=== PATIENT | male | born 1940 | race Caucasian/White ===

== ENCOUNTER → 2017-12-11 08:50 | Outpatient (CLI) | payer MEDICARE, OTHER, SELFPAY ==
[2017-09-06 13:33] VITALS: BP 122/60; BMI 26.3
--- NOTE | 2017-12-11 08:53 | CDU_ITS ---
Reason For Study: carotid stenosis Rt. Velocities/BP Lt. Velocities/BP Prox CCA 89.1/13.5 cm/sec. Prox CCA 107/15.7 cm/sec. Mid CCA 79.7/13.5 cm/sec. Mid CCA 77.0/15.7 cm/sec. Dist CCA 75.6/12.9 cm/sec. Dist CCA 78.6/14.7 cm/sec. Prox ICA 79.4/16.5 cm/sec. Prox ICA 82.1/24.0 cm/sec. Mid ICA 137/28.3 cm/sec. Mid ICA 145/38.5 cm/sec. Dist ICA 116/23.6 cm/sec. Dist ICA 89.6/22.8 cm/sec. Rt. ICA/CCA = 1.7. Lt. ICA/CCA = 1.9. Prox ECA 136/12.6 cm/sec. Prox ECA 97.9/11.1 cm/sec. Rt. Vert. 42.8/10.2 cm/sec. Lt. Vert. 72.3/17.3 cm/sec. Right Extracranial There is homogeneous, smooth atherosclerotic plaque noted in the right common carotid artery. There is heterogeneous, irregular atherosclerotic plaque noted in the right internal carotid artery. There is homogeneous, smooth atherosclerotic plaque noted in the right external carotid artery. Antegrade flow is noted in the right vertebral artery. Abnormal waveform morphology noted in the right vertebral artery. There is heterogeneous, irregular atherosclerotic plaque noted in the left bulb. Left Extracranial There is homogeneous, smooth atherosclerotic plaque noted in the left common carotid artery. There is heterogeneous, irregular atherosclerotic plaque noted in the left internal carotid artery. There is homogeneous, smooth atherosclerotic plaque noted in the left external carotid artery. Antegrade flow is noted in the left vertebral artery. There is heterogeneous, irregular atherosclerotic plaque noted in the left bulb. Procedure Carotid Duplex [id number]. The exam was diagnostic. Exam performed in department. Interpretation Summary Moderate (50-69%) stenosis right extracranial internal carotid. Moderate (50-69%) stenosis left extracranial internal carotid. Flow within the vertebral arteries is antegrade bilaterally. Ordering Physician: Cheng Youssef Performed By: Remy Villegas RVT
== END ==
PROVIDERS: Family Provider Internal Medicine; PCP Internal Medicine; Visit Provider Nurse Practitioner Family
DX: I65.23 Occlusion and stenosis of bilateral carotid arteries (principal)
CPT/HCPCS: 93880

== ENCOUNTER → 2018-04-22 10:35 | Outpatient (CLI) | payer MEDICARE, OTHER, SELFPAY ==
[2018-04-22 11:25] LABS: AST(SGOT) 27 U/L (15-37); Alanine Aminotransfer ALT/SGPT 29 U/L (16-61); Albumin, Serum 3.7 g/dL (3.2-5.0); Alkaline Phosphatase 63 U/L (45-117); Bilirubin, Direct 0.23 mg/dL (0.00-0.30); Cholesterol 161 mg/dL (200); Globulin 3.4 g/dL (2.2-4.2); High Density Lipoprotein 30 mg/dL; Protein, Total 7.1 g/dL (6.4-8.2); Triglycerides 137 mg/dL; Very Low Density Lipoprotein 27 mg/dL (5-40)
== END ==
PROVIDERS: Family Provider Internal Medicine; PCP Internal Medicine; Visit Provider Internal Medicine Cardiovascular Disease
DX: E78.5 Hyperlipidemia, unspecified (principal)
CPT/HCPCS: 36415; 80061; 80076

== ENCOUNTER → 2018-05-07 10:49 | Outpatient (CLI) | payer MEDICARE, OTHER, SELFPAY ==
[2018-05-07 12:42] LABS: Anion Gap 9 (5-15); BUN 12 mg/dL (7-18); BUN/Creat Ratio 14.4 RATIO (10-20); Calcium,Total 8.7 mg/dL (8.5-10.1); Chloride 108 mmol/L (98-107); Creatinine, Serum 0.83 mg/dL (0.70-1.30); EST Glomerular Filtration Rate 95 mL/min (>60); Est Glom Filt Rate - Afr Amer 115 mL/min (>60); Glucose 129 mg/dL (74-106); Potassium 3.7 mmol/L (3.5-5.1); Sodium Level 140 mmol/L (136-145)
[2018-05-07 12:56] LABS: BNP,B-Type NATRIURETIC PEPTIDE 580.8 pg/mL (0-100)
== END ==
PROVIDERS: Family Provider Internal Medicine; PCP Internal Medicine; Referring Provider Nurse Practitioner Family; Visit Provider Nurse Practitioner Family
DX: R06.09 Other forms of dyspnea (principal); I25.10 Atherosclerotic heart disease of native coronary artery without angina pectoris; Z95.1 Presence of aortocoronary bypass graft
CPT/HCPCS: 36415; 80048; 83880

== ENCOUNTER → 2018-10-15 11:55 | Outpatient (CLI) | payer MEDICARE, OTHER, SELFPAY ==
[2018-10-15 10:10] VITALS: BMI 25.7
--- NOTE | 2018-10-15 12:01 | RAD_ITS ---
STUDY: X-RAY CHEST REASON FOR EXAM: Male, 78 years old. Shortness of breath TECHNIQUE: PA and lateral views of the chest. COMPARISON: 08/18/2014 FINDINGS: Stable calcified right midlung granuloma The lungs are clear and expanded. There is no demonstrated pleural abnormality. Sternal cerclage wires and vascular clips are present from a prior sternotomy and coronary artery bypass graft procedure (CABG). Mild cardiomegaly. Normal mediastinum and susie. Normal visualized pulmonary arteries. Normal visualized aortic arch and descending thoracic aorta. Normal visualized thoracic spine. Normal visualized ribs, clavicles, and shoulders. There is no demonstrated abnormality of the visualized soft tissue structures of the upper abdomen. RAD/Chest PA and Lateral IMPRESSION: No acute cardiopulmonary disease Electronically Signed: Sam Rea DO at 11:38 EDT Tel , Service support ,
[2018-10-15 12:50] LABS: Absolute Lymphocyte Count 1.53 X10^3/ul (0.83-4.51); Absolute Neutrophil Count 2.8 X10^3/uL (2.0-7.7); Basophil# 0.04 X10^3/uL; Basophil% 0.8 % (0-1); Eosinophil# 0.26 X10^3/uL; Eosinophils% 5.2 % (0-5); Hematocrit 41.5 % (40-54); Hemoglobin 13.9 g/dl (13.0-16.5); Lymphocyte # 1.53 X10^3/ul (4.0); Lymphocyte % 30.4 % (19-41); Mean Corp Hgb Conc 33.5 g/gl (32-36); Mean Corpuscular Hgb 30.2 pg (27.0-32.0); Mean Corpuscular Volume 90.2 fL (80-94); Mean Platelet Vol. 10.5 fl (6.2-12.0); Neutrophil # 2.79 X10^3/uL (2.7-7.7); Neutrophil % 55.4 % (47-70); Platelet Count 286 K/mm3 (150-450); RBC Distribution Width CV 13.9 % (11.6-14.6); RBC Distribution Width SD 45.4 fl (35.1-43.9)
[2018-10-15 12:51] LABS: POSITIVE COUNT NO; POSITIVE DIFFERENTIAL NO; POSITIVE MORPHOLOGY NO
[2018-10-15 13:13] LABS: Anion Gap 9 (5-15); BUN 12 mg/dL (7-18); BUN/Creat Ratio 16.1 RATIO (10-20); Calcium,Total 9.6 mg/dL (8.5-10.1); Chloride 105 mmol/L (98-107); Creatinine, Serum 0.74 mg/dL (0.70-1.30); EST Glomerular Filtration Rate 108 mL/min (>60); Est Glom Filt Rate - Afr Amer 130 mL/min (>60); Glucose 106 mg/dL (74-106); Potassium 4.3 mmol/L (3.5-5.1); Sodium Level 139 mmol/L (136-145)
[2018-10-15 13:28] LABS: BNP,B-Type NATRIURETIC PEPTIDE 201.3 pg/mL (0-100)
== END ==
LOC: POLAB3 11:57 → RAD 11:59
PROVIDERS: Family Provider Internal Medicine; PCP Internal Medicine; Referring Provider Physician Assistant Medical; Visit Provider Physician Assistant Medical
DX: I25.10 Atherosclerotic heart disease of native coronary artery without angina pectoris (principal); I65.23 Occlusion and stenosis of bilateral carotid arteries; E78.00 Pure hypercholesterolemia, unspecified; I10 Essential (primary) hypertension; R06.09 Other forms of dyspnea
CPT/HCPCS: 36415; 71046; 80048; 83880; 85025

== ENCOUNTER → 2018-11-11 06:41 | Outpatient (CLI) | payer MEDICARE, OTHER, SELFPAY ==
[2018-10-15 10:10] VITALS: BMI 25.7
--- NOTE | 2018-11-11 06:43 | CDU_ITS ---
Reason For Study: BRUIT Rt. Velocities/BP Lt. Velocities/BP Prox CCA 85/8 cm/sec. Prox CCA 147/0 cm/sec. Mid CCA 83/8 cm/sec. Mid CCA 83/15 cm/sec. Dist CCA 64/12 cm/sec. Dist CCA 72/15 cm/sec. Prox ICA 67/14 cm/sec. Prox ICA 121/23 cm/sec. Mid ICA 115/22 cm/sec. Mid ICA 78/16 cm/sec. Dist ICA 140/15 cm/sec. Dist ICA 86/18 cm/sec. Rt. ICA/CCA = 1.6. Lt. ICA/CCA = .8. Prox ECA 126/0 cm/sec. Prox ECA 169/33 cm/sec. Rt. Vert. 77/15 cm/sec. Lt. Vert. 98/18 cm/sec. Right Extracranial There is intimal thickening but no significant atherosclerotic plaque noted in the right common carotid artery. There is heterogeneous, irregular atherosclerotic plaque noted in the right internal carotid artery. There is heterogeneous, smooth atherosclerotic plaque noted in the right external carotid artery. Antegrade flow is noted in the right vertebral artery. There is heterogeneous, smooth atherosclerotic plaque noted in the right bulb. Left Extracranial There is homogeneous, smooth atherosclerotic plaque noted in the left common carotid artery. There is heterogeneous, irregular atherosclerotic plaque noted in the left internal carotid artery. There is heterogeneous, irregular atherosclerotic plaque noted in the left external carotid artery. The Doppler flow velocities are elevated in the left vertebral artery, suggesting stenosis. Antegrade flow is noted in the left vertebral artery. There is heterogeneous, irregular atherosclerotic plaque noted in the left bulb. Procedure Carotid Duplex [id number]. Exam performed in department. Interpretation Summary Mild (<50%) stenosis right extracranial internal carotid. Moderate (50-69%) stenosis left extracranial internal carotid. Flow within the vertebral arteries is antegrade bilaterally. Ordering Physician: Lakshmi Raman Referring Physician: FAVIO RODRIGUEZ Performed By: Roma Barbosa, JOSE, RVT
--- NOTE | 2018-11-11 06:43 | ECHOCS_ITS ---
Reason For Study: Dyspnea/SOB Procedure This was a 2D Doppler, Color Flow transthoracic echocardiogram. Exam performed in department. Left Ventricle Normal LV size. The estimated ejection fraction is 50 %. Left ventricular systolic function is lower limits of normal. No regional wall motion abnormalities noted. Right Ventricle Normal RV size. Normal systolic function. Atria The left atrium is mildly enlarged. Normal right atrium. Mitral Valve Normal mitral valve. Mild-Moderate (1-2+) eccentric mitral valve insufficiency. Tricuspid Valve Normal tricuspid valve. Mild to moderate (1-2+) tricuspid valve insufficiency. Pulmonary artery systolic pressure is 50 mmHg. Aortic Valve Trisinus/trileaflet aortic valve. Mild focal aortic valve calcification. Peak aortic valve gradient 18 mmHg. Mean aortic valve gradient 9.4 mmHg. Mild (1+) eccentric aortic valve insufficiency. Pulmonic Valve Normal pulmonic valve. Great Vessels Normal aortic root. The pulmonary artery is normal size. Normal inferior vena cava. Pericardium/Pleural No pericardial effusion. Medication 22 gauge I.V. with prn adaptor inserted into right arm. Diluted definity 2ml given slow IV push to enhance endocardial definition. MMode/2D Measurements & Calculations LVIDd: 5.2 cm IVSd: 0.93 cm LVOT diam: 2.0 cm LVIDs: 3.8 cm LVPWd: 0.99 cm FS: 26.8 % LVOT area: 3.2 cm2 Ao root diam: 3.1 cm LAV(MOD-bp): 68.8 ml LVAd ap4: 40.7 cm2 LA dimension: 4.7 cm LAV(MOD-bp) Indexed: 33.0 ml/m2 EDV(MOD-sp4): 152.0 ml LAV(MOD-sp2): 66.8 ml EDV(sp4-el): 161.5 ml LAV(MOD-sp4): 70.3 ml LVAs ap4: 22.6 cm2 ESV(MOD-sp4): 59.1 ml ESV(sp4-el): 61.7 ml EF(MOD-sp4): 61.1 % EF(sp4-el): 61.8 % SV(MOD-sp4): 92.8 ml SV(sp4-el): 99.8 ml LA A4 area: 23.9 cm2 RA A4 area: 18.6 cm2 Time Measurements MV dec time: 0.17 sec Doppler Measurements & Calculations MV E max tacho: 81.5 cm/sec Med Peak E' Tacho: 5.8 cm/sec MV V2 max: 84.4 cm/sec MV A max tacho: 43.0 cm/sec E/E' med: 14.0 MV max P.9 mmHg MV E/A: 1.9 MV V2 mean: 51.3 cm/sec MV mean P.2 mmHg MV V2 VTI: 25.3 cm MVA(VTI): 3.5 cm2 MV P1/2t max tacho: 84.4 cm/sec Ao V2 max: 216.7 cm/sec AI max tacho: 394.5 cm/sec MV P1/2t: 85.4 msec Ao max P.8 mmHg AI max P.3 mmHg MV dec slope: 289.6 cm/sec2 Ao V2 mean: 139.4 cm/sec AI dec slope: 254.8 cm/sec2 Ao mean P.4 mmHg AI P1/2t: 453.6 msec MVA(P1/2t): 2.6 cm2 Ao V2 VTI: 56.1 cm ERIN(I,D): 1.6 cm2 ERIN(V,D): 1.7 cm2 LV V1 max: 116.2 cm/sec MR max tacho: 597.5 cm/sec SV(LVOT): 88.4 ml LV V1 max P.4 mmHg MR max P.8 mmHg LV V1 mean P.4 mmHg LV V1 mean: 69.2 cm/sec LV V1 VTI: 27.4 cm PA V2 max: 60.8 cm/sec PI end-d tacho: 124.2 cm/sec TR max tcaho: 335.1 cm/sec TR max P.9 mmHg Interpretation Summary Normal LV size. The estimated ejection fraction is 50 %. Left ventricular systolic function is lower limits of normal. The left atrium is mildly enlarged. Mild-Moderate (1-2+) eccentric mitral valve insufficiency. Mild to moderate (1-2+) tricuspid valve insufficiency. Mean aortic valve gradient 9.4 mmHg. Compared to previous study, the left ventricular systolic function is the same.. Ordering Physician: Lakshmi Raman Referring Physician: Laura Shannon Performed By: Jorge L Garcia RCS
--- NOTE | 2018-11-11 08:36 | STRESSREP ---
Stress Test Report Pharmacologic myocardial perfusion stress test. 78-year-old man with a history of chest pain and coronary artery disease. Stress protocol: Resting EKG demonstrates sinus bradycardia with a rate of 49 bpm normal intervals are noted resting blood pressure 170/80 mmHg. 0.4 mg of regadenoson was infused per usual protocol followed by rapid intravenous saline flush injection continuous EKG monitoring was performed. Patient maintained sinus rhythm throughout the recording. At rest there were nonspecific ST-T wave changes noted at peak infusion nonspecific ST-T wave changes were noted. The resting blood pressure 170/80 mmHg with a final blood pressure 140/82 mmHg. Myocardial perfusion protocol. 14.1 mCi of technetium 99m sestamibi was injected at rest. 0.4 mg of regadenoson was infused per usual protocol. At peak infusion 43.6 mCi of technetium 99m sestamibi was injected stress images were obtained stress and rest images were reconstructed and compared in the short axis vertical long horizontal long axis. Gated images were also obtained per Perfusion SPECT analysis: Review of the stress images demonstrate normal uptake of tracer noted in all areas of the myocardium. The resting images similarly demonstrate normal uptake of tracer noted in all areas of the myocardium. No areas of reversibility are noted suggest ischemia no previous infarct is noted. Gated SPECT analysis: The gated ejection fraction is noted to be 64%. Conclusion: Normal pharmacologic myocardial perfusion stress test. Preserved ejection fraction.
== END ==
PROVIDERS: Family Provider Internal Medicine; PCP Internal Medicine; Referring Provider Physician Assistant Medical; Visit Provider Physician Assistant Medical
DX: I25.10 Atherosclerotic heart disease of native coronary artery without angina pectoris (principal); Z95.1 Presence of aortocoronary bypass graft; R06.09 Other forms of dyspnea; I10 Essential (primary) hypertension; E78.00 Pure hypercholesterolemia, unspecified; I65.23 Occlusion and stenosis of bilateral carotid arteries; R06.02 Shortness of breath
CPT/HCPCS: 78452; 93017; 93306; 93880; A9500; Q9957; A4216; C8929; J2785

== ENCOUNTER → 2018-12-10 10:15 | Outpatient (CLI) | payer MEDICARE, OTHER, SELFPAY ==
[2018-11-21 10:00] VITALS: BMI 25.7
[2018-12-10 11:51] LABS: Anion Gap 7 (5-15); BUN 15 mg/dL (7-18); BUN/Creat Ratio 19.5 RATIO (10-20); Calcium,Total 9.3 mg/dL (8.5-10.1); Chloride 106 mmol/L (98-107); Creatinine, Serum 0.77 mg/dL (0.70-1.30); EST Glomerular Filtration Rate 104 mL/min (>60); Est Glom Filt Rate - Afr Amer 125 mL/min (>60); Glucose 112 mg/dL (74-106); Potassium 4.1 mmol/L (3.5-5.1); Sodium Level 141 mmol/L (136-145)
== END ==
PROVIDERS: Family Provider Internal Medicine; PCP Internal Medicine; Referring Provider Physician Assistant Medical; Visit Provider Physician Assistant Medical
DX: R06.09 Other forms of dyspnea (principal)
CPT/HCPCS: 36415; 80048

== ENCOUNTER → 2019-09-04 14:37 | Outpatient (CLI) | payer MEDICARE, OTHER, SELFPAY ==
[2019-07-17 10:17] VITALS: BMI 25.4
--- NOTE | 2019-09-04 14:41 | RAD_ITS ---
STUDY: X-RAY CHEST REASON FOR EXAM: Male, 79 years old. Fever and cough TECHNIQUE: PA and lateral views of the chest. COMPARISON: 10/15/2018 FINDINGS: There are interstitial fibrotic changes of the lungs. There is no demonstrated pleural abnormality. Stable granulomas calcification in the right lower lobe Sternal cerclage wires and vascular clips are present from a prior sternotomy and coronary artery bypass graft procedure (CABG). Normal mediastinum and susie. Normal visualized pulmonary arteries. Normal visualized aortic arch and descending thoracic aorta. Normal visualized thoracic spine. Normal visualized ribs, clavicles, and shoulders. There is no demonstrated abnormality of the visualized soft tissue structures of the upper abdomen. RAD/Chest PA and Lateral IMPRESSION: Degenerative changes, as described above. No demonstrated acute cardiopulmonary process. Electronically Signed: Augustus Ray MD at 10:29 EST , Service support ,
== END ==
PROVIDERS: PCP Internal Medicine; Referring Provider Internal Medicine; Visit Provider Internal Medicine
DX: R50.9 Fever, unspecified (principal)
CPT/HCPCS: 71046

== ENCOUNTER → 2020-05-11 15:48 | Outpatient (CLI) | payer MEDICARE, OTHER, SELFPAY ==
[2020-03-16 09:45] VITALS: BMI 25.6
== END ==
PROVIDERS: PCP Internal Medicine; Referring Provider Nurse Practitioner Adult Health; Visit Provider Nurse Practitioner Adult Health
DX: N30.01 Acute cystitis with hematuria (principal)
CPT/HCPCS: 87086; 87088; 87186

== ENCOUNTER → 2020-10-12 09:15 | Outpatient (CLI) | payer MEDICARE, OTHER, SELFPAY ==
[2020-09-30 13:38] VITALS: BMI 26.0
--- NOTE | 2020-10-12 09:19 | ECHOD_ITS ---
Reason For Study: SOB Procedure This was a 2D Doppler, Color Flow transthoracic echocardiogram. Exam performed in department. Left Ventricle Normal LV size. Left ventricular systolic function is normal. The estimated ejection fraction is 55 %. No regional wall motion abnormalities noted. Right Ventricle Normal RV size. Normal systolic function. Atria The left atrium is mildly enlarged. Normal right atrium. Mitral Valve Normal mitral valve. Mild-Moderate (1-2+) eccentric mitral valve insufficiency. Tricuspid Valve Normal tricuspid valve. Mild to moderate (1-2+) tricuspid valve insufficiency. Pulmonary artery systolic pressure is 38 mmHg. Aortic Valve Trisinus/trileaflet aortic valve. Mild focal aortic valve calcification. Peak aortic valve gradient 22 mmHg. Mean aortic valve gradient 16 mmHg. Calculated aortic valve area (continuity equation) is 1.6 cm2. Mild (1+) eccentric aortic valve insufficiency. Pericardium/Pleural No pericardial effusion. MMode/2D Measurements & Calculations LVIDd: 4.6 cm IVSd: 1.0 cm LVOT diam: 2.0 cm LVIDs: 3.5 cm LVPWd: 1.1 cm LVOT area: 3.2 cm2 RVDd: 3.5 cm FS: 24.4 % Ao root diam: 3.2 cm LAV(MOD-bp): 71.4 ml LA A4 area: 24.4 cm2 LAV(MOD-bp) Indexed: 34.4 ml/m2 LAV(MOD-sp2): 63.2 ml LAV(MOD-sp4): 73.2 ml LA dimension(2D): 4.9 cm RA A4 area: 18.6 cm2 Doppler Measurements & Calculations MV E max memo: 90.0 cm/sec Ao V2 max: 235.3 cm/sec AI max memo: 398.5 cm/sec Ao max P.3 mmHg AI max P.6 mmHg Ao V2 mean: 165.3 cm/sec Ao mean P.3 mmHg AI dec slope: 269.9 cm/sec2 Ao V2 VTI: 53.8 cm AI P1/2t: 432.4 msec ERIN(I,D): 1.5 cm2 ERIN(V,D): 1.6 cm2 LV V1 max: 116.5 cm/sec SV(LVOT): 82.1 ml PA V2 max: 72.0 cm/sec LV V1 max P.4 mmHg LV V1 mean P.7 mmHg LV V1 mean: 77.6 cm/sec LV V1 VTI: 25.3 cm TR max memo: 290.4 cm/sec TR max P.9 mmHg Interpretation Summary Normal LV size. Left ventricular systolic function is normal. The estimated ejection fraction is 55 %. Mean aortic valve gradient 16 mmHg. Mild (1+) eccentric aortic valve insufficiency. Calculated aortic valve area (continuity equation) is 1.6 cm2. The left atrium is mildly enlarged. Ordering Physician: Cheng Youssef/Benito Diaz Referring Physician: Laura Shannon M.D. Performed By: Teresa Jon RDCS
[2020-10-12 10:14] LABS: AST(SGOT) 33 U/L (15-37); Alanine Aminotransfer ALT/SGPT 37 U/L (16-61); Albumin, Serum 3.8 g/dL (3.2-5.0); Alkaline Phosphatase 84 U/L (45-117); Bilirubin, Direct 0.23 mg/dL (0.00-0.30); Cholesterol 202 mg/dL (200); Globulin 3.7 g/dL (2.2-4.2); High Density Lipoprotein 34 mg/dL; Protein, Total 7.5 g/dL (6.4-8.2); Triglycerides 183 mg/dL; Very Low Density Lipoprotein 37 mg/dL (5-40)
== END ==
PROVIDERS: PCP Internal Medicine; Referring Provider Nurse Practitioner Family; Visit Provider Nurse Practitioner Family
DX: I25.10 Atherosclerotic heart disease of native coronary artery without angina pectoris (principal); Z95.1 Presence of aortocoronary bypass graft; E78.00 Pure hypercholesterolemia, unspecified; I10 Essential (primary) hypertension; G45.9 Transient cerebral ischemic attack, unspecified
CPT/HCPCS: 36415; 80061; 80076; 93306

== ENCOUNTER → 2021-01-13 06:21 | Outpatient (CLI) | payer MEDICARE, OTHER, SELFPAY ==
[2021-01-06 14:30] VITALS: BMI 26.0
--- NOTE | 2021-01-13 06:23 | CDU_ITS ---
Reason For Study: Lightheadedness Rt. Velocities/BP Lt. Velocities/BP Prox CCA 61.7/10.8 cm/sec. Prox CCA 77.2/10.2 cm/sec. Mid CCA 60.4/8.2 cm/sec. Mid CCA 57.5/6.9 cm/sec. Dist CCA 55.2/12.1 cm/sec. Dist CCA 53.1/9.1 cm/sec. Prox ICA 53.9/8.2 cm/sec. Prox ICA 77.3/24.5 cm/sec. Mid ICA 76/16 cm/sec. Mid ICA 135.7/27.9 cm/sec. Dist ICA 96.3/13.9 cm/sec. Dist ICA 72.8/15.1 cm/sec. Rt. ICA/CCA = 1.59. Lt. ICA/CCA = 2.36. Prox ECA 95.6 cm/sec. Prox ECA 66.2 cm/sec. Rt. Vert. 64.1 cm/sec. Lt. Vert. 81.4/12.6 cm/sec. Right Extracranial There is intimal thickening but no significant atherosclerotic plaque noted in the right common carotid artery. There is heterogeneous, irregular atherosclerotic plaque noted in the right internal carotid artery. There is heterogeneous, smooth atherosclerotic plaque noted in the right external carotid artery. Abormal waveform morphology noted in the right vertebral artery. There is heterogeneous, irregular atherosclerotic plaque noted in the right bulb. Left Extracranial There is homogeneous, smooth atherosclerotic plaque noted in the left common carotid artery. There is heterogeneous, irregular atherosclerotic plaque noted in the left internal carotid artery. There is heterogeneous, irregular atherosclerotic plaque noted in the left external carotid artery. Antegrade flow is noted in the left vertebral artery. There is heterogeneous, irregular atherosclerotic plaque noted in the left bulb. Procedure Carotid Duplex [id number]. This is a Carotid Duplex examination using B-mode, color flow and specral Doppler. Exam performed in department. VL/Carotid Duplex Ultrasound Interpretation Summary Mild (<50%) stenosis right extracranial internal carotid. Moderate (50-69%) ivone nosis left extracranial internal carotid. Flow within the vertebral arteries is antegrade bilaterally. Ordering Physician: Cheng Youssef Referring Physician: Laura Shannon M.D. Performed By: Francisca Cabrera RVT
--- NOTE | 2021-01-13 17:16 | STRESSREP_ITS ---
Stress Test Report Pharmacologic myocardial perfusion stress test. 80-year-old male with a history of coronary artery disease status post carotid bypass surgery and atrial fibrillation. Stress protocol: Resting EKG demonstrates sinus bradycardia with a rate of 52 bpm normal intervals are noted. Resting blood pressure is 142/70 mmHg. 0.4 mg of regadenoson was infused per usual protocol followed by rapid venous flush injection continuous EKG monitoring was performed. The patient maintained atrial fibrillation throughout the recording. The maximum heart rate was 75 bpm which was 53% of max infected heart rate the maximum workload was 1 metabolic equivalent. At rest there were no ST or T wave changes noted to suggest abnormal flow reserve and at peak infusion nonspecific ST changes were noted with did not meet the criteria for abnormal flow reserve. No clinical angina was noted the resting blood pressure is 142/70 mmHg final blood pressure is 13 8/70 mmHg. Myocardial perfusion protocol. 11.3 mCi of technetium 99m sestamibi was injected at rest. 0.4 mg of regadenoson was infused per usual protocol. At peak infusion 31.3 mCi of technetium 99m sestamibi was injected stress images were obtained stress and rest images were reconstructed in comparing the short axis vertical long and horizontal long axis. Gated images were also obtained per Perfusion SPECT analysis: Review of the stress images demonstrate normal uptake of tracer noted in all areas of the myocardium. There is probable mild diminution of uptake noted in the distal anterior wall. The resting images similarly demonstrate normal uptake of tracer noted in all areas of the myocardium. The mild diminution in the distal anterior mcfarlane persists. No areas of reversibility are noted suggest ischemia and no previous infarct is noted. Gated SPECT analysis: The gated ejection fraction is 69%. Conclusion: Normal pharmacologic myocardial perfusion stress test. Preserved ejection fraction. Atrial fibrillation.
== END ==
PROVIDERS: PCP Internal Medicine; Referring Provider Nurse Practitioner Family; Visit Provider Nurse Practitioner Family
DX: I65.22 Occlusion and stenosis of left carotid artery (principal); R42 Dizziness and giddiness; Z95.1 Presence of aortocoronary bypass graft; I25.10 Atherosclerotic heart disease of native coronary artery without angina pectoris; I50.32 Chronic diastolic (congestive) heart failure; I11.0 Hypertensive heart disease with heart failure; E78.00 Pure hypercholesterolemia, unspecified
CPT/HCPCS: 78452; 93017; 93880; A9500; A4216; J2785

== ENCOUNTER → 2021-02-07 13:53 | Outpatient (CLI) | payer MEDICARE, OTHER, SELFPAY ==
[2021-01-28 11:55] VITALS: BMI 25.4
--- NOTE | 2021-02-07 13:55 | ART_ITS ---
Reason For Study: Claudication Procedure A bilateral lower extremity continuous wave Doppler with analog waveform analysis,segmental pressures,and ankle brachial indexes without exercise. Left Segmental Pressures Left brachial= 132mmHg. Left posterior tibial artery = 176mmHg. Left dorsalis pedis artery = 165mmHg. Right Segmental Pressures Right brachial= 135mmHg. Right posterior tibial artery = 140mmHg. Right dorsalis pedis artery = 154mmHg. Indices The right ankle brachial index by the posterior tibial artery is 1.04. The right ankle brachial index by the dorsalis pedis is 1.14. The left ankle brachial index by the posterior tibial artery is 1.30. The left ankle brachial index by the dorsalis pedis is 1.22. VL/Lower Ext Art Exam w/o Exercis Interpretation Summary No evidence of occlusive disease at rest with an HARPER 1.14 on the right and 1.3 on the left. Bilateral triphasic flow. Ordering Physician: Cheng Youssef Referring Physician: Cheng Youssef Performed By: Harriet Youssef RDCS/RVT
== END ==
PROVIDERS: PCP Internal Medicine; Referring Provider Nurse Practitioner Family; Visit Provider Nurse Practitioner Family
DX: I73.9 Peripheral vascular disease, unspecified (principal)
CPT/HCPCS: 93923

== ENCOUNTER 2021-04-14 09:59 | Day surgery (SDC) | payer MEDICARE, OTHER, SELFPAY ==
--- NOTE | 2021-04-07 12:07 | RAD_ITS ---
STUDY: X-RAY CHEST REASON FOR EXAM: Male, 80 years old. For [employer] VR implant with Dr. Diaz on 04/14/2021. TECHNIQUE: Frontal and lateral views of the chest. COMPARISON: 09/04/2019. FINDINGS: Stable mild hyperexpansion. Stable scattered healed granulomatous calcifications. There is no demonstrated pleural abnormality. Stable cardiomegaly with sternotomy wires and clips projected over the cardiac silhouette. Normal mediastinum and susie. Normal visualized pulmonary arteries. Normal visualized aortic arch and descending thoracic aorta. Normal visualized thoracic spine. Normal visualized ribs, clavicles, and shoulders. There is no demonstrated abnormality of the visualized soft tissue structures of the upper abdomen. RAD/Chest PA and Lateral IMPRESSION: Stable chest with no acute or active cardiopulmonary disease. Electronically Signed: Elie Toribio MD at 10:48 EDT , Service support ,
[2021-04-07 12:35] LABS: Bacteria 0 SEEN /hpf (None Seen); Mucous, Urine 0 SEEN /hpf (<or=2+); Red Blood Cells-Urine 0 SEEN /hpf (0-5); Squamous Epithelial Cells - UA 0 SEEN /hpf (0-5); White Blood Cells 0 SEEN /hpf (0-5)
[2021-04-07 13:05] LABS: Hemoglobin 13.4 g/dL (13.0-16.5); Mean Corp Hgb Conc 35.3 g/dL (32-36); Mean Corpuscular Hgb 31.9 pg (27.0-32.0); Mean Corpuscular Volume 90.5 fL (80-94); Mean Platelet Vol. 10.4 fl (6.2-12.0); Platelet Count 261 K/mm3 (150-450); RBC Distribution Width CV 13.3 % (11.6-14.6); RBC Distribution Width SD 44.1 fl (35.1-43.9); White Blood Count 4.5 K/mm3 (4.4-11.0)
[2021-04-07 13:16] LABS: International Normalized Ratio 1.3
[2021-04-07 13:22] LABS: Color, Urine Yellow (Yellow); Glucose, Dipstick Normal (Normal); Ketone-Dipstick Negative (Negative); Leukocyte Esterase-Dipstick Negative /ul (Negative); Nitrite-Dipstick Negative (Negative); Occult Blood-Urine Negative /ul (Negative); Protein-Dipstick Negative (Negative); Specific Gravity, Urine 1.005 (1.002-1.030); Urine Bilirubin Dipstick Negative (Negative); Urine Clarity Clear (Clear); Urine Urobilinogen Normal (Normal)
[2021-04-07 13:27] LABS: Anion Gap 6 (5-15); BUN 16 mg/dL (7-18); BUN/Creat Ratio 16.1 RATIO (10-20); Calcium,Total 9.1 mg/dL (8.5-10.1); Chloride 104 mmol/L (98-107); EST Glomerular Filtration Rate 77 mL/min (>60); Est Glom Filt Rate - Afr Amer 93 mL/min (>60); Glucose 134 mg/dL (74-106); Potassium 3.9 mmol/L (3.5-5.1); Sodium Level 136 mmol/L (136-145)
[2021-04-08 16:25] LABS: Specimen Processing Control TNPT
[2021-04-13 10:01] VITALS: BMI 26.0
--- NOTE | 2021-04-14 08:19 | PCM.HP.BLA ---
History and Physical Date of Admission: 04/14/21 REMY BLACKBURN, is a 80 M who [facility] to [facility]ra Pacemaker placement. He has a history of coronary artery disease with bypass surgery in 2000. He did have a left internal mammary artery to the left anterior descending artery and diagonal as a sequential graft, radial graft to the obtuse marginal branch, and saphenous vein graft to the right coronary artery. He also has a history of hypertension, hyperlipidemia, left carotid stenosis estimated at 50 to 70%. He presents for follow-up visit. He completed a 30-day event monitor to assess paroxysmal atrial fibrillation. During such monitoring he has had multiple pauses 3 seconds or greater. This included a 3.3 seconds, two at 3 seconds, and a 3.4 seconds. He has also had short runs of ventricular tachycardia. He had atrial fibrillation throughout. He was initially started on Eliquis and metoprolol therapy. After noted pauses, his beta-loly was discontinued. He continued to have pauses after discontinuing beta-loly. He denies chest, arm, jaw, or neck discomfort. He continues with shortness of breath with exertion. He does not feel this to be worsening. This is most noted when carrying something. He denies symptoms of shortness of breath at rest, orthopnea, PND, sudden weight gain, or bilateral lower extremity edema. He denies chronic cough. He denies palpitations, lightheadedness, near syncope, or syncopal episodes. He states dizziness with position changes. He denies claudication issues. He denies fever or chills. He denies blood in urine, blood in stool, or epistaxis. He denies myalgia. He denies unexplainable fatigue. His exercise tolerance is stable. He does acknowledge intermittent snoring. He states difficulty sleeping. 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: No Is patient in pain?: No Allergies No Known Allergies Allergy (Verified 02/28/21 14:36) Medications See EMR COUNT INCLUDES THE [facility] Medical History (Updated 03/22/21 @ 14:09 by Danielle Rendon) Atherosclerosis of coronary artery of [place] heart without angina pectoris Chronic diastolic (congestive) heart failure Dizziness and giddiness Dyspnea on exertion Edema Essential (primary) hypertension 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 Persistent atrial fibrillation Pulmonary embolism Pure hypercholesterolemia Secondary pulmonary arterial hypertension Shortness of breath Sick sinus syndrome Stenosis of left carotid artery TIA (transient ischemic attack) Surgical History H/O coronary artery bypass surgery (06/2001) History of hip replacement History of skin graft 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 Family History Father CAD (coronary artery disease) Mother CAD (coronary artery disease) Brother CAD (coronary artery disease) Social History Smoking Status: Never smoker alcohol intake: never substance use type: does not use caffeine: Yes Type: coffee Number of servings: 2 ROS Const Const: Negative for fatigue, weakness, body ache, fever(s) or chills ENT ENT: Positive for dizziness; Negative for Nosebleed/epistaxis Cardio Chest Pain: No Palpitations: No Edema: None Muscle aches with walking: None Resp Respiratory: Positive for SOB with activity and snoring; Negative for SOB at rest, SOB orthopnea\SOB lying down, Cough or paroxysmal nocturnal dyspnea GI GI: Negative nausea, vomiting blood/hematemesis, bright, red blood in stools or black,tarry stools : Negative for hematuria or frequent nighttime urination/ nocturia Musc Musc: Negative for muscle aches/ myalgia Skin Skin: Negative non-healing lesions or rash Neuro Neuro: Positive for dizziness; Negative for lightheadedness, near syncope, syncope, orthostatic symptoms or weakness Endo Endo: Negative for fatigue Allergy Allergy/Immunology: Negative for rash Cardiology Exam Const Appearance: cooperative, healthy appearing, comfortable and no acute distress Nutritional Appearance: average body habitus and well nourished Orientation: alert, awake and oriented x3 Head Head: normal to inspection Ears: hearing grossly normal bilaterally Nose: external nose normal Face and Sinus: face symmetric Mouth: oral mucosae normal Eyes General: appearance normal, both eyes and all related structures Eyelids: eyelids normal EOM: EOM intact bilaterally Neck Neck: normal visual inspection and no JVD Carotids: normal carotid upstroke Chest Chest inspection: normal inspection of the chest, symmetric chest movement and normal respiratory effort; Negative cough Auscultation: Bilateral: Clear to Auscultation Cardio Rate: regular rate Rhythm: regular rhythm Heart sounds: S1 normal and S2 normal; Negative rub, gallop or murmur GI GI: normal to inspection Neuro General: patient alert, patient awake, patient oriented x3 and CN's II-XI intact bilaterally Skin Skin: no rashes or lesions noted Extremities Pulses: Normal: Right Posterior Tibial Pulse, Left Posterior Tibial Pulse, Right Radial Pulse and Left Radial Pulse Lower Extremity Edema: None: Bilateral Psych Psychological: normal affect Assessment and Plan Assessment and Plan (1) H/O coronary artery bypass surgery: Status: Resolved Comment: CABG x 4 Sequential ARREAGA to LAD and D1, radial graft to OM1, SVG to RCA 06/2001 Plan - Cheng Youssef NP, SCIENTIFIC AFFAIRS MANAGER-C: His most recent stress test on 01/13/2021 was negative for ischemia. He denies any chest, arm, jaw, or neck discomfort suggestive of angina. His shortness of breath is slightly improved. At this time, he will continue current medical therapy and we will continue to monitor. (2) Atherosclerosis of coronary artery of [place] heart without angina pectoris: Status: Chronic Qualifiers: Coronary Disease-Associated Artery/Lesion type: [place] artery Qualified Code(s): I25.10 - Atherosclerotic heart disease of [place] coronary artery without angina pectoris Plan - Cheng Youssef NP, SCIENTIFIC AFFAIRS MANAGER-C: He will continue current medical therapy. (3) Chronic diastolic (congestive) heart failure: Status: Chronic Gerardo - Cheng Youssef NP, SCIENTIFIC AFFAIRS MANAGER-C: He does knowledge improvement in symptoms since increasing hydrochlorothiazide therapy. However, his shortness of breath remains. At this time, he will continue current medical therapy and we will continue to monitor. We will consider laboratory evaluation or Lasix therapy in the future depending on overall progress. (4) Nonrheumatic aortic (valve) stenosis with insufficiency: Status: Chronic Gerardo - hCeng Youssef NP, SCIENTIFIC AFFAIRS MANAGER-C: This appears stable. He will continue current medical therapy. (5) Essential (primary) hypertension: Status: Chronic Gerardo - Cheng Youssef NP, SCIENTIFIC AFFAIRS MANAGER-C: Over time, depending on overall progress, we could consider tighter blood pressure control with additional agents such as amlodipine. (6) Pure hypercholesterolemia: Status: Chronic Gerardo - Cheng Youssef NP, SCIENTIFIC AFFAIRS MANAGER-C: He will continue current medical therapy . (7) Stenosis of left carotid artery: Status: Chronic Gerardo - Cheng Youssef NP, SCIENTIFIC AFFAIRS MANAGER-C: He will continue current medical therapy. (8) Sinus pause: Status: Acute Plan - Cheng Youssef SCIENTIFIC AFFAIRS MANAGER, SCIENTIFIC AFFAIRS MANAGER-C: He has had multiple episodes of pauses greater than 3 seconds. These appear to be occurring in [employer] [facility] [employer] and patient appears asymptomatic with such. At this time, he was asked to proceed with Micra pacemaker placement. This will also help assess and assist with atrial fibrillation management as well. (9) Paroxysmal atrial fibrillation: Status: Acute Plan - Cheng Youssef SCIENTIFIC AFFAIRS MANAGER, SCIENTIFIC AFFAIRS MANAGER-C: Patient's 30-day event monitor has predominantly showed atrial fibrillation. Due to pauses, we will not reinitiate beta-loly therapy. He will continue with Eliquis therapy for CVA protection. Over time, we will continue to monitor associated symptoms and consider antiarrhythmic medication or cardioversion as necessary along with beta loly therapy for rate control. Plan Details Additional Comments: Thank you for allowing us to participate in the patients plan of care, if you have any questions please do not hesitate to call. This note was generated using a voice recognition system and there may be incorrect words, spelling or punctuation that were not noted when reviewing the office note prior to saving. COVID (Procedure Consent) Procedure Criteria Procedure Criteria: Yes Elective The surgeon/proceduralist and patient have discussed in detail the risk of exposure to and/or potential harm posed by the COVID-19 virus with having a surgery/procedure at this time versus the risk of delaying the surgery/procedure. It is not possible to know either the risk of delaying the surgery or procedure or chance of getting an infection with perfect accuracy, but a joint decision was made between the patient and the surgeon/proceduralist to proceed at this time with the scheduled surgery/procedure as indicated on the consent form. Supplemental Information Echocardiogram from 10/12/2020: Interpretation Summary Normal LV size. Left ventricular systolic function is normal. The estimated ejection fraction is 55 %. Mean aortic valve gradient 16 mmHg. Mild (1+) eccentric aortic valve insufficiency. Calculated aortic valve area (continuity equation) is 1.6 cm2. The left atrium is mildly enlarged. Stress test from 01/13/2021: Conclusion: Normal pharmacologic myocardial perfusion stress test. Preserved ejection fraction. Atrial fibrillation. Carotid duplex ultrasound from 01/13/2021: Interpretation Summary Mild (<50%) stenosis right extracranial internal carotid. Moderate (50-69%) stenosis left extracranial internal carotid. Flow within the vertebral arteries is antegrade bilaterally.
--- NOTE | 2021-04-14 12:10 | OP.PCM_ITS ---
Problems Associated Problem List Diagnoses (1) Persistent atrial fibrillation: (2) Sinus pause: Operative Report Date of Procedure: 04/14/21 Insertion also leadless VVI pacemaker via the right femoral vein. MICRA Diagnosis symptomatic bradycardia atrial fibrillation with a slow ventricular response rate with pauses. After informed consent was obtained and shared decision-making was undertaken the patient was brought to the cardiac catheterization lab in the right and left groins were prepped and draped in a sterile manner. Procedural antibiotics were administered. The patient was sedated with intravenous Versed and fentanyl in bolus aliquots. 1% subcutaneous Xylocaine was used for local analgesia. Femoral vein access was achieved via the Seldinger technique and confirmed by positioning of the guidewire into the superior vena cava under fluoroscopic guidance. Over the wire the Susannah dilator was used to dilate the femoral vein access to up to 20 Icelandic. The Susannah dilator was removed. After thorough flushing of the sheath with heparinized saline the 23 Icelandic delivery sheath was inserted and advanced over the wire under fluoroscopic guidance to the floor of the right atrium. A bolus of 5000 units of intravenous heparin was administered. The delivery catheter and leadless pacemaker were then brought into the field and was flushed thoroughly with heparinized saline used to express all air distally. Saline flush was used to flush the suture at the proximal end of the distal delivery sheath handle. Through the delivery sheath the delivery catheter and leadless pacemaker were advanced through the sheath to the floor of the right atrium under fluoroscopic guidance. The delivery catheter and pacemaker were advanced beyond the delivery sheath with appropriate deflection and manipulation the delivery catheter and pacemaker were advanced under fluoroscopic guidance in the OLIVAS projection across the tricuspid valve into the right ventricle. In the SETSWANA projection the delivery sheath was positioned in from a position with the right ventricular septal wall. Contrast injection confirmed firm contact with the right ventricular wall along the septum and excluded an apical position. The delivery sheath was then flushed with heparinized saline. The leadless pacemaker was then deployed in the delivery sheath was pulled back to an adequate position to complete the tug test. Under magnified view with cine imaging the tug test was completed and confirmed with no less than 2 of the 4 times noted to be in excellent contact of the myocardium and there was no dislodgment of the pacemaker. Testing was performed of the device and acceptable sensing impedance and capture thresholds were obtained. The testing of the pacemaker was repeated multiple times and confirmed to be adequate and stable. The delivery sheath was flushed again with heparinized saline one end of the suture was cut and the suture was slowly withdrawn from the delivery sheath. Once the suture was removed the pacemaker was tested again and confirmed appropriate and stable electrical parameters. There was no change in position of the device after the suture was removed. The delivery catheter and sheath were then removed from the femoral vein hemostasis was obtained with a surgical pursestring closure with use of a three- way stopcock and manual pressure for 10 minutes. The patient left the room in stable condition with the pacemaker programmed to appropriate parameters with a VVI of 50 bpm. R waves were noted to be 20 mV, pacing impedance of 770 ohms and pacing threshold of 0.63 V at 0.24 ms. Device information electrocoagulator and serial number were provided in the chart.
--- NOTE | 2021-04-15 07:54 | PCM.PN.CARD ---
Subjective Subjective Patient seen and evaluate. Appears to be doing well. No problems overnight. Groin site looks good. Objective Data Vital Signs: Weight: 192 lb Body Mass Index (BMI) 26.0 Lab / Micro Data Result Diagrams: 04/07/21 12:34 04/07/21 12:34 Cardiology Labs/Tests Rhythm: EKG: ECHO: Stress Test: Cardiac Cath: PCI: CT Surgery: Holter monitor: EPS: PPM: CXR: Chest CT Scan: Physical Exam Const alert, oriented x3 and no apparent distress General Appearance: cooperative HEENT hearing grossly normal bilaterally Head and Scalp: atraumatic Eyes EOMs intact bilaterally Neck General: normal visual inspection Chest inspection of chest normal and palpation of chest normal Resp normal respiratory effort Auscultation: clear to auscultation bilaterally Cardio regular rate, regular rhythm, S1 normal heart sound and S2 normal heart sound Jugular Venous Distention: JVD GI normal to inspection, nondistended, normoactive bowel sounds Extremity normal capillary refill and no pedal edema Peripheral Pulses: Yes pulses 2+ throughout and femoral pulses present Skin no rashes or lesions noted Neuro oriented x3 and CN's II-XII intact bilaterally Psych Appearance: grossly normal and appropriate Assessment & Plan Assessment/Plan (1) Persistent atrial fibrillation: PLAN: Patient is status post permanent pacemaker implantation with a Micra device. Appears to be doing well. Pacemaker interrogated today and is functioning well. Will discharge for outpatient follow-up.
--- NOTE | 2021-04-15 07:55 | PCM.DC ---
Discharge Instructions Diet Discharge Diet: No restrictions (as you feel able. No excessive stretching. No lifting your arm over your head (keep elbow below shoulder level) until seen for your pacemaker check. Do not lift your elbow away from your side until you are seen for your first visit. Keep the arm sling on if it helps remind you not to lift your arm.) Activity Additional Activity Instructions:: May shower or bathe on []. Do not scrub the incision or soak in the tub. Just wash with soap and let the water run over the incision. Gently pat dry with towel. Medications: Take your pain medication as directed. Refer to your discharge instruction sheet for a list of medications you are to take. Dressing / Incision Call your doctor if your incision/area has: Continuous Slow Oozing, Sudden Increased Bleeding, Increased Pain/ Swelling, Increased Redness, Foul Smelling Discharge and Swelling at the incision site Call your doctor if you observe: Fever of 101 or Higher, Shortness of breath, Dizziness, Fainting spells, Swelling in the ankles, Chest pain, Prolonged hiccupping and Increased palpitations (irregular heartbeat) Additional Dressing/Incision Instructions:: When dressing is removed, wash and dry incision. Keep covered with a light bandage if it is rubbing against your clothing. Do not cover the incision with an airtight bandage. Change the bandage daily. Do not remove steri strips. The strips will fall off on their own. Follow Up Care Please Follow Up With: Benito Diaz MD When: Call [phone] for follow up. Follow-up with pacemaker clinic on April 22 at 11 AM Test Results: Test results from this visit will be discussed in further detail at your follow-up appointment, if applicable. Discharge Plan Admission Attending Provider: Benito Diaz Primary Care Provider: Laura Shannon Discharge Orders/Prescriptions Prescriptions: No Action dutasteride 0.5 mg capsule 0.5 mg PO DAILY RF: 0 oxybutynin chloride 10 mg tablet extended release 24hr 10 mg PO DAILY RF: 0 nitroglycerin 0.4 MG tablet 0.4 mg SUBLINGUAL Q5M PRN (Reason: Chest Pain) RF: 0 aspirin 81 MG tablet,chewable 81 mg PO DAILY@0800 RF: 0 pravastatin 80 mg tablet 80 mg PO QHS Qty: 90 RF: 3 losartan 100 mg tablet 100 mg PO DAILY Qty: 90 RF: 3 Eliquis 5 mg tablet 5 mg PO BID Qty: 60 RF: 11 hydrochlorothiazide 25 mg tablet 25 mg PO DAILY Qty: 90 RF: 4 esomeprazole magnesium 40 mg capsule,delayed release(DR/EC) 40 mg PO DAILY Qty: 90 RF: 3
== END 2021-04-15 08:47 | disposition home or self-care (01) ==
LOC: CLSP 10:00
PROVIDERS: PCP Internal Medicine; Referring Provider Internal Medicine Cardiovascular Disease; Visit Provider Internal Medicine Cardiovascular Disease
DX: I48.19 Other persistent atrial fibrillation (principal); I25.10 Atherosclerotic heart disease of native coronary artery without angina pectoris; Z95.1 Presence of aortocoronary bypass graft; I10 Essential (primary) hypertension; E78.5 Hyperlipidemia, unspecified; I11.0 Hypertensive heart disease with heart failure; I50.32 Chronic diastolic (congestive) heart failure; E78.00 Pure hypercholesterolemia, unspecified; Z86.73 Personal history of transient ischemic attack (TIA), and cerebral infarction without residual deficits; R06.02 Shortness of breath; I65.22 Occlusion and stenosis of left carotid artery
CPT/HCPCS: 33274; 36415; 71046; 80048; 81001; 85027; 85610; 87635; 93005; 99152; 99153; C1894; C9803; J7040; Q9967; U0005; C1769; U0003

== ENCOUNTER → 2022-05-19 | Outpatient (CLI) | payer MEDICARE, OTHER, SELFPAY ==
--- NOTE | 2022-05-19 10:49 | VDLE_ITS ---
Reason For Study: LEG PAIN RIGHT LEFT CFV is compressible, spontaneous, competent GSV is normal. and demonstrates pulsatile venous flow. CFV is compressible, spontaneous, competent, Procedure and demonstrates pulsatile venous flow. This is a venous duplex using B-mode, color FV is compressible, spontaneous, phasic, flow and spectral Doppler. competent and demonstrates normal Exam performed in department. augmentation. The exam was diagnostic. POP V is compressible, spontaneous, phasic, A preliminary report was called and/or faxed competent and demonstrates normal to Dr. Goodwin office. augmentation. T/P Trunk is compressible. PTV is compressible. LT PerV is compressible. VL/Venous Duplex US, Unilateral Interpretation Summary Deep veins of the left lower extremity are patent and compressible segmentally. There is no evidence of left lower extremity deep vein thrombosis. Valvular competence appears intac t within the proximal deep venous system on the left . The left great saphenous vein appears patent a nd compressible segmentally. Pulsatile flow is noted in the deep venous system bilaterally, whi ch may be indicative of elevated central venous pressure (i.e. congestive heart failure, pulmonary h ypertension, etc.). Clinical correlation is advised. Ordering Physician: Cait Calderón Referring Physician: Laura Shannon M.D. Performed By: Gilels Paula RVT
== END | disposition home or self-care (01) ==
LOC: CVS 10:47
PROVIDERS: PCP Internal Medicine; Referring Provider Podiatrist; Visit Provider Podiatrist
DX: R60.0 Localized edema (principal)
CPT/HCPCS: 93971

== ENCOUNTER → 2023-06-25 | Outpatient (CLI) | payer OTHER, MEDICARE, SELFPAY ==
--- NOTE | 2023-06-25 10:57 | ECHOCS_ITS ---
Version 2 Reason For Study: CAD/ASHD Procedure This was a 2D Doppler, Color Flow transthoracic echocardiogram. The study was technically difficult. Contrast injection was performed. Exam performed in department. Left Ventricle Normal LV size. Mild concentric left ventricular hypertrophy. Left ventricular systolic function is normal. The estimated ejection fraction is 55 %. Stage 3 diastolic dysfunction. No regional wall motion abnormalities noted. Right Ventricle Normal RV size. Normal systolic function. Atria The left atrium is mildly enlarged. Normal right atrium. Mitral Valve Normal mitral valve. Trivial eccentric mitral valve insufficiency. Tricuspid Valve Normal tricuspid valve. Mild (1+) tricuspid valve insufficiency. Pulmonary artery systolic pressure is 37 mmHg. Aortic Valve Trisinus/trileaflet aortic valve. Mild focal aortic valve calcification. Peak aortic valve gradient 33 mmHg. Mean aortic valve gradient 19 mmHg. Mild to moderate aortic stenosis. Mild (1+) aortic valve insufficiency. Pulmonic Valve Normal pulmonic valve. Mild (1+) pulmonic valve insufficiency. Great Vessels Normal aortic root. The pulmonary artery is normal size. Normal inferior vena cava. Pericardium/Pleural No pericardial effusion. Medication 22 gauge I.V. with prn adaptor inserted into left arm. Diluted definity 2ml given slow IV push to enhance endocardial definition. MMode/2D Measurements & Calculations LVIDd: 4.2 cm IVSd: 1.2 cm LVOT diam: 2.0 cm LVIDs: 3.2 cm LVPWd: 1.2 cm RVDd: 4.2 cm FS: 23.9 % LVOT area: 3.0 cm2 Ao root diam: 3.1 cm LAV(MOD-bp): 81.4 ml LA A4 area: 26.6 cm2 LA dimension: 4.9 cm LAV(MOD-bp) Indexed: 39.0 ml/m2 LAV(MOD-sp2): 73.8 ml LAV(MOD-sp4): 81.9 ml TAPSE: 1.2 cm RA A4 area: 18.3 cm2 Time Measurements MV dec time: 0.21 sec Doppler Measurements & Calculations MV E max tacho: 87.9 cm/sec Lat Peak E' Tacho: 12.3 cm/sec Med Peak E' Tacho: 6.9 cm/sec MV A max tacho: 35.6 cm/sec E/E' lat: 7.2 E/E' med: 12.8 MV E/A: 2.5 MV V2 max: 89.7 cm/sec MV P1/2t max tacho: 90.6 cm/sec Ao V2 max: 284.9 cm/sec MV max P.2 mmHg MV P1/2t: 86.9 msec Ao max P.5 mmHg MV V2 mean: 49.1 cm/sec MV dec slope: 305.5 cm/sec2 Ao V2 mean: 206.3 cm/sec MV mean P.1 mmHg Ao mean P.1 mmHg MV V2 VTI: 29.3 cm MVA(P1/2t): 2.5 cm2 Ao V2 VTI: 71.8 cm MVA(VTI): 1.9 cm2 AV (velocity ratio): 0.26 ERIN(I,D): 0.78 cm2 ERIN(V,D): 0.84 cm2 AI max tacho: 408.1 cm/sec LV V1 max: 78.3 cm/sec SV(LVOT): 55.8 ml AI max P.9 mmHg LV V1 max P.5 mmHg AI dec slope: 258.1 cm/sec2 LV V1 mean P.1 mmHg AI P1/2t: 463.3 msec LV V1 mean: 48.7 cm/sec LV V1 VTI: 18.3 cm PA V2 max: 61.6 cm/sec PI dec slope: 130.2 cm/sec2 TR max tacho: 284.0 cm/sec TR max P.3 mmHg ECHO/Echo Complete W/ Contrast Interpretation Summary Normal LV size. Left ventricular systolic function is normal. The estimated ejection fraction is 55 %. Stage 3 diastolic dysfunction. Mean aortic valve gradient 19 mmHg. Mild focal aortic valve calcification. Mild to moderate aortic stenosis. Mild (1+) aortic valve insufficiency. Contrast injection was performed. Ordering Physician: Cheng Youssef Referring Physician: Laura Shannon M.D. Performed By: Jorge L Garcia RCS
--- NOTE | 2023-06-25 10:57 | CDU_ITS ---
Reason For Study: Carotid artery disease Rt. Velocities/BP Lt. Velocities/BP Prox CCA 62.6/6 cm/sec. Prox CCA 62.6/8.8 cm/sec. Mid CCA 61.9/6.9 cm/sec. Mid CCA 50.4/9.7 cm/sec. Dist CCA 47.5/6.9 cm/sec. Dist CCA 40.9/9.7 cm/sec. Prox ICA 67.4/11.3 cm/sec. Prox ICA 71.1/15.4 cm/sec. Mid ICA 89.4/15.7 cm/sec. Mid ICA 137.7/39.7 cm/sec. Dist ICA 67.5/11.6 cm/sec. Dist ICA 75.3/17.6 cm/sec. Rt. ICA/CCA = 0.96. Lt. ICA/CCA = 2.73. Prox ECA 128.4 cm/sec. Prox ECA 54.1 cm/sec. Rt. Vert. 36.9/5.5 cm/sec. Lt. Vert. 56.9/11.4 cm/sec. Right Extracranial There is intimal thickening but no significant atherosclerotic plaque noted in the right common carotid artery. There is heterogeneous, irregular atherosclerotic plaque noted in the right internal carotid artery. There is heterogeneous, smooth atherosclerotic plaque noted in the right external carotid artery. Antegrade flow is noted in the right vertebral artery. Left Extracranial There is homogeneous, smooth atherosclerotic plaque noted in the left common carotid artery. There is heterogeneous, irregular atherosclerotic plaque noted in the left internal carotid artery. There is heterogeneous, irregular atherosclerotic plaque noted in the left external carotid artery. Antegrade flow is noted in the left vertebral artery. Procedure Carotid Duplex [id number]. This is a Carotid Duplex examination using B-mode, color flow and specral Doppler. Definity contrast agent given for echocariogram just prior to examination. Exam performed in department. VL/Carotid Duplex Ultrasound Interpretation Summary Irregular plaque at the proximal right internal carotid artery with less than 5 0% stenosis Less than 50% stenosis right external carotid artery Irregular plaque at the proximal left internal carotid artery with 50 to 69% st enosis of the left internal carotid artery Less than 50% stenosis left external carotid artery Patent and antegrade vertebral arteries bilaterally No change from a previous examination of January 13, 2021 Ordering Physician: Cheng Youssef Referring Physician: Laura Shannon M.D. Performed By: Francisca Cabrera RVT
== END | disposition home or self-care (01) ==
LOC: CVS 10:56
PROVIDERS: PCP Internal Medicine; Referring Provider Nurse Practitioner Family; Visit Provider Nurse Practitioner Family
DX: I35.2 Nonrheumatic aortic (valve) stenosis with insufficiency (principal); I25.10 Atherosclerotic heart disease of native coronary artery without angina pectoris; I65.22 Occlusion and stenosis of left carotid artery
CPT/HCPCS: 93306; 93880; Q9957; A4216; C8929

== ENCOUNTER → 2024-07-28 | Outpatient (CLI) | payer MEDICARE, OTHER, SELFPAY ==
--- NOTE | 2024-07-28 12:50 | RAD_ITS ---
STUDY: X-RAY CHEST REASON FOR EXAM: Male, 84 years old. Shortness of breath, cough, edema TECHNIQUE: PA and lateral views of the chest. COMPARISON: 04/07/2021 FINDINGS: Status post median sternotomy. The lungs are clear and expanded. Small bilateral pleural effusions. Normal size heart. Normal mediastinum and susie. Normal visualized pulmonary arteries. Normal visualized aortic arch and descending thoracic aorta. Normal visualized thoracic spine. Normal visualized ribs, clavicles, and shoulders. There is no demonstrated abnormality of the visualized soft tissue structures of the upper abdomen. RAD/Chest PA and Lateral IMPRESSION: Small bilateral pleural effusions. Electronically Signed: Valentin Hammer MD at 12:[address] [facility] ,
[2024-07-28 12:52] LABS: Absolute Lymphocyte Count 1.33 X10^3/uL (0.83-4.51); Basophil# 0.04 X10^3/uL; Basophil% 0.8 % (0-1); Eosinophil# 0.18 X10^3/uL; Eosinophils% 3.5 % (0-5); Hematocrit 33.8 % (40-54); Hemoglobin 11.1 g/dL (13.0-16.5); Lymphocyte # 1.33 X10^3/ul (0.83-4.51); Lymphocyte % 25.9 % (19-41); Mean Corp Hgb Conc 32.8 g/dL (32-36); Mean Corpuscular Hgb 28.9 pg (27.0-32.0); Mean Platelet Vol. 9.6 fl (6.2-12.0); Monocyte# 0.57 X10^3/uL; Monocyte% 11.1 % (0-10); NRBC Flagged by Analyzer 0 % (0-5); Neutrophil % 58.5 % (47-70); Platelet Count 291 K/mm3 (150-450); RBC Distribution Width CV 14.4 % (11.6-14.6); RBC Distribution Width SD 46.4 fl (35.1-43.9); Red Blood Count 3.84 M/mm3 (4.6-6.2); White Blood Count 5.1 K/mm3 (4.4-11.0)
[2024-07-28 13:21] LABS: AST(SGOT) 30 U/L (15-37); Alanine Aminotransfer ALT/SGPT 24 U/L (16-61); Albumin, Serum 3.6 g/dL (3.2-5.0); Alkaline Phosphatase 87 U/L (45-117); Anion Gap 5 (5-15); BUN 18 mg/dL (7-18); BUN/Creat Ratio 19.3 RATIO (10-20); Calcium,Total 9.4 mg/dL (8.5-10.1); Chloride 107 mmol/L (98-107); Creatinine, Serum 0.93 mg/dL (0.70-1.30); EST Glomerular Filtration Rate 82 mL/min (>60); Est Glom Filt Rate - Afr Amer 99 mL/min (>60); Globulin 3.7 g/dL (2.2-4.2); Glucose 103 mg/dL (74-106); Potassium 3.1 mmol/L (3.5-5.1); Protein, Total 7.3 g/dL (6.4-8.2); Sodium Level 140 mmol/L (136-145)
[2024-07-28 18:26] LABS: BNP,B-Type NATRIURETIC PEPTIDE 628.1 pg/mL (0-100)
== END | disposition home or self-care (01) ==
PROVIDERS: PCP Internal Medicine; Referring Provider Nurse Practitioner Family; Visit Provider Nurse Practitioner Family
DX: R60.9 Edema, unspecified (principal); I50.32 Chronic diastolic (congestive) heart failure; R05.8 Other specified cough; R06.02 Shortness of breath; I25.10 Atherosclerotic heart disease of native coronary artery without angina pectoris; E78.00 Pure hypercholesterolemia, unspecified; Z79.01 Long term (current) use of anticoagulants
CPT/HCPCS: 36415; 71046; 80053; 83880; 85025

== ENCOUNTER → 2024-08-13 | Outpatient (CLI) | payer MEDICARE, OTHER, SELFPAY ==
--- NOTE | 2024-08-13 10:48 | RAD_ITS ---
STUDY: X-RAY CHEST REASON FOR EXAM: Male, 84 years old. SOB -- re-evaluate effusions TECHNIQUE: Frontal and lateral views of the chest. COMPARISON: 07/28/2024. FINDINGS: No definite change. Again seen are pulmonary opacities in both lung bases consistent with atelectasis or infiltrate with small pleural effusions. Normal heart size, previous CABG. Bones and soft tissues grossly negative. RAD/Chest PA and Lateral IMPRESSION: No definite change. Atelectasis or infiltrate in the lung bases with pleural effusions. Electronically Signed: Fredy Peraza MD at 21:02 EST ,
== END | disposition home or self-care (01) ==
LOC: RAD 10:47
PROVIDERS: PCP Internal Medicine; Referring Provider Nurse Practitioner Family; Visit Provider Nurse Practitioner Family
DX: I50.32 Chronic diastolic (congestive) heart failure (principal)
CPT/HCPCS: 71046

== ENCOUNTER → 2024-08-18 | Outpatient (CLI) | payer MEDICARE, OTHER, SELFPAY ==
[2024-08-18 16:14] LABS: AST(SGOT) 38 U/L (15-37); Alanine Aminotransfer ALT/SGPT 31 U/L (16-61); Alkaline Phosphatase 108 U/L (45-117); Anion Gap 7 (5-15); BUN 15 mg/dL (7-18); BUN/Creat Ratio 14.6 RATIO (10-20); Calcium,Total 9.7 mg/dL (8.5-10.1); Chloride 102 mmol/L (98-107); Creatinine, Serum 1.03 mg/dL (0.70-1.30); EST Glomerular Filtration Rate 73 mL/min (>60); Est Glom Filt Rate - Afr Amer 88 mL/min (>60); Glucose 127 mg/dL (74-106); Potassium 3.5 mmol/L (3.5-5.1); Sodium Level 139 mmol/L (136-145)
== END | disposition home or self-care (01) ==
PROVIDERS: PCP Internal Medicine; Referring Provider Nurse Practitioner Family; Visit Provider Nurse Practitioner Family
DX: I10 Essential (primary) hypertension (principal); E78.00 Pure hypercholesterolemia, unspecified
CPT/HCPCS: 36415; 80053

== ENCOUNTER → 2024-08-22 | Outpatient (CLI) | payer MEDICARE, OTHER, SELFPAY ==
--- NOTE | 2024-08-22 06:26 | ECHOCS_ITS ---
Reason For Study: CHF Procedure This was a 2D Doppler, Color Flow transthoracic echocardiogram. The study was technically difficult. Exam performed in department. Left Ventricle Normal LV size. Left ventricular systolic function is normal. The left ventricular ejection fraction is 60 %. No regional wall motion abnormalities noted. Right Ventricle Normal RV size. Pacer in RV apex. Normal systolic function. Atria The left atrium is mildly enlarged. Normal right atrium. Mitral Valve There is mild mitral annular calcification. Mild (1+) mitral valve insufficiency. Tricuspid Valve Normal tricuspid valve. Moderate (2+) tricuspid valve insufficiency. Pulmonary artery systolic pressure is 60 mmHg. Aortic Valve Trisinus/trileaflet aortic valve. Moderate focal aortic valve calcification. Peak aortic valve gradient 37 mmHg. Mean aortic valve gradient 24 mmHg. Moderate aortic stenosis. Mild (1+) aortic valve insufficiency. Pulmonic Valve Normal pulmonic valve. Great Vessels Normal aortic root. The pulmonary artery is normal size. Normal inferior vena cava. Pericardium/Pleural No pericardial effusion. Medication Diluted definity 3ml given slow IV push to enhance endocardial definition. MMode/2D Measurements & Calculations LVIDd: 4.6 cm IVSd: 1.1 cm LVOT diam: 2.0 cm LVIDs: 3.2 cm LVPWd: 0.98 cm RVDd: 3.6 cm FS: 29.8 % LVOT area: 3.1 cm2 Ao root diam: 3.2 cm LAV(MOD-bp): 63.9 ml LVAd ap4: 38.0 cm2 LAV(MOD-bp) Indexed: 30.9 ml/m2 LVLd ap4: 8.8 cm LAV(MOD-sp2): 62.1 ml EDV(MOD-sp4): 132.3 ml LAV(MOD-sp4): 65.7 ml EDV(sp4-el): 139.0 ml LVAs ap4: 22.2 cm2 LVLs ap4: 7.3 cm ESV(MOD-sp4): 57.2 ml ESV(sp4-el): 57.6 ml EF(MOD-sp4): 56.8 % EF(sp4-el): 58.6 % SV(MOD-sp4): 75.1 ml SV(sp4-el): 81.4 ml Aortic Valve Planimetry: 0.94 cm2 SI(MOD-sp4): 36.4 ml/m2 LA A4 area: 23.1 cm2 LA dimension(2D): 4.3 cm RA A4 area: 17.5 cm2 TAPSE: 1.7 cm Doppler Measurements & Calculations MV E max memo: 94.2 cm/sec Ao V2 max: 302.6 cm/sec AI max memo: 342.8 cm/sec Ao max P.6 mmHg AI max P.1 mmHg Ao V2 mean: 230.9 cm/sec Ao mean P.5 mmHg AI dec slope: 224.3 cm/sec2 Ao V2 VTI: 70.3 cm AI P1/2t: 447.6 msec AV (velocity ratio): 0.30 ERIN(I,D): 0.94 cm2 ERIN(V,D): 1.0 cm2 LV V1 max: 98.6 cm/sec SV(LVOT): 66.0 ml PA V2 max: 79.7 cm/sec LV V1 max P.9 mmHg LV V1 mean P.9 mmHg LV V1 mean: 65.4 cm/sec LV V1 VTI: 21.4 cm TR max memo: 372.4 cm/sec TR max P.5 mmHg ECHO/Echo Complete W/ Contrast Interpretation Summary Normal LV size. Left ventricular systolic function is normal. The left ventricular ejection fraction is 60 %. Moderate focal aortic valve calcification. Mean aortic valve gradient 24 mmHg. Mild (1+) aortic valve insufficiency. Compared to the previous the pulmonary pressures are higher. The aortic valve g radients are mildly increased. Moderate aortic stenosis. Ordering Physician: Cheng Youssef/Benito Diaz Referring Physician: FAVIO RODRIGUEZ Performed By: Anay Stuart RDCS
--- NOTE | 2024-08-25 11:26 | STRESSREP ---
Stress Test Report Pharmacologic myocardial perfusion stress test. 84-year-old man with a history of coronary artery disease and shortness of breath Resting EKG demonstrates atrial fibrillation with a rate of 71 bpm. Resting blood pressure is 144/80 mmHg. 0.4 mg of regadenoson was infused per usual protocol followed by rapid intravenous saline flush injection. Continuous EKG monitoring was performed. The maximum heart rate was 90 bpm which was 66% of max impacted heart rate the maximum workload was 1 metabolic equivalent. At rest there were no ST or T wave changes noted to suggest ischemia and at peak infusion nonspecific ST changes were noted which did not meet the criteria for ischemia. No clinical angina is noted. The final blood pressure was 146/80 mmHg. Myocardial perfusion protocol. 15 mCi of technetium 99m sestamibi was injected at rest. 0.4 mg of regadenoson was infused per usual protocol. At peak infusion 43.1 mCi of technetium 99m sestamibi was injected stress images were obtained stress and rest images were reconstructed and compared in the short axis vertical long and horizontal long axis. Gated images were also obtained. Perfusion SPECT analysis: Review of the stress images demonstrate normal uptake of tracer noted in all areas of the myocardium except for a portion in the mid anterior wall with reduced perfusion. The resting images similar demonstrated normal uptake of tracer noted in all areas of the myocardium. There is improvement in the mid anterior wall perfusion defect suggesting a mild amount of mid anterior ischemia present. Gated SPECT analysis: The gated ejection fraction is 54%. Conclusion: Abnormal pharmacologic myocardial perfusion stress test. Preserved ejection fraction. Mid anterior ischemia present
== END | disposition home or self-care (01) ==
LOC: CVS 06:26
PROVIDERS: PCP Internal Medicine; Referring Provider Nurse Practitioner Family; Visit Provider Nurse Practitioner Family
DX: I11.0 Hypertensive heart disease with heart failure (principal); I50.32 Chronic diastolic (congestive) heart failure; I48.19 Other persistent atrial fibrillation; I49.5 Sick sinus syndrome; Z95.1 Presence of aortocoronary bypass graft; E78.00 Pure hypercholesterolemia, unspecified
CPT/HCPCS: 78452; 93017; 93306; A9500; Q9957; A4216; C8929; J2785

== ENCOUNTER → 2024-09-18 | Outpatient (CLI) | payer MEDICARE, OTHER, SELFPAY ==
[2024-09-18 12:10] LABS: Anion Gap 6 (5-15); BUN 24 mg/dL (7-18); Calcium,Total 10.6 mg/dL (8.5-10.1); Chloride 102 mmol/L (98-107); EST Glomerular Filtration Rate 61 mL/min (>60); Est Glom Filt Rate - Afr Amer 74 mL/min (>60); Glucose 111 mg/dL (74-106); Potassium 5.1 mmol/L (3.5-5.1); Sodium Level 136 mmol/L (136-145)
== END | disposition home or self-care (01) ==
LOC: LAB 11:10
PROVIDERS: PCP Internal Medicine; Referring Provider Nurse Practitioner Family; Visit Provider Nurse Practitioner Family
DX: I50.32 Chronic diastolic (congestive) heart failure (principal); I48.19 Other persistent atrial fibrillation; Z95.1 Presence of aortocoronary bypass graft
CPT/HCPCS: 36415; 80048

== ENCOUNTER → 2025-02-03 | Outpatient (CLI) | payer MEDICARE, OTHER, SELFPAY ==
[2025-02-03 11:49] LABS: Anion Gap 11 (5-15); BUN 21 mg/dL (4-19); BUN/Creat Ratio 18.5 RATIO (10-20); Calcium,Total 9.4 mg/dL (7.6-11.0); Carbon Dioxide 22.4 mmol/L (21.0-32.0); Chloride 104 mmol/L (98-108); Glucose 139 mg/dL (70-99); Potassium 4.1 mmol/L (3.3-5.1)
== END | disposition home or self-care (01) ==
LOC: LAB 10:28
PROVIDERS: PCP Internal Medicine; Referring Provider Nurse Practitioner Family; Visit Provider Nurse Practitioner Family
DX: I11.0 Hypertensive heart disease with heart failure (principal); I50.32 Chronic diastolic (congestive) heart failure; I48.19 Other persistent atrial fibrillation; R60.9 Edema, unspecified; G45.9 Transient cerebral ischemic attack, unspecified
CPT/HCPCS: 36415; 80048

== ENCOUNTER → 2025-03-02 | Outpatient (CLI) | payer MEDICARE, OTHER, SELFPAY ==
[2025-03-02 12:05] LABS: Anion Gap 12 (5-15); BUN 16 mg/dL (4-19); BUN/Creat Ratio 14.5 RATIO (10-20); Calcium,Total 9.7 mg/dL (7.6-11.0); Carbon Dioxide 23.9 mmol/L (21.0-32.0); Chloride 103 mmol/L (98-108); Glucose 107 mg/dL (70-99); Potassium 4.3 mmol/L (3.3-5.1)
== END | disposition home or self-care (01) ==
LOC: LAB 11:08
PROVIDERS: PCP Internal Medicine; Referring Provider Nurse Practitioner Family; Visit Provider Nurse Practitioner Family
DX: R60.9 Edema, unspecified (principal); I50.32 Chronic diastolic (congestive) heart failure; I11.0 Hypertensive heart disease with heart failure; I25.10 Atherosclerotic heart disease of native coronary artery without angina pectoris; Z95.1 Presence of aortocoronary bypass graft; G45.9 Transient cerebral ischemic attack, unspecified; I65.22 Occlusion and stenosis of left carotid artery; E78.00 Pure hypercholesterolemia, unspecified
CPT/HCPCS: 36415; 80048

== ENCOUNTER → 2025-06-18 | Outpatient (CLI) | payer MEDICARE, OTHER, SELFPAY ==
[2025-06-18 16:27] LABS: Hematocrit 34.1 % (40-54); Hemoglobin 11.0 g/dL (13.0-16.5); Immature Granulocytes Count 0.010 X10^3/uL (0.0-0.0); Mean Corp Hgb Conc 32.3 g/dL (32-36); Mean Corpuscular Volume 85.7 fL (80-94); Mean Platelet Vol. 9.8 fl (6.2-12.0); NRBC Flagged by Analyzer 0 % (0-5); Platelet Count 324 K/mm3 (150-450); RBC Distribution Width CV 14.6 % (11.6-14.6); RBC Distribution Width SD 45.8 fl (35.1-43.9); Red Blood Count 3.98 M/mm3 (4.6-6.2); White Blood Count 6.2 K/mm3 (4.4-11.0)
[2025-06-18 17:26] LABS: Anion Gap 11 (5-15); BUN 15 mg/dL (4-19); BUN/Creat Ratio 14.5 RATIO (10-20); Calcium,Total 10.0 mg/dL (7.6-11.0); Carbon Dioxide 26.2 mmol/L (21.0-32.0); Chloride 103 mmol/L (98-108); Glucose 121 mg/dL (70-99); Potassium 4.6 mmol/L (3.3-5.1); Pro- Brain NATRIURETIC PEPTIDE 1793 pg/mL (<=1800)
== END | disposition home or self-care (01) ==
LOC: LAB 16:11
PROVIDERS: PCP Internal Medicine; Referring Provider Nurse Practitioner Family; Visit Provider Nurse Practitioner Family
DX: I25.10 Atherosclerotic heart disease of native coronary artery without angina pectoris (principal); I50.32 Chronic diastolic (congestive) heart failure; I11.0 Hypertensive heart disease with heart failure; I48.19 Other persistent atrial fibrillation; I49.5 Sick sinus syndrome; I35.2 Nonrheumatic aortic (valve) stenosis with insufficiency; Z95.1 Presence of aortocoronary bypass graft; E78.00 Pure hypercholesterolemia, unspecified; R06.00 Dyspnea, unspecified
CPT/HCPCS: 36415; 80048; 83880; 84443; 85025

== ENCOUNTER 2025-07-05 16:39 | Emergency (ER) | payer MEDICARE, OTHER, SELFPAY ==
[2025-07-05 16:40] VITALS: BP 135/67; PULSE 67; RESP 17; TEMP 36.7; O2SAT 98; BMI 26.9
--- NOTE | 2025-07-05 17:21 | CT_ITS ---
PROCEDURE: BRAIN/HEAD WITHOUT CONTRAST 07/05/2025 REASON FOR EXAM: DIZZINESS, ON ELIQUIS TECHNIQUE: Procedure Code: CTBR Modality: CT Procedure: BRAIN/HEAD WITHOUT CONTRAST Coronal and Sagittal reconstruction series were provided. One or more dose reduction techniques were used (e.g., Automated exposure control, adjustment of the mA and/or kV according to patient size, use of iterative reconstruction technique. RADIATION DOSE SUMMARY: DLP: 830 mGycm COMPARISON: None FINDINGS: There is no acute infarct, intracranial hemorrhage, or mass effect. There is no hydrocephalus or significant midline shift. There is mild chronic microvascular ischemic changes and mild parenchymal volume loss. No acute, depressed calvarial fractures. No large scalp hematomas. The paranasal sinuses are clear. Bilateral lens surgeries. CT/Brain/Head without Contrast IMPRESSION: No acute intracranial process. Reading Location: [id number]
--- NOTE | 2025-07-05 17:21 | EKG12_ITS ---
Test Reason : DIZZY Blood Pressure : */* mmHG Vent. Rate : 63 BPM Atrial Rate : * BPM P-R Int : * ms QRS Dur : 92 ms QT Int : 448 ms P-R-T Axes : * 45 112 degrees QTcB Int : 458 ms Atrial fibrillation possible Septal infarct , age undetermined Abnormal ECG non specific st/t wave changes Confirmed by Reg Coffman ([id number]), assignment desk editor JOSESITO PIERSON ([id number]) on 07/07/2025 8:33:35 AM Referred By: Confirmed By: Reg Coffman
--- NOTE | 2025-07-05 17:22 | EX.ED.DYSGE1 ---
HPI History of Present Illness Chief Complaint: Dizziness Detail of Chief Complaint: Lightheadedness Informant: patient Narrative Narrative: Patient presents the emergency department complaint of feeling lightheaded since about noon today. He states that he started isosorbide 10 days ago and the first day he took it he felt a little bit nauseated and lightheaded like he feels today. Has not had an issue with it since that time. Patient denies chest pain or shortness of breath out of the ordinary as he is always a little bit short of breath. Patient does state that he frequently feels lightheaded when he tries to stand up from a seated position. Patient has history of prior CABG. Denies chest pain. Does have a mild headache which is somewhat unusual. He is on Eliquis for history of A-fib. Denies urinary symptoms or recent illness. 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 Dizziness and giddiness Pulmonary embolism Essential (primary) hypertension Atherosclerosis of coronary artery of [place] heart without angina pectoris Shortness of breath TIA (transient ischemic attack) Home Medications ?Medication ?Instructions ?Recorded ?Last Taken ?Type aspirin 81 mg chewable tablet 81 mg PO DAILY@0800 04/18/14 07/05/25 History nitroglycerin 0.4 mg sublingual 0.4 mg sublingual Q5M PRN Chest 04/18/14 Unknown History tablet Pain dutasteride 0.5 mg capsule 0.5 mg PO DAILY 04/16/18 07/05/25 History pravastatin 80 mg tablet 80 mg PO QHS #90 tabs 02/20/20 07/04/25 Rx cholecalciferol (vitamin D3) 25 25 mcg PO DAILY 01/05/22 07/05/25 History mcg (1,000 unit) capsule finerenone 10 mg tablet (Kerendia) 10 mg PO QDAY 07/29/24 07/05/25 History cyanocobalamin (vitamin B-12) 1,000 mcg PO QDAY 08/13/24 07/05/25 History 1,000 mcg tablet dapagliflozin propanediol 10 mg 10 mg PO DAILY #30 tabs 08/13/24 07/05/25 Rx tablet (Farxiga) losartan 100 mg tablet 100 mg PO QDAY #90 tabs 11/17/24 07/05/25 Rx apixaban 5 mg tablet (Eliquis) 5 mg PO BID #60 tabs 02/16/25 07/05/25 Rx potassium chloride 20 mEq 20 meq PO QDAY #90 tabs 02/23/25 07/05/25 Rx tablet,extended release esomeprazole magnesium 40 mg 40 mg PO DAILY #90 caps 03/11/25 07/05/25 Rx capsule,delayed release furosemide 40 mg tablet (Lasix) 40 mg PO DAILY 06/18/25 07/05/25 History isosorbide mononitrate 30 mg 30 mg PO DAILY #30 tabs 06/18/25 07/05/25 Rx tablet,extended release 24 hr Allergy/AdvReac Type Severity Reaction Status Date / Time No Known Allergies Allergy Verified 07/05/25 16:43 Family History Father CAD (coronary artery disease) Mother CAD (coronary artery disease) Brother CAD (coronary artery disease) Surgical History History of placement of leadless cardiac pacemaker History of skin graft History of hip replacement 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 H/O coronary artery bypass surgery (06/2001) Social History Smoking Status: Never smoker alcohol intake: never substance use type: does not use caffeine: Yes Type: coffee Number of servings: 2 ROS ROS ED Review of Systems ROS Unobtainable: other Constitutional Constitutional ED: Reports lethargy; Denies chills, fever(s), sweats or weight loss Eyes Eyes: Denies blurry vision, change in vision or diplopia ENT ENT ED: Denies rhinorrhea or sore throat Cardiovascular Cardiovascular: Denies chest pain, orthopnea or racing heartbeat Respiratory/Chest Respiratory/Chest: Reports dyspnea; Denies cough, dyspnea on exertion, orthopnea or sputum Gastrointestinal Gastrointestinal: Reports nausea; Denies abdominal pain, diarrhea or vomiting Genitourinary Genitourinary ED: Denies dysuria, hematuria or urinary frequency Musculoskeletal Musculoskeletal: Denies arthralgias, back pain, myalgias or neck pain Integumentary Denies abscess, Abrasions or rash Neurologic Neurologic: Reports other Details: Lightheaded ; Denies headache(s) or weakness Psychiatric Psychiatric: Denies anxiety, depression or suicidal thoughts Endocrine Endocrinology: Denies polydipsia, polyphagia or polyuria Hematologic/Lymphatic Hematologic/Lymphatic: Denies easy bleeding, easy bruising or lymphadenopathy Allergic/Immunologic Allergic/Immunologic ED: Denies mouth swelling, tongue swelling or urticaria EXAM Physical Exam Const Vital Signs: 07/05/25 16:40 07/05/25 17:48 07/05/25 18:39 Temperature 98.1 F Temperature Source Oral Pulse Rate 67 65 Pulse Rate [Lying] 84 Pulse Rate [Sitting (for 1 minute prior to obtaining)] 78 Pulse Rate [Standing (for 1 minute prior to obtaining)] 85 Respiratory Rate 17 18 Blood Pressure 135/67 H 119/63 Blood Pressure [Lying] 126/66 H Blood Pressure [Sitting (for 1 minute prior to obtaining)] 143/64 H Blood Pressure [Standing (for 1 minute prior to obtaining)] 143/72 H Blood Pressure Mean 89 81 Blood Pressure Mean [Lying] 86 Blood Pressure Mean [Sitting (for 1 minute prior to obtaining)] 90 Blood Pressure Mean [Standing (for 1 minute prior to obtaining)] 95 Pulse Ox 98 98 Oxygen Delivery Method Room Air 07/05/25 20:18 Temperature Temperature Source Pulse Rate 78 Pulse Rate [Lying] Pulse Rate [Sitting (for 1 minute prior to obtaining)] Pulse Rate [Standing (for 1 minute prior to obtaining)] Respiratory Rate 14 Blood Pressure Blood Pressure [Lying] Blood Pressure [Sitting (for 1 minute prior to obtaining)] Blood Pressure [Standing (for 1 minute prior to obtaining)] Blood Pressure Mean Blood Pressure Mean [Lying] Blood Pressure Mean [Sitting (for 1 minute prior to obtaining)] Blood Pressure Mean [Standing (for 1 minute prior to obtaining)] Pulse Ox 97 Oxygen Delivery Method Positive well nourished and well developed General Appearance ED: well developed and NAD HEENT Reports TM's clear and moist mucous membranes normocephalic and atraumatic; Negative for trauma or tenderness Tympanic Membrane ED: Yes TM's clear Eyes PERRL and EOMs intact bilaterally General Eye ED: Negative for pale conjunctiva or scleral icterus Neck no lymphadenopathy, supple and no JVD General: Negative for tenderness Chest Wall inspection of chest normal and palpation of chest normal Chest: Negative for tenderness Resp normal respiratory effort and clear to auscultation bilaterally Effort and Inspection: Negative for respiratory distress or pain with movement Auscultation: Negative for rhonchi, wheezes or diminished lung sounds Cardio regular rate, regular rhythm, S1 normal heart sound, S2 normal heart sound and no murmurs Peripheral Pulses: pulses 2+ throughout GI normal to inspection, nondistended, normoactive bowel sounds, soft to palpation, non-tender, non-distended and no masses Back/Spine no CVA tenderness and no thoracic nor lumbar tenderness Extremity normal to inspection General Extremety ED: Negative for edema General Extremity: Negative for edema Neuro oriented x3, CN's II-XII intact bilaterally, no sensory deficits noted and gait normal Sensorium / Orientation: awake, alert, oriented to person, oriented to place and oriented to time Motor Exam: strength 5/5 throughout and strength abnormal Psych mental status grossly normal Skin no rashes or lesions noted and no wounds MDM MDM MDM Narrative Medical decision making narrative: Patient presents to the emergency department with complaint of lightheadedness. He was in the department with his who was being seen after a fall. While sitting he started feeling lightheaded. He states that he has been lightheaded since around noon. Had a similar episode 10 days ago when he for started taking isosorbide. Denies recent illness. Denies chest pain. Clinically looks well. Patient had an EKG on arrival that showed atrial fibrillation with ventricular rate of 63 bpm with old septal infarct. CBC with differential shows a white count 4.8 with hemoglobin 10.2 and platelet count of 295. Chemistries unremarkable. First troponin was slightly elevated at 36 and do not have any recent values to compare. I did repeat a 2-hour delta troponin which was normal at 21. He is not having any cardiac symptoms currently. He does follow-up with cardiology and he is scheduled to have an echo to evaluate his aortic stenosis coming up. Clinically he looks well. I feel he safe for discharge. He is advised to follow-up with cardiology within the next 3 to 5 days. To return if syncope, chest pain, or if condition should worsen anyway. Etiology of his lightheadedness unclear. He had negative orthostatic vital signs here. It is possible symptoms may be related to his isosorbide or he may have had a vagal episode while in the emergency department with his . Lab Data Attestation: I reviewed the patient's lab results. Labs: Laboratory Results - last 24 hr 07/05/25 07/05/25 16:50 19:22 WBC 4.8 RBC 3.72 L Hgb 10.2 L Hct 31.9 L MCV 85.8 MCH 27.4 MCHC 32.0 RDW Std Deviation 45.6 H RDW Coeff of Marii 14.6 Plt Count 295 MPV 10.4 Immature Gran % (Auto) 0.200 Neut % (Auto) 55.8 Lymph % (Auto) 27.3 [place] % (Auto) 11.4 H Eos % (Auto) 4.5 Baso % (Auto) 0.8 Absolute Neuts (auto) 2.7 Absolute Lymphs (auto) 1.32 Nucleated RBC % 0 Sodium 137 Potassium 3.8 Chloride 100 Carbon Dioxide 22.1 Anion Gap 14 BUN 22 H Creatinine 1.12 Estim Creat Clear Calc 50.42 Est GFR (MDRD) Non-Af 64 BUN/Creatinine Ratio 19.7 Glucose 163 H Calcium 9.3 Troponin T High Sens 36 H Troponin T Hi Sens 2 Hr 21 Radiography Diagnostic Testing: Clinical Impression(s) from Imaging Studies Brain CT 07/05/25 17:21 IMPRESSION: No acute intracranial process. Reading Location: [facility] EKG Initial EKG: Attestation: I personally reviewed and interpreted this EKG as follows: Comments: Atrial fibrillation with ventricular rate of 63 bpm with old septal infarct Discharge Plan Triage Chief Complaint: Dizziness ED Provider: Олег Baldwin Dx/Rx/DC Orders Clinical Impression: Dizziness Instructions: ED Dizziness, Uncertain Cause Prescriptions: No Action dutasteride 0.5 mg capsule 0.5 mg PO DAILY cholecalciferol (vitamin D3) 25 mcg (1,000 unit) capsule 25 mcg PO DAILY cyanocobalamin (vitamin B-12) 1,000 mcg tablet 1,000 mcg PO QDAY dapagliflozin propanediol [Farxiga] 10 mg tablet 10 mg PO DAILY Qty: 30 11RF furosemide [Lasix] 40 mg tablet 40 mg PO DAILY isosorbide mononitrate 30 mg tablet extended release 24 hr 30 mg PO DAILY Qty: 30 11RF nitroglycerin 0.4 MG tablet 0.4 mg SUBLINGUAL Q5M PRN (Reason: Chest Pain) aspirin 81 MG tablet,chewable 81 mg PO DAILY@0800 pravastatin 80 mg tablet 80 mg PO QHS Qty: 90 3RF Kerendia 10 mg tablet 10 mg PO QDAY losartan 100 mg tablet 100 mg PO QDAY Qty: 90 3RF Eliquis 5 mg tablet 5 mg PO BID Qty: 60 11RF potassium chloride 20 mEq tablet extended release 20 meq PO QDAY Qty: 90 3RF esomeprazole magnesium 40 mg capsule,delayed release(DR/EC) 40 mg PO DAILY Qty: 90 3RF Primary Care Provider: Laura Shannon Referrals: Laura Shannon DO [Primary Care Provider, Internal Medicine] - 3-5 Days Print Language: Italian Disposition Disposition: Home, Self Care
[2025-07-05 17:36] LABS: Hematocrit 31.9 % (40-54); Hemoglobin 10.2 g/dL (13.0-16.5); Immature Granulocytes Count 0.010 X10^3/uL (0.0-0.0); Mean Corp Hgb Conc 32.0 g/dL (32-36); Mean Corpuscular Volume 85.8 fL (80-94); Mean Platelet Vol. 10.4 fl (6.2-12.0); NRBC Flagged by Analyzer 0 % (0-5); Platelet Count 295 K/mm3 (150-450); RBC Distribution Width CV 14.6 % (11.6-14.6); RBC Distribution Width SD 45.6 fl (35.1-43.9); Red Blood Count 3.72 M/mm3 (4.6-6.2); White Blood Count 4.8 K/mm3 (4.4-11.0)
--- OUTSIDE RECORDS SUMMARY | 2025-07-05 17:42 | XMS RPT_ITS | CCD ---
Author Organization [facility] Care Team Providers Care Manager User Interface Name Role Phone Kika Escalante Unavailable Kika Escalante Unavailable Laura Rodriguez Unavailable Doroteo Pulido Unavailable Atul Hammer Unavailable Mandi Rosales Unavailable David Lee Unavailable David Lee Unavailable Mya Braga Unavailable Unavailable Manchariki, Rosie Unavailable Unavailable Unavailable Unavailable Melody Escalanteelvia Brown Unavailable Laura Rodriguez Unavailable Doroteo Pulido Unavailable Atul Hammer Unavailable Mandi Rosales Unavailable David Lee Unavailable David Lee Unavailable Mya Braga Unavailable Unavailable Manchak, Rosie Unavailable Unavailable Unavailable Unavailable Gravius, Melissa Unavailable Unavailable Messenger, Mya Unavailable Unavailable Manchak, Rosie Unavailable Unavailable Baylee Merlos Unavailable Unavailable Slarb, Aliza Unavailable Unavailable Jorge A, Shaina Unavailable Unavailable Laura Rodriguez DO Unavailable [phone] Doroteo Pulido MD Unavailable Dr. Atul Hammer MD Unavailable Signs Mandi GUNN Unavailable Dr. David Lee Unavailable Jesus , Dr. Hernandez Unavailable Jorge A GROUND WORKER, Shaina Unavailable Unavailabl e Louise GROUND WORKER, Rosie Unavailable Unavailable Gravius GROUND WORKER, Melissa Unavailable Unavailable Maria Luz RN, Mya Unavailable Unavailable Unavailable Unavailable MD Sebastián, Kingsley Oliveira Unavailable Dileep GROUND WORKER, Shaina Unavailable Unavailable Slarb TALENT ACQUISITION SPECIALIST, Aliza Unavailable Unavailable Ashok GUNN, Doroteo Cochran Unavailable Laura Rodriguez DO Unavailable Dr. Laura Rodriguez Primary Care Provider [phone] Dr. Benito Diaz Attending Provider [phone] Benito Diaz Referring Provider 1([phone] Laura Rodriguez Referring Provider 1([facility])[phone] [facility] DISTRICT OPERATIONS MANAGER, DISTRICT OPERATIONS MANAGER-C Arnie Simms Attending Provider Lamar RYAN, CONNOR Oliveira Attending Provider Dr. Karthikeyan Spencer Attending Provider Dr. Laura Rodriguez DO Primary Care Provider [facility] DISTRICT OPERATIONS MANAGER-CArnie Attending Provider Domonique DISTRICT OPERATIONS MANAGER-CArnie Referring Provider [phone])[phone] Laura Rodriguez DO Referring Provider 1([facility] )-[phone] Dr. Benito Diaz MD Attending Provider [phone] Dr. Laura Rodriguez DO Primary Care Provider Dr. Benito Diaz MD Referring Provider 1([facility])[phone] [facility] DISTRICT OPERATIONS MANAGER-CArnie Attending Provider [facility] DISTRICT OPERATIONS MANAGER-CArnie Referring Provider Dr. Laura Rodriguez DO Referring Provider Laura Rodriguez Primary Care Unavailable [facility] DISTRICT OPERATIONS MANAGERArnie Attending Unavailable [facility] DISTRICT OPERATIONS MANAGERArnie Referring Unavailable Laura Rodriguez Primary Care Unavailable Shiva, Laura Referring Unavailable [facility] DISTRICT OPERATIONS MANAGER, Arnie H Attending Unavailable Shiva, Laura Referring Unavailable [facility] DISTRICT OPERATIONS MANAGER, Arnie H Attending Unavailable Shiva, Laura Primary Care Unavailable Shiva, Laura Primary Care Unavailable Emily, Benito Referring Unavailable Emily, Benito Attending Unavailable [facility] DISTRICT OPERATIONS MANAGER, Arnie H Attending Unavailable [facility] DISTRICT OPERATIONS MANAGER, Arnie H Referring Unavailable Shiva, Laura Primary Care Unavailable [facility] DISTRICT OPERATIONS MANAGER, Arnie H Attending Unavailable [facility] DISTRICT OPERATIONS MANAGER, Arnie H Referring Unavailable Shiva, Laura Primary Care Unavailable [facility] DISTRICT OPERATIONS MANAGER, Arnie H Attending Unavailable Shiva, Laura Primary Care Unavailable [facility] DISTRICT OPERATIONS MANAGER, Arnie H Referring Unavailable Emily, [place] Referring Unavailable Emily, [place] Attending Unavailable Shiva, Laura Primary Care Unavailable Shiva, Laura Primary Care Unavailable Emily, [place] Attending Unavailable Emily, [place] Referring Unavailable Shiva, Laura Referring Unavailable [facility] DISTRICT OPERATIONS MANAGER, Arnie H Attending Unavailable Shiva, Laura Primary Care Unavailable Shiva, Laura Primary Care Unavailable Emily, [place] Attending Unavailable Shiva, Laura Primary Care Unavailable Emily, Benito Attending Unavailable Shiva, Laura Referring Unavailable [facility] DISTRICT OPERATIONS MANAGER, Arnie H Attending Unavailable Shiva, Laura Primary Care Unavailable Shiva, Laura Primary Care Unavailable Emily, [place] Attending Unavailable [facility] DISTRICT OPERATIONS MANAGER, Arnie H Consulting Unavailable [facility] DISTRICT OPERATIONS MANAGER, Arnie H Referring Unavailable Shiva, Laura Primary Care Unavailable Emily, [place] Attending Unavailable Emily, Benito Referring Unavailable Shiva, Laura Primary Care Unavailable Emily, Benito Referring Unavailable Emily, [place] Attending Unavailable Shiva, Laura Primary Care Unavailable Emily, Benito Referring Unavailable Emily, Benito Attending Unavailable Shiva, Laura Primary Care Unavailable Shiva, Laura Referring Unavailable Emily, Benito Attending Unavailable Shiva, Laura Primary Care Unavailable Shiva, Laura Referring Unavailable [facility] DISTRICT OPERATIONS MANAGER, Arnie H Attending Unavailable Shiva, Laura Referring Unavailable [facility] DISTRICT OPERATIONS MANAGER, Arnie H Attending Unavailable Shiva, Laura Primary Care Unavailable Shiva, Laura Primary Care Unavailable [facility] DISTRICT OPERATIONS MANAGER, Arnie H Attending Unavailable [facility] DISTRICT OPERATIONS MANAGER, Arnie H Referring Unavailable [facility] DISTRICT OPERATIONS MANAGER, Arnie H Attending Unavailable [facility] DISTRICT OPERATIONS MANAGER, Arnie H Referring Unavailable Shiva, Laura Primary Care Unavailable Shiva, Laura Primary Care Unavailable [facility] DISTRICT OPERATIONS MANAGER, Arnie H Attending Unavailable [facility] DISTRICT OPERATIONS MANAGER, Arnie H Referring Unavailable Allergies Allergy Classification Reported Allergen(s) Allergy Type Date of Onset Reaction(s) Facility NEGATED: Highlighted row has been ruled out!Unclassified (1 source) Allergy to substance (finding) 4 [facility]; [facility] Work Phone: NEGATED: Highlighted row has been ruled out!Unclassified (1 source) Allergy to drug (finding) [facility]; [facility] Work Phone: NEGATED: Highlighted row has been ruled out!Unclassified (1 source) Allergy to substance (finding) 4 [facility]; [facility] Work Phone: NEGATED: Highlighted row has been ruled out!Unclassified (1 source) Allergy to drug (finding) [facility]; [facility] Work Phone: NEGATED: Highlighted row has been ruled out!Unclassified (1 source) Allergy to substance (finding) 4 [facility]; [facility] Work Phone: NEGATED: Highlighted row has been ruled out!Unclassified (1 source) Allergy to drug (finding) [facility]; [facility] Work Phone: NEGATED: Highlighted row has been ruled out! (1 source) allergy to substance 4 [facility] Work Phone: NEGATED: Highlighted row has been ruled out! (1 source) drug allergy [facility] Work Phone: NEGATED: Highlighted row has been ruled out! (1 source) Allergy to substance (finding) 4 [facility]; [facility] Work Phone: NEGATED: Highlighted row has been ruled out! (1 source) Allergy to drug (finding) [facility]; [facility] Work Phone: NEGATED: Highlighted row has been ruled out! (1 source) Allergy to substance (finding) 4 [facility] Work Phone: NEGATED: Highlighted row has been ruled out! (1 source) Allergy to drug (finding) [facility] Work Phone: NEGATED: Highlighted row has been ruled out! (1 source) Allergy to substance (finding) 4 [facility]; [facility] Work Phone: NEGATED: Highlighted row has been ruled out! (1 source) Allergy to drug (finding) [facility]; [facility] Work Phone: NEGATED: Highlighted row has been ruled out! (1 source) Allergy to substance (finding) 4 [facility]; [facility] Work Phone: NEGATED: Highlighted row has been ruled out! (1 source) Allergy to drug (finding) [facility]; [facility] Work Phone: NEGATED: Highlighted row has been ruled out! (1 source) Allergy to substance (finding) 4 [facility]; [facility] Work Phone: NEGATED: Highlighted row has been ruled out! (1 source) Allergy to drug (finding) [facility]; [facility] Work Phone: NEGATED: Highlighted row has been ruled out! (1 source) Allergy to substance (finding) 4 [facility]; [facility] Work Phone: NEGATED: Highlighted row has been ruled out! (1 source) Allergy to drug (finding) [facility]; [facility] Work Phone: NEGATED: Highlighted row has been ruled out! (1 source) Allergy to substance (finding) 4 [facility]; [facility] Work Phone: NEGATED: Highlighted row has been ruled out! (1 source) Allergy to drug (finding) [facility]; [facility] Work Phone: NEGATED: Highlighted row has been ruled out! (1 source) Allergy to substance (finding) 4 [facility]; [facility] Work Phone: NEGATED: Highlighted row has been ruled out! (1 source) Allergy to drug (finding) [facility]; [facility] Work Phone: Medications Current Medications Medication Drug Class(es) Dates Sig (Normalized) Sig (Original) aspirin 81 mg chewable tablet (20 sources) Platelet Aggregation Inhibitor, Nonsteroidal Anti-inflammatory Drug Start: 04-18-2014 take 1 tablet by mouth once daily Aspirin 81 MG tablet,chewable Active 81 mg PO DAILY@0800 April 18, 2014 12:00am Start: 02-10-2011 take 1 tablet by iván th once daily ASPIRIN 81 MG TABS One tablet by mouth daily ASPIRIN [id number] Sandra Oliveira Jernigan Start: 02-10-2011 take 1 tablet by iván th once daily ASPIRIN 81 MG TABS One tablet by mouth daily ASPIRIN [id number] Sandra Oliveira [place] Start: 02-10-2011 take 1 tablet by iván th once daily ASPIRIN EC 81 MG TBEC One tablet by mouth daily ASPIRIN [id number] Jac White cholecalciferol 0.025 mg oral capsule (7 sources) Vitamin D Start: 01-05-2022 take 1 capsule by mouth once daily Cholecalciferol (Vitamin D3) 25 mcg (1,000 unit) capsule Active 25 ug PO DAILY January 05, 2022 12:00am dapagliflozin 10 mg oral tablet (6 sources) Sodium-Glucose Cotransporter 2 Inhibitor Start: 08-13-2024 take 1 tablet by mouth once daily Dapagliflozin Propanediol (Farxiga) 10 mg tablet Active 10 mg PO DAILY 30 August 13, 2024 1:00am Finerenone (6 sources) Start: 07-29-2024 take 1 tablet by mouth once daily Finerenone (Kerendia) 10 mg tablet Active 10 mg PO daily July 29, 2024 1:00am furosemide 40 mg oral tablet (20 sources) Loop Diuretic Start: 02-19-2025 take 1 tablet by mouth twice daily Furosemide (Lasix) 40 mg tablet Active 40 mg PO TWICE A DAY 90 February 19, 2025 11:56am Start: 02-03-2025 End: 02-19-2025 take 1 tablet by mouth once daily Furosemide (Lasix) 40 mg tablet Discontinued 40 mg PO daily 90 3 February 03, 2025 1:08pm February 19, 2025 11:57am Start: 09-15-2024 End: 07-08-2025 take 1 tablet by mouth twice daily Furosemide (Lasix) 40 mg tablet Discontinued 40 mg PO TWICE A DAY 180 January 29, 2025 10:42am February 03, 2025 1:10pm Start: 08-29-2024 End: 08-29-2024 take 1 tablet by mouth once Furosemide (Lasix) 40 mg t ablet Discontinued 40 mg PO ONCE August 29, 2024 10:58am August 29, 2024 11:01am Start: 08-13-2024 End: 09-15-2024 take 2 tablets by mouth twice daily Furosemide (Lasix) 40 mg tablet Discontinued 80 mg PO TWICE A DAY August 29, 2024 11:01am September 15, 2024 2:47pm Start: 08-11-2024 End: 08-13-2024 take 1 tablet by mouth twice daily Furosemide (Lasix) 40 mg tablet Discontinued 40 mg PO TWICE A DAY 180 August 11, 2024 12:50pm August 13, 2024 11:22am Start: 07-17-2024 End: 08-11-2024 take 1 tablet by mouth once daily in the morning Furosemide (Lasix) 40 mg tablet Discontinued 40 mg PO EVERY MORNING 90 3 July 17, 2024 1:00am August 11, 2024 12:51pm Start: 10-15-2018 End: 10-15-2018 take 1 tablet by mouth twice daily Furosemide (Lasix) 40 mg tablet Discontinued 40 mg PO TWICE A DAY October 15, 2018 11:00am October 15, 2018 11:30am edema Start: 05-07-2018 End: 02-27-2019 take 1 tablet by mouth once daily Furosemide (Lasix) 40 mg tablet Discontinued 40 mg PO DAILY 90 3 February 24, 2019 11:05am February 27, 2019 2:20pm edema Start: 06-10-2012 End: 06-13-2012 Start: 06-10-2012 End: 06-13-2012 take 10 tablets by mouth twice daily LASIX, 20MG (Oral Tablet) 1 Tablet bid for 3 days Quantity: 10 {Tablet} Refills: 0 Ordered: 10-Jun-2012 Olivia Sullivan LPN Start : 10-Jun-2012 End : 13-Jun-2012 Inactive Comments: will take bid x 3 days but dispensing 10 pills Comment on above: will take bid x 3 da ys but dispensing 10 pills nitroglycerin 0.4 mg sublingual tablet (20 sources) Nitrate Vasodilator Start: 04-18-2014 End: 07-01-2020 Nitroglycerin 0.4 MG tablet Active 0.4 mg SL Q5M as needed for Chest Pain April 18, 2014 12:00am Start: 04-18-2014 Nitroglycerin Active 0.4 MG SL Q5M April 17, 2014 11:00pm Start: 02-10-2011 NITROGLYCERIN 0.4 MG/HR PT24 1 tablet under tongue every 5 min up to 3 X NITROGLYCERIN [id number] Lakshmi Raman PA-C Start: 02-10-2011 NITROSTAT 0.4 MG SUBL 1 tablet under tongue every 5 min up to 3 X NITROGLYCERIN [id number] Benito Diaz MD End: 07-01-2020 take 1 tablet under the tongue once as needed NITROQUICK, 0.4MG (Sublingual Tablet Sublingual) 1 tab prn for cp for 0 days Refills: 0 Ordered: 01-Jul-2020 Aliza Mcgregor LPN End : 01-Jul-2020 Discontinued Comments: This order discontinued per [facility]. Comment on above: Mail order. This order discontin ued per [facility]. potassium chloride 20 meq extended release oral tablet (20 sources) Start: 02-19-2025 End: 02-23-2025 take 1 tablet by mouth once daily Potassium Chloride 20 mEq tablet extended release Active 20 meq PO daily 90 February 23, 2025 1:16pm Start: 09-15-2024 End: 02-03-2025 take 1 tablet by mouth once daily Potassium Chloride 20 mEq tablet extended release Discontinued 20 meq PO daily 90 January 29, 2025 10:42am February 03, 2025 1:09pm Start: 08-18-2024 End: 09-15-2024 take 1 tablet by mouth twice daily Potassium Chloride 20 mEq tablet extended release Discontinued 20 meq PO TWICE A DAY 180 August 18, 2024 5:24pm September 15, 2024 3:17pm Start: 08-11-2024 End: 08-18-2024 take 1 tablet by mouth once daily at mealtime Potassium Chloride 20 mEq tablet extended release Discontinued 20 meq PO .COMPLEX 90 August 11, 2024 1:00am August 18, 2024 5:24pm 20 mEq orally daily with food: YES OK TO TAKE WITH KERENDIA; Start: 10-31-2006 End: 06-17-2012 Start: 10-31-2006 End: 06-17-2012 take 2 tablets by mouth once daily K-DUR, 20MEQ (PO Tablet Extended Release) 2 Tablet ER qd for 0 days Quantity: 180 {Tablet_ER} Refills: 3 Ordered: 31-Oct-2006 JO Mcnulty LPN Start : 31-Oct-2006 End : 17-Jun-2012 Discontinued Comments: This order discontinued per [facility]. Start: 10-31-2006 End: 06-17-2012 take 2 tablets by mouth once daily K-DUR, 20MEQ (PO Tablet Extended Release) 2 Tablet ER qd for 0 days Quantity: 180 {Tablet_ER} Refills: 3 Ordered: 31-Oct-2006 JO Mcnulty LPN Start : 31-Oct-2006 End : 17-Jun-2012 Discontinued Comments: This order discontinued per [facility]. Start: 10-09-2006 End: 10-31-2006 Start: 10-09-2006 End: 10-31-2006 take 2 tablets by mouth once daily POT BICARB-POT CHLORIDE, 25MEQ (Oral Tablet Effervescent) 2 (two) Tablet Effer qd for 0 days Quantity: 180 {Tablet_Effer} Refills: 3 Ordered: 09-Oct-2006 Orquidea Meza Start : 09-Oct-2006 End : 31-Oct-2006 Inactive Comment on above: This order discontin ued per [facility]. vitamin b12 1 mg oral tablet (6 sources) Vitamin B12 Start: 5 take 1 tablet by mouth once daily Cyanocobalamin (Vitamin B-12) 1,000 mcg tablet Active 1000 ug PO daily August 13, 2024 1:00am Completed/Discontinued Medications Medication Drug Class(es) Dates Sig (Normalized) Sig (Original) acetaminophen 750 mg / HYDROcodone bitartrate 7.5 mg oral tablet (20 sources) Opioid Agonist Start: 06-10-2012 End: 07-20-2014 Start: 06-10-2012 End: 07-20-2014 take 7.5-750 mg by mouth every eight hours as needed VICODIN ES, 7.5-750MG (Oral Tablet) 1 Tablet q8hrs prn pain for 0 days Quantity: 30 {Tablet} Refills: 0 Ordered: 23-Aug-2012 Yany Weber Start : 10-Jun-2012 End : 20-Jul-2014 Discontinued Comments: This order discontinued per [facility]. Start: 06-10-2012 End: 07-20-2014 take 1 tablet by mouth every eight hours as needed for pain VICODIN ES, 7.5-750MG (Oral Tablet) 1 Tablet q8hrs prn pain for 0 days Quantity: 30 {Tablet} Refills: 0 Ordered: 23-Aug-2012 Yany Weber Start : 10-Jun-2012 End : 20-Jul-2014 Discontinued Comments: This order discontinued per [facility]. Comment on above: This order discontin ued per [facility]. [id number] 200 actuat albuter ol 0.09 mg/actuat metered dose inhaler (20 sources) beta2-Adrenergic Agonist Start: 07-04-2013 End: 07-01-2020 Start: 07-04-2013 End: 07-01-2020 ProAir HFA 108 (90 Base) MCG /ACT Inhalation Aerosol Solution 2 (two) Aerosol Soln Aerosol Soln puffs qid prn for 0 days Quantity: 1 {Aerosol_Soln} Refills: 1 Ordered: 01-Jul-2020 Aliza Mcgregor LPN Start : 04-Jul-2013 End : 01-Jul-2020 Inactive 24 hr alfuzosin hydrochloride 10 mg extended release oral tablet (7 sources) alpha-Adrenergic Loly Start: 09-06-2017 End: 02-27-2019 take 1 tablet by mouth once daily Alfuzosin 10 mg tablet extended release 24 hr Discontinued 10 mg PO daily September 06, 2017 1:00am February 27, 2019 1:42pm amLODIPine 5 mg oral tablet (20 sources) Dihydropyridine Calcium Channel Loly Start: 09-29-2013 End: 08-06-2017 take 1 tablet by mouth once daily Amlodipine 5 MG tablet Discontinued 5 mg PO DAILY April 18, 2014 12:00am August 06, 2017 4:22pm Comment on above: Mail order. amoxicillin 875 mg / clavulanate 125 mg oral tablet (14 sources) Penicillin-class Antibacterial Start: 06-18-2023 End: 07-17-2024 Amoxicillin-Pot Clavulanate 875-125 mg tablet Discontinued 1 {tbl} PO TWICE A DAY 14 0 June 18, 2023 1:00am July 17, 2024 12:12pm Start: 06-18-2023 take 1 tablet by iván th twice daily Amoxicillin-Pot Clavulanate Active 1 TABLET PO TWICE A DAY 14 June 18, 2023 12:00am Start: 03-28-2022 End: 04-07-2022 Amoxicillin-Pot Clavulanate 875-125 mg tablet Discontinued 1 {tbl} PO Q12H 20 10 March 28, 2022 12:00am April 06, 2022 12:00am April 07, 2022 12:04am Acute sinusitis, unspecified Start: 03-28-2022 End: 04-07-2022 take 1 tablet by mouth every twelve hours Amoxicillin-Pot Clavulanate Discontinued 1 TABLET PO Q12H 20 10 March 27, 2022 11:00pm April 06, 2022 11:04pm apixaban 5 mg oral tablet (20 sources) Factor Xa Inhibitor Start: 02-07-2021 End: 02-16-2025 take 1 tablet by mouth twice daily Apixaban (Eliquis) 5 mg tablet Discontinued 5 mg PO TWICE A DAY 60 February 25, 2024 12:07pm February 16, 2025 7:56am atorvastatin 40 mg oral tablet (20 sources) HMG-CoA Reductase Inhibitor Start: 06-29-2009 End: 06-29-2009 azithromycin 250 mg oral tablet (20 sources) Macrolide Antimicrobial Start: 04-07-2024 End: 07-17-2024 Azithromycin 250 mg tablet Discontinued 0 PO .COMPLEX 6 0 April 07, 2024 12:00am July 17, 2024 12:12pm For 250 mg dose pack: take 500 mg today (day 1), then 250 mg for 4 days (days 2-5) PO Start: 12-08-2013 End: 12-26-2013 Start: 12-08-2013 End: 12-26-2013 AZITHROMYCIN, 250MG (Oral Ta blet) 2 (two) Tablet today then 1 qd for 4 days for 0 days Quantity: 6 {Tablet} Refills: 0 Ordered: 26-Dec-2013 Rosie Gil CMA Start : 08-Dec-2013 End : 26-Dec-2013 Inactive Start: 12-08-2013 End: 12-26-2013 benzonatate 200 mg oral capsule (6 sources) Non-narcotic Antitussive Start: 04-07-2024 End: 08-13-2024 take 1 capsule by mouth three times daily as needed for cough Benzonatate 200 mg capsule Discontinued 200 mg PO THREE TIMES A DAY as needed for cough 20 0 April 07, 2024 12:00am August 13, 2024 10:36am chlorthalidone 25 mg oral tablet (20 sources) Thiazide-like Diuretic Start: 04-18-2014 End: 08-06-2017 Chlorthalidone 50 MG tablet Discontinued 12.5 mg PO DAILY April 18, 2014 12:00am August 06, 2017 4:21pm Start: 04-18-2014 End: 08-06-2017 take 12.5 mg by mouth once daily Chlorthalidone Discontinued 12.5 MG PO DAILY April 17, 2014 11:00pm August 06, 2017 3:21pm Start: 08-01-2013 End: 04-16-2018 take 1 tablet by mouth once daily Chlorthalidone 25 mg tablet Discontinued 25 mg PO daily 90 3 August 06, 2017 1:00am April 16, 2018 2:30pm Comment on above: Mail order. ciprofloxacin 2 mg/ml / hydrocortisone 10 mg/ml otic suspension (20 sources) Corticosteroid, Quinolone Antimicrobial Start: 06-06-2013 End: 06-16-2013 Start: 06-06-2013 End: 06-16-2013 CIPRO HC, 0.2-1% (Otic Suspe nsion) 3 (three) gtt bid for 10 days Quantity: 1 {bottle} Refills: 0 Ordered: 06-Jun-2013 Rosa Box DO Start : 06-Jun-2013 End : 16-Jun-2013 Inactive desloratadine 5 mg oral tablet (20 sources) Histamine-1 Receptor Antagonist Start: 01-10-2008 End: 06-17-2012 donepezil hydrochloride 10 mg oral tablet (20 sources) Start: 07-01-2020 doxycycline hyclate 100 mg oral capsule (20 sources) Tetracycline-class Drug Start: 08-14-2024 End: 08-21-2024 take 1 capsule by mouth twice daily Doxycycline Hyclate 100 mg capsule Discontinued 100 mg PO TWICE A DAY 14 7 0 August 14, 2024 1:00am August 20, 2024 1:00am August 21, 2024 1:09am Start: 08-27-2023 End: 07-17-2024 take 1 capsule by mouth twice daily Doxycycline Monohydrate 100 mg capsule Discontinued 100 mg PO TWICE A DAY 14 August 27, 2023 1:00am July 17, 2024 12:12pm Start: 11-28-2021 End: 11-29-2021 take 2 capsules by mouth once Doxycycline Hyclate 100 mg capsule Discontinued 200 mg PO ONCE 2 November 28, 2021 12:00am November 28, 2021 12:00am November 29, 2021 12:04am Tick bite of abdominal wall Insect bite (nonvenomous) of abdominal wall, initial encounter Start: 11-28-2021 End: 11-29-2021 take 200 mg by mouth once Doxycycline Hyclate Disconti nued 200 MG PO ONCE 2 November 27, 2021 11:00pm November 28, 2021 11:04pm Start: 08-23-2012 End: 08-23-2012 dutasteride 0.5 mg oral capsule (20 sources) 5-alpha Reductase Inhibitor Start: 01-25-2017 End: 04-16-2018 take 1 capsule by mouth once daily Dutasteride 0.5 mg capsule Discontinued 0.5 mg PO daily 90 0 August 06, 2017 1:00am April 16, 2018 2:13pm esomeprazole 40 mg delayed release oral capsule (20 sources) Proton Pump Inhibitor Start: 01-25-2017 Start: 02-10-2011 End: 03-11-2025 take 1 capsule by mouth once daily Esomeprazole Magnesium 40 mg capsule,delayed release(DR/EC) Discontinued 40 mg PO DAILY 90 3 March 17, 2024 8:25am March 11, 2025 8:10am Start: 02-10-2011 take 1 tablet by iván th once daily as needed NEXIUM 40 MG CPDR One tablet by mouth daily PRN ESOMEPRAZOLE MAGNESIUM [id number] Lakshmi Raman PA-C Comment on above: Mail order. hydroCHLOROthiazide 25 mg oral tablet (20 sources) Thiazide Diuretic Start: 021 End: 024 take 1 tablet by mouth once daily Hydrochlorothiazide 25 mg tablet Discontinued 25 mg PO DAILY 90 4 June 11, 2024 9:08am July 17, 2024 12:16pm Start: 01-14-2021 End: 01-28-2021 take 2 tablets by mouth once daily Hydrochlorothiazide 12.5 mg tablet Discontinued 25 mg PO DAILY 60 4 January 14, 2021 1:48pm January 28, 2021 12:19pm Start: 01-14-2021 End: 01-28-2021 take 25 mg by mouth once daily Hydrochlorothiazide Discontinued 25 MG PO DAILY 60 January 14, 2021 12:48pm January 28, 2021 11:19am Start: 03-16-2020 End: 01-14-2021 take 1 tablet by mouth once daily Hydrochlorothiazide 12.5 mg tablet Discontinued 12.5 mg PO DAILY 60 4 May 17, 2020 9:04am January 14, 2021 1:49pm Start: 07-17-2019 End: 03-16-2020 take 1 tablet by mouth once daily Hydrochlorothiazide 25 mg tablet Discontinued 25 mg PO DAILY 90 4 February 26, 2020 2:27pm March 16, 2020 10:48am levoFLOXacin 500 mg oral tablet (20 sources) Quinolone Antimicrobial Start: 09-04-2019 End: 07-01-2020 lisinopril 20 mg oral tablet (20 sources) Angiotensin Converting Enzyme Inhibitor Start: 02-10-2011 End: 12-25-2014 Comment on above: Mail order. losartan potassium 100 mg oral tablet (20 sources) Angiotensin 2 Receptor Loly Start: 07-17-2019 End: 11-17-2024 take 1 tablet by mouth once daily Losartan 100 mg tablet Discontinued 0 .ROUTE .COMPLEX 90 3 September 21, 2023 9:02am August 13, 2024 10:37am TAKE ONE TABLET BY MOUTH DAILY Start: 07-04-2016 take 0.5 tablet by m outh once daily Losartan Potassium 50 MG Oral Tablet 1/2 Tablet qd for 90 days Quantity: 45 {Tablet} Refills: 3 Ordered: 04-Jul-2016 Rasta Mccullough MD Start : 04-Jul-2016 Active Comments: Mail order. Start: 07-08-2013 End: 10-15-2018 take 1 tablet by mouth once daily Losartan 25 mg tablet Discontinued 25 mg PO DAILY 90 3 August 16, 2018 12:54pm October 15, 2018 11:31am Start: 07-08-2013 End: 07-17-2019 take 1 tablet by mouth once daily Losartan 50 mg tablet Discontinued 50 mg PO DAILY 28 06February 18, 2019 6:27pm July 17, 2019 12:02pm Start: 07-08-2013 take 1 tablet by iván th once daily LOSARTAN POTASSIUM 100 MG TABS One tablet by mouth daily LOSARTAN POTASSIUM [id number] Benito Diaz MD Start: 07-04-2013 End: 07-04-2013 Comment on above: Mail order. methylPREDNISolone 4 mg oral tablet (6 sources) Corticosteroid Start: 2023 End: 2023 take 1 tablet by mouth once Methylprednisolone (Medrol (Mohamud)) 4 mg tablets,dose pack Discontinued 4 mg PO per package directions 21 October 25, 2023 12:00am October 30, 2023 12:00am October 31, 2023 12:05am 24 hr metoprolol succinate 25 mg extended release oral tablet (20 sources) beta-Adrenergic Loly Start: 2020 End: 2020 take 1 tablet by mouth once daily Metoprolol Succinate 25 mg tablet extended release 24 hr Discontinued 25 mg PO DAILY 28 06February 07, 2021 12:00am February 11, 2021 3:43pm Start: 09-27-2012 End: 07-20-2014 Start: 02-10-2011 End: 07-20-2014 take 0.5 tablet by mouth twice daily METOPROLOL TARTRATE, 50MG (Oral Tablet) 1/2 Tablet bid for 0 days Quantity: 90 {Tablet} Refills: 3 Ordered: 20-Jul-2014 Yany Weber Start : 27-Sep-2012 End : 20-Jul-2014 Discontinued MULTIPLE VITAMIN (4 sources) Start: 02-10-2011 take 1 tablet by mouth once daily MULTIVITAMINS TABS One tablet by mouth daily MULTIPLE VITAMIN [id number] Sandra Jernigan Start: 02-10-2011 End: 02-01-2016 take 1 tablet by mouth once daily MULTIVITAMINS TABS One tablet by mouth daily MULTIPLE VITAMIN [id number] Benito Diaz MD MULTIPLE VITAMIN (2 sources) Start: 02-10-2011 take 1 tablet by mouth once daily MULTIVITAMINS TABS One tablet by mouth daily MULTIPLE VITAMIN [id number] Sandra Jernigan Start: 02-10-2011 End: 02-01-2016 take 1 tablet by mouth once daily MULTIVITAMINS TABS One tablet by mouth daily MULTIPLE VITAMIN [id number] Benito Diaz MD Hdbxoavaccro-Zn-Vmix-Mineral s (1 source) Start: 04-18-2014 End: 09-06-2017 Vrebrktfcceb-Ng-Afuc-Mineral s Discontinued 1 EACH PO DAILY April 17, 2014 11:00pm September 06, 2017 1:28pm Lmmmocimdpjr-Ne-Spcq-Mineral s 1 EACH tablet (6 sources) Start: 04-18-2014 End: 09-06-2017 take 1 tablet by mouth once daily Txjpgnfztmmi-Rh-Mril-Minerals 1 EACH tablet Discontinued 1 NMA PO DAILY April 18, 2014 12:00am September 06, 2017 2:28pm 24 hr niacin 1000 mg extende d release oral tablet (20 sources) Nicotin ic Acid Start: 02-10-2011 End: 07-20-2014 Start: 02-10-2011 End: 02-13-2014 take 1 tablet by mouth once daily NIASPAN 1000 MG CR-TABS One tablet by mouth daily NIACIN (ANTIHYPERLIPIDEMIC) [id number] Benito Diaz MD Comment on above: Mail order. 24 hr oxybutynin chloride 10 mg extended release oral tablet (20 sources) Cholinergic Muscarinic Antagonist Start: 1 End: 2 take 1 tablet by mouth once daily Oxybutynin Chloride 10 mg tablet extended release 24hr Discontinued 10 mg PO DAILY January 06, 2021 12:00am January 05, 2022 2:43pm Start: 09-06-2017 End: 01-06-2021 take 1 tablet by mouth once daily Oxybutynin Chloride 5 mg tablet extended release 24 hr Discontinued 5 mg PO daily September 06, 2017 1:00am January 06, 2021 2:34pm Oxybutynin Chloride ER 10 MG Oral Tablet Extended Release 24 Hour (10 sources) take 1 tablet by mouth every twenty-four hours Oxybutynin Chloride ER 10 MG Oral Tablet Extended Release 24 Hour daily (10 MG) Active pravastatin sodium 80 mg oral tablet (20 sources) HMG-CoA Reductase Inhibitor Start: 3 Start: 11-21-2021 Start: 08-24-2021 Start: 08-24-2021 Start: 05-30-2021 Start: 02-01-2021 Start: 02-01-2021 Start: 12-31-2020 Start: 12-31-2020 Start: 12-03-2020 Start: 12-03-2020 Start: 09-29-2013 End: 02-20-2020 take 1 tablet by mouth at bedtime Pravastatin 80 MG tablet Discontinued 80 mg PO AT BEDTIME April 18, 2014 12:00am July 17, 2019 11:46am Comment on above: Mail order. rosuvastatin calcium 20 mg oral tablet (20 sources) HMG-CoA Reductase Inhibitor Start: 08-30-19 End: 06-17-20 12 simvastatin 80 mg oral tablet (20 sources) HMG-CoA Reductase Inhibitor Start: 02-11-20 11 End: 09-28-19 13 spironolactone 25 mg oral tablet (20 sources) Aldosterone Antagonist Start: 06-30-20 End: 07-17-20 19 take 1 tablet by mouth once daily Spironolactone 25 mg tablet Discontinued 25 mg PO DAILY 90 3 June 30, 2019 5:27pm July 17, 2019 11:46am Start: 11-21-2018 End: 02-27-2019 take 1 tablet by mouth once daily Spironolactone 25 mg tablet Discontinued 25 mg PO DAILY 30 6 November 21, 2018 12:00am February 27, 2019 1:43pm tamsulosin hydrochloride 0.4 mg oral capsule (20 sources) alpha-Adrenergic Loly Start: 02-18-2015 End: 09-28-2015 take 1 tablet by mouth once daily TAMSULOSIN HCL 0.4 MG CAPS One tablet by mouth daily TAMSULOSIN HCL [id number] Benito Diaz MD vancomycin 1000 mg injection (20 sources) Glycopeptide Antibacterial Start: 07-12-2012 End: 07-12-2012 Comment on above: IV Therapy initiated 22G, 1 inchSite: intact R lower armTolerated: flushed well 5cc NSno redness or swelling, no s/s infiltrationMegan VANCOMYCIN HCL, 1000MG (Intravenous Solution Reconstituted) (6 sources) Start: 07-12-2012 End: 07-12-2012 VANCOMYCIN HCL, 1000MG (Intravenous Solution Reconstituted) 1 For Solution IV for 0 days Quantity: 1 {For_Solution} Refills: 0 Ordered: 12-Jul-2012 Rosa Box DO Start : 12-Jul-2012 End : 12-Jul-2012 Discontinued Comments: IV Therapy [id number], 1 inchSite: intact R lower armTolerated: flushed well 5cc NSno redness or swelling, no s/s infiltrationMegan Comment on above: IV Therapy initiated 22G, 1 inchSite: intact R lower armTolerated: flushed well 5cc NSno redness or swelling, no s/s infiltrationMegan Problems Active Problems Problem Classification Problem Date Documented Da te Episodic/Chronic Cardiac dysrhythmias (20 sources) Sinus bradycardia; Translations: [Sick sinus syndrome] Onset: 4 11-11-2013 Chronic Cardiac dysrhythmias (7 sources) Sinus bradycardia; Translations: [Bradycardia, unspecified] 05-07-2018 Episodic Chronic obstructive pulmonary disease and bronchiectasis (20 sources) Bronchitis; Translations: [Bronchitis] Resolved: 0 09-04-2019 Episodic Conditions associated with dizziness or vertigo (20 sources) Dizziness and giddiness; Translations: [Dizziness] Onset: 4 11-11-2013 Episodic Comment on above: call withupdate 2 wd eeks if not better see cardio rec otc flonase and time - if persists [facility] do [facility] , or refer to ENT- he said give it more time for now - with barometric pressures and chg in weather Conditions associated with dizziness or vertigo (20 sources) Conditions associated with dizziness or vertigo Conduction disorders (17 sources) Sinus node dysfunction; Translations: [Other specified heart block] Onset: 4 09-19-2022 Chronic Congestive heart failure; nonhypertensive (15 sources) Chronic diastolic heart failure; Translations: [Chronic diastolic (congestive) heart failure] Onset: 5 07-16-2019 Chronic Coronary atherosclerosis and other heart disease (20 sources) Coronary arteriosclerosis; Translations: [Coronary atherosclerosis] Onset: 1 02-10-2011 Chronic Comment on above: CABG 2001DR Emily ev anju 6 mnthsLast OV 02/11 Coronary atherosclerosis and other heart disease (20 sources) Coronary atherosclerosis and other heart disease Deficiency and other anemia (20 sources) Anemia; Translations: [Anemia, unspecified] Resolved: 3 01-25-2017 Episodic Diabetes mellitus with complications (20 sources) Diabetes mellitus with complications Diabetes mellitus without complication (20 sources) Type 2 diabetes mellitus without complication; Translations: [Diabetes mellitus type II, controlled, with no complications (Renamed from Controlled type 2 diabetes mellitus without complication)] 11-29-2017 Chronic Diabetes mellitus without complication (20 sources) Impaired fasting glucose; Translations: [Impaired fasting glycaemia] Resolved: 8 11-29-2017 Episodic Disorders of lipid metabolism (20 sources) Hyperlipidemia; Translations: [Other hyperlipidemia] Onset: 1 02-10-2011 Chronic Esophageal disorders (20 sources) Gastroesophageal reflux disease; Translations: [Gastro-esophageal reflux disease without esophagitis] 11-29-2017 Chronic Esophageal disorders (5 sources) Esophageal disorders Essential hypertension (20 sources) Benign hypertension; Translations: [Hypertensive disorder] Onset: 1 02-10-2011 Chronic Comment on above: BP at home: 160/50s, not sure Fever of unknown origin (20 sources) Fever with chills; Translations: [Fever and chills] Resolved: 0 09-04-2019 Episodic Genitourinary symptoms and ill-defined conditions (20 sources) Nocturia; Translations: [Nocturia] 11-29-2017 Episodic Comment on above: see carla for foll ow up nocturia( X2)DOnt drink after 6 PMUA : WNLstarted flomax by demetrius , did not helpNo urgency , dysuriaNocturia X2, frequency every 1/ hour Gout and other crystal arthropathies (6 sources) 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; Translations: [Gout, unspecified] 10-25-2023 Chronic Heart valve disorders (20 sources) Aortic incompetence, non-rheumatic ; Translations: [Nonrheumatic aortic (valve) insufficiency] Onset: 4 07-16-2019 Chronic Hyperplasia of prostate (20 sources) Hypertrophy (benign) of prostate without urinary obstruction and other lower urinary tract symptom (LUTS); Translations: [HYPERTROPHY (BENIGN) OF PROSTATE WITHOUT URINARY OBSTRUCTION] 11-29-2017 Chronic Comment on above: chronic stable-jessika nue present regimen Immunizations and screening for infectious disease (20 sources) Need for prophylactic vaccination and inoculation against influenza; Translations: [Pneumococcal vaccination given] Resolved: 5 07-15-2020 Episodic Influenza (20 sources) Influenza Malaise and fatigue (20 sources) Exhaustion; Translations: [Exhaustion] 11-30-2017 Episodic Comment on above: offered to do lab to day to screen -- but for 2weeks i do think low yield-- enc to give it few weeks bc i think its from being sedentary all-winter and 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 -- if persists rto to do work up or if other symptoms develop like cp etc rto sooner or ER Occlusion or stenosis of precerebral arteries (20 sources) Carotid artery stenosis; Translations: [Occlusion and stenosis of bilateral carotid arteries] Onset: 7 08-01-2016 Chronic Comment on above: pt has dopplers sche duled 12/14 Open wounds of extremities (6 sources) Tear of skin; Translations: [Laceration without foreign body of left forearm, initial encounter] 08-27-2023 Episodic Other aftercare (6 sources) Long-term current use of anticoagulant; Translations: [residential (current) use of anticoagulants] 07-28-2024 Episodic Other and unspecified benign neoplasm (20 sources) History of polyp of colon; Translations: [History of colon polyps] 11-29-2017 Episodic Comment on above: scope 2014 due in 20 20 Other circulatory disease (20 sources) Low blood pressure; Translations: [Hypotension] Resolved: 5 01-25-2017 Episodic Other connective tissue disease (20 sources) Hematoma; Translations: [Hematoma] 11-29-2017 Episodic Comment on above: improvingleft leg se condary to accident Other ear and sense organ disorders (19 sources) Infective otitis externa; Translations: [Infective otitis externa, unspecified laterality] Resolved: 4 06-23-2015 Chronic Other gastrointestinal disorders (20 sources) Diarrhea; Translations: [Diarrhea] Resolved: 3 01-25-2017 Episodic Comment on above: improving Other lower respiratory disease (20 sources) Dyspnea; Translations: [Shortness of breath] Onset: 1 02-10-2011 Episodic Other lower respiratory disease (20 sources) Chronic cough; Translations: [CHRONIC COUGH] 11-29-2017 Episodic Comment on above: try zyrtec- call not better Other lower respiratory disease (20 sources) Dyspnea on exertion; Translations: [SOB (shortness of breath) on exertion] Resolved: 8 11-29-2017 Episodic Other lower respiratory disease (20 sources) Cough; Translations: [Cough] Resolved: 0 09-04-2019 Episodic Other lower respiratory disease (6 sources) Dry cough; Translations: [Nonproductive cough] 07-28-2024 Episodic Other male genital disorders (1 source) Impotence of organic origin; Translations: [Erectile dysfunction] 11-29-2017 Chronic Other male genital disorders (14 sources) Impotence; Translations: [Erectile dysfunction] 11-29-2017 Chronic Other male genital disorders (17 sources) Male erectile dysfunction, unspecified; Translations: [Erectile dysfunction] 09-04-2019 Chronic Other nutritional; endocrine; and metabolic disorders (20 sources) Body mass index 30+ - obesity; Translations: [BMI 30.0-30.9,adult] Resolved: 8 11-29-2017 Chronic Other nutritional; endocrine; and metabolic disorders (20 sources) Body mass index 25-29 - overweight; Translations: [BMI 28.0-28.9,adult] Resolved: 0 11-29-2017 Chronic Other nutritional; endocrine; and metabolic disorders (20 sources) Weight gain; Translations: [Weight gain] Resolved: 3 01-25-2017 Episodic Other nutritional; endocrine; and metabolic disorders (20 sources) Body mass index 25-29 - overweight; Translations: [BMI 28.0-28.9,adult] Resolved: 0 07-15-2020 Episodic Other nutritional; endocrine; and metabolic disorders (20 sources) Overweight in adulthood with body mass index of 25 or more but less than 30; Translations: [BMI 28.0-28.9,adult] Resolved: 0 06-13-2021 Episodic Other screening for suspected conditions (not mental disorders or infectious disease) (19 sources) Imaging of thorax abnormal; Translations: [Abnormal chest x-ray] Resolved: 8 11-29-2017 Chronic Other skin disorders (15 sources) Skin lesion; Translations: [Skin lesion] 06-20-2021 Episodic Other upper respiratory infections (20 sources) Upper respiratory infection; Translations: [Upper Respiratory Infection (Renamed from Infection of the upper respiratory tract)] Resolved: 5 12-25-2014 Episodic Peripheral and visceral atherosclerosis (20 sources) Peripheral vascular disease; Translations: [Peripheral vascular disease] 11-29-2017 Chronic Pulmonary heart disease (7 sources) Pulmonary arterial hypertension; Translations: [Secondary pulmonary arterial hypertension] 05-07-2018 Chronic Residual codes; unclassified (20 sources) Needs influenza immunization; Translations: [Need for prophylactic vaccination and inoculation against influenza (Renamed from Need for immunization against influenza)] Resolved: 5 07-04-2016 Episodic Residual codes; unclassified (20 sources) Edema; Translations: [Edema] Resolved: 3 01-25-2017 Episodic Residual codes; unclassified (20 sources) Non-smoker; Translations: [Non-smoker] 07-15-2020 Episodic Residual codes; unclassified (1 source) Edema, unspecified; Translations: [Edema, unspecified] Onset: Episodic Skin and subcutaneous tissue infections (20 sources) Cellulitis and abscess of leg ; Translations: [Cellulitis] Resolved: 3 01-25-2017 Episodic Comment on above: clinda continue, loo k at sens and sens to all, will return tomorrow for one more resolving Syncope (7 sources) Near syncope; Translations: [Syncope and collapse] 06-27-2021 Episodic Thyroid disorders (20 sources) Thyroid nodule; Translations: [Thyroid nodule] 11-29-2017 Chronic Comment on above: US 06/19/16: incresi ng size of nodulesSaw miguelangel 07/03/16Getting biopsy 07/19/16- negative Transient cerebral ischemia (10 sources) Transient cerebral ischemia; Translations: [Cerebral ischemia] Onset: 4 08-01-2013 Chronic Unclassified (20 sources) Imaging of thorax abnormal; Translations: [Blood chemistry abnormal] Resolved: 8 11-29-2017 Episodic Comment on above: sees urology Unclassified (20 sources) Memory impairment; Translations: [Needs influenza immunization] Resolved: 5 11-29-2017 Episodic Comment on above: scored mini mental s core - pt refused memory meds sees urology improved with 3 days lasix Unclassified (20 sources) Unclassified (20 sources) Weight gain (783.1) Unclassified (20 sources) Colon Polyps, History of (V12.72) Unclassified (20 sources) HYPERTROPHY (BENIGN) OF PROSTATE WITHOUT URINARY OBSTRUCTION (600.00) Unclassified (20 sources) Carotid stenosis (433.10) Unclassified (20 sources) Carotid stenosis Unclassified (20 sources) BMI 30.0-30.9, ADULT (V85.30) Unclassified (20 sources) Hyperlipemia Unclassified (20 sources) Elevated PSA Unclassified (20 sources) Bilateral carotid artery stenosis Unclassified (20 sources) History of colon polyps Unclassified (20 sources) BMI 26.0-26.9,adult Unclassified (20 sources) Non-smoker; Translations: [Non-smoker] 11-29-2017 Unclassified (20 sources) Prediabetes; Translations: [Prediabetes] Resolved: 8 11-29-2017 Unclassified (20 sources) Elavated PSA (790.93) Unclassified (20 sources) BMI 28.0-28.9,adult Unclassified (20 sources) BMI 27.0-27.9,adult Unclassified (20 sources) paresthesias Unclassified (20 sources) elevating psa 11-29-2017 Unclassified (1 source) Long-term drug therapy; Translations: [Other exterminator termite (current) drug therapy] Onset: 1 02-10-2011 Unclassified (2 sources) Other persistent atrial fibrillation; Translations: [Other persistent atrial fibrillation] Onset: 5 Past or Other Problems Problem Classification Problem Date Documented Date Episodic/Chronic Acute cerebrovascular disease (20 sources) Acute cerebrovascular disease Resolved: 01-06-2009 01-25-2017 Comment on above: think nerve impingem ent- but he doesnt want furhter interventiotn- told of signs of stroke and what to do Coronary atherosclerosis and other heart disease (6 sources) Presence of aortocoronary bypass graft; Translations: [Aortocoronary bypass status] Onset: 06-29-2001 02-10-2011 Episodic Occlusion or stenosis of precerebral arteries (19 sources) Bilateral carotid artery stenosis; Translations: [Bilateral carotid artery stenosis] 11-29-2017 Comment on above: pt has dopplers sche duled 12/14 Other aftercare (2 sources) Other custodial (current) drug therapy; Translations: [Other exterminator termite (current) drug therapy] Onset: 02-10-2011 02-10-2011 Episodic Other ear and sense organ disorders (20 sources) Infective otitis externa; Translations: [Infective otitis externa, unspecified laterality] Resolved: 12-08-2013 06-23-2015 Episodic Other nutritional; endocrine; and metabolic disorders (6 sources) Body mass index (BMI) 26.0-26.9, adult; Translations: [Body mass index (BMI) 26.0-26.9, adult] Onset: 08-18-2014 Resolved: 08-01-2016 08-01-2016 Episodic Other upper respiratory disease (20 sources) Allergic rhinitis; Translations: [Allergic rhinitis] Resolved: 11-29-2017 11-29-2017 Chronic Pneumonia (except that caused by tuberculosis or sexually transmitted disease) (5 sources) Pneumonia (except that caused by tuberculosis or sexually transmitted disease) Residual codes; unclassified (20 sources) Swelling - edema - symptom; Translations: [Edema] Resolved: 09-27-2012 01-25-2017 Episodic Comment on above: improved with 3 days lasix Superficial injury; contusion (7 sources) Tick bite; Translations: [Insect bite (nonvenomous) of abdominal wall, initial encounter] Onset: 11-28-2021 01-05-2022 Episodic Unclassified (20 sources) Abnormal blood chemistry (790.6) Unclassified (20 sources) SCREENING FOR CANCER OF THE PROSTATE (V76.44) Unclassified (20 sources) abnormal PSA- found in review of old records from 2002- pt not aware of this Resolved: 06-17-2012 01-25-2017 Unclassified (20 sources) OTITIS EXTERNA, INFECTIVE NOS (380.10) Unclassified (20 sources) Abnormal Chest X-Ray (793.99) Unclassified (20 sources) Encounter for screening for malignant neoplasm of colon (Renamed from Special screening for malignant neoplasms, colon); Translations: [Screening status] 11-29-2017 Comment on above: order cologard Unclassified (20 sources) Screening for prostate cancer; Translations: [Screening status] 11-29-2017 Comment on above: h/o elev psa and fol low with urology Unclassified (20 sources) Annual Medicare Phyiscal WITHOUT abnormal findings (Renamed from Encounter for general adult medical examination without abnormal findings); Translations: [Patient encounter status] 11-29-2017 Unclassified (20 sources) Unspecified Diagnosis Resolved: 12-08-2013 12-08-2013 Unclassified (20 sources) pulstile aorta- get ultrasound of aorta Resolved: 01-06-2009 01-25-2017 Unclassified (20 sources) possible hemolysis- could be from the beta lactam antiobiotic- will recheck the haptoglobin and other labs and see if still occcurring Resolved: 01-06-2009 01-25-2017 Unclassified (20 sources) osteomyelitis- stable off antiobiotics- take picc line out on sunday Resolved: 01-06-2009 01-25-2017 Unclassified (20 sources) carotid bruit on the right Resolved: 01-06-2009 01-25-2017 Unclassified (20 sources) osteomyelitis of right 5th -200511-29-2017 Unclassified (20 sources) Screening status; Translations: [Encounter for screening for malignant neoplasm of colon (Renamed from Special screening for malignant neoplasms, colon)] 11-29-2017 Comment on above: order cologard h/o elev psa and fol low with urology w/age no scope Unclassified (20 sources) Non-smoker; Translations: [Non-smoker] 11-29-2017 Unclassified (20 sources) Patient encounter status; Translations: [Annual Medicare Phyiscal WITHOUT abnormal findings (Renamed from Encounter for general adult medical examination without abnormal findings)] 11-29-2017 Results Test Name Value Interpretation Reference Range Facility Cardiology Visit Reporton Cardiology Visit Report [facility] [address] [place] [address] OFFICE VISIT Date of Service: 03/25/25 MR#: [id number] Acct: [id number] Name: REMY BLACKBURN Rep #: [id number] : 1940 Provider: DASH lam Age/Sex: 84/M Location: [facility] [place] Status: Signed HPI HPI History of Present Illness Details: REMY BLACKBURN, is a 84 M who presents to the office today for a cardiovascular followup. He has a history of coronary artery disease with bypass surgery in 2000. He did have a left internal mammary artery to the left anterior descending artery and diagonal as a sequential graft, radial graft to the obtuse marginal branch, and saphenous vein graft to the right coronary artery. He also has a history of hypertension, hyperlipidemia, left carotid stenosis estimated at 50 to 70%. He presents for follow-up visit. The patient had evidence of paroxysmal atrial fibrillation with significant pauses noted his beta-loly was discontinued and he had placement of a Micra device in March 2021. On account of congestive heart failure symptoms, he underwent an echocardiogram on 08/22/2024 that showed ejection fraction of 60% and pulmonary artery systolic pressure 60 mmHg. He was noted to have moderate aortic valve stenosis with a mean aortic valve gradient 24 mmHg. Stress test at that same time was considered abnormal and showed a preserved ejection fraction. It was recommended to initiate isosorbide in conjunction to diuretics to assist with elevated pulmonary systolic pressure. He denies chest pain. He denies palpitations. He states his edema is improving. He states shortness of breath with activity. He feels this to be slowly worsening. He states lightheadedness when bending over and standing too quickly. He states worsening fatigue. His activity is reduced due to SOB and fatigue. Intake Vital Signs 02/19/25 10:04 03/25/25 11:51 Height 5 ft 11 in 5 ft 11 in Weight: 198 lb 182 lb BMI 27.6 25.4 BP 136/72 H 125/69 H Blood Pressure Location Lt brachial Lt brachial Position Sitting Sitting Respiration 18 16 Pulse 81 73 Pulse Source NIBP NIBP Intake Visit Reasons: 4 W FU Automotive Artist Required: No Accompanied by: Is patient in pain?: No Allergies No Known Allergies Allergy (Verified 03/25/25 11:53) Medications ???Medication ???Instructions ???Recorded ???Confirmed ???Type aspirin 81 mg chewable tablet 81 mg PO DAILY@0800 04/18/1403/25 History nitroglycerin 0.4 mg sublingual 0.4 mg sublingual Q5M PRN Chest 03/25/25 History tablet Pain dutasteride 0.5 mg capsule 0.5 mg PO DAILY 04/16/18 03/25/25 History pravastatin 80 mg tablet 80 mg PO QHS #90 tabs 02/20/20 Rx cholecalciferol (vitamin D3) 25 25 mcg PO DAILY 01/05/22 03/25/25 History mcg (1,000 unit) capsule finerenone 10 mg tablet (Kerendia) 10 mg PO QDAY 07/29/24 03/25/25 History cyanocobalamin (vitamin B-12) 1,000 mcg PO QDAY 08/13/24 5 History 1,000 mcg tablet dapagliflozin propanediol 10 mg 10 mg PO DAILY #30 tabs 08/13/24 0 03/25/25 Rx tablet (Farxiga) losartan 100 mg tablet 100 mg PO QDAY #90 tabs 11/17/24 0 03/25/25 Rx apixaban 5 mg tablet (Eliquis) 5 mg PO BID #60 tabs 02/16/2502/28 Rx furosemide 40 mg tablet (Lasix) 40 mg PO BID #90 tabs 02/19/25 Rx potassium chloride 20 mEq 20 meq PO QDAY #90 tabs 02/23/25 0 03/25/25 Rx tablet,extended release esomeprazole magnesium 40 mg 40 mg PO DAILY #90 caps 03/11/25 0 03/25/25 Rx capsule,delayed release Ejection fraction %: 60 Have you fallen in the past year?: No PFSH Medical History Edema Skin tear of left forearm without complication Left foot infection Tick bite of abdominal wall (11/28/21) Persistent atrial fibrillation Sick sinus syndrome Sinus pause Nonrheumatic aortic (valve) stenosis with insufficiency Chronic diastolic (congestive) heart failure Stenosis of left carotid artery Pure hypercholesterolemia Dyspnea on exertion Secondary pulmonary arterial hypertension 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 Normal [facility] Anion gap in Serum or Plasma Ordered By: Arnie Youssef on 03-02-2025 Anion gap [Moles/Vol] 12 mmol/L 12-11 [facility] BUN/creatinine ratioOrdered By: Arnie Youssef on 03-02-2025 Urea nitrogen/Creatinine [Mass ratio] 14.5 mg/mg 05-18 [facility] Basic Metabolic Profile (BMP )on 03-02-2025 BUN/CRE 14.5 RATIO Normal 05-18 [facility] Comment on above: Performed By: #### L 500.2500 ####[facility] [address] [place], [address] Calcium [Mass/Vol] 9.7 mg/dL Normal 7.6-11.0 [facility] Comment on above: Performed By: #### L 500.2500 ####[facility] [address] [place], [address] Chloride [Moles/Vol] 103 mmol/L Normal 98-108 [facility] Comment on above: Performed By: #### L 500.2500 ####[facility] [address] [place], [address] CO2 [Moles/Vol] 23.9 mmol/L Normal 21.0-32.0 [facility] Comment on above: Performed By: #### L 500.2500 ####[facility] [address] [place], [address] Creatinine [Mass/Vol] 1.08 mg/dL Normal 0.70-1.20 [facility] Comment on above: Performed By: #### L 500.2500 ####[facility] [address] [place], [address] GAP 12 Normal 12-11 [facility] Comment on above: Performed By: #### L 500.2500 ####[facility] [address] [place], [address] GFR/1.73 sq M.predicted among non-blacks MDRD (S/P/Bld) [Vol rate/Area] 67 mL/min/{1.73_m2} Normal >60 [facility] Comment on above: Result Comment: mL/m in/1.73m2 CKD-EPI Creatinine Equation (2020) Performed By: #### L 500.2500 ####[facility] [address] [place], [address] Glucose [Mass/Vol] 107 mg/dL High 70-99 [facility] Comment on above: Performed By: #### L 500.2500 ####[facility] [address] [place], [address] Potassium [Moles/Vol] 4.3 mmol/L Normal 3.3-5.1 [facility] Comment on above: Performed By: #### L 500.2500 ####[facility] [address] [place], [address] Sodium [Moles/Vol] 138 mmol/L Normal 133-145 [facility] Comment on above: Performed By: #### L 500.2500 ####[facility] [address] [place], [address] Urea nitrogen [Mass/Vol] 16 mg/dL Normal 4-19 [facility] Comment on above: Performed By: #### L 500.2500 ####[facility] [address] [place], [address] Carbon dioxide, total [Moles /volume] in Central venous bloodOrdered By: Arnie Youssef on 03-02-2025 CO2 [Moles/Vol] 23.9 mmol/L 21.0-32.0 [facility] Chloride assayOrdered By: Rocio Youssef on 03-02-2025 Chloride [Moles/Vol] 103 mmol/L 98-108 [facility] Glomerular filtration rate ( GFR) estimation/1.73 sq m using serum, plasma, or whole bOrdered By: Arnie Youssef on 03-02-2025 GFR/1.73 sq M.predicted among non-blacks MDRD (S/P/Bld) [Vol rate/Area] 67 mL/min/{1.73_m2} >60 [facility] Comment on above: mL/min/1.73m2 CKD-EP I Creatinine Equation (2020) Potassium measurement (mass/ volume)Ordered By: Arnie Youssef on 03-02-2025 Potassium (Unsp spec) [Mass/Vol] 4.3 mmol/L 3.3-5.1 [facility] Serum creatinine measurement (mass/volume)Ordered By: Arnie Youssef on 03-02-2025 Creatinine [Mass/Vol] 1.08 mg/dL 0.70-1.20 [facility] Serum glucose measurement (m ass/volume)Ordered By: Arnie Youssef on 03-02-2025 Glucose [Mass/Vol] 107 mg/dL High 70-99 [facility] Serum or plasma calcium davi urement (mass/volume)Ordered By: Arnie Youssef on 03-02-2025 Calcium [Mass/Vol] 9.7 mg/dL 7.6-11.0 [facility] Serum or plasma urea nitroge n measurement (mass/volume)Ordered By: Arnie Youssef on 03-02-2025 Urea nitrogen [Mass/Vol] 16 mg/dL 4-19 [facility] Sodium levelOrdered By: Arnie Youssef on 03-02-2025 Sodium [Moles/Vol] 138 mmol/L 133-145 [facility] Cardiology Visit Reporton Cardiology Visit Report [facility] [address] [place], [place] [id number] OFFICE VISIT Date of Service: 02/19/25 MR#: [id number] Acct: [id number] Name: REMY BLACKBURN Rep #: [id number] : 1940 Provider: DASH lam Age/Sex: 84/M Location: [facility] [place] Status: Signed HPI HPI History of Present Illness Details: REMY BLACKBURN, is a 84 M who presents to the office today for a cardiovascular followup. He has a history of coronary artery disease with bypass surgery in 2000. He did have a left internal mammary artery to the left anterior descending artery and diagonal as a sequential graft, radial graft to the obtuse marginal branch, and saphenous vein graft to the right coronary artery. He also has a history of hypertension, hyperlipidemia, left carotid stenosis estimated at 50 to 70%. He presents for follow-up visit. The patient had evidence of paroxysmal atrial fibrillation with significant pauses noted his beta-loly was discontinued and he had placement of a Micra device in March 2021. On account of congestive heart failure symptoms, he underwent an echocardiogram on 08/22/2024 that showed ejection fraction of 60% and pulmonary artery systolic pressure 60 mmHg. He was noted to have moderate aortic valve stenosis with a mean aortic valve gradient 24 mmHg. Stress test at that same time was considered abnormal and showed a preserved ejection fraction. It was recommended to initiate isosorbide in conjunction to diuretics to assist with elevated pulmonary systolic pressure. He denies chest, arm, jaw, or neck discomfort. He denies palpitations. He states bilateral lower extremity edema that is improving. He denies claudication. He states worsening shortness of breath since his Lasix has been decreased. He denies shortness of breath at rest, orthopnea, or PND. He denies chronic cough. He denies significant, sudden weight gain. He acknowledges lightheadedness when bending over. He denies dizziness, near-syncope, or syncope. He denies blood in urine, blood in stool, or epistaxis. He denies fever with chills. He denies myalgia. He states fatigue. His exercise level has remained stable. Intake Vital Signs 09/19/24 14:25 02/19/25 10:04 Height 5 ft 11 in 5 ft 11 in Weight: 177 lb 198 lb BMI 24.7 27.6 BP 106/55 L 136/72 H Blood Pressure Location Lt brachial Lt brachial Position Sitting Sitting Respiration 18 18 Pulse 62 81 Pulse Source NIBP NIBP Intake Visit Reasons: 5 M FU Automotive Artist Required: No Accompanied by: Is patient in pain?: No Allergies No Known Allergies Allergy (Verified 02/19/25 10:59) Medications ???Medication ???Instructions ???Recorded ???Confirmed ???Type aspirin 81 mg chewable tablet 81 mg PO DAILY@0800 04/18/1402/19 History nitroglycerin 0.4 mg sublingual 0.4 mg sublingual Q5M PRN Chest 02/19/25 History tablet Pain dutasteride 0.5 mg capsule 0.5 mg PO DAILY 04/16/18 02/19/25 History pravastatin 80 mg tablet 80 mg PO QHS #90 tabs 02/20/20 Rx cholecalciferol (vitamin D3) 25 25 mcg PO DAILY 01/05/22 02/19/25 History mcg (1,000 unit) capsule esomeprazole magnesium 40 mg 40 mg PO DAILY #90 caps 03/17/24 0 02/19/25 Rx capsule,delayed release finerenone 10 mg tablet (Kerendia) 10 mg PO QDAY 07/29/24 02/19/25 History cyanocobalamin (vitamin B-12) 1,000 mcg PO QDAY 08/13/24 5 History 1,000 mcg tablet dapagliflozin propanediol 10 mg 10 mg PO DAILY #30 tabs 08/13/24 0 02/19/25 Rx tablet (Farxiga) losartan 100 mg tablet 100 mg PO QDAY #90 tabs 11/17/24 0 02/19/25 Rx apixaban 5 mg tablet (Eliquis) 5 mg PO BID #60 tabs 02/16/2501/28 Rx furosemide 40 mg tablet (Lasix) 40 mg PO BID #90 tabs 02/19/25 Rx potassium chloride 20 mEq 20 meq PO QDAY #90 tabs 02/23/25 Rx tablet,extended release Ejection fraction %: 60 Have you fallen in the past year?: No PFSH Medical History Edema Skin tear of left forearm without complication Left foot infection Tick bite of abdominal wall (11/28/21) Persistent atrial fibrillation Sick sinus syndrome Sinus pause Nonrheumatic aortic (valve) stenosis with insufficiency Chronic diastolic (congestive) heart failure Stenosis of left carotid artery Pure hypercholesterolemia Dyspnea on exertion Secondary pulmonary arterial hypertension 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 Normal [facility] Anion gap in Serum or Plasma Ordered By: Arnie Youssef on 02-03-2025 Anion gap [Moles/Vol] 11 mmol/L 12-11 [facility] BUN/creatinine ratioOrdered By: Arnie Youssef on 02-03-2025 Urea nitrogen/Creatinine [Mass ratio] 18.5 mg/mg 05-18 [facility] Basic Metabolic Profile (BMP )on 02-03-2025 BUN/CRE 18.5 RATIO Normal 05-18 [facility] Comment on above: Performed By: #### L 500.2500 ####[facility] [address] [place], [address] Calcium [Mass/Vol] 9.4 mg/dL Normal 7.6-11.0 [facility] Comment on above: Performed By: #### L 500.2500 ####[facility] [address] [place], [address] Chloride [Moles/Vol] 104 mmol/L Normal 98-108 [facility] Comment on above: Performed By: #### L 500.2500 ####[facility] [address] [place], [address] CO2 [Moles/Vol] 22.4 mmol/L Normal 21.0-32.0 [facility] Comment on above: Performed By: #### L 500.2500 ####[facility] [address] [place], [address] Creatinine [Mass/Vol] 1.12 mg/dL Normal 0.70-1.20 [facility] Comment on above: Performed By: #### L 500.2500 ####[facility] [address] [place], [address] GAP 11 Normal 12-11 [facility] Comment on above: Performed By: #### L 500.2500 ####[facility] [address] [place], [address] GFR/1.73 sq M.predicted among non-blacks MDRD (S/P/Bld) [Vol rate/Area] 64 mL/min/{1.73_m2} Normal >60 [facility] Comment on above: Result Comment: mL/m in/1.73m2 CKD-EPI Creatinine Equation (2020) Performed By: #### L 500.2500 ####[facility] [address] [place], [address] Glucose [Mass/Vol] 139 mg/dL High 70-99 [facility] Comment on above: Performed By: #### L 500.2500 ####[facility] [address] [place], [address] Potassium [Moles/Vol] 4.1 mmol/L Normal 3.3-5.1 [facility] Comment on above: Performed By: #### L 500.2500 ####[facility] [address] [place], [address] Sodium [Moles/Vol] 137 mmol/L Normal 133-145 [facility] Comment on above: Performed By: #### L 500.2500 ####[facility] [address] [place], [address] Urea nitrogen [Mass/Vol] 21 mg/dL High 4-19 [facility] Comment on above: Performed By: #### L 500.2500 ####[facility] [address] [place], [address] Carbon dioxide, total [Moles /volume] in Central venous bloodOrdered By: Arnie Youssef on 02-03-2025 CO2 [Moles/Vol] 22.4 mmol/L 21.0-32.0 [facility] Chloride assayOrdered By: Rocio Youssef on 02-03-2025 Chloride [Moles/Vol] 104 mmol/L 98-108 [facility] Glomerular filtration rate ( GFR) estimation/1.73 sq m using serum, plasma, or whole bOrdered By: Arnie Youssef on 02-03-2025 GFR/1.73 sq M.predicted among non-blacks MDRD (S/P/Bld) [Vol rate/Area] 64 mL/min/{1.73_m2} >60 [facility] Comment on above: mL/min/1.73m2 CKD-EP I Creatinine Equation (2020) Potassium measurement (mass/ volume)Ordered By: Arnie Youssef on 02-03-2025 Potassium (Unsp spec) [Mass/Vol] 4.1 mmol/L 3.3-5.1 [facility] Serum creatinine measurement (mass/volume)Ordered By: Arnie Youssef on 02-03-2025 Creatinine [Mass/Vol] 1.12 mg/dL 0.70-1.20 [facility] Serum glucose measurement (m ass/volume)Ordered By: Arnie Youssef on 02-03-2025 Glucose [Mass/Vol] 139 mg/dL High 70-99 [facility] Serum or plasma calcium davi urement (mass/volume)Ordered By: Arnie Youssef on 02-03-2025 Calcium [Mass/Vol] 9.4 mg/dL 7.6-11.0 [facility] Serum or plasma urea nitroge n measurement (mass/volume)Ordered By: Arnie Youssef on 02-03-2025 Urea nitrogen [Mass/Vol] 21 mg/dL High 4-19 [facility] Sodium levelOrdered By: Arnie Youssef on 02-03-2025 Sodium [Moles/Vol] 137 mmol/L 133-145 [facility] Cardiology Visit Reporton Cardiology Visit Report [facility] [place], [place] [id number] OFFICE VISIT Date of Service: 09/19/24 MR#: [id number] Acct: [id number] Name: REMY BLACKBURN Rep #: [id number] : 1940 Provider: DASH lam Age/Sex: 84/M Location: [facility] [place] Status: Signed HPI HPI History of Present Illness Details: REMY BLACKBURN, is a 84 M who presents to the office today for a cardiovascular followup. He has a history of coronary artery disease with bypass surgery in 2000. He did have a left internal mammary artery to the left anterior descending artery and diagonal as a sequential graft, radial graft to the obtuse marginal branch, and saphenous vein graft to the right coronary artery. He also has a history of hypertension, hyperlipidemia, left carotid stenosis estimated at 50 to 70%. He presents for follow-up visit. The patient had evidence of paroxysmal atrial fibrillation with significant pauses noted his beta-loly was discontinued and he had placement of a Micra device in March 2021. On account of congestive heart failure symptoms, he underwent an echocardiogram on 08/22/2024 that showed ejection fraction of 60% and pulmonary artery systolic pressure 60 mmHg. He was noted to have moderate aortic valve stenosis with a mean aortic valve gradient 24 mmHg. Stress test at that same time was considered abnormal and showed a preserved ejection fraction. It was recommended to initiate isosorbide in conjunction to diuretics to assist with elevated pulmonary systolic pressure. He denies chest, arm, jaw, or neck discomfort. He denies palpitations. He states bilateral lower extremity edema that is improving. He denies claudication. He denies shortness of breath with activity, shortness of breath at rest, orthopnea, or PND. He denies chronic cough. He denies significant, sudden weight gain. He denies lightheadedness, dizziness, near-syncope, or syncope. He denies blood in urine, blood in stool, or epistaxis. He denies fever with chills. He denies myalgia. He denies fatigue. His exercise level has remained stable. Intake Vital Signs 08/29/24 09:55 09/19/24 14:25 Height 5 ft 11 in 5 ft 11 in Weight: 172 lb 177 lb BMI 24.0 24.7 BP 119/74 106/55 L Blood Pressure Location Lt brachial Lt brachial Position Sitting Sitting Respiration 18 18 Pulse 80 62 Pulse Source Monitor NIBP Pulse Oximetry (%) 96 Intake Visit Reasons: Added per JR for CHF/ L.L. Automotive Artist Required: No Accompanied by: Is patient in pain?: No Allergies No Known Allergies Allergy (Verified 09/19/24 14:34) Medications ???Medication ???Instructions ???Recorded ???Confirmed ???Type aspirin 81 mg chewable tablet 81 mg PO DAILY@0800 04/18/1409/19 History nitroglycerin 0.4 mg sublingual 0.4 mg sublingual Q5M PRN Chest 09/19/24 History tablet Pain dutasteride 0.5 mg capsule 0.5 mg PO DAILY 04/16/18 09/19/24 History pravastatin 80 mg tablet 80 mg PO QHS #90 tabs 02/20/20 Rx cholecalciferol (vitamin D3) 25 25 mcg PO DAILY 01/05/22 09/19/24 History mcg (1,000 unit) capsule apixaban 5 mg tablet (Eliquis) 5 mg PO BID #60 tabs 02/25/2408/31 Rx esomeprazole magnesium 40 mg 40 mg PO DAILY #90 caps 03/17/24 0 09/19/24 Rx capsule,delayed release finerenone 10 mg tablet (Kerendia) 10 mg PO QDAY 07/29/24 09/19/24 History cyanocobalamin (vitamin B-12) 1,000 mcg PO QDAY 08/13/24 5 History 1,000 mcg tablet dapagliflozin propanediol 10 mg 10 mg PO DAILY #30 tabs 08/13/24 0 09/19/24 Rx tablet (Farxiga) losartan 100 mg tablet 100 mg PO QDAY 08/13/24 09/19/24 H istory furosemide 40 mg tablet (Lasix) 40 mg PO BID 09/15/24 09/19/24 His tory potassium chloride 20 mEq 20 meq PO QDAY #90 tabs 09/15/24 0 09/19/24 Rx tablet,extended release Ejection fraction %: 60 Have you fallen in the past year?: No PFSH Medical History (Reviewed 09/19/24 @ 14:47 by Arnie Youssef DISTRICT OPERATIONS MANAGER, DISTRICT OPERATIONS MANAGER-C) Edema Skin tear of left forearm without complication Left foot infection Tick bite of abdominal wall (11/28/21) Persistent atrial fibrillation Sick sinus syndrome Sinus pause Nonrheumatic aortic (valve) stenosis with insufficiency Chronic diastolic (congestive) heart failure Stenosis of left carotid artery Pure hypercholesterolemia Dyspnea on exertion Secondary pulmonary arterial hypertension Nonrheumatic aortic valve insufficiency Non-rheumatic tricuspid valve insufficiency Dizziness and giddiness Pulmonary embolism Essential (primary) hypertension Atherosclerosis of coronary artery of [place] heart without angina pectoris Shortness of breath TIA (transient ischemic attack) Surgical History (Reviewed 09/19/24 @ 14:47 by Arnie Youssef DISTRICT OPERATIONS MANAGER, DISTRICT OPERATIONS MANAGER-C) History of placement of leadless cardiac pa (more content not included)... Normal [facility] Basic Metabolic Profile (BMP )on 09-18-2024 BUN/CRE 20.0 RATIO Normal - [facility] Comment on above: Performed By: #### L 500.2500 ####[facility] [address] [place], [address] CA,Total 10.6 mg/dL High 8.5-10.1 [facility] Comment on above: Performed By: #### L 500.2500 ####[facility] [address] [place], [address] Chloride [Moles/Vol] 102 mmol/L Normal 98-107 [facility] Comment on above: Performed By: #### L 500.2500 ####[facility] [address] [place], [address] CO2 [Moles/Vol] 28.0 mmol/L Normal 21.0-32.0 [facility] Comment on above: Performed By: #### L 500.2500 ####[facility] [address] [place], [address] Creatinine [Mass/Vol] 1.20 mg/dL Normal 0.70-1.30 [facility] Comment on above: Result Comment: The validity of the calculated GFR GFRAA in patients over 70 years has not been determined. Clinical correlation is essential. Performed By: #### L 500.2500 ####[facility] [address] [place], [address] EST GFR - AA 74 mL/min Normal >60 [facility] Comment on above: Result Comment: Afri can [place] GFR Calc Performed By: #### L 500.2500 ####[facility] [address] [place], [address] GAP 6 Normal 5-15 [facility] Comment on above: Performed By: #### L 500.2500 ####[facility] [address] [place], [address] GFR/1.73 sq M.predicted among non-blacks MDRD (S/P/Bld) [Vol rate/Area] 61 mL/min/{1.73_m2} Normal >60 [facility] Comment on above: Result Comment: Non- GFR Calc Performed By: #### L 500.2500 ####[facility] [address] [place], [address] Glucose [Mass/Vol] 111 mg/dL High 74-106 [facility] Comment on above: Result Comment: Fast ing Glucose result from 100 to 125 mg/dL suggests IMPAIRED HOMEOSTASIS per A.D.A. criteria. Performed By: #### L 500.2500 ####[facility] [address] [place], [address] Potassium [Moles/Vol] 5.1 mmol/L Normal 3.5-5.1 [facility] Comment on above: Performed By: #### L 500.2500 ####[facility] [address] [place], [address] Sodium [Moles/Vol] 136 mmol/L Normal 136-145 [facility] Comment on above: Performed By: #### L 500.2500 ####[facility] [address] [place], [address] Urea nitrogen [Mass/Vol] 24 mg/dL High 7-18 [facility] Comment on above: Performed By: #### L 500.2500 ####[facility] [address] [place], [address] Blood urea nitrogen (BUN)/cr eatinine ratioOrdered By: Arnie Youssef on 09-18-2024 Urea nitrogen/Creatinine [Mass ratio] 20.0 mg/mg 10- [facility] Carbon dioxide measurementOr dered By: Arnie Youssef on 09-18-2024 CO2 [Moles/Vol] 28.0 mmol/L 21.0-32.0 [facility] Chloride measurementOrdered By: Arnie Youssef on 09-18-2024 Chloride [Moles/Vol] 102 mmol/L 98-107 [facility] Glomerular filtration rate ( GFR) estimationOrdered By: Arnie Youssef on 09-18-2024 GFR/1.73 sq M.predicted among non-blacks MDRD (S/P/Bld) [Vol rate/Area] 61 mL/min/{1.73_m2} >60 [facility] Comment on above: Non- GFR Calc Glucose measurementOrdered B y: Arnie Youssef on 09-18-2024 Glucose [Mass/Vol] 111 mg/dL High 74-106 [facility] Comment on above: Fasting Glucose resu lt from 100 to 125 mg/dL suggests IMPAIRED HOMEOSTASIS per A.D.A. criteria. Potassium measurementOrdered By: Arnie Youssef on 09-18-2024 Potassium [Moles/Vol] 5.1 mmol/L 3.5-5.1 [facility] Serum anion gap measurementO rdered By: Arnie Youssef on 09-18-2024 Anion gap [Moles/Vol] 6 mmol/L 5-15 [facility] Serum or plasma calcium davi urement (mass/volume)Ordered By: Arnie Youssef on 09-18-2024 Calcium [Mass/Vol] 10.6 mg/dL High 8.5-10.1 [facility] Serum or plasma creatinine m easurement (mass/volume)Ordered By: Arnie Youssef on 09-18-2024 Creatinine [Mass/Vol] 1.20 mg/dL 0.70-1.30 [facility] Comment on above: The validity of the calculated GFR & GFRAA in patients over 70 years has not been determined. Clinical correlation is essential. Serum or plasma urea nitroge n measurement (mass/volume)Ordered By: Arnie Youssef on 09-18-2024 Urea nitrogen [Mass/Vol] 24 mg/dL High 7-18 [facility] Sodium levelOrdered By: Arnie Youssef on 02-20-2025 Sodium [Moles/Vol] 136 mmol/L 136-145 [facility] Cardiology Visit Reporton Cardiology Visit Report [facility] [address] [place], [place] [address] OFFICE VISIT Date of Service: 08/29/24 MR#: [id number] Acct: [id number] Name: REMY BLACKBURN Rep #: [id number] : 1940 Provider: DASH lam Age/Sex: 84/M [place] [facility] [place] Status: Signed HPI HPI History of Present Illness Details: REMY BLACKBURN, is a 84 M who presents to the office today for a cardiovascular followup. He has a history of coronary artery disease with bypass surgery in 2000. He did have a left internal mammary artery to the left anterior descending artery and diagonal as a sequential graft, radial graft to the obtuse marginal branch, and saphenous vein graft to the right coronary artery. He also has a history of hypertension, hyperlipidemia, left carotid stenosis estimated at 50 to 70%. He presents for follow-up visit. The patient had evidence of paroxysmal atrial fibrillation with significant pauses noted his beta-loly was discontinued and he had placement of a Micra device in March 2021. On account of congestive heart failure symptoms, he underwent an echocardiogram on 08/22/2024 that showed ejection fraction of 60% and pulmonary artery systolic pressure 60 mmHg. He was noted to have moderate aortic valve stenosis with a mean aortic valve gradient 24 mmHg. Stress test at that same time was considered abnormal and showed a preserved ejection fraction. It was recommended to initiate isosorbide in conjunction to diuretics to assist with elevated pulmonary systolic pressure. He denies chest, arm, jaw, or neck discomfort. He denies palpitations. He denies bilateral lower extremity edema. He denies claudication. He denies shortness of breath with activity, shortness of breath at rest, orthopnea, or PND. He denies chronic cough. He denies significant, sudden weight gain. He denies lightheadedness, dizziness, near-syncope, or syncope. He denies blood in urine, blood in stool, or epistaxis. He denies fever with chills. He denies myalgia. He denies fatigue. His exercise level has remained stable. Intake Vital Signs 12/19/24 11:03 08/18/24 13:35 08/29/24 09:55 Height 5 ft 11 in 5 ft 11 in 5 ft 11 in Weight: 172 lb BMI 24.0 BP 119/74 Blood Pressure Location Lt brachial Position Sitting Respiration 18 Pulse 80 Pulse Source Monitor Pulse Oximetry (%) 96 Intake Visit Reasons: Moved up per JR for CHF L.L. Automotive Artist Required: No Is patient in pain?: No Allergies No Known Allergies Allergy (Verified 08/29/24 09:55) Medications ???Medication ???Instructions ???Recorded ???Confirmed ???Type aspirin 81 mg chewable tablet 81 mg PO DAILY@0800 04/18/1408/29 History nitroglycerin 0.4 mg sublingual 0.4 mg sublingual Q5M PRN Chest 08/29/24 History tablet Pain dutasteride 0.5 mg capsule 0.5 mg PO DAILY 04/16/18 08/29/24 History pravastatin 80 mg tablet 80 mg PO QHS #90 tabs 02/20/20 Rx cholecalciferol (vitamin D3) 25 25 mcg PO DAILY 01/05/22 08/29/24 History mcg (1,000 unit) capsule apixaban 5 mg tablet (Eliquis) 5 mg PO BID #60 tabs 02/25/2408/01 Rx esomeprazole magnesium 40 mg 40 mg PO DAILY #90 caps 03/17/24 0 08/29/24 Rx capsule,delayed release finerenone 10 mg tablet (Kerendia) 10 mg PO QDAY 07/29/24 08/29/24 History cyanocobalamin (vitamin B-12) 1,000 mcg PO QDAY 08/13/24 5 History 1,000 mcg tablet dapagliflozin propanediol 10 mg 10 mg PO DAILY #30 tabs 08/13/24 0 08/29/24 Rx tablet (Farxiga) losartan 100 mg tablet 100 mg PO QDAY 08/13/24 08/29/24 H istory potassium chloride 20 mEq 20 meq PO BID #180 tabs 08/18/24 0 08/29/24 Rx tablet,extended release furosemide 40 mg tablet (Lasix) 80 mg PO BID 08/29/24 08/29/24 His tory Have you fallen in the past year?: No [facility] Medical History Edema Skin tear of left forearm without complication Left foot infection Tick bite of abdominal wall (11/28/21) Persistent atrial fibrillation Sick sinus syndrome Sinus pause Nonrheumatic aortic (valve) stenosis with insufficiency Chronic diastolic (congestive) heart failure Stenosis of left carotid artery Pure hypercholesterolemia Dyspnea on exertion Secondary pulmonary arterial hypertension 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 Normal [facility] Stress Reporton 08-25-2024 Stress Report [facility] [address] [place] [address] MR#: [id number] Acct: [id number] Name: REMY BLACKBURN Rep #: [id number] : 1940 84 From: Benito Diaz MD Primary Care: Dr. Laura Rodriguez, DO Status: REG CLI Referring Dr: Arnie Youssef DISTRICT OPERATIONS MANAGER DISTRICT OPERATIONS MANAGER-C Sex: M C Stress Test Report Pharmacologic myocardial perfusion stress test. 84-year-old man with a history of coronary artery disease and shortness of breath Resting EKG demonstrates atrial fibrillation with a rate of 71 bpm. Resting blood pressure is 144/80 mmHg. 0.4 mg of regadenoson was infused per usual protocol followed by rapid intravenous saline flush injection. Continuous EKG monitoring was performed. The maximum heart rate was 90 bpm which was 66% of max impacted heart rate the maximum workload was 1 metabolic equivalent. At rest there were no ST or T wave changes noted to suggest ischemia and at peak infusion nonspecific ST changes were noted which did not meet the criteria for ischemia. No clinical angina is noted. The final blood pressure was 146/80 mmHg. Myocardial perfusion protocol. 15 mCi of technetium 99m sestamibi was injected at rest. 0.4 mg of regadenoson was infused per usual protocol. At peak infusion 43.1 mCi of technetium 99m sestamibi was injected stress images were obtained stress and rest images were reconstructed and compared in the short axis vertical long and horizontal long axis. Gated images were also obtained. Perfusion SPECT analysis: Review of the stress images demonstrate normal uptake of tracer noted in all areas of the myocardium except for a portion in the mid anterior wall with reduced perfusion. The resting images similar demonstrated normal uptake of tracer noted in all areas of the myocardium. There is improvement in the mid anterior wall perfusion defect suggesting a mild amount of mid anterior ischemia present. Gated SPECT analysis: The gated ejection fraction is 54%. Conclusion: Abnormal pharmacologic myocardial perfusion stress test. Preserved ejection fraction. Mid anterior ischemia present 08/25/24 1131 Date Benito Diaz MD CC: DISTRICT OPERATIONS MANAGER-C Arnie Youssef; Dr. Laura Rodriguez DO Date Dictated: 08/25/24 1126 Date Transcribed: 08/25/241125 Plumber And Tinner: CO Signed Normal [facility] Echo Complete W/ Contraston 08-22-2024 Echo Complete W/ Contrast [facility] Cardi[facility] [address] [facility] [place] [address] Echo Complete W/ Contrast 08/22/24 0852 MR#: [id number] Acct: [id number] Name: REMY BLACKBURN Rep #: [id number] : 1940 84 From: Benito Diaz MD Attending Dr: Arnie Youssef NP-C Status: REG CLI Ordering Dr: Arnie Youssef NP DISTRICT OPERATIONS MANAGER-C Date: 08/22/24 Location: [facility] Sex: M C Admitted: Reason For Study: CHF Procedure This was a 2D Doppler, Color Flow transthoracic echocardiogram. The study was technically difficult. Exam performed in department. Left Ventricle Normal LV size. Left ventricular systolic function is normal. The left ventricular ejection fraction is 60 %. No regional wall motion abnormalities noted. Right Ventricle Normal RV size. Pacer in RV apex. Normal systolic function. Atria The left atrium is mildly enlarged. Normal right atrium. Mitral Valve There is mild mitral annular calcification. Mild (1+) mitral valve insufficiency. Tricuspid Valve Normal tricuspid valve. Moderate (2+) tricuspid valve insufficiency. Pulmonary artery systolic pressure is 60 mmHg. Aortic Valve Trisinus/trileaflet aortic valve. Moderate focal aortic valve calcification. Peak aortic valve gradient 37 mmHg. Mean aortic valve gradient 24 mmHg. Moderate aortic stenosis. Mild (1+) aortic valve insufficiency. Pulmonic Valve Normal pulmonic valve. Great Vessels Normal aortic root. The pulmonary artery is normal size. Normal inferior vena cava. Pericardium/Pleural No pericardial effusion. Medication Diluted definity 3ml given slow IV push to enhance endocardial definition. MMode/2D Measurements Calculations LVIDd: 4.6 cm IVSd: 1.1 cm LVOT diam: 2.0 cm LVIDs: 3.2 cm LVPWd: 0.98 cm RVDd: 3.6 cm FS: 29.8 % LVOT area: 3.1 cm2 Ao root diam: 3.2 cm LAV(MOD-bp): 63.9 ml LVAd ap4: 38.0 cm2 LAV(MOD-bp) Indexed: 30.9 ml/m2 LVLd ap4: 8.8 cm LAV(MOD-sp2): 62.1 ml EDV(MOD-sp4): 132.3 ml LAV(MOD-sp4): 65.7 ml EDV(sp4-el): 139.0 ml LVAs ap4: 22.2 cm2 LVLs ap4: 7.3 cm ESV(MOD-sp4): 57.2 ml ESV(sp4-el): 57.6 ml EF(MOD-sp4): 56.8 % EF(sp4-el): 58.6 % SV(MOD-sp4): 75.1 ml SV(sp4-el): 81.4 ml Aortic Valve Planimetry: 0.94 cm2 SI(MOD-sp4): 36.4 ml/m2 LA A4 area: 23.1 cm2 LA dimension(2D): 4.3 cm RA A4 area: 17.5 cm2 TAPSE: 1.7 cm Doppler Measurements Calculations MV E max memo: 94.2 cm/sec Ao V2 max: 302.6 cm/sec AI max memo: 342.8 cm/sec Ao max P.6 mmHg AI max P.1 mmHg Ao V2 mean: 230.9 cm/sec Ao mean P.5 mmHg AI dec slope: 224.3 cm/sec2 Ao V2 VTI: 70.3 cm AI P1/2t: 447.6 msec AV (velocity ratio): 0.30 ERIN(I,D): 0.94 cm2 ERIN(V,D): 1.0 cm2 LV V1 max: 98.6 cm/sec SV(LVOT): 66.0 ml PA V2 max: 79.7 cm/sec LV V1 max P.9 mmHg LV V1 mean P.9 mmHg LV V1 mean: 65.4 cm/sec LV V1 VTI: 21.4 cm TR max memo: 372.4 cm/sec TR max P.5 mmHg ECHO/Echo Complete W/ Contrast Interpretation Summary Normal LV size. Left ventricular systolic function is normal. The left ventricular ejection fraction is 60 %. Moderate focal aortic valve calcification. Mean aortic valve gradient 24 mmHg. Mild (1+) aortic valve insufficiency. Compared to the previous the pulmonary pressures are higher. The aortic valve gradients are mildly increased. Moderate aortic stenosis. ___ Ordering Physician: Arnie Youssef/Benito Diaz Referring Physician: LAURA RODRIGUEZ Performed By: Anay Stuart RDCS 08/25/24921 Date Benito Diaz MD CC: DASH Youssef; Dr. Laura Rodriguez DO Date Dictated: 08/22/24851 Date Transcribed: 08/25/24921 Plumber And Tinner: Signed Normal [facility] Cardiology Visit Reporton Cardiology Visit Report [facility] [address] [place], [place] [address]j [address] [place], [place] [address] OFFICE VISIT Date of Service: 08/18/24 MR#: [id number] Acct: [id number] Name: REMY BLACKBURN Rep #: [id number] : 1940 Provider: DASH lam Age/Sex: 84/M [place] [facility] [place] Status: Signed HPI HPI History of Present Illness Details: REMY BLACKBURN, is a 84 M who presents to the office today for a cardiovascular followup. He has a history of coronary artery disease with bypass surgery in 2000. He did have a left internal mammary artery to the left anterior descending artery and diagonal as a sequential graft, radial graft to the obtuse marginal branch, and saphenous vein graft to the right coronary artery. He also has a history of hypertension, hyperlipidemia, left carotid stenosis estimated at 50 to 70%. He presents for follow-up visit. The patient had evidence of paroxysmal atrial fibrillation with significant pauses noted his beta-loly was discontinued and he had placement of a Micra device in March 2021. He was seen in office on 08/13/2024 urgently on account of worsening shortness of breath. His diuretics were increased. He was started on antibiotic for potential pneumonia. He returns for follow-up. He denies chest, arm, jaw, or neck discomfort. He denies palpitations. He states bilateral lower extremity edema. He denies claudication. He acknowledges shortness of breath with activity. He denies shortness of breath at rest. He states orthopnea. He denies PND. He denies chronic cough. He denies significant, sudden weight gain. He denies lightheadedness, dizziness, near-syncope, or syncope. He denies blood in urine, blood in stool, or epistaxis. He denies fever with chills. He denies myalgia. He denies fatigue. His exercise level has remained stable. Intake Vital Signs 08/13/24 08:57 08/18/24 13:35 Height 5 ft 11 in 5 ft 11 in Weight: 198 lb 184 lb BMI 27.6 25.7 BP 157/81 H 128/72 H Blood Pressure Location Lt brachial Lt brachial Position Sitting Sitting Respiration 18 18 Pulse 76 84 Pulse Source NIBP Monitor Pulse Oximetry (%) 93 94 Oxygen Delivery Method room air room air Intake Visit Reasons: REQUESTED BY JR Automotive Artist Required: No Accompanied by: Is patient in pain?: No Allergies No Known Allergies Allergy (Verified 08/18/24 13:37) Medications ???Medication ???Instructions ???Recorded ???Confirmed ???Type aspirin 81 mg chewable tablet 81 mg PO DAILY@0800 04/18/14 08/18/24 History nitroglycerin 0.4 mg sublingual 0.4 mg sublingual Q5M PRN Chest 04/18/14 08/18/24 History tablet Pain dutasteride 0.5 mg capsule 0.5 mg PO DAILY 04/16/18 08/18/24 History pravastatin 80 mg tablet 80 mg PO QHS #90 tabs 02/20/20 08/18/24 Rx cholecalciferol (vitamin D3) 25 25 mcg PO DAILY 01/05/22 08/18/24 History mcg (1,000 unit) capsule apixaban 5 mg tablet (Eliquis) 5 mg PO BID #60 tabs 02/25/24 08/18/24 Rx esomeprazole magnesium 40 mg 40 mg PO DAILY #90 caps 03/17/24 08/18/24 Rx capsule,delayed release finerenone 10 mg tablet (Kerendia) 10 mg PO QDAY 07/29/24 08/18/24 History potassium chloride 20 mEq 20 meq PO .COMPLEX #90 tabs 08/11/24 08/18/24 Rx tablet,extended release cyanocobalamin (vitamin B-12) 1,000 mcg PO QDAY 08/13/24 08/18/24 History 1,000 mcg tablet dapagliflozin propanediol 10 mg 10 mg PO DAILY #30 tabs 08/13/24 08/18/24 Rx tablet (Farxiga) furosemide 40 mg tablet (Lasix) 80 mg (2 x 40 mg) PO BID #180 tabs 08/13/24 08/18/24 Rx losartan 100 mg tablet 100 mg PO QDAY 08/13/24 08/18/24 History doxycycline hyclate 100 mg capsule 100 mg PO BID 7 days #14 caps 08/14/24 08/18/24 Rx Have you fallen in the past year?: No PFSH Medical History Edema Skin tear of left forearm without complication Left foot infection Tick bite of abdominal wall (11/28/21) Persistent atrial fibrillation Sick sinus syndrome Sinus pause Nonrheumatic aortic (valve) stenosis with insufficiency Chronic diastolic (congestive) heart failure Stenosis of left carotid artery Pure hypercholesterolemia Dyspnea on exertion Secondary pulmonary arterial hypertension Nonrheumatic aortic valve insufficiency Non-rheumatic tricuspid valve insufficiency Dizziness and giddiness Pulmonary embolism Essential (primary) hypertension Atherosclerosis of coronary artery of [place] heart without angina pectoris Shortness of breath TIA (transient ischemic attack) Surgical History History of placement of leadless cardiac pacemaker History of skin graft History of hip replacement 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 Normal [facility] Comprehensive Metabolic Prof ilon 08-18-2024 Albumin [Mass/Vol] 4.0 g/dL Normal 3.2-5.0 [facility] Comment on above: Performed By: #### L 500.4050 #### [facility] [address] [facility] [place], [address] Albumin/Globulin [Mass ratio] 1.0 {ratio} Normal 0.9-2.4 [facility] Comment on above: Performed By: #### L 500.4050 #### [facility] [address] [place], [address] ALK P 108 U/L Normal 45-117 [facility] Comment on above: Performed By: #### L 500.4050 #### [facility] [address] [place], [address] ALT [Catalytic activity/Vol] 31 U/L Normal 16-61 [facility] Comment on above: Performed By: #### L 500.4050 #### [facility] [address] [facility] [place], [address] AST [Catalytic activity/Vol] 38 U/L High 15-37 [facility] Comment on above: Performed By: #### L 500.4050 #### [facility] [address] [place], [address] Bilirubin [Mass/Vol] 1.10 mg/dL High 0.20-1.00 [facility] Comment on above: Result Comment: For patients on eltrombopag therapy, use of Dimension [place] TBIL is not recommended. Performed By: #### L 500.4050 #### [facility] [address] [place], [address] BUN/CRE 14.6 RATIO Normal 10-20 [facility] Comment on above: Performed By: #### L 500.4050 #### [facility] [address] [place], [address] CA,Total 9.7 mg/dL Normal 8.5-10.1 [facility] Comment on above: Performed By: #### L 500.4050 #### [facility] [address] [place], [address] Chloride [Moles/Vol] 102 mmol/L Normal 98-107 [facility] Comment on above: Performed By: #### L 500.4050 #### [facility] [address] [place], [address] CO2 [Moles/Vol] 30.0 mmol/L Normal 21.0-32.0 [facility] Comment on above: Performed By: #### L 500.4050 #### [facility] [address] [place], [address] Creatinine [Mass/Vol] 1.03 mg/dL Normal 0.70-1.30 [facility] Comment on above: Result Comment: The validity of the calculated GFR GFRAA in patients over 70 years has not been determined. Clinical correlation is essential. Performed By: #### L 500.4050 #### [facility] [address] [place], [address] EST GFR - AA 88 mL/min Normal >60 [facility] Comment on above: Result Comment: Afri can [place] GFR Calc Performed By: #### L 500.4050 #### [facility] [address] [place], [address] GAP 7 Normal 5-15 [facility] Comment on above: Performed By: #### L 500.4050 #### [facility] [address] [place], [address] GFR/1.73 sq M.predicted among non-blacks MDRD (S/P/Bld) [Vol rate/Area] 73 mL/min/{1.73_m2} Normal >60 [facility] Comment on above: Result Comment: Non- GFR Calc Performed By: #### L 500.4050 #### [facility] [address] [place], [address] Globulin (S) [Mass/Vol] 4.0 g/dL Normal 2.2-4.2 [facility] Comment on above: Performed By: #### L 500.4050 #### [facility] [address] [place], [address] Glucose [Mass/Vol] 127 mg/dL High 74-106 [facility] Comment on above: Result Comment: Fast ing Glucose result greater than or equal to 126 mg/dL suggests DIABETES MELLITUS per A.D.A. criteria. Performed By: #### L 500.4050 #### [facility] [address] [place], [address] Potassium [Moles/Vol] 3.5 mmol/L Normal 3.5-5.1 [facility] Comment on above: Performed By: #### L 500.4050 #### [facility] [address] [place], [address] Sodium [Moles/Vol] 139 mmol/L Normal 136-145 [facility] Comment on above: Performed By: #### L 500.4050 #### [facility] [address] [place], [place], [address] T PROT 8.0 g/dL Normal 6.4-8.2 [facility] Comment on above: Performed By: #### L 500.4050 #### [facility] [address] [place], [place], [address] Urea nitrogen [Mass/Vol] 15 mg/dL Normal 7-18 [facility] Comment on above: Performed By: #### L 500.4050 #### [facility] [address] [place], [address] 12 Lead EKG performed by [facility] [place] on 08-13-2024 12 Lead EKG performed by [facility] [address] [place] [address] 12 Lead EKG performed by [facility] [place] 08/13/24 0949 MR#: [id number] Acct: [id number] Name: REMY BLACKBURN Rep #: [id number] : 1940 84 From: Arnie Youssef DISTRICT OPERATIONS MANAGER DISTRICT OPERATIONS MANAGER-C Attending Dr: Arnie Youssef, DISTRICT OPERATIONS MANAGER-C Status: DEP AMB Ordering Dr: Arnie Youssef DISTRICT OPERATIONS MANAGER DISTRICT OPERATIONS MANAGER-C Date: 08/13/24 Location: [facility] [place] Sex: M C Admitted: BMS/12 Lead EKG performed by [facility] [place] ECG Report Interpretation -Atrial fibrillation Low voltage in limb leads. -Poor R-wave progression -may be secondary to pulmonary disease consider old anterior infarct. -Nonspecific ST depression + Nonspecific T-abnormality -Nondiagnostic. ABNORMAL Electronically signed on 08/18/2024 at 08:29 by Benito Diaz Software Version [id number] 08/18/2433 Date Arnie Youssef NP DISTRICT OPERATIONS MANAGER-C CC: Dr. Laura Rodriguez, Date Dictated: 08/13/2449 Date Transcribed: 08/13/24948 Plumber And Tinner: FORTINO Signed Normal [facility] Cardiology Visit Reporton Cardiology Visit Report [facility] [address] [place] [address] OFFICE VISIT Date of Service: 08/13/24 MR#: [id number] Acct: [id number] Name: REMY BLACKBURN Rep #: [id number] : 1940 Provider: DASH lam Age/Sex: 84/M Location: [facility] [place] Status: Signed HPI HPI History of Present Illness Details: REMY BLACKBURN, is a 84 M who presents to the office today for a cardiovascular followup. He has a history of coronary artery disease with bypass surgery in 2000. He did have a left internal mammary artery to the left anterior descending artery and diagonal as a sequential graft, radial graft to the obtuse marginal branch, and saphenous vein graft to the right coronary artery. He also has a history of hypertension, hyperlipidemia, left carotid stenosis estimated at 50 to 70%. He presents for follow-up visit. The patient had evidence of paroxysmal atrial fibrillation with significant pauses noted his beta-loly was discontinued and he had placement of a Micra device in March 2021. He says that he has gained some weight and has some shortness of breath with activity. He denies chest, arm, jaw, or neck discomfort. He denies palpitations. He denies bilateral lower extremity edema. He denies claudication. He states chronic shortness of breath with activity that has worsened over the last 6-8 weeks. He denies shortness of breath at rest. He states orthopnea. He denies PND. He denies chronic cough. He denies significant, sudden weight gain. He denies lightheadedness, dizziness, near-syncope, or syncope. He denies blood in urine, blood in stool, or epistaxis. He denies fever with chills. He denies myalgia. He denies fatigue. His exercise level has remained stable. Intake Vital Signs 07/17/24 11:03 08/13/24 08:57 Height 5 ft 11 in 5 ft 11 in Weight: 198 lb BMI 27.6 BP 157/81 H Blood Pressure Location Lt brachial Position Sitting Respiration 18 Pulse 76 Pulse Source NIBP Pulse Oximetry (%) 93 Oxygen Delivery Method room air Intake Visit Reasons: PER ARNIE: [facility] Automotive Artist Required: No Accompanied by: Is patient in pain?: No Allergies No Known Allergies Allergy (Verified 08/13/24 09:34) Medications ???Medication ???Instructions ???Recorded ???Confirmed ???Type aspirin 81 mg chewable tablet 81 mg PO DAILY@0800 04/18/14 08/13/24 History nitroglycerin 0.4 mg sublingual 0.4 mg sublingual Q5M PRN Chest 04/18/14 08/13/24 History tablet Pain dutasteride 0.5 mg capsule 0.5 mg PO DAILY 04/16/18 08/13/24 History pravastatin 80 mg tablet 80 mg PO QHS #90 tabs 02/20/20 08/13/24 Rx cholecalciferol (vitamin D3) 25 25 mcg PO DAILY 01/05/22 08/13/24 History mcg (1,000 unit) capsule apixaban 5 mg tablet (Eliquis) 5 mg PO BID #60 tabs 02/25/24 08/13/24 Rx esomeprazole magnesium 40 mg 40 mg PO DAILY #90 caps 03/17/24 08/13/24 Rx capsule,delayed release finerenone 10 mg tablet (Kerendia) 10 mg PO QDAY 07/29/24 08/13/24 History potassium chloride 20 mEq 20 meq PO .COMPLEX #90 tabs 08/11/24 08/13/24 Rx tablet,extended release cyanocobalamin (vitamin B-12) 1,000 mcg PO QDAY 08/13/24 08/13/24 History 1,000 mcg tablet dapagliflozin propanediol 10 mg 10 mg PO DAILY #30 tabs 08/13/24 08/13/24 Rx tablet (Farxiga) furosemide 40 mg tablet (Lasix) 80 mg (2 x 40 mg) PO BID #180 tabs 08/13/24 08/13/24 Rx losartan 100 mg tablet 100 mg PO QDAY 08/13/24 History Ejection fraction %: 55 Have you fallen in the past year?: No PFSH Medical History Edema Skin tear of left forearm without complication Left foot infection Tick bite of abdominal wall (05/02/22) Persistent atrial fibrillation Sick sinus syndrome Sinus pause Nonrheumatic aortic (valve) stenosis with insufficiency Chronic diastolic (congestive) heart failure Stenosis of left carotid artery Pure hypercholesterolemia Dyspnea on exertion Secondary pulmonary arterial hypertension Nonrheumatic aortic valve insufficiency Non-rheumatic tricuspid valve insufficiency Dizziness and giddiness Pulmonary embolism Essential (primary) hypertension Atherosclerosis of coronary artery of [place] heart without angina pectoris Shortness of breath TIA (transient ischemic attack) Surgical History History of placement of leadless cardiac pacemaker History of skin graft History of hip replacement 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 Normal [facility] Chest PA and Lateralon 08-13 Chest PA and Lateral [facility] [address] [place] [address] [id number] Chest PA and Lateral MR#: [id number] Acct: [id number] Name: REMY BLACKBURN Rep #: [id number] : 1940 M 84 From: Fredy bennett MD PCP: Dr. Laura Rodriguez, DO Status: REG CLI Study: Chest PA and Lateral Date of Exam: 08/13/24 Exam# [id number] Ordering Dr: Arnie Youssef DISTRICT OPERATIONS MANAGER DISTRICT OPERATIONS MANAGER-C [id number] STUDY: X-RAY CHEST REASON FOR EXAM: Male, 84 years old. SOB -- re-evaluate effusions TECHNIQUE: Frontal and lateral views of the chest. COMPARISON: 07/28/2024. FINDINGS: No definite change. Again seen are pulmonary opacities in both lung bases consistent with atelectasis or infiltrate with small pleural effusions. Normal heart size, previous CABG. Bones and soft tissues grossly negative. RAD/Chest PA and Lateral IMPRESSION: No definite change. Atelectasis or infiltrate in the lung bases with pleural effusions. Electronically Signed: Fredy Peraza MD at 21:02 EST , CC: DAHS Youssef; Dr. Laura Rodriguez DO Plumber And Tinner: Signed Normal [facility] BNP,B-Type NATRIURETIC PEPTI Lillian 07-28-2024 Natriuretic peptide B (Bld) [Mass/Vol] 628.1 pg/mL High 0-100 [facility] Comment on above: Order Comment: Comme nts: Please do on blood already drawn today Performed By: #### L 503.6620 #### [facility] [address] [place], [address] CBC W/Diff, Automatedon 12-3 0-2023 Absolute Lymph 1.33 X10 3/uL Normal 0.83-4.51 [facility] Comment on above: Performed By: #### L 500.4050, L100.0100 #### [facility] [address] [place], [address] Absolute Neut 3.0 X10 3/uL Normal 2.0-7.7 [facility] Comment on above: Performed By: #### L 500.4050, L100.0100 #### [facility] [address] [place], [address] Basophils/100 WBC (Bld) 0.8 % Normal 0-1 [facility] Comment on above: Performed By: #### L 500.4050, L100.0100 #### [facility] [address] [place], [address] Eosinophils/100 WBC (Bld) 3.5 % Normal 0-5 [facility] Comment on above: Performed By: #### L 500.4050, L100.0100 #### [facility] [address] [place], [address] Erythrocyte distribution width (RBC) [Ratio] 14.4 % Normal 11.6-14.6 [facility] Comment on above: Performed By: #### L 500.4050, L100.0100 #### [facility] [address] [place], [address] Hematocrit (Bld) [Volume fraction] 33.8 % Low 40-54 [facility] Comment on above: Performed By: #### L 500.4050, L100.0100 #### [facility] [address] [place], [address] Hemoglobin (Bld) [Mass/Vol] 11.1 g/dL Low 13.0-16.5 [facility] Comment on above: Performed By: #### L 500.4050, L100.0100 #### [facility] [address] [place], [address] IG% 0.200 Normal 0.0-0.9 [facility] Comment on above: Result Comment: IG% - Immature Granulocytes (promyelocytes, myelocytes and metamyelocytes) > 1% indicates that a LEFT SHIFT is Present. Performed By: #### L 500.4050, L100.0100 #### [facility] [address] [place], [address] Lymphocytes/100 WBC (Bld) 25.9 % Normal 19-41 [facility] Comment on above: Performed By: #### L 500.4050, L100.0100 #### [facility] [address] [place], [address] MCH (RBC) [Entitic mass] 28.9 pg Normal 27.0-32.0 [facility] Comment on above: Performed By: #### L 500.4050, L100.0100 #### [facility] [address] [place], [address] MCHC (RBC) [Mass/Vol] 32.8 g/dL Normal 32-36 [facility] Comment on above: Performed By: #### L 500.4050, L100.0100 #### [facility] [address] [place], [address] MCV (RBC) [Entitic vol] 88.0 fL Normal 80-94 [facility] Comment on above: Performed By: #### L 500.4050, L100.0100 #### [facility] [address] [place], [address] Monocytes/100 WBC (Bld) 11.1 % High 0-10 [facility] Comment on above: Performed By: #### L 500.4050, L100.0100 #### [facility] [address] [place], [address] Neutrophils/100 WBC (Bld) 58.5 % Normal 47-70 [facility] Comment on above: Performed By: #### L 500.4050, L100.0100 #### [facility] [address] [place], [address] Nucleated RBC (Bld) [#/Vol] 0 10*3/uL Normal 0-5 [facility] Comment on above: Performed By: #### L 500.4050, L100.0100 #### [facility] [address] [place], [address] Platelet mean volume (Bld) [Entitic vol] 9.6 fL Normal 6.2-12.0 [facility] Comment on above: Performed By: #### L 500.4050, L100.0100 #### [facility] [address] [place], [address] Platelets (Bld) [#/Vol] 291 10*3/uL Normal 150-450 [facility] Comment on above: Performed By: #### L 500.4050, L100.0100 #### [facility] [address] [place], [address] RBC (Bld) [#/Vol] 3.84 10*6/uL Low 4.6-6.2 [facility] Comment on above: Performed By: #### L 500.4050, L100.0100 #### [facility] [address] [place], [address] RDW SD 46.4 fl High 35.1-43.9 [facility] Comment on above: Performed By: #### L 500.4050, L100.0100 #### [facility] [address] [place], [address] WBC (Bld) [#/Vol] 5.1 10*3/uL Normal 4.4-11.0 [facility] Comment on above: Performed By: #### L 500.4050, L100.0100 #### [facility] [address] [place], [address] Chest PA and Lateralon 07-28 Chest PA and Lateral [facility] [address] [place] [address] Chest PA and Lateral MR#: [id number] Acct: [id number] Name: REMY BLACKBURN Rep #: [id number] : 1940 M 84 From: Valentin Hammer MD PCP: Dr. Laura Rodriguez, DO Status: REG CLI Study: Chest PA and Lateral Date of Exam: 07/28/24 Exam# [id number] Ordering Dr: Arnie Youssef NP DISTRICT OPERATIONS MANAGER-C [id number] STUDY: X-RAY CHEST REASON FOR EXAM: Male, 84 years old. Shortness of breath, cough, edema TECHNIQUE: PA and lateral views of the chest. COMPARISON: 04/07/2021 FINDINGS: Status post median sternotomy. The lungs are clear and expanded. Small bilateral pleural effusions. Normal size heart. Normal mediastinum and susie. Normal visualized pulmonary arteries. Normal visualized aortic arch and descending thoracic aorta. Normal visualized thoracic spine. Normal visualized ribs, clavicles, and shoulders. There is no demonstrated abnormality of the visualized soft tissue structures of the upper abdomen. RAD/Chest PA and Lateral IMPRESSION: Small bilateral pleural effusions. Electronically Signed: Valentin Hammer MD at 12:02 EST , CC: DASH Youssef; Dr. Laura Rodriguez DO Plumber And Tinner: Signed Normal [facility] Comprehensive Metabolic Prof suha 07-28-2024 Albumin [Mass/Vol] 3.6 g/dL Normal 3.2-5.0 [facility] Comment on above: Performed By: #### L 500.4050, L100.0100 #### [facility] [address] [place], [place], [id number] Albumin/Globulin [Mass ratio] 1.0 {ratio} Normal 0.9-2.4 [facility] Comment on above: Performed By: #### L 500.4050, L100.0100 #### [facility] [address] [place], [place], [id number] ALK P 87 U/L Normal 45-117 [facility] Comment on above: Performed By: #### L 500.4050, L100.0100 #### [facility] [address] [place], [address] ALT [Catalytic activity/Vol] 24 U/L Normal 16-61 [facility] Comment on above: Performed By: #### L 500.4050, L100.0100 #### [facility] [address] [place], [address] AST [Catalytic activity/Vol] 30 U/L Normal 15-37 [facility] Comment on above: Performed By: #### L 500.4050, L100.0100 #### [facility] [address] [place], [address] Bilirubin [Mass/Vol] 1.50 mg/dL High 0.20-1.00 [facility] Comment on above: Result Comment: For patients on eltrombopag therapy, use of Dimension [place] TBIL is not recommended. Performed By: #### L 500.4050, L100.0100 #### [facility] [address] [place], [address] BUN/CRE 19.3 RATIO Normal 10-20 [facility] Comment on above: Performed By: #### L 500.4050, L100.0100 #### [facility] [address] [place], [address] CA,Total 9.4 mg/dL Normal 8.5-10.1 [facility] Comment on above: Performed By: #### L 500.4050, L100.0100 #### [facility] [address] [place], [address] Chloride [Moles/Vol] 107 mmol/L Normal 98-107 [facility] Comment on above: Performed By: #### L 500.4050, L100.0100 #### [facility] [address] [place], [address] CO2 [Moles/Vol] 29.0 mmol/L Normal 21.0-32.0 [facility] Comment on above: Performed By: #### L 500.4050, L100.0100 #### [facility] [address] [place], [address] Creatinine [Mass/Vol] 0.93 mg/dL Normal 0.70-1.30 [facility] Comment on above: Result Comment: The validity of the calculated GFR GFRAA in patients over 70 years has not been determined. Clinical correlation is essential. Performed By: #### L 500.4050, L100.0100 #### [facility] [address] [place], [address] EST GFR - AA 99 mL/min Normal >60 [facility] Comment on above: Result Comment: Afri can [place]ik GFR Calc Performed By: #### L 500.4050, L100.0100 #### [facility] [address] [place], [address] GAP 5 Normal 5-15 [facility] Comment on above: Performed By: #### L 500.4050, L100.0100 #### [facility] [address] [place], [address] GFR/1.73 sq M.predicted among non-blacks MDRD (S/P/Bld) [Vol rate/Area] 82 mL/min/{1.73_m2} Normal >60 [facility] Comment on above: Result Comment: Non- GFR Calc Performed By: #### L 500.4050, L100.0100 #### [facility] [address] [place], [address] Globulin (S) [Mass/Vol] 3.7 g/dL Normal 2.2-4.2 [facility] Comment on above: Performed By: #### L 500.4050, L100.0100 #### [facility] [address] [place], [address] Glucose [Mass/Vol] 103 mg/dL Normal 74-106 [facility] Comment on above: Result Comment: Fast ing Glucose result from 100 to 125 mg/dL suggests IMPAIRED HOMEOSTASIS per A.D.A. criteria. Performed By: #### L 500.4050, L100.0100 #### [facility] [address] [place], [address] Potassium [Moles/Vol] 3.1 mmol/L Low 3.5-5.1 [facility] Comment on above: Performed By: #### L 500.4050, L100.0100 #### [facility] [address] [place], [address] Sodium [Moles/Vol] 140 mmol/L Normal 136-145 [facility] Comment on above: Performed By: #### L 500.4050, L100.0100 #### [facility] [address] [place], [address] T PROT 7.3 g/dL Normal 6.4-8.2 [facility] Comment on above: Performed By: #### L 500.4050, L100.0100 #### [facility] [address] [place], [address] Urea nitrogen [Mass/Vol] 18 mg/dL Normal 7-18 [facility] Comment on above: Performed By: #### L 500.4050, L100.0100 #### [facility] [address] [place], [address] Cardiology Visit Reporton Cardiology Visit Report [facility] [address] [place] [address] OFFICE VISIT Date of Service: 07/17/24 MR#: [id number] Acct: [id number] Name: REMY BLACKBURN Rep #: [id number] : 1940 Provider: Dr. Benito Diaz MD Age/Sex: 84/M Location: [facility] Status: Signed HPI HPI History of Present Illness Details: REMY BLACKBURN, is a 84 M who presents to the office today for a cardiovascular followup. He has a history of coronary artery disease with bypass surgery in 2000. He did have a left internal mammary artery to the left anterior descending artery and diagonal as a sequential graft, radial graft to the obtuse marginal branch, and saphenous vein graft to the right coronary artery. He also has a history of hypertension, hyperlipidemia, left carotid stenosis estimated at 50 to 70%. He presents for follow-up visit. The patient had evidence of paroxysmal atrial fibrillation with significant pauses noted his beta-loly was discontinued and he had placement of a Micra device in March 2021. He says that he has gained some weight and has some shortness of breath with activity. He denies chest, arm, jaw, or neck discomfort. He denies palpitations. He denies bilateral lower extremity edema. He denies claudication. He denies shortness of breath with activity, shortness of breath at rest, orthopnea, or PND. He denies chronic cough. He denies significant, sudden weight gain. He denies lightheadedness, dizziness, near-syncope, or syncope. He denies blood in urine, blood in stool, or epistaxis. He denies fever with chills. He denies myalgia. He denies fatigue. His exercise level has remained stable. Intake Vital Signs 05/24/23 13:57 10/25/23 10:55 07/17/24 11:03 Height 6 ft 5 ft 11 in 5 ft 11 in Weight: 198 lb BMI 27.6 BP 135/70 H Blood Pressure Location Lt brachial Position Sitting Respiration 16 Pulse 71 Pulse Source Monitor Intake Visit Reasons: 1 Y FU PPM f/u @ 10:30AM Automotive Artist Required: No Accompanied by: Significant Other Is patient in pain?: No Allergies No Known Allergies Allergy (Verified 07/17/24 11:11) Medications ???Medication ???Instructions ???Recorded ???Confirmed ???Type aspirin 81 mg chewable tablet 81 mg PO DAILY@0800 04/18/14 07/17/24 History nitroglycerin 0.4 mg sublingual 0.4 mg sublingual Q5M PRN Chest 04/18/14 07/17/24 History tablet Pain dutasteride 0.5 mg capsule 0.5 mg PO DAILY 04/16/18 07/17/24 History pravastatin 80 mg tablet 80 mg PO QHS #90 tabs 02/20/20 07/17/24 Rx cholecalciferol (vitamin D3) 25 25 mcg PO DAILY 01/05/22 07/17/24 History mcg (1,000 unit) capsule losartan 100 mg tablet See Rx Instructions .Route 09/21/23 07/17/24 Rx .COMPLEX #90 tabs apixaban 5 mg tablet (Eliquis) 5 mg PO BID #60 tabs 02/25/24 07/17/24 Rx esomeprazole magnesium 40 mg 40 mg PO DAILY #90 caps 03/17/24 07/17/24 Rx capsule,delayed release benzonatate 200 mg capsule 200 mg PO TID PRN cough #20 caps 04/07/24 07/17/24 Rx furosemide 40 mg tablet (Lasix) 40 mg PO QAM #90 tabs 07/17/24 07/17/24 Rx Have you fallen in the past year?: No PFSH Medical History Skin tear of left forearm without complication Left foot infection Tick bite of abdominal wall (11/28/21) Persistent atrial fibrillation Sick sinus syndrome Sinus pause Nonrheumatic aortic (valve) stenosis with insufficiency Chronic diastolic (congestive) heart failure Stenosis of left carotid artery Pure hypercholesterolemia Dyspnea on exertion Secondary pulmonary arterial hypertension Nonrheumatic aortic valve insufficiency Non-rheumatic tricuspid valve insufficiency Dizziness and giddiness Pulmonary embolism Edema Essential (primary) hypertension Atherosclerosis of coronary artery of [place] heart without angina pectoris Shortness of breath TIA (transient ischemic attack) Surgical History History of placement of leadless cardiac pacemaker History of skin graft History of hip replacement 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 Normal [facility] Pacemaker Checkon 07-17-2024 Pacemaker Check [facility] [place] [facility] [place] [address] Pacemaker Check Date of Service: 07/17/24 1326 MR#: [id number] Acct: [id number] Name: REMY BLACKBURN Rep #: [id number] : 1940 From: Danielle Rendon Age/Sex: 84/M Location: [facility] [place] Status: Signed Billing Codes Leadless Device Check: 54115 PM Dev Prog Eval, Single Assessment and Plan Assessment and Plan (1) History of placement of leadless cardiac pacemaker: Status: Chronic (2) Persistent atrial fibrillation: Status: Chronic (3) Sick sinus syndrome: Status: Acute 07/17/24 1331 Date Danielle Mcnealignro Signature: Date (if applicable) CC: Normal [facility] No Panel Informationon 06-18 Influenza Types A,B Rapid (Clinic) Negative [facility] POC SARS CoV-2 Antigen Negative [facility] CBC with auto diff (22630)Or dered By: Machine Lay Out Worker on 07-20-2020 Basophils (Bld) [#/Vol] 0.1 {x10E3/uL} Normal 0.0-0.2 [facility] Work Phone: Comment on above: PATIENT WAS FASTINGP ERFORMED BY: GUS [facility] [id number] [facility] [id number] Basophils (Bld) [#/Vol] 0.1 10*3/uL Normal 0.0-0.2 [facility]; [facility] Work Phone: Basophils/100 WBC (Bld) 1 % Normal [facility] Work Phone: Comment on above: PATIENT WAS FASTINGP ERFORMED BY: GUS Luci [id number] [facility] [id number] Eosinophils (Bld) [#/Vol] 0.2 {x10E3/uL} Normal 0.0-0.4 [facility]; [facility] Work Phone: Comment on above: PATIENT WAS FASTINGP ERFORMED BY: GUS MarcelinaSaint John'S Health System Cpnysr7489 [facility] [id number] Eosinophils (Bld) [#/Vol] 0.2 10*3/uL Normal 0.0-0.4 [facility]; [facility] Work Phone: Eosinophils/100 WBC (Bld) 4 % Normal [facility]; [facility] Work Phone: Comment on above: PATIENT WAS FASTINGP ERFORMED BY: GUS Luci Xrmjph6463 [facility] [id number] Erythrocyte distribution width (RBC) [Ratio] 13.0 % Normal 11.6-15.4 [facility]; [facility] Work Phone: Comment on above: PATIENT WAS FASTINGP ERFORMED BY: MarcelinaHarper University Hospital6370 [facility] [id number] Hematocrit (Bld) [Volume fraction] 39.5 % Normal 37.5-51.0 [facility]; [facility] Work Phone: Comment on above: PATIENT WAS FASTINGP ERFORMED BY: MarcelinaSaint John'S Health System Mcxnne2945 [facility] [id number] Hemoglobin (Bld) [Mass/Vol] 13.7 g/dL Normal 13.0-17.7 [facility]; [facility] Work Phone: Comment on above: PATIENT WAS FASTINGP ERFORMED BY: GUS LabCo Fxigqt9685 [facility] [place] [id number] Immature granulocytes (Bld) [#/Vol] 0.0 {x10E3/uL} Normal 0.0-0.1 [facility]; [facility] Work Phone: Comment on above: PATIENT WAS FASTINGP ERFORMED BY: GUS LabCo Xfgbkx[address] [facility] [id number] Immature granulocytes (Bld) [#/Vol] 0.0 10*3/uL Normal 0.0-0.1 [facility]; [facility] Work Phone: Immature granulocytes/100 WBC (Bld) 0 % Normal [facility]; [facility] Work Phone: Comment on above: PATIENT WAS FASTINGP ERFORMED BY: GUS LabSaint John'S Health System Lrkrfh[address] [facility] [id number] Lymphocytes (Bld) [#/Vol] 1.1 {x10E3/uL} Normal 0.7-3.1 [facility]; [facility] Work Phone: Comment on above: PATIENT WAS FASTINGP ERFORMED BY: GUS LabSaint John'S Health System Eomjdm[address] [facility] [id number] Lymphocytes (Bld) [#/Vol] 1.1 10*3/uL Normal 0.7-3.1 [facility]; [facility] Work Phone: Lymphocytes/100 WBC (Bld) 24 % Normal [facility]; [facility] Work Phone: Comment on above: PATIENT WAS FASTINGP ERFORMED BY: GUS [facility] Zyeedy7045 [facility] [place] [id number] MCH (RBC) [Entitic mass] 31.1 pg Normal 26.6-33.0 [facility]; [facility] Work Phone: Comment on above: PATIENT WAS FASTINGP ERFORMED BY: GUS [facility] Cduncz[address] [facility] [id number] MCHC (RBC) [Mass/Vol] 34.7 g/dL Normal 31.5-35.7 [facility] prehensive Internal Medicine; [facility] Work Phone: Comment on above: PATIENT WAS FASTINGP ERFORMED BY: GUS Gia Mo6370 [facility] [id number] MCV (RBC) [Entitic vol] 90 fL Normal 79-97 [facility]; [facility] Work Phone: Comment on above: PATIENT WAS FASTINGP ERFORMED BY: GUS LabCo Daszqd2221 [facility] [id number] Monocytes (Bld) [#/Vol] 0.5 {x10E3/uL} Normal 0.1-0.9 [facility]; [facility] Work Phone: Comment on above: PATIENT WAS FASTINGP ERFORMED BY: GUS Joaquinlin6370 [facility] [id number] Monocytes (Bld) [#/Vol] 0.5 10*3/uL Normal 0.1-0.9 [facility]; [facility] Work Phone: Monocytes/100 WBC (Bld) 11 % Normal [facility]; [facility] Work Phone: Comment on above: PATIENT WAS FASTINGP ERFORMED BY: GUS MarcelinaDayana JoaquinIyuxqt6031 [facility] [id number] Neutrophils (Bld) [#/Vol] 2.8 {x10E3/uL} Normal 1.4-7.0 [facility]; [facility] Work Phone: Comment on above: PATIENT WAS FASTINGP ERFORMED BY: GUS LabSaint John'S Health System Keyefu9702 [facility] [place] [id number] Neutrophils (Bld) [#/Vol] 2.8 10*3/uL Normal 1.4-7.0 [facility]; [facility] Work Phone: Neutrophils/100 WBC (Bld) 60 % Normal [facility]; [facility] Work Phone: Comment on above: PATIENT WAS FASTINGP ERFORMED BY: GUS Luci Bfwiks9445 [facility] [id number] Platelets (Bld) [#/Vol] 259 {x10E3/uL} Normal 150-450 [facility]; [facility] Work Phone: Comment on above: PATIENT WAS FASTINGP ERFORMED BY: GUS Luci Gkjrbh5048 [facility] [id number] Platelets (Bld) [#/Vol] 259 10*3/uL Normal 150-450 [facility]; [facility] Work Phone: RBC (Bld) [#/Vol] 4.40 {x10E6/uL} Normal 4.14-5.80 [facility] Internal Medicine; [facility] Work Phone: Comment on above: PATIENT WAS FASTINGP ERFORMED BY: GUS Luci Elazus7920 [facility] [id number] RBC (Bld) [#/Vol] 4.40 10*6/uL Normal 4.14-5.80 [facility] Internal Medicine; [facility] Work Phone: WBC (Bld) [#/Vol] 4.6 {x10E3/uL} Normal 3.4-10.8 [facility] Internal Medicine; [facility] Work Phone: Comment on above: PATIENT WAS FASTINGP ERFORMED BY: GUS Luci Kzsldv0770 [facility] [id number] WBC (Bld) [#/Vol] 4.6 10*3/uL Normal 3.4-10.8 [facility] Internal Medicine; [facility] Work Phone: LIPID PANEL ([id number])Ordered B y: Machine Lay Out Worker on 07-20-2020 Cholesterol [Mass/Vol] 178 mg/dL Normal 100-199 [facility]; [facility] Work Phone: Comment on above: PATIENT WAS FASTINGP ERFORMED BY: GUS MarcelinaSaint John'S Health System Yobaeo9492 [facility] [id number] Cholesterol in HDL [Mass/Vol] 34 mg/dL Abnormal [facility]; [facility] Work Phone: Comment on above: PATIENT WAS FASTINGP ERFORMED BY: GUS LabDayana Lsmcqz4988 [facility] [id number] Cholesterol in LDL/Cholesterol in HDL [Mass ratio] 3.5 {ratio} Normal 0.0-3.6 [facility]; [facility] Work Phone: Comment on above: LDL/HDL Ratio Men Wo men 1/2 Avg.Risk 1.0 1.5 Avg.Risk 3.6 3.2 2X Avg.Risk 6.2 5.0 3X Avg.Risk 8.0 6.1 PATIENT WAS FASTINGP ERFORMED BY: GUS LabCosinai JoaquinIvgzwc3380 [facility] [id number] Triglyceride [Mass/Vol] 138 mg/dL Normal 0-149 [facility]; [facility] Work Phone: Comment on above: PATIENT WAS FASTINGP ERFORMED BY: GUS LabDayana JoaquinRcipou4596 [facility] [id number] LIPID PANEL (04022) 25 mg/dL Normal 5-40 [facility]; [facility] Work Phone: Comment on above: PATIENT WAS FASTINGP ERFORMED BY: GUS LabCosinai Hvutjj6767 [facility] [id number] LIPID PANEL (81995) 119 mg/dL Abnormal 0-99 [facility]; [facility] Work Phone: Comment on above: PATIENT WAS FASTINGP ERFORMED BY: GUS LabCo Jhwtej6034 [facility] [id number] LIPID PANEL (32702) 3.5 {ratio} Normal 0.0-3.6 [facility] Internal Medicine; [facility] Work Phone: METABOLIC PANEL, COMPREHENSI VE ([id number])Ordered By: Machine Lay Out Worker on 07-20-2020 Albumin [Mass/Vol] 4.3 g/dL Normal 3.6-4.6 [facility] Internal [facility]; [facility] Work Phone: Comment on above: PATIENT WAS FASTINGP ERFORMED BY: GUS LabCo Htqkvz9172 [address] RoadDublin [place] [id number] Albumin/Globulin [Mass ratio] 1.6 {ratio} Normal 1.2-2.2 [facility]; [facility] Work Phone: Comment on above: PATIENT WAS FASTINGP ERFORMED BY: GUS LabDayana Rrhrlp9436 [address] RoadDublin [place] [id number] ALP [Catalytic activity/Vol] 75 [iU]/L Normal 39-117 [facility]; [facility] Work Phone: Comment on above: PATIENT WAS FASTINGP ERFORMED BY: GUS LabCo Rrcvtl4871 [address] RoadDublin [place] [id number] ALP [Catalytic activity/Vol] 75 U/L Normal 39-117 [facility]; [facility] Work Phone: ALT [Catalytic activity/Vol] 24 [iU]/L Normal 0-44 [facility]; [facility] Work Phone: Comment on above: PATIENT WAS FASTINGP ERFORMED BY: LabCo Doxfhc2751 [address] RoadDublin [place] [id number] ALT [Catalytic activity/Vol] 24 U/L Normal 0-44 [facility]; [facility] Work Phone: AST [Catalytic activity/Vol] 38 [iU]/L Normal 0-40 [facility]; [facility] Work Phone: Comment on above: PATIENT WAS FASTINGP ERFORMED BY: LabCo Yqagaf6191 [address] RoadDublin [place] [id number] AST [Catalytic activity/Vol] 38 U/L Normal 0-40 [facility]; [facility] Work Phone: Bilirubin [Mass/Vol] 1.1 mg/dL Normal 0.0-1.2 [facility]; [facility] Work Phone: Comment on above: PATIENT WAS FASTINGP ERFORMED BY: GUS [facility] Cgnvdh0661 [address] RoadDublin [place] [id number] Calcium [Mass/Vol] 9.7 mg/dL Normal 8.6-10.2 Compre [facility] Internal [facility]; [facility] Work Phone: Comment on above: PATIENT WAS FASTINGP ERFORMED BY: CB [facility] Gfuywg1057 [address] RoadDublin [place] [id number] Chloride [Moles/Vol] 102 mmol/L Normal 96-106 Comp rehensive Internal Medicine; [facility] Work Phone: Comment on above: PATIENT WAS FASTINGP ERFORMED BY: CB [facility] Coytvt3502 [address] RoadDublin [place] [id number] CO2 [Moles/Vol] 20 mmol/L Normal 20-29 [facility] Internal Medicine; [facility] Work Phone: Comment on above: PATIENT WAS FASTINGP ERFORMED BY: CB [facility] Lfaxjq1742 [address] RoadDublin [place] [id number] Creatinine [Mass/Vol] 0.76 mg/dL Normal 0.76-1.27 [facility]; [facility] Work Phone: Comment on above: PATIENT WAS FASTINGP ERFORMED BY: CB [facility] Hrudln6773 [address] RoadDublin [place] [id number] GFR/1.73 sq M predicted among blacks CKD-EPI (S/P/Bld) [Vol rate/Area] 99 mL/min/1.73 Normal [facility]; [facility] Work Phone: Comment on above: PATIENT WAS FASTINGP ERFORMED BY: CB [facility] Jguqha4158 [address] RoadDublin [place] [id number] GFR/1.73 sq M predicted among non-blacks CKD-EPI (S/P/Bld) [Vol rate/Area] 86 mL/min/1.73 Normal [facility]; [facility] Work Phone: Comment on above: PATIENT WAS FASTINGP ERFORMED BY: CB [facility] Ysvmje8832 [address] RoadDublin [place] [id number] Globulin (S) [Mass/Vol] 2.7 g/dL Normal 1.5-4.5 [facility]; [facility] Work Phone: Comment on above: PATIENT WAS FASTINGP ERFORMED BY: CB LabSaint [facility]'S Health System Hhxdlj2478 [address] RoadDublin [place] [id number] Glucose [Mass/Vol] 118 mg/dL Abnormal 65-99 [facility] Internal Medicine; [facility] Work Phone: Comment on above: PATIENT WAS FASTINGP ERFORMED BY: LabCo Rsdfuh2958 [address] RoadDublin [place] [id number] Potassium [Moles/Vol] 4.5 mmol/L Normal 3.5-5.2 [facility] Internal Medicine; [facility] Work Phone: Comment on above: Specimen received he molyzed. Value may be increased by hemolysis.Clinical correlation indicated. PATIENT WAS FASTINGP ERFORMED BY: LabHarper [facility] Hospital6370 [address] RoadAtrium Health Cabarrusin [place] [id number] Protein [Mass/Vol] 7.0 g/dL Normal 6.0-8.5 [facility]; [facility] Work Phone: Comment on above: PATIENT WAS FASTINGP ERFORMED BY: LabHarper [facility] Hospital6370 [address] [facility] [place] [id number] Sodium [Moles/Vol] 138 mmol/L Normal 134-144 [facility] Internal [facility]; [facility] Work Phone: Comment on above: PATIENT WAS FASTINGP ERFORMED BY: LabSaint [facility]'S [facility] System Egjqgk1698 [address] RoadDublin [place] [id number] Urea nitrogen [Mass/Vol] 14 mg/dL Normal 8-27 [facility] Internal Medicine; [facility] Work Phone: Comment on above: PATIENT WAS FASTINGP ERFORMED BY: LabSaint John'S Health System Lpiiqm3217 [address] RoadDublin [place] [id number] Urea nitrogen/Creatinine [Mass ratio] 18 mg/mg Normal 10-24 [facility] Internal Medicine; [facility] Work Phone: Comment on above: PATIENT WAS FASTINGP ERFORMED BY: LabCo Qemdpg7658 [address] [facility] HospitalDublin [place] [id number] MICROALBUMINOrdered By: Syst em Network Solutions Architect on 07-20-2020 Albumin DL <= 20 mg/L (U) [Mass/Vol] 18.6 ug/mL Normal [facility]; [facility] Work Phone: Comment on above: PATIENT WAS FASTINGP ERFORMED BY: GUS Gia Mo6370 [address] RoadDublin [place] [id number] Albumin/Creatinine (U) [Mass ratio] 23 {mg/g_creat} Normal 0-29 [facility]; [facility] Work Phone: Comment on above: Normal: 0 - 29 Moder ately increased: 30 - 300 Severely increased: >300 PATIENT WAS FASTINGP ERFORMED BY: GUS [facility] Rodqqk3786 [address] RoadDublin [place] [id number] Creatinine (U) [Mass/Vol] 80.5 mg/dL Normal [facility]; [facility] Work Phone: Comment on above: PATIENT WAS FASTINGP ERFORMED BY: GUS Luci Fgyknk6351 [address] RoadAtrium Health Cabarrusin [place] [id number] TSH ([id number])Ordered By: [employer] m Network Solutions Architect on 07-20-2020 TSH Qn 2.210 {uIU/mL} Normal 0.450-4.50 0 [facility]; [facility] Work Phone: Comment on above: PATIENT WAS FASTINGP ERFORMED BY: GUS Gia Mo6370 [address] [facility] Hospitalblin [place] [id number] URINALYSIS, W/ MICRO ([id number]) Ordered By: Machine Lay Out Worker on 07-20-2020 Appearance (U) Clear Normal Comprehens yamileth Internal Medicine; [facility] Work Phone: Comment on above: PATIENT WAS FASTINGP ERFORMED BY: GUS [facility] Tndbqk2119 [address] RoadDublin [place] [id number] Bilirubin Ql (U) Negative Normal Comprehe nsive Internal Medicine; [facility] Work Phone: Comment on above: PATIENT WAS FASTINGP ERFORMED BY: GUS LabMaria Alejandrarp Pggxrl2611 [address] RoadDublin [place] [id number] Bilirubin Ql (U) Negative Normal Comprehe nsive Internal Medicine; [facility] Work Phone: Color (U) Yellow Normal [facility]; [facility] Work Phone: Comment on above: PATIENT WAS FASTINGP ERFORMED BY: GUS LabDayana Mo6370 [address] Roadblin [place] [id number] Glucose Ql (U) Negative Normal Comprehens yamileth Internal [facility]; [facility] Work Phone: Comment on above: PATIENT WAS FASTINGP ERFORMED BY: GUS [facility] Rdjine6621 [address] RoadAtrium Health Cabarrusin [place] [id number] Glucose Ql (U) Negative Normal Comprehens yamileth Internal [facility]; [facility] Work Phone: Hemoglobin Ql (U) Negative Normal Compreh ensive Internal Medicine; [facility] Work Phone: Comment on above: PATIENT WAS FASTINGP ERFORMED BY: GUS LabDayana JoaquinKkcish1815 [address] RoadAtrium Health Cabarrusin [place] [id number] Hemoglobin Ql (U) Negative Normal Compreh ensive Internal Medicine; [facility] Work Phone: Ketones Ql (U) Negative Normal Comprehens yamileth [facility]; [facility] Work Phone: Comment on above: PATIENT WAS FASTINGP ERFORMED BY: GUS LabMaria Alejandrasinai Xzyonz8319 [facility] [facility]in [place] [id number] Ketones Ql (U) Negative Normal Comprehens yamileth [facility]; [facility] Work Phone: Leukocyte esterase Test strip Ql (U) Negative Normal [facility]; [facility] Work Phone: Comment on above: PATIENT WAS FASTINGP ERFORMED BY: GUS LabMaria Alejandrarp Kqduon5652 [address] [facility]in [place] [id number] Leukocyte esterase Test strip Ql (U) Negative Normal [facility]; [facility] Work Phone: Microscopic observation LM Nom (Urine sed) MICRON Normal [facility]; [facility] Work Phone: Comment on above: Microscopic follows if indicated. PATIENT WAS FASTINGP ERFORMED BY: GUS [facility] Gviwxl4175 [address] RoadDublin [place] [id number] Microscopic observation LM Nom (Urine sed) See below: Normal [facility]; [facility] Work Phone: Comment on above: Microscopic was kylah cated and was performed. PATIENT WAS FASTINGP ERFORMED BY: GUS Lucisinai JoaquinZohpjl7289 [address] NeighborMDblin [place] [id number] Nitrite Ql (U) Negative Normal Comprehens yamileth Internal Medicine; [facility] Work Phone: Comment on above: PATIENT WAS FASTINGP ERFORMED BY: GUS LabDayana JoaquinDoqujg4695 [address] RoadDublin [place] [id number] Nitrite Ql (U) Negative Normal Comprehens yamileth [facility]; [facility] Work Phone: pH (U) 7.0 [pH] Normal 5.0-7.5 [facility]; [facility] Work Phone: Comment on above: PATIENT WAS FASTINGP ERFORMED BY: GUS Joaquinlin6370 [address] [facility] [place] [id number] Protein Ql (U) Negative Normal Comprehens yamileth [facility]; [facility] Work Phone: Comment on above: PATIENT WAS FASTINGP ERFORMED BY: GUS LabDayana JoaquinIleknn7256 [address] Gymtrackin [place] [id number] Protein Ql (U) Negative Normal Comprehens yamileth [facility]; [facility] Work Phone: Specific gravity (U) [Rel density] 1.016 1 Normal 1.005-1.03 0 [facility]; [facility] Work Phone: Comment on above: PATIENT WAS FASTINGP ERFORMED BY: GUS LabSaint John'S Health System Waczyv6165 [address] NeighborMDAtrium Health Cabarrusin [place] [id number] Urobilinogen (U) [Mass/Vol] 1.0 mg/dL Normal 0.2-1.0 [facility]; [facility] Work Phone: Urobilinogen Test strip (U) [Mass/Vol] 1.0 mg/dL Normal 0.2-1.0 Comprehensi ve Internal Medicine; [facility] Work Phone: Comment on above: PATIENT WAS FASTINGP ERFORMED BY: GUS LabCo Xtfrqs4348 [facility] [id number] BNP,B-Type NATRIURETIC PEPTI DEOrdered By: Machine Lay Out Worker on 05-07-2018 B-TYPE ECHO PEP 580.8 pg/mL Abnormal 0-100 Comprehen [facility] Internal [facility] Work Phone: Basic Metabolic Profile (BMP )Ordered By: Machine Lay Out Worker on 05-07-2018 Basic metabolic 2000 panel 3.7 mmol/L Normal 3.5-5.1 [facility] Work Phone: Basic metabolic 2000 panel 140 mmol/L Normal 136-145 [facility] Work Phone: Basic metabolic 2000 panel 8.7 mg/dL Normal 8.5-10.1 [facility] Work Phone: Basic metabolic 2000 panel 108 mmol/L Abnormal 98-107 [facility] Work Phone: Basic metabolic 2000 panel 14.4 {RATIO} Normal 10-20 [facility] Work Phone: Basic metabolic 2000 panel 115 mL/min Normal [facility] Work Phone: Comment on above: GFR Calc Basic metabolic 2000 panel 95 mL/min Normal [facility] Work Phone: Comment on above: Non- GFR Calc Basic metabolic 2000 panel 0.83 mg/dL Normal 0.70-1.30 [facility] Work Phone: Comment on above: The validity of the calculated GFR AND GFRAA in patients over70 years has not been determined. Clinical correlation isessential. Basic metabolic 2000 panel 12 mg/dL Normal 7-18 [facility] Work Phone: Basic metabolic 2000 panel 9 1 Normal 5-15 [facility] Work Phone: Basic metabolic 2000 panel 129 mg/dL Abnormal 74-106 [facility] Work Phone: Comment on above: Fasting Glucose resu lt greater than or equal to 126 mg/dLsuggests DIABETES MELLITUS per A.D.A. criteria.Please note revised GLUCOSE reference range tanshvmyz13/02/2018. Basic metabolic 2000 panel 23.0 mmol/L Normal 21.0-32.0 [facility] Work Phone: Lipid ProfileOrdered By: Hunter tem Network Solutions Architect on 04-22-2018 Cholesterol in HDL mass conc 30 mg/dL Abnormal [facility] Internal Medicine Work Phone: Comment on above: The drugs N-Acetylcy steine and Metamizole may falselydepress this assay. Reference Range HDL <40 mg/dL Low HDL Cholesterol HDL >or= 60 mg/dL High HDL Cholesterol Cholesterol in LDL mass conc 104 mg/dL Normal 0-130 [facility] Internal Medicine Work Phone: Cholesterol in VLDL mass conc 27 mg/dL Normal 5-40 [facility] Internal Medicine Work Phone: Cholesterol mass conc 161 mg/dL Normal Com prehensive Internal Medicine Work Phone: Comment on above: <200 mg/dL Desirable 200-240 mg/dL Borderline >240 mg/dL High Risk Triglyceride mass conc 137 mg/dL Normal [facility] Internal Medicine Work Phone: Comment on above: The drugs N-Acetylcy steine and Metamizole may falselydepress this assay.Serum Triglycerides Reference Interval Normal <150 mg/dL Borderline high 150 - 199 mg/dL High 200 - 499 mg/dL Very High > or = 500 mg/dL Liver ProfileOrdered By: [facility] tem Network Solutions Architect on 04-22-2018 Albumin mass conc 3.7 g/dL Normal 3.2-5.0 [facility] Internal Medicine Work Phone: ALP enzyme act/vol 63 U/L Normal 45-117 [facility] Internal Medicine Work Phone: ALT enzyme act/vol 29 U/L Normal 16-61 [facility] Internal Medicine Work Phone: AST enzyme act/vol 27 U/L Normal 15-37 [facility] Internal Medicine Work Phone: D BILI 0.23 mg/dL Normal 0.00-0.30 [facility] Internal Medicine Work Phone: Globulin Calculated mass conc (S) 3.4 g/dL Normal 2.2-4.2 [facility] Internal Medicine Work Phone: T BILI 1.00 mg/dL Normal 0.20-1.00 [facility] Work Phone: T PROT 7.1 g/dL Normal 6.4-8.2 [facility] Work Phone: Blood Glucose , Office ([phone])Ordered By: Mya Braga on 11-29-2017 Glucose Glucometer molar conc (BldC) 124 1 Normal [facility] Work Phone: HgA1C , Office ([id number])Ordere d By: Mya Braga on 11-29-2017 Hemoglobin A1c/Hemoglobin.total mass fraction (Bld) 6.0 % Normal 4.6 - 7.1 Comprehensiv e Internal Medicine Work Phone: CBC W/AUTO DIFF WBC ([id number])O rdered By: Machine Lay Out Worker on 09-11-2017 Basophils (Bld) [#/Vol] 0.0 {x10E3/uL} Normal 0.0-0.2 [facility] Work Phone: Comment on above: PATIENT WAS FASTINGP ERFORMED BY: FengxiafeiECU Health [id number] Basophils (Bld) [#/Vol] 0.0 10*3/uL Normal 0.0-0.2 [facility] Work Phone: Basophils Auto #/vol (Bld) 0.0 {x10E3/uL} Normal 0.0-0.2 [facility] Work Phone: Basophils/100 WBC (Bld) 0 % Normal [facility] Work Phone: Comment on above: PATIENT WAS FASTINGP ERFORMED BY: Patient Home Monitoring70 [employer] Media GroupECU Health [id number] Basophils/100 WBC Auto (Bld) 0 % Normal [facility] Work Phone: Eosinophils (Bld) [#/Vol] 0.2 {x10E3/uL} Normal 0.0-0.4 [facility] Work Phone: Comment on above: PATIENT WAS FASTINGP ERFORMED BY: FengxiafeiECU Health [id number] Eosinophils (Bld) [#/Vol] 0.2 10*3/uL Normal 0.0-0.4 [facility] Work Phone: Eosinophils Auto #/vol (Bld) 0.2 {x10E3/uL} Normal 0.0-0.4 [facility] Work Phone: Eosinophils/100 WBC (Bld) 4 % Normal [facility] Work Phone: Comment on above: PATIENT WAS FASTINGP ERFORMED BY: GUS LabFlowboardsinai JoaquinMlsnym4437 Grijalva NeighborMDAtrium Health [facility] [id number] Eosinophils/100 WBC Auto (Bld) 4 % Normal [facility] Work Phone: Erythrocyte distribution width (RBC) [Ratio] 12.9 % Normal 12.3-15.4 [facility] Work Phone: Comment on above: PATIENT WAS FASTINGP ERFORMED BY: GUS Wote Niylqv8357 Grijalva NeighborMDAtrium Health [facility] [id number] Erythrocyte distribution width Auto Ratio (RBC) 12.9 % Normal 12.3-15.4 [facility] Work Phone: Hematocrit (Bld) [Volume fraction] 39.0 % Normal 37.5-51.0 [facility] Work Phone: Comment on above: PATIENT WAS FASTINGP ERFORMED BY: GUS Wotesinai JoaquinLntdqm1397 Grijalva NeighborMDAtrium Health [facility] [id number] Hematocrit Auto Volume Fraction (Bld) 39.0 % Normal 37.5-51.0 [facility] Internal [facility] Work Phone: Hemoglobin mass conc (Bld) 14.0 g/dL Normal 13.0-17.7 [facility] Work Phone: Comment on above: PATIENT WAS FASTINGP ERFORMED BY: GUS LabFlowboard Kwagcs6509 Grijalva NeighborMDAtrium Health [place] [id number] Immature granulocytes #/vol (Bld) 0.0 {x10E3/uL} Normal 0.0-0.1 [facility] Work Phone: Comment on above: PATIENT WAS FASTINGP ERFORMED BY: [place] 0630770 [facility] [id number] Immature granulocytes (Bld) [#/Vol] 0.0 10*3/uL Normal 0.0-0.1 [facility] Work Phone: Immature granulocytes/100 WBC (Bld) 0 % Normal [facility] Work Phone: Comment on above: PATIENT WAS FASTINGP ERFORMED BY: [place] 0630770 [facility] [id number] Lymphocytes (Bld) [#/Vol] 1.3 {x10E3/uL} Normal 0.7-3.1 [facility] Work Phone: Comment on above: PATIENT WAS FASTINGP ERFORMED BY: GUS [place] [id number] [facility] [id number] Lymphocytes (Bld) [#/Vol] 1.3 10*3/uL Normal 0.7-3.1 [facility] Work Phone: Lymphocytes Auto #/vol (Bld) 1.3 {x10E3/uL} Normal 0.7-3.1 [facility] Work Phone: Lymphocytes/100 WBC (Bld) 29 % Normal [facility] Work Phone: Comment on above: PATIENT WAS FASTINGP ERFORMED BY: [facility]6370 [facility] [id number] Lymphocytes/100 WBC Auto (Bld) 29 % Normal [facility] Work Phone: MCH (RBC) [Entitic mass] 31.5 pg Normal 26.6-33.0 [facility] Work Phone: Comment on above: PATIENT WAS FASTINGP ERFORMED BY: [address] [id number] MCH Auto Entitic mass (RBC) 31.5 pg Normal 26.6-33.0 [facility] Work Phone: MCHC (RBC) [Mass/Vol] 35.9 g/dL Abnormal 31.5-35.7 [facility] prehensive Internal Medicine Work Phone: Comment on above: PATIENT WAS FASTINGP ERFORMED BY: [facility]6370 [facility] [id number] MCHC Auto mass conc (RBC) 35.9 g/dL Abnormal 31.5-35.7 [facility] Work Phone: MCV (RBC) [Entitic vol] 88 fL Normal 79-97 [facility] Work Phone: Comment on above: PATIENT WAS FASTINGP ERFORMED BY: [place] 0630770 [facility] [id number] MCV Auto Entitic volume (RBC) 88 fL Normal 79-97 [facility] Work Phone: Monocytes (Bld) [#/Vol] 0.5 {x10E3/uL} Normal 0.1-0.9 [facility] Work Phone: Comment on above: PATIENT WAS FASTINGP ERFORMED BY: [facility]6370 [facility] [id number] Monocytes (Bld) [#/Vol] 0.5 10*3/uL Normal 0.1-0.9 [facility] Work Phone: Monocytes Auto #/vol (Bld) 0.5 {x10E3/uL} Normal 0.1-0.9 [facility] Work Phone: Monocytes/100 WBC (Bld) 11 % Normal [facility] Work Phone: Comment on above: PATIENT WAS FASTINGP ERFORMED BY: [facility]6370 [facility] [id number] Monocytes/100 WBC Auto (Bld) 11 % Normal [facility] Work Phone: Neutrophils (Bld) [#/Vol] 2.5 {x10E3/uL} Normal 1.4-7.0 [facility] Work Phone: Comment on above: PATIENT WAS FASTINGP ERFORMED BY: [place] 0630770 [facility] [id number] Neutrophils (Bld) [#/Vol] 2.5 10*3/uL Normal 1.4-7.0 [facility] Work Phone: Neutrophils Auto #/vol (Bld) 2.5 {x10E3/uL} Normal 1.4-7.0 [facility] Work Phone: Neutrophils/100 WBC (Bld) 56 % Normal [facility] Work Phone: Comment on above: PATIENT WAS FASTINGP ERFORMED BY: GUS [employer]70 [facility] [id number] Neutrophils/100 WBC Auto (Bld) 56 % Normal [facility] Work Phone: Platelets (Bld) [#/Vol] 284 {x10E3/uL} Normal 150-379 [facility] Work Phone: Comment on above: PATIENT WAS FASTINGP ERFORMED BY: GUS [employer]70 [facility] [id number] Platelets (Bld) [#/Vol] 284 10*3/uL Normal 150-379 [facility] Work Phone: Platelets Auto #/vol (Bld) 284 {x10E3/uL} Normal 150-379 [facility] Work Phone: RBC (Bld) [#/Vol] 4.45 {x10E6/uL} Normal 4.14-5.80 [facility] Internal Medicine Work Phone: Comment on above: PATIENT WAS FASTINGP ERFORMED BY: [employer]6370 [facility] [id number] RBC (Bld) [#/Vol] 4.45 10*6/uL Normal 4.14-5.80 [facility] Internal Medicine Work Phone: RBC Auto #/vol (Bld) 4.45 {x10E6/uL} Normal 4.14-5.80 [facility] Work Phone: WBC (Bld) [#/Vol] 4.5 {x10E3/uL} Normal 3.4-10.8 [facility] Internal Medicine Work Phone: Comment on above: PATIENT WAS FASTINGP ERFORMED BY: GUS LabCoBayonne Medical CenterNeeqcx9815 [facility] [id number] WBC (Bld) [#/Vol] 4.5 10*3/uL Normal 3.4-10.8 [facility] Internal [facility] Work Phone: WBC Auto #/vol (Bld) 4.5 {x10E3/uL} Normal 3.4-10.8 [facility] Work Phone: LIPID PANEL ([id number])Ordered B y: Machine Lay Out Worker on 09-11-2017 Cholesterol in HDL mass conc 37 mg/dL Abnormal [facility] Work Phone: Comment on above: PATIENT WAS FASTINGP ERFORMED BY: GUS LabDayana Cykvtq1315 [facility] [id number] Cholesterol in LDL mass conc 130 mg/dL Abnormal 0-99 [facility] Work Phone: Comment on above: PATIENT WAS FASTINGP ERFORMED BY: GUS LabCarlos Ville 1293270 [facility] [id number] Cholesterol in LDL/Cholesterol in HDL mass ratio 3.5 {ratio_units} Normal 0.0-3.6 [facility] Work Phone: Comment on above: LDL/HDL Ratio Men Wo men 1/2 Avg.Risk 1.0 1.5 Avg.Risk 3.6 3.2 2X Avg.Risk 6.2 5.0 3X Avg.Risk 8.0 6.1 PATIENT WAS FASTINGP ERFORMED BY: GUS LabHarper University Hospital6370 [facility] [id number] Cholesterol in VLDL mass conc 28 mg/dL Normal 5-40 [facility] Work Phone: Comment on above: PATIENT WAS FASTINGP ERFORMED BY: GUS LabCo Mytmoh7167 [facility] [id number] Cholesterol mass conc 195 mg/dL Normal 100-199 Com prehensive Internal Medicine Work Phone: Comment on above: PATIENT WAS FASTINGP ERFORMED BY: GUS Gia Joaquinlin6370 [facility] [id number] Triglyceride mass conc 141 mg/dL Normal 0-149 [facility] Work Phone: Comment on above: PATIENT WAS FASTINGP ERFORMED BY: GUS MarcelinaDayana JoaquinFdwzpo5939 [facility] [id number] METABOLIC PANEL, COMPREHENSI VE ([id number])Ordered By: Machine Lay Out Worker on 09-11-2017 Albumin mass conc 4.6 g/dL Normal 3.5-4.8 [facility] Work Phone: Comment on above: PATIENT WAS FASTINGP ERFORMED BY: GUS LabDayana JoaquinBmwuws4074 [facility] [id number] Albumin/Globulin mass ratio 1.9 {ratio} Normal 1.2-2.2 [facility] Work Phone: Comment on above: PATIENT WAS FASTINGP ERFORMED BY: GUS Joaquinlin6370 [facility] [id number] ALP [Catalytic activity/Vol] 68 U/L Normal 39-117 [facility] Work Phone: ALP enzyme act/vol 68 [iU]/L Normal 39-117 [facility] Internal Medicine Work Phone: Comment on above: PATIENT WAS FASTINGP ERFORMED BY: GUS Verma Pjzowk1674 [facility] [id number] ALT [Catalytic activity/Vol] 21 U/L Normal 0-44 [facility] Work Phone: ALT enzyme act/vol 21 [iU]/L Normal 0-44 [facility] Internal [facility] Work Phone: Comment on above: PATIENT WAS FASTINGP ERFORMED BY: GUS LabMaria Alejandra Pzaagj3172 [facility] [id number] AST [Catalytic activity/Vol] 24 U/L Normal 0-40 [facility] Work Phone: AST enzyme act/vol 24 [iU]/L Normal 0-40 [facility] Internal Medicine Work Phone: Comment on above: PATIENT WAS FASTINGP ERFORMED BY: CB [facility] Clrtyj9503 Grij[address]va RoadDublin [place] [id number] Bilirubin mass conc 0.8 mg/dL Normal 0.0-1.2 Compr ehensive Internal Medicine Work Phone: Comment on above: PATIENT WAS FASTINGP ERFORMED BY: GUS [facility] Utaawl4528 Grijalva RoadDublin [place] [id number] Calcium mass conc 10.0 mg/dL Normal 8.6-10.2 Compreh ensive Internal Medicine Work Phone: Comment on above: PATIENT WAS FASTINGP ERFORMED BY: GUS [facility] Zuxqvi5071 Grij[address]va RoadDublin [place] [id number] Chloride molar conc 100 mmol/L Normal 96-106 Compr ehensive Internal Medicine Work Phone: Comment on above: PATIENT WAS FASTINGP ERFORMED BY: GUS LabCosinai JoaquinKrlgcq6867 Grij[address]va RoadDublin [place] [id number] CO2 molar conc 23 mmol/L Normal 18-29 Comprehens yamileth Internal Medicine Work Phone: Comment on above: PATIENT WAS FASTINGP ERFORMED BY: GUS [facility] Jewdeq6418 [address] RoadDublin [place] [id number] Creatinine mass conc 0.86 mg/dL Normal 0.76-1.27 Comp rehensive Internal Medicine Work Phone: Comment on above: PATIENT WAS FASTINGP ERFORMED BY: GUS LabCosinai JoaquinHaukhv2905 Grij[address]va RoadDublin [place] [id number] GFR/1.73 sq M predicted among blacks CKD-EPI vol rate/area (S/P/Bld) 96 mL/min/1.73 Normal Comprehensiv e Internal Medicine Work Phone: Comment on above: PATIENT WAS FASTINGP ERFORMED BY: GUS [facility] Sbifbw4033 [address] RoadDublin [place] [id number] GFR/1.73 sq M predicted among non-blacks CKD-EPI vol rate/area (S/P/Bld) 83 mL/min/1.73 Normal [facility] Work Phone: Comment on above: PATIENT WAS FASTINGP ERFORMED BY: GUS LabCo Istvzz3473 [facility] [id number] Globulin (S) [Mass/Vol] 2.4 g/dL Normal 1.5-4.5 [facility] Work Phone: Comment on above: PATIENT WAS FASTINGP ERFORMED BY: GUS Luci Fhoccm8637 [facility] [id number] Globulin Calculated mass conc (S) 2.4 g/dL Normal 1.5-4.5 [facility] Work Phone: Glucose mass conc 119 mg/dL Abnormal 65-99 Compreh ensive Internal Medicine Work Phone: Comment on above: PATIENT WAS FASTINGP ERFORMED BY: GUS Joaquinlin6370 [facility] [id number] Potassium molar conc 4.3 mmol/L Normal 3.5-5.2 Comp rehensive Internal Medicine Work Phone: Comment on above: PATIENT WAS FASTINGP ERFORMED BY: GUS Joaquinlin6370 [facility] [id number] Protein mass conc 7.0 g/dL Normal 6.0-8.5 Compreh ensive Internal Medicine Work Phone: Comment on above: PATIENT WAS FASTINGP ERFORMED BY: GUS MarcelinaDayana JoaquinMupsch4686 [facility] [id number] Sodium molar conc 138 mmol/L Normal 134-144 Compreh ensive Internal Medicine Work Phone: Comment on above: PATIENT WAS FASTINGP ERFORMED BY: GUS LabHarper University Hospital6370 [facility] [id number] Urea nitrogen mass conc 19 mg/dL Normal 8-27 [facility] Work Phone: Comment on above: PATIENT WAS FASTINGP ERFORMED BY: GUS LabSaint John'S Health System Hmcdwl0041 [facility] [id number] Urea nitrogen/Creatinine mass ratio 22 mg/mg Normal 10-24 [facility] Work Phone: Comment on above: PATIENT WAS FASTINGP ERFORMED BY: GUS LabSaint John'S Health System Qhngom4896 [facility] [id number] MICROALBUMINOrdered By: [employer] em Network Solutions Architect on 09-11-2017 Albumin DL <= 20 mg/L mass conc (U) 7.1 ug/mL Normal [facility] Work Phone: Comment on above: PATIENT WAS FASTINGP ERFORMED BY: GUS [employer] Tgivon3614 [facility] [id number] Albumin/Creatinine mass ratio (U) 5.8 {mg/g_creat} Normal 0.0-30.0 [facility] Work Phone: Comment on above: PATIENT WAS FASTINGP ERFORMED BY: LabCo Zrqqze1589 Grijalva NeighborMDAtrium Health [facility] [id number] Creatinine mass conc (U) 122.3 mg/dL Normal [facility] Work Phone: Comment on above: PATIENT WAS FASTINGP ERFORMED BY: GUS LabCo Untqbd4384 [facility] [id number] Microscopic ExaminationOrder ed By: Machine Lay Out Worker on 09-11-2017 Bacteria LM.HPF #/area (Urine sed) Few Normal [facility] Work Phone: Epithelial cells LM.HPF #/area (Urine sed) 0-10 Normal 0 - 10 [facility] Work Phone: Mucus LM Ql (Urine sed) Present Normal [facility] Work Phone: RBC LM.HPF #/area (Urine sed) 0-2 Normal 0 - 2 [facility] Work Phone: WBC LM.HPF #/area (Urine sed) 0-5 Normal 0 - 5 [facility] Work Phone: TSH ([phone])Ordered By: [employer]land[employer] Developmente m Network Solutions Architect on 09-11-2017 Thyrotropin Qn 1.780 {uIU/mL} Normal 0.450-4.50 0 [facility] Work Phone: Comment on above: PATIENT WAS FASTINGP ERFORMED BY: LabCo Iyxvlt4535 [facility] [id number] URINALYSIS, W/ MICRO ([id number]) Ordered By: Machine Lay Out Worker on 09-11-2017 Appearance Nom (U) Clear Normal Compre hensive Internal Medicine Work Phone: Comment on above: PATIENT WAS FASTINGP ERFORMED BY: GUS LabDayana JoaquinHqrudi3571 Grij[address]va RoadDublin [place] [id number] Bilirubin Ql (U) Negative Normal Comprehe nsive Internal Medicine Work Phone: Comment on above: PATIENT WAS FASTINGP ERFORMED BY: GUS [facility] Ennyir1380 [address] RoadDublin [place] [id number] Bilirubin Ql (U) Negative Normal Comprehe nsive Internal Medicine Work Phone: Color Nom (U) Yellow Normal Comprehensi ve Internal Medicine Work Phone: Comment on above: PATIENT WAS FASTINGP ERFORMED BY: GUS Joaquinlin6370 [address] RoadDublin [place] [id number] Glucose Ql (U) Negative Normal Comprehens yamileth Internal Medicine Work Phone: Comment on above: PATIENT WAS FASTINGP ERFORMED BY: GUS LabDayana JoaquinZqsauh7808 [address] RoadDublin [place] [id number] Glucose Ql (U) Negative Normal Comprehens yamileth Internal [facility] Work Phone: Hemoglobin Ql (U) Negative Normal Compreh ensive Internal Medicine Work Phone: Comment on above: PATIENT WAS FASTINGP ERFORMED BY: GUS LabDayana JoaquinCyphpb0509 [address] RoadDublin [place] [id number] Hemoglobin Ql (U) Negative Normal Compreh ensive Internal Medicine Work Phone: Hemoglobin Test strip Ql (U) Negative Normal [facility] Work Phone: Ketones Ql (U) Negative Normal Comprehens yamileth [facility] Work Phone: Comment on above: PATIENT WAS FASTINGP ERFORMED BY: GUS LabMaria Alejandrarp Ggwmka6464 [address] RoadDublin [place] [id number] Ketones Ql (U) Negative Normal Comprehens yamileth [facility] Work Phone: Leukocyte esterase Test strip Ql (U) Negative Normal [facility] Work Phone: Comment on above: PATIENT WAS FASTINGP ERFORMED BY: GUS [facility] Xibbpl5435 [address] RoadDublin [place] [id number] Leukocyte esterase Test strip Ql (U) Negative Normal [facility] Work Phone: Microscopic observation LM Nom (Urine sed) MICRON Normal [facility] Work Phone: Comment on above: Microscopic follows if indicated. PATIENT WAS FASTINGP ERFORMED BY: GUS [facility] Ejpskz1076 [address] RoadDublin [place] [id number] Microscopic observation LM Nom (Urine sed) See below: Normal [facility] Work Phone: Comment on above: Microscopic was kylah cated and was performed. PATIENT WAS FASTINGP ERFORMED BY: GUS LabCosinai JoaquinAcdmzi9386 [address] RoadDublin [place] [id number] Nitrite Ql (U) Negative Normal Comprehens yamileth [facility] Work Phone: Comment on above: PATIENT WAS FASTINGP ERFORMED BY: GUS LabCosinai JoaquinOqrivt1784 [address] RoadDublin [place] [id number] Nitrite Ql (U) Negative Normal Comprehens yamileth [facility] Work Phone: Nitrite Test strip Ql (U) Negative Normal [facility] Work Phone: pH (U) 7.5 [pH] Normal 5.0-7.5 [facility] Work Phone: Comment on above: PATIENT WAS FASTINGP ERFORMED BY: GUS LabCo Vzjxow4800 [address] RoadDublin [place] [id number] pH Test strip (U) 7.5 [pH] Normal 5.0-7.5 Compreh ensive Internal Medicine Work Phone: Protein Ql (U) Negative Normal Comprehens yamileth [facility] Work Phone: Comment on above: PATIENT WAS FASTINGP ERFORMED BY: GUS [facility] Fzmwuf1762 [address] RoadDublin [place] [id number] Protein Ql (U) Negative Normal Comprehens yamileth [facility] Work Phone: Protein Test strip Ql (U) Negative Normal [facility] Work Phone: Specific gravity Relative Density (U) 1.022 1 Normal 1.005-1.03 0 [facility] Work Phone: Comment on above: PATIENT WAS FASTINGP ERFORMED BY: WoteBayonne Medical CenterNdkjly0188 [facility] [id number] Urobilinogen (U) [Mass/Vol] 1.0 mg/dL Normal 0.2-1.0 [facility] Work Phone: Urobilinogen Test strip mass conc (U) 1.0 mg/dL Normal 0.2-1.0 Comprehensiv e Internal Medicine Work Phone: Comment on above: PATIENT WAS FASTINGP ERFORMED BY: LabFlowboardBayonne Medical CenterMlvper8381 [facility] [id number] Blood Glucose , Office ([phone])Ordered By: Mya Braga on 08-28-2017 Glucose Glucometer molar conc (BldC) 140 1 Normal [facility] Work Phone: HgA1C , Office ([phone])Ordere d By: Mya Braga on 08-28-2017 Hemoglobin A1c/Hemoglobin.total mass fraction (Bld) 6.0 % Normal 4.6 - 7.1 Comprehensiv e Internal Medicine Work Phone: Blood Glucose , Office ([phone])Ordered By: Mya Braga on 01-25-2017 Glucose Glucometer molar conc (BldC) 105 1 Normal [facility] Work Phone: HgA1C , Office ([phone])Ordere d By: Mya Braga on 01-25-2017 Hemoglobin A1c/Hemoglobin.total mass fraction (Bld) 6.0 % Normal 4.6 - 7.1 Comprehensiv e Internal Medicine Work Phone: Office Visiton 01-25-2017 Documentation of current medications (procedure) Done Invalid Interpretation Code [facility] Work Phone: Fall risk assessment No Invalid Interpretation Code [facility] Work Phone: Office Visit: Aric 08-01-19 17 Protein mass conc Done [facility] Work Phone: Urinalysis, Office ([phone])Or dered By: Alonzo Freeman on 07-04-2016 Bilirubin Ql (U) Negative Normal Comprehe nsive Internal Medicine Work Phone: Glucose Test strip mass conc (U) Negative Normal [facility] Work Phone: Hemoglobin Test strip Ql (U) Negative Normal [facility] Work Phone: Ketones Ql (U) Negative Normal Comprehens yamileth [facility] Work Phone: Leukocyte esterase Test strip Ql (U) Negative Normal [facility] Work Phone: Nitrite Test strip Ql (U) Negative Normal [facility] Work Phone: pH Test strip (U) 8.5 [pH] Normal Compreh ensive [facility] Medicine Work Phone: Protein Test strip Ql (U) Negative Normal [facility] Work Phone: Specific gravity Relative Density (U) 1.020 1 Normal Comprehensi ve Internal Medicine Work Phone: Urobilinogen mass/time (24H U) Normal Normal [facility] Work Phone: Urinalysis, Office ([phone])on 07-04-2016 Bilirubin Ql (U) Negative Normal Comprehe nsive Internal Medicine Work Phone: Glucose Test strip (U) [Mass/Vol] Negative Normal [facility] Work Phone: Hemoglobin Ql (U) Negative Normal Compreh ensive [facility] Medicine Work Phone: Hemoglobin Ql (U) Negative Normal Compreh ensive [facility] Work Phone: Ketones Ql (U) Negative Normal Comprehens yamileth [facility] Work Phone: Leukocyte esterase Test strip Ql (U) Negative Normal [facility] Work Phone: Nitrite Ql (U) Negative Normal Comprehens yamileth [facility] Work Phone: Nitrite Ql (U) Negative Normal Comprehens [facility]ile[facility] Work Phone: pH (U) 8.5 [pH] Normal [facility] Work Phone: Protein Ql (U) Negative Normal Comprehens yamileth [facility] Work Phone: Protein Ql (U) Negative Normal Comprehens yamileth [facility] Work Phone: CBC W/AUTO DIFF WBC ([phone])O rdered By: Machine Lay Out Worker on 06-19-2016 Basophils (Bld) [#/Vol] 0.0 {x10E3/uL} Normal 0.0-0.2 [facility] Work Phone: Comment on above: PATIENT WAS FASTINGP ERFORMED BY: GUS [employer]70 Scores Media GroupECU Health [id number] Basophils (Bld) [#/Vol] 0.0 10*3/uL Normal 0.0-0.2 [facility] Work Phone: Basophils Auto #/vol (Bld) 0.0 {x10E3/uL} Normal 0.0-0.2 [facility] Work Phone: Basophils/100 WBC (Bld) 1 % Normal [facility] Work Phone: Comment on above: PATIENT WAS FASTINGP ERFORMED BY: FengxiafeiECU Health [id number] Basophils/100 WBC Auto (Bld) 1 % Normal [facility] Work Phone: Eosinophils (Bld) [#/Vol] 0.2 {x10E3/uL} Normal 0.0-0.4 [facility] Work Phone: Comment on above: PATIENT WAS FASTINGP ERFORMED BY: Attolight6370 [employer] Media GroupECU Health [id number] Eosinophils (Bld) [#/Vol] 0.2 10*3/uL Normal 0.0-0.4 [facility] Work Phone: Eosinophils Auto #/vol (Bld) 0.2 {x10E3/uL} Normal 0.0-0.4 [facility] Work Phone: Eosinophils/100 WBC (Bld) 4 % Normal [facility] Work Phone: Comment on above: PATIENT WAS FASTINGP ERFORMED BY: LabHarper University Hospital6370 [facility] [id number] Eosinophils/100 WBC Auto (Bld) 4 % Normal [facility] Work Phone: Erythrocyte distribution width (RBC) [Ratio] 13.9 % Normal 12.3-15.4 [facility] Work Phone: Comment on above: PATIENT WAS FASTINGP ERFORMED BY: LabHarper University Hospital6370 [facility] [id number] Erythrocyte distribution width Auto Ratio (RBC) 13.9 % Normal 12.3-15.4 [facility] Work Phone: Hematocrit (Bld) [Volume fraction] 41.8 % Normal 37.5-51.0 [facility] Work Phone: Comment on above: PATIENT WAS FASTINGP ERFORMED BY: [facility]6370 [facility] [id number] Hematocrit Auto Volume Fraction (Bld) 41.8 % Normal 37.5-51.0 [facility] Internal Medicine Work Phone: Hemoglobin mass conc (Bld) 14.3 g/dL Normal 12.6-17.7 [facility] Work Phone: Comment on above: PATIENT WAS FASTINGP ERFORMED BY: [facility]6370 [facility] [id number] Immature granulocytes #/vol (Bld) 0.0 {x10E3/uL} Normal 0.0-0.1 [facility] Work Phone: Comment on above: PATIENT WAS FASTINGP ERFORMED BY: [facility] Zvkmkn7627 [facility] [id number] Immature granulocytes (Bld) [#/Vol] 0.0 10*3/uL Normal 0.0-0.1 [facility] Work Phone: Immature granulocytes/100 WBC (Bld) 0 % Normal [facility] Work Phone: Comment on above: PATIENT WAS FASTINGP ERFORMED BY: [facility]6370 [facility] [id number] Lymphocytes (Bld) [#/Vol] 1.4 {x10E3/uL} Normal 0.7-3.1 [facility] Work Phone: Comment on above: PATIENT WAS FASTINGP ERFORMED BY: [address] [id number] Lymphocytes (Bld) [#/Vol] 1.4 10*3/uL Normal 0.7-3.1 [facility] Work Phone: Lymphocytes Auto #/vol (Bld) 1.4 {x10E3/uL} Normal 0.7-3.1 [facility] Work Phone: Lymphocytes/100 WBC (Bld) 27 % Normal [facility] Work Phone: Comment on above: PATIENT WAS FASTINGP ERFORMED BY: [address] [id number] Lymphocytes/100 WBC Auto (Bld) 27 % Normal [facility] Work Phone: MCH (RBC) [Entitic mass] 31.9 pg Normal 26.6-33.0 [facility] Work Phone: Comment on above: PATIENT WAS FASTINGP ERFORMED BY: [place] [id number] [facility] [id number] MCH Auto Entitic mass (RBC) 31.9 pg Normal 26.6-33.0 [facility] Work Phone: MCHC (RBC) [Mass/Vol] 34.2 g/dL Normal 31.5-35.7 [facility] prehensive Internal Medicine Work Phone: Comment on above: PATIENT WAS FASTINGP ERFORMED BY: [place] [id number] [facility] [id number] MCHC Auto mass conc (RBC) 34.2 g/dL Normal 31.5-35.7 [facility] Work Phone: MCV (RBC) [Entitic vol] 93 fL Normal 79-97 [facility] Work Phone: Comment on above: PATIENT WAS FASTINGP ERFORMED BY: GUS FirstJobSaint John'S Health System Vyztvx3676 [facility] [id number] MCV Auto Entitic volume (RBC) 93 fL Normal 79-97 [facility] Work Phone: Monocytes (Bld) [#/Vol] 0.5 {x10E3/uL} Normal 0.1-0.9 [facility] Work Phone: Comment on above: PATIENT WAS FASTINGP ERFORMED BY: GUS [place] [id number] [facility] [id number] Monocytes (Bld) [#/Vol] 0.5 10*3/uL Normal 0.1-0.9 [facility] Work Phone: Monocytes Auto #/vol (Bld) 0.5 {x10E3/uL} Normal 0.1-0.9 [facility] Work Phone: Monocytes/100 WBC (Bld) 9 % Normal [facility] Work Phone: Comment on above: PATIENT WAS FASTINGP ERFORMED BY: GUS FirstJobDayana JoaquinYizmsj8842 [facility] [id number] Monocytes/100 WBC Auto (Bld) 9 % Normal [facility] Work Phone: Neutrophils (Bld) [#/Vol] 2.9 {x10E3/uL} Normal 1.4-7.0 [facility] Work Phone: Comment on above: PATIENT WAS FASTINGP ERFORMED BY: GUS [facility]6370 [facility] [id number] Neutrophils (Bld) [#/Vol] 2.9 10*3/uL Normal 1.4-7.0 [facility] Work Phone: Neutrophils Auto #/vol (Bld) 2.9 {x10E3/uL} Normal 1.4-7.0 [facility] Work Phone: Neutrophils/100 WBC (Bld) 59 % Normal [facility] Work Phone: Comment on above: PATIENT WAS FASTINGP ERFORMED BY: [facility]JobHar[facility] Hospital6370 [facility] [id number] Neutrophils/100 WBC Auto (Bld) 59 % Normal [facility] Work Phone: Platelets (Bld) [#/Vol] 311 {x10E3/uL} Normal 150-379 [facility] Work Phone: Comment on above: PATIENT WAS FASTINGP ERFORMED BY: FirstJobCarlos [place] 1293270 [facility] [id number] Platelets (Bld) [#/Vol] 311 10*3/uL Normal 150-379 [facility] Work Phone: Platelets Auto #/vol (Bld) 311 {x10E3/uL} Normal 150-379 [facility] Work Phone: RBC (Bld) [#/Vol] 4.48 {x10E6/uL} Normal 4.14-5.80 [facility] Internal Medicine Work Phone: Comment on above: PATIENT WAS FASTINGP ERFORMED BY: FirstJobCarlos [place] 1293270 [facility] [id number] RBC (Bld) [#/Vol] 4.48 10*6/uL Normal 4.14-5.80 [facility] Internal Medicine Work Phone: RBC Auto #/vol (Bld) 4.48 {x10E6/uL} Normal 4.14-5.80 [facility] Internal Medicine Work Phone: WBC (Bld) [#/Vol] 5.0 {x10E3/uL} Normal 3.4-10.8 [facility] Internal Medicine Work Phone: Comment on above: PATIENT WAS FASTINGP ERFORMED BY: WoteBayonne Medical CenterPnmlaf1515 [facility] [id number] WBC (Bld) [#/Vol] 5.0 10*3/uL Normal 3.4-10.8 [facility] Internal Medicine Work Phone: WBC Auto #/vol (Bld) 5.0 {x10E3/uL} Normal 3.4-10.8 [facility] Work Phone: HGB A1C ([id number])Ordered By: S ystem Network Solutions Architect on 06-19-2016 Hemoglobin A1c/Hemoglobin.total mass fraction (Bld) 6.1 % Abnormal 4.8-5.6 Comprehensiv e Internal Medicine Work Phone: Comment on above: . Pre-diabetes: 5.7 - 6.4 Diabetes: >6.4 Glycemic control for adults with diabetes: <7.0 PATIENT WAS FASTINGP ERFORMED BY: GUS LabDayana Bqtvka6958 [address] [place] [id number] LIPID PANEL ([id number])Ordered B y: Machine Lay Out Worker on 06-19-2016 Cholesterol in HDL mass conc 38 mg/dL Abnormal [facility] Work Phone: Comment on above: PATIENT WAS FASTINGP ERFORMED BY: GUS Joaquinlin6370 [facility] [id number] Cholesterol in LDL mass conc 105 mg/dL Abnormal 0-99 [facility] Work Phone: Comment on above: PATIENT WAS FASTINGP ERFORMED BY: GUS LabDayana JoaquinSoddxr7161 [employer] GroupEC[facility] [id number] Cholesterol in LDL/Cholesterol in HDL mass ratio 2.8 {ratio_units} Normal 0.0-3.6 [facility] Work Phone: Comment on above: LDL/HDL Ratio Men Wo men 1/2 Avg.Risk 1.0 1.5 Avg.Risk 3.6 3.2 2X Avg.Risk 6.2 5.0 3X Avg.Risk 8.0 6.1 PATIENT WAS FASTINGP ERFORMED BY: GUS LabCosinai Bqriqn0930 [address] [place] [id number] Cholesterol in VLDL mass conc 26 mg/dL Normal 5-40 [facility] Work Phone: Comment on above: PATIENT WAS FASTINGP ERFORMED BY: GUS LabDayana JoaquinKbtorb4553 [address] [place] [id number] Cholesterol mass conc 169 mg/dL Normal 100-199 Com prehensive Internal Medicine Work Phone: Comment on above: PATIENT WAS FASTINGP ERFORMED BY: GUS LabCosinai JoaquinFosmuk3469 [facility] [id number] Triglyceride mass conc 130 mg/dL Normal 0-149 [facility] Work Phone: Comment on above: PATIENT WAS FASTINGP ERFORMED BY: LabSaint [facility] Jfaowv7356 [facility] [id number] METABOLIC PANEL, COMPREHENSI VE ([id number])Ordered By: Machine Lay Out Worker on 06-19-2016 Albumin mass conc 4.4 g/dL Normal 3.5-4.8 Compreh ensive Internal Medicine Work Phone: Comment on above: PATIENT WAS FASTINGP ERFORMED BY: GUS LabMaria Alejandra Mejsem1749 [facility] [id number] Albumin/Globulin mass ratio 1.6 {ratio} Normal 1.1-2.5 [facility] Work Phone: Comment on above: PATIENT WAS FASTINGP ERFORMED BY: LabSaint [facility] Tkgxaj6000 [facility] [id number] ALP [Catalytic activity/Vol] 66 U/L Normal 39-117 [facility] Work Phone: ALP enzyme act/vol 66 [iU]/L Normal 39-117 [facility] Internal Medicine Work Phone: Comment on above: PATIENT WAS FASTINGP ERFORMED BY: LabHarper [facility] Hospital6370 [facility] [id number] ALT [Catalytic activity/Vol] 18 U/L Normal 0-44 [facility] Medicine Work Phone: ALT enzyme act/vol 18 [iU]/L Normal 0-44 [facility] Internal Medicine Work Phone: Comment on above: PATIENT WAS FASTINGP ERFORMED BY: LabCo Jkhypb9653 [facility] [id number] AST [Catalytic activity/Vol] 26 U/L Normal 0-40 [facility] Medicine Work Phone: AST enzyme act/vol 26 [iU]/L Normal 0-40 Compre [facility] Work Phone: Comment on above: PATIENT WAS FASTINGP ERFORMED BY: GUS Mo6370 [facility] [id number] Bilirubin mass conc 0.8 mg/dL Normal 0.0-1.2 Compr ensive Internal Medicine Work Phone: Comment on above: PATIENT WAS FASTINGP ERFORMED BY: GUS Mo6370 [facility] [id number] Calcium mass conc 10.1 mg/dL Normal 8.6-10.2 Compreh ensive Internal Medicine Work Phone: Comment on above: PATIENT WAS FASTINGP ERFORMED BY: GUS Mo6370 [facility] [id number] Chloride molar conc 98 mmol/L Normal 97-106 Compr [facility] Internal Medicine Work Phone: Comment on above: PATIENT WAS FASTINGP ERFORMED BY: GUS Mo6370 [facility] [id number] CO2 molar conc 25 mmol/L Normal 18-29 Comprehens yamileth Internal Medicine Work Phone: Comment on above: PATIENT WAS FASTINGP ERFORMED BY: GUS Mo6370 [facility] [id number] Creatinine mass conc 0.81 mg/dL Normal 0.76-1.27 Comp [facility] Internal [facility] Work Phone: Comment on above: PATIENT WAS FASTINGP ERFORMED BY: GUS LabDayana JoaquinEtukbl6882 [facility] [id number] GFR/1.73 sq M predicted among blacks CKD-EPI vol rate/area (S/P/Bld) 99 mL/min/1.73 Normal Comprehensiv e Internal Medicine Work Phone: Comment on above: PATIENT WAS FASTINGP ERFORMED BY: GUS LabCosinai Xkjguk9837 [facility] [id number] GFR/1.73 sq M predicted among non-blacks CKD-EPI vol rate/area (S/P/Bld) 86 mL/min/1.73 Normal [facility] Work Phone: Comment on above: PATIENT WAS FASTINGP ERFORMED BY: GUS LabCosinai Netfaj7322 [facility] [id number] Globulin (S) [Mass/Vol] 2.7 g/dL Normal 1.5-4.5 [facility] Work Phone: Comment on above: PATIENT WAS FASTINGP ERFORMED BY: GUS [facility] Ngausd[address] [facility] [id number] Globulin Calculated mass conc (S) 2.7 g/dL Normal 1.5-4.5 [facility] Work Phone: Glucose mass conc 118 mg/dL Abnormal 65-99 Compreh ensive Internal Medicine Work Phone: Comment on above: PATIENT WAS FASTINGP ERFORMED BY: GUS LabCo Snhkef9661 [facility] [id number] Potassium molar conc 4.5 mmol/L Normal 3.5-5.2 Comp rehensive Internal Medicine Work Phone: Comment on above: PATIENT WAS FASTINGP ERFORMED BY: GUS [facility] Lduprm6720 [facility] [id number] Protein mass conc 7.1 g/dL Normal 6.0-8.5 Compreh ensive Internal Medicine Work Phone: Comment on above: PATIENT WAS FASTINGP ERFORMED BY: GUS [facility] Kspuft2742 [facility] [id number] Sodium molar conc 140 mmol/L Normal 136-144 Compreh ensive Internal Medicine Work Phone: Comment on above: PATIENT WAS FASTINGP ERFORMED BY: GUS [facility] Nbxkdp5927 [facility] [id number] Urea nitrogen mass conc 18 mg/dL Normal 8-27 [facility] Work Phone: Comment on above: PATIENT WAS FASTINGP ERFORMED BY: GUS [facility] Aqbkmb[address] [facility] [id number] Urea nitrogen/Creatinine mass ratio 22 mg/mg Normal 10-22 [facility] Work Phone: Comment on above: PATIENT WAS FASTINGP ERFORMED BY: GUS LabCo Dlocoi9568 [facility] [id number] MICROALBUMINOrdered By: Tigist colin Network Solutions Architect on 06-19-2016 Albumin DL <= 20 mg/L mass conc (U) 34.2 ug/mL Normal [facility] Work Phone: Comment on above: PATIENT WAS FASTINGP ERFORMED BY: GUS LabHarper [facility] Hospital6370 [facility] [id number] Albumin/Creatinine mass ratio (U) 29.3 {mg/g_creat} Normal 0.0-30.0 [facility] Work Phone: Comment on above: PATIENT WAS FASTINGP ERFORMED BY: GUS MarcelinaSaint John'S Health System Khnqwo8959 [facility] [id number] Creatinine mass conc (U) 116.7 mg/dL Normal [facility] Work Phone: Comment on above: PATIENT WAS FASTINGP ERFORMED BY: GUS [facility]6370 [facility] [id number] TSH ([id number])Ordered By: Nellie Network Solutions Architect on 06-19-2016 Thyrotropin Qn 1.410 {uIU/mL} Normal 0.450-4.50 0 [facility] Work Phone: Comment on above: PATIENT WAS FASTINGP ERFORMED BY: GUS LabSaint [facility] Tmspdr1141 [facility] [id number] CBC W/AUTO DIFF WBC ([id number])O rdered By: Machine Lay Out Worker on 12-20-2015 Basophils (Bld) [#/Vol] 0.0 {x10E3/uL} Normal 0.0-0.2 [facility] Work Phone: Comment on above: PATIENT WAS FASTINGP ERFORMED BY: LabCo Bcxwjd3656 [facility] [id number] Information: [id number] Basophils (Bld) [#/Vol] 0.0 10*3/uL Normal 0.0-0.2 [facility] Work Phone: Basophils Auto #/vol (Bld) 0.0 {x10E3/uL} Normal 0.0-0.2 [facility] Work Phone: Basophils/100 WBC (Bld) 0 % Normal [facility] Work Phone: Comment on above: PATIENT WAS FASTINGP ERFORMED BY: [address] [id number] Information: [id number] Basophils/100 WBC Auto (Bld) 0 % Normal [facility] Work Phone: Eosinophils (Bld) [#/Vol] 0.2 {x10E3/uL} Normal 0.0-0.4 [facility] Work Phone: Comment on above: PATIENT WAS FASTINGP ERFORMED BY: [address] [id number] Information: [id number] Eosinophils (Bld) [#/Vol] 0.2 10*3/uL Normal 0.0-0.4 [facility] Work Phone: Eosinophils Auto #/vol (Bld) 0.2 {x10E3/uL} Normal 0.0-0.4 [facility] Work Phone: Eosinophils/100 WBC (Bld) 4 % Normal [facility] Work Phone: Comment on above: PATIENT WAS FASTINGP ERFORMED BY: [place] 0630770 [facility] [id number] Information: [id number] Eosinophils/100 WBC Auto (Bld) 4 % Normal [facility] Work Phone: Erythrocyte distribution width (RBC) [Ratio] 13.9 % Normal 12.3-15.4 [facility] Work Phone: Comment on above: PATIENT WAS FASTINGP ERFORMED BY: [place] 0630770 [facility] [id number] Information: [id number] Erythrocyte distribution width Auto Ratio (RBC) 13.9 % Normal 12.3-15.4 [facility] Work Phone: Hematocrit (Bld) [Volume fraction] 39.6 % Normal 37.5-51.0 [facility] Internal Medicine Work Phone: Comment on above: PATIENT WAS FASTINGP ERFORMED BY: GUS Mo6370 [facility] [id number] Information: [id number] Hematocrit Auto Volume Fraction (Bld) 39.6 % Normal 37.5-51.0 [facility] Internal Medicine Work Phone: Hemoglobin mass conc (Bld) 14.0 g/dL Normal 12.6-17.7 [facility] Internal Medicine Work Phone: Comment on above: PATIENT WAS FASTINGP ERFORMED BY: GUS Joaquinlin6370 [facility] [id number] Information: [id number] Immature granulocytes #/vol (Bld) 0.0 {x10E3/uL} Normal 0.0-0.1 [facility] Work Phone: Comment on above: PATIENT WAS FASTINGP ERFORMED BY: GUS Mo6370 [facility] [id number] Information: [id number] Immature granulocytes (Bld) [#/Vol] 0.0 10*3/uL Normal 0.0-0.1 [facility] Work Phone: Immature granulocytes/100 WBC (Bld) 0 % Normal [facility] Work Phone: Comment on above: PATIENT WAS FASTINGP ERFORMED BY: GUS [facility] Zimifh9238 [facility] [id number] Information: [id number] Lymphocytes (Bld) [#/Vol] 1.4 {x10E3/uL} Normal 0.7-3.1 [facility] Work Phone: Comment on above: PATIENT WAS FASTINGP ERFORMED BY: CB [facility]6370 [facility] [id number] Information: [id number] Lymphocytes (Bld) [#/Vol] 1.4 10*3/uL Normal 0.7-3.1 [facility] Work Phone: Lymphocytes Auto #/vol (Bld) 1.4 {x10E3/uL} Normal 0.7-3.1 [facility] Work Phone: Lymphocytes/100 WBC (Bld) 27 % Normal [facility] Work Phone: Comment on above: PATIENT WAS FASTINGP ERFORMED BY: [place] 0630770 [facility] [id number] Information: [id number] Lymphocytes/100 WBC Auto (Bld) 27 % Normal [facility] Work Phone: MCH (RBC) [Entitic mass] 31.5 pg Normal 26.6-33.0 [facility] Work Phone: Comment on above: PATIENT WAS FASTINGP ERFORMED BY: GUS [place] [id number] [facility] [id number] Information: [id number] MCH Auto Entitic mass (RBC) 31.5 pg Normal 26.6-33.0 [facility] Work Phone: MCHC (RBC) [Mass/Vol] 35.4 g/dL Normal 31.5-35.7 [facility] prehensive Internal Medicine Work Phone: Comment on above: PATIENT WAS FASTINGP ERFORMED BY: [place] 0630770 [facility] [id number] Information: [id number] MCHC Auto mass conc (RBC) 35.4 g/dL Normal 31.5-35.7 [facility] Work Phone: MCV (RBC) [Entitic vol] 89 fL Normal 79-97 [facility] Work Phone: Comment on above: PATIENT WAS FASTINGP ERFORMED BY: [address] [id number] Information: [id number] MCV Auto Entitic volume (RBC) 89 fL Normal 79-97 [facility] Work Phone: Monocytes (Bld) [#/Vol] 0.6 {x10E3/uL} Normal 0.1-0.9 [facility] Work Phone: Comment on above: PATIENT WAS FASTINGP ERFORMED BY: [facility]6370 [facility] [id number] Information: [id number] Monocytes (Bld) [#/Vol] 0.6 10*3/uL Normal 0.1-0.9 [facility] Work Phone: Monocytes Auto #/vol (Bld) 0.6 {x10E3/uL} Normal 0.1-0.9 [facility] Work Phone: Monocytes/100 WBC (Bld) 12 % Normal [facility] Work Phone: Comment on above: PATIENT WAS FASTINGP ERFORMED BY: [facility]6370 [facility] [id number] Information: [id number] Monocytes/100 WBC Auto (Bld) 12 % Normal [facility] Work Phone: Neutrophils (Bld) [#/Vol] 2.9 {x10E3/uL} Normal 1.4-7.0 [facility] Work Phone: Comment on above: PATIENT WAS FASTINGP ERFORMED BY: [facility]6370 [facility] [id number] Information: [id number] Neutrophils (Bld) [#/Vol] 2.9 10*3/uL Normal 1.4-7.0 [facility] Work Phone: Neutrophils Auto #/vol (Bld) 2.9 {x10E3/uL} Normal 1.4-7.0 [facility] Work Phone: Neutrophils/100 WBC (Bld) 57 % Normal [facility] Work Phone: Comment on above: PATIENT WAS FASTINGP ERFORMED BY: GUS [facility]6370 [facility] [id number] Information: [id number] Neutrophils/100 WBC Auto (Bld) 57 % Normal [facility] Work Phone: Platelets (Bld) [#/Vol] 284 {x10E3/uL} Normal 150-379 [facility] Work Phone: Comment on above: PATIENT WAS FASTINGP ERFORMED BY: GUS [place] 5037870 [facility] [id number] Information: [id number] Platelets (Bld) [#/Vol] 284 10*3/uL Normal 150-379 [facility] Work Phone: Platelets Auto #/vol (Bld) 284 {x10E3/uL} Normal 150-379 [facility] Work Phone: RBC (Bld) [#/Vol] 4.45 {x10E6/uL} Normal 4.14-5.80 [facility] Internal Medicine Work Phone: Comment on above: PATIENT WAS FASTINGP ERFORMED BY: GUS [place] 5037870 [facility] [id number] Information: [id number] RBC (Bld) [#/Vol] 4.45 10*6/uL Normal 4.14-5.80 [facility] Internal Medicine Work Phone: RBC Auto #/vol (Bld) 4.45 {x10E6/uL} Normal 4.14-5.80 [facility] Work Phone: WBC (Bld) [#/Vol] 5.1 {x10E3/uL} Normal 3.4-10.8 [facility] Internal Medicine Work Phone: Comment on above: PATIENT WAS FASTINGP ERFORMED BY: GUS [place] [id number] [facility] [id number] Information: [id number] WBC (Bld) [#/Vol] 5.1 10*3/uL Normal 3.4-10.8 Compre hensive Internal Medicine Work Phone: WBC Auto #/vol (Bld) 5.1 {x10E3/uL} Normal 3.4-10.8 [facility] Work Phone: HGB A1C ([id number])Ordered By: S ystem Network Solutions Architect on 12-20-2015 Hemoglobin A1c/Hemoglobin.total mass fraction (Bld) 6.2 % Abnormal 4.8-5.6 Comprehensiv e Internal Medicine Work Phone: Comment on above: . Pre-diabetes: 5.7 - 6.4 Diabetes: >6.4 Glycemic control for adults with diabetes: <7.0 PATIENT WAS FASTINGP ERFORMED BY: GUS [facility]fflineECU Health [id number] LIPID PANEL ([id number])Ordered B y: Machine Lay Out Worker on 12-20-2015 Cholesterol in HDL mass conc 33 mg/dL Abnormal [facility] Work Phone: Comment on above: According to ATP-III Guidelines, HDL-C >59 mg/dL is considered anegative risk factor for CHD. PATIENT WAS FASTINGP ERFORMED BY: GUS [facility]OnlineKn[facility] [id number]; will review at 5/ Cholesterol in LDL mass conc 110 mg/dL Abnormal 0-99 [facility] Work Phone: Comment on above: PATIENT WAS FASTINGP ERFORMED BY: [facility] [id number]; will review at 5/25 Cholesterol in LDL/Cholesterol in HDL mass ratio 3.3 {ratio_units} Normal 0.0-3.6 [facility] Work Phone: Comment on above: LDL/HDL Ratio Men Wo men 1/2 Avg.Risk 1.0 1.5 Avg.Risk 3.6 3.2 2X Avg.Risk 6.2 5.0 3X Avg.Risk 8.0 6.1 PATIENT WAS FASTINGP ERFORMED BY: CB [facility] Pejjvr5874 [address] RoadDublin [place] [id number]; will review at 12/21 Cholesterol in VLDL mass conc 28 mg/dL Normal 5-40 [facility] Work Phone: Comment on above: PATIENT WAS FASTINGP ERFORMED BY: GUS [facility] Zfripq7338 [address] RoadDublin [place] [id number]; will review at 12/21 Cholesterol mass conc 171 mg/dL Normal 100-199 [facility] prehensive Internal Medicine Work Phone: Comment on above: PATIENT WAS FASTINGP ERFORMED BY: GUS [facility] Zpafib5006 [address] RoadDublin [place] [id number]; will review at 12/21 Triglyceride mass conc 141 mg/dL Normal 0-149 [facility] Work Phone: Comment on above: PATIENT WAS FASTINGP ERFORMED BY: GUS [facility] Ynupkd8317 [address] RoadDublin [place] [id number]; will review at 12/21 METABOLIC PANEL, COMPREHENSI VE ([id number])Ordered By: Machine Lay Out Worker on 12-20-2015 Albumin mass conc 4.3 g/dL Normal 3.5-4.8 Compreh ensive Internal Medicine Work Phone: Comment on above: PATIENT WAS FASTINGP ERFORMED BY: GUS [facility] Urgizt9362 [address] RoadDublin [place] [id number] Albumin/Globulin mass ratio 1.7 {ratio} Normal 1.1-2.5 [facility] Work Phone: Comment on above: PATIENT WAS FASTINGP ERFORMED BY: CB [facility] Ttakhk0294 [address] RoadDublin [place] [id number] ALP [Catalytic activity/Vol] 73 U/L Normal 39-117 [facility] Work Phone: ALP enzyme act/vol 73 [iU]/L Normal 39-117 Compre hensive Internal Medicine Work Phone: Comment on above: PATIENT WAS FASTINGP ERFORMED BY: CB [facility] Whzduv6737 G[address]va RoadDublin [place] [id number] ALT [Catalytic activity/Vol] 22 U/L Normal 0-44 [facility] Work Phone: ALT enzyme act/vol 22 [iU]/L Normal 0-44 [facility] Internal Medicine Work Phone: Comment on above: PATIENT WAS FASTINGP ERFORMED BY: GUS LabCosinai JoaquinGdwnyu6574 Grijalva RoadDublin [place] [id number] AST [Catalytic activity/Vol] 29 U/L Normal 0-40 [facility] Internal Medicine Work Phone: AST enzyme act/vol 29 [iU]/L Normal 0-40 [facility] Internal Medicine Work Phone: Comment on above: PATIENT WAS FASTINGP ERFORMED BY: GUS LabDayana JoaquinPwpnfa9625 G[address]va RoadDublin [place] [id number] Bilirubin mass conc 0.9 mg/dL Normal 0.0-1.2 [facility] Internal Medicine Work Phone: Comment on above: PATIENT WAS FASTINGP ERFORMED BY: GUS LabCosinai JoaquinIensvs8797 [address] Roadblin [place] [id number] Calcium mass conc 10.1 mg/dL Normal 8.6-10.2 Compreh [facility] Work Phone: Comment on above: PATIENT WAS FASTINGP ERFORMED BY: GUS LabDayana JoaquinThhziq0390 [address] Roadblin [place] [id number] Chloride molar conc 98 mmol/L Normal 97-108 [facility] Internal Medicine Work Phone: Comment on above: PATIENT WAS FASTINGP ERFORMED BY: GUS LabCosinai JoaquinBhcncg4736 [address] Roadblin [place] [id number] CO2 molar conc 26 mmol/L Normal 18-29 Comprehens [facility] Internal Medicine Work Phone: Comment on above: PATIENT WAS FASTINGP ERFORMED BY: GUS [facility] Gwadiy9234 [address] RoadDublin [place] [id number] Creatinine mass conc 0.79 mg/dL Normal 0.76-1.27 [facility] Work Phone: Comment on above: PATIENT WAS FASTINGP ERFORMED BY: GUS [facility] Picmxp5205 [address] [facility] [place] [id number] GFR/1.73 sq M predicted among blacks CKD-EPI vol rate/area (S/P/Bld) 101 mL/min/1.73 Normal Comprehensiv e Internal Medicine Work Phone: Comment on above: PATIENT WAS FASTINGP ERFORMED BY: GUS [facility] Pxioot5577 [facility] [id number] GFR/1.73 sq M predicted among non-blacks CKD-EPI vol rate/area (S/P/Bld) 87 mL/min/1.73 Normal [facility] Work Phone: Comment on above: PATIENT WAS FASTINGP ERFORMED BY: GUS LabCo Janzav3869 [facility] [id number] Globulin (S) [Mass/Vol] 2.6 g/dL Normal 1.5-4.5 [facility] Work Phone: Comment on above: PATIENT WAS FASTINGP ERFORMED BY: GUS LabSaint [facility] Cxmmlj1588 [facility] [id number] Globulin Calculated mass conc (S) 2.6 g/dL Normal 1.5-4.5 [facility] Work Phone: Glucose mass conc 121 mg/dL Abnormal 65-99 Compreh ensive Internal Medicine Work Phone: Comment on above: PATIENT WAS FASTINGP ERFORMED BY: GUS LabCoBayonne Medical CenterBuwlsf5419 [facility] [id number] Potassium molar conc 5.0 mmol/L Normal 3.5-5.2 Comp rehensive Internal Medicine Work Phone: Comment on above: PATIENT WAS FASTINGP ERFORMED BY: [facility] Mvvwgp9572 [facility] [id number] Protein mass conc 6.9 g/dL Normal 6.0-8.5 Compreh ensive Internal Medicine Work Phone: Comment on above: PATIENT WAS FASTINGP ERFORMED BY: GUS [facility] Qrqtdg7407 [facility] [id number] Sodium molar conc 141 mmol/L Normal 134-144 Compreh ensive Internal Medicine Work Phone: Comment on above: PATIENT WAS FASTINGP ERFORMED BY: GUS [facility] Nthduv4913 [address] NeighborMDDublin [place] [id number] Urea nitrogen mass conc 14 mg/dL Normal 8-27 [facility] Work Phone: Comment on above: PATIENT WAS FASTINGP ERFORMED BY: GUS [facility] Ordncn5654 [address] RoadAtrium Health Cabarrusin [place] [id number] Urea nitrogen/Creatinine mass ratio 18 mg/mg Normal 10-22 [facility] Work Phone: Comment on above: PATIENT WAS FASTINGP ERFORMED BY: GUS LabCosinai JoaquinMchyqd[address] [facility] [id number] MICROALBUMINOrdered By: Syst em Network Solutions Architect on 12-20-2015 Albumin DL <= 20 mg/L (U) [Mass/Vol] mg/dL Normal [facility] Work Phone: Albumin DL <= 20 mg/L mass conc (U) mg/dL Normal [facility] Work Phone: Comment on above: Please note refere nce interval change PATIENT WAS FASTINGP ERFORMED BY: GUS LabCosinai Shjpjf1934 [facility] [id number] Albumin/Creatinine mass ratio (U) <7.8 Normal 0.0-30.0 [facility] Work Phone: Comment on above: PATIENT WAS FASTINGP ERFORMED BY: GUS [facility] Tpwing4667 [address] NeighborMDAtrium Health [facility] [id number] Creatinine mass conc (U) 38.7 mg/dL Normal [facility] Work Phone: Comment on above: Please note refere nce interval change PATIENT WAS FASTINGP ERFORMED BY: GUS [facility] Mvarsg4696 [address] [facility] [place] [id number] PSA (PROSTATE SPECIFIC ANTIG EN) (V76.44)Ordered By: Machine Lay Out Worker on 12-20-2015 Prostate specific Ag mass conc 2.8 ng/mL Normal 0.0-4.0 [facility] Work Phone: Comment on above: Moiz ECLIA methodol ogy. .According to the [place] [employer], Serum PSA shoulddecrease and remain at undetectable levels after radicalprostatectomy. The AUA defines biochemical recurrence as an initialPSA value 0.2 ng/mL or greater followed by a subsequent confirmatoryPSA value 0.2 ng/mL or greater.Values obtained with different assay methods or kits cannot be usedinterchangeably. Results cannot be interpreted as absolute evidenceof the presence or absence of malignant disease. PATIENT WAS FASTINGP ERFORMED BY: [address] [place] [id number] TSH ([id number])Ordered By: [employer] Network Solutions Architect on 12-20-2015 Thyrotropin Qn 2.050 {uIU/mL} Normal 0.450-4.50 0 [facility] Work Phone: Comment on above: PATIENT WAS FASTINGP ERFORMED BY: [address] [place] [id number] COLON BIOPSY (CHOOSE SITE)Or dered By: Machine Lay Out Worker on 09-14-2015 COLON BIOPSY (CHOOSE SITE) See Note Normal [facility] Work Phone: Comment on above: Patient: YUVAL BLACKBURN W : 1940 (75/M) Acct Num: [id number] Phys: David Lee Unit Num: [id number] Loc: LABSPEC Specimen: [id number] Received: 09/14/151610 Spec Type: COLON BX TISSUES TISSUES: GROSS DESCRIPTION A - Received is one container labeled with the patient name and designated sigmoid polyp. The specimen consists of one irregular fragment of light banks soft tissue that measures 0.3 x 0.3 x 0.2 cm. The specimen is totally submittedin one cassette. B - Received is one container labeled with the patient name and designated transverse colon. The specimen consists of two irregular fragments of light banks soft tissue that in aggregate measure 0.5 x 0.2 x 0.1 cm. The specimen is totally submitted in one cassette. / ANA:irlanda 09/15/15 TC:1 CPT: 20297 x2 HEADER OPERATION: colonoscopy with polypectomy PRE-OP DIAGNOSIS: Screening colonoscopy /history polyps TISSUE SUBMITTED: A. Sigmoid polyp rule out adenoma, B. Transverse colon biopsyrule out adenoma MICROSCOPIC DESCRIPTION Slides are reviewed. MICROSCOPIC DIAGNOSIS A Sigmoid polyp, polypectomy: Serrated adenoma (mixed tubular adenoma and hyperplastic polyp). B. Transverse colon, biopsy: Fragments of hyperplastic polyp. SJ:irlanda 09/16/15 Signed Pablo Gunn 09/16/15 Hemoglobin Glyclated (HGB A1 C) (68505)Ordered By: Machine Lay Out Worker on 09-03-2015 Hemoglobin A1c/Hemoglobin.total mass fraction (Bld) 6.6 % Abnormal 4.8-5.6 Comprehensiv e Internal Medicine Work Phone: Comment on above: . Pre-diabetes: 5.7 - 6.4 Diabetes: >6.4 Glycemic control for adults with diabetes: <7.0 PATIENT WAS FASTINGP ERFORMED BY: [employer] [place] [id number] LIPID PANEL ([id number])Ordered B y: Machine Lay Out Worker on 09-03-2015 Cholesterol in HDL mass conc 32 mg/dL Abnormal [facility] Work Phone: Comment on above: According to ATP-III Guidelines, HDL-C >59 mg/dL is considered anegative risk factor for CHD. PATIENT WAS FASTINGP ERFORMED BY: [employer] [place] [id number] Cholesterol in LDL mass conc 124 mg/dL Abnormal 0-99 [facility] Work Phone: Comment on above: PATIENT WAS FASTINGP ERFORMED BY: [employer] [place] [id number] Cholesterol in LDL/Cholesterol in HDL mass ratio 3.9 {ratio_units} Abnormal 0.0-3.6 [facility] Work Phone: Comment on above: LDL/HDL Ratio Men Wo men 1/2 Avg.Risk 1.0 1.5 Avg.Risk 3.6 3.2 2X Avg.Risk 6.2 5.0 3X Avg.Risk 8.0 6.1 PATIENT WAS FASTINGP ERFORMED BY: GUS [facility] Hsppmq6979 [address] [facility] [place] [id number] Cholesterol in VLDL mass conc 27 mg/dL Normal 5-40 [facility] Work Phone: Comment on above: PATIENT WAS FASTINGP ERFORMED BY: GUS [facility] Xziems8916 [address] [facility]in [place] [id number] Cholesterol mass conc 183 mg/dL Normal 100-199 [facility] prehensive Internal Medicine Work Phone: Comment on above: PATIENT WAS FASTINGP ERFORMED BY: GUS [facility] Xdbnrl[address] [facility] [id number] Triglyceride mass conc 133 mg/dL Normal 0-149 [facility] Work Phone: Comment on above: PATIENT WAS FASTINGP ERFORMED BY: GUS LabSaint [facility] Wijluf5399 [facility] [id number] METABOLIC PANEL, COMPREHENSI VE ([id number])Ordered By: Machine Lay Out Worker on 09-03-2015 Albumin mass conc 4.2 g/dL Normal 3.5-4.8 Compreh ensive Internal Medicine Work Phone: Comment on above: PATIENT WAS FASTINGP ERFORMED BY: GUS HewittSaint [facility] Pqlwzl3581 [facility] [id number] Information: [id number] Albumin/Globulin mass ratio 1.8 {ratio} Normal 1.1-2.5 [facility] Work Phone: Comment on above: PATIENT WAS FASTINGP ERFORMED BY: GUS LabCo Ielrwn1198 [facility] [id number] Information: [id number] ALP [Catalytic activity/Vol] 75 U/L Normal 39-117 [facility] Work Phone: ALP enzyme act/vol 75 [iU]/L Normal 39-117 Compre [facility] Work Phone: Comment on above: PATIENT WAS FASTINGP ERFORMED BY: GUS LabCo Tfrqjk[address] [facility] [id number] Information: [id number] ALT [Catalytic activity/Vol] 27 U/L Normal 0-44 [facility] Internal Medicine Work Phone: ALT enzyme act/vol 27 [iU]/L Normal 0-44 [facility] Internal Medicine Work Phone: Comment on above: PATIENT WAS FASTINGP ERFORMED BY: GUS LabCo Githaa6826 [address] RoadAtrium Health Cabarrusin [place] [id number] Information: [id number] AST [Catalytic activity/Vol] 26 U/L Normal 0-40 [facility] Internal Medicine Work Phone: AST enzyme act/vol 26 [iU]/L Normal 0-40 [facility] Internal Medicine Work Phone: Comment on above: PATIENT WAS FASTINGP ERFORMED BY: GUS LabCo Nzfeup2660 [facility] [id number] Information: [id number] Bilirubin mass conc 1.1 mg/dL Normal 0.0-1.2 [facility] Internal Medicine Work Phone: Comment on above: PATIENT WAS FASTINGP ERFORMED BY: [facility]6370 [facility] [id number] Information: [id number] Calcium mass conc 9.8 mg/dL Normal 8.6-10.2 [facility] Work Phone: Comment on above: PATIENT WAS FASTINGP ERFORMED BY: LabCo Hpepyl4692 [facility] [id number] Information: [id number] Chloride molar conc 97 mmol/L Normal 97-108 Compr [facility] Internal Medicine Work Phone: Comment on above: PATIENT WAS FASTINGP ERFORMED BY: Lab[facility] Weaiow[address] [facility] [id number] Information: [id number] CO2 molar conc 25 mmol/L Normal 18-29 Comprehens [facility] Internal Medicine Work Phone: Comment on above: PATIENT WAS FASTINGP ERFORMED BY: GUS [facility]6370 [facility] [id number] Information: [id number] Creatinine mass conc 0.81 mg/dL Normal 0.76-1.27 Comp rehensive Internal Medicine Work Phone: Comment on above: PATIENT WAS FASTINGP ERFORMED BY: [place] 0630770 [facility] [id number] Information: [id number] GFR/1.73 sq M predicted among blacks CKD-EPI vol rate/area (S/P/Bld) 100 mL/min/1.73 Normal Comprehensiv e Internal Medicine Work Phone: Comment on above: PATIENT WAS FASTINGP ERFORMED BY: [place] 0630770 [facility] [id number] Information: [id number] GFR/1.73 sq M predicted among non-blacks CKD-EPI vol rate/area (S/P/Bld) 86 mL/min/1.73 Normal [facility] Work Phone: Comment on above: PATIENT WAS FASTINGP ERFORMED BY: [address] [id number] Information: [id number] Globulin (S) [Mass/Vol] 2.4 g/dL Normal 1.5-4.5 [facility] Work Phone: Comment on above: PATIENT WAS FASTINGP ERFORMED BY: [address] [id number] Information: [id number] Globulin Calculated mass conc (S) 2.4 g/dL Normal 1.5-4.5 [facility] Work Phone: Glucose mass conc 122 mg/dL Abnormal 65-99 Compreh ensive Internal Medicine Work Phone: Comment on above: PATIENT WAS FASTINGP ERFORMED BY: [place] 0630770 [facility] [id number] Information: [id number] Potassium molar conc 4.0 mmol/L Normal 3.5-5.2 Comp rehensive Internal Medicine Work Phone: Comment on above: PATIENT WAS FASTINGP ERFORMED BY: GUS Lucisinai JoaquinBhvdet0344 [facility] [id number] Information: [id number] Protein mass conc 6.6 g/dL Normal 6.0-8.5 Compreh ensive Internal Medicine Work Phone: Comment on above: PATIENT WAS FASTINGP ERFORMED BY: GUS [facility] Ajtdzd1166 [facility] [id number] Information: [id number] Sodium molar conc 137 mmol/L Normal 134-144 Compreh ensive Internal Medicine Work Phone: Comment on above: PATIENT WAS FASTINGP ERFORMED BY: GUS MarcelinaSaint John'S Health System Utgtlp0465 [facility] [id number] Information: [id number] Urea nitrogen mass conc 15 mg/dL Normal 8-27 [facility] Work Phone: Comment on above: PATIENT WAS FASTINGP ERFORMED BY: GUS HewittSaint John'S Health System Jvskhh6891 [facility] [id number] Information: [id number] Urea nitrogen/Creatinine mass ratio 19 mg/mg Normal 10-22 [facility] Work Phone: Comment on above: PATIENT WAS FASTINGP ERFORMED BY: GUS [facility] Lklnuo9142 [facility] [id number] Information: [id number] TSH (20152)Ordered By: Nellie m Network Solutions Architect on 09-03-2015 Thyrotropin Qn 2.150 {uIU/mL} Normal 0.450-4.50 0 [facility] Work Phone: Comment on above: PATIENT WAS FASTINGP ERFORMED BY: GUS [facility] Ceoglu0440 [facility] [id number] Office Visit: Aric 08-19-19 16 Tobacco smoking status NHIS Never smoker [facility] Work Phone: Tobacco use CPHS Never smoker Invalid Interpretation Code [facility] Work Phone: Replaced Document: Paty Martinez 08-19-2015 EKG QRS axis 30 deg [facility] Work Phone: electrocardiogram interpretation Atrial Bradycardia -First degree A-V block P:QRS - 1:1, Abnormal P axis, H Rate 51 Gertrudis = 232BORDERLINE RHYTHM Invalid Interpretation Code [facility] Work Phone: GE use only - for LinkLogic import when terms are not otherwise specified 419 ms Invalid Interpretation Code [facility] Work Phone: Interpretation Atrial Bradycardia - First degree A-V block P:QRS - 1:1, Abnormal P axis, H Rate 51 Gertrudis = 232BORDERLINE RHYTHM [facility] Work Phone: P [place] -40 deg [facility] Work Phone: P wave axis, electrocardiogram -40 deg Invalid Interpretation Code [facility] Work Phone: FL Interval 232 ms [facility] Work Phone: FL interval, electrocardiogram 232 ms Invalid Interpretation Code [facility] Work Phone: Pulse (Heart Rate) 51 /min Invalid Interpretation Code [facility] Work Phone: QRS axis, electrocardiogram 30 deg Invalid Interpretation Code [facility] Work Phone: QRS Duration 94 ms [facility] Work Phone: QRS duration, electrocardiogram 94 ms Invalid Interpretation Code [facility] Work Phone: QT Interval new path ms [facility] Work Phone: QT interval, electrocardiogram new path ms Invalid Interpretation Code [facility] Work Phone: QTc Walter 419 ms [facility] Work Phone: T [place] 19 deg [facility] Work Phone: T wave axis, electrocardiogram 19 deg Invalid Interpretation Code [facility] Work Phone: CBC W/AUTO DIFF WBC ([id number])O rdered By: Machine Lay Out Worker on 05-13-2015 Basophils (Bld) [#/Vol] 0.0 {x10E3/uL} Normal 0.0-0.2 [facility] Work Phone: Comment on above: PATIENT WAS FASTINGP ERFORMED BY: GUS [address] [id number] Information: [id number] Basophils (Bld) [#/Vol] 0.0 10*3/uL Normal 0.0-0.2 [facility] Work Phone: Basophils Auto #/vol (Bld) 0.0 {x10E3/uL} Normal 0.0-0.2 [facility] Work Phone: Basophils/100 WBC (Bld) 1 % Normal [facility] Work Phone: Comment on above: PATIENT WAS FASTINGP ERFORMED BY: [address] [id number] Information: [id number] Basophils/100 WBC Auto (Bld) 1 % Normal [facility] Work Phone: Eosinophils (Bld) [#/Vol] 0.3 {x10E3/uL} Normal 0.0-0.4 [facility] Work Phone: Comment on above: PATIENT WAS FASTINGP ERFORMED BY: GUS [address] [id number] Information: [id number] Eosinophils (Bld) [#/Vol] 0.3 10*3/uL Normal 0.0-0.4 [facility] Work Phone: Eosinophils Auto #/vol (Bld) 0.3 {x10E3/uL} Normal 0.0-0.4 [facility] Work Phone: Eosinophils/100 WBC (Bld) 5 % Normal [facility] Work Phone: Comment on above: PATIENT WAS FASTINGP ERFORMED BY: [address] [id number] Information: [id number] Eosinophils/100 WBC Auto (Bld) 5 % Normal [facility] Work Phone: Erythrocyte distribution width (RBC) [Ratio] 13.8 % Normal 12.3-15.4 [facility] Internal Medicine Work Phone: Comment on above: PATIENT WAS FASTINGP ERFORMED BY: GUS [place] 5037870 [facility] [id number] Information: [id number] Erythrocyte distribution width Auto Ratio (RBC) 13.8 % Normal 12.3-15.4 [facility] Work Phone: Hematocrit (Bld) [Volume fraction] 41.4 % Normal 37.5-51.0 [facility] Internal Medicine Work Phone: Comment on above: PATIENT WAS FASTINGP ERFORMED BY: GUS [facility] Dqlbpy9351 [facility] [id number] Information: [id number] Hematocrit Auto Volume Fraction (Bld) 41.4 % Normal 37.5-51.0 [facility] Internal Medicine Work Phone: Hemoglobin mass conc (Bld) 14.0 g/dL Normal 12.6-17.7 [facility] Internal Medicine Work Phone: Comment on above: PATIENT WAS FASTINGP ERFORMED BY: GUS [facility]6370 [facility] [id number] Information: [id number] Immature granulocytes #/vol (Bld) 0.0 {x10E3/uL} Normal 0.0-0.1 [facility] Work Phone: Comment on above: PATIENT WAS FASTINGP ERFORMED BY: GSU [facility]6370 [facility] [id number] Information: [id number] Immature granulocytes (Bld) [#/Vol] 0.0 10*3/uL Normal 0.0-0.1 [facility] Work Phone: Immature granulocytes/100 WBC (Bld) 0 % Normal [facility] Work Phone: Comment on above: PATIENT WAS FASTINGP ERFORMED BY: GUS [facility] Cdnwrm4165 [facility] [id number] Information: [id number] Lymphocytes (Bld) [#/Vol] 1.9 {x10E3/uL} Normal 0.7-3.1 [facility] Work Phone: Comment on above: PATIENT WAS FASTINGP ERFORMED BY: GUS [place] 5037870 [facility] [id number] Information: [id number] Lymphocytes (Bld) [#/Vol] 1.9 10*3/uL Normal 0.7-3.1 [facility] Work Phone: Lymphocytes Auto #/vol (Bld) 1.9 {x10E3/uL} Normal 0.7-3.1 [facility] Work Phone: Lymphocytes/100 WBC (Bld) 34 % Normal [facility] Work Phone: Comment on above: PATIENT WAS FASTINGP ERFORMED BY: GUS [place] 5037870 [facility] [id number] Information: [id number] Lymphocytes/100 WBC Auto (Bld) 34 % Normal [facility] Work Phone: MCH (RBC) [Entitic mass] 31.0 pg Normal 26.6-33.0 [facility] Work Phone: Comment on above: PATIENT WAS FASTINGP ERFORMED BY: GUS [facility]6370 [facility] [id number] Information: [id number] MCH Auto Entitic mass (RBC) 31.0 pg Normal 26.6-33.0 [facility] Work Phone: MCHC (RBC) [Mass/Vol] 33.8 g/dL Normal 31.5-35.7 [facility] prehensive Internal Medicine Work Phone: Comment on above: PATIENT WAS FASTINGP ERFORMED BY: [facility]6370 [facility] [id number] Information: [id number] MCHC Auto mass conc (RBC) 33.8 g/dL Normal 31.5-35.7 [facility] Work Phone: MCV (RBC) [Entitic vol] 92 fL Normal 79-97 [facility] Work Phone: Comment on above: PATIENT WAS FASTINGP ERFORMED BY: [facility]6370 [facility] [id number] Information: [id number] MCV Auto Entitic volume (RBC) 92 fL Normal 79-97 [facility] Work Phone: Monocytes (Bld) [#/Vol] 0.8 {x10E3/uL} Normal 0.1-0.9 [facility] Work Phone: Comment on above: PATIENT WAS FASTINGP ERFORMED BY: [facility]6370 [facility] [id number] Information: [id number] Monocytes (Bld) [#/Vol] 0.8 10*3/uL Normal 0.1-0.9 [facility] Work Phone: Monocytes Auto #/vol (Bld) 0.8 {x10E3/uL} Normal 0.1-0.9 [facility] Work Phone: Monocytes/100 WBC (Bld) 14 % Normal [facility] Work Phone: Comment on above: PATIENT WAS FASTINGP ERFORMED BY: [facility]6370 [facility] [id number] Information: [id number] Monocytes/100 WBC Auto (Bld) 14 % Normal [facility] Work Phone: Neutrophils (Bld) [#/Vol] 2.6 {x10E3/uL} Normal 1.4-7.0 [facility] Work Phone: Comment on above: PATIENT WAS FASTINGP ERFORMED BY: CB [facility]6370 [facility] [id number] Information: [id number] Neutrophils (Bld) [#/Vol] 2.6 10*3/uL Normal 1.4-7.0 [facility] Work Phone: Neutrophils Auto #/vol (Bld) 2.6 {x10E3/uL} Normal 1.4-7.0 [facility] Work Phone: Neutrophils/100 WBC (Bld) 46 % Normal [facility] Work Phone: Comment on above: PATIENT WAS FASTINGP ERFORMED BY: GUS [place] 5037870 [facility] [id number] Information: [id number] Neutrophils/100 WBC Auto (Bld) 46 % Normal [facility] Work Phone: Platelets (Bld) [#/Vol] 275 {x10E3/uL} Normal 150-379 Comprehensive Internal Medicine Work Phone: Comment on above: PATIENT WAS FASTINGP ERFORMED BY: GUS [facility]6370 [facility] [id number] Information: [id number] Platelets (Bld) [#/Vol] 275 10*3/uL Normal 150-379 [facility] Work Phone: Platelets Auto #/vol (Bld) 275 {x10E3/uL} Normal 150-379 [facility] Work Phone: RBC (Bld) [#/Vol] 4.51 {x10E6/uL} Normal 4.14-5.80 [facility] Internal Medicine Work Phone: Comment on above: PATIENT WAS FASTINGP ERFORMED BY: GUS [facility]6370 [facility] [id number] Information: [id number] RBC (Bld) [#/Vol] 4.51 10*6/uL Normal 4.14-5.80 [facility] Internal Medicine Work Phone: RBC Auto #/vol (Bld) 4.51 {x10E6/uL} Normal 4.14-5.80 [facility] Work Phone: WBC (Bld) [#/Vol] 5.6 {x10E3/uL} Normal 3.4-10.8 Com prehensive Internal Medicine Work Phone: Comment on above: PATIENT WAS FASTINGP ERFORMED BY: LabCoBayonne Medical CenterXnbcos3397 [facility] [id number] Information: [id number] WBC (Bld) [#/Vol] 5.6 10*3/uL Normal 3.4-10.8 [facility] Internal Medicine Work Phone: WBC Auto #/vol (Bld) 5.6 {x10E3/uL} Normal 3.4-10.8 [facility] Work Phone: Lipid PanelOrdered By: Nellie oliveira Network Solutions Architect on 05-13-2015 Cholesterol in HDL mass conc 32 mg/dL Abnormal [facility] Work Phone: Comment on above: According to ATP-III Guidelines, HDL-C >59 mg/dL is considered anegative risk factor for CHD. Cholesterol in LDL mass conc 120 mg/dL Abnormal 0-99 [facility] Work Phone: Comment on above: Effective May 24, 2015 the reference interval for LDL Cholesterol Calc will be changing to: 0 - 19 years 0 - 109 >19 years 0 - 99 Cholesterol in VLDL mass conc 28 mg/dL Normal 5-40 [facility] Work Phone: Cholesterol mass conc 180 mg/dL Normal 100-199 [facility] prehensive Internal Medicine Work Phone: Comment on above: Effective May 24, 2015 the reference interval for Cholesterol, Total will be changing to: 0 - 19 years 100 - 169 >19 years 100 - 199 Triglyceride mass conc 139 mg/dL Normal 0-149 [facility] Work Phone: Comment on above: Effective May 24, 2015 the reference interval for Triglycerides will be changing to: 0 - 9 years 0 - 74 10 - 19 years 0 - 89 >19 years 0 - 149 METABOLIC PANEL, COMPREHENSI VE ([id number])Ordered By: Machine Lay Out Worker on 05-13-2015 Albumin mass conc 4.4 g/dL Normal 3.5-4.8 [facility] Internal Medicine Work Phone: Comment on above: PATIENT WAS FASTINGP ERFORMED BY: GUS [facility] Uikjzt3789 [address]va RoadDublin [place] [id number] Albumin/Globulin mass ratio 1.7 {ratio} Normal 1.1-2.5 [facility] Internal Medicine Work Phone: Comment on above: PATIENT WAS FASTINGP ERFORMED BY: GUS [facility] Aeebpo3680 [address] RoadDublin [place] [id number] ALP [Catalytic activity/Vol] 62 U/L Normal 39-117 [facility] Work Phone: ALP enzyme act/vol 62 [iU]/L Normal 39-117 [facility] Internal Medicine Work Phone: Comment on above: PATIENT WAS FASTINGP ERFORMED BY: GUS [facility] Crsvci6239 [address] RoadDublin [place] [id number] ALT [Catalytic activity/Vol] 24 U/L Normal 0-44 [facility] Internal Medicine Work Phone: ALT enzyme act/vol 24 [iU]/L Normal 0-44 [facility] Internal Medicine Work Phone: Comment on above: PATIENT WAS FASTINGP ERFORMED BY: LabCo Ckvbgy9891 [address] RoadDublin [place] [id number] AST [Catalytic activity/Vol] 29 U/L Normal 0-40 [facility] Work Phone: AST enzyme act/vol 29 [iU]/L Normal 0-40 [facility] Internal Medicine Work Phone: Comment on above: PATIENT WAS FASTINGP ERFORMED BY: GUS [facility] Tzkhpn1242 [address] RoadDublin [place] [id number] Bilirubin mass conc 1.0 mg/dL Normal 0.0-1.2 [facility] Internal Medicine Work Phone: Comment on above: PATIENT WAS FASTINGP ERFORMED BY: GUS [facility] Azdnkc3056 [address] [facility]in [place] [id number] Calcium mass conc 10.0 mg/dL Normal 8.6-10.2 Compreh ensive Internal Medicine Work Phone: Comment on above: PATIENT WAS FASTINGP ERFORMED BY: GUS [facility] Tbekcm4165 [address] RoadAtrium Health Cabarrusin [place] [id number] Chloride molar conc 98 mmol/L Normal 97-108 Compr ehensive Internal Medicine Work Phone: Comment on above: PATIENT WAS FASTINGP ERFORMED BY: GUS [facility] Dcxnve9627 [address] [facility] [place] [id number] CO2 molar conc 24 mmol/L Normal 18-29 Comprehens yamileth Internal Medicine Work Phone: Comment on above: PATIENT WAS FASTINGP ERFORMED BY: GUS [facility] Cocklp9258 [facility] [id number] Creatinine mass conc 0.93 mg/dL Normal 0.76-1.27 Comp [facility] hospitalensive Internal Medicine Work Phone: Comment on above: PATIENT WAS FASTINGP ERFORMED BY: LabSaint [facility] Yosynn[address] [facility] [id number] GFR/1.73 sq M predicted among blacks CKD-EPI vol rate/area (S/P/Bld) 93 mL/min/1.73 Normal Comprehensiv e Internal Medicine Work Phone: Comment on above: PATIENT WAS FASTINGP ERFORMED BY: LabCo [address]ztqdl[address] [facility] [id number] GFR/1.73 sq M predicted among non-blacks CKD-EPI vol rate/area (S/P/Bld) 80 mL/min/1.73 Normal [facility] Work Phone: Comment on above: PATIENT WAS FASTINGP ERFORMED BY: [facility] Znwajs2792 [address] [facility] [place] [id number] Globulin (S) [Mass/Vol] 2.6 g/dL Normal 1.5-4.5 [facility] Work Phone: Comment on above: PATIENT WAS FASTINGP ERFORMED BY: GUS LabSaint [facility] Olzkuc7341 [facility] [id number] Globulin Calculated mass conc (S) 2.6 g/dL Normal 1.5-4.5 [facility] Work Phone: Glucose mass conc 127 mg/dL Abnormal 65-99 Compreh ensive Internal Medicine Work Phone: Comment on above: PATIENT WAS FASTINGP ERFORMED BY: GUS [facility]Har[facility]6370 [facility] [id number] Potassium molar conc 4.5 mmol/L Normal 3.5-5.2 Comp rehensive Internal Medicine Work Phone: Comment on above: PATIENT WAS FASTINGP ERFORMED BY: GUS Luci Vmyzld8134 [facility] [id number] Protein mass conc 7.0 g/dL Normal 6.0-8.5 Compreh ensive Internal Medicine Work Phone: Comment on above: PATIENT WAS FASTINGP ERFORMED BY: GUS MarcelinaHarper University Hospital6370 [facility] [id number] Sodium molar conc 140 mmol/L Normal 134-144 Compreh ensive Internal Medicine Work Phone: Comment on above: PATIENT WAS FASTINGP ERFORMED BY: GUS Luci Yksvhj5575 [facility] [id number] Urea nitrogen mass conc 15 mg/dL Normal 8-27 [facility] Work Phone: Comment on above: PATIENT WAS FASTINGP ERFORMED BY: GUS LabHar[facility] Hospital6370 [facility] [id number] Urea nitrogen/Creatinine mass ratio 16 mg/mg Normal 10-22 [facility] Work Phone: Comment on above: PATIENT WAS FASTINGP ERFORMED BY: GUS LabSaint [facility] Vdibdf1796 [facility] [id number] MICROALBUMINOrdered By: Syst em Network Solutions Architect on 05-13-2015 Albumin DL <= 20 mg/L mass conc (U) 4.1 ug/mL Normal 0.0-17.0 [facility] Work Phone: Comment on above: PATIENT WAS FASTINGP ERFORMED BY: GUS [facility] Ebsnyk[address] Gymtrackin [place] [id number] Albumin/Creatinine mass ratio (U) 3.8 {mg/g_creat} Normal 0.0-30.0 [facility] Work Phone: Comment on above: PATIENT WAS FASTINGP ERFORMED BY: CB [facility] Bilond[address] NeighborMDAtrium Health [place] [id number] Creatinine mass conc (U) 109.0 mg/dL Normal 22.0-328.0 [facility] Work Phone: Comment on above: PATIENT WAS FASTINGP ERFORMED BY: GUS [facility] Bokzkg1505 [address] NeighborMDAtrium Health [place] [id number] Written AuthorizationOrdered By: Machine Lay Out Worker on 05-13-2015 Written Authorization WAR Normal [facility] prehensive Internal Medicine Work Phone: Comment on above: Written Authorizatio n Received.Authorization received from YANY VILLAREAL CMA [id number] by Adelaida Mckinney Office Visiton 02-18-2015 Dietary management education, guidance, and counseling (procedure) yes Invalid Interpretation Code [facility] Work Phone: CBC With Differential/Platel etOrdered By: Machine Lay Out Worker on 12-25-2014 Basophils Auto #/vol (Bld) 0.0 {x10E3/uL} Normal 0.0-0.2 [facility] Work Phone: Basophils/100 WBC Auto (Bld) 1 % Normal [facility] Work Phone: Eosinophils Auto #/vol (Bld) 0.2 {x10E3/uL} Normal 0.0-0.4 [facility] Work Phone: Eosinophils/100 WBC Auto (Bld) 5 % Normal [facility] Work Phone: Erythrocyte distribution width Auto Ratio (RBC) 13.4 % Normal 12.3-15.4 [facility] Work Phone: Hematocrit Auto Volume Fraction (Bld) 40.6 % Normal 37.5-51.0 Comprehens yamileth Internal Medicine Work Phone: Hemoglobin mass conc (Bld) 13.7 g/dL Normal 12.6-17.7 [facility] Work Phone: Immature granulocytes #/vol (Bld) 0.0 {x10E3/uL} Normal 0.0-0.1 [facility] Work Phone: Immature granulocytes/100 WBC (Bld) 0 % Normal [facility] Work Phone: Lymphocytes Auto #/vol (Bld) 1.5 {x10E3/uL} Normal 0.7-3.1 [facility] Work Phone: Lymphocytes/100 WBC Auto (Bld) 34 % Normal [facility] Work Phone: MCH Auto Entitic mass (RBC) 30.2 pg Normal 26.6-33.0 [facility] Work Phone: MCHC Auto mass conc (RBC) 33.7 g/dL Normal 31.5-35.7 [facility] Work Phone: MCV Auto Entitic volume (RBC) 89 fL Normal 79-97 [facility] Work Phone: Monocytes Auto #/vol (Bld) 0.6 {x10E3/uL} Normal 0.1-0.9 [facility] Work Phone: Monocytes/100 WBC Auto (Bld) 13 % Normal [facility] Work Phone: Neutrophils Auto #/vol (Bld) 2.1 {x10E3/uL} Normal 1.4-7.0 [facility] Work Phone: Neutrophils/100 WBC Auto (Bld) 47 % Normal [facility] Work Phone: Platelets Auto #/vol (Bld) 319 {x10E3/uL} Normal 150-379 [facility] Work Phone: RBC Auto #/vol (Bld) 4.54 {x10E6/uL} Normal 4.14-5.80 [facility] Work Phone: WBC Auto #/vol (Bld) 4.6 {x10E3/uL} Normal 3.4-10.8 [facility] Work Phone: Comp. Metabolic Panel (14)Or dered By: Machine Lay Out Worker on 12-25-2014 Albumin mass conc 4.3 g/dL Normal 3.5-4.8 Compreh ensive Internal Medicine Work Phone: Albumin/Globulin mass ratio 1.7 {ratio} Normal 1.1-2.5 [facility] Work Phone: ALP enzyme act/vol 69 [iU]/L Normal 39-117 Compre [facility] Internal Medicine Work Phone: ALT enzyme act/vol 24 [iU]/L Normal 0-44 Compre [facility] Internal Medicine Work Phone: AST enzyme act/vol 27 [iU]/L Normal 0-40 Compre [facility] Internal Medicine Work Phone: Bilirubin mass conc 1.3 mg/dL Abnormal 0.0-1.2 Compr ensive Internal Medicine Work Phone: Calcium mass conc 10.0 mg/dL Normal 8.6-10.2 Compreh ensive Internal Medicine Work Phone: Chloride molar conc 97 mmol/L Normal 97-108 Compr ensive Internal Medicine Work Phone: CO2 molar conc 25 mmol/L Normal 18-29 Comprehens yamileth Internal Medicine Work Phone: Creatinine mass conc 0.81 mg/dL Normal 0.76-1.27 Comp [facility] hospitalensive [facility] Work Phone: GFR/1.73 sq M predicted among blacks CKD-EPI vol rate/area (S/P/Bld) 101 mL/min/1.73 Normal Comprehensiv e Internal Medicine Work Phone: GFR/1.73 sq M predicted among non-blacks CKD-EPI vol rate/area (S/P/Bld) 87 mL/min/1.73 Normal [facility] Work Phone: Globulin Calculated mass conc (S) 2.6 g/dL Normal 1.5-4.5 [facility] Work Phone: Glucose mass conc 116 mg/dL Abnormal 65-99 Compreh ensive Internal Medicine Work Phone: Potassium molar conc 3.8 mmol/L Normal 3.5-5.2 Comp rehensive Internal Medicine Work Phone: Protein mass conc 6.9 g/dL Normal 6.0-8.5 Compreh ensive Internal Medicine Work Phone: Sodium molar conc 137 mmol/L Normal 134-144 Compreh ensive Internal Medicine Work Phone: Urea nitrogen mass conc 15 mg/dL Normal 8-27 [facility] Work Phone: Urea nitrogen/Creatinine mass ratio 19 mg/mg Normal 10-22 [facility] Work Phone: HgA1C , Office ([id number])Ordere d By: Yany Weber on 12-25-2014 Hemoglobin A1c/Hemoglobin.total mass fraction (Bld) 6.2 % Normal 4.6 - 7.1 Comprehensiv e Internal Medicine Work Phone: Lipid Panel With LDL/HDL Rat ioOrdered By: Machine Lay Out Worker on 12-25-2014 Cholesterol in HDL mass conc 31 mg/dL Abnormal [facility] Work Phone: Comment on above: According to ATP-III Guidelines, HDL-C >59 mg/dL is considered anegative risk factor for CHD. Cholesterol in LDL mass conc 125 mg/dL Abnormal 0-99 [facility] Work Phone: Cholesterol in LDL/Cholesterol in HDL mass ratio 4.0 {ratio_units} Abnormal 0.0-3.6 [facility] Work Phone: Comment on above: LDL/HDL Ratio Men Wo men 1/2 Avg.Risk 1.0 1.5 Avg.Risk 3.6 3.2 2X Avg.Risk 6.2 5.0 3X Avg.Risk 8.0 6.1 Cholesterol in VLDL mass conc 33 mg/dL Normal 5-40 [facility] Work Phone: Cholesterol mass conc 189 mg/dL Normal 100-199 Com prehensive Internal Medicine Work Phone: Triglyceride mass conc 167 mg/dL Abnormal 0-149 [facility] Work Phone: Microalb/Creat Ratio, Randm UrOrdered By: Machine Lay Out Worker on 12-25-2014 Albumin DL <= 20 mg/L mass conc (U) 6.1 ug/mL Normal 0.0-17.0 [facility] Work Phone: Albumin/Creatinine mass ratio (U) 7.9 {mg/g_creat} Normal 0.0-30.0 [facility] Work Phone: Creatinine mass conc (U) 77.6 mg/dL Normal 22.0-328.0 [facility] Work Phone: Microscopic ExaminationOrder ed By: Machine Lay Out Worker on 12-25-2014 Bacteria LM.HPF #/area (Urine sed) None seen Normal [facility] Work Phone: Epithelial cells LM.HPF #/area (Urine sed) None seen Normal 0 - 10 [facility] Work Phone: Mucus LM Ql (Urine sed) Present Normal [facility] Work Phone: RBC LM.HPF #/area (Urine sed) None seen Normal 0 - 2 [facility] Work Phone: WBC LM.HPF #/area (Urine sed) None seen Normal 0 - 5 [facility] Work Phone: TSHOrdered By: System Manage r on 12-25-2014 Thyrotropin Qn 1.720 {uIU/mL} Normal 0.450-4.50 0 [facility] Work Phone: Urinalysis, CompleteOrdered By: Machine Lay Out Worker on 12-25-2014 Appearance Nom (U) Clear Normal Compre hensive Internal Medicine Work Phone: Bilirubin Ql (U) Negative Normal Comprehe nsive Internal Medicine Work Phone: Color Nom (U) Yellow Normal Comprehensi ve Internal Medicine Work Phone: Glucose Ql (U) Negative Normal Comprehens [facility] Internal Medicine Work Phone: Hemoglobin Test strip Ql (U) Negative Normal [facility] Work Phone: Ketones Ql (U) Negative Normal Comprehens [facility] Internal [facility] Work Phone: Leukocyte esterase Test strip Ql (U) Negative Normal [facility] Work Phone: Microscopic observation LM Nom (Urine sed) MICRON Normal [facility] Work Phone: Comment on above: Microscopic follows if indicated. Microscopic observation LM Nom (Urine sed) See below: Normal [facility] Work Phone: Comment on above: Microscopic was kylah cated and was performed. Nitrite Test strip Ql (U) Negative Normal [facility] Work Phone: pH Test strip (U) 7.0 [pH] Normal 5.0-7.5 Compreh ensive Internal Medicine Work Phone: Protein Test strip Ql (U) Negative Normal [facility] Work Phone: Specific gravity Relative Density (U) 1.015 1 Normal 1.005-1.03 0 [facility] Work Phone: Urobilinogen Test strip mass conc (U) 1.0 mg/dL Normal 0.0-1.9 Comprehensiv e Internal Medicine Work Phone: Calcium Serum ([id number])Ordered By: Machine Lay Out Worker on 09-28-2014 Calcium mass conc 10.0 mg/dL Normal 8.6-10.2 Compreh ensive Internal Medicine Work Phone: Comment on above: PATIENT NOT FASTINGP ERFORMED BY: [facility]6370 [facility] [id number] Information: [id number]; calcium normal, will review at upcoming appt PSA,Total - Annual ScreenOrd ered By: Machine Lay Out Worker on 09-28-2014 PSA,Total - Annual Screen 3.69 ng/mL Normal 0.00-4.00 [facility] Work Phone: Comment on above: This test was perfor med using the TPSA assay method for theKeen ImpressionsSoCAT chemistry system. Values obtained with differentassay methods cannot be used interchangably.When changing PSA assays in the course of monitoring apatient, additional sequential testing should be carriedout to confirm baseline values. Testosterone, Serum TotalOrd ered By: Machine Lay Out Worker on 09-28-2014 Testosterone mass conc 330 ng/dL Normal 241-827 [facility] Work Phone: Office Visit: [facility] 08-18-19 15 Tobacco smoking status NHIS Never Invalid Interpretation Code [facility] Work Phone: Clinical Lists Update: Prelo clutch rebuilder 08-07-2014 Albumin mass conc 4.6 g/dL Normal 3.5-4.8 [facility] Work Phone: Comment on above: PATIENT NOT FASTINGP ERFORMED BY: Patient Home Monitoring[address] GymtrackECU Health [id number] Information: [id number], [id number] Albumin/Globulin mass ratio 1.6 {ratio} Normal 1.1-2.5 [facility] Work Phone: Comment on above: PATIENT NOT FASTINGP ERFORMED BY: Attolight6370 [address]vaTimberFish TechnologiesAtrium Health [place] [id number] Information: [id number], [id number] Alkaline phosphatase (ALP) 61 U/L Normal 39-117 [facility] Work Phone: ALT enzyme act/vol 24 U/L Normal 0-44 [facility] Work Phone: AST enzyme act/vol 29 U/L Normal 0-40 [facility] Work Phone: Bilirubin mass conc 1.2 mg/dL Normal 0.0-1.2 [facility] Work Phone: Comment on above: PATIENT NOT FASTINGP ERFORMED BY: Attolight6370 [address] NeighborMDAtrium Health [place] [id number] Information: [id number], [id number] Calcium mass conc 10.4 mg/dL Abnormal 8.6-10.2 [facility] Work Phone: Comment on above: Effective August 17, 2014 the reference interval for Calcium, Serum will be changing to: Age Male Female 0 - 10 days 8.6 - 10.4 8.6 - 10.4 11 days - 1 year 9.2 - 11.0 9.2 - 11.0 2 - 11 years 9.1 - 10.5 9.1 - 10.5 12 - 17 years 8.9 - 10.4 8.9 - 10.4 18 - 59 years 8.7 - 10.2 8.7 - 10.2 >59 years 8.6 - 10.2 8.7 - 10.3 PATIENT NOT FASTINGP ERFORMED BY: LabCoBayonne Medical CenterTxvgvz5392 [facility] [id number] Information: [id number], [id number] Chloride molar conc 98 mmol/L Normal 97-108 [facility] Work Phone: Comment on above: PATIENT NOT FASTINGP ERFORMED BY: LabCarlos Ville 1293270 [facility] [id number] Information: [id number] CO2 27 mmol/L Normal 18-29 [facility] Work Phone: Comment on above: PATIENT NOT FASTINGP ERFORMED BY: LabHarper [facility] Hospital6370 [facility] [id number] Information: [id number], [id number] Creatinine mass conc 1.01 mg/dL Normal 0.76-1.27 [facility]Plushavenwy[facility] Work Phone: Comment on above: PATIENT NOT FASTINGP ERFORMED BY: [facility]6370 [facility] [id number] Information: [id number] Globulin 2.8 g/dL Normal 1.5-4.5 [facility] Work Phone: Globulin mass conc (S) 2.8 g/dL Normal 1.5-4.5 [facility] Work Phone: Comment on above: PATIENT NOT FASTINGP ERFORMED BY: LabHarper [facility] Hospital6370 [facility] [id number] Information: [id number], [id number] Potassium molar conc 4.8 mmol/L Normal 3.5-5.2 [facility] Work Phone: Comment on above: PATIENT NOT FASTINGP ERFORMED BY: CB [facility] Spfete[address] [facility] [id number] Information: [id number], [id number] Protein mass conc 7.4 g/dL Normal 6.0-8.5 [facility] Work Phone: Comment on above: PATIENT NOT FASTINGP ERFORMED BY: CB [facility] Cqctrq[address] [facility] [id number] Information: [id number], [id number] Sodium molar conc 141 mmol/L Normal 134-144 [facility] Work Phone: Comment on above: PATIENT NOT FASTINGP ERFORMED BY: CB [facility] Peekzi3285 [facility] [id number] Information: [id number], [id number] Urea nitrogen mass conc 16 mg/dL Normal 8-27 [facility] Work Phone: Comment on above: PATIENT NOT FASTINGP ERFORMED BY: CB [facility] Pcjrix0544 [facility] [id number] Information: [id number], [id number] Urea nitrogen/Creatinine mass ratio 16 mg/mg Normal 10-22 [facility] Work Phone: Comment on above: PATIENT NOT FASTINGP ERFORMED BY: CB [facility] Sfmmlx9208 [facility] [id number] Information: [id number], [id number] ALP enzyme act/vol (Bld) 61 U/L [facility] Work Phone: CO2 ppres (BldV) 27 mmol/L [facility] Work Phone: Glucose 107 mg/dL High [facility] Work Phone: Thyrotropin Qn 1.930 u[iU]/mL Invalid Interpretation Code [facility] Work Phone: Metabolic Panel, Comprehensi ve ([id number])Ordered By: Machine Lay Out Worker on 08-07-2014 ALP enzyme act/vol 61 [iU]/L Normal 39-117 [facility] Internal [facility] Work Phone: Comment on above: PATIENT NOT FASTINGP ERFORMED BY: CB [facility] [address]rjl[address] [facility] [id number] Information: [id number], [id number] ALT enzyme act/vol 24 [iU]/L Normal 0-44 [facility] Work Phone: Comment on above: PATIENT NOT FASTINGP ERFORMED BY: CB [facility] [address]whjml[address] [facility] [id number] Information: [id number], [id number] AST enzyme act/vol 29 [iU]/L Normal 0-40 [facility] Work Phone: Comment on above: PATIENT NOT FASTINGP ERFORMED BY: CB [facility] Glxpbo7200 [facility] [id number] Information: [id number], [id number] GFR/1.73 sq M predicted among blacks CKD-EPI vol rate/area (S/P/Bld) 84 mL/min/1.73 Normal Comprehensiv e Internal Medicine Work Phone: Comment on above: PATIENT NOT FASTINGP ERFORMED BY: CB [facility] Rammvu9359 [facility] [id number] Information: [id number], [id number] GFR/1.73 sq M predicted among non-blacks CKD-EPI vol rate/area (S/P/Bld) 72 mL/min/1.73 Normal [facility] Work Phone: Comment on above: PATIENT NOT FASTINGP ERFORMED BY: CB [facility] Wetzlg[address] [facility] [id number] Information: [id number], [id number] Glucose mass conc 107 mg/dL Abnormal 65-99 [facility] Work Phone: Comment on above: PATIENT NOT FASTINGP ERFORMED BY: CB [facility] Bimujy[address] [facility] [id number] Information: [id number], [id number] PHOSPHORUS ([id number])Ordered By : Machine Lay Out Worker on 08-07-2014 Phosphate mass conc 3.0 mg/dL Normal 2.5-4.5 Compr [facility] Internal Medicine Work Phone: Comment on above: PATIENT NOT FASTINGP ERFORMED BY: CB [facility] Hczvsx6487 [address]va RoadDublin [place] [id number] PTH (PARATHORMONE) ([id number])Or dered By: Machine Lay Out Worker on 08-07-2014 Parathyrin.intact mass conc 31 pg/mL Normal 15-65 [facility] Work Phone: Comment on above: PATIENT NOT FASTINGP ERFORMED BY: CB [facility] Xozuab6472 [address] RoadDublin [place] [id number] Protein Electrophoresis, Ser um (SPEP) ([id number])Ordered By: Machine Lay Out Worker on 08-07-2014 Albumin mass conc 4.4 g/dL Normal 3.2-5.6 [facility] Work Phone: Comment on above: PATIENT NOT FASTINGP ERFORMED BY: CB [facility] Jhufko0548 [address] RoadDublin [place] [id number] Albumin/Globulin mass ratio 1.5 {ratio} Normal 0.7-2.0 [facility] Work Phone: Comment on above: PATIENT NOT FASTINGP ERFORMED BY: CB [facility] Vaoopv8176 [address] RoadDublin [place] [id number] Alpha 1 globulin Elph mass conc 0.2 g/dL Normal 0.1-0.4 [facility] Work Phone: Comment on above: PATIENT NOT FASTINGP ERFORMED BY: CB [facility] Lwlzns7258 [address] RoadDublin [place] [id number] Alpha 2 globulin Elph mass conc 0.8 g/dL Normal 0.4-1.2 [facility] Work Phone: Comment on above: PATIENT NOT FASTINGP ERFORMED BY: CB [facility] Lamngb4378 [address] RoadDublin [place] [id number] Beta globulin Elph mass conc 1.1 g/dL Normal 0.6-1.3 [facility] Work Phone: Comment on above: PATIENT NOT FASTINGP ERFORMED BY: GUS [facility] Szzbmm6835 [address] Roadblin [place] [id number] Gamma globulin Elph mass conc 1.0 g/dL Normal 0.5-1.6 [facility] Work Phone: Comment on above: PATIENT NOT FASTINGP ERFORMED BY: [facility] Bcpkic8544 [address]blin [place] [id number] Globulin (S) [Mass/Vol] 3.0 g/dL Normal 2.0-4.5 [facility] Work Phone: Comment on above: PATIENT NOT FASTINGP ERFORMED BY: [facility] Dvlydr6046 [address] [facility] [place] [id number] Globulin Calculated mass conc (S) 3.0 g/dL Normal 2.0-4.5 [facility] Work Phone: Laboratory comment Mich (Report) SPRCS Normal [facility] Work Phone: Comment on above: Protein electrophore sis scan will follow via computer, mail, orcourier delivery. PATIENT NOT FASTINGP ERFORMED BY: [facility] Zptiso2010 [address] [facility]in [place] [id number] Protein.monoclonal Elph mass conc Not Observed Normal [facility] Work Phone: Comment on above: PATIENT NOT FASTINGP ERFORMED BY: GUS [facility] Jjlgxd7843 [address] [facility] [place] [id number] TSH ([id number])Ordered By: Syste m Network Solutions Architect on 08-07-2014 Thyrotropin Qn 1.930 {uIU/mL} Normal 0.450-4.50 0 [facility] Work Phone: Comment on above: PATIENT NOT FASTINGP ERFORMED BY: [facility] Uysexf4549 [address] [facility] [place] [id number] UPEP ([id number])Ordered By: Syst em Network Solutions Architect on 08-07-2014 Albumin/Protein.total Elph mass fraction (U) 46.8 % Normal [facility] Work Phone: Comment on above: PATIENT NOT FASTINGP ERFORMED BY: CB [facility] Igdyzn5170 [address]Dublin [place] [id number] Alpha 1 globulin/Protein.tota l Elph mass fraction (U) 4.3 % Normal [facility] Work Phone: Comment on above: PATIENT NOT FASTINGP ERFORMED BY: CB [facility] Nikxzp4245 [address] RoadDublin [place] [id number] Alpha 2 globulin/Protein.tota l Elph mass fraction (U) 14.9 % Normal [facility] Work Phone: Comment on above: PATIENT NOT FASTINGP ERFORMED BY: CB [facility] Nzetze0324 [address] RoadDublin [place] [id number] Beta globulin/Protein.tota l Elph mass fraction (U) 23.5 % Normal [facility] Work Phone: Comment on above: PATIENT NOT FASTINGP ERFORMED BY: CB [facility] Iunvte6093 [address]Dublin [place] [id number] Gamma globulin/Protein.tota l Elph mass fraction (U) 10.4 % Normal [facility] Work Phone: Comment on above: PATIENT NOT FASTINGP ERFORMED BY: CB [facility] Scvaoj5157 [address]Dublin [place] [id number] Protein mass conc (U) 5.6 mg/dL Normal 0.0-15.0 Com prehensive Internal Medicine Work Phone: Comment on above: PATIENT NOT FASTINGP ERFORMED BY: CB [facility] Fekkbo0990 [address]Dublin [place] [id number] Protein.monoclonal/Pr otein.total Elph mass fraction (U) Not Observed Normal [facility] Work Phone: Comment on above: PATIENT NOT FASTINGP ERFORMED BY: CB [facility] Qkquko1194 [address] RoadDublin [place] [id number] Clinical Lists Update: Prelo clutch rebuilder 07-20-2014 Hemoglobin A1c/Hemoglobin.total mass fraction (Bld) 6.2 % Normal 4.6 - 7.1 [facility] Work Phone: Cholesterol in HDL mass conc 37 mg/dL Low [facility] Work Phone: Cholesterol in LDL mass conc 145 mg/dL High [facility] Work Phone: Cholesterol in LDL/Cholesterol in HDL mass ratio 3.9 High [facility] Work Phone: Cholesterol mass conc 206 mg/dL High [facility] Work Phone: Lipoprotein.pre-beta mass conc 24 mg/dL Invalid Interpretation Code [facility] Work Phone: Triglyceride mass conc 118 mg/dL Invalid Interpretation Code [facility] Work Phone: METABOLIC PANEL, COMPREHENSI VE ([id number])Ordered By: Machine Lay Out Worker on 07-20-2014 Albumin mass conc 4.6 g/dL Normal 3.5-4.8 [facility] Work Phone: Comment on above: PATIENT NOT FASTINGP ERFORMED BY: GUS [facility] Ptvxxs0304 [facility] [id number] Information: [id number], [id number] Albumin/Globulin mass ratio 2.0 {ratio} Normal 1.1-2.5 [facility] Work Phone: Comment on above: PATIENT NOT FASTINGP ERFORMED BY: GUS [facility] Snxibw1393 [facility] [id number] Information: [id number], [id number] ALP [Catalytic activity/Vol] 67 U/L Normal 39-117 [facility] Work Phone: ALP enzyme act/vol 67 [iU]/L Normal 39-117 [facility] Internal Medicine Work Phone: Comment on above: PATIENT NOT FASTINGP ERFORMED BY: GUS [employer] Fjrbtb5482 [facility] [id number] Information: [id number], [id number] ALT [Catalytic activity/Vol] 22 U/L Normal 0-44 [facility] Work Phone: ALT enzyme act/vol 22 [iU]/L Normal 0-44 [facility] Internal Medicine Work Phone: Comment on above: PATIENT NOT FASTINGP ERFORMED BY: GUS [facility] Ewewpd0403 [facility] [id number] Information: [id number], [id number] AST [Catalytic activity/Vol] 27 U/L Normal 0-40 [facility] Work Phone: AST enzyme act/vol 27 [iU]/L Normal 0-40 Compre [facility] Internal Medicine Work Phone: Comment on above: PATIENT NOT FASTINGP ERFORMED BY: GUS [facility] Frjyca5034 [facility] [id number] Information: [id number], 053711 Bilirubin mass conc 0.8 mg/dL Normal 0.0-1.2 Compr ensive Internal Medicine Work Phone: Comment on above: PATIENT NOT FASTINGP ERFORMED BY: MarcelinaCo Erliid4230 [facility] [id number] Information: [id number], 096093 Calcium mass conc 10.6 mg/dL Abnormal 8.6-10.2 Compreh ensive Internal Medicine Work Phone: Comment on above: PATIENT NOT FASTINGP ERFORMED BY: [facility] Znxdjf9282 [facility] [id number] Information: [id number], [id number] Chloride molar conc 99 mmol/L Normal 97-108 Compr [facility] Internal Medicine Work Phone: Comment on above: PATIENT NOT FASTINGP ERFORMED BY: [facility] Qqxeoa0782 [facility] [id number] Information: [id number], [id number] CO2 molar conc 26 mmol/L Normal 18-29 Comprehens yamileth Internal Medicine Work Phone: Comment on above: PATIENT NOT FASTINGP ERFORMED BY: GUS [facility] Itqwjn8433 [facility] [id number] Information: [id number], [id number] Creatinine mass conc 0.78 mg/dL Normal 0.76-1.27 Comp [facility] Work Phone: Comment on above: PATIENT NOT FASTINGP ERFORMED BY: GUS [facility] Zwalxr[address] [facility] [id number] Information: [id number], 572509 GFR/1.73 sq M predicted among blacks CKD-EPI vol rate/area (S/P/Bld) 102 mL/min/1.73 Normal Comprehensiv e Internal Medicine Work Phone: Comment on above: PATIENT NOT FASTINGP ERFORMED BY: CB [facility] Lyoezy[address] [facility] [id number] Information: [id number], 292706 GFR/1.73 sq M predicted among non-blacks CKD-EPI vol rate/area (S/P/Bld) 88 mL/min/1.73 Normal [facility] Work Phone: Comment on above: PATIENT NOT FASTINGP ERFORMED BY: [facility] Jcizeq4485 [facility] [id number] Information: [id number], [id number] Globulin (S) [Mass/Vol] 2.3 g/dL Normal 1.5-4.5 [facility] Work Phone: Comment on above: PATIENT NOT FASTINGP ERFORMED BY: [facility] Coflni8583 [facility] [id number] Information: [id number], [id number] Globulin Calculated mass conc (S) 2.3 g/dL Normal 1.5-4.5 [facility] Work Phone: Glucose mass conc 108 mg/dL Abnormal 65-99 Compreh ensive Internal Medicine Work Phone: Comment on above: PATIENT NOT FASTINGP ERFORMED BY: CB [facility] Drxkzj5292 [facility] [id number] Information: [id number], 106299 Potassium molar conc 4.2 mmol/L Normal 3.5-5.2 Comp rehensive Internal Medicine Work Phone: Comment on above: PATIENT NOT FASTINGP ERFORMED BY: CB [facility] Defxyt7666 [facility] [id number] Information: [id number], 158954 Protein mass conc 6.9 g/dL Normal 6.0-8.5 Compreh ensive Internal Medicine Work Phone: Comment on above: PATIENT NOT FASTINGP ERFORMED BY: GUS [facility] Jieqti8693 [facility] [id number] Information: [id number], 349202 Sodium molar conc 143 mmol/L Normal 134-144 Compreh ensive Internal Medicine Work Phone: Comment on above: PATIENT NOT FASTINGP ERFORMED BY: GUS [facility] Exljep2862 [facility] [id number] Information: [id number], [id number] Urea nitrogen mass conc 19 mg/dL Normal 8-27 [facility] Work Phone: Comment on above: PATIENT NOT FASTINGP ERFORMED BY: [facility] Ycvhvu8523 [facility] [id number] Information: [id number], 813988 Urea nitrogen/Creatinine mass ratio 24 mg/mg Abnormal 10- [facility] Work Phone: Comment on above: PATIENT NOT FASTINGP ERFORMED BY: [facility] Apzfuc0874 [facility] [id number] Information: [id number], 900857 CBC WITH MANUAL DIFF (41321) Ordered By: Machine Lay Out Worker on 07-10-2014 Basophils (Bld) [#/Vol] 0.0 {x10E3/uL} Normal 0.0-0.2 [facility] Work Phone: Comment on above: PATIENT WAS FASTINGP ERFORMED BY: [facility] Gsnyjp6798 [facility] [id number] Information: [id number] Basophils (Bld) [#/Vol] 0.0 10*3/uL Normal 0.0-0.2 [facility] Work Phone: Basophils Auto #/vol (Bld) 0.0 {x10E3/uL} Normal 0.0-0.2 [facility] Work Phone: Basophils/100 WBC (Bld) 1 % Normal [facility] Work Phone: Comment on above: PATIENT WAS FASTINGP ERFORMED BY: [place] 0630770 [facility] [id number] Information: 312131,[id number] Basophils/100 WBC Auto (Bld) 1 % Normal [facility] Work Phone: Eosinophils (Bld) [#/Vol] 0.2 {x10E3/uL} Normal 0.0-0.4 [facility] Work Phone: Comment on above: PATIENT WAS FASTINGP ERFORMED BY: [address] [id number] Information: [id number] Eosinophils (Bld) [#/Vol] 0.2 10*3/uL Normal 0.0-0.4 [facility] Work Phone: Eosinophils Auto #/vol (Bld) 0.2 {x10E3/uL} Normal 0.0-0.4 [facility] Work Phone: Eosinophils/100 WBC (Bld) 4 % Normal [facility] Work Phone: Comment on above: PATIENT WAS FASTINGP ERFORMED BY: [address] [id number] Information: [id number] Eosinophils/100 WBC Auto (Bld) 4 % Normal [facility] Work Phone: Immature granulocytes #/vol (Bld) 0.0 {x10E3/uL} Normal 0.0-0.1 [facility] Work Phone: Comment on above: PATIENT WAS FASTINGP ERFORMED BY: [address] [id number] Information: [id number] Immature granulocytes (Bld) [#/Vol] 0.0 10*3/uL Normal 0.0-0.1 [facility] Work Phone: Immature granulocytes/100 WBC (Bld) 0 % Normal [facility] Work Phone: Comment on above: PATIENT WAS FASTINGP ERFORMED BY: [place] 0630770 [facility] [id number] Information: [id number] Lymphocytes (Bld) [#/Vol] 1.4 {x10E3/uL} Normal 0.7-3.1 [facility] Work Phone: Comment on above: PATIENT WAS FASTINGP ERFORMED BY: [address] [id number] Information: [id number] Lymphocytes (Bld) [#/Vol] 1.4 10*3/uL Normal 0.7-3.1 [facility] Work Phone: Lymphocytes Auto #/vol (Bld) 1.4 {x10E3/uL} Normal 0.7-3.1 [facility] Work Phone: Lymphocytes/100 WBC (Bld) 31 % Normal [facility] Work Phone: Comment on above: PATIENT WAS FASTINGP ERFORMED BY: [address] [id number] Information: [id number] Lymphocytes/100 WBC Auto (Bld) 31 % Normal [facility] Work Phone: Monocytes (Bld) [#/Vol] 0.6 {x10E3/uL} Normal 0.1-0.9 [facility] Work Phone: Comment on above: PATIENT WAS FASTINGP ERFORMED BY: [facility]6370 [facility] [id number] Information: [id number] Monocytes (Bld) [#/Vol] 0.6 10*3/uL Normal 0.1-0.9 [facility] Work Phone: Monocytes Auto #/vol (Bld) 0.6 {x10E3/uL} Normal 0.1-0.9 [facility] Work Phone: Monocytes/100 WBC (Bld) 13 % Normal [facility] Work Phone: Comment on above: PATIENT WAS FASTINGP ERFORMED BY: GUS [place] 5037870 [facility] [id number] Information: [id number] Monocytes/100 WBC Auto (Bld) 13 % Normal [facility] Work Phone: Neutrophils (Bld) [#/Vol] 2.2 {x10E3/uL} Normal 1.4-7.0 [facility] Work Phone: Comment on above: PATIENT WAS FASTINGP ERFORMED BY: GUS [facility] JoaquinWuuevv1699 [facility] [id number] Information: [id number] Neutrophils (Bld) [#/Vol] 2.2 10*3/uL Normal 1.4-7.0 [facility] Work Phone: Neutrophils Auto #/vol (Bld) 2.2 {x10E3/uL} Normal 1.4-7.0 [facility] Work Phone: Neutrophils/100 WBC (Bld) 51 % Normal [facility] Work Phone: Comment on above: PATIENT WAS FASTINGP ERFORMED BY: GUS [facility] CenterDayana JoaquinSbzzlx1959 [facility] [id number] Information: [id number] Neutrophils/100 WBC Auto (Bld) 51 % Normal [facility] Work Phone: Platelets (Bld) [#/Vol] 300 {x10E3/uL} Normal 150-379 [facility] Work Phone: Comment on above: PATIENT WAS FASTINGP ERFORMED BY: GUS [place] 5037870 [facility] [id number] Information: [id number] Platelets (Bld) [#/Vol] 300 10*3/uL Normal 150-379 [facility] Work Phone: Platelets Auto #/vol (Bld) 300 {x10E3/uL} Normal 150-379 [facility] Internal Medicine Work Phone: RBC (Bld) [#/Vol] 4.33 {x10E6/uL} Normal 4.14-5.80 [facility] Internal Medicine Work Phone: Comment on above: PATIENT WAS FASTINGP ERFORMED BY: GUS [facility]oteBay[facility] CenterCvnwyb1746 [facility] [id number] Information: [id number] RBC Auto #/vol (Bld) 4.33 {x10E6/uL} Normal 4.14-5.80 [facility] Internal Medicine Work Phone: WBC (Bld) [#/Vol] 4.3 {x10E3/uL} Normal 3.4-10.8 [facility] Internal Medicine Work Phone: Comment on above: PATIENT WAS FASTINGP ERFORMED BY: GUS WoteElizabeth Ville 1932870 [facility] [id number] Information: [id number] WBC Auto #/vol (Bld) 4.3 {x10E3/uL} Normal 3.4-10.8 [facility] Internal Medicine Work Phone: Clinical Lists Update: Prelo clutch rebuilder 07-10-2014 Erythrocyte distribution width Ratio (RBC) 13.1 % Normal 12.3-15.4 [facility] Work Phone: Comment on above: PATIENT WAS FASTINGP ERFORMED BY: [place] 0630770 [facility] [id number] Information: [id number] Hematocrit (HCT) 39.4 % Normal 37.5-51.0 [facility] Work Phone: Hematocrit Volume Fraction (Bld) 39.4 % Normal 37.5-51.0 [facility] Work Phone: Comment on above: PATIENT WAS FASTINGP ERFORMED BY: [place] 0630770 [facility] [id number] Information: [id number] Hemoglobin mass conc (Bld) 13.7 g/dL Normal 12.6-17.7 [facility] Work Phone: Comment on above: PATIENT WAS FASTINGP ERFORMED BY: [place] 0630770 [facility] [id number] Information: [id number] MCH 31.6 pg Normal 26.6-33.0 [facility] Work Phone: MCH Entitic mass (RBC) 31.6 pg Normal 26.6-33.0 [facility] [employer] Work Phone: Comment on above: PATIENT WAS FASTINGP ERFORMED BY: [place] 0630770 [facility] [id number] Information: [id number] MCHC 34.8 g/dL Normal 31.5-35.7 [facility] Work Phone: MCHC mass conc (RBC) 34.8 g/dL Normal 31.5-35.7 [facility] Work Phone: Comment on above: PATIENT WAS FASTINGP ERFORMED BY: [address] [id number] Information: [id number] MCV 91 fL Normal 79-97 [facility] Work Phone: MCV Entitic volume (RBC) 91 fL Normal 79-97 [facility] Work Phone: Comment on above: PATIENT WAS FASTINGP ERFORMED BY: [place] 0630770 [facility] [id number] Information: [id number] RBC #/vol (Bld) 4.33 10*6/uL Normal 4.14-5.80 [facility] [employer] Work Phone: RDW-CA 13.1 % Normal 12.3-15.4 [facility] Work Phone: WBC #/vol (Bld) 4.3 10*3/uL Normal 3.4-10.8 [facility] Work Phone: Erythrocytes (RBC) 4.33 10*6/uL Invalid Interpretation Code [facility] Work Phone: Platelets 300 10*3/mm3 Invalid Interpretation Code [facility] Work Phone: Platelets #/vol (Bld) 300 10*3/mm3 [facility] Work Phone: WBC (Leukocytes) 4.3 10*3/uL Invalid Interpretation Code [facility] Work Phone: LIPID PANEL ([id number])Ordered B y: Machine Lay Out Worker on 07-10-2014 Cholesterol in HDL mass conc 37 mg/dL Abnormal [facility] Work Phone: Comment on above: According to ATP-III Guidelines, HDL-C >59 mg/dL is considered anegative risk factor for CHD. PATIENT WAS FASTINGP ERFORMED BY: GUS [employer] [place] [id number] Cholesterol in LDL mass conc 145 mg/dL Abnormal 0-99 [facility] Work Phone: Comment on above: PATIENT WAS FASTINGP ERFORMED BY: [employer] [place] [id number] Cholesterol in LDL/Cholesterol in HDL mass ratio 3.9 {ratio_units} Abnormal 0.0-3.6 [facility] Work Phone: Comment on above: LDL/HDL Ratio Men Wo men 1/2 Avg.Risk 1.0 1.5 Avg.Risk 3.6 3.2 2X Avg.Risk 6.2 5.0 3X Avg.Risk 8.0 6.1 PATIENT WAS FASTINGP ERFORMED BY: [employer] [place] [id number] Cholesterol in VLDL mass conc 24 mg/dL Normal 5-40 [facility] Work Phone: Comment on above: PATIENT WAS FASTINGP ERFORMED BY: [employer] [place] [id number] Cholesterol mass conc 206 mg/dL Abnormal 100-199 [facility] prehensive Internal Medicine Work Phone: Comment on above: PATIENT WAS FASTINGP ERFORMED BY: GUS [facility] Makbgn6092 [facility] [place] [id number] Triglyceride mass conc 118 mg/dL Normal 0-149 [facility] Work Phone: Comment on above: PATIENT WAS FASTINGP ERFORMED BY: GUS [facility] Gfxcdp2648 [facility] [id number] METABOLIC PANEL, COMPREHENSI VE ([id number])Ordered By: Machine Lay Out Worker on 07-10-2014 Albumin mass conc 4.5 g/dL Normal 3.5-4.8 Compreh [facility] Work Phone: Comment on above: PATIENT WAS FASTINGP ERFORMED BY: GUS [facility] Auqbbr9028 [facility] [id number] Albumin/Globulin mass ratio 1.8 {ratio} Normal 1.1-2.5 [facility] Work Phone: Comment on above: PATIENT WAS FASTINGP ERFORMED BY: GUS [facility] Ohnmhl1966 [facility] [id number] ALP [Catalytic activity/Vol] 61 U/L Normal 39-117 [facility] Work Phone: ALP enzyme act/vol 61 [iU]/L Normal 39-117 [facility] Internal Medicine Work Phone: Comment on above: PATIENT WAS FASTINGP ERFORMED BY: GUS [facility] Vzmxbm2383 [facility] [id number] ALT [Catalytic activity/Vol] 23 U/L Normal 0-44 [facility] Work Phone: ALT enzyme act/vol 23 [iU]/L Normal 0-44 [facility] Internal Medicine Work Phone: Comment on above: PATIENT WAS FASTINGP ERFORMED BY: GUS [facility] Qhjubt[address] [facility] [id number] AST [Catalytic activity/Vol] 30 U/L Normal 0-40 [facility] Work Phone: AST enzyme act/vol 30 [iU]/L Normal 0-40 Compre [facility] Internal Medicine Work Phone: Comment on above: PATIENT WAS FASTINGP ERFORMED BY: GUS [facility] Lcxaac0841 [address]Dublin [place] [id number] Bilirubin mass conc 1.1 mg/dL Normal 0.0-1.2 Compr ensive Internal Medicine Work Phone: Comment on above: PATIENT WAS FASTINGP ERFORMED BY: CB [facility] Hspbha6235 [address]bl[address] [place] [id number] Calcium mass conc 10.3 mg/dL Abnormal 8.6-10.2 Compreh [facility] Work Phone: Comment on above: PATIENT WAS FASTINGP ERFORMED BY: CB [facility] Jvxcqd9225 [address] RoadAtrium Health Cabarrusin [place] [id number] Chloride molar conc 98 mmol/L Normal 97-108 Compr [facility] Internal Medicine Work Phone: Comment on above: PATIENT WAS FASTINGP ERFORMED BY: CB [facility] Byhboc[address] [facility] [id number] CO2 molar conc 27 mmol/L Normal 18-29 Comprehens yamileth Internal Medicine Work Phone: Comment on above: PATIENT WAS FASTINGP ERFORMED BY: GUS LabCosinai JoaquinEjoapl5837 [address] [facility] [place] [id number] Creatinine mass conc 0.91 mg/dL Normal 0.76-1.27 Comp [facility] Internal Medicine Work Phone: Comment on above: PATIENT WAS FASTINGP ERFORMED BY: CB [facility] Sbueyi9519 [address] RoadAtrium Health Cabarrusin [place] [id number] GFR/1.73 sq M predicted among blacks CKD-EPI vol rate/area (S/P/Bld) 95 mL/min/1.73 Normal Comprehensiv e Internal Medicine Work Phone: Comment on above: PATIENT WAS FASTINGP ERFORMED BY: CB [facility] Mrpxge0758 [address]blin [place] [id number] GFR/1.73 sq M predicted among non-blacks CKD-EPI vol rate/area (S/P/Bld) 82 mL/min/1.73 Normal [facility] Work Phone: Comment on above: PATIENT WAS FASTINGP ERFORMED BY: CB [facility] Jfvwfq7916 [address] RoadDublin [place] [id number] Globulin (S) [Mass/Vol] 2.5 g/dL Normal 1.5-4.5 [facility] Work Phone: Comment on above: PATIENT WAS FASTINGP ERFORMED BY: CB [facility] Ysoqhv7962 [address]Dublin [place] [id number] Globulin Calculated mass conc (S) 2.5 g/dL Normal 1.5-4.5 [facility] Work Phone: Glucose mass conc 121 mg/dL Abnormal 65-99 Compreh ensive Internal Medicine Work Phone: Comment on above: PATIENT WAS FASTINGP ERFORMED BY: GUS [facility] Qispgl9994 [address] RoadAtrium Health Cabarrusin [place] [id number] Potassium molar conc 4.0 mmol/L Normal 3.5-5.2 Comp rehensive Internal Medicine Work Phone: Comment on above: PATIENT WAS FASTINGP ERFORMED BY: CB [facility] Vqgilb0552 [address] RoadDublin [place] [id number] Protein mass conc 7.0 g/dL Normal 6.0-8.5 Compreh ensive Internal Medicine Work Phone: Comment on above: PATIENT WAS FASTINGP ERFORMED BY: CB [facility] Nimpqu6616 [address] RoadDuin [place] [id number] Sodium molar conc 139 mmol/L Normal 134-144 Compreh ensive Internal Medicine Work Phone: Comment on above: PATIENT WAS FASTINGP ERFORMED BY: CB [facility] Janfep1399 [address] RoadDublin [place] [id number] Urea nitrogen mass conc 15 mg/dL Normal 8-27 [facility] Work Phone: Comment on above: PATIENT WAS FASTINGP ERFORMED BY: CB [facility] Pxeehk7501 [address] RoadDublin [place] [id number] Urea nitrogen/Creatinine mass ratio 16 mg/mg Normal 10-22 [facility] Work Phone: Comment on above: PATIENT WAS FASTINGP ERFORMED BY: Attolight6370 [employer] GroupECU Health [id number] PSA (PROSTATE SPECIFIC ANTIG EN) (V76.44)Ordered By: Machine Lay Out Worker on 07-10-2014 Prostate specific Ag mass conc 4.2 ng/mL Abnormal 0.0-4.0 [facility] Work Phone: Comment on above: Uversity ECLIA methodol ogy. .According to the [place] [employer], Serum PSA shoulddecrease and remain at undetectable levels after radicalprostatectomy. The AUA defines biochemical recurrence as an initialPSA value 0.2 ng/mL or greater followed by a subsequent confirmatoryPSA value 0.2 ng/mL or greater.Values obtained with different assay methods or kits cannot be usedinterchangeably. Results cannot be interpreted as absolute evidenceof the presence or absence of malignant disease. PATIENT WAS FASTINGP ERFORMED BY: Attolight6370 [facility] GroupECU Health [id number] TSH ([id number])Ordered By: Syste m Network Solutions Architect on 07-10-2014 Thyrotropin Qn 1.950 {uIU/mL} Normal 0.450-4.50 0 [facility] Work Phone: Comment on above: PATIENT WAS FASTINGP ERFORMED BY: Attolight6370 [employer] [facility] GroupECU Health [id number] HgA1C , Office ([id number])Ordere d By: Rosie Gil on 12-26-2013 Hemoglobin A1c/Hemoglobin.total mass fraction (Bld) 6.0 % Normal 4.6 - 7.1 Comprehensiv e Internal Medicine Work Phone: CBC WITH MANUAL DIFF ([id number]) Ordered By: Machine Lay Out Worker on 12-11-2013 Basophils (Bld) [#/Vol] 0.0 {x10E3/uL} Normal 0.0-0.2 [facility] Work Phone: Comment on above: PATIENT WAS FASTINGP ERFORMED BY: Attolight6370 [facility]At[facility] [id number] Information: [id number] Basophils (Bld) [#/Vol] 0.0 10*3/uL Normal 0.0-0.2 [facility] Work Phone: Basophils Auto #/vol (Bld) 0.0 {x10E3/uL} Normal 0.0-0.2 [facility] Work Phone: Basophils/100 WBC (Bld) 1 % Normal 0-3 [facility] Work Phone: Comment on above: PATIENT WAS FASTINGP ERFORMED BY: GUS [employer]70 [facility] [id number] Information: [id number] Basophils/100 WBC Auto (Bld) 1 % Normal 0-3 [facility] Work Phone: Eosinophils (Bld) [#/Vol] 0.2 {x10E3/uL} Normal 0.0-0.4 [facility] Work Phone: Comment on above: PATIENT WAS FASTINGP ERFORMED BY: GUS [employer]70 [facility] [id number] Information: [id number] Eosinophils (Bld) [#/Vol] 0.2 10*3/uL Normal 0.0-0.4 [facility] Work Phone: Eosinophils Auto #/vol (Bld) 0.2 {x10E3/uL} Normal 0.0-0.4 [facility] Work Phone: Eosinophils/100 WBC (Bld) 5 % Normal 0-5 [facility] Work Phone: Comment on above: PATIENT WAS FASTINGP ERFORMED BY: WoteBayonne Medical CenterNwdbdn3980 [facility] [id number] Information: [id number] Eosinophils/100 WBC Auto (Bld) 5 % Normal 0-5 [facility] Work Phone: Erythrocyte distribution width (RBC) [Ratio] 14.5 % Normal 12.3-15.4 [facility] Work Phone: Comment on above: PATIENT WAS FASTINGP ERFORMED BY: [facility]6370 [facility] [id number] Information: [id number] Erythrocyte distribution width Auto Ratio (RBC) 14.5 % Normal 12.3-15.4 [facility] Work Phone: Hematocrit (Bld) [Volume fraction] 37.4 % Abnormal 37.5-51.0 [facility] Work Phone: Comment on above: PATIENT WAS FASTINGP ERFORMED BY: [address] [id number] Information: [id number] Hematocrit Auto Volume Fraction (Bld) 37.4 % Abnormal 37.5-51.0 [facility] Internal Medicine Work Phone: Hemoglobin mass conc (Bld) 12.8 g/dL Normal 12.6-17.7 [facility] Work Phone: Comment on above: PATIENT WAS FASTINGP ERFORMED BY: [place] 0630770 [facility] [id number] Information: [id number] Immature granulocytes #/vol (Bld) 0.0 {x10E3/uL} Normal 0.0-0.1 [facility] Work Phone: Comment on above: PATIENT WAS FASTINGP ERFORMED BY: [place] 0630770 [facility] [id number] Information: [id number] Immature granulocytes (Bld) [#/Vol] 0.0 10*3/uL Normal 0.0-0.1 [facility] Work Phone: Immature granulocytes/100 WBC (Bld) 0 % Normal 0-2 [facility] Work Phone: Comment on above: PATIENT WAS FASTINGP ERFORMED BY: [place] [id number] [facility] [id number] Information: [id number] Lymphocytes (Bld) [#/Vol] 1.5 {x10E3/uL} Normal 0.7-3.1 [facility] Work Phone: Comment on above: PATIENT WAS FASTINGP ERFORMED BY: GUS [place] [id number] [facility] [id number] Information: [id number] Lymphocytes (Bld) [#/Vol] 1.5 10*3/uL Normal 0.7-3.1 [facility] Work Phone: Lymphocytes Auto #/vol (Bld) 1.5 {x10E3/uL} Normal 0.7-3.1 [facility] Work Phone: Lymphocytes/100 WBC (Bld) 38 % Normal [facility] Work Phone: Comment on above: PATIENT WAS FASTINGP ERFORMED BY: GUS [address] [id number] Information: [id number] Lymphocytes/100 WBC Auto (Bld) 38 % Normal - [facility] Work Phone: MCH (RBC) [Entitic mass] 32.2 pg Normal 26.6-33.0 [facility] Work Phone: Comment on above: PATIENT WAS FASTINGP ERFORMED BY: GUS [place] [id number] [facility] [id number] Information: [id number] MCH Auto Entitic mass (RBC) 32.2 pg Normal 26.6-33.0 [facility] Work Phone: MCHC (RBC) [Mass/Vol] 34.2 g/dL Normal 31.5-35.7 [facility] prehensive Internal Medicine Work Phone: Comment on above: PATIENT WAS FASTINGP ERFORMED BY: [address] [id number] Information: [id number] MCHC Auto mass conc (RBC) 34.2 g/dL Normal 31.5-35.7 [facility] Work Phone: MCV (RBC) [Entitic vol] 94 fL Normal 79-97 [facility] Work Phone: Comment on above: PATIENT WAS FASTINGP ERFORMED BY: GUS [place] [id number] [facility] [id number] Information: [id number] MCV Auto Entitic volume (RBC) 94 fL Normal 79-97 [facility] Work Phone: Monocytes (Bld) [#/Vol] 0.5 {x10E3/uL} Normal 0.1-0.9 [facility] Work Phone: Comment on above: PATIENT WAS FASTINGP ERFORMED BY: GUS [address] [id number] Information: [id number] Monocytes (Bld) [#/Vol] 0.5 10*3/uL Normal 0.1-0.9 [facility] Work Phone: Monocytes Auto #/vol (Bld) 0.5 {x10E3/uL} Normal 0.1-0.9 [facility] Work Phone: Monocytes/100 WBC (Bld) 13 % Abnormal -12 [facility] Work Phone: Comment on above: PATIENT WAS FASTINGP ERFORMED BY: GUS [place] [id number] [facility] [id number] Information: [id number] Monocytes/100 WBC Auto (Bld) 13 % Abnormal 4-12 [facility] Work Phone: Neutrophils (Bld) [#/Vol] 1.6 {x10E3/uL} Normal 1.4-7.0 [facility] Work Phone: Comment on above: PATIENT WAS FASTINGP ERFORMED BY: [place] 0630770 [facility] [id number] Information: [id number] Neutrophils (Bld) [#/Vol] 1.6 10*3/uL Normal 1.4-7.0 [facility] Work Phone: Neutrophils Auto #/vol (Bld) 1.6 {x10E3/uL} Normal 1.4-7.0 [facility] Work Phone: Neutrophils/100 WBC (Bld) 43 % Normal 40-74 [facility] Work Phone: Comment on above: PATIENT WAS FASTINGP ERFORMED BY: GUS [facility]6370 [facility] [id number] Information: [id number] Neutrophils/100 WBC Auto (Bld) 43 % Normal 40-74 [facility] Work Phone: Platelets (Bld) [#/Vol] 222 {x10E3/uL} Normal 155-379 [facility] Work Phone: Comment on above: PATIENT WAS FASTINGP ERFORMED BY: GUS [facility] Blmutg7711 [facility] [id number] Information: [id number] Platelets (Bld) [#/Vol] 222 10*3/uL Normal 155-379 [facility] Work Phone: Platelets Auto #/vol (Bld) 222 {x10E3/uL} Normal 155-379 [facility] Work Phone: RBC (Bld) [#/Vol] 3.97 {x10E6/uL} Abnormal 4.14-5.80 [facility] Internal Medicine Work Phone: Comment on above: PATIENT WAS FASTINGP ERFORMED BY: [facility]6370 [facility] [id number] Information: [id number] RBC (Bld) [#/Vol] 3.97 10*6/uL Abnormal 4.14-5.80 [facility] Internal Medicine Work Phone: RBC Auto #/vol (Bld) 3.97 {x10E6/uL} Abnormal 4.14-5.80 [facility] Work Phone: WBC (Bld) [#/Vol] 3.9 {x10E3/uL} Normal 3.4-10.8 Com prehensive Internal Medicine Work Phone: Comment on above: PATIENT WAS FASTINGP ERFORMED BY: GUS Joaquinlin6370 [facility] [id number] Information: [id number] WBC (Bld) [#/Vol] 3.9 10*3/uL Normal 3.4-10.8 Compre [facility] Internal Medicine Work Phone: WBC Auto #/vol (Bld) 3.9 {x10E3/uL} Normal 3.4-10.8 [facility] Work Phone: LIPID PANEL ([id number])Ordered B y: Machine Lay Out Worker on 12-11-2013 Cholesterol in HDL mass conc 30 mg/dL Abnormal [facility] Work Phone: Comment on above: According to ATP-III Guidelines, HDL-C >59 mg/dL is considered anegative risk factor for CHD. PATIENT WAS FASTINGP ERFORMED BY: GUS Joaquinlin6370 [facility] [id number] Cholesterol in LDL mass conc 84 mg/dL Normal 0-99 [facility] Work Phone: Comment on above: PATIENT WAS FASTINGP ERFORMED BY: GUS Joaquinlin6370 [facility] [id number] Cholesterol in LDL/Cholesterol in HDL mass ratio 2.8 {ratio_units} Normal 0.0-3.6 [facility] Work Phone: Comment on above: PATIENT WAS FASTINGP ERFORMED BY: GUS Joaquinlin6370 [facility] [id number] Cholesterol in VLDL mass conc 23 mg/dL Normal 5-40 [facility] Work Phone: Comment on above: PATIENT WAS FASTINGP ERFORMED BY: GUS Joaquinlin6370 [facility] [id number] Cholesterol mass conc 137 mg/dL Normal 100-199 [facility] prehensive Internal Medicine Work Phone: Comment on above: PATIENT WAS FASTINGP ERFORMED BY: GUS Joaquinlin6370 [facility] [id number] Triglyceride mass conc 116 mg/dL Normal 0-149 [facility] Work Phone: Comment on above: PATIENT WAS FASTINGP ERFORMED BY: GUS MarcelinaDayana JoaquinJjgkrn3064 [facility] [id number] METABOLIC PANEL, COMPREHENSI VE ([id number])Ordered By: Machine Lay Out Worker on 12-11-2013 Albumin mass conc 4.2 g/dL Normal 3.5-4.8 Compreh ensive Internal Medicine Work Phone: Comment on above: PATIENT WAS FASTINGP ERFORMED BY: GUS Joaquinlin6370 [facility] [id number] Albumin/Globulin mass ratio 1.6 {ratio} Normal 1.1-2.5 [facility] Work Phone: Comment on above: PATIENT WAS FASTINGP ERFORMED BY: GUS Joaquinlin6370 [facility] [id number] ALP [Catalytic activity/Vol] 75 U/L Normal 39-117 [facility] Work Phone: ALP enzyme act/vol 75 [iU]/L Normal 39-117 [facility] Internal Medicine Work Phone: Comment on above: PATIENT WAS FASTINGP ERFORMED BY: GUS Joaquinlin6370 [facility] [id number] ALT [Catalytic activity/Vol] 23 U/L Normal 0-44 [facility] Work Phone: ALT enzyme act/vol 23 [iU]/L Normal 0-44 [facility] Internal Medicine Work Phone: Comment on above: PATIENT WAS FASTINGP ERFORMED BY: GUS LabSaint [facility] Mpmldf5812 [facility] [id number] AST [Catalytic activity/Vol] 25 U/L Normal 0-40 [facility] Work Phone: AST enzyme act/vol 25 [iU]/L Normal 0-40 [facility] Internal Medicine Work Phone: Comment on above: PATIENT WAS FASTINGP ERFORMED BY: GUS [facility] Exxrfy4139 [facility] CenterDublin [place] [id number] Bilirubin mass conc 1.0 mg/dL Normal 0.0-1.2 Compr ehensive Internal Medicine Work Phone: Comment on above: PATIENT WAS FASTINGP ERFORMED BY: GUS [facility] Droaxv0790 [address]bl[address] [place] [id number] Calcium mass conc 9.6 mg/dL Normal 8.6-10.2 Compreh ensive Internal Medicine Work Phone: Comment on above: PATIENT WAS FASTINGP ERFORMED BY: GUS [facility] Dvbcak[address] [facility] [id number] Chloride molar conc 99 mmol/L Normal 97-108 Compr ehensive Internal Medicine Work Phone: Comment on above: PATIENT WAS FASTINGP ERFORMED BY: GUS [facility] Kbilzx[address] [facility] [id number] CO2 molar conc 26 mmol/L Normal 19-28 Comprehens yamileth Internal Medicine Work Phone: Comment on above: PATIENT WAS FASTINGP ERFORMED BY: GUS [facility] Sw[address]fq[address] [facility] [id number] Creatinine mass conc 0.90 mg/dL Normal 0.76-1.27 Comp rehensive Internal Medicine Work Phone: Comment on above: PATIENT WAS FASTINGP ERFORMED BY: GUS [facility] Qwpxqi[address] [facility] [id number] GFR/1.73 sq M predicted among blacks CKD-EPI vol rate/area (S/P/Bld) 97 mL/min/1.73 Normal Comprehensiv e Internal Medicine Work Phone: Comment on above: PATIENT WAS FASTINGP ERFORMED BY: GUS [facility] Vtguqx7469 [address] RoadAtrium Health [place]usin [place] [id number] GFR/1.73 sq M predicted among non-blacks CKD-EPI vol rate/area (S/P/Bld) 84 mL/min/1.73 Normal [facility] Work Phone: Comment on above: PATIENT WAS FASTINGP ERFORMED BY: GUS [facility] Erehqj1702 [address] RoadDublin [place] [id number] Globulin (S) [Mass/Vol] 2.7 g/dL Normal 1.5-4.5 [facility] Work Phone: Comment on above: PATIENT WAS FASTINGP ERFORMED BY: GUS Luci Pfwote8453 [facility] [id number] Globulin Calculated mass conc (S) 2.7 g/dL Normal 1.5-4.5 [facility] Work Phone: Glucose mass conc 104 mg/dL Abnormal 65-99 Compreh ensive Internal Medicine Work Phone: Comment on above: PATIENT WAS FASTINGP ERFORMED BY: GUS MarcelinaSaint John'S Health System Qxgijw8490 [facility] [id number] Potassium molar conc 4.3 mmol/L Normal 3.5-5.2 Comp rehensive Internal Medicine Work Phone: Comment on above: PATIENT WAS FASTINGP ERFORMED BY: GUS [facility] Jldeeo9565 [facility] [id number] Protein mass conc 6.9 g/dL Normal 6.0-8.5 Compreh ensive Internal Medicine Work Phone: Comment on above: PATIENT WAS FASTINGP ERFORMED BY: GUS Luci Hpejif3672 [facility] [id number] Sodium molar conc 138 mmol/L Normal 134-144 Compreh ensive Internal Medicine Work Phone: Comment on above: PATIENT WAS FASTINGP ERFORMED BY: GUS [facility]Har[facility]6370 [facility] [id number] Urea nitrogen mass conc 23 mg/dL Normal 8-27 [facility] Work Phone: Comment on above: PATIENT WAS FASTINGP ERFORMED BY: GUS LabSaint [facility] Ybsgxj1405 [facility] [id number] Urea nitrogen/Creatinine mass ratio 26 mg/mg Abnormal 10-22 [facility] Work Phone: Comment on above: PATIENT WAS FASTINGP ERFORMED BY: GUS [facility]Har[facility]6370 [facility] [id number] Microscopic ExaminationOrder ed By: Machine Lay Out Worker on 12-11-2013 Bacteria LM.HPF #/area (Urine sed) Few Normal [facility] Work Phone: Casts LM Nom (Urine sed) Hyaline casts Normal [facility] Work Phone: Casts LM Ql (Urine sed) Present Abnormal [facility] Work Phone: Epithelial cells LM.HPF #/area (Urine sed) None seen Normal 0 - 10 [facility] Work Phone: Mucus LM Ql (Urine sed) Present Normal [facility] Work Phone: RBC LM.HPF #/area (Urine sed) 0-3 Normal 0 - 3 [facility] Work Phone: WBC LM.HPF #/area (Urine sed) 0-5 Normal 0 - 5 [facility] Work Phone: PSA (PROSTATE SPECIFIC ANTIG EN) (V76.44)Ordered By: Machine Lay Out Worker on 12-11-2013 Prostate specific Ag mass conc 3.9 ng/mL Normal 0.0-4.0 [facility] Work Phone: Comment on above: Moiz ECLIA methodol ogy. .According to the [place] [employer], Serum PSA shoulddecrease and remain at undetectable levels after radicalprostatectomy. The AUA defines biochemical recurrence as an initialPSA value 0.2 ng/mL or greater followed by a subsequent confirmatoryPSA value 0.2 ng/mL or greater.Values obtained with different assay methods or kits cannot be usedinterchangeably. Results cannot be interpreted as absolute evidenceof the presence or absence of malignant disease. PATIENT WAS FASTINGP ERFORMED BY: Ning [facility] Eydfyd9394 [employer] Media Groupblin [place] [id number] URINALYSIS, W/ MICRO ([id number]) Ordered By: Machine Lay Out Worker on 12-11-2013 Appearance Nom (U) Clear Normal Compre hensive Internal Medicine Work Phone: Comment on above: PATIENT WAS FASTINGP ERFORMED BY: Ning [facility] Kdfkcy4268 [address] NeighborMDDublin [place] [id number] Bilirubin Ql (U) Negative Normal Comprehe nsive Internal Medicine Work Phone: Comment on above: PATIENT WAS FASTINGP ERFORMED BY: GUS [facility] Xmbxvs2441 [address] RoadDublin [place] [id number] Bilirubin Ql (U) Negative Normal Comprehe nsive Internal Medicine Work Phone: Color Nom (U) Yellow Normal Comprehensi ve Internal Medicine Work Phone: Comment on above: PATIENT WAS FASTINGP ERFORMED BY: GUS LabSaint [facility] Zcglld2254 [address] RoadAtrium Health Cabarrusin [place] [id number] Glucose Ql (U) Negative Normal Comprehens yamileth Internal Medicine Work Phone: Comment on above: PATIENT WAS FASTINGP ERFORMED BY: GUS LabDayana JaoquinHckwuo5184 [address] RoadAtrium Health Cabarrusin [place] [id number] Glucose Ql (U) Negative Normal Comprehens yamileth Internal Medicine Work Phone: Hemoglobin Ql (U) Negative Normal Compreh ensive Internal Medicine Work Phone: Comment on above: PATIENT WAS FASTINGP ERFORMED BY: GUS LabSaint [facility] Yjryvf9632 [address] RoadAtrium Health [facility] [id number] Hemoglobin Ql (U) Negative Normal Compreh ensive Internal Medicine Work Phone: Hemoglobin Test strip Ql (U) Negative Normal [facility] Work Phone: Ketones Ql (U) Negative Normal Comprehens yamileth Internal Medicine Work Phone: Comment on above: PATIENT WAS FASTINGP ERFORMED BY: GUS LabSaint [facility] Yktcvw8476 [address] RoadAtrium Health Cabarrusin [place] [id number] Ketones Ql (U) Negative Normal Comprehens yamileth Internal Medicine Work Phone: Leukocyte esterase Test strip Ql (U) Negative Normal [facility] Work Phone: Comment on above: PATIENT WAS FASTINGP ERFORMED BY: GUS [facility] Zgznsh4887 [address] RoadDublin [place] [id number] Leukocyte esterase Test strip Ql (U) Negative Normal [facility] Work Phone: Microscopic observation LM Nom (Urine sed) MICRON Normal [facility] Work Phone: Comment on above: Microscopic follows if indicated. PATIENT WAS FASTINGP ERFORMED BY: GUS Mo6370 [address] RoadDublin [place] [id number] Microscopic observation LM Nom (Urine sed) See below: Normal [facility] Work Phone: Comment on above: PATIENT WAS FASTINGP ERFORMED BY: GUS Mo6370 [address] RoadDublin [place] [id number] Nitrite Ql (U) Negative Normal Comprehens yamileth Internal Medicine Work Phone: Comment on above: PATIENT WAS FASTINGP ERFORMED BY: GUS Mo6370 [address] NeighborMDAtrium Health [place]usin [place] [id number] Nitrite Ql (U) Negative Normal Comprehens yamileth Internal Medicine Work Phone: Nitrite Test strip Ql (U) Negative Normal [facility] Work Phone: pH (U) 7.0 [pH] Normal 5.0-7.5 [facility] Work Phone: Comment on above: PATIENT WAS FASTINGP ERFORMED BY: GUS Mo6370 [address] NeighborMDAtrium Health [place] [id number] pH Test strip (U) 7.0 [pH] Normal 5.0-7.5 Compreh ensive Internal Medicine Work Phone: Protein Ql (U) Negative Normal Comprehens yamileth Internal Medicine Work Phone: Comment on above: PATIENT WAS FASTINGP ERFORMED BY: GUS Joaquinlin6370 [address] RoadDuin [place] [id number] Protein Ql (U) Negative Normal Comprehens yamileth Internal Medicine Work Phone: Protein Test strip Ql (U) Negative Normal [facility] Work Phone: Specific gravity Relative Density (U) 1.021 1 Normal 1.005-1.03 0 [facility] Work Phone: Comment on above: PATIENT WAS FASTINGP ERFORMED BY: GUS LabCosinai JoaquinEfjssx4576 [address] RoadDublin [place] [id number] Urobilinogen (U) [Mass/Vol] 1.0 mg/dL Normal 0.0-1.9 [facility] Work Phone: Urobilinogen Test strip mass conc (U) 1.0 mg/dL Normal 0.0-1.9 Comprehensiv e Internal Medicine Work Phone: Comment on above: PATIENT WAS FASTINGP ERFORMED BY: GUS Wote Fywhdt3373 [employer] GroupECU Health [id number] Replaced Document: Paty Nicholson 11-11-2013 Pulse (Heart Rate) 461 ms Invalid Interpretation Code [facility] Work Phone: Office Visit: Aric 08-04-19 14 Left ventricular Ejection fraction 50 % Invalid Interpretation Code [facility] Work Phone: CBC WITH MANUAL DIFF ([id number]) Ordered By: Machine Lay Out Worker on 06-30-2013 Basophils (Bld) [#/Vol] 0.0 {x10E3/uL} Normal 0.0-0.2 [facility] Work Phone: Comment on above: PATIENT WAS FASTINGP ERFORMED BY: GUS Wote Yoqhgf4294 [employer] GroupECU Health [id number] Information: [id number] Basophils (Bld) [#/Vol] 0.0 10*3/uL Normal 0.0-0.2 [facility] Work Phone: Basophils Auto #/vol (Bld) 0.0 {x10E3/uL} Normal 0.0-0.2 [facility] Work Phone: Basophils/100 WBC (Bld) 1 % Normal 0-3 [facility] Work Phone: Comment on above: PATIENT WAS FASTINGP ERFORMED BY: Wote Tlckec5730 [address] NeighborMDAtrium Health [facility] [id number] Information: [id number] Basophils/100 WBC Auto (Bld) 1 % Normal 0-3 [facility] Work Phone: Eosinophils (Bld) [#/Vol] 0.2 {x10E3/uL} Normal 0.0-0.4 [facility] Work Phone: Comment on above: PATIENT WAS FASTINGP ERFORMED BY: [place] 0630770 [facility] [id number] Information: [id number] Eosinophils (Bld) [#/Vol] 0.2 10*3/uL Normal 0.0-0.4 [facility] Work Phone: Eosinophils Auto #/vol (Bld) 0.2 {x10E3/uL} Normal 0.0-0.4 [facility] Work Phone: Eosinophils/100 WBC (Bld) 4 % Normal 0-5 [facility] Work Phone: Comment on above: PATIENT WAS FASTINGP ERFORMED BY: [place] 0630770 [facility] [id number] Information: [id number] Eosinophils/100 WBC Auto (Bld) 4 % Normal 0-5 [facility] Work Phone: Erythrocyte distribution width (RBC) [Ratio] 14.1 % Normal 12.3-15.4 [facility] Work Phone: Comment on above: PATIENT WAS FASTINGP ERFORMED BY: [facility]6370 [facility] [id number] Information: [id number] Erythrocyte distribution width Auto Ratio (RBC) 14.1 % Normal 12.3-15.4 [facility] Work Phone: Hematocrit (Bld) [Volume fraction] 40.1 % Normal 37.5-51.0 [facility] Work Phone: Comment on above: PATIENT WAS FASTINGP ERFORMED BY: [place] 0630770 [facility] [id number] Information: [id number] Hematocrit Auto Volume Fraction (Bld) 40.1 % Normal 37.5-51.0 Comprehens yamileth Internal Medicine Work Phone: Hemoglobin mass conc (Bld) 13.4 g/dL Normal 12.6-17.7 [facility] Work Phone: Comment on above: PATIENT WAS FASTINGP ERFORMED BY: [facility] Vckvqi7454 [facility] [id number] Information: [id number] Immature granulocytes #/vol (Bld) 0.0 {x10E3/uL} Normal 0.0-0.1 [facility] Work Phone: Comment on above: PATIENT WAS FASTINGP ERFORMED BY: GUS [address] [id number] Information: [id number] Immature granulocytes (Bld) [#/Vol] 0.0 10*3/uL Normal 0.0-0.1 [facility] Work Phone: Immature granulocytes/100 WBC (Bld) 0 % Normal 0-2 [facility] Work Phone: Comment on above: PATIENT WAS FASTINGP ERFORMED BY: GUS [facility]6370 [facility] [id number] Information: [id number] Lymphocytes (Bld) [#/Vol] 1.4 {x10E3/uL} Normal 0.7-3.1 [facility] Work Phone: Comment on above: PATIENT WAS FASTINGP ERFORMED BY: [place] 0630770 [facility] [id number] Information: [id number] Lymphocytes (Bld) [#/Vol] 1.4 10*3/uL Normal 0.7-3.1 [facility] Work Phone: Lymphocytes Auto #/vol (Bld) 1.4 {x10E3/uL} Normal 0.7-3.1 [facility] Work Phone: Lymphocytes/100 WBC (Bld) 33 % Normal 14-46 [facility] Work Phone: Comment on above: PATIENT WAS FASTINGP ERFORMED BY: [place] 0630770 [facility] [id number] Information: [id number] Lymphocytes/100 WBC Auto (Bld) 33 % Normal 14-46 [facility] Work Phone: MCH (RBC) [Entitic mass] 30.9 pg Normal 26.6-33.0 [facility] Internal Medicine Work Phone: Comment on above: PATIENT WAS FASTINGP ERFORMED BY: [address] [id number] Information: [id number] MCH Auto Entitic mass (RBC) 30.9 pg Normal 26.6-33.0 [facility] Internal Medicine Work Phone: MCHC (RBC) [Mass/Vol] 33.4 g/dL Normal 31.5-35.7 [facility] prehensive Internal Medicine Work Phone: Comment on above: PATIENT WAS FASTINGP ERFORMED BY: [address] [id number] Information: [id number] MCHC Auto mass conc (RBC) 33.4 g/dL Normal 31.5-35.7 [facility] Internal Medicine Work Phone: MCV (RBC) [Entitic vol] 93 fL Normal 79-97 [facility] Work Phone: Comment on above: PATIENT WAS FASTINGP ERFORMED BY: [place] 0630770 [facility] [id number] Information: [id number] MCV Auto Entitic volume (RBC) 93 fL Normal 79-97 [facility] Internal Medicine Work Phone: Monocytes (Bld) [#/Vol] 0.5 {x10E3/uL} Normal 0.1-0.9 [facility] Internal Medicine Work Phone: Comment on above: PATIENT WAS FASTINGP ERFORMED BY: [address] [id number] Information: [id number] Monocytes (Bld) [#/Vol] 0.5 10*3/uL Normal 0.1-0.9 [facility] Work Phone: Monocytes Auto #/vol (Bld) 0.5 {x10E3/uL} Normal 0.1-0.9 [facility] Work Phone: Monocytes/100 WBC (Bld) 11 % Normal 4-12 [facility] Work Phone: Comment on above: PATIENT WAS FASTINGP ERFORMED BY: GUS FirstJobDayana JoaquinKkqkvn3628 Grijalva [facility]MDAt[facility] [id number] Information: [id number] Monocytes/100 WBC Auto (Bld) 11 % Normal 4-12 [facility] Work Phone: Neutrophils (Bld) [#/Vol] 2.3 {x10E3/uL} Normal 1.4-7.0 [facility] Work Phone: Comment on above: PATIENT WAS FASTINGP ERFORMED BY: GUS Wotesinai JoaquinIlonkq6960 Grijalva NeighborMDAtrium Health [facility] [id number] Information: [id number] Neutrophils (Bld) [#/Vol] 2.3 10*3/uL Normal 1.4-7.0 [facility] Work Phone: Neutrophils Auto #/vol (Bld) 2.3 {x10E3/uL} Normal 1.4-7.0 [facility] Work Phone: Neutrophils/100 WBC (Bld) 51 % Normal 40-74 [facility] Work Phone: Comment on above: PATIENT WAS FASTINGP ERFORMED BY: GUS Wotesinai Xcqses7008 [facility] [id number] Information: [id number] Neutrophils/100 WBC Auto (Bld) 51 % Normal 40-74 [facility] Work Phone: Platelets (Bld) [#/Vol] 222 {x10E3/uL} Normal 155-379 [facility] Work Phone: Comment on above: PATIENT WAS FASTINGP ERFORMED BY: [facility]6370 [facility] [id number] Information: [id number] Platelets (Bld) [#/Vol] 222 10*3/uL Normal 155-379 [facility] Work Phone: Platelets Auto #/vol (Bld) 222 {x10E3/uL} Normal 155-379 [facility] Work Phone: RBC (Bld) [#/Vol] 4.33 {x10E6/uL} Normal 4.14-5.80 [facility] Internal Medicine Work Phone: Comment on above: PATIENT WAS FASTINGP ERFORMED BY: [facility]6370 [facility] [id number] Information: [id number] RBC (Bld) [#/Vol] 4.33 10*6/uL Normal 4.14-5.80 [facility] Internal Medicine Work Phone: RBC Auto #/vol (Bld) 4.33 {x10E6/uL} Normal 4.14-5.80 [facility] Work Phone: WBC (Bld) [#/Vol] 4.4 {x10E3/uL} Normal 3.4-10.8 [facility] Internal Medicine Work Phone: Comment on above: PATIENT WAS FASTINGP ERFORMED BY: [facility]6370 [facility] [id number] Information: [id number] WBC (Bld) [#/Vol] 4.4 10*3/uL Normal 3.4-10.8 [facility] Internal Medicine Work Phone: WBC Auto #/vol (Bld) 4.4 {x10E3/uL} Normal 3.4-10.8 [facility] Work Phone: LIPID PANEL ([id number])Ordered B y: Machine Lay Out Worker on 06-30-2013 Cholesterol in HDL mass conc 34 mg/dL Abnormal [facility] Work Phone: Comment on above: According to ATP-III Guidelines, HDL-C >59 mg/dL is considered anegative risk factor for CHD. PATIENT WAS FASTINGP ERFORMED BY: GUS Gia Mo6370 [facility] [id number] Cholesterol in LDL mass conc 109 mg/dL Abnormal 0-99 [facility] Work Phone: Comment on above: PATIENT WAS FASTINGP ERFORMED BY: GUS Gia Joaquinlin6370 [facility] [id number] Cholesterol in LDL/Cholesterol in HDL mass ratio 3.2 {ratio_units} Normal 0.0-3.6 [facility] Work Phone: Comment on above: PATIENT WAS FASTINGP ERFORMED BY: GUS Lucisinai Ovknhz7862 [facility] [id number] Cholesterol in VLDL mass conc 14 mg/dL Normal 5-40 [facility] Work Phone: Comment on above: PATIENT WAS FASTINGP ERFORMED BY: GUS MarcelinaDayana JoaquinLucsrz4176 [facility] [id number] Cholesterol mass conc 157 mg/dL Normal 100-199 [facility] prehensive Internal Medicine Work Phone: Comment on above: PATIENT WAS FASTINGP ERFORMED BY: GUS Lucisinai Oahgwg5819 [facility] [id number] Triglyceride mass conc 69 mg/dL Normal 0-149 [facility] Work Phone: Comment on above: PATIENT WAS FASTINGP ERFORMED BY: GSU Lucisinai Litzsc0871 [facility] [id number] METABOLIC PANEL, COMPREHENSI VE ([id number])Ordered By: Machine Lay Out Worker on 06-30-2013 Albumin mass conc 4.1 g/dL Normal 3.5-4.8 Compreh ensive Internal Medicine Work Phone: Comment on above: PATIENT WAS FASTINGP ERFORMED BY: GUS Gia Joaquinlin6370 [facility] [id number] Albumin/Globulin mass ratio 1.6 {ratio} Normal 1.1-2.5 [facility] Work Phone: Comment on above: PATIENT WAS FASTINGP ERFORMED BY: GUS Mo[address] [facility] [id number] ALP [Catalytic activity/Vol] 95 U/L Normal 39-117 [facility] Work Phone: ALP enzyme act/vol 95 [iU]/L Normal 39-117 [facility] Internal Medicine Work Phone: Comment on above: PATIENT WAS FASTINGP ERFORMED BY: GUS Joaquinlin[address] [facility] [id number] ALT [Catalytic activity/Vol] 27 U/L Normal 0-44 [facility] Work Phone: ALT enzyme act/vol 27 [iU]/L Normal 0-44 [facility] Internal Medicine Work Phone: Comment on above: PATIENT WAS FASTINGP ERFORMED BY: GUS Joaquinlin6370 [facility] [id number] AST [Catalytic activity/Vol] 37 U/L Normal 0-40 [facility] Internal Medicine Work Phone: AST enzyme act/vol 37 [iU]/L Normal 0-40 [facility] Internal Medicine Work Phone: Comment on above: PATIENT WAS FASTINGP ERFORMED BY: GUS Joaquinlin6370 [facility] [id number] Bilirubin mass conc 1.6 mg/dL Abnormal 0.0-1.2 [facility] Internal Medicine Work Phone: Comment on above: PATIENT WAS FASTINGP ERFORMED BY: GUS Joaquinlin6370 [facility] [id number] Calcium mass conc 9.6 mg/dL Normal 8.6-10.2 [facility] Internal Medicine Work Phone: Comment on above: PATIENT WAS FASTINGP ERFORMED BY: GUS Joaquinlin6370 [facility] [id number] Chloride molar conc 104 mmol/L Normal 97-108 [facility] Internal Medicine Work Phone: Comment on above: PATIENT WAS FASTINGP ERFORMED BY: CB [facility]6370 [facility] [id number] CO2 molar conc 23 mmol/L Normal 19-28 Comprehens yamileth Internal Medicine Work Phone: Comment on above: PATIENT WAS FASTINGP ERFORMED BY: [facility] Bwhpgn1844 [facility] [id number] Creatinine mass conc 0.60 mg/dL Abnormal 0.76-1.27 Comp rehensive Internal Medicine Work Phone: Comment on above: PATIENT WAS FASTINGP ERFORMED BY: [facility]6370 [facility] [id number] GFR/1.73 sq M predicted among blacks CKD-EPI vol rate/area (S/P/Bld) 114 mL/min/1.73 Normal Comprehensiv e Internal Medicine Work Phone: Comment on above: PATIENT WAS FASTINGP ERFORMED BY: [facility]6370 [facility] [id number] GFR/1.73 sq M predicted among non-blacks CKD-EPI vol rate/area (S/P/Bld) 99 mL/min/1.73 Normal [facility] Work Phone: Comment on above: PATIENT WAS FASTINGP ERFORMED BY: [facility]6370 [facility] [id number] Globulin (S) [Mass/Vol] 2.6 g/dL Normal 1.5-4.5 [facility] Work Phone: Comment on above: PATIENT WAS FASTINGP ERFORMED BY: [facility]6370 [facility] [id number] Globulin Calculated mass conc (S) 2.6 g/dL Normal 1.5-4.5 [facility] Work Phone: Glucose mass conc 117 mg/dL Abnormal 65-99 Compreh ensive Internal Medicine Work Phone: Comment on above: PATIENT WAS FASTINGP ERFORMED BY: [facility]6370 [facility] [id number] Potassium molar conc 4.6 mmol/L Normal 3.5-5.2 Comp rehensive Internal Medicine Work Phone: Comment on above: PATIENT WAS FASTINGP ERFORMED BY: GUS Gia Mo6370 [place]va [facility]MD[facility] [id number] Protein mass conc 6.7 g/dL Normal 6.0-8.5 Compreh ensive Internal Medicine Work Phone: Comment on above: PATIENT WAS FASTINGP ERFORMED BY: GUS Gia Mo6370 [facility] [id number] Sodium molar conc 139 mmol/L Normal 134-144 Compreh ensive Internal Medicine Work Phone: Comment on above: PATIENT WAS FASTINGP ERFORMED BY: GUS Lucisinai JoaquinIjasaz8969 [facility] [id number] Urea nitrogen mass conc 16 mg/dL Normal 8-27 [facility] Work Phone: Comment on above: PATIENT WAS FASTINGP ERFORMED BY: GUS Lucisinai JaoquinUixyps0414 [facility] [id number] Urea nitrogen/Creatinine mass ratio 27 mg/mg Abnormal 10-22 [facility] Work Phone: Comment on above: PATIENT WAS FASTINGP ERFORMED BY: GUS Joaquinlin6370 [facility] [id number] MICROALBUMINOrdered By: [employer] Architect on 06-30-2013 Albumin DL <= 20 mg/L mass conc (U) 112.0 ug/mL Abnormal 0.0-17.0 [facility] Work Phone: Comment on above: PATIENT WAS FASTINGP ERFORMED BY: GUS Luci Sirqoi4067 [facility] [id number] Albumin/Creatinine mass ratio (U) 73.3 {mg/g_creat} Abnormal 0.0-30.0 [facility] Work Phone: Comment on above: PATIENT WAS FASTINGP ERFORMED BY: GUS MarcelinaDayana JoaquinPtjvat0146 [facility] [id number] Creatinine mass conc (U) 152.7 mg/dL Normal 22.0-328.0 [facility] Work Phone: Comment on above: PATIENT WAS FASTINGP ERFORMED BY: [facility]6370 [facility] [id number] CBC WITH MANUAL DIFF ([id number]) Ordered By: Machine Lay Out Worker on 02-04-2013 Basophils (Bld) [#/Vol] 0.0 {x10E3/uL} Normal 0.0-0.2 [facility] Work Phone: Comment on above: PATIENT WAS FASTINGP ERFORMED BY: [facility]6370 [facility] [id number] Information: [id number] Basophils (Bld) [#/Vol] 0.0 10*3/uL Normal 0.0-0.2 [facility] Work Phone: Basophils Auto #/vol (Bld) 0.0 {x10E3/uL} Normal 0.0-0.2 [facility] Work Phone: Basophils/100 WBC (Bld) 1 % Normal 0-3 [facility] Work Phone: Comment on above: PATIENT WAS FASTINGP ERFORMED BY: [facility]6370 [facility] [id number] Information: [id number] Basophils/100 WBC Auto (Bld) 1 % Normal 0-3 [facility] Work Phone: Eosinophils (Bld) [#/Vol] 0.4 {x10E3/uL} Normal 0.0-0.4 [facility] Work Phone: Comment on above: PATIENT WAS FASTINGP ERFORMED BY: [facility]6370 [facility] [id number] Information: [id number] Eosinophils (Bld) [#/Vol] 0.4 10*3/uL Normal 0.0-0.4 [facility] Work Phone: Eosinophils Auto #/vol (Bld) 0.4 {x10E3/uL} Normal 0.0-0.4 [facility] Work Phone: Eosinophils/100 WBC (Bld) 7 % Normal 0-7 [facility] Work Phone: Comment on above: PATIENT WAS FASTINGP ERFORMED BY: GUS MarcelinaDayana JoaquinVuwkrj6066 [facility] [id number] Information: [id number] Eosinophils/100 WBC Auto (Bld) 7 % Normal 0-7 [facility] Work Phone: Erythrocyte distribution width (RBC) [Ratio] 14.0 % Normal 12.3-15.4 [facility] Work Phone: Comment on above: PATIENT WAS FASTINGP ERFORMED BY: GUS Joaquinlin6370 [facility] [id number] Information: [id number] Erythrocyte distribution width Auto Ratio (RBC) 14.0 % Normal 12.3-15.4 [facility] Work Phone: Hematocrit (Bld) [Volume fraction] 39.3 % Normal 37.5-51.0 [facility] Work Phone: Comment on above: PATIENT WAS FASTINGP ERFORMED BY: GUS Joaquinlin6370 [facility] [id number] Information: [id number] Hematocrit Auto Volume Fraction (Bld) 39.3 % Normal 37.5-51.0 [facility] Internal Medicine Work Phone: Hemoglobin mass conc (Bld) 13.4 g/dL Normal 12.6-17.7 [facility] Work Phone: Comment on above: PATIENT WAS FASTINGP ERFORMED BY: GUS [facility]6370 [facility] [id number] Information: [id number] Immature granulocytes #/vol (Bld) 0.0 {x10E3/uL} Normal 0.0-0.1 [facility] Work Phone: Comment on above: PATIENT WAS FASTINGP ERFORMED BY: GUS [place] 5037870 [facility] [id number] Information: [id number] Immature granulocytes (Bld) [#/Vol] 0.0 10*3/uL Normal 0.0-0.1 [facility] Work Phone: Immature granulocytes/100 WBC (Bld) 0 % Normal 0-2 [facility] Work Phone: Comment on above: PATIENT WAS FASTINGP ERFORMED BY: [address] [id number] Information: [id number] Lymphocytes (Bld) [#/Vol] 1.6 {x10E3/uL} Normal 0.7-4.5 [facility] Work Phone: Comment on above: PATIENT WAS FASTINGP ERFORMED BY: [address] [id number] Information: [id number] Lymphocytes (Bld) [#/Vol] 1.6 10*3/uL Normal 0.7-4.5 [facility] Work Phone: Lymphocytes Auto #/vol (Bld) 1.6 {x10E3/uL} Normal 0.7-4.5 [facility] Work Phone: Lymphocytes/100 WBC (Bld) 32 % Normal 14-46 [facility] Work Phone: Comment on above: PATIENT WAS FASTINGP ERFORMED BY: [address] [id number] Information: [id number] Lymphocytes/100 WBC Auto (Bld) 32 % Normal 14-46 [facility] Work Phone: MCH (RBC) [Entitic mass] 31.9 pg Normal 26.6-33.0 [facility] Work Phone: Comment on above: PATIENT WAS FASTINGP ERFORMED BY: [address] [id number] Information: [id number] MCH Auto Entitic mass (RBC) 31.9 pg Normal 26.6-33.0 [facility] Work Phone: MCHC (RBC) [Mass/Vol] 34.1 g/dL Normal 31.5-35.7 [facility] Internal Medicine Work Phone: Comment on above: PATIENT WAS FASTINGP ERFORMED BY: WoteElizabeth [place] 1932870 [facility] [id number] Information: [id number] MCHC Auto mass conc (RBC) 34.1 g/dL Normal 31.5-35.7 [facility] Internal Medicine Work Phone: MCV (RBC) [Entitic vol] 94 fL Normal 79-97 [facility] Work Phone: Comment on above: PATIENT WAS FASTINGP ERFORMED BY: Wote Npevoi[address] [place] [address] [id number] Information: [id number] MCV Auto Entitic volume (RBC) 94 fL Normal 79-97 [facility] Work Phone: Monocytes (Bld) [#/Vol] 0.6 {x10E3/uL} Normal 0.1-1.0 [facility] Work Phone: Comment on above: PATIENT WAS FASTINGP ERFORMED BY: WoteElizabeth [place] 1932870 [facility] [id number] Information: [id number] Monocytes (Bld) [#/Vol] 0.6 10*3/uL Normal 0.1-1.0 [facility] Work Phone: Monocytes Auto #/vol (Bld) 0.6 {x10E3/uL} Normal 0.1-1.0 [facility] Work Phone: Monocytes/100 WBC (Bld) 11 % Normal 4-13 [facility] Work Phone: Comment on above: PATIENT WAS FASTINGP ERFORMED BY: [facility] DublinFlowboardElizabeth Ville 1932870 [facility] [id number] Information: [id number] Monocytes/100 WBC Auto (Bld) 11 % Normal 4-13 [facility] Work Phone: Neutrophils (Bld) [#/Vol] 2.4 {x10E3/uL} Normal 1.8-7.8 [facility] Work Phone: Comment on above: PATIENT WAS FASTINGP ERFORMED BY: GUS [facility]6370 [facility] [id number] Information: [id number] Neutrophils (Bld) [#/Vol] 2.4 10*3/uL Normal 1.8-7.8 [facility] Work Phone: Neutrophils Auto #/vol (Bld) 2.4 {x10E3/uL} Normal 1.8-7.8 [facility] Work Phone: Neutrophils/100 WBC (Bld) 49 % Normal 40-74 [facility] Work Phone: Comment on above: PATIENT WAS FASTINGP ERFORMED BY: GUS [facility]6370 [facility] [id number] Information: [id number] Neutrophils/100 WBC Auto (Bld) 49 % Normal 40-74 [facility] Work Phone: Platelets (Bld) [#/Vol] 266 {x10E3/uL} Normal 140-415 [facility] Work Phone: Comment on above: PATIENT WAS FASTINGP ERFORMED BY: [facility]6370 [facility] [id number] Information: [id number] Platelets (Bld) [#/Vol] 266 10*3/uL Normal 140-415 [facility] Work Phone: Platelets Auto #/vol (Bld) 266 {x10E3/uL} Normal 140-415 [facility] Internal Medicine Work Phone: RBC (Bld) [#/Vol] 4.20 {x10E6/uL} Normal 4.14-5.80 [facility] Internal Medicine Work Phone: Comment on above: PATIENT WAS FASTINGP ERFORMED BY: GUS LabCoBayonne Medical CenterEixtnf4352 [facility] [id number] Information: [id number] RBC (Bld) [#/Vol] 4.20 10*6/uL Normal 4.14-5.80 [facility] Internal Medicine Work Phone: RBC Auto #/vol (Bld) 4.20 {x10E6/uL} Normal 4.14-5.80 [facility] Work Phone: WBC (Bld) [#/Vol] 5.0 {x10E3/uL} Normal 4.0-10.5 [facility] Internal Medicine Work Phone: Comment on above: PATIENT WAS FASTINGP ERFORMED BY: [facility]6370 [facility] [id number] Information: [id number] WBC (Bld) [#/Vol] 5.0 10*3/uL Normal 4.0-10.5 [facility] Internal Medicine Work Phone: WBC Auto #/vol (Bld) 5.0 {x10E3/uL} Normal 4.0-10.5 [facility] Work Phone: LIPID PANEL ([id number])Ordered B y: Machine Lay Out Worker on 02-04-2013 Cholesterol in HDL mass conc 31 mg/dL Abnormal [facility] Work Phone: Comment on above: According to ATP-III Guidelines, HDL-C >59 mg/dL is considered anegative risk factor for CHD. PATIENT WAS FASTINGP ERFORMED BY: FirstJobCoBayonne Medical CenterEaheyg0341 [facility] [id number] Cholesterol in LDL mass conc 101 mg/dL Abnormal 0-99 [facility] Work Phone: Comment on above: PATIENT WAS FASTINGP ERFORMED BY: WoteBayonne Medical CenterYljbne5462 [facility] [id number] Cholesterol in LDL/Cholesterol in HDL mass ratio 3.3 {ratio_units} Normal 0.0-3.6 [facility] Work Phone: Comment on above: PATIENT WAS FASTINGP ERFORMED BY: GUS [facility] Szhmef0303 [facility] [id number] Cholesterol in VLDL mass conc 24 mg/dL Normal 5-40 [facility] Work Phone: Comment on above: PATIENT WAS FASTINGP ERFORMED BY: GUS [facility] Mzgbrz0986 [facility] [id number] Cholesterol mass conc 156 mg/dL Normal 100-199 [facility] prehensive Internal Medicine Work Phone: Comment on above: PATIENT WAS FASTINGP ERFORMED BY: [facility] Qeublt1111 [facility] [id number] Triglyceride mass conc 121 mg/dL Normal 0-149 [facility] Work Phone: Comment on above: PATIENT WAS FASTINGP ERFORMED BY: GUS [facility] Tmcdof8435 [facility] [id number] METABOLIC PANEL, COMPREHENSI VE ([id number])Ordered By: Machine Lay Out Worker on 02-04-2013 Albumin mass conc 4.2 g/dL Normal 3.5-4.8 Compreh ensive Internal Medicine Work Phone: Comment on above: PATIENT WAS FASTINGP ERFORMED BY: GUS [facility] Vqwasu4096 [facility] [id number] Albumin/Globulin mass ratio 1.7 {ratio} Normal 1.1-2.5 [facility] Work Phone: Comment on above: PATIENT WAS FASTINGP ERFORMED BY: [facility] Cdnlwr7740 [facility] [id number] ALP [Catalytic activity/Vol] 80 U/L Normal 25-160 [facility] Work Phone: ALP enzyme act/vol 80 [iU]/L Normal 25-160 [facility] Work Phone: Comment on above: Effective February 10, 2013 the reference interval for Alkaline Phosphatase, S will be changing to: Age Male Female 0 - 1 day 45 - 111 45 - 111 2 - 5 days 46 - 119 46 - 119 6 - 10 days 48 - 229 48 - 229 11 - 30 days 59 - 414 59 - 414 1 - 6 months 91 - 445 91 - 445 7 - 12 months 124 - 341 124 - 341 1 - 3 years 130 - 317 130 - 317 4 - 6 years 133 - 309 133 - 309 7 - 12 years 134 - 349 134 - 349 13 years 143 - 396 68 - 209 14 years 107 - 340 62 - 149 15 years 84 - 254 54 - 121 16 years 71 - 186 49 - 108 17 years 61 - 146 45 - 101 18 years 56 - 127 43 - 101 19 - 60 years 44 - 102 42 - 107 61 - 70 years 44 - 103 47 - 112 >70 years 44 - 105 45 - 108 PATIENT WAS FASTINGP ERFORMED BY: GUS Wote Ieigcj9571 [employer] GroupECU [facility] [id number] ALT [Catalytic activity/Vol] 22 U/L Normal 0-44 [facility] Work Phone: ALT enzyme act/vol 22 [iU]/L Normal 0-44 [facility] Internal Medicine Work Phone: Comment on above: PATIENT WAS FASTINGP ERFORMED BY: GUS Wote Fwjydx5302 [employer] GroupECU [facility] [id number] AST [Catalytic activity/Vol] 31 U/L Normal 0-40 [facility] Internal Medicine Work Phone: AST enzyme act/vol 31 [iU]/L Normal 0-40 [facility] Internal Medicine Work Phone: Comment on above: PATIENT WAS FASTINGP ERFORMED BY: GUS LabFlowboard Vfoivw5327 GrijalvaFedCyberECU Health [id number] Bilirubin mass conc 0.9 mg/dL Normal 0.0-1.2 Compr [facility] Internal Medicine Work Phone: Comment on above: PATIENT WAS FASTINGP ERFORMED BY: GUS LabFlowboard Gjegad2528 [employer] GroupECU Health [id number] Calcium mass conc 9.3 mg/dL Normal 8.6-10.2 [facility] Internal Medicine Work Phone: Comment on above: PATIENT WAS FASTINGP ERFORMED BY: GUS LabFlowboard Lrkkgk4872 GrijalvaFedCyberECU Health [id number] Chloride molar conc 103 mmol/L Normal 97-108 Compr ehensive Internal Medicine Work Phone: Comment on above: PATIENT WAS FASTINGP ERFORMED BY: GUS Mo6370 [facility] [id number] CO2 molar conc 23 mmol/L Normal 19-28 Comprehens yamileth Internal Medicine Work Phone: Comment on above: PATIENT WAS FASTINGP ERFORMED BY: GUS [facility] Zkhbqj4817 [facility] [id number] Creatinine mass conc 0.70 mg/dL Abnormal 0.76-1.27 Comp [facility] Work Phone: Comment on above: PATIENT WAS FASTINGP ERFORMED BY: GUS LabCosinai JoaquinQxjwzs0430 [facility] [id number] GFR/1.73 sq M predicted among blacks CKD-EPI vol rate/area (S/P/Bld) 108 mL/min/1.73 Normal Comprehensiv e Internal Medicine Work Phone: Comment on above: PATIENT WAS FASTINGP ERFORMED BY: GUS LabCosinai JoaquinUzqlkp9139 [facility] [id number] GFR/1.73 sq M predicted among non-blacks CKD-EPI vol rate/area (S/P/Bld) 94 mL/min/1.73 Normal [facility] Work Phone: Comment on above: PATIENT WAS FASTINGP ERFORMED BY: GUS LabCo Oecvtl3865 [facility] [id number] Globulin (S) [Mass/Vol] 2.5 g/dL Normal 1.5-4.5 [facility] Work Phone: Comment on above: PATIENT WAS FASTINGP ERFORMED BY: GUS [facility] Yecwgn9963 [facility] [id number] Globulin Calculated mass conc (S) 2.5 g/dL Normal 1.5-4.5 [facility] Work Phone: Glucose mass conc 112 mg/dL Abnormal 65-99 Compreh ensive Internal Medicine Work Phone: Comment on above: PATIENT WAS FASTINGP ERFORMED BY: GUS [facility] Lwpvos3134 [facility] [id number] Potassium molar conc 4.5 mmol/L Normal 3.5-5.2 Comp rehensive Internal Medicine Work Phone: Comment on above: PATIENT WAS FASTINGP ERFORMED BY: GUS [facility] Kzvpqu0818 [facility] [id number] Protein mass conc 6.7 g/dL Normal 6.0-8.5 Compreh ensive Internal Medicine Work Phone: Comment on above: PATIENT WAS FASTINGP ERFORMED BY: GUS [facility] [address]thyup[address] [facility] [id number] Sodium molar conc 138 mmol/L Normal 134-144 Compreh ensive Internal Medicine Work Phone: Comment on above: PATIENT WAS FASTINGP ERFORMED BY: GUS Lab[facility] Xpjdas4092 [facility] [id number] Urea nitrogen mass conc 18 mg/dL Normal 8- [facility] Work Phone: Comment on above: PATIENT WAS FASTINGP ERFORMED BY: GUS [facility] Zyhjsy8924 [facility] [id number] Urea nitrogen/Creatinine mass ratio 26 mg/mg Abnormal 10- [facility] Work Phone: Comment on above: PATIENT WAS FASTINGP ERFORMED BY: GUS [facility] Pazazw2978 [facility] [id number] HgA1C , Office ([id number])Ordere d By: Yany Weber on 09-27-2012 Hemoglobin A1c/Hemoglobin.total mass fraction (Bld) 6.1 % Normal 4.6 - 7.1 Comprehensiv e Internal Medicine Work Phone: CBC WITH MANUAL DIFF ([id number]) Ordered By: Machine Lay Out Worker on 09-25-2012 Basophils (Bld) [#/Vol] 0.0 {x10E3/uL} Normal 0.0-0.2 [facility] Work Phone: Comment on above: PATIENT WAS FASTINGP ERFORMED BY: [facility]6370 [facility] [id number] Information: ADD [id number] AND DRAW FEE 99 6660 Basophils (Bld) [#/Vol] 0.0 10*3/uL Normal 0.0-0.2 [facility] Work Phone: Basophils Auto #/vol (Bld) 0.0 {x10E3/uL} Normal 0.0-0.2 [facility] Work Phone: Basophils/100 WBC (Bld) 1 % Normal 0-3 [facility] Work Phone: Comment on above: PATIENT WAS FASTINGP ERFORMED BY: [place] 1932870 [facility] [id number] Information: ADD [id number] AND DRAW FEE 99 6660 Basophils/100 WBC Auto (Bld) 1 % Normal 0-3 [facility] Work Phone: Eosinophils (Bld) [#/Vol] 0.3 {x10E3/uL} Normal 0.0-0.4 [facility] Work Phone: Comment on above: PATIENT WAS FASTINGP ERFORMED BY: GUS [facility] Laser CenterFlowboardElizabeth Ville [id number] [facility] [id number] Information: ADD [id number] AND DRAW FEE 99 6660 Eosinophils (Bld) [#/Vol] 0.3 10*3/uL Normal 0.0-0.4 [facility] Work Phone: Eosinophils Auto #/vol (Bld) 0.3 {x10E3/uL} Normal 0.0-0.4 [facility] Work Phone: Eosinophils/100 WBC (Bld) 6 % Normal 0-7 [facility] Work Phone: Comment on above: PATIENT WAS FASTINGP ERFORMED BY: [place] 0630770 [facility] [id number] Information: ADD [id number] AND DRAW FEE 99 6660 Eosinophils/100 WBC Auto (Bld) 6 % Normal 0-7 [facility] Work Phone: Erythrocyte distribution width (RBC) [Ratio] 14.0 % Normal 12.3-15.4 [facility] Work Phone: Comment on above: PATIENT WAS FASTINGP ERFORMED BY: GUS Joaquinlin6370 [facility] [id number] Information: ADD [id number] AND DRAW FEE 99 6660 Erythrocyte distribution width Auto Ratio (RBC) 14.0 % Normal 12.3-15.4 [facility] Work Phone: Hematocrit (Bld) [Volume fraction] 41.8 % Normal 37.5-51.0 [facility] Internal Medicine Work Phone: Comment on above: PATIENT WAS FASTINGP ERFORMED BY: GUS Joaquinlin6370 [facility] [id number] Information: ADD [id number] AND DRAW FEE 99 6660 Hematocrit Auto Volume Fraction (Bld) 41.8 % Normal 37.5-51.0 [facility] Internal Medicine Work Phone: Hemoglobin mass conc (Bld) 14.2 g/dL Normal 12.6-17.7 [facility] Work Phone: Comment on above: PATIENT WAS FASTINGP ERFORMED BY: GUS Joaquinlin6370 [facility] [id number] Information: ADD [id number] AND DRAW FEE 99 6660 Immature granulocytes #/vol (Bld) 0.0 {x10E3/uL} Normal 0.0-0.1 [facility] Work Phone: Comment on above: PATIENT WAS FASTINGP ERFORMED BY: GUS [facility] Laser CenterMaria AleajndraBayonne Medical CenterDwneev0673 [facility] [id number] Information: ADD [id number] AND DRAW FEE 99 6660 Immature granulocytes (Bld) [#/Vol] 0.0 10*3/uL Normal 0.0-0.1 [facility] Work Phone: Immature granulocytes/100 WBC (Bld) 0 % Normal 0-2 [facility] Work Phone: Comment on above: PATIENT WAS FASTINGP ERFORMED BY: CB [place] [id number] [facility] [id number] Information: ADD [id number] AND DRAW FEE 99 6660 Lymphocytes (Bld) [#/Vol] 1.8 {x10E3/uL} Normal 0.7-4.5 [facility] Work Phone: Comment on above: PATIENT WAS FASTINGP ERFORMED BY: GUS [place] 5037870 [facility] [id number] Information: ADD [id number] AND DRAW FEE 99 6660 Lymphocytes (Bld) [#/Vol] 1.8 10*3/uL Normal 0.7-4.5 [facility] Work Phone: Lymphocytes Auto #/vol (Bld) 1.8 {x10E3/uL} Normal 0.7-4.5 [facility] Work Phone: Lymphocytes/100 WBC (Bld) 37 % Normal [facility] Work Phone: Comment on above: PATIENT WAS FASTINGP ERFORMED BY: GUS [address] [id number] Information: ADD [id number] AND DRAW FEE 99 6660 Lymphocytes/100 WBC Auto (Bld) 37 % Normal -46 [facility] Work Phone: MCH (RBC) [Entitic mass] 31.1 pg Normal 26.6-33.0 [facility] Work Phone: Comment on above: PATIENT WAS FASTINGP ERFORMED BY: [place] 0630770 [facility] [id number] Information: ADD [id number] AND DRAW FEE 99 6660 MCH Auto Entitic mass (RBC) 31.1 pg Normal 26.6-33.0 [facility] Work Phone: MCHC (RBC) [Mass/Vol] 34.0 g/dL Normal 31.5-35.7 [facility] prehensive Internal Medicine Work Phone: Comment on above: PATIENT WAS FASTINGP ERFORMED BY: [address] [id number] Information: ADD [id number] AND DRAW FEE 99 6660 MCHC Auto mass conc (RBC) 34.0 g/dL Normal 31.5-35.7 [facility] Work Phone: MCV (RBC) [Entitic vol] 92 fL Normal 79-97 [facility] Work Phone: Comment on above: PATIENT WAS FASTINGP ERFORMED BY: WoteBayonne Medical CenterFpqkop2133 [facility] [id number] Information: ADD [id number] AND DRAW FEE 99 6660 MCV Auto Entitic volume (RBC) 92 fL Normal 79-97 [facility] Work Phone: Monocytes (Bld) [#/Vol] 0.5 {x10E3/uL} Normal 0.1-1.0 [facility] Work Phone: Comment on above: PATIENT WAS FASTINGP ERFORMED BY: GUS WoteBayonne Medical CenterIlibsl2683 [facility] [id number] Information: ADD [id number] AND DRAW FEE 99 6660 Monocytes (Bld) [#/Vol] 0.5 10*3/uL Normal 0.1-1.0 [facility] Work Phone: Monocytes Auto #/vol (Bld) 0.5 {x10E3/uL} Normal 0.1-1.0 [facility] Work Phone: Monocytes/100 WBC (Bld) 10 % Normal 4- [facility] Work Phone: Comment on above: PATIENT WAS FASTINGP ERFORMED BY: WoteBayonne Medical CenterIgojqi9759 [facility] [id number] Information: ADD [id number] AND DRAW FEE 99 6660 Monocytes/100 WBC Auto (Bld) 10 % Normal 4-13 [facility] Work Phone: Neutrophils (Bld) [#/Vol] 2.3 {x10E3/uL} Normal 1.8-7.8 [facility] Work Phone: Comment on above: PATIENT WAS FASTINGP ERFORMED BY: GUS [facility]6370 [facility] [id number] Information: ADD [id number] AND DRAW FEE 99 6660 Neutrophils (Bld) [#/Vol] 2.3 10*3/uL Normal 1.8-7.8 [facility] Work Phone: Neutrophils Auto #/vol (Bld) 2.3 {x10E3/uL} Normal 1.8-7.8 [facility] Work Phone: Neutrophils/100 WBC (Bld) 46 % Normal 40-74 [facility] Internal Medicine Work Phone: Comment on above: PATIENT WAS FASTINGP ERFORMED BY: GUS [place] 5037870 [facility] [id number] Information: ADD [id number] AND DRAW FEE 99 6660 Neutrophils/100 WBC Auto (Bld) 46 % Normal 40-74 [facility] Internal Medicine Work Phone: Platelets (Bld) [#/Vol] 231 {x10E3/uL} Normal 140-415 [facility] Internal Medicine Work Phone: Comment on above: PATIENT WAS FASTINGP ERFORMED BY: GUS Joaquinlin6370 [facility] [id number] Information: ADD [id number] AND DRAW FEE 99 6660 Platelets (Bld) [#/Vol] 231 10*3/uL Normal 140-415 [facility] Internal Medicine Work Phone: Platelets Auto #/vol (Bld) 231 {x10E3/uL} Normal 140-415 [facility] Internal Medicine Work Phone: RBC (Bld) [#/Vol] 4.56 {x10E6/uL} Normal 4.14-5.80 [facility] Internal [facility] Work Phone: Comment on above: PATIENT WAS FASTINGP ERFORMED BY: GUS [place] [id number] [facility] [id number] Information: ADD [id number] AND DRAW FEE 99 6660 RBC (Bld) [#/Vol] 4.56 10*6/uL Normal 4.14-5.80 [facility] Internal Medicine Work Phone: RBC Auto #/vol (Bld) 4.56 {x10E6/uL} Normal 4.14-5.80 [facility] Work Phone: WBC (Bld) [#/Vol] 5.0 {x10E3/uL} Normal 4.0-10.5 [facility] Internal Medicine Work Phone: Comment on above: PATIENT WAS FASTINGP ERFORMED BY: GUS [employer]70 G[place]va NeighborMDAtrium Health [facility] [id number] Information: ADD [id number] AND DRAW FEE 99 6660 WBC (Bld) [#/Vol] 5.0 10*3/uL Normal 4.0-10.5 [facility] Internal Medicine Work Phone: WBC Auto #/vol (Bld) 5.0 {x10E3/uL} Normal 4.0-10.5 [facility] Work Phone: LIPID PANEL ([id number])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 PATIENT WAS FASTINGP ERFORMED BY: GUS [employer]6370 G[place]va NeighborMDAtrium Health [facility] [id number] Cholesterol in LDL mass conc 74 mg/dL Normal 0-99 [facility] Work Phone: Comment on above: PATIENT WAS FASTINGP ERFORMED BY: [employer]6370 [place]va NeighborMDAtrium Health [place] [id number] Cholesterol in LDL/Cholesterol in HDL mass ratio 2.2 {ratio_units} Normal 0.0-3.6 [facility] Work Phone: Comment on above: PATIENT WAS FASTINGP ERFORMED BY: GUS [employer]70 G[place]va NeighborMDAtrium Health [facility] [id number] Cholesterol in VLDL mass conc 29 mg/dL Normal 5-40 [facility] Work Phone: Comment on above: PATIENT WAS FASTINGP ERFORMED BY: GUS LabCosinai JoaquinZqsxtl9480 Grijalva [facility] Hospitalblin [place] [id number] Cholesterol mass conc 136 mg/dL Normal 100-199 [facility] prehensive Internal Medicine Work Phone: Comment on above: PATIENT WAS FASTINGP ERFORMED BY: GUS LabCosinai JoaquinVefalm[address] [facility] [id number] Triglyceride mass conc 145 mg/dL Normal 0-149 [facility] Work Phone: Comment on above: PATIENT WAS FASTINGP ERFORMED BY: GUS LabCosinai JoaquinTfwqcn[address] [facility] [id number] METABOLIC PANEL, COMPREHENSI VE ([id number])Ordered By: Machine Lay Out Worker on 09-25-2012 Albumin mass conc 4.2 g/dL Normal 3.5-4.8 Compreh ensive Internal Medicine Work Phone: Comment on above: PATIENT WAS FASTINGP ERFORMED BY: GUS Joaquinlin[address] [facility] [id number] Albumin/Globulin mass ratio 1.8 {ratio} Normal 1.1-2.5 [facility] Work Phone: Comment on above: PATIENT WAS FASTINGP ERFORMED BY: GUS LabDayana JoaquinRxpkmp5686 [facility] [id number] ALP [Catalytic activity/Vol] 71 U/L Normal 25-160 [facility] Work Phone: ALP enzyme act/vol 71 [iU]/L Normal 25-160 [facility] Internal Medicine Work Phone: Comment on above: PATIENT WAS FASTINGP ERFORMED BY: GUS [facility] Xvfqts[address] [facility] [id number] ALT [Catalytic activity/Vol] 24 U/L Normal 0-44 [facility] Work Phone: ALT enzyme act/vol 24 [iU]/L Normal 0-44 [facility] Internal Medicine Work Phone: Comment on above: PATIENT WAS FASTINGP ERFORMED BY: GUS LabCoBayonne Medical CenterKnnldr6996 [facility] [id number] AST [Catalytic activity/Vol] 31 U/L Normal 0-40 [facility] Work Phone: AST enzyme act/vol 31 [iU]/L Normal 0-40 Compre [facility] Internal Medicine Work Phone: Comment on above: PATIENT WAS FASTINGP ERFORMED BY: GUS [facility] Gikjkk9420 Grijalva RoadAtrium Health [facility] [id number] Bilirubin mass conc 1.2 mg/dL Normal 0.0-1.2 Compr ensive Internal Medicine Work Phone: Comment on above: PATIENT WAS FASTINGP ERFORMED BY: GUS [facility] Hxtrkw[address] [facility] [id number] Calcium mass conc 9.4 mg/dL Normal 8.6-10.2 Compreh [facility]ucsonive Internal Medicine Work Phone: Comment on above: PATIENT WAS FASTINGP ERFORMED BY: GUS LabCosinai JoaquinFjpolc3813 [facility] [id number] Chloride molar conc 105 mmol/L Normal 97-108 [facility] Internal Medicine Work Phone: Comment on above: PATIENT WAS FASTINGP ERFORMED BY: GUS LabCosinai JoaquinEutnqy2491 [facility] [id number] CO2 molar conc 22 mmol/L Normal 20-32 Comprehens yamileth Internal Medicine Work Phone: Comment on above: PATIENT WAS FASTINGP ERFORMED BY: GUS [facility] Lnjfys5848 [facility] [id number] Creatinine mass conc 0.74 mg/dL Abnormal 0.76-1.27 Comp [facility] Internal Medicine Work Phone: Comment on above: PATIENT WAS FASTINGP ERFORMED BY: GUS [facility] Jufrlm4528 [facility] [id number] GFR/1.73 sq M predicted among blacks CKD-EPI vol rate/area (S/P/Bld) 106 mL/min/1.73 Normal Comprehensiv e Internal Medicine Work Phone: Comment on above: PATIENT WAS FASTINGP ERFORMED BY: GUS [facility] [address]qfzfg[address] [facility] [id number] GFR/1.73 sq M predicted among non-blacks CKD-EPI vol rate/area (S/P/Bld) 92 mL/min/1.73 Normal [facility] Work Phone: Comment on above: PATIENT WAS FASTINGP ERFORMED BY: [facility] [address]xjtaw[address] [facility] [id number] Globulin (S) [Mass/Vol] 2.4 g/dL Normal 1.5-4.5 [facility] Work Phone: Comment on above: PATIENT WAS FASTINGP ERFORMED BY: [facility] Ndfwha7642 [facility] [id number] Globulin Calculated mass conc (S) 2.4 g/dL Normal 1.5-4.5 [facility] Work Phone: Glucose mass conc 123 mg/dL Abnormal 65-99 Compreh ensive Internal Medicine Work Phone: Comment on above: PATIENT WAS FASTINGP ERFORMED BY: GUS [facility] Myinfe4282 [facility] [id number] Potassium molar conc 4.7 mmol/L Normal 3.5-5.2 Comp rehensive Internal Medicine Work Phone: Comment on above: PATIENT WAS FASTINGP ERFORMED BY: [facility] Ovpocj1456 [facility] [id number] Protein mass conc 6.6 g/dL Normal 6.0-8.5 Compreh ensive Internal Medicine Work Phone: Comment on above: PATIENT WAS FASTINGP ERFORMED BY: [facility] Yibxdl4601 [facility] [id number] Sodium molar conc 142 mmol/L Normal 134-144 Compreh ensive Internal Medicine Work Phone: Comment on above: PATIENT WAS FASTINGP ERFORMED BY: [facility] Ubxfol8849 [facility] [id number] Urea nitrogen mass conc 11 mg/dL Normal 8-27 [facility] Work Phone: Comment on above: PATIENT WAS FASTINGP ERFORMED BY: [facility] Helaxt[address] [facility] [id number] Urea nitrogen/Creatinine mass ratio 15 mg/mg Normal 10-22 [facility] Work Phone: Comment on above: PATIENT WAS FASTINGP ERFORMED BY: [facility] Lprnqu[address] [facility] [id number] MICROALBUMINOrdered By: Syst em Network Solutions Architect on 09-25-2012 Albumin DL <= 20 mg/L mass conc (U) 30.6 ug/mL Abnormal 0.0-17.0 [facility] Work Phone: Comment on above: PATIENT WAS FASTINGP ERFORMED BY: [facility] Dprgug[address] [facility] [id number] Albumin/Creatinine mass ratio (U) 20.0 {mg/g_creat} Normal 0.0-30.0 [facility] Work Phone: Comment on above: PATIENT WAS FASTINGP ERFORMED BY: [facility] Gzqqfl4057 [facility] [id number] Creatinine mass conc (U) 153.1 mg/dL Normal 22.0-328.0 [facility] Work Phone: Comment on above: PATIENT WAS FASTINGP ERFORMED BY: [facility] Mkdygu6675 [facility] [id number] Microscopic ExaminationOrder ed By: Machine Lay Out Worker on 09-25-2012 Bacteria LM.HPF #/area (Urine sed) None seen Normal [facility] Work Phone: Epithelial cells LM.HPF #/area (Urine sed) None seen Normal 0 - 10 [facility] Work Phone: Mucus LM Ql (Urine sed) Present Normal [facility] Work Phone: RBC LM.HPF #/area (Urine sed) 0-3 Normal 0 - 3 [facility] Work Phone: WBC LM.HPF #/area (Urine sed) 0-5 Normal 0 - 5 [facility] Work Phone: PSA (PROSTATE SPECIFIC ANTIG EN) (V76.44)Ordered By: Machine Lay Out Worker on 09-25-2012 Prostate specific Ag mass conc 2.2 ng/mL Normal 0.0-4.0 [facility] Work Phone: Comment on above: Moiz ECLIA methodol ogy. .According to the [place] [employer], Serum PSA shoulddecrease and remain at undetectable levels after radicalprostatectomy. The AUA defines biochemical recurrence as an initialPSA value 0.2 ng/mL or greater followed by a subsequent confirmatoryPSA value 0.2 ng/mL or greater.Values obtained with different assay methods or kits cannot be usedinterchangeably. Results cannot be interpreted as absolute evidenceof the presence or absence of malignant disease. PATIENT WAS FASTINGP ERFORMED BY: CB [facility] Bcmopc9749 Grij[address]va RoadDublin [place] [id number] TSH ([id number])Ordered By: Clandestine Developmente m Network Solutions Architect on 09-25-2012 Thyrotropin Qn 2.870 {uIU/mL} Normal 0.450-4.50 0 [facility] Work Phone: Comment on above: PATIENT WAS FASTINGP ERFORMED BY: CB [facility] Tcirqh4350 [address] RoadDublin [place] [id number] URINALYSIS, W/ MICRO ([id number]) Ordered By: Machine Lay Out Worker on 09-25-2012 Appearance Nom (U) Clear Normal Compre hensive Internal Medicine Work Phone: Comment on above: PATIENT WAS FASTINGP ERFORMED BY: CB [facility] Cjqqno5862 [address] RoadDublin [place] [id number] Bilirubin Ql (U) Negative Normal Comprehe nsive Internal Medicine Work Phone: Comment on above: PATIENT WAS FASTINGP ERFORMED BY: CB [facility] Grpyzi9453 [address] RoadDublin [place] [id number] Bilirubin Ql (U) Negative Normal Comprehe nsive Internal Medicine Work Phone: Color Nom (U) Yellow Normal Comprehensi ve Internal Medicine Work Phone: Comment on above: PATIENT WAS FASTINGP ERFORMED BY: CB [facility] Shnljw4220 [address] RoadDublin [place] [id number] Glucose Ql (U) Negative Normal Comprehens yamileth Internal Medicine Work Phone: Comment on above: PATIENT WAS FASTINGP ERFORMED BY: GUS [facility] Amtjzo5517 [address]Dublin [place] [id number] Glucose Ql (U) Negative Normal Comprehens [facility] Work Phone: Hemoglobin Ql (U) Negative Normal Compreh ensive Internal Medicine Work Phone: Comment on above: PATIENT WAS FASTINGP ERFORMED BY: GUS [facility] Enccsy[address] RoadDuin [place] [id number] Hemoglobin Ql (U) Negative Normal Compreh ensive Internal Medicine Work Phone: Hemoglobin Test strip Ql (U) Negative Normal [facility] Work Phone: Ketones Ql (U) Negative Normal Comprehens [facility] Work Phone: Comment on above: PATIENT WAS FASTINGP ERFORMED BY: GUS Joaquinlin[address] [facility] [id number] Ketones Ql (U) Negative Normal Comprehens [facility] Work Phone: Leukocyte esterase Test strip Ql (U) Negative Normal [facility] Work Phone: Comment on above: PATIENT WAS FASTINGP ERFORMED BY: GUS Joaquinlin[address] [facility] [id number] Leukocyte esterase Test strip Ql (U) Negative Normal [facility] Work Phone: Microscopic observation LM Nom (Urine sed) See below: Normal [facility] Work Phone: Comment on above: PATIENT WAS FASTINGP ERFORMED BY: GUS [facility] Zaffgk9335 [address] RoadDublin [place] [id number] Microscopic observation LM Nom (Urine sed) MICRON Normal [facility] Work Phone: Comment on above: Microscopic follows if indicated. PATIENT WAS FASTINGP ERFORMED BY: GUS [facility] Xcvxte3097 [address] RoadAtrium Health Cabarrusin [place] [id number] Nitrite Ql (U) Negative Normal Comprehens [facility] Work Phone: Comment on above: PATIENT WAS FASTINGP ERFORMED BY: GUS [facility] Uktlxo5819 [address] RoadDublin [place] [id number] Nitrite Ql (U) Negative Normal Comprehens [facility] Work Phone: Nitrite Test strip Ql (U) Negative Normal [facility] Work Phone: pH (U) 7.0 [pH] Normal 5.0-7.5 [facility] Work Phone: Comment on above: PATIENT WAS FASTINGP ERFORMED BY: GUS [facility] Rqhwcu1485 [address] RoadDublin [place] [id number] pH Test strip (U) 7.0 [pH] Normal 5.0-7.5 Compreh ensive Internal Medicine Work Phone: Protein Ql (U) Trace Normal Comprehens [facility] Work Phone: Comment on above: PATIENT WAS FASTINGP ERFORMED BY: GUS [facility] Bmgtkh8895 [address] RoadDublin [place] [id number] Protein Test strip Ql (U) Trace Normal [facility] Work Phone: Specific gravity Relative Density (U) 1.025 1 Normal 1.005-1.03 0 [facility] Work Phone: Comment on above: PATIENT WAS FASTINGP ERFORMED BY: GUS [facility] Xqsmmu0409 [address] RoadDublin [place] [id number] Urobilinogen (U) [Mass/Vol] 0.2 mg/dL Normal 0.0-1.9 [facility] Work Phone: Urobilinogen Test strip mass conc (U) 0.2 mg/dL Normal 0.0-1.9 Comprehensiv e Internal Medicine Work Phone: Comment on above: PATIENT WAS FASTINGP ERFORMED BY: GUS [facility] Zytzne55[address] RoadDublin [place] [id number] THYROIDOrdered By: Callie sosa on 09-16-2012 THYROID See Note Normal [facility] Work Phone: Comment on above: PROCEDURE: THYROID U LTRASOUND REASON FOR EXAM: Male, 72 years old. Cellulitis, treated with athyrotoxic medication TECHNIQUE: Ultrasound evaluation of the thyroid was performed withreal-time and static ovalle-scale imaging. COMPARISON: Thyroid sonogram from 09/14/2011 and I123 thyroid uptake andscan from 10/03/2011 FINDINGS: RIGHT LOBE: The right lobe of the thyroid gland measures 4.8 x 1.8 x 1.5cm. There is a homogeneous echotexture. There are multiple nodulesscattered throughout the right thyroid lobe. Direct comparison withprevious examination demonstrates no change in appearance of theneovascularity of the nodules. The largest measures 1.1 cm x 0.9 cm x0.9cm and occurs in the midportion of the gland. The largest nodule ishypoechoic, solid, demonstrates predominantly peripheral nodular flowwithsome internal flow. There are no identified calcifications throughouttheglandular nodules. There is no interval change. The next two largestnodules in the right lobe are 0.8 x 0.5 x 0.5 cm in the upper pole and0.5x 0.7 x 0.7 cm in the interpolar region. These all appear solid andunchanged. LEFT LOBE: The left lobe of the thyroid gland measures 5.2 x 1.7 x 1.8cm.There is a homogeneous echotexture. There are at least 6 identifiednodules throughout the left thyroid lobe. Direct comparison withpreviousstudy demonstrates no significant interval change. The majority of thenodules appear predominantly solid. There are no calcifications.Vascularflow is uniformly soumya-nodular with some intra-nodular flow included.Thelargest nodule is 1.4 x 1.0 x 0.9 cm occurring in the interpolar region.The next largest nodules are 0.6 x 0.5 x 0.5 cm occurring in the upperpole. The next nodule is 0.5 x 0.3 x 0.3 cm occurring in the interpolarregion. Next is 0.4 x 0.4 x 0.3 cm occurring in the lower pole. Twoadditional nodules occurring in the lower portion of .5 to 0.6 x 0.3 cmand0.5 is reported 3 posterior 0.3-cm. ISTHMUS: The isthmus measures 3 millimeters. IMPRESSION:Multiple bilateral thyroid nodules sonographically unchanged in size andcharacter from previous examination. Signed:Bree Salgado D.O.September 17, 2012 at 12:37:10 AM [id number] Signed DL/DL If you are the referring physician and would like to consult with theradiologist who provided this interpretation, please contact Shasta Yates at [phone]. If this radiologist is unavailable, you will bedirected to another radiologist to assist. If you are a patient with a question regarding this report, pleasecontactyour referring physician directly. Professional Interpretation Provided By: Sensor[employer], Phone , These documents contain legally protected and confidential healthinformation intended only for the use of the individual or entity namedabove. If you are not the intended recipient, you are hereby notifiedthatany disclosure, copying, distribution, or other use of these documents isstrictly prohibited. If you have received this information in error,pleasenotify the sender immediately and arrange for the return or destructionofthese documents. Dictated on 09/16/12 1342 by Alis Salgado DOeTranscribed on 09/17/12 0049 by ITS IMPORTSign by Bree Salgado DO on 09/17/12 0050 Sign by: Bree Salgado DO GREG CULTURE-STOOL ([id number])Ord ered By: Machine Lay Out Worker on 07-12-2012 Bacteria identified Cx Nom (Unsp spec) [facility] Normal [facility] Work Phone: Comment on above: No Salmonella or Angle gella recovered. PATIENT NOT FASTINGP ERFORMED BY: [facility] Nyxqrp9405Brainspace CorporationECU Health [id number] Information: [id number] Bacteria identified Cx Nom (Unsp spec) [facility] Normal [facility] Work Phone: Comment on above: No Campylobacter spe cies isolated. PATIENT NOT FASTINGP ERFORMED BY: [facility] Sfakzz2276 [employer] Media GroupECU Health [id number] Information: [id number] Campylobacter sp identified Org specific cx Nom (St) Final report Normal Comprehensi ve Internal Medicine Work Phone: Comment on above: PATIENT NOT FASTINGP ERFORMED BY: CB [facility] Kvctru8453 [address] RoadDublin [place] [id number] Information: [id number] E. coli shiga-like toxin IA Ql (St) Negative Normal [facility] Work Phone: Comment on above: PATIENT NOT FASTINGP ERFORMED BY: CB [facility] Gyepbq2[address] RoadDublin [place] [id number] Information: [id number] E. coli shiga-like toxin IA Ql (Stl) Negative Normal [facility] Work Phone: Salmonella and Shigella sp identified Org specific cx Nom (St) Final report Normal Comprehensi ve Internal Medicine Work Phone: Comment on above: PATIENT NOT FASTINGP ERFORMED BY: CB [facility] Oloafx[address] [facility] [place] [id number] Information: [id number] LEUKOCYTE COUNT, FECAL (8905 5)Ordered By: Machine Lay Out Worker on 07-12-2012 WBC LM Ql (St) NWBC Normal Comprehens [facility] Work Phone: Comment on above: No white blood cells seen. PATIENT NOT FASTINGP ERFORMED BY: GUS [facility] Hbueam7[address] [facility] [place] [id number] WBC LM Ql (St) Final report Normal Comprehe nsive Internal Medicine Work Phone: Comment on above: Reference Range: Non e Seen PATIENT NOT FASTINGP ERFORMED BY: CB [facility] Vxojyk[address]75 [address] [facility]in [place] [id number] C-REACTIVE PROTEIN ([id number])Or dered By: Machine Lay Out Worker on 06-24-2012 CRP mass conc 34.5 mg/L Abnormal 0.0-4.9 Comprehensi ve Internal Medicine Work Phone: Comment on above: PATIENT NOT FASTINGP ERFORMED BY: CB [facility] Trwara[address] [facility]in [place] [id number] CBC WITH MANUAL DIFF ([id number]) Ordered By: Machine Lay Out Worker on 06-24-2012 Basophils (Bld) [#/Vol] 0.0 {x10E3/uL} Normal 0.0-0.2 [facility] Work Phone: Comment on above: PATIENT NOT FASTINGP ERFORMED BY: GUS [place] [id number] [facility] [id number] Information: [id number] Basophils (Bld) [#/Vol] 0.0 10*3/uL Normal 0.0-0.2 [facility] Work Phone: Basophils Auto #/vol (Bld) 0.0 {x10E3/uL} Normal 0.0-0.2 [facility] Work Phone: Basophils/100 WBC (Bld) 0 % Normal 0-3 [facility] Work Phone: Comment on above: PATIENT NOT FASTINGP ERFORMED BY: [place] 0630770 [facility] [id number] Information: [id number] Basophils/100 WBC Auto (Bld) 0 % Normal 0-3 [facility] Work Phone: Eosinophils (Bld) [#/Vol] 0.1 {x10E3/uL} Normal 0.0-0.4 [facility] Work Phone: Comment on above: PATIENT NOT FASTINGP ERFORMED BY: [place] 0630770 [facility] [id number] Information: [id number] Eosinophils (Bld) [#/Vol] 0.1 10*3/uL Normal 0.0-0.4 [facility] Work Phone: Eosinophils Auto #/vol (Bld) 0.1 {x10E3/uL} Normal 0.0-0.4 [facility] Work Phone: Eosinophils/100 WBC (Bld) 1 % Normal 0-7 [facility] Work Phone: Comment on above: PATIENT NOT FASTINGP ERFORMED BY: [facility]6370 [facility] [id number] Information: [id number] Eosinophils/100 WBC Auto (Bld) 1 % Normal 0-7 [facility] Work Phone: Erythrocyte distribution width (RBC) [Ratio] 12.9 % Normal 12.3-15.4 [facility] Work Phone: Comment on above: PATIENT NOT FASTINGP ERFORMED BY: [place] [id number] [facility] [id number] Information: [id number] Erythrocyte distribution width Auto Ratio (RBC) 12.9 % Normal 12.3-15.4 [facility] Work Phone: Hematocrit (Bld) [Volume fraction] 40.8 % Normal 37.5-51.0 [facility] Work Phone: Comment on above: PATIENT NOT FASTINGP ERFORMED BY: [address] [id number] Information: [id number] Hematocrit Auto Volume Fraction (Bld) 40.8 % Normal 37.5-51.0 [facility] Internal Medicine Work Phone: Hemoglobin mass conc (Bld) 13.7 g/dL Normal 12.6-17.7 [facility] Work Phone: Comment on above: PATIENT NOT FASTINGP ERFORMED BY: [facility]6370 [facility] [id number] Information: [id number] Immature granulocytes #/vol (Bld) 0.0 {x10E3/uL} Normal 0.0-0.1 [facility] Work Phone: Comment on above: PATIENT NOT FASTINGP ERFORMED BY: GUS [facility]6370 [facility] [id number] Information: [id number] Immature granulocytes (Bld) [#/Vol] 0.0 10*3/uL Normal 0.0-0.1 [facility] Work Phone: Immature granulocytes/100 WBC (Bld) 0 % Normal 0-2 [facility] Work Phone: Comment on above: PATIENT NOT FASTINGP ERFORMED BY: GUS Mo6370 [facility] [id number] Information: [id number] Lymphocytes (Bld) [#/Vol] 1.1 {x10E3/uL} Normal 0.7-4.5 [facility] Work Phone: Comment on above: PATIENT NOT FASTINGP ERFORMED BY: GUS [place] [id number] [facility] [id number] Information: [id number] Lymphocytes (Bld) [#/Vol] 1.1 10*3/uL Normal 0.7-4.5 [facility] Work Phone: Lymphocytes Auto #/vol (Bld) 1.1 {x10E3/uL} Normal 0.7-4.5 [facility] Work Phone: Lymphocytes/100 WBC (Bld) 11 % Abnormal -46 [facility] Work Phone: Comment on above: PATIENT NOT FASTINGP ERFORMED BY: GUS Joaquinlin6370 [facility] [id number] Information: [id number] Lymphocytes/100 WBC Auto (Bld) 11 % Abnormal 14-46 [facility] Work Phone: MCH (RBC) [Entitic mass] 31.6 pg Normal 26.6-33.0 [facility] Work Phone: Comment on above: PATIENT NOT FASTINGP ERFORMED BY: GUS [facility] CenterDaayna Oclkiz7440 [facility] [id number] Information: [id number] MCH Auto Entitic mass (RBC) 31.6 pg Normal 26.6-33.0 [facility] Work Phone: MCHC (RBC) [Mass/Vol] 33.6 g/dL Normal 31.5-35.7 [facility] prehensive Internal Medicine Work Phone: Comment on above: PATIENT NOT FASTINGP ERFORMED BY: GUS [facility]6370 [facility] [id number] Information: [id number] MCHC Auto mass conc (RBC) 33.6 g/dL Normal 31.5-35.7 [facility] Work Phone: MCV (RBC) [Entitic vol] 94 fL Normal 79-97 [facility] Work Phone: Comment on above: PATIENT NOT FASTINGP ERFORMED BY: GUS [facility]6370 [facility] [id number] Information: [id number] MCV Auto Entitic volume (RBC) 94 fL Normal 79-97 [facility] Work Phone: Monocytes (Bld) [#/Vol] 0.8 {x10E3/uL} Normal 0.1-1.0 [facility] Work Phone: Comment on above: PATIENT NOT FASTINGP ERFORMED BY: GUS [facility]Har[facility]6370 [facility] [id number] Information: [id number] Monocytes (Bld) [#/Vol] 0.8 10*3/uL Normal 0.1-1.0 [facility] Work Phone: Monocytes Auto #/vol (Bld) 0.8 {x10E3/uL} Normal 0.1-1.0 [facility] Work Phone: Monocytes/100 WBC (Bld) 8 % Normal 4-13 [facility] Work Phone: Comment on above: PATIENT NOT FASTINGP ERFORMED BY: GUS [facility]6370 [facility] [id number] Information: [id number] Monocytes/100 WBC Auto (Bld) 8 % Normal 4-13 [facility] Work Phone: Neutrophils (Bld) [#/Vol] 7.9 {x10E3/uL} Abnormal 1.8-7.8 [facility] Work Phone: Comment on above: PATIENT NOT FASTINGP ERFORMED BY: GUS [facility]6370 [facility] [id number] Information: [id number] Neutrophils (Bld) [#/Vol] 7.9 10*3/uL Abnormal 1.8-7.8 [facility] Work Phone: Neutrophils Auto #/vol (Bld) 7.9 {x10E3/uL} Abnormal 1.8-7.8 [facility] Work Phone: Neutrophils/100 WBC (Bld) 80 % Abnormal 40-74 [facility] Work Phone: Comment on above: PATIENT NOT FASTINGP ERFORMED BY: GUS [facility] Xyyxiw7681 [facility] [id number] Information: [id number] Neutrophils/100 WBC Auto (Bld) 80 % Abnormal 40-74 [facility] Work Phone: Platelets (Bld) [#/Vol] 365 {x10E3/uL} Normal 140-415 [facility] Work Phone: Comment on above: PATIENT NOT FASTINGP ERFORMED BY: GUS [facility] Eekkmu5917 [facility] [id number] Information: [id number] Platelets (Bld) [#/Vol] 365 10*3/uL Normal 140-415 [facility] Work Phone: Platelets Auto #/vol (Bld) 365 {x10E3/uL} Normal 140-415 [facility] Work Phone: RBC (Bld) [#/Vol] 4.34 {x10E6/uL} Normal 4.14-5.80 [facility] Internal Medicine Work Phone: Comment on above: PATIENT NOT FASTINGP ERFORMED BY: GUS [place] 5037870 [facility] [id number] Information: [id number] RBC (Bld) [#/Vol] 4.34 10*6/uL Normal 4.14-5.80 [facility] Internal Medicine Work Phone: RBC Auto #/vol (Bld) 4.34 {x10E6/uL} Normal 4.14-5.80 [facility] Work Phone: WBC (Bld) [#/Vol] 10.0 {x10E3/uL} Normal 4.0-10.5 [facility] Internal Medicine Work Phone: Comment on above: PATIENT NOT FASTINGP ERFORMED BY: GUS LabCosinai MoXhmnwp[address] GymtrackECU Health [id number] Information: [id number] WBC (Bld) [#/Vol] 10.0 10*3/uL Normal 4.0-10.5 [facility] Internal Medicine Work Phone: WBC Auto #/vol (Bld) 10.0 {x10E3/uL} Normal 4.0-10.5 [facility] Work Phone: CUWOrdered By: System Manage r on 06-24-2012 CUW See Note Normal [facility] Work Phone: Comment on above: GRAM STAIN RARE WHIT E BLOOD CELLS NO ORGANISMS SEEN Possible skin contam ination, further Identification andsensitivity will be performed only by physician's request. NO STAPH AUREUS ISOLATED AMOUNT GROWTH VERY RARE ORGANISM 1: COAG NEGATIVE STAPH METABOLIC PANEL, COMPREHENSI VE ([id number])Ordered By: Machine Lay Out Worker on 06-24-2012 Albumin mass conc 4.3 g/dL Normal 3.5-4.8 [facility] Work Phone: Comment on above: PATIENT NOT FASTINGP ERFORMED BY: GUS LabCosinai MoAdzgho7[address] NeighborMDAtrium Health [facility] [id number] Albumin/Globulin mass ratio 1.5 {ratio} Normal 1.1-2.5 [facility] Work Phone: Comment on above: PATIENT NOT FASTINGP ERFORMED BY: GUS [facility] Jlrjyk3849 [address] NeighborMDAtrium Health [facility] [id number] ALP [Catalytic activity/Vol] 113 U/L Normal 25-160 [facility] Work Phone: ALP enzyme act/vol 113 [iU]/L Normal 25-160 [facility] Internal Medicine Work Phone: Comment on above: PATIENT NOT FASTINGP ERFORMED BY: GUS [facility] Mapuzg5329 [address] RoadDublin [place] [id number] ALT [Catalytic activity/Vol] 42 U/L Normal 0-44 [facility] Work Phone: ALT enzyme act/vol 42 [iU]/L Normal 0-44 [facility] Internal Medicine Work Phone: Comment on above: Please note refere nce interval change PATIENT NOT FASTINGP ERFORMED BY: GUS [facility] Notatr8074 [address] RoadDublin [place] [id number] AST [Catalytic activity/Vol] 33 U/L Normal 0-40 [facility] Internal Medicine Work Phone: AST enzyme act/vol 33 [iU]/L Normal 0-40 [facility] Internal Medicine Work Phone: Comment on above: PATIENT NOT FASTINGP ERFORMED BY: GUS [facility] Xnmdmj4046 [address] RoadDublin [place] [id number] Bilirubin mass conc 1.3 mg/dL Abnormal 0.0-1.2 [facility] Internal Medicine Work Phone: Comment on above: PATIENT NOT FASTINGP ERFORMED BY: CB [facility] Tryrqo5342 [address] RoadDublin [place] [id number] Calcium mass conc 10.0 mg/dL Normal 8.6-10.2 [facility] Internal Medicine Work Phone: Comment on above: PATIENT NOT FASTINGP ERFORMED BY: CB [facility] Qhuxie4758 [address] RoadDublin [place] [id number] Chloride molar conc 100 mmol/L Normal 97-108 Compr ensive Internal Medicine Work Phone: Comment on above: PATIENT NOT FASTINGP ERFORMED BY: GUS [facility] Efgatd9279 [address] RoadDublin [place] [id number] CO2 molar conc 22 mmol/L Normal 20-32 Comprehens y[facility]ileth Internal Medicine Work Phone: Comment on above: PATIENT NOT FASTINGP ERFORMED BY: GUS [facility] Gxkfja[address] [facility] [id number] Creatinine mass conc 0.73 mg/dL Abnormal 0.76-1.27 Comp rehensive Internal Medicine Work Phone: Comment on above: PATIENT NOT FASTINGP ERFORMED BY: CB [facility] [address]fqzs[address] [facility] [id number] GFR/1.73 sq M predicted among blacks CKD-EPI vol rate/area (S/P/Bld) 106 mL/min/1.73 Normal Comprehensiv e Internal Medicine Work Phone: Comment on above: PATIENT NOT FASTINGP ERFORMED BY: CB [facility] Bcmrgz[address] [facility] [id number] GFR/1.73 sq M predicted among non-blacks CKD-EPI vol rate/area (S/P/Bld) 92 mL/min/1.73 Normal [facility] Work Phone: Comment on above: PATIENT NOT FASTINGP ERFORMED BY: CB [facility] Ajpguh1960 [facility]vaSt[facility] [id number] Globulin (S) [Mass/Vol] 2.9 g/dL Normal 1.5-4.5 [facility] Work Phone: Comment on above: PATIENT NOT FASTINGP ERFORMED BY: CB [facility] Zesssh[address] [facility] [id number] Globulin Calculated mass conc (S) 2.9 g/dL Normal 1.5-4.5 [facility] Work Phone: Glucose mass conc 105 mg/dL Abnormal 65-99 Compreh ensive Internal Medicine Work Phone: Comment on above: PATIENT NOT FASTINGP ERFORMED BY: CB [facility] Arzrrf[address] [facility] [place] [id number] Potassium molar conc 4.6 mmol/L Normal 3.5-5.2 Comp rehensive Internal Medicine Work Phone: Comment on above: PATIENT NOT FASTINGP ERFORMED BY: GUS [facility] Ubghmz7420 [facility] [id number] Protein mass conc 7.2 g/dL Normal 6.0-8.5 Compreh ensive Internal Medicine Work Phone: Comment on above: PATIENT NOT FASTINGP ERFORMED BY: GUS [facility] Hzhirb[address] [facility] [id number] Sodium molar conc 137 mmol/L Normal 134-144 Compreh ensive Internal Medicine Work Phone: Comment on above: PATIENT NOT FASTINGP ERFORMED BY: GUS [facility] Iqhkdl[address] [facility] [id number] Urea nitrogen mass conc 10 mg/dL Normal 8-27 [facility] Work Phone: Comment on above: PATIENT NOT FASTINGP ERFORMED BY: GUS [facility] Bnjzcz7771 [facility] [id number] Urea nitrogen/Creatinine mass ratio 14 mg/mg Normal 10-22 [facility] Work Phone: Comment on above: PATIENT NOT FASTINGP ERFORMED BY: GUS [facility] Iqkorn3852 [facility] [id number] SED RATE ERYTHROCYTE ([id number]) Ordered By: Machine Lay Out Worker on 06-24-2012 ESR Velocity (Bld) 6 mm/h Normal 0-30 Compre hensive Internal Medicine Work Phone: Comment on above: PATIENT NOT FASTINGP ERFORMED BY: [facility] Jhuqep4673 [facility] [id number] Lab Report: LIVERon 12-20-19 12 Bilirubin.direct mass conc 0.21 mg/dL Normal 0.00-0.30 [facility] Work Phone: THYROID IMAGE W/UPTAKE MULTO rdered By: Machine Lay Out Worker on 10-03-2011 THYROID IMAGE W/UPTAKE MULT See Note Normal [facility] Work Phone: Comment on above: CLINICAL: Male, 71 y ears old. Thyroid nodule. THYROID IMAGING STUDY TECHNIQUE:The patient was administered a 299 uCi I-123 capsule by mouth. COMPARISON:None. FINDINGS:The 6-hour I-123 radioactive iodine thyroidal uptake was calculated to be9.0% (normal 6 to 20%). The 24-hour I-123 radioactive iodine thyroidal uptake was calculated tobe21.4% (normal 5 to 35%). The I-123 thyroid scan demonstrates homogeneous radiopharmaceuticalconcentration throughout both lobes of a U-shaped thyroid gland. Thereareno colloidal parenchymal nodules noted in either lobe of the thyroidgland. IMPRESSION:Normal 6- and 24-hour I-123 radioactive iodine thyroidal uptakes. To consult with a radiologist regarding this report, please call our [id number] line @ Dictated on 10/03/11 0951 by Home GUNN,Darynranscribed on 10/04/11 1523 by ITS IMPORTSign by Juan Manuel Bhat MD on 10/04/11 1524 Sign by: Juan Manuel Bhat MD T3, FREE (TRIDOTHYRONINE) (4 [id number])Ordered By: Machine Lay Out Worker on 09-21-2011 T3 free mass conc 4.3 pg/mL Normal 2.0-4.4 Compreh ensive Internal Medicine Work Phone: Comment on above: PATIENT NOT FASTINGP ERFORMED BY: [employer]6370 [facility] [id number] T4, FREE (THYROXINE) ([id number]) Ordered By: Machine Lay Out Worker on 09-21-2011 T4 free mass conc 1.27 ng/dL Normal 0.82-1.77 [facility] Work Phone: Comment on above: PATIENT NOT FASTINGP ERFORMED BY: [id number] [facility] [id number] Information: [id number] TSH ([id number])Ordered By: Clandestine Developmente m Network Solutions Architect on 09-21-2011 Thyrotropin Qn 1.670 {uIU/mL} Normal 0.450-4.50 0 [facility] Work Phone: Comment on above: PATIENT NOT FASTINGP ERFORMED BY: [employer] [id number] [facility] [id number] THYROIDOrdered By: Callie sosa on 09-14-2011 THYROID See Note Normal [facility] Work Phone: Comment on above: PROCEDURE: THYROID U LTRASOUND REASON FOR EXAM: Male, 71 years old. Thyroid nodule. TECHNIQUE: Ultrasound evaluation of the thyroid was performed withreal-time ultrasonography and static grayscale imaging. COMPARISON: None. FINDINGS: RIGHT LOBE: Normal size of the right lobe of the thyroid. The rightlobeof the thyroid gland measures 3.6-cm by 1.4. Cm. There is a homogeneousechotexture with normal echogenicity. There are multiple nodulesscatteredthroughout the right lobe. The largest measures 1.1 cm x 0.9 cm x 0.6cm.This is hypoechoic and solid. LEFT LOBE: Normal size of the left lobe of the thyroid. The left lobeofthe thyroid gland measures 4.2 cm x 1.6 cm by 1.5. cm. There is ahomogeneous echotexture with normal echogenicity. There are at least 5nodules within the left lobe. The largest measures 1.1 cm x 1 cm x 0.9cm.It is hypoechoic and solid. ISTHMUS: The isthmus measures .23 cm. IMPRESSION:At least 5 subcentimeter nodules in both lobes of the thyroid gland.Correlation with nuclear medicine uptake and thyroid scan is suggested. To consult with a radiologist regarding this report, please call our [id number] line @ Dictated on 09/14/11 0928 by Scar Bhat MDscribed on 09/15/11 1033 by ITS IMPORTSign by Juan Manuel Bhat MD on 09/15/11 1034 Sign by: Juan Manuel Bhat MD HgA1C , Office ([id number])Ordere d By: Naima Fofana on 08-30-2011 Hemoglobin A1c/Hemoglobin.total mass fraction (Bld) 6.2 % Normal 4.6 - 7.1 [facility] Work Phone: CBCD,SMEAR DIFFOrdered By: Beata cardosotem Network Solutions Architect on 08-23-2011 Eosinophils/100 WBC Auto (Bld) 5 % Normal 0-5 [facility] Internal Medicine Work Phone: Erythrocyte distribution width Auto Ratio (RBC) 13.1 % Normal 11.6-14.6 [facility] Internal Medicine Work Phone: Hematocrit Auto Volume Fraction (Bld) 40.0 % Normal 40-54 [facility] Work Phone: Hemoglobin mass conc (Bld) 14.1 g/dL Normal 14.0-18.0 [facility] Internal Medicine Work Phone: MCH Auto Entitic mass (RBC) 32.3 pg Abnormal 27.0-32.0 [facility] Internal Medicine Work Phone: MCHC Auto mass conc (RBC) 35.4 g/dL Normal 32-36 [facility] Internal Medicine Work Phone: MCV Auto Entitic volume (RBC) 91.3 fL Normal 80-94 [facility] Internal Medicine Work Phone: Neutrophils Auto #/vol (Bld) 2.5 3/uL Normal 2.0-7.7 [facility] Internal Medicine Work Phone: Platelets Auto #/vol (Bld) 223 10*3/uL Normal 150-450 [facility] Internal Medicine Work Phone: RBC Auto #/vol (Bld) 4.38 {M/mm3} Abnormal 4.6-6.2 [facility] Work Phone: WBC Auto #/vol (Bld) 5.0 10*3/uL Normal 4.4-11.0 [facility] Phone: CBCD,SMEAR DIFF 100 1 Normal [facility] Internal Medicine Work Phone: CBCD,SMEAR DIFF 41 % Abnormal 47-70 [facility] Internal Medicine Work Phone: CBCD,SMEAR DIFF 2 % Normal 0-5 [facility] Internal Medicine Work Phone: CBCD,SMEAR DIFF 34 % Normal 19-41 [facility] Internal Medicine Work Phone: CBCD,SMEAR DIFF 18 % Abnormal 0-10 [facility] Internal Medicine Work Phone: COMP METABOLICOrdered By: Hunter stem Network Solutions Architect on 08-23-2011 Albumin mass conc 4.1 g/dL Normal 3.4-5.0 [facility] Internal Medicine Work Phone: Albumin/Globulin mass ratio 1.2 {RATIO} Normal 0.9-2.4 [facility] Internal Medicine Work Phone: ALP enzyme act/vol 64 U/L Normal 50-136 [facility] Internal Medicine Work Phone: ALT enzyme act/vol 30 U/L Normal 12-78 [facility] Internal Medicine Work Phone: AST enzyme act/vol 26 U/L Normal 15-37 [facility] Internal Medicine Work Phone: Bilirubin mass conc 1.30 mg/dL Abnormal 0.00-1.00 Compr [facility] Internal Medicine Work Phone: Calcium mass conc 8.9 mg/dL Normal 8.5-10.1 [facility] Work Phone: Chloride molar conc 104 mmol/L Normal 98-107 [facility] Internal Medicine Work Phone: CO2 molar conc 30.0 mmol/L Normal 21.0-32.0 [facility] Internal Medicine Work Phone: Creatinine mass conc 0.6 mg/dL Abnormal 0.8-1.3 Comp [facility] Internal Medicine Work Phone: Globulin Calculated mass conc (S) 3.5 g/dL Normal 2.7-4.2 [facility] Internal Medicine Work Phone: Glucose mass conc 113 mg/dL Abnormal 70-110 [facility] Work Phone: Comment on above: Fasting Glucose resu lt from 110 to <126 mg/dL suggests IMPAIRED HOMEOSTASIS per A.D.A. criteria. Potassium molar conc 4.3 mmol/L Normal 3.5-5.1 [facility] Internal Medicine Work Phone: Protein mass conc 7.6 g/dL Normal 6.4-8.2 [facility] Work Phone: Sodium molar conc 141 mmol/L Normal 136-145 [facility] Work Phone: Urea nitrogen mass conc 9 mg/dL Normal 7-18 [facility] Work Phone: Urea nitrogen/Creatinine mass ratio 15.0 {RATIO} Normal 10-20 [facility] Work Phone: COMPLETE UAOrdered By: Nellie oliveira Network Solutions Architect on 08-23-2011 COMPLETE UA YELLOW Normal [facility] Work Phone: COMPLETE UA SeeNote Normal 0-5 [facility] Work Phone: Comment on above: Result: NEGATIVE Result: TRACE-INTACT Result: ADEQUATE PROCEDURE: X-RAY [facility] ST REASON FOR EXAM: Male, 71 years old. Shortness of breath TECHNIQUE: PA and lateral views of the chest. COMPARISON: None. FINDINGS: The lungs are hyper expanded, with flattening of the hemidiaphragms.Thereare chronic interstitial lung changes of the lung bases. There is acalcified granuloma right lower lobe. There is no demonstrated pleuralabnormality. Normal heart and pericardium. Sternal cerclage wires and vascular clipsare present from a prior sternotomy and coronary artery bypass graftprocedure (CABG). Normal mediastinum and susie. Normal visualized pulmonary arteries.Normalvisualized aortic arch and descending thoracic aorta. Normal visualized thoracic spine. Normal visualized ribs, clavicles, andshoulders. There is no demonstrated abnormality of the visualized soft tissuestructures of the upper abdomen. IMPRESSION:1. No acute cardiopulmonary process. 2. Hyperinflation compatible with chronic obstructive airway disease. 3. CABG. To consult with a radiologist regarding this report, please call our [id number] line @ Dictated on 08/23/11 0752 by FITO ALVARADO MD, BTranscribed on 08/23/11 1454 by ITS IMPORTSign by FITO ALVARADO MD on 08/23/11 1455 Sign by: FITO ALVARADO MD Result: NORM C+C Result: 0-5 SEEN COMPLETE UA CLEAR Normal [facility] Work Phone: COMPLETE UA 0 SEEN Normal [facility] Work Phone: COMPLETE UA 1.015 1 Normal 1.002-1.03 0 [facility] Work Phone: COMPLETE UA 0.2 EU/dl Normal 0.2 - 1.0 [facility] Work Phone: COMPLETE UA 7.5 1 Normal 5.0-8.0 [facility] Work Phone: LIPIDOrdered By: System Lyndsey mclaughlin on 08-23-2011 Cholesterol in HDL mass conc 35 mg/dL Abnormal [facility] Work Phone: Comment on above: Reference Range HDL <40 mg/dL Low HDL Cholesterol HDL >or= 60 mg/dL High HDL Cholesterol Cholesterol in LDL mass conc 89 mg/dL Normal 0-130 [facility] Work Phone: Cholesterol in VLDL mass conc 32 mg/dL Normal 5-40 [facility] Work Phone: Cholesterol mass conc 156 mg/dL Normal Com prehensive [facility] Medicine Work Phone: Comment on above: <200 mg/dL Desirable 200-240 mg/dL Borderline >240 mg/dL High Risk Triglyceride mass conc 161 mg/dL Normal [facility] Work Phone: Comment on above: Serum Triglycerides Reference Interval Normal <150 mg/dL Borderline high 150 - 199 mg/dL High 200 - 499 mg/dL Very High > or = 500 mg/dL Lab Reporton 08-23-2011 Anion gap molar conc 7 mmol/L [facility] Work Phone: eosinophils as percent of blood leukocytes, manual count 5 % Invalid Interpretation Code [facility] Work Phone: Lymphocytes/100 leukocytes 34 % Invalid Interpretation Code [facility] Work Phone: Lymphocytes/100 WBC (Bld) 34 % [facility] Work Phone: Monocytes/100 leukocytes 18 % Invalid Interpretation Code [facility] Work Phone: Monocytes/100 WBC (Bld) 18 % [facility] Work Phone: neutrophils, band form as percent of blood leukocytes, manual count 41 % Invalid Interpretation Code [facility] Work Phone: Anion gap 7 mmol/L Normal 5-15 [facility] Work Phone: PSA, SCREENOrdered By: Clandestine Developmentj carlos [employer] Network Solutions Architect on 08-23-2011 Prostate specific Ag mass conc 1.8 ng/mL Normal 0.0-4.0 [facility] Work Phone: Office Visiton 06-20-2011 cardiac risk group C Invalid Interpretation Code [facility] Work Phone: cholesterol, target level 200 mg/dL Invalid Interpretation Code [employer] Work Phone: General cardiovascular disease 10Y risk [#] [place].D'Agostino N/A Invalid Interpretation Code [facility] Work Phone: HDL cholesterol, serum, target level 40 mg/dL Invalid Interpretation Code [employer] Work Phone: LDL target level 100 mg/dL Invalid Interpretation Code [employer] Work Phone: triglyceride, target level 150 mg/dL Invalid Interpretation Code [facility] [facility] Work Phone: LIPIDOrdered By: Callie mclaughlin on 10-28-2009 Cholesterol in HDL mass conc 32 mg/dL Abnormal [facility] Work Phone: Comment on above: Reference RangeHDL < 40 mg/dL Low HDL CholesterolHDL >or= 60 mg/dL High HDL Cholesterol Cholesterol in LDL mass conc 72 mg/dL Normal 0-130 [facility] Work Phone: Cholesterol in VLDL mass conc 22 mg/dL Normal 5-40 [facility] Work Phone: Cholesterol mass conc 126 mg/dL Normal Com prehensive [facility] Work Phone: Comment on above: <200 mg/dL Desirable 200-240 mg/dL Borderline>240 mg/dL High Risk Triglyceride mass conc 111 mg/dL Normal [facility] Work Phone: Comment on above: Serum Triglycerides Reference IntervalNormal <150 mg/dLBorderline high 150 - 199 mg/dLHigh 200 - 499 mg/dLVery High > or = 500 mg/dL LIVEROrdered By: Callie mclaughlin on 10-28-2009 Albumin mass conc 3.7 g/dL Normal 3.4-5.0 [facility] Work Phone: ALP enzyme act/vol 77 U/L Normal 50-136 Compre hens[facility] Work Phone: ALT enzyme act/vol 33 U/L Normal 12-78 [facility]pre hens[facility] Work Phone: AST enzyme act/vol 31 U/L Normal 15-37 [facility] Work Phone: Bilirubin mass conc 1.40 mg/dL Abnormal 0.00-1.00 Compr ehensive [facility] Medicine Work Phone: Protein mass conc 7.0 g/dL Normal 6.4-8.2 [facility] Work Phone: LIVER 0.34 mg/dL Abnormal 0.00-0.30 [facility] Work Phone: LIPIDOrdered By: Callie mclaughlin on 04-29-2009 Cholesterol in HDL mass conc 31 mg/dL Abnormal [facility] Work Phone: Comment on above: Reference Range HDL <40 mg/dL Low HDL Cholesterol HDL >or= 60 mg/dL High HDL Cholesterol Cholesterol in LDL mass conc 74 mg/dL Normal 0-130 [facility] Work Phone: Cholesterol in VLDL mass conc 26 mg/dL Normal 5-40 [facility] Work Phone: Cholesterol mass conc 131 mg/dL Normal Com [facility]hens[facility] Work Phone: Comment on above: <200 mg/dL Desirable 200-240 mg/dL Borderline >240 mg/dL High Risk Triglyceride mass conc 128 mg/dL Normal [facility] Work Phone: Comment on above: Serum Triglycerides Reference Interval Normal <150 mg/dL Borderline high 150 - 199 mg/dL High 200 - 499 mg/dL Very High > or = 500 mg/dL LIVEROrdered By: Callie mclaughlin on 04-29-2009 Albumin mass conc 3.9 g/dL Normal 3.4-5.0 [facility] Work Phone: ALP enzyme act/vol 80 U/L Normal 50-136 Compre hensive [facility] Work Phone: ALT enzyme act/vol 27 U/L Abnormal 30-65 [facility] Work Phone: AST enzyme act/vol 21 U/L Normal 15-37 [facility] Work Phone: Bilirubin mass conc 1.20 mg/dL Abnormal 0.00-1.00 Compr ehensive [facility] Medicine Work Phone: Protein mass conc 7.3 g/dL Normal 6.4-8.2 [facility] Work Phone: LIVER 0.33 mg/dL Abnormal 0.00-0.30 [facility] Work Phone: LIPIDOrdered By: Callie Lyndsey mclaughlin on 04-26-2007 Cholesterol in HDL mass conc 30 mg/dL Abnormal [facility] Work Phone: Comment on above: Reference Range HDL <40 mg/dL Low HDL Cholesterol HDL >or= 60 mg/dL High HDL Cholesterol Cholesterol in LDL mass conc 74 mg/dL Normal 0-130 [facility] Work Phone: Cholesterol in VLDL mass conc 25 mg/dL Normal 5-40 [facility] Work Phone: Cholesterol mass conc 129 mg/dL Normal Com prehensive [facility] Work Phone: Comment on above: <200 mg/dL Desirable 200-240 mg/dL Borderline >240 mg/dL High Risk Triglyceride mass conc 125 mg/dL Normal [facility] Work Phone: Comment on above: Serum Triglycerides Reference Interval Normal <150 mg/dL Borderline high 150 - 199 mg/dL High 200 - 499 mg/dL Very High > or = 500 mg/dL LIVEROrdered By: Callie mclaughlin on 04-26-2007 Albumin mass conc 4.0 g/dL Normal 3.4-5.0 [facility] Work Phone: ALP enzyme act/vol 103 U/L Normal 50-136 [facility] Internal Medicine Work Phone: ALT enzyme act/vol 40 [iU]/L Normal 30-65 [facility] Internal [facility] Work Phone: AST enzyme act/vol 32 U/L Normal 15-37 [facility] Work Phone: Bilirubin mass conc 0.91 mg/dL Normal 0.00-1.00 Compr [facility] Work Phone: Protein mass conc 7.3 g/dL Normal 6.4-8.2 [facility] Work Phone: LIVER 0.13 mg/dL Normal 0.00-0.30 [facility] Internal [facility] Work Phone: COMP METABOLICOrdered By: Sy stem Network Solutions Architect on 01-04-2007 Albumin mass conc 4.1 g/dL Normal 3.4-5.0 [facility] Work Phone: Albumin/Globulin mass ratio 1.3 {RATIO} Normal 0.9-2.4 [facility] Internal Medicine Work Phone: ALP enzyme act/vol 98 U/L Normal 50-136 [facility] Internal Medicine Work Phone: ALT enzyme act/vol 38 [iU]/L Normal 30-65 [facility] Work Phone: Anion gap 3 molar conc 4 mmol/L Abnormal 5-15 [facility] Internal [facility] Work Phone: AST enzyme act/vol 26 U/L Normal 15-37 [facility] Work Phone: Bilirubin mass conc 1.52 mg/dL Abnormal 0.00-1.00 [facility] Work Phone: Calcium mass conc 8.9 mg/dL Normal 8.5-10.1 [facility] Work Phone: Chloride molar conc 106 mmol/L Normal 98-107 [facility] Internal Medicine Work Phone: CO2 molar conc 28.5 mmol/L Normal 22.0-29.0 Comprehen sive Internal Medicine Work Phone: Creatinine mass conc 0.8 mg/dL Normal 0.8-1.3 Comp rehensive Internal Medicine Work Phone: Globulin Calculated mass conc (S) 3.1 g/dL Normal 2.3-3.5 [facility] Work Phone: Glucose mass conc 107 mg/dL Normal 70-110 [facility] Work Phone: Potassium molar conc 4.4 mmol/L Normal 3.5-5.1 Comp rehensive Internal Medicine Work Phone: Protein mass conc 7.2 g/dL Normal 6.4-8.2 [facility] Work Phone: Sodium molar conc 138 mmol/L Normal 136-145 [facility] Work Phone: Urea nitrogen mass conc 12 mg/dL Normal 7-18 [facility] Work Phone: Urea nitrogen/Creatinine mass ratio 15.0 {RATIO} Normal 10-20 [facility] Work Phone: D BILIOrdered By: System Man ager on 01-04-2007 D BILI 0.20 mg/dL Normal 0.00-0.30 [facility] Work Phone: LIPIDOrdered By: System Lyndsey arnoldo on 01-04-2007 Cholesterol in HDL mass conc 30 mg/dL Abnormal [facility] Work Phone: Comment on above: Reference Range HDL <40 mg/dL Low HDL Cholesterol HDL >or= 60 mg/dL High HDL Cholesterol Cholesterol in LDL mass conc 82 mg/dL Normal 0-130 [facility] Work Phone: Cholesterol in VLDL mass conc 14 mg/dL Normal 5-40 [facility] Work Phone: Cholesterol mass conc 126 mg/dL Normal Com prehensive [facility] Work Phone: Comment on above: <200 mg/dL Desirable 200-240 mg/dL Borderline >240 mg/dL High Risk Triglyceride mass conc 72 mg/dL Normal [facility] Work Phone: Comment on above: Serum Triglycerides Reference Interval Normal <150 mg/dL Borderline high 150 - 199 mg/dL High 200 - 499 mg/dL Very High > or = 500 mg/dL LIPIDOrdered By: BuzzElementa [employer] on 09-28-2006 Cholesterol in HDL mass conc 31 mg/dL Abnormal [facility] Work Phone: Comment on above: Reference Range HDL <40 mg/dL Low HDL Cholesterol HDL >or= 60 mg/dL High HDL Cholesterol Cholesterol in LDL mass conc 81 mg/dL Normal 0-130 [facility] Work Phone: Cholesterol in VLDL mass conc 23 mg/dL Normal 5-40 [facility] Work Phone: Cholesterol mass conc 135 mg/dL Normal Com [facility]hensive [facility] Work Phone: Comment on above: <200 mg/dL Desirable 200-240 mg/dL Borderline >240 mg/dL High Risk Triglyceride mass conc 114 mg/dL Normal [facility] Internal Medicine Work Phone: Comment on above: Serum Triglycerides Reference Interval Normal <150 mg/dL Borderline high 150 - 199 mg/dL High 200 - 499 mg/dL Very High > or = 500 mg/dL LIVEROrdered By: [employer] on 09-28-2006 Albumin mass conc 3.9 g/dL Normal 3.4-5.0 [facility]pre[facility] ens[facility] Internal [facility] Work Phone: ALP enzyme act/vol 114 U/L Normal 50-136 [facility] Internal Medicine Work Phone: ALT enzyme act/vol 52 [iU]/L Normal 30-65 Compre [facility] Internal Medicine Work Phone: AST enzyme act/vol 30 U/L Normal 15-37 [facility] Internal Medicine Work Phone: Bilirubin mass conc 1.21 mg/dL Abnormal 0.00-1.00 Compr ensive Internal Medicine Work Phone: Protein mass conc 7.3 g/dL Normal 6.4-8.2 [facility] Work Phone: LIVER 0.20 mg/dL Normal 0.00-0.30 [facility] Work Phone: CBCD,SMEAR DIFFOrdered By: Beata cardosotem Network Solutions Architect on 08-17-2006 Eosinophils/100 WBC Auto (Bld) 2 % Normal 0-5 [facility] Internal Medicine Work Phone: Erythrocyte distribution width Auto Ratio (RBC) 12.5 % Normal 11.6-14.6 [facility] Internal Medicine Work Phone: Hematocrit Auto Volume Fraction (Bld) 41.7 % Normal 40-54 [facility] Internal [facility] Work Phone: Hemoglobin mass conc (Bld) 14.5 g/dL Normal 14.0-18.0 [facility] Internal Medicine Work Phone: MCH Auto Entitic mass (RBC) 33.1 pg Abnormal 27.0-32.0 [facility] Internal Medicine Work Phone: MCHC Auto mass conc (RBC) 34.8 g/dL Normal 32-36 [facility] Internal Medicine Work Phone: MCV Auto Entitic volume (RBC) 95.3 fL Abnormal 80-94 [facility] Internal Medicine Work Phone: Platelets Auto #/vol (Bld) 230 10*3/uL Normal 150-450 [facility] Internal Medicine Work Phone: RBC Auto #/vol (Bld) 4.38 {M/mm3} Abnormal 4.6-6.2 [facility] Internal [facility] Work Phone: WBC Auto #/vol (Bld) 4.3 10*3/uL Abnormal 4.4-11.0 [facility] Internal Medicine Work Phone: CBCD,SMEAR DIFF 1 % Normal 0-5 [facility] Internal Medicine Work Phone: CBCD,SMEAR DIFF 30 % Normal 19-41 [facility] Internal [facility] Work Phone: CBCD,SMEAR DIFF 57 % Normal 47-70 [facility] Internal Medicine Work Phone: CBCD,SMEAR DIFF 100 1 Normal [facility] Work Phone: CBCD,SMEAR DIFF 2 % Abnormal 0-1 [facility] Internal [facility] Work Phone: CBCD,SMEAR DIFF SeeNote Normal [facility] Internal Medicine Work Phone: Comment on above: Result: ADEQUATE Result: NORM C&C CBCD,SMEAR DIFF 8 % Normal 0-10 [facility] Internal Medicine Work Phone: BMPOrdered By: System Manage r on 07-13-2006 Anion gap 3 molar conc 8 mmol/L Normal 5-15 [facility] Work Phone: Calcium mass conc 9.3 mg/dL Normal 8.5-10.1 [facility] Work Phone: Chloride molar conc 106 mmol/L Normal 98-107 [facility] Work Phone: CO2 molar conc 29.2 mmol/L Abnormal 22.0-29.0 [facility] Internal [facility] Work Phone: Creatinine mass conc 0.7 mg/dL Abnormal 0.8-1.3 [facility]: Glucose mass conc 107 mg/dL Normal 70-110 [facility] Work Phone: Potassium molar conc 4.3 mmol/L Normal 3.5-5.1 [facility]: Sodium molar conc 143 mmol/L Normal 136-145 [facility] Work Phone: Urea nitrogen mass conc 12 mg/dL Normal 7-18 [facility] Internal Medicine Work Phone: Urea nitrogen/Creatinine mass ratio 17.1 {RATIO} Normal 10-20 [facility] Internal Medicine Work Phone: ANTIBODY SCREENOrdered By: S 4FRONT PARTNERStem Network Solutions Architect on 06-25-2006 ANTIBODY SCREEN Negative Normal [facility] Internal Medicine Work Phone: CBCD,SMEAR DIFFOrdered By: S 4FRONT PARTNERSteFwdHealth Network Solutions Architect on 06-25-2006 Eosinophils/100 WBC Auto (Bld) 5 % Normal 0-5 [facility] Internal Medicine Work Phone: Erythrocyte distribution width Auto Ratio (RBC) 14.9 % Abnormal 11.6-14.6 [facility] Internal [facility] Work Phone: Hematocrit Auto Volume Fraction (Bld) 34.4 % Abnormal 40-54 [facility] Internal [facility] Work Phone: Hemoglobin mass conc (Bld) 12.1 g/dL Abnormal 14.0-18.0 [facility] Internal [facility] Work Phone: MCH Auto Entitic mass (RBC) 35.8 pg Abnormal 27.0-32.0 [facility] Internal [facility] Work Phone: MCHC Auto mass conc (RBC) 35.0 g/dL Normal 32-36 [facility] Internal Medicine Work Phone: MCV Auto Entitic volume (RBC) 102.3 fL Abnormal 80-94 [facility] Internal [facility] Work Phone: Platelets Auto #/vol (Bld) 308 10*3/uL Normal 150-450 [facility] Internal [facility] Work Phone: RBC Auto #/vol (Bld) 3.36 {M/mm3} Abnormal 4.6-6.2 [facility] Internal Medicine Work Phone: WBC Auto #/vol (Bld) 3.8 10*3/uL Abnormal 4.4-11.0 [facility] Phone: CBCD,SMEAR DIFF 100 1 Normal [facility] Work Phone: CBCD,SMEAR DIFF 4 % Normal 0-10 [facility] Internal Medicine Work Phone: CBCD,SMEAR DIFF SeeNote Normal [facility] Internal Medicine Work Phone: Comment on above: Result: ADEQUATE Result: NORM C&C CBCD,SMEAR DIFF 29 % Normal 19-41 [facility] Internal Medicine Work Phone: CBCD,SMEAR DIFF 62 % Normal 47-70 [facility] Internal Medicine Work Phone: DIRECT MIGUEL=Ordered By: Sy stem Network [employer] Architect on 06-25-2006 DIRECT MIGUEL= NEG w/COMPLEMENT Normal Comp [facility] Internal Medicine Work Phone: HAPTOGLOB [id number] By: Sy stem Network [employer] Architect on 06-25-2006 HAPTOGLOB 1628 63 mg/dL Normal 34-200 [facility] Internal Medicine Work Phone: Comment on above: Performed At: [facility] [place], [place] [id number] I BILIOrdered By: System Man ager on 06-25-2006 I BILI 0.91 mg/dL Normal 0.00-1.00 [facility] Work Phone: LDHOrdered By: System [employer] r on 06-25-2006 LDH enzyme act/vol 153 U/L Normal 100-190 [facility] Work Phone: LIVEROrdered By: System Lyndsey arnoldo on 06-25-2006 Albumin mass conc 3.5 g/dL Normal 3.4-5.0 Compreh ensive Internal Medicine Work Phone: ALP enzyme act/vol 106 U/L Normal 50-136 [facility] Work Phone: ALT enzyme act/vol 51 [iU]/L Normal 30-65 [facility] Internal Medicine Work Phone: AST enzyme act/vol 35 U/L Normal 15-37 [facility] Internal Medicine Work Phone: Bilirubin mass conc 1.18 mg/dL Abnormal 0.00-1.00 Compr [facility] Internal Medicine Work Phone: Protein mass conc 7.0 g/dL Normal 6.4-8.2 Compreh ensive Internal Medicine Work Phone: LIVER 0.27 mg/dL Normal 0.00-0.30 [facility] Work Phone: RETICOrdered By: System Lyndsey arnoldo on 06-25-2006 RETIC 3.75 % Abnormal 0.5-1.5 [facility] Work Phone: CBCOrdered By: System [employer] r on 06-08-2006 Erythrocyte distribution width Auto Ratio (RBC) 22.1 % Abnormal 11.6-14.6 [facility] Work Phone: Hematocrit Auto Volume Fraction (Bld) 31.2 % Abnormal 40-54 [facility] Work Phone: Hemoglobin mass conc (Bld) 11.1 g/dL Abnormal 14.0-18.0 [facility] Internal Medicine Work Phone: MCH Auto Entitic mass (RBC) 36.2 pg Abnormal 27.0-32.0 [facility] Internal Medicine Work Phone: MCHC Auto mass conc (RBC) 35.7 g/dL Normal 32-36 [facility] Internal Medicine Work Phone: MCV Auto Entitic volume (RBC) 101.3 fL Abnormal 80-94 [facility] Internal Medicine Work Phone: Platelets Auto #/vol (Bld) 312 10*3/uL Normal 150-450 [facility] Internal Medicine Work Phone: RBC Auto #/vol (Bld) 3.08 {M/mm3} Abnormal 4.6-6.2 [facility] Work Phone: WBC Auto #/vol (Bld) 3.2 10*3/uL Abnormal 4.4-11.0 [facility] Work Phone: COMP METABOLICOrdered By: Sy stem Network [employer] Architect on 06-08-2006 Albumin mass conc 3.4 g/dL Normal 3.4-5.0 Compre[facility] Internal Medicine Work Phone: Albumin/Globulin mass ratio 1.0 {RATIO} Normal 0.9-2.4 [facility] Internal Medicine Work Phone: ALP enzyme act/vol 76 U/L Normal 50-136 [facility] Internal Medicine Work Phone: ALT enzyme act/vol 36 [iU]/L Normal 30-65 [facility] Work Phone: Anion gap 3 molar conc 8 mmol/L Normal 5-15 [facility] Internal Medicine Work Phone: AST enzyme act/vol 33 U/L Normal 15-37 [facility] Internal Medicine Work Phone: Bilirubin mass conc 2.52 mg/dL Abnormal 0.00-1.00 [facility] Work Phone: Calcium mass conc 9.1 mg/dL Normal 8.5-10.1 [facility] Work Phone: Chloride molar conc 105 mmol/L Normal 98-107 [facility] Internal Medicine Work Phone: CO2 molar conc 27.7 mmol/L Normal 22.0-29.0 [facility] Work Phone: Creatinine mass conc 0.7 mg/dL Abnormal 0.8-1.3 [facility] Work Phone: Globulin Calculated mass conc (S) 3.5 g/dL Normal 2.3-3.5 [facility] Work Phone: Glucose mass conc 115 mg/dL Abnormal 70-110 [facility] Work Phone: Comment on above: Fasting Glucose resu lt from 110 to <126 mg/dL suggests IMPAIRED HOMEOSTASIS per A.D.A. criteria. Potassium molar conc 3.6 mmol/L Normal 3.5-5.1 [facility] Work Phone: Protein mass conc 6.9 g/dL Normal 6.4-8.2 [facility] Work Phone: Sodium molar conc 141 mmol/L Normal 136-145 [facility] Work Phone: Urea nitrogen mass conc 5 mg/dL Abnormal 7-18 [facility] Work Phone: Urea nitrogen/Creatinine mass ratio 7.1 {RATIO} Abnormal 10-20 [facility] Internal Medicine Work Phone: ESROrdered By: System Manage r on 06-08-2006 ESR Velocity (Bld) 25 mm/h Abnormal 0-20 [facility] Internal Medicine Work Phone: B12/FOLATES 810Ordered By: S ystem Network Solutions Architect on 06-01-2006 B12/FOLATES 810 > 24.0 Normal [facility] Internal Medicine Work Phone: Comment on above: Indeterminate: 3.4 - 5.4 Deficient: <3.4 B12/FOLATES 810 378 pg/mL Normal 211-911 [facility] Internal Medicine Work Phone: CBCD,SMEAR DIFFOrdered By: S ystem Network [employer] Architect on 06-01-2006 Eosinophils/100 WBC Auto (Bld) 3 % Normal 0-5 [facility] Internal Medicine Work Phone: Erythrocyte distribution width Auto Ratio (RBC) 21.9 % Abnormal 11.6-14.6 [facility] Internal Medicine Work Phone: Hematocrit Auto Volume Fraction (Bld) 30.5 % Abnormal 40-54 [facility] Internal [facility] Work Phone: Hemoglobin mass conc (Bld) 10.8 g/dL Abnormal 14.0-18.0 [facility] Internal Medicine Work Phone: MCH Auto Entitic mass (RBC) 35.3 pg Abnormal 27.0-32.0 [facility] Internal [facility] Work Phone: MCHC Auto mass conc (RBC) 35.5 g/dL Normal 32-36 [facility] Internal [facility] Work Phone: MCV Auto Entitic volume (RBC) 99.4 fL Abnormal 80-94 [facility] Internal [facility] Work Phone: Platelets Auto #/vol (Bld) 303 10*3/uL Normal 150-450 [facility] Internal [facility] Work Phone: RBC Auto #/vol (Bld) 3.07 {M/mm3} Abnormal 4.6-6.2 Co [facility] Internal [facility] Work Phone: WBC Auto #/vol (Bld) 3.6 10*3/uL Abnormal 4.4-11.0 [facility] Internal [facility] Work Phone: CBCD,SMEAR DIFF 63 % Normal 47-70 [facility] Internal [facility] Work Phone: CBCD,SMEAR DIFF N CHROM Normal [facility] Internal [facility] Work Phone: CBCD,SMEAR DIFF 1+ Normal [facility] Internal [facility] Work Phone: CBCD,SMEAR DIFF 9 % Normal 0-10 [facility] Internal [facility] Work Phone: CBCD,SMEAR DIFF 24 % Normal 19-41 [facility] Internal [facility] Work Phone: CBCD,SMEAR DIFF [address] [facility] Work Phone: CBCD,SMEAR DIFF 1 % Normal 0-5 [facility] Internal Medicine Work Phone: COMP METABOLICOrdered By: Hunter stem Network Solutions Architect on 06-01-2006 Albumin mass conc 3.4 g/dL Normal 3.4-5.0 [facility] Internal Medicine Work Phone: Albumin/Globulin mass ratio 1.0 {RATIO} Normal 0.9-2.4 [facility] Internal Medicine Work Phone: ALP enzyme act/vol 71 U/L Normal 50-136 [facility] Internal Medicine Work Phone: ALT enzyme act/vol 32 [iU]/L Normal 30-65 [facility] Internal Medicine Work Phone: Anion gap 3 molar conc 7 mmol/L Normal 5-15 [facility] Internal Medicine Work Phone: AST enzyme act/vol 28 U/L Normal 15-37 [facility] Internal Medicine Work Phone: Bilirubin mass conc 2.21 mg/dL Abnormal 0.00-1.00 [facility] Internal Medicine Work Phone: Calcium mass conc 9.0 mg/dL Normal 8.5-10.1 [facility] Internal Medicine Work Phone: Chloride molar conc 107 mmol/L Normal 98-107 [facility] Internal Medicine Work Phone: CO2 molar conc 27.0 mmol/L Normal 22.0-29.0 [facility] Internal Medicine Work Phone: Creatinine mass conc 0.7 mg/dL Abnormal 0.8-1.3 [facility] Internal Medicine Work Phone: Globulin Calculated mass conc (S) 3.3 g/dL Normal 2.3-3.5 [facility] Internal Medicine Work Phone: Glucose mass conc 103 mg/dL Normal 70-110 [facility] Internal Medicine Work Phone: Potassium molar conc 3.4 mmol/L Abnormal 3.5-5.1 [facility] Internal Medicine Work Phone: Protein mass conc 6.7 g/dL Normal 6.4-8.2 [facility] Internal Medicine Work Phone: Sodium molar conc 141 mmol/L Normal 136-145 [facility] Internal Medicine Work Phone: Urea nitrogen mass conc 7 mg/dL Normal 7-18 [facility] Work Phone: Urea nitrogen/Creatinine mass ratio 10.0 {RATIO} Normal 10-20 [facility] Work Phone: COMPLETE UAOrdered By: Nellie oliveira Network Solutions Architect on 06-01-2006 COMPLETE UA 0 SEEN Normal [facility] Work Phone: COMPLETE UA SeeNote Normal [facility] Work Phone: Comment on above: Result: NEGATIVE Result: 0-5 SEEN Result: ADEQUATE COMPLETE UA 7.5 1 Normal 5.0-8.0 [facility] Work Phone: COMPLETE UA 1.015 1 Normal 1.002-1.03 0 [facility] Work Phone: COMPLETE UA CLEAR Normal [facility] Work Phone: COMPLETE UA YELLOW Normal [facility] Work Phone: COMPLETE UA 0.2 EU/dl Normal 0.2 - 1.0 [facility] Work Phone: ESROrdered By: System Manage r on 06-01-2006 ESR Velocity (Bld) 25 mm/h Abnormal 0-20 Compre [facility]ive Internal Medicine Work Phone: FERRITINOrdered By: Callie portillo on 06-01-2006 Ferritin mass conc 371 ng/mL Abnormal 3-244 Compre [facility]ive Internal Medicine Work Phone: HAPTOGLOB 1628Ordered By: Hunter stem Network Solutions Architect on 06-01-2006 HAPTOGLOB 1628 < 10 Abnormal 34-200 [facility] Internal Medicine Work Phone: Comment on above: Performed At: [facility] orAn[facility] HospitalNczgyn[address] [place], [place] [id number] At: E=[id number] [place], [place] [id number] HOMOCYST [id number] By: Beata ystem Network Solutions Architect on 06-01-2006 HOMOCYST 202416 9.0 umol/L Normal 5.0-12.0 [facility] Internal Medicine Work Phone: IRON, SERUMOrdered By: Nellie oliveira Network [employer] Architect on 06-01-2006 IRON, SERUM 106 ug/dL Normal 35-150 [facility] Internal Medicine Work Phone: LDHOrdered By: System Manage r on 06-01-2006 LDH enzyme act/vol 183 U/L Normal 100-190 [facility] Internal Medicine Work Phone: LIPOPROT [id number] By: Beata ystem Network [employer] Architect on 06-01-2006 LIPOPROT [id number] 2 mg/dL Normal 0-30 [facility] Internal Medicine Work Phone: Comment on above: Desirable: <20 Borde rline high risk: 20 - 30 High risk: 31 - 50 Very high risk: >50 . Note: Values >30 may indicate independent risk factor for CHD. Significance of high Lp(a) in non-white populations must be evaluated with caution. MICROALBOrdered By: Callie portillo on 06-01-2006 MICROALB 52.9 {mg/g_CRE} Abnormal [facility] Internal Medicine Work Phone: MICROALB 54.1 mg/L Normal [facility] Internal Medicine Work Phone: MICROALB 102.3 mg/dL Normal [facility] Internal Medicine Work Phone: PFLIPOrdered By: Callie mclaughlin on 06-01-2006 Cholesterol in HDL mass conc 27 mg/dL Abnormal [facility] Internal Medicine Work Phone: Comment on above: Reference Range HDL <40 mg/dL Low HDL Cholesterol HDL >or= 60 mg/dL High HDL Cholesterol Cholesterol in LDL mass conc 92 mg/dL Normal 0-130 [facility] Work Phone: Cholesterol in VLDL mass conc 20 mg/dL Normal 5-40 [facility] Internal Medicine Work Phone: Cholesterol mass conc 139 mg/dL Normal Com prehensive Internal Medicine Work Phone: Comment on above: <200 mg/dL Desirable 200-240 mg/dL Borderline >240 mg/dL High Risk Triglyceride mass conc 98 mg/dL Normal [facility] Work Phone: Comment on above: Serum Triglycerides Reference Interval Normal <150 mg/dL Borderline high 150 - 199 mg/dL High 200 - 499 mg/dL Very High > or = 500 mg/dL PSA,TOT SCREENOrdered By: Sy stem [employer] Architect on 06-01-2006 Prostate specific Ag mass conc 2.83 ng/mL Normal 0.00-4.00 [facility] Work Phone: Comment on above: This test was perfor med using the TPSA method for [employer] chemistry system.Values obtained with different assay methods cannot be usedinterchangably.When changing PSA assays in the course of monitoring apatient, additionaly sequential testing should be carriedout to confirm baseline values. TIBCOrdered By: System Manag er on 06-01-2006 Iron binding capacity mass conc 259 ug/dL Normal 250-450 [facility] Work Phone: TSHOrdered By: System Manage r on 06-01-2006 Thyrotropin Qn 1.16 {uIU/mL} Normal 0.34-4.82 Compreh ensive Internal Medicine Work Phone: Vital Signs Date Time Vital Sign Value Performing Clinician Facility 03-25-2025 11:51-0400 Body height 180.[address] Laura Rodriguez DO Work Phone: [facility] 03-25-2025 11:51-0400 Body mass index (BMI) [Ratio] 25.4 kg/m2 Dr. Laura Rodriguez DO Work Phone: [facility] 03-25-2025 11:51-0400 Body weight 82.[address] Laura Rodriguez DO Work Phone: [facility] 03-25-2025 11:51-0400 Diastolic blood pressure 69 mm[Hg] Dr. Laura Rodriguez DO Work Phone: [facility] 03-25-2025 11:51-0400 Heart rate 73 /min Dr. Laura Rodriguez DO Work Phone: [facility] 03-25-2025 11:51-0400 Respiratory rate 16 /min Dr. Laura Rodriguez DO Work Phone: [facility] 03-25-2025 11:51-0400 Systolic blood pressure 125 mm[Hg] Dr. Laura Rodriguez DO Work Phone: [facility] 02-19-2025 10:04-0400 Body mass index (BMI) [Ratio] 27.6 kg/m2 Dr. Laura Rodriguez DO Work Phone: [facility] 02-19-2025 10:04-0400 Body weight 89.[address] Laura Rodriguez DO Work Phone: [facility] 02-19-2025 10:04-0400 Diastolic blood pressure 72 mm[Hg] Dr. Laura Rodriguez DO Work Phone: [facility] 02-19-2025 10:04-0400 Heart rate 81 /min Dr. Laura Rodriguez DO Work Phone: [facility] 02-19-2025 10:04-0400 Respiratory rate 18 /min Dr. Laura Rodriguez DO Work Phone: [facility] 02-19-2025 10:04-0400 Systolic blood pressure 136 mm[Hg] Dr. Laura Rodriguez DO Work Phone: [facility] 09-19-2024 14:25-0500 Body height 180.[address] Laura Rodriguez DO Work Phone: [facility] 09-19-2024 14:25-0500 Body mass index (BMI) [Ratio] 24.7 kg/m2 Dr. Laura Rodriguez DO Work Phone: [facility] 09-19-2024 14:25-0500 Body weight 80.[address] Laura Rodriguez DO Work Phone: [facility] 09-19-2024 14:25-0500 Diastolic blood pressure 55 mm[Hg] Dr. Laura Rodriguez DO Work Phone: [facility] 09-19-2024 14:25-0500 Heart rate 62 /min Dr. Laura Rodriguez DO Work Phone: [facility] 09-19-2024 14:25-0500 Respiratory rate 18 /min Dr. Laura Rodriguez DO Work Phone: [facility] 09-19-2024 14:25-0500 Systolic blood pressure 106 mm[Hg] Dr. Laura Rodriguez DO Work Phone: [facility] 06-18-2023 12:38-0500 Body temperature 97.8 [degF] Dr. Laura Rodriguez Work Phone: [facility] 06-18-2023 12:38-0500 Diastolic blood pressure 62 mm[Hg] Dr. Laura Rodriguez Work Phone: [facility] 06-18-2023 12:38-0500 Heart rate 80 /min Dr. Laura Rodriguez Work Phone: [facility] 06-18-2023 12:38-0500 Respiratory rate 14 /min Dr. Laura Rodriguez Work Phone: [facility] 06-18-2023 12:38-0500 SaO2% (BldA) [Mass fraction] 96 % Dr. Laura Rodriguez Work Phone: [facility] 06-18-2023 12:38-0500 Systolic blood pressure 132 mm[Hg] Dr. Laura Rodriguez Work Phone: [facility] 05-24-2023 13:57-0400 Body height 182.[address] Laura Rodriguez Work Phone: [facility] 05-24-2023 13:57-0400 Body mass index (BMI) [Ratio] 25.7 kg/m2 Dr. Laura Rodriguez Work Phone: [facility] 05-24-2023 13:57-0400 Body weight 86.[address] Laura Rodriguez Work Phone: [facility] 05-24-2023 13:57-0400 Diastolic blood pressure 58 mm[Hg] Dr. Laura Rodriguez Work Phone: [facility] 05-24-2023 13:57-0400 Heart rate 77 /min Dr. Laura Rodriguez Work Phone: [facility] 05-24-2023 13:57-0400 Respiratory rate 16 /min Dr. Laura Rodriguez Work Phone: [facility] 05-24-2023 13:57-0400 Systolic blood pressure 121 mm[Hg] Dr. Laura Rodriguez Work Phone: [facility] 06-13-2021 14:26-0500 Body height 175.26 cm [facility]; [facility] Work Phone: 06-13-2021 14:26-0500 Body mass index (BMI) [Ratio] 28.06 kg/m2 [facility]; [facility] Work Phone: 06-13-2021 14:26-0500 Body surface area Derived from formula 2.02 m2 Rosie Gil [facility]; [facility] Work Phone: 06-13-2021 14:26-0500 Body temperature 97.1 [degF] [facility]; [facility] Work Phone: 06-13-2021 14:26-0500 Body weight 86.18 kg [facility]; [facility] Work Phone: 06-13-2021 14:26-0500 Diastolic blood pressure 68 mm[Hg] Rosie [facility]; [facility] Work Phone: 06-13-2021 14:26-0500 Heart rate 82 /[facility] Work Phone: 06-13-2021 14:26-0500 Respiratory rate 16 /min Rosie Gil [facility]; [facility] Work Phone: 06-13-2021 14:26-0500 SaO2% (BldA) [Mass fraction] 97 % Rosie Gil [facility]; [facility] Work Phone: 06-13-2021 14:26-0500 Systolic blood pressure 115 mm[Hg] Rosie Gil [facility]; [facility] Work Phone: 07-15-2020 08:31-0500 BMI (Body Mass Index) 28.06 kg/m2 Shaina Jules [facility]; [facility] Work Phone: 07-15-2020 08:31-0500 Body weight 86.18 kg Shainajanina Jules [facility]; [facility] Work Phone: 07-15-2020 08:31-0500 BSA (Body Surface Area) 2.02 m2 Shainajanina Jules [facility]; [facility] Work Phone: 07-15-2020 08:31-0500 Height 175.26 cm Shainajanina Jules [facility] Internal Medicine; [facility] Work Phone: 07-01-2020 12:40-0500 BMI (Body Mass Index) 28.06 kg/m2 Aliza Slarb [facility] Internal Medicine Work Phone: Comment on above: pt reported 07-01-2020 12:40-0500 Body Temperature 97.2 [degF] Aliza Slarb [employer]IST [facility] Work Phone: Comment on above: pt reported 07-01-2020 12:40-0500 Body weight 86.18 kg Aliza Slarb [employer] AC[employer]IS[employer] SPECIALIST [facility] Work Phone: Comment on above: pt reported 07-01-2020 12:40-0500 BP Diastolic 80 mm[Hg] Aliza Slarb [employer] SPECIALIST [facility] Work Phone: Comment on above: Patient Position: Sitting; Cuff Location : Left Arm; Cuff Size: Standard pt reported 07-01-2020 12:40-0500 BP Systolic 110 mm[Hg] Aliza Mcgregor [facility] Internal Medicine Work Phone: Comment on above: Patient Position: Sitting; Cuff Location : Left Arm; Cuff Size: Standard pt reported 07-01-2020 12:40-0500 BSA (Body Surface Area) 2.02 m2 Aliza Mcgregor [facility] Internal Medicine Work Phone: Comment on above: pt reported 07-01-2020 12:40-0500 Height 175.26 cm Aliza Mcgregor [facility] Internal Medicine Work Phone: Comment on above: pt reported 09-04-2019 14:15-0500 Body height 175.26 cm Melissa Gee [facility] Internal Medicine Work Phone: 09-04-2019 14:15-0500 Body mass index (BMI) [Ratio] 27.98 kg/m2 Melissa Gee [facility] Internal Medicine Work Phone: 09-04-2019 14:15-0500 Body surface area Derived from formula 2.02 m2 Melissa Gee [facility] Internal Medicine Work Phone: 09-04-2019 14:15-0500 Body temperature 97.2 [degF] Melissa Gee [facility] Internal Medicine Work Phone: Comment on above: Method: Temporal 09-04-2019 14:15-0500 Body weight 85.96 kg Melissa Gee [facility] Internal Medicine Work Phone: 09-04-2019 14:15-0500 Diastolic blood pressure 50 mm[Hg] Melissa Gee [facility] Internal Medicine Work Phone: Comment on above: Patient Position: Sitting; Cuff Location : Left Arm; Cuff Size: Standard 09-04-2019 14:15-0500 Heart rate 88 /min Melissa Gee [facility] Internal Medicine Work Phone: Comment on above: Pattern: Regular 09-04-2019 14:15-0500 Pulse Oximetry 93 % Laura Rodriguez [facility] Internal Medicine Work Phone: Comment on above: Room air 09-04-2019 14:15-0500 Respiratory rate 18 /min Melissa Gee GROUND WORKER [facility] Work Phone: Comment on above: Pattern: Unlabored 09-04-2019 14:15-0500 SaO2% (BldA) [Mass fraction] 93 % Melissa Gee [facility] Work Phone: 09-04-2019 14:15-0500 Systolic blood pressure 126 mm[Hg] Melissa Gee [facility] Work Phone: Comment on above: Patient Position: Sitting; Cuff Location : Left Arm; Cuff Size: Standard 11-29-2017 10:28-0400 BMI (Body Mass Index) 27.98 kg/m2 Mya Braga RN [facility] Work Phone: 11-29-2017 10:28-0400 Body weight 85.96 kg Mya Braga RN [facility] Work Phone: 11-29-2017 10:28-0400 BP Diastolic 68 mm[Hg] Mya Braga RN [facility] Work Phone: Comment on above: Patient Position: Sitting; Cuff Location : Left Arm; Cuff Size: Large 11-29-2017 10:28-0400 BP Systolic 130 mm[Hg] Mya Braga RN [facility] Work Phone: Comment on above: Patient Position: Sitting; Cuff Location : Left Arm; Cuff Size: Large 11-29-2017 [id number] BSA (Body Surface Area) 2.02 m2 Mya Braga RN [facility] Work Phone: 11-29-2017 10:28-0400 Height 175.26 cm Mya Braga RN [facility] Work Phone: 11-29-2017 10:28-0400 Pulse (Heart Rate) 63 /min Mya Braga RN [facility] Work Phone: Comment on above: Pattern: Regular 11-29-2017 10:28-0400 Pulse Oximetry 94 % Laura Shiva [facility] Work Phone: Comment on above: Room air 11-29-2017 10:28-0400 Respiratory Rate 18 /min Mya Braga RN [facility] Work Phone: Comment on above: Pattern: Unlabored 11-29-2017 10:28-0400 SaO2% (BldA) [Mass fraction] 94 % Mya Braga RN [facility] Work Phone: 11-29-2017 10:28-0400 Weight 85.96 kg Laura Rodriguez [facility] Work Phone: 09-11-2017 09:31-0500 BMI (Body Mass Index) 28.21 kg/m2 Mya Braga RN [facility] Work Phone: Comment on above: b/l hearing aids Dr. Taveras and had a gl aucoma test done 09-11-2017 09:31-0500 Body weight 86.64 kg Mya Braga RN [facility] Work Phone: Comment on above: b/l hearing aids Dr. Taveras and had a gl aucoma test done 09-11-2017 09:31-0500 BP Diastolic 76 mm[Hg] Mya Braga RN [facility] Work Phone: Comment on above: Patient Position: Sitting; Cuff Location : Left Arm; Cuff Size: Large b/l hearing aids Dr. Taveras and had a glaucoma test done 09-11-2017 09:31-0500 BP Systolic 138 mm[Hg] Mya Braga RN [facility] Work Phone: Comment on above: Patient Position: Sitting; Cuff Location : Left Arm; Cuff Size: Large b/l hearing aids Dr. Taveras and had a glaucoma test done 09-11-2017 09:31-0500 BSA (Body Surface Area) 2.03 m2 Mya Braga RN [facility] Work Phone: Comment on above: b/l hearing aids Dr. Taveras and had a gl aucoma test done 09-11-2017 09:31-0500 Height 175.26 cm Mya Braga RN [facility] Work Phone: Comment on above: b/l hearing aids Dr. Taveras and had a gl aucoma test done 09-11-2017 09:31-0500 Pulse (Heart Rate) 55 /min Mya Braga RN [facility] Work Phone: Comment on above: Pattern: Regular b/l hearing aids Dr. Taveras and had a glaucoma test done 09-11-2017 09:31-0500 Pulse Oximetry 97 % Laura Rodriguez [facility] Work Phone: Comment on above: Room air b/l hearing aids Dr. Taveras and had a glaucoma test done 09-11-2017 09:31-0500 Respiratory Rate 18 /min Mya Braga RN [facility] Work Phone: Comment on above: Pattern: Unlabored b/l hearing aids Dr. Taveras and had a glaucoma test done 09-11-2017 09:31-0500 SaO2% (BldA) [Mass fraction] 97 % Mya Braga RN [facility] Work Phone: 09-11-2017 09:31-0500 Weight 86.64 kg Laura Crawfordon [facility] Work Phone: 08-28-2017 10:10-0500 BMI (Body Mass Index) 28.85 kg/m2 Mya Braga RN [facility] Work Phone: Comment on above: 132/62 2nd bp 08-28-2017 10:10-0500 Body weight 88.62 kg Mya Braga RN [facility] Work Phone: Comment on above: 132/62 2nd bp 08-28-2017 10:10-0500 BP Diastolic 78 mm[Hg] Mya Braga RN [facility] Work Phone: Comment on above: Patient Position: Sitting; Cuff Location : Left Arm; Cuff Size: Large 132/62 2nd bp 08-28-2017 10:10-0500 BP Systolic 142 mm[Hg] Mya Braga RN [facility] Work Phone: Comment on above: Patient Position: Sitting; Cuff Location : Left Arm; Cuff Size: Large 132/62 2nd bp 08-28-2017 10:10-0500 BSA (Body Surface Area) 2.05 m2 Mya Braga RN [facility] Work Phone: Comment on above: 132/62 2nd bp 08-28-2017 10:10-0500 Height 175.26 cm Mya Braga RN [facility] Work Phone: Comment on above: 132/62 2nd bp 08-28-2017 10:10-0500 Pulse (Heart Rate) 60 /min Mya Braga RN [facility] Work Phone: Comment on above: Pattern: Regular 132/62 2nd bp 08-28-2017 10:10-0500 Pulse Oximetry 97 % Laura Rodriguez [facility] Work Phone: Comment on above: Room air 132/62 2nd bp 08-28-2017 10:10-0500 Respiratory Rate 18 /min Mya Braga RN [facility] Work Phone: Comment on above: Pattern: Unlabored 132/62 2nd bp 08-28-2017 10:10-0500 SaO2% (BldA) [Mass fraction] 97 % Mya Braga RN [facility] Work Phone: 08-28-2017 10:10-0500 Weight 88.62 kg Laura Rodriguez [facility] Work Phone: 01-25-2017 11:45-0400 BMI (Body Mass Index) 26.95 kg/m2 Mya Braga RN [facility] Work Phone: 01-25-2017 11:45-0400 Body weight 82.78 kg Mya Braga RN [facility] Work Phone: 01-25-2017 11:45-0400 BP Diastolic 62 mm[Hg] Mya Braga RN [facility] Work Phone: Comment on above: Patient Position: Sitting; Cuff Location : Left Arm; Cuff Size: Standard 01-25-2017 11:45-0400 BP Systolic 120 mm[Hg] Mya Braga RN [facility] Work Phone: Comment on above: Patient Position: Sitting; Cuff Location : Left Arm; Cuff Size: Standard 01-25-2017 11:45-0400 BSA (Body Surface Area) 1.99 m2 Mya Braga RN [facility] Work Phone: 01-25-2017 11:45-0400 Height 175.26 cm Mya Braga RN [facility] Work Phone: 01-25-2017 11:45-0400 Pulse (Heart Rate) 90 /min Mya Braga RN [facility] Work Phone: Comment on above: Pattern: Regular 01-25-2017 11:45-0400 Pulse Oximetry 96 % Laura Rodriguez [facility] Work Phone: Comment on above: Room air 01-25-2017 11:45-0400 Respiratory Rate 18 /min Mya Braga RN [facility] Work Phone: Comment on above: Pattern: Unlabored 01-25-2017 11:45-0400 SaO2% (BldA) [Mass fraction] 96 % Mya Braga RN [facility] Work Phone: 01-25-2017 11:45-0400 Weight 82.78 kg Laura Rodriguez [facility] Work Phone: 01-25-2017 09:27-0400 BMI (Body Mass Index) 24.95 kg/m2 [facility] Work Phone: 01-25-2017 09:27-0400 BP Diastolic 58 mm[Hg] [facility] Work Phone: 01-25-2017 09:27-0400 BP Systolic 126 mm[Hg] [facility] Work Phone: 01-25-2017 09:27-0400 Height 182.88 cm [facility] Work Phone: 01-25-2017 09:27-0400 Pulse (Heart Rate) 60 /min [facility] Work Phone: 01-25-2017 09:27-0400 Respiratory Rate 18 /min [facility] Work Phone: 01-25-2017 09:27-0400 Weight 83.46 kg [facility] Work Phone: 08-01-2016 10:27-0500 BMI (Body Mass Index) 24.64 kg/m2 [facility] Work Phone: 08-01-2016 10:27-0500 BP Diastolic 58 mm[Hg] Kika [facility] Work Phone: 08-01-2016 10:27-0500 BP Systolic 110 mm[Hg] [facility] Work Phone: 08-01-2016 10:27-0500 BSA (Body Surface Area) 2.05 m2 [facility] Work Phone: 08-01-2016 10:27-0500 Pulse (Heart Rate) 60 /min [facility] Work Phone: 08-01-2016 10:27-0500 Respiratory Rate 18 /min [facility] Work Phone: 08-01-2016 10:27-0500 Weight 82.42 kg [facility] Work Phone: 07-04-2016 11:09-0500 BMI (Body Mass Index) 26.58 kg/m2 Rosie Gil [facility] Work Phone: 07-04-2016 11:09-0500 Body Temperature 97.8 [degF] Rosie Gil [facility] Work Phone: Comment on above: Method: Temporal 07-04-2016 11:09-0500 Body weight 81.65 kg Rosie Gil [facility] Work Phone: 07-04-2016 11:09-0500 BP Diastolic 60 mm[Hg] Rosie Gil [facility] Work Phone: Comment on above: Patient Position: Sitting; Cuff Location : Left Arm; Cuff Size: Standard 07-04-2016 11:09-0500 BP Systolic 130 mm[Hg] Rosie Gil [facility] Work Phone: Comment on above: Patient Position: Sitting; Cuff Location : Left Arm; Cuff Size: Standard 07-04-2016 11:09-0500 BSA (Body Surface Area) 1.98 m2 Rosie Gil [facility] Work Phone: 07-04-2016 11:09-0500 Height 175.26 cm Rosie Gil [facility] Work Phone: 07-04-2016 11:09-0500 Pulse (Heart Rate) 68 /min Rosie Gil CMA [facility] Work Phone: Comment on above: Pattern: Regular 07-04-2016 11:09-0500 Pulse Oximetry 98 % Laura Rodriguez [facility] Work Phone: Comment on above: Room air 07-04-2016 11:09-0500 Respiratory Rate 16 /min Rosie Gil [facility] Work Phone: Comment on above: Pattern: Unlabored 07-04-2016 11:09-0500 SaO2% (BldA) [Mass fraction] 98 % Rosie Gil [facility] Work Phone: 07-04-2016 11:09-0500 Weight 81.65 kg Laura Rodriguez [facility] Work Phone: 12-22-2015 14:43-0400 BMI (Body Mass Index) 26.58 kg/m2 Rosa A Fast DO Work Phone: [facility] Work Phone: 12-22-2015 14:43-0400 Body Temperature 96 [degF] Rosa A Fast DO Work Phone: [facility] Work Phone: Comment on above: Method: Oral 12-22-2015 14:43-0400 Body weight 81.65 kg Rosa A Fast DO Work Phone: [facility] Work Phone: 12-22-2015 14:43-0400 BP Diastolic 58 mm[Hg] Rosa A Fast DO Work Phone: [facility] Work Phone: Comment on above: Patient Position: Sitting; Cuff Location : Left Arm; Cuff Size: Standard 12-22-2015 14:43-0400 BP Systolic 118 mm[Hg] Rosa A Fast DO Work Phone: [facility] Work Phone: Comment on above: Patient Position: Sitting; Cuff Location : Left Arm; Cuff Size: Standard 12-22-2015 14:43-0400 BSA (Body Surface Area) 1.98 m2 Rosa A Fast DO Work Phone: [facility] Work Phone: 12-22-2015 14:43-0400 Height 175.26 cm Rosa A Fast DO Work Phone: [facility] Work Phone: 12-22-2015 14:43-0400 Pulse Oximetry 95 % Laura Rodriguez [facility] Work Phone: Comment on above: Room air 12-22-2015 14:43-0400 Respiratory Rate 18 /min Rosa A Fast DO Work Phone: [facility] Work Phone: Comment on above: Pattern: Unlabored 12-22-2015 14:43-0400 SaO2% (BldA) [Mass fraction] 95 % Rosa A Fast DO Work Phone: [facility] Work Phone: 12-22-2015 14:43-0400 Weight 81.65 kg Laura Rodriguez [facility] Work Phone: 09-28-2015 11:05-0500 BMI (Body Mass Index) 28.5 kg/m2 Yany Weber [facility] Work Phone: 09-28-2015 11:05-0500 Body Temperature 97.9 [degF] Yany Weber [facility] Work Phone: Comment on above: Method: Temporal 09-28-2015 11:05-0500 Body weight 87.54 kg Yany Weber [facility] Work Phone: 09-28-2015 11:05-0500 BP Diastolic 64 mm[Hg] Yany Weber [facility] Work Phone: Comment on above: Patient Position: Sitting; Cuff Location : Left Arm; Cuff Size: Standard 09-28-2015 11:05-0500 BP Systolic 124 mm[Hg] Yany Weber [facility] Work Phone: Comment on above: Patient Position: Sitting; Cuff Location : Left Arm; Cuff Size: Standard 09-28-2015 11:05-0500 BSA (Body Surface Area) 2.03 m2 Yany Vincentvicky [facility] Work Phone: 09-28-2015 11:05-0500 Height 175.26 cm Yany Joyayoni [facility] Work Phone: 09-28-2015 11:05-0500 Pulse (Heart Rate) 52 /min [facility]aamrkvicky [facility] Work Phone: Comment on above: Pattern: Regular 09-28-2015 11:05-0500 Pulse Oximetry 96 % Laura Rodriguez [facility] Work Phone: Comment on above: Room air 09-28-2015 11:05-0500 Respiratory Rate 16 /min Yany Joyayoni [facility] Work Phone: Comment on above: Pattern: Unlabored 09-28-2015 11:05-0500 SaO2% (BldA) [Mass fraction] 96 % Yany Joyayoni [facility] Work Phone: 09-28-2015 11:05-0500 Weight 87.54 kg Laura Rodriguez [facility] Work Phone: 08-19-2015 10:30-0500 Heart rate 51 /min [facility] Work Phone: 05-14-2015 10:07-0400 BMI (Body Mass Index) 28.94 kg/m2 Yany Joyayoni [facility] Work Phone: 05-14-2015 10:07-0400 Body Temperature 98.2 [degF] Yany Joyayoni [facility] Work Phone: Comment on above: Method: Temporal 05-14-2015 10:07-0400 Body weight 88.91 kg Yanyabhijit Vincentvicky [facility] Work Phone: 05-14-2015 10:07-0400 BP Diastolic 58 mm[Hg] Yany Weber [facility] Work Phone: Comment on above: Patient Position: Sitting; Cuff Location : Left Arm; Cuff Size: Standard 05-14-2015 10:07-0400 BP Systolic 136 mm[Hg] Yany Weber [facility] Work Phone: Comment on above: Patient Position: Sitting; Cuff Location : Left Arm; Cuff Size: Standard 05-14-2015 10:07-0400 BSA (Body Surface Area) 2.05 m2 Yany Gus [facility] Work Phone: 05-14-2015 10:07-0400 Height 175.26 cm Yany Gus [facility] Work Phone: 05-14-2015 10:07-0400 Pulse (Heart Rate) 68 /min Yany Gus [facility] Work Phone: Comment on above: Pattern: Regular 05-14-2015 10:07-0400 Respiratory Rate 16 /min Yany Gus [facility] Work Phone: Comment on above: Pattern: Unlabored 05-14-2015 10:07-0400 Weight 88.91 kg Laura Rodriguez [facility] Work Phone: 02-18-2015 09:57-0400 BP Diastolic 64 mm[Hg] Kika Esc[facility]ante [facility] Work Phone: 02-18-2015 09:57-0400 BP Systolic 132 mm[Hg] Kika Esc[facility]ante [facility] Work Phone: 02-18-2015 09:57-0400 Pulse (Heart Rate) 60 /min Kika Smith [facility] Work Phone: 12-25-2014 10:15-0400 BMI (Body Mass Index) 29.24 kg/m2 Yany Weber [facility] Work Phone: 12-25-2014 10:15-0400 Body Temperature 97.5 [degF] Yany Weber [facility] Work Phone: Comment on above: Method: Oral 12-25-2014 10:15-0400 Body weight 89.81 kg Yany Weber [facility] Work Phone: 12-25-2014 10:15-0400 BP Diastolic 64 mm[Hg] Yany Weber [facility] Work Phone: Comment on above: Patient Position: Sitting; Cuff Location : Left Arm; Cuff Size: Large 12-25-2014 10:15-0400 BP Systolic 120 mm[Hg] Yany Weber [facility] Work Phone: Comment on above: Patient Position: Sitting; Cuff Location : Left Arm; Cuff Size: Large 12-25-2014 10:15-0400 BSA (Body Surface Area) 2.06 m2 Yany Joyayoni [facility] Work Phone: 12-25-2014 10:15-0400 Height 175.26 cm Yany Weber [facility] Work Phone: 12-25-2014 10:15-0400 Pulse (Heart Rate) 54 /min Yany Weber [facility] Work Phone: Comment on above: Pattern: Regular 12-25-2014 10:15-0400 Respiratory Rate 16 /min Yany Joyayoni [facility] Work Phone: Comment on above: Pattern: Unlabored 12-25-2014 10:15-0400 Weight 89.81 kg Laura Rodriguez [facility] Work Phone: 07-20-2014 13:59-0500 BMI (Body Mass Index) 29.09 kg/m2 Yany Joyayoni [facility] Work Phone: 07-20-2014 13:59-0500 Body Temperature 98.1 [degF] Yany Gus [facility] Work Phone: 07-20-2014 13:59-0500 Body weight 89.36 kg Yany Weber [facility] Work Phone: 07-20-2014 13:59-0500 BP Diastolic 56 mm[Hg] Yany Weber [facility] Work Phone: Comment on above: Patient Position: Sitting; Cuff Location : Left Arm; Cuff Size: Large 07-20-2014 13:59-0500 BP Systolic 134 mm[Hg] Yany Weber [facility] Work Phone: Comment on above: Patient Position: Sitting; Cuff Location : Left Arm; Cuff Size: Large 07-20-2014 13:59-0500 BSA (Body Surface Area) 2.05 m2 Yany Weber [facility] Work Phone: 07-20-2014 13:59-0500 Height 175.26 cm Yany Weber [facility] Work Phone: 07-20-2014 13:59-0500 Pulse (Heart Rate) 56 /min Yany Weber [facility] Work Phone: Comment on above: Pattern: Regular 07-20-2014 13:59-0500 Respiratory Rate 16 /min Yany Weber [facility] Work Phone: Comment on above: Pattern: Unlabored 07-20-2014 13:59-0500 Weight 89.36 kg Laura Rodriguez [facility] Work Phone: 02-13-2014 08:31-0400 BP Diastolic 62 mm[Hg] [facility] Work Phone: 02-13-2014 08:31-0400 BP Systolic 128 mm[Hg] Kika Escalante [facility] Work Phone: 12-26-2013 13:15-0400 BMI (Body Mass Index) 27.76 kg/m2 Rosie Gil [facility] Work Phone: 12-26-2013 13:15-0400 Body Temperature 97.8 [degF] Rosie Gil [facility] Work Phone: Comment on above: Method: Oral 12-26-2013 13:15-0400 Body weight 85.28 kg Rosie Gil [facility] Work Phone: 12-26-2013 13:15-0400 BP Diastolic 58 mm[Hg] Rosie Gil [facility] Work Phone: Comment on above: Patient Position: Sitting; Cuff Location : Left Arm; Cuff Size: Standard 12-26-2013 13:15-0400 BP Systolic 115 mm[Hg] Rosie Gil [facility] Work Phone: Comment on above: Patient Position: Sitting; Cuff Location : Left Arm; Cuff Size: Standard 12-26-2013 13:15-0400 BSA (Body Surface Area) 2.01 m2 Rosie Gil [facility] Work Phone: 12-26-2013 13:15-0400 Height 175.26 cm Rosie Gil [facility] Work Phone: 12-26-2013 13:15-0400 Pulse (Heart Rate) 68 /min Rosie Gil [facility] Work Phone: Comment on above: Pattern: Regular 12-26-2013 13:15-0400 Pulse Oximetry 98 % Laura Rodriguez [facility] Work Phone: Comment on above: Room air 12-26-2013 13:15-0400 Respiratory Rate 16 /min Rosie Gil [facility] Work Phone: Comment on above: Pattern: Unlabored 12-26-2013 13:15-0400 SaO2% (BldA) [Mass fraction] 98 % Rosie Gil [facility] Work Phone: 12-26-2013 13:15-0400 Weight 85.28 kg Laura Rodriguez [facility] Work Phone: 12-08-2013 11:57-0400 BMI (Body Mass Index) 27.17 kg/m2 Yany Pak [facility] Medicine Work Phone: 12-08-2013 11:57-0400 Body Temperature 98.4 [degF] Yany Weber [facility] Work Phone: 12-08-2013 11:57-0400 Body weight 83.46 kg Yany Weber [facility] Work Phone: 12-08-2013 11:57-0400 BP Diastolic 56 mm[Hg] Yany Joyamarkvicky [facility] Work Phone: Comment on above: Patient Position: Sitting; Cuff Location : Left Arm; Cuff Size: Large 12-08-2013 11:57-0400 BP Systolic 94 mm[Hg] Yany Weber [facility] Work Phone: Comment on above: Patient Position: Sitting; Cuff Location : Left Arm; Cuff Size: Large 12-08-2013 11:57-0400 BSA (Body Surface Area) 1.99 m2 Yany Joyayoni [facility] Work Phone: 12-08-2013 11:57-0400 Height 175.26 cm Yany Weber [facility] Work Phone: 12-08-2013 11:57-0400 Pulse (Heart Rate) 76 /min Yany Joyayoni [facility] Work Phone: Comment on above: Pattern: Regular 12-08-2013 11:57-0400 Respiratory Rate 18 /min Yany Gus [facility] Work Phone: Comment on above: Pattern: Unlabored 12-08-2013 11:57-0400 Weight 83.46 kg Laura Rodriguez [facility] Work Phone: 11-11-2013 14:26-0400 Heart rate 461 ms Kika Esc[facility]ante [facility] Work Phone: 07-04-2013 07:17-0500 BMI (Body Mass Index) 28.21 kg/m2 Yany Weber [facility] Work Phone: 07-04-2013 07:17-0500 Body Temperature 96 [degF] Yany Weber [facility] Work Phone: 07-04-2013 07:17-0500 Body weight 86.64 kg Yany Weber [facility] Work Phone: 07-04-2013 07:17-0500 BP Diastolic 70 mm[Hg] Yany Weber [facility] Work Phone: Comment on above: Patient Position: Sitting; Cuff Location : Left Arm; Cuff Size: Large 07-04-2013 07:17-0500 BP Systolic 162 mm[Hg] Yany Weber [facility] Work Phone: Comment on above: Patient Position: Sitting; Cuff Location : Left Arm; Cuff Size: Large 07-04-2013 07:17-0500 BSA (Body Surface Area) 2.03 m2 Yany Weber [facility] Work Phone: 07-04-2013 07:17-0500 Height 175.26 cm Yany Weber [facility] Work Phone: 07-04-2013 07:17-0500 Pulse (Heart Rate) 48 /min Yany Weber [facility] Work Phone: Comment on above: Pattern: Regular 07-04-2013 07:17-0500 Respiratory Rate 16 /min Yany Weber [facility] Work Phone: Comment on above: Pattern: Unlabored 07-04-2013 07:17-0500 Weight 86.64 kg Laura Rodriguez [facility] Work Phone: 06-06-2013 10:59-0500 BMI (Body Mass Index) 28.35 kg/m2 Yany Joyayoni [facility] Medicine Work Phone: 06-06-2013 10:59-0500 Body Temperature 95.7 [degF] Yany Joyayoni [facility] Work Phone: 06-06-2013 10:59-0500 Body weight 87.09 kg Yany Joyayoni [facility] Work Phone: 06-06-2013 10:59-0500 BP Diastolic 72 mm[Hg] Yany Weber [facility] Work Phone: Comment on above: Patient Position: Sitting; Cuff Location : Left Arm; Cuff Size: Large 06-06-2013 10:59-0500 BP Systolic 154 mm[Hg] Yany Weber [facility] Work Phone: Comment on above: Patient Position: Sitting; Cuff Location : Left Arm; Cuff Size: Large 06-06-2013 10:59-0500 BSA (Body Surface Area) 2.03 m2 Yany Vincentvicky [facility] Work Phone: 06-06-2013 10:59-0500 Height 175.26 cm Yany Gus [facility] Work Phone: 06-06-2013 10:59-0500 Pulse (Heart Rate) 52 /min Yany Gus [facility] Work Phone: Comment on above: Pattern: Regular 06-06-2013 10:59-0500 Respiratory Rate 18 /min Yany Joyayoni [facility] Work Phone: Comment on above: Pattern: Unlabored 06-06-2013 10:59-0500 Weight 87.09 kg Laura Rodriguez [facility] Work Phone: 02-26-2013 09:18-0400 BMI (Body Mass Index) 28.94 kg/m2 Yany Gus [facility] Work Phone: 02-26-2013 09:18-0400 Body Temperature 95.1 [degF] Yany Joyayoni [facility] Internal Medicine Work Phone: 02-26-2013 09:18-0400 Body weight 88.91 kg Yany Gus [facility] Internal Medicine Work Phone: 02-26-2013 09:18-0400 BP Diastolic 72 mm[Hg] Yany Vincentvicky [facility] Internal Medicine Work Phone: Comment on above: Patient Position: Sitting; Cuff Location : Left Arm; Cuff Size: Large 02-26-2013 09:18-0400 BP Systolic 154 mm[Hg] Yany Joyayoni [facility] Internal Medicine Work Phone: Comment on above: Patient Position: Sitting; Cuff Location : Left Arm; Cuff Size: Large 02-26-2013 09:18-0400 BSA (Body Surface Area) 2.05 m2 Yany Gus [facility] Internal Medicine Work Phone: 02-26-2013 09:18-0400 Height 175.26 cm Yany Gus [facility] Internal Medicine Work Phone: 02-26-2013 09:18-0400 Pulse (Heart Rate) 52 /min [facility] Work Phone: Comment on above: Pattern: Regular 02-26-2013 09:18-0400 Respiratory Rate 18 /min Yany Gus [facility] Internal Medicine Work Phone: Comment on above: Pattern: Unlabored 02-26-2013 09:18-0400 Weight 88.91 kg Laura Rodriguez [facility] Internal Medicine Work Phone: 09-27-2012 08:26-0500 BMI (Body Mass Index) 30.86 kg/m2 Yany Gus [facility] Internal Medicine Work Phone: 09-27-2012 08:26-0500 Body Temperature 97.1 [degF] Yany Gus [facility] Internal Medicine Work Phone: 09-27-2012 08:26-0500 Body weight 94.8 kg Yanyabhijit Weber [facility] Internal Medicine Work Phone: 09-27-2012 08:26-0500 BP Diastolic 60 mm[Hg] Yany Gus [facility] Internal Medicine Work Phone: Comment on above: Patient Position: Sitting; Cuff Location : Left Arm; Cuff Size: Large 09-27-2012 08:26-0500 BP Systolic 148 mm[Hg] Yany Gus [facility] Internal Medicine Work Phone: Comment on above: Patient Position: Sitting; Cuff Location : Left Arm; Cuff Size: Large 09-27-2012 08:26-0500 BSA (Body Surface Area) 2.1 m2 Yany Gus [facility] Internal Medicine Work Phone: 09-27-2012 08:26-0500 Height 175.26 cm Yany Gus [facility] Internal Medicine Work Phone: 09-27-2012 08:26-0500 Pulse (Heart Rate) 60 /min Yany [facility]su [employer] Internal Medicine Work Phone: Comment on above: Pattern: Regular 09-27-2012 08:26-0500 Respiratory Rate 16 /min Yany Gus [facility] Internal Medicine Work Phone: Comment on above: Pattern: Unlabored 09-27-2012 08:26-0500 Weight 94.8 kg Laura Rodriguez [facility] Internal Medicine Work Phone: 08-23-2012 07:59-0500 BMI (Body Mass Index) 31.16 kg/m2 [facility] Internal Medicine Work Phone: 08-23-2012 07:59-0500 Body Temperature 96.2 [degF] Yany Gus [facility] Internal Medicine Work Phone: 08-23-2012 07:59-0500 Body weight 95.71 kg Yany Gus [facility] Internal Medicine Work Phone: 08-23-2012 07:59-0500 BP Diastolic 72 mm[Hg] Yany Gus [facility] Internal Medicine Work Phone: Comment on above: Patient Position: Sitting; Cuff Location : Left Arm; Cuff Size: Large 08-23-2012 07:59-0500 BP Systolic 154 mm[Hg] Yany Gus [facility] Internal Medicine Work Phone: Comment on above: Patient Position: Sitting; Cuff Location : Left Arm; Cuff Size: Large 08-23-2012 07:59-0500 BSA (Body Surface Area) 2.11 m2 Yany Gus [facility] Internal Medicine Work Phone: 08-23-2012 07:59-0500 Height 175.26 cm Yany Vincentvicky [facility] Internal Medicine Work Phone: 08-23-2012 07:59-0500 Pulse (Heart Rate) 60 /min Yany Joyayoni [facility] Internal Medicine Work Phone: Comment on above: Pattern: Regular 08-23-2012 07:59-0500 Respiratory Rate 18 /min Yany Vincentvicky [facility] Internal Medicine Work Phone: Comment on above: Pattern: Unlabored 08-23-2012 07:59-0500 Weight 95.71 kg Laura Rodriguez [facility] Internal Medicine Work Phone: 07-12-2012 08:02-0500 BMI (Body Mass Index) 30.86 kg/m2 Yany Joyayoni [facility] Internal Medicine Work Phone: 07-12-2012 08:02-0500 Body Temperature 96.4 [degF] Yany Joyayoni [facility] Internal Medicine Work Phone: 07-12-2012 08:02-0500 Body weight 94.8 kg Yany Vincentvicky [facility] Internal Medicine Work Phone: 07-12-2012 08:02-0500 BP Diastolic 62 mm[Hg] Yany Weber [facility] Internal Medicine Work Phone: Comment on above: Patient Position: Sitting; Cuff Location : Left Arm; Cuff Size: Large 07-12-2012 08:02-0500 BP Systolic 154 mm[Hg] Yany Vincentvicky [facility] Internal Medicine Work Phone: Comment on above: Patient Position: Sitting; Cuff Location : Left Arm; Cuff Size: Large 07-12-2012 08:02-0500 BSA (Body Surface Area) 2.1 m2 Yany Vincentvicky [facility] Internal Medicine Work Phone: 07-12-2012 08:02-0500 Height 175.26 cm Yany Joyayoni [facility] Internal Medicine Work Phone: 07-12-2012 08:02-0500 Pulse (Heart Rate) 56 /min Yany Joyayoni [facility] Internal Medicine Work Phone: Comment on above: Pattern: Regular 07-12-2012 08:02-0500 Respiratory Rate 16 /min Yany Vincentvicky [facility] Internal Medicine Work Phone: Comment on above: Pattern: Unlabored 07-12-2012 08:02-0500 Weight 94.8 kg Laura Rodriguez [facility] Internal Medicine Work Phone: 07-05-2012 08:02-0500 BMI (Body Mass Index) 30.13 kg/m2 Yany Gus [facility] Internal Medicine Work Phone: 07-05-2012 08:02-0500 Body Temperature 97 [degF] Yany Gus [facility] Internal Medicine Work Phone: 07-05-2012 08:02-0500 Body weight 92.53 kg Yany Gus [facility] Internal Medicine Work Phone: 07-05-2012 08:02-0500 BP Diastolic 52 mm[Hg] Yany Gus [facility] Internal Medicine Work Phone: Comment on above: Patient Position: Sitting; Cuff Location : Left Arm; Cuff Size: Large 07-05-2012 08:02-0500 BP Systolic 140 mm[Hg] Yany Gus [facility] Internal Medicine Work Phone: Comment on above: Patient Position: Sitting; Cuff Location : Left Arm; Cuff Size: Large 07-05-2012 08:02-0500 BSA (Body Surface Area) 2.08 m2 Yany Gus [facility] Internal Medicine Work Phone: 07-05-2012 08:02-0500 Height 175.26 cm Yany Gus [facility] Internal Medicine Work Phone: 07-05-2012 08:02-0500 Pulse (Heart Rate) 64 /min Yany Gus [place] Work Phone: Comment on above: Pattern: Regular 07-05-2012 08:02-0500 Respiratory Rate 16 /min Yany Gus [facility] Internal Medicine Work Phone: Comment on above: Pattern: Unlabored 07-05-2012 08:02-0500 Weight 92.53 kg Laura Rodriguez [facility] Internal Medicine Work Phone: 07-01-2012 08:30-0500 BMI (Body Mass Index) 31.01 kg/m2 Yany Joyayoni [facility] Internal Medicine Work Phone: 07-01-2012 08:30-0500 Body Temperature 95.6 [degF] Yany Gus [facility] Internal Medicine Work Phone: 07-01-2012 08:30-0500 Body weight 95.26 kg Yany Joyayoni [facility] Internal Medicine Work Phone: 07-01-2012 08:30-0500 BP Diastolic 60 mm[Hg] Yany Gus [facility] Internal Medicine Work Phone: Comment on above: Patient Position: Sitting; Cuff Location : Left Arm; Cuff Size: Large 07-01-2012 08:30-0500 BP Systolic 148 mm[Hg] Yany Gus [facility] Internal Medicine Work Phone: Comment on above: Patient Position: Sitting; Cuff Location : Left Arm; Cuff Size: Large 07-01-2012 08:30-0500 BSA (Body Surface Area) 2.11 m2 Yany Gus [facility] Internal Medicine Work Phone: 07-01-2012 08:30-0500 Height 175.26 cm Yany Gus [facility] Internal Medicine Work Phone: 07-01-2012 08:30-0500 Pulse (Heart Rate) 60 /min [facility] Work Phone: Comment on above: Pattern: Regular 07-01-2012 08:30-0500 Respiratory Rate 16 /min Yany Gus [facility] Internal Medicine Work Phone: Comment on above: Pattern: Unlabored 07-01-2012 08:30-0500 Weight 95.26 kg Laura Rodriguez [facility] Internal Medicine Work Phone: 06-28-2012 11:50-0500 BMI (Body Mass Index) 30.57 kg/m2 Yany Flinner [facility] Internal Medicine Work Phone: 06-28-2012 11:50-0500 Body Temperature 97.5 [degF] Yany Weber [facility] Internal Medicine Work Phone: 06-28-2012 11:50-0500 Body weight 93.9 kg Yany Weber [facility] Internal Medicine Work Phone: 06-28-2012 11:50-0500 BP Diastolic 60 mm[Hg] Yany Joyayoni [facility] Internal Medicine Work Phone: Comment on above: Patient Position: Sitting; Cuff Location : Left Arm; Cuff Size: Large 06-28-2012 11:50-0500 BP Systolic 142 mm[Hg] Yany Gus [facility] Internal Medicine Work Phone: Comment on above: Patient Position: Sitting; Cuff Location : Left Arm; Cuff Size: Large 06-28-2012 11:50-0500 BSA (Body Surface Area) 2.1 m2 Yany Gus [facility] Internal Medicine Work Phone: 06-28-2012 11:50-0500 Height 175.26 cm Yany Gus [facility] Internal Medicine Work Phone: 06-28-2012 11:50-0500 Pulse (Heart Rate) 52 /min Yany Weber [facility] Work Phone: Comment on above: Pattern: Regular 06-28-2012 11:50-0500 Respiratory Rate 18 /min Yany Gus [facility] Internal Medicine Work Phone: Comment on above: Pattern: Unlabored 06-28-2012 11:50-0500 Weight 93.9 kg Laura Shiva [facility] Internal Medicine Work Phone: 06-27-2012 11:56-0500 BMI (Body Mass Index) 30.13 kg/m2 Mya Braga RN [facility] Work Phone: 06-27-2012 11:56-0500 Body weight 92.53 kg Mya Braga RN [facility] Work Phone: 06-27-2012 11:56-0500 BP Diastolic 62 mm[Hg] Mya Braga RN [facility] Work Phone: Comment on above: Patient Position: Sitting; Cuff Location : Left Arm; Cuff Size: Large 06-27-2012 11:56-0500 BP Systolic 120 mm[Hg] Mya Braga RN [facility] Work Phone: Comment on above: Patient Position: Sitting; Cuff Location : Left Arm; Cuff Size: Large 06-27-2012 11:56-0500 BSA (Body Surface Area) 2.08 m2 Mya Braga RN [facility] Work Phone: 06-27-2012 11:56-0500 Height 175.26 cm Mya Braga RN [facility] Work Phone: 06-27-2012 11:56-0500 Pulse (Heart Rate) 52 /min Mya Braga RN [facility] Work Phone: Comment on above: Pattern: Regular 06-27-2012 11:56-0500 Respiratory Rate 18 /min Mya Braga RN [facility] Work Phone: Comment on above: Pattern: Unlabored 06-27-2012 11:56-0500 Weight 92.53 kg Laura Rodriguez [facility] Work Phone: 06-26-2012 12:30-0500 BMI (Body Mass Index) 30.13 kg/m2 Alvina Noyola RN [facility] Internal Medicine Work Phone: 06-26-2012 12:30-0500 Body Temperature 97.6 [degF] Alvina Noyola RN [facility] Internal Medicine Work Phone: Comment on above: Method: Oral 06-26-2012 12:30-0500 Body weight 92.53 kg Alvina Noyola RN [facility] Work Phone: 06-26-2012 12:30-0500 BP Diastolic 76 mm[Hg] Alvina Noyola RN [facility] Work Phone: Comment on above: Patient Position: Sitting; Cuff Location : Left Arm; Cuff Size: Standard 06-26-2012 12:30-0500 BP Systolic 126 mm[Hg] Alvina Noyola RN [facility] Work Phone: Comment on above: Patient Position: Sitting; Cuff Location : Left Arm; Cuff Size: Standard 06-26-2012 12:30-0500 BSA (Body Surface Area) 2.08 m2 Alvina Noyola RN [facility] Internal Medicine Work Phone: 06-26-2012 12:30-0500 Height 175.26 cm Alvina Noyola RN [facility] Internal Medicine Work Phone: 06-26-2012 12:30-0500 Pulse (Heart Rate) 74 /min Alvina Noyola RN [facility] Internal Medicine Work Phone: Comment on above: Pattern: Regular 06-26-2012 12:30-0500 Respiratory Rate 16 /min Alvina Noyola RN [facility] Internal Medicine Work Phone: Comment on above: Pattern: Unlabored 06-26-2012 12:30-0500 Weight 92.53 kg Laura Rodriguez [facility] Internal Medicine Work Phone: 06-25-2012 11:59-0500 BMI (Body Mass Index) 30.13 kg/m2 Yany Weber [facility] Internal Medicine Work Phone: 06-25-2012 11:59-0500 Body Temperature 97.4 [degF] Yany Weber [facility] Internal Medicine Work Phone: 06-25-2012 11:59-0500 Body weight 92.53 kg Yany Weber [facility] Internal Medicine Work Phone: 06-25-2012 11:59-0500 BP Diastolic 46 mm[Hg] Yany Weber [facility] Internal Medicine Work Phone: Comment on above: Patient Position: Sitting; Cuff Location : Left Arm; Cuff Size: Large 06-25-2012 11:59-0500 BP Systolic 110 mm[Hg] Yany Weber [facility] Internal Medicine Work Phone: Comment on above: Patient Position: Sitting; Cuff Location : Left Arm; Cuff Size: Large 06-25-2012 11:59-0500 BSA (Body Surface Area) 2.08 m2 Yany Weber [facility] Internal Medicine Work Phone: 06-25-2012 11:59-0500 Height 175.26 cm Yany Gus [facility] Internal Medicine Work Phone: 06-25-2012 11:59-0500 Pulse (Heart Rate) 60 /min Yany Weber [facility] Internal Medicine Work Phone: Comment on above: Pattern: Regular 06-25-2012 11:59-0500 Respiratory Rate 16 /min Yany Weber [facility] Internal Medicine Work Phone: Comment on above: Pattern: Unlabored 06-25-2012 11:59-0500 Weight 92.53 kg Larua Rodriguez [facility] Internal Medicine Work Phone: 06-24-2012 11:01-0500 BMI (Body Mass Index) 30.27 kg/m2 Yany [place] [facility] Internal Medicine Work Phone: 06-24-2012 11:01-0500 Body Temperature 98.7 [degF] Yany Weber [facility] Internal Medicine Work Phone: 06-24-2012 11:01-0500 Body weight 92.99 kg Yany Gus [facility] Internal Medicine Work Phone: 06-24-2012 11:01-0500 BP Diastolic 54 mm[Hg] Yany Weber [facility] Internal Medicine Work Phone: Comment on above: Patient Position: Sitting; Cuff Location : Left Arm; Cuff Size: Large 06-24-2012 11:01-0500 BP Systolic 110 mm[Hg] Yany Weber [facility] Internal Medicine Work Phone: Comment on above: Patient Position: Sitting; Cuff Location : Left Arm; Cuff Size: Large 06-24-2012 11:01-0500 BSA (Body Surface Area) 2.09 m2 Yany Weber [facility] Internal Medicine Work Phone: 06-24-2012 11:01-0500 Height 175.26 cm Yany Weber [facility] Internal Medicine Work Phone: 06-24-2012 11:01-0500 Pulse (Heart Rate) 64 /min Yany Weber [facility] Internal Medicine Work Phone: Comment on above: Pattern: Regular 06-24-2012 11:01-0500 Respiratory Rate 18 /min Yany Weber [facility] Work Phone: Comment on above: Pattern: Unlabored 06-24-2012 11:01-0500 Weight 92.99 kg Laura Rodriguez [facility] Work Phone: 06-19-2012 12:27-0500 Body Temperature 98.6 [degF] Alis Barrosa [employer] Work Phone: [facility] Work Phone: 06-19-2012 12:27-0500 Body weight 93.44 kg Alis Barrosa [employer] Work Phone: [facility] Work Phone: 06-19-2012 12:27-0500 BP Diastolic 68 mm[Hg] Alis Barrosa [employer] Work Phone: [facility] Work Phone: Comment on above: Patient Position: Supine; Cuff Location: Right Arm; Cuff Size: Standard 06-19-2012 12:27-0500 BP Systolic 140 mm[Hg] Alis Barrosa [employer] Work Phone: [facility] Work Phone: Comment on above: Patient Position: Supine; Cuff Location: Right Arm; Cuff Size: Standard 06-19-2012 12:27-0500 Pulse (Heart Rate) 68 /min Alis Barrosa [employer] Work Phone: [facility] Work Phone: Comment on above: Pattern: Regular 06-19-2012 12:27-0500 Respiratory Rate 16 /min Alis Barrosa [employer] Work Phone: [facility] Work Phone: 06-19-2012 12:27-0500 Weight 93.44 kg Laura Rodriguez [facility] Work Phone: 06-18-2012 10:58-0500 BMI (Body Mass Index) 30.13 kg/m2 Yany Weber [facility] Work Phone: 06-18-2012 10:58-0500 Body Temperature 97.1 [degF] Yany Weber [facility] Internal Medicine Work Phone: 06-18-2012 10:58-0500 Body weight 92.53 kg Yany Weber [facility] Internal Medicine Work Phone: 06-18-2012 10:58-0500 BP Diastolic 52 mm[Hg] Yany Weber [facility] Internal Medicine Work Phone: Comment on above: Patient Position: Sitting; Cuff Location : Left Arm; Cuff Size: Large 06-18-2012 10:58-0500 BP Systolic 120 mm[Hg] Yany Weber [facility] Internal Medicine Work Phone: Comment on above: Patient Position: Sitting; Cuff Location : Left Arm; Cuff Size: Large 06-18-2012 10:58-0500 BSA (Body Surface Area) 2.08 m2 Yany Vincentvicky [facility] Internal Medicine Work Phone: 06-18-2012 10:58-0500 Height 175.26 cm Yany Joyayoni [facility] Internal Medicine Work Phone: 06-18-2012 10:58-0500 Pulse (Heart Rate) 72 /min [facility]any Weber [facility] Work Phone: Comment on above: Pattern: Regular 06-18-2012 10:58-0500 Respiratory Rate 18 /min Yany Vincentvicky [facility] Internal Medicine Work Phone: Comment on above: Pattern: Unlabored 06-18-2012 10:58-0500 Weight 92.53 kg Laura Rodriguez [facility] Internal Medicine Work Phone: 06-17-2012 09:46-0500 BMI (Body Mass Index) 30.58 kg/m2 JO Mcnulty LPN [facility] Internal Medicine Work Phone: 06-17-2012 09:46-0500 Body Temperature 97.8 [degF] JO Mcnulty LPN [facility] Work Phone: Comment on above: Method: Oral 06-17-2012 09:46-0500 Body weight 93.92 kg JO Mcnulty [facility] Internal Medicine Work Phone: 06-17-2012 09:46-0500 BP Diastolic 70 mm[Hg] JO Mcnulty [facility] Internal Medicine Work Phone: Comment on above: Patient Position: Sitting; Cuff Location : Left Arm; Cuff Size: Standard 06-17-2012 09:46-0500 BP Systolic 120 mm[Hg] JO Mcnulty [facility] Internal Medicine Work Phone: Comment on above: Patient Position: Sitting; Cuff Location : Left Arm; Cuff Size: Standard 06-17-2012 09:46-0500 BSA (Body Surface Area) 2.1 m2 JO Mcnulty [facility] Internal Medicine Work Phone: 06-17-2012 09:46-0500 Height 175.26 cm JO Mcnulty [facility] Internal Medicine Work Phone: 06-17-2012 09:46-0500 Pulse (Heart Rate) 62 /min JO Mcnulty [facility] Internal Medicine Work Phone: Comment on above: Pattern: Regular 06-17-2012 09:46-0500 Respiratory Rate 20 /min JO Mcnulty [facility] Internal Medicine Work Phone: Comment on above: Pattern: Unlabored 06-17-2012 09:46-0500 Weight 93.92 kg Laura Shiva [facility] Internal Medicine Work Phone: 06-12-2012 09:24-0500 BMI (Body Mass Index) 30.35 kg/m2 Olivia Nate [facility] Internal Medicine Work Phone: 06-12-2012 09:24-0500 Body Temperature 98.8 [degF] Olivia Sullivan [facility] Internal Medicine Work Phone: Comment on above: Method: Oral 06-12-2012 09:24-0500 Body weight 93.21 kg Olivia Cedeñoer [facility] Work Phone: 06-12-2012 09:24-0500 BP Diastolic 70 mm[Hg] Olivia Sullivan LPN [facility] Work Phone: Comment on above: Patient Position: Sitting; Cuff Location : Left Arm; Cuff Size: Standard 06-12-2012 09:24-0500 BP Systolic 130 mm[Hg] Olivia Sullivan LPN [facility] Work Phone: Comment on above: Patient Position: Sitting; Cuff Location : Left Arm; Cuff Size: Standard 06-12-2012 09:24-0500 BSA (Body Surface Area) 2.09 m2 Olivia Sullivan LPN [facility] Work Phone: 06-12-2012 09:24-0500 Height 175.26 cm Olivia Sullivan LPN [facility] Internal Medicine Work Phone: 06-12-2012 09:24-0500 Pulse (Heart Rate) 60 /min Olivia Sullivan LPN [facility] Work Phone: Comment on above: Pattern: Regular 06-12-2012 09:24-0500 Pulse Oximetry 98 % Laura Rodriguez [facility] Internal Medicine Work Phone: Comment on above: Room air 06-12-2012 09:24-0500 Respiratory Rate 16 /min Olivia Sullivan LPN [facility] Work Phone: 06-12-2012 09:24-0500 SaO2% (BldA) [Mass fraction] 98 % Olivia Sullivan LPN [facility] Work Phone: 06-12-2012 09:24-0500 Weight 93.21 kg Laura Rodriguez [facility] Internal Medicine Work Phone: 06-11-2012 09:57-0500 BMI (Body Mass Index) 30.62 kg/m2 Olivia Sullivan LPN [facility] Work Phone: 06-11-2012 09:57-0500 Body Temperature 98.7 [degF] Olivia Sullivan LPN [facility] Work Phone: Comment on above: Method: Oral 06-11-2012 09:57-0500 Body weight 94.07 kg Olivia Sullivan LPN [facility] Work Phone: 06-11-2012 09:57-0500 BP Diastolic 72 mm[Hg] Olivia Sullivan LPN [facility] Work Phone: Comment on above: Patient Position: Sitting; Cuff Location : Left Arm; Cuff Size: Standard 06-11-2012 09:57-0500 BP Systolic 120 mm[Hg] Olivia Sullivan LPN [facility] Work Phone: Comment on above: Patient Position: Sitting; Cuff Location : Left Arm; Cuff Size: Standard 06-11-2012 09:57-0500 BSA (Body Surface Area) 2.1 m2 Olivia Sullivan LPN [facility] Work Phone: 06-11-2012 09:57-0500 Height 175.26 cm Olivia Sullivan LPN [facility] Work Phone: 06-11-2012 09:57-0500 Pulse (Heart Rate) 66 /min Olivia Sullivan LPN [facility] Work Phone: Comment on above: Pattern: Regular 06-11-2012 09:57-0500 Respiratory Rate 16 /min Olivia Sullivan LPN [facility] Work Phone: 06-11-2012 09:57-0500 Weight 94.07 kg Laura Rodriguez [facility] Work Phone: 06-10-2012 10:28-0500 BMI (Body Mass Index) 30.95 kg/m2 Naima Fofana LPN [facility] Work Phone: 06-10-2012 10:28-0500 Body Temperature 97.6 [degF] Naima Fofana LPN [facility] Work Phone: Comment on above: Method: Tympanic 06-10-2012 10:28-0500 Body weight 95.77 kg Naima Fofana LPN [facility] Work Phone: 06-10-2012 10:28-0500 BP Diastolic 58 mm[Hg] Naima Fofana LPN [facility] Work Phone: Comment on above: Patient Position: Sitting; Cuff Location : Left Arm; Cuff Size: Standard 06-10-2012 10:28-0500 BP Systolic 130 mm[Hg] Naima Fofana MARÍA [facility] Work Phone: Comment on above: Patient Position: Sitting; Cuff Location : Left Arm; Cuff Size: Standard 06-10-2012 10:28-0500 BSA (Body Surface Area) 2.12 m2 Naimaforeign Fofana MARÍA [facility] Work Phone: 06-10-2012 10:28-0500 Height 175.9 cm Naima Fofana MARÍA [facility] Work Phone: 06-10-2012 10:28-0500 Pulse (Heart Rate) 58 /min Naima Fofana MARÍA [facility] Work Phone: Comment on above: Pattern: Regular 06-10-2012 10:28-0500 Pulse Oximetry 98 % Laura Rodriguez [facility] Medicine Work Phone: Comment on above: Room air 06-10-2012 10:28-0500 SaO2% (BldA) [Mass fraction] 98 % Naimaforeign Fofana MARÍA [facility] Work Phone: 06-10-2012 10:28-0500 Weight 95.77 kg Laura Shiva [facility] Work Phone: 11-09-2011 06:55-0400 BMI (Body Mass Index) 29.91 kg/m2 Mya Braga RN [facility] Work Phone: 11-09-2011 06:55-0400 Body Temperature 97.8 [degF] Mya Braga RN [facility] Work Phone: Comment on above: Method: Oral 11-09-2011 06:55-0400 Body weight 92.53 kg Mya Braga RN [facility] Work Phone: 11-09-2011 06:55-0400 BP Diastolic 80 mm[Hg] Mya Braga RN [facility] Work Phone: Comment on above: Patient Position: Sitting; Cuff Location : Left Arm; Cuff Size: Large 11-09-2011 06:55-0400 BP Systolic 142 mm[Hg] Mya Braga RN [facility] Work Phone: Comment on above: Patient Position: Sitting; Cuff Location : Left Arm; Cuff Size: Large 11-09-2011 06:55-0400 BSA (Body Surface Area) 2.09 m2 Mya Braga RN [facility] Work Phone: 11-09-2011 06:55-0400 Height 175.9 cm Mya Braga RN [facility] Work Phone: 11-09-2011 06:55-0400 Pulse (Heart Rate) 64 /min Mya Braga RN [facility] Work Phone: Comment on above: Pattern: Regular 11-09-2011 06:55-0400 Respiratory Rate 20 /min Mya Braga RN [facility] Work Phone: Comment on above: Pattern: Unlabored 11-09-2011 06:55-0400 Weight 92.53 kg Laura Rodriguez [facility] Work Phone: 09-21-2011 07:54-0500 BMI (Body Mass Index) 29.91 kg/m2 Inez Almanza RN [facility] Internal Medicine Work Phone: 09-21-2011 07:54-0500 Body Temperature 98.2 [degF] Inez Almanza RN [facility] Work Phone: Comment on above: Method: Oral 09-21-2011 07:54-0500 Body weight 92.53 kg Inez Almanza RN [facility] Work Phone: 09-21-2011 07:54-0500 BP Diastolic 54 mm[Hg] Inez Almanza RN [facility] Work Phone: Comment on above: Patient Position: Sitting; Cuff Location : Left Arm; Cuff Size: Large 09-21-2011 07:54-0500 BP Systolic 142 mm[Hg] Inez Almanza RN [facility] Work Phone: Comment on above: Patient Position: Sitting; Cuff Location : Left Arm; Cuff Size: Large 09-21-2011 07:54-0500 BSA (Body Surface Area) 2.09 m2 Inez Almanza RN [facility] Work Phone: 09-21-2011 07:54-0500 Height 175.9 cm Inez Almanza RN [facility] Internal Medicine Work Phone: 09-21-2011 07:54-0500 Pulse (Heart Rate) 60 /min Inez Almanza RN [facility] Internal Medicine Work Phone: Comment on above: Pattern: Regular 09-21-2011 07:54-0500 Respiratory Rate 18 /min Inez Almanza RN [facility] Internal Medicine Work Phone: Comment on above: Pattern: Unlabored 09-21-2011 07:54-0500 Weight 92.53 kg Laura Rodriguez [facility] Internal Medicine Work Phone: 08-30-2011 16:02-0500 BMI (Body Mass Index) 30.05 kg/m2 Yany Weber [facility] Internal Medicine Work Phone: 08-30-2011 16:02-0500 Body Temperature 97.9 [degF] Yany Weber [facility] Medicine Work Phone: 08-30-2011 16:02-0500 Body weight 92.99 kg Yany Weber [facility] Medicine Work Phone: 08-30-2011 16:02-0500 BP Diastolic 60 mm[Hg] Yany Weber [facility] Work Phone: Comment on above: Patient Position: Sitting; Cuff Location : Left Arm; Cuff Size: Large 08-30-2011 16:02-0500 BP Systolic 132 mm[Hg] Yany Weber [facility] Work Phone: Comment on above: Patient Position: Sitting; Cuff Location : Left Arm; Cuff Size: Large 08-30-2011 16:02-0500 BSA (Body Surface Area) 2.09 m2 Yany Weber [facility] Medicine Work Phone: 08-30-2011 16:02-0500 Height 175.9 cm Yany Weber [facility] Internal Medicine Work Phone: 08-30-2011 16:02-0500 Pulse (Heart Rate) 60 /min Yany Gus [facility] Work Phone: Comment on above: Pattern: Regular 08-30-2011 16:02-0500 Respiratory Rate 16 /min Yany Gus [facility] Internal Medicine Work Phone: Comment on above: Pattern: Unlabored 08-30-2011 16:02-0500 Weight 92.99 kg Laura Rodriguez [facility] Work Phone: 06-20-2011 16:42-0500 Height 182.88 cm Kika Escalante [facility] Work Phone: 03-03-2011 08:40-0400 BMI (Body Mass Index) 29.03 kg/m2 Yany [facility] Work Phone: 03-03-2011 08:40-0400 Body Temperature 97.1 [degF] Yany Weber [facility] Medicine Work Phone: 03-03-2011 08:40-0400 Body weight 89.81 kg Yany Gus [facility] Medicine Work Phone: 03-03-2011 08:40-0400 BP Diastolic 52 mm[Hg] Yany Gus [facility] Work Phone: Comment on above: Patient Position: Sitting; Cuff Location : Left Arm; Cuff Size: Large 03-03-2011 08:40-0400 BP Systolic 134 mm[Hg] Yany Weber [facility] Medicine Work Phone: Comment on above: Patient Position: Sitting; Cuff Location : Left Arm; Cuff Size: Large 03-03-2011 08:40-0400 BSA (Body Surface Area) 2.06 m2 Yany Weber [facility] Internal Medicine Work Phone: 03-03-2011 08:40-0400 Height 175.9 cm Yany Weber [facility] Medicine Work Phone: 03-03-2011 08:40-0400 Pulse (Heart Rate) 56 /min Yany Weber [facility] Work Phone: Comment on above: Pattern: Regular 03-03-2011 08:40-0400 Respiratory Rate 16 /min Yany Weber [facility] Work Phone: Comment on above: Pattern: Unlabored 03-03-2011 08:40-0400 Weight 89.81 kg Laura Rodriguez [facility] Work Phone: 06-29-2009 10:09-0500 Body weight 0 kg Rosa A Fast DO Work Phone: [facility] Work Phone: 06-29-2009 10:09-0500 BP Diastolic 75 mm[Hg] Rosa A Fast DO Work Phone: [facility] Work Phone: Comment on above: Patient Position: Sitting; Cuff Location : Undefined; Cuff Size: Undefined 06-29-2009 10:09-0500 BP Systolic 135 mm[Hg] Rosa A Fast DO Work Phone: [facility] Work Phone: Comment on above: Patient Position: Sitting; Cuff Location : Undefined; Cuff Size: Undefined 06-29-2009 10:09-0500 Head Circumference 0 cm Laura Rodriguez [facility] Work Phone: 06-29-2009 10:09-0500 Head Occipital-frontal circumference 0 cm Rosa A Fast DO Work Phone: [facility] Work Phone: 06-29-2009 10:09-0500 Height 0 cm Rosa A Fast DO Work Phone: [facility] Work Phone: 06-29-2009 10:09-0500 Weight 0 kg Laura Rodriguez [facility] Work Phone: 06-29-2009 09:08-0500 Body Temperature 97.7 [degF] Inez Almanza RN [facility] Work Phone: Comment on above: Method: Oral 06-29-2009 09:08-0500 Body weight 93.9 kg Inez Almanza RN [facility] Work Phone: 06-29-2009 09:08-0500 BP Diastolic 58 mm[Hg] Inez Almanza RN [facility] Work Phone: Comment on above: Patient Position: Sitting; Cuff Location : Left Arm; Cuff Size: Standard 06-29-2009 09:08-0500 BP Systolic 156 mm[Hg] Inez Almanza RN [facility] Work Phone: Comment on above: Patient Position: Sitting; Cuff Location : Left Arm; Cuff Size: Standard 06-29-2009 09:08-0500 Head Circumference 0 cm Laura Shiva [facility] Work Phone: 06-29-2009 09:08-0500 Head Occipital-frontal circumference 0 cm Inez Almanza RN [facility] Work Phone: 06-29-2009 09:08-0500 Height 0 cm Inez Almanza RN [facility] Work Phone: 06-29-2009 09:08-0500 Pulse (Heart Rate) 60 /min Inez Almanza RN [facility] Work Phone: Comment on above: Pattern: Regular 06-29-2009 09:08-0500 Respiratory Rate 18 /min Inez Almanza RN [facility] Work Phone: Comment on above: Pattern: Unlabored 06-29-2009 09:08-0500 Weight 93.9 kg Laura Shiva [facility] Work Phone: 02-25-2008 16:27-0400 Body Temperature 97.8 [degF] Yany Weber [facility] Work Phone: Comment on above: Method: Undefined 02-25-2008 16:27-0400 Body weight 94.86 kg Yany Weber [facility] Work Phone: 02-25-2008 16:27-0400 BP Diastolic 58 mm[Hg] Yany Weber [facility] Work Phone: Comment on above: Patient Position: Sitting; Cuff Location : Right Arm; Cuff Size: Standard 02-25-2008 16:27-0400 BP Systolic 118 mm[Hg] Yany Weber [facility] Work Phone: Comment on above: Patient Position: Sitting; Cuff Location : Right Arm; Cuff Size: Standard 02-25-2008 16:27-0400 Head Circumference 0 cm Laura Rodriguez [facility] Work Phone: 02-25-2008 16:27-0400 Head Occipital-frontal circumference 0 cm Yany Joyayoni [facility] Work Phone: 02-25-2008 16:27-0400 Height 0 cm Yany Joyamarkvicky [facility] Work Phone: 02-25-2008 16:27-0400 Pulse (Heart Rate) 60 /min Yany Weber [facility] Internal Medicine Work Phone: Comment on above: Pattern: Regular 02-25-2008 16:27-0400 Respiratory Rate 16 /min Yany Gus [facility] Work Phone: Comment on above: Pattern: Undefined 02-25-2008 16:27-0400 Weight 94.86 kg Laura Rodriguez [facility] Work Phone: 03-15-2007 10:00-0400 BMI (Body Mass Index) 29.56 kg/m2 Yany Weber [facility] Medicine Work Phone: 03-15-2007 10:00-0400 Body Temperature 97.9 [degF] Yany Gus [facility] Work Phone: Comment on above: Method: Oral 03-15-2007 10:00-0400 Body weight 93.44 kg Yany Joyayoni [facility] Work Phone: 03-15-2007 10:00-0400 BP Diastolic 70 mm[Hg] Yany Gus [facility] Work Phone: Comment on above: Patient Position: Sitting; Cuff Location : Left Arm; Cuff Size: Standard 03-15-2007 10:00-0400 BP Systolic 134 mm[Hg] Yany Gus [facility] Work Phone: Comment on above: Patient Position: Sitting; Cuff Location : Left Arm; Cuff Size: Standard 03-15-2007 10:00-0400 BSA (Body Surface Area) 2.11 m2 Yany Gus [facility] Work Phone: 03-15-2007 10:00-0400 Head Circumference 0 cm Laura Rodriguez [facility] Work Phone: 03-15-2007 10:00-0400 Head Occipital-frontal circumference 0 cm Yany Gus [facility] Work Phone: 03-15-2007 10:00-0400 Height 177.8 cm Yany Gus [facility] Work Phone: 03-15-2007 10:00-0400 Pulse (Heart Rate) 56 /min [facility] Work Phone: Comment on above: Pattern: Regular 03-15-2007 10:00-0400 Respiratory Rate 16 /min Yany Gus [facility] Work Phone: Comment on above: Pattern: Unlabored 03-15-2007 10:00-0400 Weight 93.44 kg Laura Rodriguez [facility] Work Phone: 01-25-2007 10:01-0400 BMI (Body Mass Index) 29.7 kg/m2 Yany Gus [facility] Medicine Work Phone: 01-25-2007 10:01-0400 Body Temperature 97.6 [degF] Yany Weber [facility] Work Phone: Comment on above: Method: Oral 01-25-2007 10:01-0400 Body weight 93.9 kg Yany Gus [facility] Work Phone: 01-25-2007 10:01-0400 BP Diastolic 62 mm[Hg] Yany Weber [facility] Work Phone: Comment on above: Patient Position: Sitting; Cuff Location : Left Arm; Cuff Size: Standard 01-25-2007 10:01-0400 BP Systolic 114 mm[Hg] Yany Weber [facility] Work Phone: Comment on above: Patient Position: Sitting; Cuff Location : Left Arm; Cuff Size: Standard 01-25-2007 10:01-0400 BSA (Body Surface Area) 2.12 m2 Yany Weber [facility] Medicine Work Phone: 01-25-2007 10:-0400 Head Circumference 0 cm Laura Rodriguez [facility] Medicine Work Phone: 01-25-2007 10:0400 Head Occipital-frontal circumference 0 cm Yany Weber [facility] Medicine Work Phone: 01-25-2007 10:040 Height 177.8 cm Yany Weber [facility] Medicine Work Phone: 01-25-2007 10:01-0400 Pulse (Heart Rate) 52 /min Yany Weber [facility] Work Phone: Comment on above: Pattern: Regular 01-25-2007 10:-0400 Respiratory Rate 16 /min Yany Weber [facility] Medicine Work Phone: Comment on above: Pattern: Unlabored 01-25-2007 10:01-0400 Weight 93.9 kg Laura Rodriguez [facility] Medicine Work Phone: 10-09-2006 10:40-0400 BMI (Body Mass Index) 30.14 kg/m2 Yany Weber [facility] Internal Medicine Work Phone: 10-09-2006 10:40-0400 Body Temperature 97 [degF] Yany Weber [facility] Work Phone: Comment on above: Method: Oral 10-09-2006 10:40-0400 Body weight 95.28 kg Yany Weber [facility] Work Phone: 10-09-2006 10:40-0400 BP Diastolic 64 mm[Hg] [facility] Work Phone: Comment on above: Patient Position: Sitting; Cuff Location : Right Arm; Cuff Size: Standard 10-09-2006 10:40-0400 BP Systolic 130 mm[Hg] Yany Weber [facility] Work Phone: Comment on above: Patient Position: Sitting; Cuff Location : Right Arm; Cuff Size: Standard 10-09-2006 10:40-0400 BSA (Body Surface Area) 2.13 m2 Yany Weber [facility] Medicine Work Phone: 10-09-2006 10:40-0400 Head Circumference 0 cm Laura Rodriguez [facility] Work Phone: 10-09-2006 10:40-0400 Head Occipital-frontal circumference 0 cm Yany Joyayoni [facility] Medicine Work Phone: 10-09-2006 10:40-0400 Height 177.8 cm Yany Vincentvicky [facility] Work Phone: 10-09-2006 10:40-0400 Pulse (Heart Rate) 56 /min Yany Weber [facility] Internal Medicine Work Phone: Comment on above: Pattern: Regular 10-09-2006 10:40-0400 Respiratory Rate 20 /min Yany Vincentvicky [facility] Medicine Work Phone: Comment on above: Pattern: Unlabored 10-09-2006 10:40-0400 Weight 95.28 kg Laura Rodriguez [facility] Medicine Work Phone: 06-20-2006 13:21-0500 Body Temperature 97.8 [degF] Yany Weber [facility] Work Phone: Comment on above: Method: Oral 06-20-2006 13:21-0500 Body weight 93.04 kg Yany Vincentvicky [facility] Work Phone: 06-20-2006 13:21-0500 BP Diastolic 70 mm[Hg] Yany Vincentvicky [facility] Work Phone: Comment on above: Patient Position: Sitting; Cuff Location : Right Arm; Cuff Size: Standard 06-20-2006 13:21-0500 BP Systolic 120 mm[Hg] Yanyabhijit Weber [facility] Medicine Work Phone: Comment on above: Patient Position: Sitting; Cuff Location : Right Arm; Cuff Size: Standard 06-20-2006 13:21-0500 Head Circumference 0 cm Laura Rodriguez [facility] Medicine Work Phone: 06-20-2006 13:21-0500 Head Occipital-frontal circumference 0 cm Yany Weber [facility] Medicine Work Phone: 06-20-2006 13:21-0500 Height 0 cm Yany Weber [facility] Medicine Work Phone: 06-20-2006 13:21-0500 Pulse (Heart Rate) 72 /min Yany Weber [facility] Internal Medicine Work Phone: Comment on above: Pattern: Regular 06-20-2006 13:21-0500 Respiratory Rate 16 /min [facility] Work Phone: Comment on above: Pattern: Unlabored 06-20-2006 13:21-0500 Weight 93.04 kg Laura Rodriguez [facility] Medicine Work Phone: 05-31-2006 09:49-0500 BMI (Body Mass Index) 30.28 kg/m2 Laura Rodriguez [facility] Internal Medicine Work Phone: 05-31-2006 09:49-0500 Body Temperature 98.1 [degF] Laura Rodriguez [facility] Internal Medicine Work Phone: Comment on above: Method: Oral 05-31-2006 09:49-0500 Body weight 95.71 kg Laura Rodriguez [facility] Medicine Work Phone: 05-31-2006 09:49-0500 BP Diastolic 66 mm[Hg] Laura Rodriguez [facility] Medicine Work Phone: Comment on above: Patient Position: Sitting; Cuff Location : Undefined; Cuff Size: Undefined 05-31-2006 09:49-0500 BP Systolic 144 mm[Hg] Laura Rodriguez [facility] Medicine Work Phone: Comment on above: Patient Position: Sitting; Cuff Location : Undefined; Cuff Size: Undefined 05-31-2006 09:49-0500 BSA (Body Surface Area) 2.14 m2 Laura Rodriguez [facility] Medicine Work Phone: 05-31-2006 09:49-0500 Head Circumference 0 cm Laura Rodriguez [facility] Medicine Work Phone: 05-31-2006 09:49-0500 Head Occipital-frontal circumference 0 cm Laura Rodriguez DO Work Phone: [facility] Medicine Work Phone: 05-31-2006 09:49-0500 Height 177.8 cm Laura Rodriguez [facility] Medicine Work Phone: 05-31-2006 09:49-0500 Pulse (Heart Rate) 64 /min Laura Rodriguez [facility] Internal Medicine Work Phone: Comment on above: Pattern: Regular 05-31-2006 09:49-0500 Respiratory Rate 16 /min Laura Rodriguez [facility] Internal Medicine Work Phone: Comment on above: Pattern: Undefined 05-31-2006 09:49-0500 Weight 95.71 kg Laura Rodriguez [facility] Internal Medicine Work Phone: 04-17-2006 10:39-0400 BMI (Body Mass Index) 29 kg/m2 [facility] Work Phone: 04-17-2006 10:39-0400 Body Temperature 98 [degF] Laura Rodriguez [facility] Internal Medicine Work Phone: Comment on above: Method: Undefined 04-17-2006 10:39-0400 Body weight 91.68 kg Laura Rodriguez [facility] Medicine Work Phone: 04-17-2006 10:39-0400 BP Diastolic 68 mm[Hg] Laura Rodriguez [facility] Medicine Work Phone: Comment on above: Patient Position: Sitting; Cuff Location : Left Arm; Cuff Size: Standard 04-17-2006 10:39-0400 BP Systolic 124 mm[Hg] Laura Rodriguez [facility] Medicine Work Phone: Comment on above: Patient Position: Sitting; Cuff Location : Left Arm; Cuff Size: Standard 04-17-2006 10:39-0400 BSA (Body Surface Area) 2.1 m2 Laura Crawfordon [facility] Work Phone: 04-17-2006 10:39-0400 Head Circumference 0 cm Laura Crawfordon [facility] Work Phone: 04-17-2006 10:39-0400 Head Occipital-frontal circumference 0 cm Laura Rodriguez DO Work Phone: [facility] Work Phone: 04-17-2006 10:39-0400 Height 177.8 cm Laura Crawfordon [facility] Work Phone: 04-17-2006 10:39-0400 Pulse (Heart Rate) 18 /min Laura Crawfordon [facility] Work Phone: Comment on above: Pattern: Regular 04-17-2006 10:39-0400 Respiratory Rate 60 /min Laura Rodriguez [facility] Medicine Work Phone: Comment on above: Pattern: Unlabored 04-17-2006 10:39-0400 Weight 91.68 kg Laura Crawfordon [facility] Internal Medicine Work Phone: Encounters Encounter Date Encounter Type Care Provider Facility Start: 03-25-2025 End: 03-25-2025 Patient encounter procedure Arnie BOWLING -[facility] Work Phone: Start: 03-25-2025 End: 03-25-[address] aLura Rodrgiuez DO Work Phone: -[facility] Start: 03-13-2025 End: 03-13-[address] Laura Rodriguez DO Work Phone: -[facility] Start: 03-13-2025 End: 03-13-[address] Benito Diaz MD -[facility] Work Phone: Start: 03-02-2025 End: 03-02-[address] Laura Rodriguez DO Work Phone: -Laboratory Start: 03-02-2025 End: 03-02-2025 Patient encounter procedure Arnie Youssef DISTRICT OPERATIONS MANAGER-C -Laboratory Work Phone: Start: 03-02-2025 End: 03-02-2025 ambulatory Arnie Youssef DISTRICT OPERATIONS MANAGER Facility:[facility] Start: 02-19-2025 End: 02-19-2025 Patient encounter procedure Arnie Youssef DISTRICT OPERATIONS MANAGER-C -[facility] Work Phone: Start: 02-19-2025 End: 02-19-[address] Laura Rodriguez DO Work Phone: -[facility] Start: 02-03-2025 End: 02-03-[address] Laura Rodriguez DO Work Phone: -Laboratory Start: 02-03-2025 End: 02-03-2025 Patient encounter procedure Arnie Youssef DISTRICT OPERATIONS MANAGER-C -Laboratory Work Phone: Start: 02-03-2025 End: 02-03-2025 ambulatory Arnie Youssef DISTRICT OPERATIONS MANAGER Facility:[facility] Start: 12-17-2024 End: 12-17-[address] Laura Rodriguez DO Work Phone: [facility] Work Phone: Start: 12-17-2024 End: 12-17-[address] Benito Diaz MD -[facility] Work Phone: Start: 09-19-2024 End: 09-19-2024 Patient encounter procedure Arnie Youssef DISTRICT OPERATIONS MANAGER-C -[facility] Work Phone: Start: 09-19-2024 End: 09-19-2024 ambulatory Laura Rodriguez [facility] Start: 09-18-2024 End: 09-18-2024 Patient encounter procedure Arnie Youssef DISTRICT OPERATIONS MANAGER-C -Laboratory Work Phone: Start: 09-18-2024 End: 09-18-2024 ambulatory Arnie Youssef DISTRICT OPERATIONS MANAGER Facility:[facility] Start: 09-13-2024 End: 09-13-2024 ambulatory Laura Shiva Facility:[facility] Start: 08-29-2024 End: 08-29-2024 ambulatory Laura Shiva Facility:[facility] Start: 08-25-2024 ambulatory Arnie H Roof DISTRICT OPERATIONS MANAGER Facility :[facility] Start: 08-22-2024 ambulatory Laura Shiva Facilit y:[facility] Start: 08-22-2024 End: 08-22-2024 ambulatory Laura Shiva Facility:[facility] Start: 08-18-2024 End: 08-18-2024 ambulatory Laura Shiva Facility:[facility] Start: 08-18-2024 End: 08-18-2024 ambulatory Arnie H Roof DISTRICT OPERATIONS MANAGER Facility:[facility] Start: 08-13-2024 End: 08-13-2024 ambulatory Laura Shiva Facility[place] Start: 08-13-2024 End: 08-13-2024 ambulatory Laura Shiva Facility:[facility] Start: 07-28-2024 End: 07-28-2024 ambulatory Laura Shiva Facility:[facility] Start: 07-17-2024 End: 07-17-2024 ambulatory Laura Shiva Facility[place] Start: 06-14-2024 End: 06-14-2024 ambulatory Laura Shiva Facility:[facility] Start: 05-06-2024 End: 05-06-2024 ambulatory Laura Shiva Facility:[facility] Start: 06-25-2023 Non-patient / Non-visit Dr. Laura Rodriguez Work Phone: [facility] Work Phone: Start: 06-25-2023 Non-patient / Non-visit Dr. Laura Rodriguez Work Phone: [facility] Work Phone: Start: 06-25-2023 Non-patient / Non-visit Dr. Laura Rodriguez Work Phone: [facility] Start: 06-25-2023 End: 06-25-2023 ambulatory Dr. Laura Rodriguez Work Phone: [facility] Work Phone: Start: 06-25-2023 End: 06-25-[address] [facility] Start: 06-18-2023 End: 06-18-[address] Laura Rodriguez Work Phone: [facility] Work Phone: Start: 05-24-2023 End: 05-24-[address] Laura Rodriguez Work Phone: [facility] Work Phone: Start: 03-16-2023 End: 03-16-[address] Laura Rodriguez Work Phone: [facility] Work Phone: Start: 06-20-2021 End: 06-20-2021 Laura Rodriguez DO Work Phone: [facility] Start: 06-13-2021 End: 06-13-2021 Office outpatient visit 10 minutes Laura Rodriguez DO Work Phone: [facility] Start: 07-15-2020 End: 07-15-2020 Office outpatient visit 5 minutes Laura Rodriguez [facility] Start: 07-15-2020 End: 07-15-2020 Patient encounter procedure Shaina Jules CMA [facility]; [facility] Work Phone: Start: 07-15-2020 End: 07-15-2020 Periodic preventive med est patient 65yrs& older Laura Rodriguez [facility] Start: 07-15-2020 Review Laura Rodriguez [facility] Start: 07-01-2020 End: 07-01-2020 Office outpatient visit 25 minutes Laura Rodriguez [facility] Start: 05-13-2020 End: 05-13-2020 Office outpatient visit 5 minutes Laura Rodriguez [facility] Start: 09-04-2019 End: 09-04-2019 Office outpatient visit 15 minutes Laura Rodriguez DO Work Phone: [facility] Start: 07-11-2019 End: 07-11-2019 Office outpatient visit 5 minutes Laura Rodriguez DO Work Phone: [facility] Start: 11-29-2017 End: 11-30-2017 Office outpatient visit 25 minutes Laura Rodriguez [facility] Start: 09-11-2017 End: 09-11-2017 Patient encounter procedure Laura Rodriguez DO Work Phone: [facility] Start: 09-11-2017 End: 09-11-2017 Periodic preventive med est patient 65yrs& older Laura Shiva [facility] Start: 08-28-2017 End: 08-28-2017 Office outpatient visit 25 minutes Laura Rodriguez [facility] Start: 04-26-2017 End: 04-26-2017 Office outpatient visit 5 minutes Laura Rodriguez [facility] Start: 01-25-2017 End: 01-25-2017 Phone Encounter Laura Shiva [facility] Start: 01-25-2017 End: 01-25-2017 Laura Rodriguez DO Work Phone: [facility] Start: 01-25-2017 End: 01-25-2017 Office outpatient visit 25 minutes Laura Rodriguez [facility] Start: 07-04-2016 End: 07-04-2016 Patient encounter Laura Rodriguez [facility] Start: 07-04-2016 End: 07-04-2016 Laura Rodriguez DO Work Phone: [facility] Start: 06-20-2016 End: 06-20-2016 Phone Encounter Laura Rodriguez [facility] Start: 06-20-2016 End: 06-20-2016 Laura Rodriguez DO Work Phone: [facility] Start: 12-22-2015 End: 12-26-2015 Office outpatient visit 25 minutes Laura Shiva [facility] Start: 09-28-2015 End: 09-28-2015 Office outpatient visit 25 minutes Laura Shiva [facility] Start: 05-14-2015 End: 05-16-2015 Office outpatient visit 25 minutes Laura Shiva [facility] Start: 12-25-2014 End: 12-27-2014 Office outpatient visit 25 minutes Laura Rodriguez [facility] Start: 09-25-2014 End: 09-25-2014 Phone Encounter Laura Rodriguez [facility] Start: 09-25-2014 End: 09-25-2014 Laura Rodriguez DO Work Phone: [facility] Start: 08-11-2014 End: 08-11-2014 Phone Encounter Laura Rodriguez [facility] Start: 08-11-2014 End: 08-11-2014 Laura Rodriguez DO Work Phone: [facility] Start: 08-05-2014 End: 08-05-2014 Phone Encounter Laura Rodriguez [facility] Start: 08-05-2014 End: 08-05-2014 Laura Rodriguez DO Work Phone: [facility] Start: 07-20-2014 End: 07-20-2014 Office outpatient visit 25 minutes Laura oRdriguez [facility] Start: 12-26-2013 End: 12-26-2013 Patient encounter Laura Rodriguez [facility] Start: 12-26-2013 End: 12-26-2013 Lauralc Crawfordon DO Work Phone: [facility] Start: 12-08-2013 End: 12-08-2013 Patient encounter Laura Rodriguez [facility] Start: 12-08-2013 End: 12-08-2013 Laura Crawfordon DO Work Phone: [facility] Start: 08-04-2013 End: 08-04-2013 Phone Encounter Laura Rodriguez [facility] Start: 08-04-2013 End: 08-04-2013 Laura Rodriguez DO Work Phone: [facility] Start: 07-04-2013 End: 07-06-2013 Patient encounter Laura Rodriguez [facility] Start: 07-04-2013 End: 07-06-2013 Laura Shiva DO Work Phone: [facility] Start: 06-06-2013 End: 06-08-2013 Patient encounter Laura Rodriguez [facility] Start: 06-06-2013 End: 06-08-2013 Laura Shiva DO Work Phone: [facility] Start: 02-26-2013 End: 02-26-2013 Patient encounter Laura Rodriguez [facility] Start: 02-26-2013 End: 02-26-2013 Lauralc Crawfordon DO Work Phone: [facility] Start: 09-27-2012 End: 09-27-2012 Patient encounter Laura Rodriguez [facility] Start: 09-27-2012 End: 09-27-2012 Lauralc Crawfordon DO Work Phone: [facility] Start: 08-23-2012 End: 08-23-2012 Patient encounter Laura Rodriguez [facility] Start: 08-23-2012 End: 08-23-2012 Lauralc Crawfordon DO Work Phone: [facility] Start: 07-12-2012 End: 07-12-2012 Patient encounter Laura Rodriguez [facility] Start: 07-12-2012 End: 07-12-2012 Lauralc Crawfordon DO Work Phone: [facility] Start: 07-05-2012 End: 07-05-2012 Patient encounter Laura Rodriguez [facility] Start: 07-05-2012 End: 07-05-2012 Lauralc Crawfordon DO Work Phone: [facility] Start: 07-01-2012 End: 07-01-2012 Patient encounter Laura Rodriguez [facility] Start: 07-01-2012 End: 07-01-2012 Laura Rodriguez DO Work Phone: [facility] Start: 06-28-2012 End: 06-30-2012 Patient encounter Laura Rodriguez [facility] Start: 06-28-2012 End: 06-30-2012 Laura Shiva DO Work Phone: [facility] Start: 06-27-2012 End: 06-27-2012 Patient encounter Laura Rodriguez [facility] Start: 06-27-2012 End: 06-27-2012 Lauralc Crawfordon DO Work Phone: [facility] Start: 06-26-2012 End: 06-27-2012 Patient encounter Laura Rodriguez [facility] Start: 06-26-2012 End: 06-27-2012 Laura Rodriguez DO Work Phone: [facility] Start: 06-25-2012 End: 06-27-2012 Patient encounter Laura Rodriguez [facility] Start: 06-25-2012 End: 06-27-2012 Laura Rodriguez DO Work Phone: [facility] Start: 06-24-2012 End: 06-24-2012 Patient encounter Laura Rodriguez [facility] Start: 06-24-2012 End: 06-24-2012 Laura Rodriguez DO Work Phone: [facility] Start: 06-19-2012 End: 06-19-2012 Office outpatient visit 25 minutes Laura Rodriguez [facility] Start: 06-18-2012 End: 06-23-2012 Patient encounter Laura Rodriguez [facility] Start: 06-18-2012 End: 06-23-2012 Laura Rodriguez DO Work Phone: [facility] Start: 06-17-2012 End: 06-17-2012 Patient encounter Laura Rodriguez [facility] Start: 06-17-2012 End: 06-17-2012 Laura Rodriguez DO Work Phone: [facility] Start: 06-12-2012 End: 06-12-2012 Office outpatient visit 25 minutes Laura Rodriguez [facility] Start: 06-11-2012 End: 06-11-2012 Office outpatient visit 25 minutes Laura Rodriguez [facility] Start: 06-10-2012 End: 06-10-2012 Office outpatient visit 40 minutes Laura Rodriguez [facility] Start: 11-09-2011 End: 11-09-2011 Patient encounter Laura Rodriguez [facility] Start: 11-09-2011 End: 11-09-2011 Laura Rodriguez DO Work Phone: [facility] Start: 09-21-2011 End: 09-21-2011 Patient encounter Laura Rodriguez [facility] Start: 09-21-2011 End: 09-21-2011 Lauralc Rodriguez DO Work Phone: [facility] Start: 08-30-2011 End: 08-31-2011 Patient encounter Laura Rodriguez [facility] Start: 08-30-2011 End: 08-31-2011 Laura Rodriguez DO Work Phone: [facility] Start: 03-03-2011 End: 03-03-2011 Patient encounter Laura Rodriguez [facility] Start: 03-03-2011 End: 03-03-2011 Laura Rodriguez DO Work Phone: [facility] Start: 06-29-2009 End: 06-29-2009 Patient encounter Laura Rodriguez [facility] Start: 06-29-2009 End: 06-29-2009 Laura Rodriguez DO Work Phone: [facility] Start: 05-18-2008 End: 05-18-2008 Historical Summary Laura Rodriguez [facility] Start: 05-18-2008 End: 05-18-2008 Laura Rodriguez DO Work Phone: [facility] Start: 02-25-2008 End: 02-25-2008 Patient encounter Laura Rodriguez [facility] Start: 02-25-2008 End: 02-25-2008 Laura Rodriguez DO Work Phone: [facility] Start: 01-28-2008 End: 01-28-2008 Historical Summary Laura Rodriguez [facility] Start: 01-28-2008 End: 01-28-2008 Laura Rodriguez DO Work Phone: [facility] Start: 03-15-2007 End: 03-15-2007 Patient encounter Laura Rodriguez [facility] Start: 03-15-2007 End: 03-15-2007 Laura Rodriguez DO Work Phone: [facility] Start: 01-25-2007 End: 01-25-2007 Patient encounter Laura Rodriguez [facility] Start: 01-25-2007 End: 01-25-2007 Laura Rodriguez DO Work Phone: [facility] Start: 10-31-2006 End: 10-31-2006 Patient encounter Laura Rodriguez [facility] Start: 10-31-2006 End: 10-31-2006 Laura Rodriguez DO Work Phone: [facility] Start: 10-29-2006 End: 10-29-2006 Phone Encounter Laura Rodriguez [facility] Start: 10-29-2006 End: 10-29-2006 Laura Rodriguez DO Work Phone: [facility] Start: 10-09-2006 End: 10-09-2006 Patient encounter Laura Rodriguez [facility] Start: 10-09-2006 End: 10-09-2006 Laura Rodriguez DO Work Phone: [facility] Start: 06-20-2006 End: 06-25-2006 Office outpatient visit 25 minutes Laura Rodriguez [facility] Start: 06-11-2006 End: 06-11-2006 Nursing evaluation of patient and report Laura Rodriguez [facility] Start: 06-11-2006 End: 06-11-2006 Laura Rodriguez DO Work Phone: [facility] Start: 05-31-2006 End: 05-31-2006 Office outpatient visit 40 minutes Laura Rodriguez [facility] Start: 04-21-2006 End: 04-23-2006 Patient encounter Laura Rodriguez [facility] Start: 04-21-2006 End: 04-23-2006 Laura Rodriguez DO Work Phone: [facility] Start: 04-19-2006 End: 04-19-2006 Historical Summary Laura Rodriguez [facility] Start: 04-19-2006 End: 04-19-2006 Laura Rodriguez DO Work Phone: [facility] Start: 04-17-2006 End: 04-18-2006 Patient encounter Laura Rodriguez [facility] Start: 04-17-2006 End: 04-18-2006 Laura Rodriguez DO Work Phone: [facility] Patient encounter procedure Rosie Chandali [facility] Work Phone: Patient encounter procedure Melissa Gravius [facility] Work Phone: Procedures Date Procedure Procedure Detail Performing Clinician Start: 09-18-[address] Measurement of [address] Laura Rodriguez DO Work Phone: Comment on above: GFR Calc Start: 01-04-2023 End: 01-04-2023 Procedure Note: See Note; NOTES: [facility] [address] [place] [address] Pacemaker Check Date of Service: 01/04/23 1339 MR#: [id number] Acct: [id number] Name: REMY BLACKBURN W Rep #: [id number] : 1940 From: Danielle Rendon Age/Sex: 82/M Location: [facility] [place] [facility] Status: Signed Billing Codes MICRA: PM Dev Interrogate (Remot Assessment and Plan Assessment and Plan (1) Sick sinus syndrome: Status: Acute (2) Persistent atrial fibrillation: Status: Chronic (3) History of placement of leadless cardiac pacemaker: Status: Acute 01/04/23 1345 <Electronically signed by Danielle Rendon > Date Danielle Dillon Signature: Date (if applicable) CC: Laura Rodriguez DO Work Phone: Start: 12-06-2022 End: 12-06-2022 Procedure Note: See Note; NOTES: [facility] [address] [place], [place] [id number] Pacemaker Check Date of Service: 12/06/22 1832 MR#: [id number] Acct: [id number] Name: REMY BLACKBURN W Rep #: [id number] : 1940 From: Danielle Rendon Age/Sex: 82/M Location: [facility] [place] Status: Signed Billing Codes MICRA: PM Dev Interrogate (Remot Assessment and Plan Assessment and Plan (1) Persistent atrial fibrillation: Status: Chronic (2) Sick sinus syndrome: Status: Acute (3) Chronic diastolic (congestive) heart failure: Status: Chronic (4) History of placement of leadless cardiac pacemaker: Status: Acute 12/06/22 1836 <Electronically signed by Danielle Rendon > Date Danielle Mcnealignro Signature: Date (if applicable) CC: Laura Shiva DO Work Phone: Start: 09-21-2022 End: 09-21-2022 Procedure Note: See Note; NOTES: [facility] [address] [place] [address] OFFICE VISIT Date of Service: 09/21/22 MR#: [id number] Acct: [id number] Name: REMY BLACKBURN Rep #: [id number] : 1940 Provider: Dr. Benito Diaz MD Age/Sex: 82/M Location: [facility] [place] [facility] Status: Signed HPI HPI History of Present Illness Details: REMY BLACKBURN, is a 82 M who presents to the office today for a cardiovascular followup. He has a history of coronary artery disease with bypass surgery in 2000. He did have a left internal mammary artery to the left anterior descending artery and diagonal as a sequential graft, radial graft to the obtuse marginal branch, and saphenous vein graft to the right coronary artery. He also has a history of hypertension, hyperlipidemia, left carotid stenosis estimated at 50 to 70%. He presents for follow-up visit. The patient had evidence of paroxysmal atrial fibrillation with significant pauses noted his beta-loly was discontinued and he had placement of a Micra device in March 2021. He says that he feels more energetic at this time. He denies chest, arm, jaw, or neck discomfort. He continues with shortness of breath with exertion. He does not feel this to be worsening. This is most noted when carrying something. He denies symptoms of shortness of breath at rest, orthopnea, PND, sudden weight gain, or bilateral lower extremity edema. He denies chronic cough. He denies palpitations, lightheadedness, near syncope, or syncopal episodes. He states dizziness with position changes. He denies claudication issues. He denies fever or chills. He denies blood in urine, blood in stool, or epistaxis. He denies myalgia. He denies unexplainable fatigue. His exercise tolerance is stable. 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 Accompanied by: None Is patient in pain?: No Allergies No Known Allergies Allergy (Verified 09/21/22 14:55) Medications aspirin 81 mg chewable tablet 81 mg PO DAILY@0800 04/18/14 [History Confirmed 09/21/22] nitroglycerin 0.4 mg sublingual tablet 0.4 mg sublingual Q5M PRN Chest Pain 04/18/14 [History Confirmed 09/21/22] dutasteride 0.5 mg capsule 0.5 mg PO DAILY 04/16/18 [History Confirmed 09/21/22] pravastatin 80 mg tablet 80 mg PO QHS #90 tabs 02/20/20 [Rx Confirmed 09/21/22] cholecalciferol (vitamin D3) 25 mcg (1,000 unit) capsule 25 mcg PO DAILY 01/05/22 [History Confirmed 09/21/22] apixaban 5 mg tablet (Eliquis) 5 mg PO BID #60 tabs 02/13/22 [Rx Confirmed 09/21/22] esomeprazole magnesium 40 mg capsule,delayed release 40 mg PO DAILY #90 caps 03/20/22 [Rx Confirmed 09/21/22] hydrochlorothiazide 25 mg tablet 25 mg PO DAILY #90 tabs 03/20/22 [Rx Confirmed 09/21/22] losartan 100 mg tablet 100 mg PO DAILY #90 tabs 09/11/22 [Rx Confirmed 09/21/22] Ejection fraction %: 55 to 59 PFSH Medical History Atherosclerosis of coronary artery of [place] without angina pectoris Chronic diastolic (congestive) heart failure Dizziness and giddiness Dyspnea on exertion Edema Essential (primary) hypertension Left foot infection Non-rheumatic tricuspid valve insufficiency 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 Persistent atrial fibrillation Pulmonary embolism Pure hypercholesterolemia Secondary pulmonary arterial hypertension Shortness of breath Sick sinus syndrome Sinus pause Stenosis of left carotid artery TIA (transient ischemic attack) Tick bite of abdominal wall (11/28/21) Surgical History H/O coronary artery bypass surgery (06/2001) History of hip replacement History of placement of leadless cardiac pacemaker History of skin graft 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 Family History Father CAD (coronary artery disease) Mother CAD (coronary artery disease) Brother CAD (coronary artery disease) Social History Smoking Status: Never smoker alcohol intake: never substance use type: does not use caffeine: Yes Type: coffee Number of servings: 2 ROS Const Const: Negative for fatigue, weakness, headache(s), frequent falls, difficulty sleeping or excessive sweating Eyes Eyes: Negative for loss of peripheral vision, transient loss of vision, blurry vision, double vision or tunnel vision ENT ENT: Negative for headache(s), dizziness, Nosebleed/epistaxis or balance problems Cardio Chest Pain: No Palpitations: No Edema: None Muscle aches with walking: None Resp Respiratory: Negative for SOB with activity, SOB at rest, SOB orthopnea SOB lying down, Cough or paroxysmal nocturnal dyspnea GI GI: Negative nausea, vomiting or heartburn : Negative for hematuria Musc Musc: Negative for muscle aches/ myalgia, muscle weakness, joint pain or balance problems Skin Skin: Negative non-healing lesions, rash or unusual bruising Neuro Neuro: Negative for dizziness, lightheadedness, near syncope, syncope, orthostatic symptoms, frequent falls, headache(s), weakness, confusion, memory loss, blurry vision, double vision, vertigo or lack of coordination Emmanuel Hematologic/Lymphatic: Negative for easy bleeding or easy bruising Endo Endo: Negative for fatigue, excessive sweating, flushing or increased thirst/drinking Psych Psych: Negative for anxiety or depression Allergy Allergy/Immunology: Negative for hives and Negative for rash Cardiology Exam Const Appearance: cooperative, healthy appearing, no acute distress, well developed and well groomed Nutritional Appearance: average body habitus and well nourished Orientation: alert, awake and oriented x3 Head Head: normal to inspection, normocephalic and atraumatic Ears: hearing grossly normal bilaterally and external ears normal Nose: external nose normal, nares normal, nasal mucous membranes and turbinates normal, septum normal and no nasal discharge Face and Sinus: face symmetric Mouth: oral mucosae normal, tongue normal, oropharynx normal and moist mucous membranes Teeth and gingiva: dentition normal Throat: posterior oropharynx normal, tonsils normal and uvula midline Eyes General: appearance normal, both eyes and all related structures Eyelids: eyelids normal Conjunctivae: conjunctivae normal Pupils: PERRL, normal by confrontation and accommodation normal EOM: EOM intact bilaterally Neck Neck: normal visual inspection, trachea midline and no JVD JVD: +5 Carotids: normal carotid upstroke and bounding pulses Chest Chest inspection: normal inspection of the chest, symmetric chest movement and normal respiratory effort Auscultation: Bilateral: Clear to Auscultation Cardio Palpation: normal PMI Rate: regular rate Rhythm: regular rhythm Heart sounds: S1 normal, S2 normal, murmur and normal, physiologic split S2; Negative rub or gallop Murmur: Grade 2/6, early systolic and LLSB GI GI: normal to inspection, soft, no hepatosplenomegaly and bowel sounds present Neuro General: patient alert, patient awake, patient oriented x3, gait normal, moves all extremities and no focal sensory deficit Skin Skin: no rashes or lesions noted Extremities Pulses: Normal: Right Femoral Pulse, Left Femoral Pulse, Right Dorsalis Pedis Pulse, Left Dorsalis Pedis Pulse, Right Posterior Tibial Pulse, Left Posterior Tibial Pulse, Right Radial Pulse and Left Radial Pulse Lower Extremity Edema: None: Bilateral Musculoskel Musculoskeletal: No joint tenderness Psych Psychological: normal affect Supplemental Info Supplemental Information ECHOCARDIOGRAM 10/12/2020: Interpretation Summary Normal LV size. Left ventricular systolic function is normal. The estimated ejection fraction is 55 %. Mean aortic valve gradient 16 mmHg. Mild (1+) eccentric aortic valve insufficiency. Calculated aortic valve area (continuity equation) is 1.6 cm2. The left atrium is mildly enlarged. PHARMACOLOGICAL STRESS TEST 01/13/2021: Conclusion: Normal pharmacologic myocardial perfusion stress test. Preserved ejection fraction. Atrial fibrillation. CAROTID DUPLEX ULTRA SOUND 01/13/2021: Interpretation Summary Mild (<50%) stenosis right extracranial internal carotid. Moderate (50-69%) stenosis left extracranial internal carotid. Flow within the vertebral arteries is antegrade bilaterally. Labs: No Data to Display Diagnostics: Pacemaker Check Venous Doppler Study Pulmonary: No Data to Display Assessment and Plan Assessment and Plan (1) History of placement of leadless cardiac pacemaker: Status: Acute Plan: And has a history of a leadless pacemaker. The plan is to continue the current medical therapy. He will continue to follow-up in device clinic as well. 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 My recommendation is to continue the current medical therapy. The mean gradient at the last echocardiogram in September 2020 was 16. (3) Persistent atrial fibrillation: Status: Chronic Plan: He does have persistent atrial fibrillation with a controlled ventricular response rate. We will continue with the same without making any changes. (4) H/O coronary artery bypass surgery: Status: Resolved Comment: CABG x 4 Sequential ARREAGA to LAD and D1, radial graft to OM1, SVG to RCA 06/2001 Plan: He is status post coronary bypass surgery. He continues to do well with no changes. Thank you for allowing me to participate in the care of your patient. Please don't hesitate to call if any issues arise. Plan Details Follow Up: 8 Months (jhr) Coding Level of Care Code Off vis,est,level 3 Diagnoses History of placement of leadless cardiac pacemaker Z95.0 Nonrheumatic aortic (valve) stenosis with insufficiency I35.2 Persistent atrial fibrillation I48.19 H/O coronary artery bypass surgery Z95.1 Coding Level of Care Code Off vis,est,level 3 Diagnoses History of placement of leadless cardiac pacemaker Z95.0 Nonrheumatic aortic (valve) stenosis with insufficiency I35.2 Persistent atrial fibrillation I48.19 H/O coronary artery bypass surgery Z95.1 09/21/22 1546 <Electronically signed by Benito Diaz MD> Date Benito Diaz MD Cosigner Signature: Date (if applicable) CC: Dr. Laura Rodriguez, DO Laura Rodriguez DO Work Phone: Start: 07-26-2022 End: 09-05-2022 Procedure Note: See Note; NOTES: [facility] [address] [place] [address] Pacemaker Check Date of Service: 07/26/22 1405 MR#: [id number] Acct: [id number] Name: REMY BLACKBURN Rep #: [id number] : 1940 From: Danielle Rendon Age/Sex: 82/M Location: [facility] [place] Status: Signed Billing Codes MICRA: PM Dev Interrogate (Remot Assessment and Plan Assessment and Plan (1) Sick sinus syndrome: Status: Acute (2) Sinus pause: Status: Acute (3) History of placement of leadless cardiac pacemaker: Status: Acute (4) Persistent atrial fibrillation: Status: Chronic 09/05/22 1406 <Electronically signed by Danielle Rendon > Date Danielle Dillon Signature: Date (if applicable) CC: Laura Rodriguez DO Work Phone: Start: 05-19-2022 End: 05-20-2022 Procedure Note: See Note; NOTES: [facility] [place] [address] Venous Duplex US, Unilateral 05/19/22 1056 MR#: [id number] Acct: [id number] Name: REMY BLACKBURN Rep #: [id number] : 1940 81 From: Marcelo Ochoa MD Attending Dr: Dr. Cait Calderón, DPM Status: REG CLI Ordering Dr: Cait Calderón DPM Date: 05/19/22 Location: [facility] Sex: M C Admitted: Reason For Study: LEG PAIN RIGHT LEFT CFV is compressible, spontaneous, competent GSV is normal. and demonstrates pulsatile venous flow. CFV is compressible, spontaneous, competent, Procedure and demonstrates pulsatile venous flow. This is a venous duplex using B-mode, color FV is compressible, spontaneous, phasic, flow and spectral Doppler. competent and demonstrates normal Exam performed in department. augmentation. The exam was diagnostic. POP V is compressible, spontaneous, phasic, A preliminary report was called and/or faxed competent and demonstrates normal to Dr. Goodwin office. augmentation. T/P Trunk is compressible. PTV is compressible. LT PerV is compressible. VL/Venous Duplex US, Unilateral Interpretation Summary Deep veins of the left lower extremity are patent and compressible segmentally. There is no evidence of left lower extremity deep vein thrombosis. Valvular competence appears intact within the proximal deep venous system on the left . The left great saphenous vein appears patent and compressible segmentally. Pulsatile flow is noted in the deep venous system bilaterally, which may be indicative of elevated central venous pressure (i.e. congestive heart failure, pulmonary hypertension, etc.). Clinical correlation is advised. Ordering Physician: Cait Calderón Referring Physician: Laura Rodriguez M.D. Performed By: Gilles Paula, JOSEPHINET 05/20/222158 Date Marcelo Ochoa MD CC: DPM Dr. Cait Calderón; Dr. Laura Rodriguez, DO Date Dictated: 05/19/22 1056 Date Transcribed: 05/20/222158 Plumber And Tinner: Signed Laura Rodriguez DO Work Phone: Start: 05-04-2022 End: 05-04-2022 Procedure Note: See Note; NOTES: [facility] [address] [place] [address] Foot min 3 Views MR#: [id number] Acct: [id number] Name: REMY BLACKBURN Rep #: [id number] : 1940 M 81 From: Brian Perea MD PCP: Dr. Laura Rodriguez, DO Status: DEP AMB Study: Foot min 3 Views Date of Exam: 05/04/22 Exam# [id number] Ordering Dr: Cait Calderón DPM STUDY: WEIGHT-BEARING LEFT FOOT X-RAY SERIES OF 1049 HOURS ON 05/04/2022 CLINICAL: 81-year-old male with left foot pain. TECHNIQUE: 3 view(s) of the foot, weight-bearing. COMPARISON: None. FINDINGS: There are no fractures or dislocations. There are no arthritic or degenerative changes. There is mild flattening of the pedal arch. There are small calcaneal and Achilles spurs. There are minimal hammertoe deformities of the third through fifth toes. The surrounding soft tissues are normal. RAD/Foot min 3 Views IMPRESSION: 1. No fractures or dislocations. 2. No arthritic or degenerative changes. 3. Minimal hammertoe deformities third through fifth toes. 4. Mild flattening of the pedal arch. 5. Small calcaneal and Achilles spurs. Electronically Signed: Brian Perea MD at 17:14 EDT , CC: DPRegi Calderón; Dr. Laura Rodriguez DO Plumber And Tinner: Signed Laura Rodriguez DO Work Phone: Start: 04-19-2022 End: 05-05-2022 Procedure Note: See Note; NOTES: [facility] [address] [place] [address]. [address] [place] [address] Pacemaker Check Date of Service: 04/19/22 1007 MR#: [id number] Acct: [id number] Name: REMY BLACKBURN Rep #: [id number] : 1940 From: Danielle Rendon Age/Sex: 81/M Location: [facility] [place] Status: Signed Billing Codes MICRA: PM Dev Interrogate (Remot Assessment and Plan Assessment and Plan (1) History of placement of leadless cardiac pacemaker: Status: Acute (2) Sick sinus syndrome: Status: Acute (3) Sinus pause: Status: Acute 05/05/22 1008 <Electronically signed by Danielle Rendon > Date Danielle Mcnealignro Signature: Date (if applicable) CC: Laura Rodriguez DO Work Phone: Start: 03-28-2022 End: 03-28-2022 Procedure Note: See Note; NOTES: [facility] [address] [place] [address] Foot min 3 Views MR#: [id number] Acct: [id number] Name: REMY BLACKBURN Rep #: [id number] : 1940 M 81 From: Juan Manuel hutchins MD PCP: Dr. Laura Rodriguez DO Status: DEP AMB Study: Foot min 3 Views Date of Exam: 03/28/22 Exam# [id number] Ordering Dr: Miko Castellano STUDY: X-RAY - LEFT FOOT CLINICAL: Male, 81 years old. Concern for osteomyelitis TECHNIQUE: 3 view(s) of the foot. COMPARISON: Comparison is made with prior study 06/05/2012. FINDINGS: Calcaneal spurs. Normal visualized subtalar, talonavicular, calcaneocuboid, tarsal and tarsometatarsal articulations. Normal metatarsi. Normal metatarsophalangeal joint of the great toe. Normal tibial and fibular sesamoid bones. Normal interphalangeal joint of the great toe. Normal phalanges of the great toe. Normal second through fifth metatarsophalangeal joints. Normal interphalangeal joints and phalanges of the lesser toes. Soft tissue swelling. RAD/Foot min 3 Views IMPRESSION: Soft tissue swelling. Calcaneal spurs. Electronically Signed: Juan Manuel Bhat MD at 12:48 EDT Reading Location ID and State: [address] [place] [address] , Service support , CC: CONNOR Castellano; Dr. Laura Rodriguez DO Plumber And Tinner: Signed Laura Rodriguez DO Work Phone: Start: 03-28-2022 End: 03-28-2022 Procedure Note: See Note; NOTES: [address] [place] [address] OFFICE VISIT Date of Service: 03/28/22 MR#: [id number] Acct: [id number] Name: REMY BLACKBURN Rep #: [id number] : 1940 Provider: CONNOR Castellano Age/Sex: 81/M Location: [facility] [place] Status: Signed Intake Vital Signs 03/28/22 12:07 BP 140/70 H Blood Pressure Location Lt brachial Position Sitting Respiration 17 Pulse 76 Pulse Source Monitor Temp 97.5 F L Temp Source Temporal Pulse Oximetry (%) 96 Oxygen Delivery Method room air Intake Visit Reasons: LEFT FOOT PAIN/CONCERN FOR INFECTION Allergies No Known Allergies Allergy (Verified 03/28/22 12:07) Medications aspirin 81 mg chewable tablet 81 mg PO DAILY@0800 04/18/14 [History Confirmed 03/28/22] nitroglycerin 0.4 mg sublingual tablet 0.4 mg sublingual Q5M PRN Chest Pain 04/18/14 [History Confirmed 03/28/22] dutasteride 0.5 mg capsule 0.5 mg PO DAILY 04/16/18 [History Confirmed 03/28/22] pravastatin 80 mg tablet 80 mg PO QHS #90 tabs 02/20/20 [Rx Confirmed 03/28/22] losartan 100 mg tablet 100 mg PO DAILY #90 tabs 08/29/21 [Rx Confirmed 03/28/22] cholecalciferol (vitamin D3) 25 mcg (1,000 unit) capsule 25 mcg PO DAILY 01/05/22 [History Confirmed 03/28/22] apixaban 5 mg tablet (Eliquis) 5 mg PO BID #60 tabs 02/13/22 [Rx Confirmed 03/28/22] esomeprazole magnesium 40 mg capsule,delayed release 40 mg PO DAILY #90 caps 03/20/22 [Rx Confirmed 03/28/22] hydrochlorothiazide 25 mg tablet 25 mg PO DAILY #90 tabs 03/20/22 [Rx Confirmed 03/28/22] amoxicillin 875 mg-potassium clavulanate 125 mg tablet 1 tab PO Q12H 10 days #20 tabs 03/28/22 [Rx Confirmed 03/28/22] PFSH Medical History Atherosclerosis of coronary artery of [place] heart without angina pectoris Chronic diastolic (congestive) heart failure Dizziness and giddiness Dyspnea on exertion Edema Essential (primary) hypertension 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 Persistent atrial fibrillation Pulmonary embolism Pure hypercholesterolemia Secondary pulmonary arterial hypertension Shortness of breath Sick sinus syndrome Stenosis of left carotid artery TIA (transient ischemic attack) Tick bite of abdominal wall (11/28/21) Surgical History H/O coronary artery bypass surgery (06/2001) History of hip replacement History of placement of leadless cardiac pacemaker History of skin graft 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 Patient states that approximate 1 month ago he did have a burn with infection to the left foot and was placed on antibiotic and the symptoms seem to have gotten better however over the past several weeks he has noticed more swelling again. He denies numbness, tingling or loss range of motion. He does state that he also had a blister to the left great toe which has since resolved. He has had no fever, chills, sweats. No nausea, vomiting, diarrhea. No loss of taste or smell. No other associated symptoms or alleviating/aggravating factors. ROS Const Constitutional: No other (6 system ROS completed with pertinent findings in the HPI otherwise normal.) Exam Const General: cooperative and healthy appearing Resp Effort Inspection: normal respiratory effort Cardio Rate: regular rate Skin General: no rashes or lesions noted Neuro General: patient alert Extrem General: full ROM and capillary refill normal Other: Moderate soft tissue swelling to the top of the left foot and toes with very minimal erythema. No sign of the burn wound or blister. Appropriate sensation to light touch distally and appropriate strength and range of motion throughout. Psych Appearance: grossly normal Mental Status: mental status grossly normal Coding Level of Care Code Off vis,new,level 4 Diagnoses Left foot infection L08.9 Assessment and Plan Assessment and Plan (1) Left foot infection: Status: Acute Plan: X-ray of the left foot read interval myself finding no acute osseous abnormalities or signs of osteomyelitis, awaiting radiology interpretation at time of patient discharge. Augmentin as prescribed today. Encouraged to get plenty of rest, drink lots of clear liquids, and use Tylenol or Ibuprofen (unless contraindicated) for comfort. Patient also educated on other sympt omatic management techniques. To be seen in 7-10 days by his PCP if no improvement; sooner if worsening of symptoms. Orders: Orders Foot min 3 Views Today L08.9 - Local infection of the skin and subcutaneous tissue, unspecified Medications: New amoxicillin-pot clavulanate 875-125 mg 1 TAB PO Q12H 10 days 20 tabs 0RF J01.90 - Acute sinusitis, unspecified 03/28/22 1330 <Electronically signed by Miko RYAN> Date Miko RYAN Cosigner Signature: Date (if applicable) CC: Laura Rodriguez DO Work Phone: Start: 01-24-2022 End: 01-24-2022 Procedure Note: See Note; NOTES: [facility] [address] [place] [address]. [address] [place], [place] [id number] Pacemaker Check Date of Service: 01/24/221805 MR#: [id number] Acct: [id number] Name: REMY BLACKBURN Rep #: [id number] : 1940 From: Danielle Rendon Age/Sex: 81/M Location: [facility] [place] Status: Signed Billing Codes MICRA: PM Dev Interrogate (Remot Assessment and Plan Assessment and Plan (1) History of placement of leadless cardiac pacemaker: Status: Acute (2) Persistent atrial fibrillation: Status: Chronic (3) Sick sinus syndrome: Status: Acute (4) Sinus pause: Status: Acute 01/24/221806 <Electronically signed by Danielle Rendon > Date Danielle Rendon Cosigner Signature: Date (if applicable) CC: Laura Rodriguez DO Work Phone: Start: 01-05-2022 End: 01-05-2022 Procedure Note: See Note; NOTES: [facility] [address] [place] [address]. [address] [place] [address] OFFICE VISIT Date of Service: 01/05/22 MR#: [id number] Acct: [id number] Name: REMY BLACKBURN Rep #: [id number] : 1940 Provider: Dr. Benito Diaz MD Age/Sex: 81/M Location: [facility] [place] Status: Signed HPI HPI History of Present Illness Details: REMY BLACKBURN, is a 81 M who presents to the office today for a cardiovascular followup. He has a history of coronary artery disease with bypass surgery in 2000. He did have a left internal mammary artery to the left anterior descending artery and diagonal as a sequential graft, radial graft to the obtuse marginal branch, and saphenous vein graft to the right coronary artery. He also has a history of hypertension, hyperlipidemia, left carotid stenosis estimated at 50 to 70%. He presents for follow-up visit. The patient had evidence of paroxysmal atrial fibrillation with significant pauses noted his beta-loly was discontinued and he had placement of a Micra device in March 2021. He says that he feels more energetic at this time. He denies chest, arm, jaw, or neck discomfort. He continues with shortness of breath with exertion. He does not feel this to be worsening. This is most noted when carrying something. He denies symptoms of shortness of breath at rest, orthopnea, PND, sudden weight gain, or bilateral lower extremity edema. He denies chronic cough. He denies palpitations, lightheadedness, near syncope, or syncopal episodes. He states dizziness with position changes. He denies claudication issues. He denies fever or chills. He denies blood in urine, blood in stool, or epistaxis. He denies myalgia. He denies unexplainable fatigue. His exercise tolerance is stable. Intake Vital Signs 01/05/22 13:30 Height 6 ft Weight: 192 lb BMI 26.0 BP 146/75 H Respiration 16 Pulse 76 Pulse Oximetry (%) 97 Intake Visit Reasons: 6 M FU Allergies No Known Allergies Allergy (Verified 01/05/22 13:30) Medications aspirin 81 mg PO DAILY@0800 04/18/14 [History Confirmed 01/05/22] nitroglycerin 0.4 mg SUBLINGUAL Q5M PRN 04/18/14 [History Confirmed 01/05/22] dutasteride 0.5 mg capsule 0.5 mg PO DAILY 04/16/18 [History Confirmed 01/05/22] pravastatin 80 mg tablet 80 mg PO QHS #90 tab 02/20/20 [Rx Confirmed 01/05/22] apixaban 5 mg tablet 5 mg PO BID #60 tab 02/07/21 [Rx Confirmed 01/05/22] hydrochlorothiazide 25 mg tablet 25 mg PO DAILY #90 tab 03/07/21 [Rx Confirmed 01/05/22] esomeprazole magnesium 40 mg capsule,delayed release 40 mg PO DAILY #90 cap 03/14/21 [Rx Confirmed 01/05/22] losartan 100 mg tablet 100 mg PO DAILY #90 tab 08/29/21 [Rx Confirmed 01/05/22] cholecalciferol (vitamin D3) 25 mcg (1,000 unit) capsule 25 mcg PO DAILY 01/05/22 [History Confirmed 01/05/22] Ejection fraction %: 55 to 59 PFSH Medical History Atherosclerosis of coronary artery of [place] heart without angina pectoris Chronic diastolic (congestive) heart failure Dizziness and giddiness Dyspnea on exertion Edema Essential (primary) hypertension 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 Persistent atrial fibrillation Pulmonary embolism Pure hypercholesterolemia Secondary pulmonary arterial hypertension Shortness of breath Sick sinus syndrome Stenosis of left carotid artery TIA (transient ischemic attack) Tick bite of abdominal wall (11/28/21) Surgical History H/O coronary artery bypass surgery (06/2001) History of hip replacement History of placement of leadless cardiac pacemaker History of skin graft 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 Family History Father CAD (coronary artery disease) Mother CAD (coronary artery disease) Brother CAD (coronary artery disease) Social History Smoking Status: Never smoker alcohol intake: never substance use type: does not use caffeine: Yes Type: coffee Number of servings: 2 ROS Const Const: Negative for fatigue, weakness, headache(s), frequent falls, difficulty sleeping or excessive sweating Eyes Eyes: Negative for loss of peripheral vision, transient loss of vision, blurry vision, double vision or tunnel vision ENT ENT: Negative for headache(s), dizziness, Nosebleed/epistaxis or balance problems Cardio Chest Pain: No Palpitations: No Edema: None Muscle aches with walking: None Resp Respiratory: Negative for SOB with activity, SOB at rest, SOB orthopnea SOB lying down, Cough or paroxysmal nocturnal dyspnea GI GI: Negative nausea, vomiting, heartburn or black,tarry stools : Negative for hematuria Musc Musc: Negative for muscle aches/ myalgia, muscle weakness, joint pain or balance problems Skin Skin: Negative non-healing lesions, rash or unusual bruising Neuro Neuro: Negative for dizziness, lightheadedness, near syncope, syncope, orthostatic symptoms, frequent falls, headache(s), weakness, blurry vision, double vision or lack of coordination Emmanuel Hematologic/Lymphatic: Negative for easy bleeding or easy bruising Endo Endo: Negative for fatigue, excessive sweating or increased thirst/drinking Psych Psych: Negative for anxiety or depression Allergy Allergy/Immunology: Negative for hives and Negative for rash Cardiology Exam Const Appearance: cooperative, healthy appearing, no acute distress, well developed and well groomed Nutritional Appearance: average body habitus and well nourished Orientation: alert, awake and oriented x3 Head Head: normal to inspection, normocephalic and atraumatic Ears: hearing grossly normal bilaterally and external ears normal Nose: external nose normal, nares normal, nasal mucous membranes and turbinates normal, septum normal and no nasal discharge Face and Sinus: face symmetric Mouth: oral mucosae normal, tongue normal, oropharynx normal and moist mucous membranes Teeth and gingiva: dentition normal Throat: posterior oropharynx normal, tonsils normal and uvula midline Eyes General: appearance normal, both eyes and all related structures Eyelids: eyelids normal Conjunctivae: conjunctivae normal Pupils: PERRL, normal by confrontation and accommodation normal EOM: EOM intact bilaterally Neck Neck: normal visual inspection, trachea midline and no JVD JVD: +5 Carotids: normal carotid upstroke and bounding pulses Chest Chest inspection: normal inspection of the chest, symmetric chest movement and normal respiratory effort Auscultation: Bilateral: Clear to Auscultation Cardio Palpation: normal PMI Rate: regular rate Rhythm: regular rhythm Heart sounds: S1 normal, S2 normal, murmur and normal, physiologic split S2; Negative rub or gallop Murmur: Grade 2/6, early systolic and LLSB GI GI: normal to inspection, soft, no hepatosplenomegaly and bowel sounds present Neuro General: patient alert, patient awake, patient oriented x3, gait normal, moves all extremities and no focal sensory deficit Skin Skin: no rashes or lesions noted Extremities Pulses: Normal: Right Femoral Pulse, Left Femoral Pulse, Right Dorsalis Pedis Pulse, Left Dorsalis Pedis Pulse, Right Posterior Tibial Pulse, Left Posterior Tibial Pulse, Right Radial Pulse and Left Radial Pulse Lower Extremity Edema: None: Bilateral Musculoskel Musculoskeletal: No joint tenderness Psych Psychological: normal affect Supplemental Info Supplemental Information ECHOCARDIOGRAM 10/12/2020: Interpretation Summary Normal LV size. Left ventricular systolic function is normal. The estimated ejection fraction is 55 %. Mean aortic valve gradient 16 mmHg. Mild (1+) eccentric aortic valve insufficiency. Calculated aortic valve area (continuity equation) is 1.6 cm2. The left atrium is mildly enlarged. PHARMACOLOGICAL STRESS TEST 01/13/2021: Conclusion: Normal pharmacologic myocardial perfusion stress test. Preserved ejection fraction. Atrial fibrillation. CAROTID DUPLEX ULTRA SOUND 01/13/2021: Interpretation Summary Mild (<50%) stenosis right extracranial internal carotid. Moderate (50-69%) stenosis left extracranial internal carotid. Flow within the vertebral arteries is antegrade bilaterally. Labs: No Data to Display Diagnostics: Pacemaker Check Chest X-Ray Pulmonary: No Data to Display Assessment and Plan Assessment and Plan (1) H/O coronary artery bypass surgery: Status: Resolved Comment: CABG x 4 Sequential ARREAGA to LAD and D1, radial graft to OM1, SVG to RCA 06/2001 Plan - Dr. Benito Diaz MD: Status post coronary artery bypass surgery. He continues to do well he has not had any angina and his last stress test from December 2020 demonstrated no evidence of ischemia. No medical changes will be made. (2) Nonrheumatic aortic (valve) stenosis with insufficiency: Status: Chronic Plan - Dr. Benito Diaz MD: He does have a history of aortic valve stenosis which is mild his peak mean gradient is 22 over 16 mmHg with a valve area of 1.6 cm??? and mild aortic regurgitation. His ejection fraction is preserved. I would not make any changes with regard to the above. (3) Essential (primary) hypertension: Status: Chronic Plan - Dr. Benito Diaz MD: His blood pressure is under excellent control at this time and he should continue to monitor it at home. (4) History of placement of leadless cardiac pacemaker: Status: Acute Plan - Dr. Benito Diaz MD: He does have a history of a leadless pacemaker with a Micra. He is in persistent atrial fibrillation and is V paced 4% of the time. He will continue to follow-up in our device clinic. (5) Pure hypercholesterolemia: Status: Chronic Plan - Dr. Benito Diaz MD: He does have a history of hyperlipidemia. I would not recommend that we make any changes. He will remain on his current dose of statins. Thank you for allowing me to participate in the care of your patient. Please don't hesitate to call if any issues arise. Plan Details Additional Comments: Portions of this documentation were copied and pasted from previous office visit notes to provide a cohesive continuity of the history. The note has been reviewed, edited, and updated, as necessary. Follow Up: 6 Months (jhr) Coding Level of Care Code Off vis,est,level 4 Diagnoses H/O coronary artery bypass surgery Z95.1 Nonrheumatic aortic (valve) stenosis with insufficiency I35.2 Essential (primary) hypertension I10 History of placement of leadless cardiac pacemaker Z95.0 Pure hypercholesterolemia E78.00 Coding Level of Care Code Off vis,est,level 4 Diagnoses H/O coronary artery bypass surgery Z95.1 Nonrheumatic aortic (valve) stenosis with insufficiency I35.2 Essential (primary) hypertension I10 History of placement of leadless cardiac pacemaker Z95.0 Pure hypercholesterolemia E78.00 01/05/22 1519 <Electronically signed by Benito Diaz MD> Date Benito Diaz MD Cosigner Signature: Date (if applicable) CC: Dr. Laura Rodriguez, DO Laura Rodriguez DO Work Phone: Start: 11-28-2021 End: 11-28-2021 Comments: See Note; NOTES: [facility] [address] [place] [address] OFFICE VISIT Date of Service: 11/28/21 MR#: [id number] Acct: [id number] Name: REMY BLACKBURN Rep #: [id number] : 1940 Provider: CONNOR Castellano Age/Sex: 81/M Location: [facility] [place] Status: Signed Intake Vital Signs 11/28/21 14:09 Height 6 ft Weight: 190 lb BMI 25.7 BP 138/74 H Blood Pressure Location Lt brachial Position Sitting Respiration 16 Pulse 80 Pulse Source Monitor Temp 97.7 F L Temp Source Temporal Pulse Oximetry (%) 97 Oxygen Delivery Method room air Intake Visit Reasons: TICK BITE/LEFT FLANK Chief Complaint: Tick bite Allergies No Known Allergies Allergy (Verified 06/28/21 09:42) [facility] Medical History Atherosclerosis of coronary artery of [place] heart without angina pectoris Chronic diastolic (congestive) heart failure Dizziness and giddiness Dyspnea on exertion Edema Essential (primary) hypertension 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 Persistent atrial fibrillation Presence of leadless cardiac pacemaker Pulmonary embolism Pure hypercholesterolemia Secondary pulmonary arterial hypertension Shortness of breath Sick sinus syndrome Stenosis of left carotid artery TIA (transient ischemic attack) Surgical History H/O coronary artery bypass surgery (06/2001) History of hip replacement History of skin graft 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 Patient states this happened 2 days ago however is unaware of when the tick actually was attached. He states that he noticed it while lying in bed 2 nights ago and pulled out himself. Patient denies change in mental status. No fever, chills, sweats. No nausea, vomiting, diarrhea. No other associated symptoms or alleviating/aggravating factors. ROS Const Constitutional: No other (6 system ROS completed with pertinent findings in HPI otherwise normal.) Exam Const General: cooperative and healthy appearing [facility] Head: normocephalic and atraumatic Eyes General: appearance normal, both eyes and all related structures Resp Effort Inspection: normal respiratory effort Auscultation: Bilateral: Clear to Auscultation Cardio Rate: regular rate Rhythm: regular rhythm Skin Other: Small lesion left posterior flank with very minimal surrounding erythema. No induration, extending erythema, warmth or drainage from the site. Neuro General: patient alert and CN's II-XI intact bilaterally Psych Appearance: grossly normal Mental Status: mental status grossly normal Coding Level of Care Code Off vis,new,level 3 Diagnoses Tick bite of abdominal wall S30.861A; W57.XXXA Assessment and Plan Assessment and Plan (1) Tick bite of abdominal wall: Status: Acute Medications: New: doxycycline hyclate 200 mg (2 x 100 mg) PO ONCE 1 day 2 caps 0RF Plan - CONNOR Stewart: Doxycycline as prescribed today for prophylaxis of Lyme disease. Patient advised to follow-up with his PCP in 5 to 7 days if no better or sooner if worse. Patient advised of signs of Lyme disease and when appropriate to report to the ED or to his PCP. Patient verbalized understanding and agreement with all the above. 11/28/21 1426 <Electronically signed by Miko RYAN> Date Miko RYAN Cosigner Signature: Date (if applicable) CC: Laura Rodriguez DO Work Phone: Start: 09-28-2021 End: 09-29-2021 Comments: See Note; NOTES: [facility] [address] [place], [place] [address] Pacemaker Check Date of Service: 09/28/21 1205 MR#: [id number] Acct: [id number] Name: REMY BLACKBURN Rep #: [id number] : 1940 From: Danielle Rendon Age/Sex: 81/M Location: [facility] [place] Status: Signed Billing Codes MICRA: PM Dev Interrogate (Remot Assessment and Plan Assessment and Plan (1) Persistent atrial fibrillation: Status: Chronic (2) Sick sinus syndrome: Status: Acute (3) Sinus pause: Status: Acute (4) Presence of leadless cardiac pacemaker: Status: Acute 09/29/21 1206 <Electronically signed by Danielle Rendon > Date Danielle Hernandezer Signature: Date (if applicable) CC: Laura Rodriguez DO Work Phone: Start: 06-28-2021 End: 06-28-2021 Comments: See Note; NOTES: [facility] [address] [place], [place] [id number] Pacemaker Check Date of Service: 06/28/211807 MR#: [id number] Acct: [id number] Name: REMY BLACKBURN Rep #: [id number] : 1940 From: Danielle Rendon Age/Sex: 81/M Location: [facility] [place] Status: Signed Billing Codes MICRA: PM Dev Prog Eval, Single Assessment and Plan Assessment and Plan (1) Persistent atrial fibrillation: Status: Chronic (2) Sick sinus syndrome: Status: Acute (3) Sinus pause: Status: Acute (4) Presence of leadless cardiac pacemaker: Status: Acute Plan Details Other Medications: Resumed: apixaban (Eliquis) 5 mg PO BID 60 tabs 06/28/211808 <Electronically signed by Danielle Rendon > Date Danielle Dillon Signature: Date (if applicable) CC: Laura Rodriguez DO Work Phone: Start: 06-28-2021 End: 06-28-2021 Comments: See Note; NOTES: [facility] [address] [place], [place] [address] OFFICE VISIT Date of Service: 06/28/21 MR#: [id number] Acct: [id number] Name: REMY BLACKBURN Rep #: [id number] : 1940 Provider: Dr. Benito Diaz MD Age/Sex: 81/M Location[place] [facility] [place] Status: Signed [facility] History of Present Illness Details: REMY BLACKBURN, is a 81 M who presents to the office today for a cardiovascular followup. He has a history of coronary artery disease with bypass surgery in 2000. He did have a left internal mammary artery to the left anterior descending artery and diagonal as a sequential graft, radial graft to the obtuse marginal branch, and saphenous vein graft to the right coronary artery. He also has a history of hypertension, hyperlipidemia, left carotid stenosis estimated at 50 to 70%. He presents for follow-up visit. The patient had evidence of paroxysmal atrial fibrillation with significant pauses noted his beta-loly was discontinued and he had placement of a Micra device in March 2021. He says that he feels more energetic at this time. He denies chest, arm, jaw, or neck discomfort. He continues with shortness of breath with exertion. He does not feel this to be worsening. This is most noted when carrying something. He denies symptoms of shortness of breath at rest, orthopnea, PND, sudden weight gain, or bilateral lower extremity edema. He denies chronic cough. He denies palpitations, lightheadedness, near syncope, or syncopal episodes. He states dizziness with position changes. He denies claudication issues. He denies fever or chills. He denies blood in urine, blood in stool, or epistaxis. He denies myalgia. He denies unexplainable fatigue. His exercise tolerance is stable. Intake Vital Signs 06/28/21 11:08 Height 6 ft Weight: 192 lb BMI 26.0 BP 128/68 H Respiration 16 Pulse 66 Pulse Oximetry (%) 97 Intake Visit Reasons: 10 m fu Micra VR f/u @ 10:30am Allergies No Known Allergies Allergy (Verified 06/28/21 09:42) Medications aspirin 81 mg PO DAILY@0800 04/18/14 [History Confirmed 06/28/21] nitroglycerin 0.4 mg SUBLINGUAL Q5M PRN 04/18/14 [History Confirmed 06/28/21] dutasteride 0.5 mg capsule 0.5 mg PO DAILY 04/16/18 [History Confirmed 06/28/21] pravastatin 80 mg tablet 80 mg PO QHS #90 tab 02/20/20 [Rx Confirmed 06/28/21] losartan 100 mg tablet 100 mg PO DAILY #90 tab 08/31/20 [Rx Confirmed 06/28/21] oxybutynin chloride 10 mg tablet,extended release 24 hr 10 mg PO DAILY tab 01/06/21 [History Confirmed 06/28/21] apixaban 5 mg tablet 5 mg PO BID #60 tab 02/07/21 [Rx Confirmed 06/28/21] hydrochlorothiazide 25 mg tablet 25 mg PO DAILY #90 tab 03/07/21 [Rx Confirmed 06/28/21] esomeprazole magnesium 40 mg capsule,delayed release 40 mg PO DAILY #90 cap 03/14/21 [Rx Confirmed 06/28/21] Ejection fraction %: 55 to 59 PFSH Medical History Atherosclerosis of coronary artery of [place] heart without angina pectoris Chronic diastolic (congestive) heart failure Dizziness and giddiness Dyspnea on exertion Edema Essential (primary) hypertension 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 Persistent atrial fibrillation Presence of leadless cardiac pacemaker Pulmonary embolism Pure hypercholesterolemia Secondary pulmonary arterial hypertension Shortness of breath Sick sinus syndrome Stenosis of left carotid artery TIA (transient ischemic attack) Surgical History H/O coronary artery bypass surgery (06/2001) History of hip replacement History of skin graft 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 Family History Father CAD (coronary artery disease) Mother CAD (coronary artery disease) Brother CAD (coronary artery disease) Social History Smoking Status: Never smoker alcohol intake: never substance use type: does not use caffeine: Yes Type: coffee Number of servings: 2 ROS Const Const: Negative for fatigue, weakness, headache(s), frequent falls, difficulty sleeping or excessive sweating Eyes Eyes: Negative for loss of peripheral vision, transient loss of vision, blurry vision, double vision or tunnel vision ENT ENT: Negative for headache(s), dizziness, Nosebleed/epistaxis or balance problems Cardio Chest Pain: No Palpitations: No Edema: None Muscle aches with walking: None Resp Respiratory: Negative for SOB with activity, SOB at rest, SOB orthopnea SOB lying down, Cough or paroxysmal nocturnal dyspnea GI GI: Negative nausea, vomiting, heartburn or black,tarry stools : Negative for hematuria Musc Musc: Negative for muscle aches/ myalgia, muscle weakness, joint pain or balance problems Skin Skin: Negative non-healing lesions, rash or unusual bruising Neuro Neuro: Negative for dizziness, lightheadedness, near syncope, syncope, orthostatic symptoms, frequent falls, headache(s), weakness, blurry vision, double vision or lack of coordination Emmanuel Hematologic/Lymphatic: Negative for easy bleeding or easy bruising Endo Endo: Negative for fatigue, excessive sweating or increased thirst/drinking Psych Psych: Negative for anxiety or depression Allergy Allergy/Immunology: Negative for hives and Negative for rash Cardiology Exam Const Appearance: cooperative, healthy appearing, no acute distress, well developed and well groomed Nutritional Appearance: average body habitus and well nourished Orientation: alert, awake and oriented x3 Head Head: normal to inspection, normocephalic and atraumatic Ears: hearing grossly normal bilaterally and external ears normal Nose: external nose normal, nares normal, nasal mucous membranes and turbinates normal, septum normal and no nasal discharge Face and Sinus: face symmetric Mouth: oral mucosae normal, tongue normal, oropharynx normal and moist mucous membranes Teeth and gingiva: dentition normal Throat: posterior oropharynx normal, tonsils normal and uvula midline Eyes General: appearance normal, both eyes and all related structures Eyelids: eyelids normal Conjunctivae: conjunctivae normal Pupils: PERRL, normal by confrontation and accommodation normal EOM: EOM intact bilaterally Neck Neck: normal visual inspection, trachea midline and no JVD JVD: +5 Carotids: normal carotid upstroke and bounding pulses Chest Chest inspection: normal inspection of the chest, symmetric chest movement and normal respiratory effort Auscultation: Bilateral: Clear to Auscultation Cardio Palpation: normal PMI Rate: regular rate Rhythm: regular rhythm Heart sounds: S1 normal, S2 normal and normal, physiologic split S2; Negative rub, gallop or murmur GI GI: normal to inspection, soft, no hepatosplenomegaly and bowel sounds present Neuro General: patient alert, patient awake, patient oriented x3, gait normal, moves all extremities and no focal sensory deficit Skin Skin: no rashes or lesions noted Extremities Pulses: Normal: Right Femoral Pulse, Left Femoral Pulse, Right Dorsalis Pedis Pulse, Left Dorsalis Pedis Pulse, Right Posterior Tibial Pulse, Left Posterior Tibial Pulse, Right Radial Pulse and Left Radial Pulse Lower Extremity Edema: None: Bilateral Musculoskel Musculoskeletal: No joint tenderness Psych Psychological: normal affect Supplemental Info Supplemental Information Labs: No Data to Display Diagnostics: Stress Test NM Stress Test Pacemaker Check Chest X-Ray Pulmonary: No Data to Display Assessment and Plan Assessment and Plan (1) Presence of leadless cardiac pacemaker: Status: Acute Plan - Dr. Benito Diaz MD: He is status post placement of a permanent pacemaker with a Micra device. His device appears to be functioning well it was interrogated today with V pacing at 9% and battery longevity over 8 years. No changes will be made at this time. (2) Persistent atrial fibrillation: Status: Chronic Plan - Dr. Benito Diaz MD: He does have evidence of atrial fibrillation and remains on anticoagulation for the above. (3) H/O coronary artery bypass surgery: Status: Resolved Comment: CABG x 4 Sequential ARREAGA to LAD and D1, radial graft to OM1, SVG to RCA 06/2001 Plan - Dr. Benito Diaz MD: He is status post coronary bypass surgery. He denies any angina his recent stress test in December of this year was negative for ischemia. No other medical changes will be made. (4) Chronic diastolic (congestive) heart failure: Status: Chronic Plan - Dr. Benito Diaz MD: He does have evidence of chronic diastolic heart failure and remains on diuretics. He is able to participate in most activities of daily living without any problems. (5) Essential (primary) hypertension: Status: Chronic Plan - Dr. Benito Diza MD: He does have a history of hypertension his blood pressure is very well controlled on the current medical therapy and I would not suggest that we make any changes. Overall I am pleased with his care. Plan Details Other Medications: Resumed: apixaban (Eliquis) 5 mg PO BID 60 tabs 11RF Additional Comments: Portions of this documentation were copied and pasted from previous office visit notes to provide a cohesive continuity of the history. The note has been reviewed, edited, and updated, as necessary. 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) Coding Level of Care Code Off vis,est,level 4 Diagnoses Presence of leadless cardiac pacemaker Z95.0 Persistent atrial fibrillation I48.19 H/O coronary artery bypass surgery Z95.1 Chronic diastolic (congestive) heart failure I50.32 Essential (primary) hypertension I10 Coding Level of Care Code Off vis,est,level 4 Diagnoses Presence of leadless cardiac pacemaker Z95.0 Persistent atrial fibrillation I48.19 H/O coronary artery bypass surgery Z95.1 Chronic diastolic (congestive) heart failure I50.32 Essential (primary) hypertension I10 06/28/21 1520 <Electronically signed by Benito Diaz MD> Date Benito Diaz MD Cosigner Signature: Date (if applicable) CC: Dr. Laura Rodriguez, DO Laura Rodriguez DO Work Phone: Start: 04-22-2021 End: 04-22-2021 Comments: See Note; NOTES: [facility] [place] [address] Pacemaker Check Date of Service: 04/22/21 1313 MR#: [id number] Acct: [id number] Name: REMY BLACKBURN Rep #: [id number] : 1940 From: Danielle Rendon Age/Sex: 80/M Location: [facility] [place] Status: Signed Billing Codes MICRA: PM Dev Prog Eval, Single Assessment and Plan Assessment and Plan (1) Persistent atrial fibrillation: Status: Acute (2) Sick sinus syndrome: Status: Acute (3) Sinus pause: Status: Acute (4) Presence of leadless cardiac pacemaker: Status: Acute 04/22/21 1314 <Electronically signed by Danielle Rendon > Date Danielle Dillon Signature: Date (if applicable) CC: Laura Rodriguez DO Work Phone: Start: 04-15-2021 End: 04-15-2021 Comments: See Note; NOTES: [facility] [address] [place] [address]. [address] [place] [address] Pacemaker Check Date of Service: 04/15/211645 MR#: [id number] Acct: [id number] Name: REMY BLACKBURN Rep #: [id number] : 1940 From: Danielle Rendon Age/Sex: 80/M Location: [facility] [place] Status: Signed Billing Codes MICRA: PM Dev Prog Eval, Single Assessment and Plan Assessment and Plan (1) Persistent atrial fibrillation: Status: Acute (2) Sick sinus syndrome: Status: Acute (3) Sinus pause: Status: Acute (4) Paroxysmal atrial fibrillation: Status: Acute Plan Details Other Medications: Discontinued: spironolactone Discontinued Reason: Pt no longer taking 25 mg PO DAILY 30 tabs 6RF metoprolol succinate ER Discontinued Reason: Order Changed 25 mg PO DAILY 30 tabs 11RF 04/15/21 1647 <Electronically signed by Danielle Rendon > Date Danielle Dillon Signature: Date (if applicable) CC: Laura Rodriguez DO Work Phone: Start: 04-15-2021 End: 04-15-2021 Comments: See Note; NOTES: [facility] Medical Records Department [address] [place] [address] Instructions for Home/Discharge Instructions 04/15/21 0755 MR#: [id number] Acct: [id number] Name: REMY BLACKBURN Rep #: [id number] : 1940 80 From: Benito Diaz MD PCP: Dr. Laura Rodriguez, DO [place] [place] Instructions Diet Discharge Diet: No restrictions (as you feel able. No excessive stretching. No lifting your arm over your head (keep elbow below shoulder level) until seen for your pacemaker check. Do not lift your elbow away from your side until you are seen for your first visit. Keep the arm sling on if it helps remind you not to lift your arm.) Activity Additional Activity Instructions:: May shower or bathe on []. Do not scrub the incision or soak in the tub. Just wash with soap and let the water run over the incision. Gently pat dry with towel. Medications: Take your pain medication as directed. Refer to your discharge instruction sheet for a list of medications you are to take. Dressing / Incision Call your doctor if your incision/area has: Continuous Slow Oozing, Sudden Increased Bleeding, Increased Pain/ Swelling, Increased Redness, Foul Smelling Discharge and Swelling at the incision site Call your doctor if you observe: Fever of 101 or Higher, Shortness of breath, Dizziness, Fainting spells, Swelling in the ankles, Chest pain, Prolonged hiccupping and Increased palpitations (irregular heartbeat) Additional Dressing/Incision Instructions:: When dressing is removed, wash and dry incision. Keep covered with a light bandage if it is rubbing against your clothing. Do not cover the incision with an airtight bandage. Change the bandage daily. Do not remove steri strips. The strips will fall off on their own. Follow Up Care Please Follow Up With: Benito Diaz MD When: Call [phone] for follow up. Follow-up with pacemaker clinic on Trac[address] 24 at 11 AM Test Results: Test results from this visit will be discussed in further detail at your follow-up appointment, if applicable. Discharge Plan Admission Attending Provider: Benito Diaz Primary Care Provider: Laura Rodriguez Discharge Orders/Prescriptions Prescriptions: No Action dutasteride 0.5 mg capsule 0.5 mg PO DAILY RF: 0 oxybutynin chloride 10 mg tablet extended release 24hr 10 mg PO DAILY RF: 0 nitroglycerin 0.4 MG tablet 0.4 mg SUBLINGUAL Q5M PRN (Reason: Chest Pain) RF: 0 aspirin 81 MG tablet,chewable 81 mg PO DAILY@0800 RF: 0 pravastatin 80 mg tablet 80 mg PO QHS Qty: 90 RF: 3 losartan 100 mg tablet 100 mg PO DAILY Qty: 90 RF: 3 Eliquis 5 mg tablet 5 mg PO BID Qty: 60 RF: 11 hydrochlorothiazide 25 mg tablet 25 mg PO DAILY Qty: 90 RF: 4 esomeprazole magnesium 40 mg capsule,delayed release(DR/EC) 40 mg PO DAILY Qty: 90 RF: 3 04/15/21 0756<Electronically signed by Benito Diaz MD>Benito Diaz MD CC: Dr. Laura Rodriguez, DO Signed Laura Rodriguez DO Work Phone: Start: 04-14-2021 End: 04-14-2021 Comments: See Note; NOTES: [facility] Medical Records Department [address] [place] [address] Operative Report 04/14/21 1210 MR#: [id number] Acct: [id number] Name: REMY BLACKBURN Rep #: [id number] : 1940 80 From: Benito Diaz MD PCP: Dr. Laura Rodriguez, DO [place] [place] Location: [facility] Problems Associated Problem List Diagnoses (1) Persistent atrial fibrillation: (2) Sinus pause: Operative Report Date of Procedure: 04/14/21 Insertion also leadless VVI pacemaker via the right femoral vein. MICRA Diagnosis symptomatic bradycardia atrial fibrillation with a slow ventricular response rate with pauses. After informed consent was obtained and shared decision-making was undertaken the patient was brought to the cardiac catheterization lab in the right and left groins were prepped and draped in a sterile manner. Procedural antibiotics were administered. The patient was sedated with intravenous Versed and fentanyl in bolus aliquots. 1% subcutaneous Xylocaine was used for local analgesia. Femoral vein access was achieved via the Seldinger technique and confirmed by positioning of the guidewire into the superior vena cava under fluoroscopic guidance. Over the wire the Susannah dilator was used to dilate the femoral vein access to up to 20 Maldivian. The Susannah dilator was removed. After thorough flushing of the sheath with heparinized saline the 23 Maldivian delivery sheath was inserted and advanced over the wire under fluoroscopic guidance to the floor of the right atrium. A bolus of 5000 units of intravenous heparin was administered. The delivery catheter and leadless pacemaker were then brought into the field and was flushed thoroughly with heparinized saline used to express all air distally. Saline flush was used to flush the suture at the proximal end of the distal delivery sheath handle. Through the delivery sheath the delivery catheter and leadless pacemaker were advanced through the sheath to the floor of the right atrium under fluoroscopic guidance. The delivery catheter and pacemaker were advanced beyond the delivery sheath with appropriate deflection and manipulation the delivery catheter and pacemaker were advanced under fluoroscopic guidance in the OLIVAS projection across the tricuspid valve into the right ventricle. In the MOHAWK projection the delivery sheath was positioned in from a position with the right ventricular septal wall. Contrast injection confirmed firm contact with the right ventricular wall along the septum and excluded an apical position. The delivery sheath was then flushed with heparinized saline. The leadless pacemaker was then deployed in the delivery sheath was pulled back to an adequate position to complete the tug test. Under magnified view with cine imaging the tug test was completed and confirmed with no less than 2 of the 4 times noted to be in excellent contact of the myocardium and there was no dislodgment of the pacemaker. Testing was performed of the device and acceptable sensing impedance and capture thresholds were obtained. The testing of the pacemaker was repeated multiple times and confirmed to be adequate and stable. The delivery sheath was flushed again with heparinized saline one end of the suture was cut and the suture was slowly withdrawn from the delivery sheath. Once the suture was removed the pacemaker was tested again and confirmed appropriate and stable electrical parameters. There was no change in position of the device after the suture was removed. The delivery catheter and sheath were then removed from the femoral vein hemostasis was obtained with a surgical pursestring closure with use of a three-way stopcock and manual pressure for 10 minutes. The patient left the room in stable condition with the pacemaker programmed to appropriate parameters with a VVI of 50 bpm. R waves were noted to be 20 mV, pacing impedance of 770 ohms and pacing threshold of 0.63 V at 0.24 ms. Device information electrocoagulator and serial number were provided in the chart. 04/14/21 1215 <Electronically signed by Benito Diaz MD> Cosigner Signature (if applicable): CC: Dr. Benito Diaz MD; Dr. Laura Rodriguez, DO Signed Laura Rodriguez DO Work Phone: Start: 04-14-2021 End: 04-14-2021 Comments: See Note; NOTES: [facility] Medical Records Department [address] [place] [address] History Physical Exam 04/14/21 0819 MR#: [id number] Acct: [id number] Name: REMY BLACKBURN Rep #: [id number] : 1940 80 From: Arnie Youssef NP DISTRICT OPERATIONS MANAGER-C PCP: Dr. Laura Rodriguez, Status[place] [facility] [place] Location: [facility] History and Physical Date of Admission: 04/14/21 REMY BLACKBURN, is a 80 M who presents to the [facility] today for Micra Pacemaker placement. He has a history of coronary artery disease with bypass surgery in 2000. He did have a left internal mammary artery to the left anterior descending artery and diagonal as a sequential graft, radial graft to the obtuse marginal branch, and saphenous vein graft to the right coronary artery. He also has a history of hypertension, hyperlipidemia, left carotid stenosis estimated at 50 to 70%. He presents for follow-up visit. He completed a 30-day event monitor to assess paroxysmal atrial fibrillation. During such monitoring he has had multiple pauses 3 seconds or greater. This included a 3.3 seconds, two at 3 seconds, and a 3.4 seconds. He has also had short runs of ventricular tachycardia. He had atrial fibrillation throughout. He was initially started on Eliquis and metoprolol therapy. After noted pauses, his beta-loly was discontinued. He continued to have pauses after discontinuing beta- loly. He denies chest, arm, jaw, or neck discomfort. He continues with shortness of breath with exertion. He does not feel this to be worsening. This is most noted when carrying something. He denies symptoms of shortness of breath at rest, orthopnea, PND, sudden weight gain, or bilateral lower extremity edema. He denies chronic cough. He denies palpitations, lightheadedness, near syncope, or syncopal episodes. He states dizziness with position changes. He denies claudication issues. He denies fever or chills. He denies blood in urine, blood in stool, or epistaxis. He denies myalgia. He denies unexplainable fatigue. His exercise tolerance is stable. He does acknowledge intermittent snoring. He states difficulty sleeping. 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 Automotive Artist Required: No Is patient in pain?: No Allergies No Known Allergies Allergy (Verified 02/28/21 14:36) Medications See EMR [facility] Medical History (Updated 03/22/21 @ 14:09 by Danielle Rendon) Atherosclerosis of coronary artery of [place] heart without angina pectoris Chronic diastolic (congestive) heart failure Dizziness and giddiness Dyspnea on exertion Edema Essential (primary) hypertension 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 Persistent atrial fibrillation Pulmonary embolism Pure hypercholesterolemia Secondary pulmonary arterial hypertension Shortness of breath Sick sinus syndrome Stenosis of left carotid artery TIA (transient ischemic attack) Surgical History H/O coronary artery bypass surgery (06/2001) History of hip replacement History of skin graft 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 Family History Father CAD (coronary artery disease) Mother CAD (coronary artery disease) Brother CAD (coronary artery disease) Social History Smoking Status: Never smoker alcohol intake: never substance use type: does not use caffeine: Yes Type: coffee Number of servings: 2 ROS Const Const: Negative for fatigue, weakness, body ache, fever(s) or chills ENT ENT: Positive for dizziness; Negative for Nosebleed/epistaxis Cardio Chest Pain: No Palpitations: No Edema: None Muscle aches with walking: None Resp Respiratory: Positive for SOB with activity and snoring; Negative for SOB at rest, SOB orthopnea SOB lying down, Cough or paroxysmal nocturnal dyspnea GI GI: Negative nausea, vomiting blood/hematemesis, bright, red blood in stools or black,tarry stools : Negative for hematuria or frequent nighttime urination/ nocturia Musc Musc: Negative for muscle aches/ myalgia Skin Skin: Negative non-healing lesions or rash Neuro Neuro: Positive for dizziness; Negative for lightheadedness, near syncope, syncope, orthostatic symptoms or weakness Endo Endo: Negative for fatigue Allergy Allergy/Immunology: Negative for rash Cardiology Exam Const Appearance: cooperative, healthy appearing, comfortable and no acute distress Nutritional Appearance: average body habitus and well nourished Orientation: alert, awake and oriented x3 Head Head: normal to inspection Ears: hearing grossly normal bilaterally Nose: external nose normal Face and Sinus: face symmetric Mouth: oral mucosae normal Eyes General: appearance normal, both eyes and all related structures Eyelids: eyelids normal EOM: EOM intact bilaterally Neck Neck: normal visual inspection and no JVD Carotids: normal carotid upstroke Chest Chest inspection: normal inspection of the chest, symmetric chest movement and normal respiratory effort; Negative cough Auscultation: Bilateral: Clear to Auscultation Cardio Rate: regular rate Rhythm: regular rhythm Heart sounds: S1 normal and S2 normal; Negative rub, gallop or murmur GI GI: normal to inspection Neuro General: patient alert, patient awake, patient oriented x3 and CN's II-XI intact bilaterally Skin Skin: no rashes or lesions noted Extremities Pulses: Normal: Right Posterior Tibial Pulse, Left Posterior Tibial Pulse, Right Radial Pulse and Left Radial Pulse Lower Extremity Edema: None: Bilateral Psych Psychological: normal affect Assessment and Plan Assessment and Plan (1) H/O coronary artery bypass surgery: Status: Resolved Comment: CABG x 4 Sequential ARREAGA to LAD and D1, radial graft to OM1, SVG to RCA 06/2001 Plan - Arnie Youssef DISTRICT OPERATIONS MANAGER, DISTRICT OPERATIONS MANAGER-C: His most recent stress test on 01/13/2021 was negative for ischemia. He denies any chest, arm, jaw, or neck discomfort suggestive of angina. His shortness of breath is slightly improved. At this time, he will continue current medical therapy and we will continue to monitor. (2) Atherosclerosis of coronary artery of [place] heart without angina pectoris: Status: Chronic Qualifiers: Coronary Disease-Associated Artery/Lesion type: [place] artery Qualified Code(s): I25.10 - Atherosclerotic heart disease of [place] coronary artery without angina pectoris Plan - Arnie Youssef NP, DISTRICT OPERATIONS MANAGER-C: He will continue current medical therapy. (3) Chronic diastolic (congestive) heart failure: Status: Chronic Gerardo - Arnie Youssef NP, DISTRICT OPERATIONS MANAGER-C: He does knowledge improvement in symptoms since increasing hydrochlorothiazide therapy. However, his shortness of breath remains. At this time, he will continue current medical therapy and we will continue to monitor. We will consider laboratory evaluation or Lasix therapy in the future depending on overall progress. (4) Nonrheumatic aortic (valve) stenosis with insufficiency: Status: Chronic Gerardo Youssef NP, DISTRICT OPERATIONS MANAGER-C: This appears stable. He will continue current medical therapy. (5) Essential (primary) hypertension: Status: Chronic Gerardo Youssef NP, DISTRICT OPERATIONS MANAGER-C: Over time, depending on overall progress, we could consider tighter blood pressure control with additional agents such as amlodipine. (6) Pure hypercholesterolemia: Status: Chronic Gerardo Youssef NP, DISTRICT OPERATIONS MANAGER-C: He will continue current medical therapy . (7) Stenosis of left carotid artery: Status: Chronic Gerardo Youssef NP DISTRICT OPERATIONS MANAGER-C: He will continue current medical therapy. (8) Sinus pause: Status: Acute Gerardo Youssef NP, DISTRICT OPERATIONS MANAGER-C: He has had multiple episodes of pauses greater than 3 seconds. 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 At this time, he was asked to proceed with Micra pacemaker placement. This will also help assess and assist with atrial fibrillation management as well. (9) Paroxysmal atrial fibrillation: Status: Acute Gerardo oYussef NP, DISTRICT OPERATIONS MANAGER-C: Patient's 30-day event monitor has predominantly showed atrial fibrillation. Due to pauses, we will not reinitiate beta-loly therapy. He will continue with Eliquis therapy for CVA protection. Over time, we will continue to monitor associated symptoms and consider antiarrhythmic medication or cardioversion as necessary along with beta loly therapy for rate control. Plan Details Additional Comments: Thank you for allowing us to participate in the patients plan of care, if you have any questions please do not hesitate to call. This note was generated using a voice recognition system and there may be incorrect words, spelling or punctuation that were not noted when reviewing the office note prior to saving. COVID (Procedure Consent) Procedure Criteria Procedure Criteria: Yes Elective The surgeon/proceduralist and patient have discussed in detail the risk of exposure to and/or potential harm posed by the COVID-19 virus with having a surgery/procedure at this time versus the risk of delaying the surgery/procedure. It is not possible to know either the risk of delaying the surgery or procedure or chance of getting an infection with perfect accuracy, but a joint decision was made between the patient and the surgeon/proceduralist to proceed at this time with the scheduled surgery/procedure as indicated on the consent form. Supplemental Information Echocardiogram from 10/12/2020: Interpretation Summary Normal LV size. Left ventricular systolic function is normal. The estimated ejection fraction is 55 %. Mean aortic valve gradient 16 mmHg. Mild (1+) eccentric aortic valve insufficiency. Calculated aortic valve area (continuity equation) is 1.6 cm2. The left atrium is mildly enlarged. Stress test from 01/13/2021: Conclusion: Normal pharmacologic myocardial perfusion stress test. Preserved ejection fraction. Atrial fibrillation. Carotid duplex ultrasound from 01/13/2021: Interpretation Summary Mild (<50%) stenosis right extracranial internal carotid. Moderate (50-69%) stenosis left extracranial internal carotid. Flow within the vertebral arteries is antegrade bilaterally. 04/14/21 0824 <Electronically signed by Arnie BOWLING> Cosigner Signature (if applicable): 04/14/21 1545 <Electronically signed by Benito Diaz MD> CC: DASH Youssef; Dr. Benito Diaz MD; Dr. Laura Rodriguez, DO Signed Laura Rodriguez DO Work Phone: Start: 04-07-2021 End: 04-07-2021 Comments: See Note; NOTES: [facility] [address] [place], [place] [id number] Pacemaker Check Date of Service: 04/07/21 1345 MR#: [id number] Acct: [id number] Name: REMY BLACKBURN Rep #: [id number] : 1940 From: Danielle Rendon Age/Sex: 80/M Location: [facility] [place] Status: Signed Billing Codes Nurse, Teaching, Wound Ck (no charge): Yes Assessment and Plan Assessment and Plan (1) Persistent atrial fibrillation: Status: Acute (2) Sick sinus syndrome: Status: Acute (3) Sinus pause: Status: Acute (4) Paroxysmal atrial fibrillation: Status: Acute 04/07/21 1347 <Electronically signed by Danielle Rendon > Date Danielle Rendon Cosigner Signature: Date (if applicable) CC: Laura Rodriguez DO Work Phone: Start: 04-07-2021 End: 04-08-2021 Comments: See Note; NOTES: [facility] Imaging Services [address] [place] [address] Chest PA and Lateral MR#: [id number] Acct: [id number] Name: REMY BLACKBURN Rep #: [id number] : 1940 M 80 From: Elie Toribio MD PCP: Dr. Laura Rodriguez DO Status: [facility] [place] Study: Chest PA and Lateral Date of Exam: 04/07/21 Exam# [id number] Ordering Dr: Benito Diaz MD STUDY: X-RAY CHEST REASON FOR EXAM: Male, 80 years old. For [employer] VR implant with Dr. Diaz on 04/14/2021. TECHNIQUE: Frontal and lateral views of the chest. COMPARISON: 09/04/2019. FINDINGS: Stable mild hyperexpansion. Stable scattered healed granulomatous calcifications. There is no demonstrated pleural abnormality. Stable cardiomegaly with sternotomy wires and clips projected over the cardiac silhouette. Normal mediastinum and susie. Normal visualized pulmonary arteries. Normal visualized aortic arch and descending thoracic aorta. Normal visualized thoracic spine. Normal visualized ribs, clavicles, and shoulders. There is no demonstrated abnormality of the visualized soft tissue structures of the upper abdomen. RAD/Chest PA and Lateral IMPRESSION: Stable chest with no acute or active cardiopulmonary disease. Electronically Signed: Elie Toribio MD at 10:48 EDT , Service support , CC: Dr. Benito Diaz MD; Dr. Laura Rodriguez DO Plumber And Tinner: Signed Laura Rodriguez DO Work Phone: Start: 02-28-2021 End: 03-23-2021 Comments: See Note; NOTES: [facility] [address] [place] [address] OFFICE VISIT Date of Service: 02/28/21 MR#: [id number] Acct: [id number] Name: REMY BLACKBURN Rep #: [id number] : 1940 Provider: DASH lam Age/Sex: 80/M Location: [facility] [place] Status: Signed HPI HPI History of Present Illness Surgical H P: Yes Details: REMY BLACKBURN, is a 80 M who presents to the office today for a cardiovascular followup. He has a history of coronary artery disease with bypass surgery in 2000. He did have a left internal mammary artery to the left anterior descending artery and diagonal as a sequential graft, radial graft to the obtuse marginal branch, and saphenous vein graft to the right coronary artery. He also has a history of hypertension, hyperlipidemia, left carotid stenosis estimated at 50 to 70%. He presents for follow-up visit. Patient is currently undergoing a 30-day event monitor to assess paroxysmal atrial fibrillation. During such monitoring he has had multiple pauses 3 seconds or greater. This includes 3.3 seconds, 3.0 seconds, 3.4 seconds, and 3 seconds. He has also had short runs of ventricular tachycardia. He has also had atrial fibrillation throughout. He was initially started on Eliquis and metoprolol therapy. After noted pauses, his beta-loly was discontinued. He continued to have pauses after discontinuing beta-loly. He underwent lower extremity arterial scan that was negative for significant occlusive disease. He denies chest, arm, jaw, or neck discomfort. He continues with shortness of breath with exertion. He does not feel this to be worsening. This is most noted when carrying something. He denies symptoms of shortness of breath at rest, orthopnea, PND, sudden weight gain, or bilateral lower extremity edema. He denies chronic cough. He denies palpitations, lightheadedness, near syncope, or syncopal episodes. He states dizziness with position changes. He denies claudication issues. He denies fever or chills. He denies blood in urine, blood in stool, or epistaxis. He denies myalgia. He denies unexplainable fatigue. His exercise tolerance is stable. He does acknowledge intermittent snoring. He states difficulty sleeping. Intake Vital Signs 02/28/21 14:36 02/28/21 14:40 Height 6 ft Weight: 192 lb BMI 26.0 25.4 BP 132/64 H Blood Pressure Location Lt brachial Position Sitting Respiration 18 Pulse 72 Pulse Source Monitor Pulse Oximetry (%) 98 Intake Visit Reasons: 3 wk fu Automotive Artist Required: No Is patient in pain?: No Allergies No Known Allergies Allergy (Verified 02/28/21 14:36) Medications aspirin 81 mg PO DAILY@0800 04/18/14 [History Confirmed 02/28/21] nitroglycerin 0.4 mg SUBLINGUAL Q5M PRN 04/18/14 [History Confirmed 02/28/21] dutasteride 0.5 mg capsule 0.5 mg PO DAILY 04/16/18 [History Confirmed 02/28/21] pravastatin 80 mg tablet 80 mg PO QHS #90 tab 02/20/20 [Rx Confirmed 02/28/21] losartan 100 mg tablet 100 mg PO DAILY #90 tab 08/31/20 [Rx Confirmed 02/28/21] oxybutynin chloride 10 mg tablet,extended release 24 hr 10 mg PO DAILY tab 01/06/21 [History Confirmed 02/28/21] apixaban 5 mg tablet 5 mg PO BID #60 tab 02/07/21 [Rx Confirmed 02/28/21] hydrochlorothiazide 25 mg tablet 25 mg PO DAILY #90 tab 03/07/21 [Rx] esomeprazole magnesium 40 mg capsule,delayed release 40 mg PO DAILY #90 cap 03/14/21 [Rx] PFSH Medical History (Updated 03/22/21 @ 14:09 by Danielle Rendon) Atherosclerosis of coronary artery of [place] heart without angina pectoris Chronic diastolic (congestive) heart failure Dizziness and giddiness Dyspnea on exertion Edema Essential (primary) hypertension 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 Persistent atrial fibrillation Pulmonary embolism Pure hypercholesterolemia Secondary pulmonary arterial hypertension Shortness of breath Sick sinus syndrome Stenosis of left carotid artery TIA (transient ischemic attack) Surgical History (Reviewed 02/28/21 @ 14:47 by Arnie Youssef DISTRICT OPERATIONS MANAGER, DISTRICT OPERATIONS MANAGER-C) H/O coronary artery bypass surgery (06/2001) History of hip replacement History of skin graft 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 Family History (Reviewed 02/28/21 @ 14:47 by Arnie Youssef DISTRICT OPERATIONS MANAGER, DISTRICT OPERATIONS MANAGER-C) Father CAD (coronary artery disease) Mother CAD (coronary artery disease) Brother CAD (coronary artery disease) Social History (Reviewed 02/28/21 @ 14:47 by Arnie Youssef DISTRICT OPERATIONS MANAGER, DISTRICT OPERATIONS MANAGER-C) Smoking Status: Never smoker alcohol intake: never substance use type: does not use caffeine: Yes Type: coffee Number of servings: 2 ROS Const Const: Negative for fatigue, weakness, body ache, fever(s) or chills ENT ENT: Positive for dizziness; Negative for Nosebleed/epistaxis Cardio Chest Pain: No Palpitations: No Edema: None Muscle aches with walking: None Resp Respiratory: Positive for SOB with activity and snoring; Negative for SOB at rest, SOB orthopnea SOB lying down, Cough or paroxysmal nocturnal dyspnea GI GI: Negative nausea, vomiting blood/hematemesis, bright, red blood in stools or black,tarry stools : Negative for hematuria or frequent nighttime urination/ nocturia Musc Musc: Negative for muscle aches/ myalgia Skin Skin: Negative non-healing lesions or rash Neuro Neuro: Positive for dizziness; Negative for lightheadedness, near syncope, syncope, orthostatic symptoms or weakness Endo Endo: Negative for fatigue Allergy Allergy/Immunology: Negative for rash Cardiology Exam Const Appearance: cooperative, healthy appearing, comfortable and no acute distress Nutritional Appearance: average body habitus and well nourished Orientation: alert, awake and oriented x3 Head Head: normal to inspection Ears: hearing grossly normal bilaterally Nose: external nose normal Face and Sinus: face symmetric Mouth: oral mucosae normal Eyes General: appearance normal, both eyes and all related structures Eyelids: eyelids normal EOM: EOM intact bilaterally Neck Neck: normal visual inspection and no JVD Carotids: normal carotid upstroke Chest Chest inspection: normal inspection of the chest, symmetric chest movement and normal respiratory effort; Negative cough Auscultation: Bilateral: Clear to Auscultation Cardio Rate: regular rate Rhythm: regular rhythm Heart sounds: S1 normal and S2 normal; Negative rub, gallop or murmur GI GI: normal to inspection Neuro General: patient alert, patient awake, patient oriented x3 and CN's II-XI intact bilaterally Skin Skin: no rashes or lesions noted Extremities Pulses: Normal: Right Posterior Tibial Pulse, Left Posterior Tibial Pulse, Right Radial Pulse and Left Radial Pulse Lower Extremity Edema: None: Bilateral Psych Psychological: normal affect Assessment and Plan Assessment and Plan (1) H/O coronary artery bypass surgery: Status: Resolved Comment: CABG x 4 Sequential ARREAGA to LAD and D1, radial graft to OM1, SVG to RCA 06/2001 Plan - Arnie Youssef DISTRICT OPERATIONS MANAGER, DISTRICT OPERATIONS MANAGER-C: His most recent stress test on 01/13/2021 was negative for ischemia. He denies any chest, arm, jaw, or neck discomfort suggestive of angina. His shortness of breath is slightly improved since last office visit. At this time, he will continue current medical therapy and we will continue to monitor. (2) Atherosclerosis of coronary artery of [place] heart without angina pectoris: Status: Chronic Qualifiers: Coronary Disease-Associated Artery/Lesion type: [place] artery Qualified Code(s): I25.10 - Atherosclerotic heart disease of [place] coronary artery without angina pectoris Plan - Arnie Youssef DISTRICT OPERATIONS MANAGER, DISTRICT OPERATIONS MANAGER-C: He will continue current medical therapy. (3) Chronic diastolic (congestive) heart failure: Status: Chronic Plan - Arnie Youssef NP, DISTRICT OPERATIONS MANAGER-C: He does knowledge improvement in symptoms since increasing hydrochlorothiazide therapy. However, his shortness of breath remains. At this time, he will continue current medical therapy and we will continue to monitor. We will consider laboratory evaluation or Lasix therapy in the future depending on overall progress. (4) Nonrheumatic aortic (valve) stenosis with insufficiency: Status: Chronic Gerardo Youssef DISTRICT OPERATIONS MANAGER, DISTRICT OPERATIONS MANAGER-C: This appears stable. He will continue current medical therapy. (5) Essential (primary) hypertension: Status: Chronic Gerardo Youssef NP, DISTRICT OPERATIONS MANAGER-C: His blood pressure slight elevated in office. It appears to fluctuate at home. Over time, depending on overall progress, we could consider tighter blood pressure control with additional agents such as amlodipine. (6) Pure hypercholesterolemia: Status: Chronic Gerardo - Arnie Youssef DISTRICT OPERATIONS MANAGER, DISTRICT OPERATIONS MANAGER-C: He will continue current medical therapy. (7) Stenosis of left carotid artery: Status: Chronic Gerardo Youssef NP, DISTRICT OPERATIONS MANAGER-C: He will continue current medical therapy. (8) Sinus pause: Status: Acute Gerardo Youssef NP, DISTRICT OPERATIONS MANAGER-C: He has had multiple episodes of pauses greater than 3 seconds. 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 At this time, he was asked to proceed with Micra pacemaker placement. This will also help assess and assist with atrial fibrillation management. (9) Paroxysmal atrial fibrillation: Status: Acute Gerardo Youssef DISTRICT OPERATIONS MANAGER, DISTRICT OPERATIONS MANAGER-C: Patient's 30-day event monitor has predominantly showed atrial fibrillation. Due to pauses, we will not reinitiate beta-loly therapy. He will continue with Eliquis therapy for CVA protection. Over time, we will continue to monitor associated symptoms and consider antiarrhythmic medication or cardioversion as necessary. We will continue to follow. Plan Details Additional Comments: Thank you for allowing us to participate in the patients plan of care, if you have any questions please do not hesitate to call. This note was generated using a voice recognition system and there may be incorrect words, spelling or punctuation that were not noted when reviewing the office note prior to saving. 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 delaying the surgery/procedure. It is not possible to know either the risk of delaying the surgery or procedure or chance of getting an infection with perfect accuracy, but a joint decision was made between the patient and the surgeon/proceduralist ???to proceed at this time with the scheduled surgery/procedure as indicated on the consent form. Coding Level of Care Code Off vis,est,level 4 Diagnoses H/O coronary artery bypass surgery Z95.1 Atherosclerosis of coronary artery of [place] heart without angina pectoris I25.10 Coronary Disease-Associated Artery/Lesion type: [place] artery Chronic diastolic (congestive) heart failure I50.32 Nonrheumatic aortic (valve) stenosis with insufficiency I35.2 Essential (primary) hypertension I10 Pure hypercholesterolemia E78.00 Stenosis of left carotid artery I65.22 Sinus pause I45.5 Paroxysmal atrial fibrillation I48.0 Coding Level of Care Code Off vis,est,level 4 Diagnoses H/O coronary artery bypass surgery Z95.1 Atherosclerosis of coronary artery of [place] heart without angina pectoris I25.10 Coronary Disease-Associated Artery/Lesion type: [place] artery Chronic diastolic (congestive) heart failure I50.32 Nonrheumatic aortic (valve) stenosis with insufficiency I35.2 Essential (primary) hypertension I10 Pure hypercholesterolemia E78.00 Stenosis of left carotid artery I65.22 Sinus pause I45.5 Paroxysmal atrial fibrillation I48.0 Supplemental Info Supplemental Information Echocardiogram from 10/12/2020: Interpretation Summary Normal LV size. Left ventricular systolic function is normal. The estimated ejection fraction is 55 %. Mean aortic valve gradient 16 mmHg. Mild (1+) eccentric aortic valve insufficiency. Calculated aortic valve area (continuity equation) is 1.6 cm2. The left atrium is mildly enlarged. Stress test from 01/13/2021: Conclusion: Normal pharmacologic myocardial perfusion stress test. Preserved ejection fraction. Atrial fibrillation. Carotid duplex ultrasound from 01/13/2021: Interpretation Summary Mild (<50%) stenosis right extracranial internal carotid. Moderate (50-69%) stenosis left extracranial internal carotid. Flow within the vertebral arteries is antegrade bilaterally. Labs: LDL Cholesterol 131 mg/dL (0-130) H HDL Cholesterol 34 mg/dL (40-) L Triglycerides 183 mg/dL (-199) VLDL Cholesterol 37 mg/dL (5-40) Diagnostics: Echocardiogram Stress Test NM Stress Test Chest X-Ray Pulmonary: No Data to Display 03/23/21 7731 <Electronically signed by Arnie Youssef NP DISTRICT OPERATIONS MANAGER-C> Date Arnie Youssef NP DISTRICT OPERATIONS MANAGER-C Fredisignro Signature: Date (if applicable) CC: Dr. Laura Rodriguez, DO Laura Rodriguez DO Work Phone: Start: 02-07-2021 End: 02-09-2021 Comments: See Note; NOTES: [facility] [address] [place] [address] Lower Ext Art Exam w/o Exercis 02/07/21 1400 MR#: [id number] Acct: [id number] Name: REMY BLACKBURN Rep #: [id number] : 1940 80 From: Stevo Holman MD Attending Dr: Arnie Youssef NP-C Status: REG CLI Ordering Dr: Arnie Youssef NP DISTRICT OPERATIONS MANAGER-C Date: 02/07/21 Location: [facility] Sex: M C Admitted: Reason For Study: Claudication Procedure A bilateral lower extremity continuous wave Doppler with analog waveform analysis,segmental pressures,and ankle brachial indexes without exercise. Left Segmental Pressures Left brachial= 132mmHg. Left posterior tibial artery = 176mmHg. Left dorsalis pedis artery = 165mmHg. Right Segmental Pressures Right brachial= 135mmHg. Right posterior tibial artery = 140mmHg. Right dorsalis pedis artery = 154mmHg. Indices The right ankle brachial index by the posterior tibial artery is 1.04. The right ankle brachial index by the dorsalis pedis is 1.14. The left ankle brachial index by the posterior tibial artery is 1.30. The left ankle brachial index by the dorsalis pedis is 1.22. VL/Lower Ext Art Exam w/o Exercis Interpretation Summary No evidence of occlusive disease at rest with an HARPER 1.14 on the right and 1.3 on the left. Bilateral triphasic flow. _ Ordering Physician: Arnie Youssef Referring Physician: Arnie Youssef Performed By: Harriet Youssef RDCS/RVT 02/09/21727 Date Stevo Holman MD CC: DASH Youssef; Dr. Laura Rodriguez DO Date Dictated: 02/07/21 1400 Date Transcribed: 02/09/21727 Plumber And Tinner: Signed Laura Rodriguez DO Work Phone: Start: 01-28-2021 End: 01-28-2021 Comments: See Note; NOTES: [facility] [address] [place] [address]. [address] [place], [place] [id number] OFFICE VISIT Date of Service: 01/28/21 MR#: [id number] Acct: [id number] Name: REMY BLACKBURN Rep #: [id number] : 1940 Provider: DASH lam Age/Sex: 80/M Location: [facility] [place] Status: Signed [facility] History of Present Illness Details: REMY BLACKBURN, is a 80 M who presents to the office today for a cardiovascular followup. He has a history of coronary artery disease with bypass surgery in 2000. He did have a left internal mammary artery to the left anterior descending artery and diagonal as a sequential graft, radial graft to the obtuse marginal branch, and saphenous vein graft to the right coronary artery. He also has a history of hypertension, hyperlipidemia, left carotid stenosis estimated at 50 to 70%. He presents for follow-up visit. He states improved SOB since last office visit with increase in HCTZ. He states leg ache with activity that improves with rest. He does acknowledge lightheadedness with quick position changes and bending forward. He continues with fatigue. He denies any chest, arm, jaw, or neck discomfort. He denies orthopnea, PND, or shortness of breath at rest. He denies any large sudden weight gain. He denies any presyncope or syncope. Intake Vital Signs 01/28/21 11:55 Height 6 ft Weight: 188 lb BMI 25.4 BP 158/65 H Blood Pressure Location Lt brachial Position Sitting Respiration 14 Pulse 77 Pulse Source NIBP Intake Visit Reasons: 4 wk fu Allergies No Known Allergies Allergy (Verified 01/06/21 14:33) Medications aspirin 81 mg PO DAILY@0800 04/18/14 [History Confirmed 01/28/21] nitroglycerin 0.4 mg SUBLINGUAL Q5M PRN 04/18/14 [History Confirmed 01/28/21] dutasteride 0.5 mg capsule 0.5 mg PO DAILY 04/16/18 [History Confirmed 01/28/21] esomeprazole magnesium 40 mg capsule,delayed release 40 mg PO DAILY #90 cap 02/19/20 [Rx Confirmed 01/28/21] pravastatin 80 mg tablet 80 mg PO QHS #90 tab 02/20/20 [Rx Confirmed 01/28/21] losartan 100 mg tablet 100 mg PO DAILY #90 tab 08/31/20 [Rx Confirmed 01/28/21] oxybutynin chloride 10 mg tablet,extended release 24 hr 10 mg PO DAILY tab 01/06/21 [History Confirmed 01/28/21] hydrochlorothiazide 25 mg tablet 25 mg PO DAILY #90 tab 01/28/21 [Rx Confirmed 01/28/21] [facility] Medical History (Updated 01/28/21 @ 12:19 by Arnie Youssef DISTRICT OPERATIONS MANAGER, DISTRICT OPERATIONS MANAGER-C) Atherosclerosis of coronary artery of [place] heart without angina pectoris Chronic diastolic (congestive) heart failure Dizziness and giddiness Dyspnea on exertion Edema Essential (primary) hypertension 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 Pulmonary embolism Pure hypercholesterolemia Secondary pulmonary arterial hypertension Shortness of breath Stenosis of left carotid artery TIA (transient ischemic attack) Surgical History H/O coronary artery bypass surgery (06/2001) History of hip replacement History of skin graft 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 Family History (Reviewed 01/28/21 @ 12:03 by Arnie Youssef DISTRICT OPERATIONS MANAGER, DISTRICT OPERATIONS MANAGER-C) Father CAD (coronary artery disease) Mother CAD (coronary artery disease) Brother CAD (coronary artery disease) Social History (Reviewed 01/28/21 @ 12:03 by Arnie Youssef DISTRICT OPERATIONS MANAGER, DISTRICT OPERATIONS MANAGER-C) Smoking Status: Never smoker alcohol intake: never substance use type: does not use caffeine: Yes Type: coffee Number of servings: 2 ROS Const Const: Positive for fatigue; Negative for weakness, body ache, fever(s) or chills ENT ENT: Negative for dizziness or Nosebleed/epistaxis Cardio Chest Pain: No Palpitations: No Edema: None Muscle aches with walking: Bilateral Resp Respiratory: Positive for SOB with activity; Negative for SOB at rest, SOB orthopnea SOB lying down, Cough or paroxysmal nocturnal dyspnea GI GI: Negative nausea, vomiting blood/hematemesis, bright, red blood in stools or black,tarry stools : Negative for hematuria or frequent nighttime urination/ nocturia Musc Musc: Negative for muscle aches/ myalgia Skin Skin: Negative non-healing lesions or rash Neuro Neuro: Negative for dizziness, lightheadedness, near syncope, syncope, orthostatic symptoms or weakness Endo Endo: Positive for fatigue Allergy Allergy/Immunology: Negative for rash Cardiology Exam Const Appearance: cooperative, healthy appearing, comfortable and no acute distress Nutritional Appearance: well nourished and overweight Orientation: alert, awake and oriented x3 Head Head: normal to inspection Ears: hearing grossly normal bilaterally Nose: external nose normal Face and Sinus: face symmetric Mouth: oral mucosae normal Eyes General: appearance normal, both eyes and all related structures Eyelids: eyelids normal EOM: EOM intact bilaterally Neck Neck: normal visual inspection and no JVD Carotids: normal carotid upstroke Chest Chest inspection: normal inspection of the chest, symmetric chest movement and normal respiratory effort; Negative cough Auscultation: Bilateral: Clear to Auscultation Cardio Rate: regular rate Rhythm: regular rhythm Heart sounds: S1 normal, S2 normal and murmur; Negative rub or gallop Murmur: Grade 1/6, soft and BEN loudest primary aortic area GI GI: normal to inspection Neuro General: patient alert, patient awake, patient oriented x3 and CN's II-XI intact bilaterally Skin Skin: no rashes or lesions noted Extremities Pulses: Normal: Right Posterior Tibial Pulse, Left Posterior Tibial Pulse, Right Radial Pulse and Left Radial Pulse Lower Extremity Edema: None: Bilateral Psych Psychological: normal affect Assessment and Plan Assessment and Plan (1) H/O coronary artery bypass surgery: Status: Resolved Comment: CABG x 4 Sequential ARREAGA to LAD and D1, radial graft to OM1, SVG to RCA 06/2001 Plan: His most recent stress test on 01/13/2021 was negative for ischemia. He denies any chest, arm, jaw, or neck discomfort suggestive of angina. His shortness of breath is slightly improved since last office visit. At this time, he will continue current medical therapy and we will continue to monitor. Patient was asked to complete a 30-day event monitor to evaluate paroxysmal atrial fibrillation. During his stress test atrial fibrillation was noted. Depending on frequency and [id number] score, we will consider anticoagulant therapy. His heart rate is well controlled today. (2) Atherosclerosis of coronary artery of [place] heart without angina pectoris: Status: Chronic Qualifiers: Coronary Disease-Associated Artery/Lesion type: [place] artery Qualified Code(s): I25.10 - Atherosclerotic heart disease of [place] coronary artery without angina pectoris Plan: He will continue current medical therapy. (3) Chronic diastolic (congestive) heart failure: Status: Chronic Plan: He does knowledge improvement in symptoms since increasing hydrochlorothiazide therapy. However, his shortness of breath remains. At this time, he will continue current medical therapy and we will continue to monitor. We will consider laboratory evaluation or Lasix therapy in the future patient overall progress. (4) Nonrheumatic aortic (valve) stenosis with insufficiency: Status: Chronic Plan: This appears stable. He will continue current medical therapy. (5) Essential (primary) hypertension: Status: Chronic Plan: His blood pressure slight elevated in office. It appears to fluctuate at home. Over time, depending on overall progress, we could consider tighter blood pressure control with additional agents such as amlodipine. (6) Pure hypercholesterolemia: Status: Chronic Plan: He will continue current medical therapy. (7) Stenosis of left carotid artery: Status: Chronic Plan: This was evaluated since last office visit. He will continue current medical therapy. Plan Details Other Medications: Changed: From: hydrochlorothiazide 25 mg (2 x 12.5 mg) PO DAILY 60 tabs 4RF To: hydrochlorothiazide 25 mg PO DAILY 90 tabs 4RF Other Orders: Orders: 30 Day Event Recorder Preventi Today G45.9, I48.0 Lower Ext Art Exam w/o Exercis Today I73.9 Additional Comments: Thank you for allowing us to participate in the patients plan of care, if you have any questions please do not hesitate to call. This note was generated using a voice recognition system and there may be incorrect words, spelling or punctuation that were not noted when reviewing the office note prior to saving. Coding Level of Care Code Off vis,est,level 4 Diagnoses H/O coronary artery bypass surgery Z95.1 Atherosclerosis of coronary artery of [place] heart without angina pectoris I25.10 Coronary Disease-Associated Artery/Lesion type: [place] artery Chronic diastolic (congestive) heart failure I50.32 Nonrheumatic aortic (valve) stenosis with insufficiency I35.2 Essential (primary) hypertension I10 Pure hypercholesterolemia E78.00 Stenosis of left carotid artery I65.22 Coding Level of Care Code Off vis,est,level 4 Diagnoses H/O coronary artery bypass surgery Z95.1 Atherosclerosis of coronary artery of [place] heart without angina pectoris I25.10 Coronary Disease-Associated Artery/Lesion type: [place] artery Chronic diastolic (congestive) heart failure I50.32 Nonrheumatic aortic (valve) stenosis with insufficiency I35.2 Essential (primary) hypertension I10 Pure hypercholesterolemia E78.00 Stenosis of left carotid artery I65.22 Supplemental Info Supplemental Information Echocardiogram from 10/12/2020: Interpretation Summary Normal LV size. Left ventricular systolic function is normal. The estimated ejection fraction is 55 %. Mean aortic valve gradient 16 mmHg. Mild (1+) eccentric aortic valve insufficiency. Calculated aortic valve area (continuity equation) is 1.6 cm2. The left atrium is mildly enlarged. Stress test from 01/13/2021: Conclusion: Normal pharmacologic myocardial perfusion stress test. Preserved ejection fraction. Atrial fibrillation. Carotid duplex ultrasound from 01/13/2021: Interpretation Summary Mild (<50%) stenosis right extracranial internal carotid. Moderate (50-69%) stenosis left extracranial internal carotid. Flow within the vertebral arteries is antegrade bilaterally. Labs: LDL Cholesterol 131 mg/dL (0-130) H HDL Cholesterol 34 mg/dL (40-) L Triglycerides 183 mg/dL (-199) VLDL Cholesterol 37 mg/dL (5-40) Diagnostics: Echocardiogram Stress Test NM Stress Test Chest X-Ray Pulmonary: No Data to Display 01/28/21 1250 <Electronically signed by Arnie Youssef NP, NP-C> Date Arnie Youssef NP DISTRICT OPERATIONS MANAGER-C Cosigner Signature: Date (if applicable) CC: DO Laura Roa DO Work Phone: Start: 01-13-2021 End: 01-13-2021 Comments: See Note; NOTES: [facility] [address] [place] [id number] MR#: [id number] Acct: [id number] Name: REMY BLACKBURN Rep #: [id number] : 1940 80 From: Benito Diaz MD Primary Care: Dr. Laura Rodriguez, Status: REG CLI Referring Dr: Arnie Youssef NP, NP-Sharon Sex: M C Stress Test Report Pharmacologic myocardial perfusion stress test. 80-year-old male with a history of coronary artery disease status post carotid bypass surgery and atrial fibrillation. Stress protocol: Resting EKG demonstrates sinus bradycardia with a rate of 52 bpm normal intervals are noted. Resting blood pressure is 142/70 mmHg. 0.4 mg of regadenoson was infused per usual protocol followed by rapid venous flush injection continuous EKG monitoring was performed. The patient maintained atrial fibrillation throughout the recording. The maximum heart rate was 75 bpm which was 53% of max infected heart rate the maximum workload was 1 metabolic equivalent. At rest there were no ST or T wave changes noted to suggest abnormal flow reserve and at peak infusion nonspecific ST changes were noted with did not meet the criteria for abnormal flow reserve. No clinical angina was noted the resting blood pressure is 142/70 mmHg final blood pressure is 138/70 mmHg. Myocardial perfusion protocol. 11.3 mCi of technetium 99m sestamibi was injected at rest. 0.4 mg of regadenoson was infused per usual protocol. At peak infusion 31.3 mCi of technetium 99m sestamibi was injected stress images were obtained stress and rest images were reconstructed in comparing the short axis vertical long and horizontal long axis. Gated images were also obtained per Perfusion SPECT analysis: Review of the stress images demonstrate normal uptake of tracer noted in all areas of the myocardium. There is probable mild diminution of uptake noted in the distal anterior wall. The resting images similarly demonstrate normal uptake of tracer noted in all areas of the myocardium. The mild diminution in the distal anterior mcfarlane persists. No areas of reversibility are noted suggest ischemia and no previous infarct is noted. Gated SPECT analysis: The gated ejection fraction is 69%. Conclusion: Normal pharmacologic myocardial perfusion stress test. Preserved ejection fraction. Atrial fibrillation. 01/13/211718 <Electronically signed by Benito Diaz MD> Date Benito Diaz MD CC: DISTRICT OPERATIONS MANAGER-C Arnie Youssef; Dr. Laura Rodriguez DO Date Dictated: 01/13/211715 Date Transcribed: 01/13/211715 Plumber And Tinner: [place] Signed Laura Rodriguez DO Work Phone: Start: 01-13-2021 End: 01-19-2021 Comments: See Note; NOTES: [facility] [address] [place] [address]. [place] [address] Carotid Duplex Ultrasound 01/13/21 0847 MR#: [id number] Acct: [id number] Name: REMY BLACKBURN Rep #: [id number] : 1940 80 From: Stevo Holman MD Attending Dr: Arnie Youssef, DISTRICT OPERATIONS MANAGER-C Status: REG CLI Ordering Dr: Arnie Youssef NP DISTRICT OPERATIONS MANAGER-C Date: 01/13/21 Location: [facility] Sex: M C Admitted: Reason For Study: Lightheadedness Rt. Velocities/BP Lt. Velocities/BP Prox CCA 61.7/10.8 cm/sec. Prox CCA 77.2/10.2 cm/sec. Mid CCA 60.4/8.2 cm/sec. Mid CCA 57.5/6.9 cm/sec. Dist CCA 55.2/12.1 cm/sec. Dist CCA 53.1/9.1 cm/sec. Prox ICA 53.9/8.2 cm/sec. Prox ICA 77.3/24.5 cm/sec. Mid ICA 76/16 cm/sec. Mid ICA 135.7/27.9 cm/sec. Dist ICA 96.3/13.9 cm/sec. Dist ICA 72.8/15.1 cm/sec. Rt. ICA/CCA = 1.59. Lt. ICA/CCA = 2.36. Prox ECA 95.6 cm/sec. Prox ECA 66.2 cm/sec. Rt. Vert. 64.1 cm/sec. Lt. Vert. 81.4/12.6 cm/sec. Right Extracranial There is intimal thickening but no significant atherosclerotic plaque noted in the right common carotid artery. There is heterogeneous, irregular atherosclerotic plaque noted in the right internal carotid artery. There is heterogeneous, smooth atherosclerotic plaque noted in the right external carotid artery. Abormal waveform morphology noted in the right vertebral artery. There is heterogeneous, irregular atherosclerotic plaque noted in the right bulb. Left Extracranial There is homogeneous, smooth atherosclerotic plaque noted in the left common carotid artery. There is heterogeneous, irregular atherosclerotic plaque noted in the left internal carotid artery. There is heterogeneous, irregular atherosclerotic plaque noted in the left external carotid artery. Antegrade flow is noted in the left vertebral artery. There is heterogeneous, irregular atherosclerotic plaque noted in the left bulb. Procedure Carotid Duplex 53111. This is a Carotid Duplex examination using B-mode, color flow and specral Doppler. Exam performed in department. VL/Carotid Duplex Ultrasound Interpretation Summary Mild (<50%) stenosis right extracranial internal carotid. Moderate (50-69%) stenosis left extracranial internal carotid. Flow within the vertebral arteries is antegrade bilaterally. _ Ordering Physician: Arnie Youssef Referring Physician: Laura Rodriguez M.D. Performed By: Francisca Cabrera RVT 01/19/2105 Date Stevo Holman MD CC: DASH Youssef; Dr. Laura Rodriguez DO Date Dictated: 01/13/2147 Date Transcribed: 01/19/21804 Plumber And Tinner: Signed Laura Rodriguez DO Work Phone: Start: 01-06-2021 End: 01-06-2021 Comments: See Note; NOTES: [facility] [address] [place] [address]. [address] [place] [address] OFFICE VISIT Date of Service: 01/06/21 MR#: [id number] Acct: [id number] Name: REMY BLACKBURN Rep #: [id number] : 1940 Provider: DASH lam Age/Sex: 80/M Location: [facility] [place] Status: Signed HPI HPI History of Present Illness Details: REMY BLACKBURN, is a 80 M who presents to the office today for a cardiovascular followup. He has a history of coronary artery disease with bypass surgery in 2000. He did have a left internal mammary artery to the left anterior descending artery and diagonal as a sequential graft, radial graft to the obtuse marginal branch, and saphenous vein graft to the right coronary artery. He also has a history of hypertension, hyperlipidemia, left carotid stenosis estimated at 50 to 70%. He presents for follow-up visit. He acknowledges increase in fatigue. He denies chest, arm, jaw, or neck discomfort. He acknowledges shortness breath activity in which he feels that he is getting short of breath quicker. He does acknowledge lightheadedness with quick position changes and bending forward. Intake Vital Signs 01/06/21 14:30 Height 6 ft Weight: 192 lb BMI 26.0 BP 142/76 H Blood Pressure Location Lt brachial Position Sitting Respiration 16 Pulse 76 Pulse Source Auscultation Intake Visit Reasons: 3 m fu Automotive Artist Required: No Accompanied by: None Is patient in pain?: No Allergies No Known Allergies Allergy (Verified 01/06/21 14:33) Medications aspirin 81 mg PO DAILY@0800 04/18/14 [History Confirmed 01/06/21] nitroglycerin 0.4 mg SUBLINGUAL Q5M PRN 04/18/14 [History Confirmed 01/06/21] dutasteride 0.5 mg capsule 0.5 mg PO DAILY 04/16/18 [History Confirmed 01/06/21] esomeprazole magnesium 40 mg capsule,delayed release 40 mg PO DAILY #90 cap 02/19/20 [Rx Confirmed 01/06/21] pravastatin 80 mg tablet 80 mg PO QHS #90 tab 02/20/20 [Rx Confirmed 01/06/21] hydrochlorothiazide 12.5 mg tablet 12.5 mg PO DAILY #60 tab 05/17/20 [Rx Confirmed 01/06/21] losartan 100 mg tablet 100 mg PO DAILY #90 tab 08/31/20 [Rx Confirmed 01/06/21] oxybutynin chloride 10 mg tablet,extended release 24 hr 10 mg PO DAILY tab 01/06/21 [History Confirmed 01/06/21] Ejection fraction %: 55 to 59 PFSH Medical History Atherosclerosis of coronary artery of [place] heart without angina pectoris Chronic diastolic (congestive) heart failure Dizziness and giddiness Dyspnea on exertion Edema Essential (primary) hypertension 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 Pulmonary embolism Pure hypercholesterolemia Secondary pulmonary arterial hypertension Shortness of breath Stenosis of left carotid artery TIA (transient ischemic attack) Surgical History H/O coronary artery bypass surgery (06/2001) History of hip replacement History of skin graft 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 Family History Father CAD (coronary artery disease) Mother CAD (coronary artery disease) Brother CAD (coronary artery disease) Social History Smoking Status: Never smoker alcohol intake: never substance use type: does not use caffeine: Yes Type: coffee Number of servings: 2 ROS Const Const: Positive for fatigue (Get tired faster than previous); Negative for weakness, headache(s), frequent falls, difficulty sleeping or excessive sweating Eyes Eyes: Negative for loss of peripheral vision, transient loss of vision, blurry vision, double vision or tunnel vision ENT ENT: Negative for headache(s), dizziness, Nosebleed/epistaxis or balance problems Cardio Chest Pain: No Palpitations: No Edema: None Muscle aches with walking: None Resp Respiratory: Positive for SOB with activity (Gets short of breath quicker); Negative for SOB at rest, SOB orthopnea SOB lying down, Cough or paroxysmal nocturnal dyspnea GI GI: Negative nausea, vomiting, heartburn or black,tarry stools : Negative for hematuria Musc Musc: Positive for joint pain (Pain in right hip down leg. Related to fx 4-5 years ago); Negative for muscle aches/ myalgia, muscle weakness or balance problems Skin Skin: Negative non-healing lesions, rash or unusual bruising Neuro Neuro: Positive for lightheadedness (when bending over or standing quickly); Negative for dizziness, near syncope, syncope, frequent falls, headache(s), weakness, blurry vision, double vision or lack of coordination Emmanuel Hematologic/Lymphatic: Negative for easy bleeding or easy bruising Endo Endo: Positive for fatigue (Get tired faster than previous); Negative for excessive sweating or increased thirst/drinking Psych Psych: Negative for anxiety or depression Allergy Allergy/Immunology: Negative for hives and Negative for rash Cardiology Exam Const Appearance: cooperative, healthy appearing, comfortable and no acute distress Nutritional Appearance: average body habitus and well nourished Orientation: alert, awake and oriented x3 Head Head: normal to inspection Ears: hearing grossly normal bilaterally Nose: external nose normal Face and Sinus: face symmetric Mouth: oral mucosae normal Eyes General: appearance normal, both eyes and all related structures Eyelids: eyelids normal EOM: EOM intact bilaterally Neck Neck: normal visual inspection and no JVD Carotids: normal carotid upstroke Chest Chest inspection: normal inspection of the chest, symmetric chest movement and normal respiratory effort; Negative cough Auscultation: Bilateral: Clear to Auscultation Cardio Rate: regular rate Rhythm: regular rhythm Heart sounds: S1 normal and S2 normal; Negative rub, gallop or murmur GI GI: normal to inspection Neuro General: patient alert, patient awake, patient oriented x3 and CN's II-XI intact bilaterally Skin Skin: no rashes or lesions noted Extremities Pulses: Normal: Right Radial Pulse and Left Radial Pulse and Diminished: Right Posterior Tibial Pulse and Left Posterior Tibial Pulse Lower Extremity Edema: None: Right and Trace: Left Psych Psychological: normal affect Assessment and Plan Assessment and Plan (1) Atherosclerosis of coronary artery of [place] heart without angina pectoris: Status: Chronic Qualifiers: Coronary Disease-Associated Artery/Lesion type: [place] artery Qualified Code(s): I25.10 - Atherosclerotic heart disease of [place] coronary artery without angina pectoris Orders: Orders: Nuclear Stress Test - Chemical Today Plan - Arnie Youssef DISTRICT OPERATIONS MANAGER, DISTRICT OPERATIONS MANAGER-C: Patient denies any chest, arm, jaw, or neck discomfort. However, he does acknowledge worsening shortness of breath and fatigue since last office visit. At this time, these are thought to be anginal equivalents. His echocardiogram after last office visit showed a preserved ejection fraction. Thus, he will proceed with stress test to assess further. Based on results, further recommendation be made. (2) H/O coronary artery bypass surgery: Status: Resolved Comment: CABG x 4 Sequential ARREAGA to LAD and D1, radial graft to OM1, SVG to RCA 06/2001 Orders: Orders: Nuclear Stress Test - Chemical Today Plan - Arnie Youssef DISTRICT OPERATIONS MANAGER, DISTRICT OPERATIONS MANAGER-C: He will continue current medical therapy. He will proceed with stress test to help assess further. (3) Chronic diastolic (congestive) heart failure: Status: Chronic Orders: Orders: Nuclear Stress Test - Chemical Today Plan - Arnie Youssef DISTRICT OPERATIONS MANAGER, DISTRICT OPERATIONS MANAGER-C: He does acknowledge ongoing shortness of breath. This appears worse since last office visit. His echocardiogram September 2020 showed ejection fraction of 55%, and mild aortic valve insufficiency. He appears to be in a euvolemic state on exam. We will proceed with coronary artery disease evaluation to assess shortness of breath. We can consider increasing hydrochlorothiazide therapy, bearing in mind his concerns regarding lightheadedness with position changes. We await for further test results for further recommendation. (4) Essential (primary) hypertension: Status: Chronic Orders: Orders: Nuclear Stress Test - Chemical Today Gerardo - Arnie Youssef NP, DISTRICT OPERATIONS MANAGER-C: His blood pressure is slightly elevated today in office. It appears to be consistent with readings from home. Options may include increasing hydrochlorothiazide or adding amlodipine therapy. Trey denson, patient is concerned regarding lightheadedness with position changes. Thus, we will hold off on adding medication until further work-up. (5) Pure hypercholesterolemia: Status: Chronic Orders: Orders: Nuclear Stress Test - Chemical Today Plan - Arnie Youssef DISTRICT OPERATIONS MANAGER, DISTRICT OPERATIONS MANAGER-C: He will continue current statin medication, pravastatin 80 mg p.o. nightly. (6) Lightheadedness: Status: Acute Orders: Orders: Carotid Duplex Ultrasound Today Plan - Arnie Youssef DISTRICT OPERATIONS MANAGER, DISTRICT OPERATIONS MANAGER-C: This is one of his main concerns today. The exact etiology is unclear. He was asked to go carotid duplex ultrasound to evaluate carotid artery disease component. If this is negative, will consider Holter monitor discern if there is any electrical component. Plan Details Other Orders: Orders: Carotid Duplex Ultrasound Today I65.22 Additional Comments: He will return to office in the near future to evaluate test results as well as symptoms. At that time, further treatment/recommendations will be made. Thank you for allowing us to participate in the patients plan of care, if you have any questions please do not hesitate to call. This note was generated using a voice recognition system and there may be incorrect words, spelling or punctuation that were not noted when reviewing the office note prior to saving. 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 Left ventricular systolic function is normal. The estimated ejection fraction is 55 %. Mean aortic valve gradient 16 mmHg. Mild (1+) eccentric aortic valve insufficiency. Calculated aortic valve area (continuity equation) is 1.6 cm2. The left atrium is mildly enlarged. Carotid duplex ultrasound from May 2016 showed moderate stenosis of left and right extracranial internal carotid carotids Carotid duplex ultrasound from October of [address]59 demonstrated; Mild (<50%) stenosis right extracranial internal carotid. Moderate (50-69%) stenosis left extracranial internal carotid. Flow within the vertebral arteries is antegrade bilaterally. Echocardiogram from July 2013 showed an estimated ejection fraction of 50%, mild mitral valve insufficiency, mild to moderate aortic valve insufficiency, and an RVSP of 50 mmHg. Echocardiogram in October 2018 demonstrated Normal LV size. The estimated ejection fraction is 50 %. Left ventricular systolic function is lower limits of normal. The left atrium is mildly enlarged. Mild-Moderate (1-2+) eccentric mitral valve insufficiency. Mild to moderate (1-2+) tricuspid valve insufficiency. Mean aortic valve gradient 9.4 mmHg. Compared to previous study, the left ventricular systolic function is the same. Cardiovascular stress test from June 2013 was negative for myocardial induced ischemia and reported a preserved ejection fraction. Pharmacologic nuclear stress test in October 2018 demonstrated: Normal pharmacologic myocardial perfusion stress test. Preserved ejection fraction. Labs: LDL Cholesterol 131 mg/dL (0-130) H HDL Cholesterol 34 mg/dL (40-) L Triglycerides 183 mg/dL (-199) VLDL Cholesterol 37 mg/dL (5-40) Diagnostics: Echocardiogram Stress Test NM Stress Test Chest X-Ray Pulmonary: No Data to Display 01/06/21 1510 <Electronically signed by Arnie Youssef NP, NP-C> Date Arnie Youssef NP, NP-C Cosigner Signature: Date (if applicable) CC: Dr. Laura Rodriguez, DO Laura Rodriguez DO Work Phone: Start: 10-12-2020 End: 10-12-2020 Comments: See Note; NOTES: [facility] [address] [place] [address] Echo Complete 10/12/20 1004 MR#: [id number] Acct: [id number] Name: REMY BLACKBURN Rep #: [id number] : 1940 80 From: Benito Diaz MD Attending Dr: Arnie Youssef DISTRICT OPERATIONS MANAGER-C Status: REG CLI Ordering Dr: Arnie Youssef DISTRICT OPERATIONS MANAGER DISTRICT OPERATIONS MANAGER-C Date: 10/12/20 Location: CVS Sex: M C Admitted: Reason For Study: SOB Procedure This was a 2D Doppler, Color Flow transthoracic echocardiogram. Exam performed in department. Left Ventricle Normal LV size. Left ventricular systolic function is normal. The estimated ejection fraction is 55 %. No regional wall motion abnormalities noted. Right Ventricle Normal RV size. Normal systolic function. Atria The left atrium is mildly enlarged. Normal right atrium. Mitral Valve Normal mitral valve. Mild-Moderate (1-2+) eccentric mitral valve insufficiency. Tricuspid Valve Normal tricuspid valve. Mild to moderate (1-2+) tricuspid valve insufficiency. Pulmonary artery systolic pressure is 38 mmHg. Aortic Valve Trisinus/trileaflet aortic valve. Mild focal aortic valve calcification. Peak aortic valve gradient 22 mmHg. Mean aortic valve gradient 16 mmHg. Calculated aortic valve area (continuity equation) is 1.6 cm2. Mild (1+) eccentric aortic valve insufficiency. Pericardium/Pleural No pericardial effusion. MMode/2D Measurements Calculations LVIDd: 4.6 cm IVSd: 1.0 cm LVOT diam: 2.0 cm LVIDs: 3.5 cm LVPWd: 1.1 cm LVOT area: 3.2 cm2 RVDd: 3.5 cm FS: 24.4 % Ao root diam: 3.2 cm LAV(MOD-bp): 71.4 ml LA A4 area: 24.4 cm2 LAV(MOD-bp) Indexed: 34.4 ml/m2 LAV(MOD-sp2): 63.2 ml LAV(MOD-sp4): 73.2 ml LA dimension(2D): 4.9 cm RA A4 area: 18.6 cm2 Doppler Measurements Calculations MV E max memo: 90.0 cm/sec Ao V2 max: 235.3 cm/sec AI max memo: 398.5 cm/sec Ao max P.3 mmHg AI max P.6 mmHg Ao V2 mean: 165.3 cm/sec Ao mean P.3 mmHg AI dec slope: 269.9 cm/sec2 Ao V2 VTI: 53.8 cm AI P1/2t: 432.4 msec ERIN(I,D): 1.5 cm2 ERIN(V,D): 1.6 cm2 LV V1 max: 116.5 cm/sec SV(LVOT): 82.1 ml PA V2 max: 72.0 cm/sec LV V1 max P.4 mmHg LV V1 mean P.7 mmHg LV V1 mean: 77.6 cm/sec LV V1 VTI: 25.3 cm TR max memo: 290.4 cm/sec TR max P.9 mmHg Interpretation Summary Normal LV size. Left ventricular systolic function is normal. The estimated ejection fraction is 55 %. Mean aortic valve gradient 16 mmHg. Mild (1+) eccentric aortic valve insufficiency. Calculated aortic valve area (continuity equation) is 1.6 cm2. The left atrium is mildly enlarged. _ Ordering Physician: Arnie Youssef/Benito Diaz Referring Physician: Laura Rodriguez M.D. Performed By: Teresa Jon RDCS 10/12/20 1330 Date Benito Diaz MD CC: DASH Youssef; Dr. Laura Rodriguez DO Date Dictated: 10/12/20 1004 Date Transcribed: 10/12/20 1330 Plumber And Tinner: Ramses Rodriguez DO Work Phone: Start: 09-30-2020 End: 09-30-2020 Comments: See Note; NOTES: [facility] [address] [place], [place] [address]. [address] [place] [address] OFFICE VISIT Date of Service: 09/30/20 MR#: [id number] Acct: [id number] Name: REMY BLACKBURN Rep #: [id number] : 1940 Provider: DASH lam Age/Sex: 80/M Location: [facility] [place] Status: Signed [facility] History of Present Illness Details: REMY BLACKBURN, is a 80 M who presents to the office today for a cardiovascular followup. He has a history of coronary artery disease with bypass surgery in 2000. He did have a left internal mammary artery to the left anterior descending artery and diagonal as a sequential graft, radial graft to the obtuse marginal branch, and saphenous vein graft to the right coronary artery. He also has a history of hypertension, hyperlipidemia, left carotid stenosis estimated at 50 to 70%. He presents for follow-up visit. He states his blood pressure as been steady. This tends to fluctuate. Pt denies chest, arm, jaw, or neck discomfort. His exercise tolerance is stable. Pt denies symptoms of palpitations, dizziness, near syncopal or syncopal episodes. Pt denies edema or claudication issues. Pt. denies orthopnea, PND, fever, chills, blood in urine, blood in stool, epistaxis, myalgia, or unexplainable fatigue. He states SOB when carrying firewood. This improves with rest. He states lightheadedness after an hour of working. This is not new or worsening. He states if he kept going that he may get near syncope. Intake Vital Signs 09/30/20 Height 6 ft 09/30/20 Weight: 192 lb 09/30/20 BMI 26.0 09/30/20 BP 155/75 H 09/30/20 Blood Pressure Location Lt brachial 09/30/20 Position Sitting 09/30/20 Respiration 18 09/30/20 Pulse 73 09/30/20 Pulse Source Monitor 09/30/20 Pulse Oximetry (%) 96 Intake Visit Reasons: 6 M FU Automotive Artist Required: No Accompanied by: None Is patient in pain?: No Allergies No Known Allergies Allergy (Verified 09/30/20 13:38) Medications Aspirin [Aspirin, Baby] 81 mg PO DAILY@0800 04/18/14 [History Confirmed 09/30/20] Nitroglycerin (INPATIENT USE) [Nitrostat] 0.4 mg SUBLINGUAL Q5M PRN 04/18/14 [History Confirmed 09/30/20] oxybutynin chloride 5 mg tablet,extended release 24 hr 5 mg PO QDAY 09/06/17 [History Confirmed 09/30/20] dutasteride 0.5 mg capsule 0.5 mg PO DAILY 04/16/18 [History Confirmed 09/30/20] esomeprazole magnesium 40 mg capsule,delayed release 40 mg PO DAILY #90 cap 02/19/20 [Rx Confirmed 09/30/20] pravastatin 80 mg tablet 80 mg PO QHS #90 tab 02/20/20 [Rx Confirmed 09/30/20] hydrochlorothiazide 12.5 mg tablet 12.5 mg PO DAILY #60 tab 05/17/20 [Rx Confirmed 09/30/20] losartan 100 mg tablet 100 mg PO DAILY #90 tab 08/31/20 [Rx Confirmed 09/30/20] [facility] History (Updated 09/30/20 @ 14:14 by Arnie Youssef DISTRICT OPERATIONS MANAGER, DISTRICT OPERATIONS MANAGER-C) Atherosclerosis of coronary artery of [place] heart without angina pectoris (Chronic) Chronic diastolic (congestive) heart failure (Chronic) Secondary pulmonary arterial hypertension (Chronic) TIA (transient ischemic attack) (Chronic) Stenosis of left carotid artery (Chronic) Essential (primary) hypertension (Chronic) Pure hypercholesterolemia (Chronic) Dizziness and giddiness (Resolved) Dyspnea on exertion (Resolved) Edema (Resolved) Pulmonary embolism (Resolved) Shortness of breath (Resolved) Non-rheumatic tricuspid valve insufficiency (Inactive) Nonrheumatic aortic valve insufficiency (Inactive) Surgical History H/O coronary artery bypass surgery (Resolved 06/2001) History of hip replacement (Resolved) History of skin graft (Resolved) 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) Family History Father CAD (coronary artery disease) Mother CAD (coronary artery disease) Brother CAD (coronary artery disease) Social History (Updated 09/30/20 @ 14:15 by Arnie Youssef DISTRICT OPERATIONS MANAGER, DISTRICT OPERATIONS MANAGER-C) Smoking Status: Never smoker alcohol intake: never substance use type: does not use caffeine: Yes Type: coffee Number of servings: 2 ROS Const Const: Negative for fatigue, weakness, body ache, fever(s) or chills ENT ENT: Negative for dizziness Cardio Chest Pain: No Palpitations: No Edema: None Muscle aches with walking: None Resp Respiratory: Positive for SOB with activity and Cough (in the winter when talking); negative for SOB at rest, SOB orthopnea SOB lying down or paroxysmal nocturnal dyspnea GI GI: Negative nausea, vomiting blood/hematemesis, bright, red blood in stools or black,tarry stools : Negative for hematuria or frequent nighttime urination/ nocturia Musc Musc: Negative for muscle aches/ myalgia Skin Skin: Negative non-healing lesions or rash Neuro Neuro: Positive for lightheadedness and near syncope; negative for dizziness, syncope, orthostatic symptoms or weakness Endo Endo: Negative for fatigue Allergy Allergy/Immunology: Negative for rash Cardiology Exam Const Appearance: cooperative, healthy appearing, comfortable and no acute distress Nutritional Appearance: well nourished and overweight Orientation: alert, awake and oriented x3 Head Head: normal to inspection Ears: hearing grossly normal bilaterally Nose: external nose normal Face and Sinus: face symmetric Mouth: oral mucosae normal Eyes General: appearance normal, both eyes and all related structures Eyelids: eyelids normal EOM: EOM intact bilaterally Neck Neck: normal visual inspection and no JVD Carotids: normal carotid upstroke Chest Chest inspection: normal inspection of the chest, symmetric chest movement and normal respiratory effort; negative cough Auscultation: Bilateral: Clear to Auscultation Cardio Rate: regular rate Rhythm: regular rhythm Heart sounds: S1 normal, S2 normal and murmur; negative rub or gallop Murmur: Grade 2/6, soft, early systolic and RLSB GI GI: normal to inspection Neuro General: alert, awake, oriented x3 and CN's II-XI intact bilaterally Skin Skin: no rashes or lesions noted Extremities Pulses: Normal: Right Posterior Tibial Pulse, Left Posterior Tibial Pulse, Right Radial Pulse, Left Radial Pulse Lower Extremity Edema: None: Bilateral Psych Psychological: normal affect Assessment Plan 1. Atherosclerosis of [place] coronary artery of [place] heart without angina pectoris I25.10 Plan Patient denies any chest, arm, jaw, or neck discomfort suggestive of angina. He does acknowledge shortness of breath when carrying firewood. His most recent stress test from October 2018 was negative for ischemia. He was asked undergo echocardiogram to evaluate ejection fraction as well as aortic valve to better explain shortness of breath. Based on results, further recommendation will be made. This can include stress test to rule out coronary artery disease component/anginal equivalent. Orders Orders: Lipid Profile Today Liver Profile Today Echo Complete Today 2. H/O coronary artery bypass surgery Z95.1 CABG x 4 Sequential ARREAGA to LAD and D1, radial graft to OM1, SVG to RCA 06/2001 Plan He will continue current medical therapy which includes aspirin, losartan, and pravastatin. We will not begin beta-blockers at this time on account of ongoing lightheadedness/dizziness. Depending on echocardiogram results this can be reconsidered. Orders Orders: Lipid Profile Today Liver Profile Today Echo Complete Today 3. 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 He was noted to have mild aortic valve insufficiency and aortic valve stenosis with peak aortic valve gradient of 18 mmHg and a mean aortic valve gradient of 9.4 mmHg. His aortic valve area was noted to be 1.6 cm???. Due to his ongoing shortness of breath and lightheadedness, is asked undergo repeat echocardiogram to assess further. Based on results, further recommendation will be made. Orders Orders: Echo Complete Today 4. Dyspnea on exertion R06.00 Plan This has been an ongoing concern. This does not appear to be progressing or worsening. However, the exact etiology is unclear. He was asked undergo an echocardiogram to evaluate LV function. His previous echocardiogram showed ejection fraction of 50%. Other etiology include CAD. This will be readdressed based on echocardiogram results. Orders Orders: Echo Complete Today 5. Essential hypertension I10 Plan This may be contributory shortness of breath. His hydrochlorothiazide has been reduced previously on account of lightheadedness and dizziness associated presyncope. He was asked to monitor his blood pressure routinely and bring this to next office visit to evaluate overall blood pressure and discern any trends/patterns. Orders Orders: Lipid Profile Today Liver Profile Today Echo Complete Today 6. Pure hypercholesterolemia E78.00 Plan He will continue current statin medication. He was asked to repeat this at his earliest convenience in a fasting state. Orders Orders: Lipid Profile Today Liver Profile Today Echo Complete Today Plan Detail Other Orders Orders: Lipid Profile Today G45.9 Liver Profile Today G45.9 Echo Complete Today G45.9 Additional Comments Thank you for allowing us to participate in the patients plan of care, if you have any questions please do not hesitate to call. This note was generated using a voice recognition system and there may be incorrect words, spelling or punctuation that were not noted when reviewing the office note prior to saving. 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 Dyspnea on exertion R06.00 Essential hypertension I10 Pure hypercholesterolemia E78.00 Coding Level of Care Code Off vis,est,level 4 Diagnoses Atherosclerosis of [place] coronary artery of [place] heart without angina pectoris I25.10 ?Coronary Disease-Associated Artery/Lesion type: [place] artery H/O coronary artery bypass surgery Z95.1 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 Moderate (50-69%) stenosis left extracranial internal carotid. Flow within the vertebral arteries is antegrade bilaterally. Echocardiogram from July 2013 showed an estimated ejection fraction of 50%, mild mitral valve insufficiency, mild to moderate aortic valve insufficiency, and an RVSP of 50 mmHg. Echocardiogram in October 2018 demonstrated Normal LV size. The estimated ejection fraction is 50 %. Left ventricular systolic function is lower limits of normal. The left atrium is mildly enlarged. Mild-Moderate (1-2+) eccentric mitral valve insufficiency. Mild to moderate (1-2+) tricuspid valve insufficiency. Mean aortic valve gradient 9.4 mmHg. Compared to previous study, the left ventricular systolic function is the same. Cardiovascular stress test from June 2013 was negative for myocardial induced ischemia and reported a preserved ejection fraction. Pharmacologic nuclear stress test in October 2018 demonstrated: Normal pharmacologic myocardial perfusion stress test. Preserved ejection fraction. Labs LDL Cholesterol 104 mg/dL (0-130) 04/22/18 HDL Cholesterol 30 mg/dL (40-) L 04/22/18 Triglycerides 137 mg/dL (-199) 04/22/18 VLDL Cholesterol 27 mg/dL (5-40) 04/22/18 Diagnostics Echocardiogram 11/11/18 Stress Test Nuclear Medicine 11/11/18 Stress Test 11/11/18 Chest X-Ray 09/04/19 09/30/20 1415 <Electronically signed by Arnie Youssef NP DISTRICT OPERATIONS MANAGER-C> Date [facility] DISTRICT OPERATIONS MANAGER DISTRICT OPERATIONS MANAGER-C Fredisigner Signature: Date (if applicable) CC: Dr. Laura Rodriguez, DO Laura Rodriguez DO Work Phone: Start: 03-16-2020 End: 03-16-2020 Cardiology Visit Report Comments: See Note; NOTES: [facility] [address] [place], [place] [id number] OFFICE VISIT Date of Service: 03/16/20 MR#: [id number] Acct: [id number] Name: REMY BLACKBURN Rep #: [id number] : 1940 Provider: Dr. Benito Diaz MD Age/Sex: 79/M Location: [facility] [place] Status: Signed Intake Vital Signs 03/16/20 BP 133/70 H 03/16/20 Position Standing 03/16/20 Pulse 62 03/16/20 Height 6 ft 03/16/20 Weight: 189 lb 03/16/20 BP 131/79 H 03/16/20 Position Sitting 03/16/20 Respiration 16 03/16/20 Pulse 57 L 03/16/20 Pulse Oximetry (%) 98 Intake Visit Reasons: 8 M FU Allergies No Known Allergies Allergy (Verified 03/16/20 09:45) Medications Aspirin [Aspirin, Baby] 81 mg PO DAILY@0800 04/18/14 [History Confirmed 03/16/20] Nitroglycerin (INPATIENT USE) [Nitrostat] 0.4 mg SUBLINGUAL Q5M PRN 04/18/14 [History Confirmed 03/16/20] oxybutynin chloride 5 mg tablet,extended release 24 hr 5 mg PO QDAY 09/06/17 [History Confirmed 03/16/20] dutasteride 0.5 mg capsule 0.5 mg PO DAILY 04/16/18 [History Confirmed 03/16/20] esomeprazole magnesium 40 mg capsule,delayed release 40 mg PO DAILY #90 cap 07/23/20 [Rx Confirmed 03/16/20] losartan 100 mg tablet 100 mg PO DAILY #90 tab 02/20/20 [Rx Confirmed 03/16/20] pravastatin 80 mg tablet 80 mg PO QHS #90 tab 02/20/20 [Rx Confirmed 03/16/20] hydrochlorothiazide 12.5 mg tablet 12.5 mg PO DAILY #60 tab 03/16/20 [Rx Confirmed 03/16/20] Ejection fraction %: 50 to 54 PFSH Medical History Atherosclerosis of coronary artery of [place] heart without angina pectoris (Chronic) Chronic diastolic (congestive) heart failure (Chronic) Secondary pulmonary arterial hypertension (Chronic) TIA (transient ischemic attack) (Chronic) Stenosis of left carotid artery (Chronic) Essential (primary) hypertension (Chronic) Pure hypercholesterolemia (Chronic) Dizziness and giddiness (Resolved) Dyspnea on exertion (Resolved) Edema (Resolved) Pulmonary embolism (Resolved) Shortness of breath (Resolved) Non-rheumatic tricuspid valve insufficiency (Inactive) Nonrheumatic aortic valve insufficiency (Inactive) Surgical History H/O coronary artery bypass surgery (Resolved 06/2001) History of hip replacement (Resolved) History of skin graft (Resolved) 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 Benito Diaz MD) Smoking Status: Never smoker alcohol intake: never substance use type: does not use caffeine: Yes Type: coffee Number of servings: 2 ROS Const Const: Negative for fatigue, weakness, headache(s), frequent falls, difficulty sleeping or excessive sweating Eyes Eyes: Negative for loss of peripheral vision, transient loss of vision, blurry vision, double vision or tunnel vision ENT ENT: Negative for headache(s), dizziness, Nosebleed/epistaxis or balance problems Cardio Chest Pain: No Palpitations: No Edema: None Muscle aches with walking: None Additional Details: 1 episode of lightheadedness with exertion Resp Respiratory: Positive for SOB with activity (when carrying something or walking fast); negative for SOB at rest, SOB orthopnea SOB lying down, Cough or paroxysmal nocturnal dyspnea GI GI: Negative nausea, vomiting, heartburn or black,tarry stools : Negative for hematuria Musc Musc: Negative for muscle aches/ myalgia, muscle weakness, joint pain or balance problems Skin Skin: Negative non-healing lesions, rash or unusual bruising Neuro Neuro: Positive for lightheadedness, near syncope and orthostatic symptoms; negative for dizziness, syncope, frequent falls, headache(s), weakness, blurry vision, double vision or lack of coordination Emmanuel Hematologic/Lymphatic: Negative for easy bleeding or easy bruising Endo Endo: Negative for fatigue, excessive sweating or increased thirst/drinking Psych Psych: Negative for anxiety or depression Allergy Allergy/Immunology: Negative for hives, Negative for rash Assessment Plan 1. Near syncope R55 Plan He does have a history of near syncope. He is not orthostatic on his blood pressure checks today. He says that this is happened a few times when he has been splitting wood. I would recommend we reduce the dose of his hydrochlorothiazide to 12-1/2 mg once a day. 2. H/O coronary artery bypass surgery Z95.1 CABG x 4 Sequential ARREAGA to LAD and D1, radial graft to OM1, SVG to RCA 06/2001 Plan He is status post four-vessel coronary artery bypass surgery as noted above. He did undergo a stress test in October 2018 with no evidence of ischemia we will continue the same without making any changes. 3. Essential (primary) hypertension I10 Plan His blood pressure appears to be under good control. He has been keeping records of the above at home. There have been times when it has been low. Perhaps this may explain some of his presyncopal episodes. I would recommend reducing the dose of the hydrochlorothiazide to 12-1/2 mg a day 4. Aortic stenosis I35.0 Plan He does have a history of mild aortic stenosis his mean gradient was 9 mmHg and a valve area of 1.6 cm???. My recommendation is for us to continue observing this and repeat an echocardiogram next year. Plan Detail Other Medications Changed: From: hydrochlorothiazide 25 mg PO DAILY 90 tabs 4RF To: hydrochlorothiazide 12.5 mg PO DAILY 60 tabs 4RF Follow Up 6 Months (fortino) Coding Level of Care Code Off vis,est,level 4 Diagnoses Near syncope R55 H/O coronary artery bypass surgery Z95.1 Essential (primary) hypertension I10 Aortic stenosis I35.0 Coding Level of Care Code Off vis,est,level 4 Diagnoses Near syncope R55 H/O coronary artery bypass surgery Z95.1 Essential (primary) hypertension I10 Aortic stenosis I35.0 Supplemental Info Supplemental Information Labs LDL Cholesterol 104 mg/dL (0-130) 04/22/18 HDL Cholesterol 30 mg/dL (40-) L 04/22/18 Triglycerides 137 mg/dL (-199) 04/22/18 VLDL Cholesterol 27 mg/dL (5-40) 04/22/18 Diagnostics Echocardiogram 11/11/18 Stress Test Nuclear Medicine 11/11/18 Stress Test 11/11/18 Chest X-Ray 09/04/19 03/16/20 1048 <Electronically signed by Benito Diaz MD> Date Benito Diaz MD Cosigner Signature: Date (if applicable) CC: DO Laura Roa DO Work Phone: Start: 09-04-2019 End: 09-05-2019 Chest PA and Lateral Comments: See Note; NOTES: [facility] [address] [place] [id number] Chest PA and Lateral MR#: [id number] Acct: [id number] Name: REYM BLACKBURN Rep #: [id number] : 1940 M 79 From: Preston Ray MD PCP: Laura Rodriguez DO Status: REG CLI Study: Chest PA and Lateral Date of Exam: 09/04/19 Exam# [id number] Ordering Dr: Laura Rodriguez DO STUDY: X-RAY CHEST REASON FOR EXAM: Male, 79 years old. Fever and cough TECHNIQUE: PA and lateral views of the chest. COMPARISON: 10/15/2018 FINDINGS: There are interstitial fibrotic changes of the lungs. There is no demonstrated pleural abnormality. Stable granulomas calcification in the right lower lobe Sternal cerclage wires and vascular clips are present from a prior sternotomy and coronary artery bypass graft procedure (CABG). Normal mediastinum and susie. Normal visualized pulmonary arteries. Normal visualized aortic arch and descending thoracic aorta. Normal visualized thoracic spine. Normal visualized ribs, clavicles, and shoulders. There is no demonstrated abnormality of the visualized soft tissue structures of the upper abdomen. RAD/Chest PA and Lateral IMPRESSION: Degenerative changes, as described above. No demonstrated acute cardiopulmonary process. Electronically Signed: Augustus Ray MD at 10:29 EST , Service support , CC: Laura Rodriguez DO Plumber And Tinner: Signed Laura Rodriguez Work Phone: Start: 07-17-2019 End: 07-17-2019 Cardiology Visit Report Comments: See Note; NOTES: [facility]. [address] [place] [address] OFFICE VISIT Date of Service: 07/17/19 MR#: [id number] Acct: [id number] Name: REMY BLACKBURN Rep #: [id number] : 1940 Provider: Benito Diaz MD Age/Sex: 79/M [place] [facility] [place] Status: Signed [facility] History of Present Illness Details: REMY BLACKBURN, is a 78 M who presents to the office today for a cardiovascular followup. He has a history of coronary artery disease with bypass surgery in 2000. He did have a left internal mammary artery to the left anterior descending artery and diagonal as a sequential graft, radial graft to the obtuse marginal branch, and saphenous vein graft to the right coronary artery. He also has a history of hypertension, hyperlipidemia, left carotid stenosis estimated at 50 to 70%. He presents for follow-up visit. He tells me that his blood pressure has been somewhat elevated at home. He has had no dizziness or diaphoresis no near syncope or syncope. That appears to have resolved. It says prior to that it was secondary to his Lasix. His physical exam today demonstrates clear lung fragoso regular rate and rhythm no pedal edema his blood pressure is elevated. Intake Vital Signs07/17/19 Height 6 ft 07/17/19 Weight: 188 lb 07/17/19 BMI 25.4 07/17/19 BP 176/62 H 07/17/19 Respiration 1 L 07/17/19 Pulse 56 L 07/17/19 Pulse Oximetry (%) 97 07/17/19 BMI 25.4 Intake Visit Reasons: 6 M FU Allergies No Known Allergies Allergy (Verified 07/17/19 10:17) Medications Aspirin [Aspirin, Baby] 81 mg PO DAILY@0800 04/18/14 [History Confirmed 07/17/19] Nitroglycerin (INPATIENT USE) [Nitrostat] 0.4 mg SUBLINGUAL Q5M PRN 04/18/14 [History Confirmed 07/17/19] oxybutynin chloride 5 mg tablet,extended release 24 hr 5 mg PO QDAY 09/06/17 [History Confirmed 07/17/19] dutasteride 0.5 mg capsule 0.5 mg PO DAILY 04/16/18 [History Confirmed 07/17/19] esomeprazole magnesium 40 mg capsule,delayed release 40 mg PO DAILY #90 cap 06/16/19 [Rx Confirmed 07/17/19] hydrochlorothiazide 25 mg tablet 25 mg PO DAILY #90 tab 07/17/19 [Rx Confirmed 07/17/19] losartan 100 mg tablet 100 mg PO DAILY #90 tab 07/17/19 [Rx Confirmed 07/17/19] pravastatin 80 mg tablet 80 mg PO QHS #90 tab 07/17/19 [Rx Confirmed 07/17/19] [facility] Medical History Atherosclerosis of coronary artery of [place] heart without angina pectoris (Chronic) Chronic diastolic (congestive) heart failure (Chronic) Pure hypercholesterolemia (Chronic) Secondary pulmonary arterial hypertension (Chronic) Essential (primary) hypertension (Chronic) TIA (transient ischemic attack) (Chronic) Stenosis of left carotid artery (Chronic) Dizziness and giddiness (Resolved) Dyspnea on exertion (Resolved) Edema (Resolved) Pulmonary embolism (Resolved) Shortness of breath (Resolved) Non-rheumatic tricuspid valve insufficiency (Inactive) Nonrheumatic aortic valve insufficiency (Inactive) Surgical History H/O coronary artery bypass surgery (Resolved 06/2001) History of hip replacement (Resolved) History of skin graft (Resolved) 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) Family History Father CAD (coronary artery disease) Mother CAD (coronary artery disease) Brother CAD (coronary artery disease) Social History (Updated 07/17/19 @ 11:07 by Benito Diaz MD) Smoking Status: Never smoker alcohol intake: never substance use type: does not use caffeine: Yes Type: coffee Number of servings: 2 ROS Const Const: Negative for fatigue, weakness, headache(s), frequent falls, difficulty sleeping or excessive sweating Eyes Eyes: Negative for loss of peripheral vision, transient loss of vision, blurry vision, double vision or tunnel vision ENT ENT: Negative for headache(s), dizziness, Nosebleed/epistaxis or balance problems Cardio Chest Pain: No Palpitations: No Edema: None Muscle aches with walking: None Resp Respiratory: Negative for SOB with activity, SOB at rest, SOB orthopnea\SOB lying down, Cough or paroxysmal nocturnal dyspnea GI GI: Negative nausea, vomiting, heartburn or black,tarry stools : Negative for hematuria Musc Musc: Negative for muscle aches/ myalgia, muscle weakness, joint pain or balance problems Skin Skin: Negative non-healing lesions, rash or unusual bruising Neuro Neuro: Negative for dizziness, lightheadedness, near syncope, syncope, orthostatic symptoms, frequent falls, headache(s), weakness, blurry vision, double vision or lack of coordination Emmanuel Hematologic/Lymphatic: Negative for easy bleeding or easy bruising Endo Endo: Negative for fatigue, excessive sweating or increased thirst/drinking Psych Psych: Negative for anxiety or depression Allergy Allergy/Immunology: Negative for hives, Negative for rash Cardiology Exam Const Appearance: cooperative, healthy appearing, no acute distress, well developed and well groomed Nutritional Appearance: average body habitus and well nourished Orientation: alert, awake and oriented x3 Head Head: normal to inspection, normocephalic and atraumatic Ears: hearing grossly normal bilaterally and external ears normal Nose: external nose normal, nares normal, nasal mucous membranes and turbinates normal, septum normal, no nasal discharge Face and Sinus: face symmetric Mouth: oral mucosae normal, tongue normal, oropharynx normal and moist mucous membranes Teeth and gingiva: dentition normal Throat: posterior oropharynx normal, tonsils normal and uvula midline Eyes General: appearance normal, both eyes and all related structures Eyelids: eyelids normal Conjunctivae: conjunctivae normal Pupils: PERRL, normal by confrontation and accommodation normal EOM: EOM intact bilaterally Neck Neck: normal visual inspection, trachea midline and no JVD JVD: +5 Carotids: normal carotid upstroke and bounding pulses Chest Chest inspection: normal inspection of the chest, symmetric chest movement and normal respiratory effort Auscultation: Bilateral: Clear to Auscultation Cardio Palpation: normal PMI Rate: regular rate Rhythm: regular rhythm Heart sounds: S1 normal, S2 normal and normal, physiologic split S2; negative rub, gallop or murmur GI GI: normal to inspection, soft, no hepatosplenomegaly and bowel sounds present Neuro General: alert, awake, oriented x3, gait normal, moves all extremities and no focal sensory deficit Skin Skin: no rashes or lesions noted Extremities Pulses: Normal: Right Femoral Pulse, Left Femoral Pulse, Right Dorsalis Pedis Pulse, Left Dorsalis Pedis Pulse, Right Posterior Tibial Pulse, Left Posterior Tibial Pulse, Right Radial Pulse, Left Radial Pulse Lower Extremity Edema: None: Bilateral Musculoskel Musculoskeletal: No joint tenderness Psych Psychological: normal affect Assessment AND Plan 1. Essential (primary) hypertension I10 Plan He does have a history of hypertension which is not very well controlled I would recommend that we increase his losartan to 100 mg a day, add hydrochlorothiazide 25 mg a day to his regimen, and discontinue the spironolactone. His estimated GFR in November was 125. 2. H/O coronary artery bypass surgery Z95.1 CABG x 4 Sequential ARREAGA to LAD and D1, radial graft to OM1, SVG to RCA 06/2001 Plan He is status post coronary artery bypass surgery he has not had any anginal episodes my recommendation is for continue the same. His nuclear stress test in October 2018 demonstrated no evidence of ischemia. 3. Chronic diastolic (congestive) heart failure I50.32 Plan He does have evidence of chronic diastolic heart failure his last echocardiogram in October 2018 demonstrated ejection fraction of 50% moderate 1-2+ eccentric mitral regurgitation, moderate 2+ tricuspid regurgitation with pulmonary systolic pressure of 50 mmHg. The hydrochlorothiazide will be instituted for the above. 4. Stenosis of left carotid artery I65.22 Plan He does have moderate left extracranial internal carotid artery stenosis and mild right extracranial internal carotid artery stenosis. 5. Aortic valve disease I35.9 Plan He does have mild aortic valve disease with a valve area of 1.6 cm and a mean gradient of 9 mmHg. We will continue to observe the above. No other changes will be made. Thank you for allowing me to participate in the care of your patient. 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) Coding Level of Care Code Off vis,est,level 4 Diagnoses Essential (primary) hypertension I10 H/O coronary artery bypass surgery Z95.1 Chronic diastolic (congestive) heart failure I50.32 Stenosis of left carotid artery I65.22 Aortic valve disease I35.9 Coding Level of Care Code Off vis,est,level 4 Diagnoses Essential (primary) hypertension I10 H/O coronary artery bypass surgery Z95.1 Chronic diastolic (congestive) heart failure I50.32 Stenosis of left carotid artery I65.22 Aortic valve disease I35.9 Supplemental Info Supplemental Information Labs LDL Cholesterol 104 mg/dL (0-130) 04/22/18 HDL Cholesterol 30 mg/dL (40-) L 04/22/18 Triglycerides 137 mg/dL (-199) 04/22/18 VLDL Cholesterol 27 mg/dL (5-40) 04/22/18 Diagnostics Echocardiogram 11/11/18 Stress Test Nuclear Medicine 11/11/18 Stress Test 11/11/18 Chest X-Ray 10/15/18 07/17/19 1107 <Electronically signed by Benito Diaz MD> Date Benito Diaz MD Cosigner Signature: Date (if applicable) CC: Laura Rodriguez DO Laura Rodriguez DO Work Phone: Start: 12-02-2018 End: 12-02-2018 Cardiology Visit Report Comments: See Note; NOTES: [facility] [address] [place] [address] OFFICE VISIT Date of Service: 11/21/18 MR#: [id number] Acct: [id number] Name: REMY BLACKBURN Rep #: [id number] : 1940 Provider: Lakshmi Raman Age/Sex: 78/M Location: [facility] [place] Status: Signed HPI HPI Details: REMY BLACKBURN, is a 78 M who presents to the office today for a cardiovascular followup. He has a history of coronary artery disease with bypass surgery in 2000. He had an ARREAGA to the LAD, radial graft to 2 marginal branches, SVG to the RCA. He also has a history of hypertension and hyperlipidemia. He was in our office last month with concerns of shortness of breath. Stress test was negative for ischemia. Echocardiogram demonstrated an ejection fraction of 50% with mild to moderate mitral and tricuspid insufficiency. Blood pressure medications were adjusted. From a cardiac standpoint, patient is doing well. He does not have any chest discomfort/heaviness/tightne ss. He does not have any worsening symptoms of shortness of breath. He denies any PND. He does not have any orthopnea. He does not have any symptoms of congestive heart failure. He does not have any palpitations that he is aware of. He does not have any lightheadedness or dizziness. He does not have any near-syncope or syncope. He does not have any lower extremity edema. He does not have any symptoms of claudication. 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 Accompanied by: None Is patient in pain?: No Allergies No Known Allergies Allergy (Verified 11/21/18 10:04) Medications Aspirin [Aspirin, Baby] 81 mg PO DAILY@0800 04/18/14 [History Confirmed 11/21/18] Nitroglycerin [Nitrostat] 0.4 mg SUBLINGUAL Q5M PRN 04/18/14 [History Confirmed 11/21/18] Pravastatin [Pravachol] 80 mg PO QHS 04/18/14 [History Confirmed 11/21/18] alfuzosin ER 10 mg tablet,extended release 24 hr 10 mg PO QDAY 09/06/17 [History Confirmed 10/15/18] oxybutynin chloride ER 5 mg tablet,extended release 24 hr 5 mg PO QDAY 09/06/17 [History Confirmed 11/21/18] dutasteride 0.5 mg capsule 0.5 mg PO DAILY 04/16/18 [History Confirmed 11/21/18] esomeprazole magnesium 40 mg capsule,delayed release 40 mg PO DAILY #90 cap 04/16/18 [Rx Confirmed 11/21/18] furosemide 40 mg tablet 40 mg PO DAILY tab 10/15/18 [History Confirmed 11/21/18] losartan 50 mg tablet 50 mg PO DAILY #90 tab 10/15/18 [Rx Confirmed 11/21/18] spironolactone 25 mg tablet 25 mg PO DAILY #30 tab 11/21/18 [Rx Confirmed 11/21/18] Ejection fraction %: 50 to 54 PFSH Medical History Pure hypercholesterolemia (Chronic) Dyspnea on exertion (Acute) Secondary pulmonary arterial hypertension (Chronic) Nonrheumatic aortic valve insufficiency (Chronic) Non-rheumatic tricuspid valve insufficiency (Chronic) Dizziness and giddiness (Acute) Edema (Acute) Essential (primary) hypertension (Chronic) Atherosclerosis of coronary artery of [place] heart without angina pectoris (Chronic) Shortness of breath (Acute) TIA (transient ischemic attack) (Chronic) Bilateral carotid artery stenosis (Chronic) Pulmonary embolism (Resolved) Surgical History H/O coronary artery bypass surgery (Resolved 06/2001) History of hip replacement (Resolved) History of skin graft (Resolved) 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) Family History Father CAD (coronary artery disease) Mother CAD (coronary artery disease) Brother CAD (coronary artery disease) Social History Smoking Status: Never smoker alcohol intake: never substance use type: does not use caffeine: Yes Type: coffee Number of servings: 2 ROS Const Const: Negative for fatigue, weakness, fever(s) or headache(s) Eyes Eyes: Negative for blind spots, loss of peripheral vision or transient loss of vision ENT ENT: Negative for headache(s), dizziness, tinnitus or Nosebleed/epistaxis Cardio Chest Pain: No Palpitations: No Edema: None Muscle aches with walking: None Resp Respiratory: Negative for SOB with activity, SOB at rest, SOB orthopnea\SOB lying down or Cough GI GI: Negative nausea, vomiting, heartburn or vomiting blood/hematemesis : Negative for hematuria Musc Musc: Negative for muscle aches/ myalgia Neuro Neuro: Negative for dizziness, lightheadedness, near syncope, syncope, orthostatic symptoms, headache(s) or weakness Emmanuel Hematologic/Lymphatic: Negative for easy bleeding Endo Endo: Negative for fatigue Cardiology Exam Const Appearance: cooperative, healthy appearing, comfortable and no acute distress Nutritional Appearance: well nourished and overweight Orientation: alert, awake and oriented x3 Head Head: normal to inspection Ears: hearing grossly normal bilaterally Nose: external nose normal Face and Sinus: face symmetric Mouth: oral mucosae normal Eyes General: appearance normal, both eyes and all related structures Eyelids: eyelids normal Conjunctivae: conjunctivae normal Pupils: PERRL EOM: EOM intact bilaterally Neck Neck: normal visual inspection and no JVD Carotids: normal carotid upstroke Chest Chest inspection: normal inspection of the chest, symmetric chest movement and normal respiratory effort; negative cough Auscultation: Bilateral: Clear to Auscultation Cardio Rate: regular rate Rhythm: regular rhythm Heart sounds: S1 normal, S2 normal and normal, physiologic split S2; negative rub, gallop or murmur GI GI: normal to inspection and distended Neuro General: alert, awake, oriented x3 and CN's II-XI intact bilaterally Skin Skin: no rashes or lesions noted Extremities Pulses: Normal: Right Posterior Tibial Pulse, Left Posterior Tibial Pulse, Right Radial Pulse, Left Radial Pulse Lower Extremity Edema: +2: Bilateral Psych Psychological: normal affect Assessment AND Plan 1. Atherosclerosis of [place] coronary artery of [place] heart without angina pectoris I25.10 CABG in 2000 with ARREAGA to LAD, radial graft to obtuse marginal branch, and SVG to RCA; Plan - CONNOR Starks Stable, from a cardiac standpoint patient does not have any symptoms of angina. We recommend that they continue with current aggressive medical management and risk factor modification. Reviewed recent stress test with patient which was negative for ischemia. 2. Essential hypertension I10 Plan - CONNOR Starks Bp is still elevated, will have him start spirolactone 25 mg daily, monitor his BP readings, call us in 2 weeks with an update and obtain a BMP at that time. Patient Instructions - CONNOR Starks Start spironolactone at 25 mg daily, get your blood work in 2 weeks, call with an update on your BP readings at that time 3. Pure hypercholesterolemia E78.00 Plan - CONNOR Starks Lipid profile from March 2018 demonstrated total cholesterol 161, HDL 30, LDL 104. Patient will continue with current high intensity statin. Plan Detail Other Orders Orders: Other Medications New: Additional Comments - CONNOR Starks Thank you for allowing us to participate in patient's plan of care, if you have any questions please do not hesitate to call. This note was generated using a voice recognition system and there may be incorrect words, spelling or punctuation errors that were not noted when reviewing the office note prior to saving. 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) Coding Level of Care Code Off vis,est,level 3 Diagnoses Atherosclerosis of [place] coronary artery of [place] heart without angina pectoris I25.10 Coronary Disease-Associated Artery/Lesion type: [place] artery Essential hypertension I10 Pure hypercholesterolemia E78.00 Coding Level of Care Code Off vis,est,level 3 Diagnoses Atherosclerosis of [place] coronary artery of [place] heart without angina pectoris I25.10 Coronary Disease-Associated Artery/Lesion type: [place] artery Essential hypertension I10 Pure hypercholesterolemia E78.00 Supplemental Info Supplemental Information Carotid duplex ultrasound from May 2016 showed moderate stenosis of left and right extracranial internal carotid carotids Carotid duplex ultrasound from October of [address]59 demonstrated; Mild (<50%) stenosis right extracranial internal carotid. Moderate (50-69%) stenosis left extracranial internal carotid. Flow within the vertebral arteries is antegrade bilaterally. Echocardiogram from July 2013 showed an estimated ejection fraction of 50%, mild mitral valve insufficiency, mild to moderate aortic valve insufficiency, and an RVSP of 50 mmHg. Echocardiogram in October 2018 demonstrated Normal LV size. The estimated ejection fraction is 50 %. Left ventricular systolic function is lower limits of normal. The left atrium is mildly enlarged. Mild-Moderate (1-2+) eccentric mitral valve insufficiency. Mild to moderate (1-2+) tricuspid valve insufficiency. Mean aortic valve gradient 9.4 mmHg. Compared to previous study, the left ventricular systolic function is the same. Cardiovascular stress test from June 2013 was negative for myocardial induced ischemia and reported a preserved ejection fraction. Pharmacologic nuclear stress test in October 2018 demonstrated: Normal pharmacologic myocardial perfusion stress test. Preserved ejection fraction. Labs LDL Cholesterol 104 mg/dL (0-130) 04/22/18 HDL Cholesterol 30 mg/dL (40-) L 04/22/18 Triglycerides 137 mg/dL (-199) 04/22/18 VLDL Cholesterol 27 mg/dL (5-40) 04/22/18 Diagnostics Echocardiogram 11/11/18 Stress Test Nuclear Medicine 11/11/18 Stress Test 11/11/18 Chest X-Ray 10/15/18 11/27/18 0933 <Electronically signed by Lakshmi RYAN> Date Lakshmi RYAN 12/02/18 1834<Electronically signed by Benito Diaz MD> Cosigner Signature: Date (if applicable) Benito Diaz MD CC: Laura Hinojosa Start: 11-20-2018 End: 11-20-2018 Carotid Duplex Ultrasound Comments: See Note; NOTES: [facility] [address] [place] [address] Carotid Duplex Ultrasound 11/11/18 0958 MR#: [id number] Acct: [id number] Name: REMY BLACKBURN Rep #: [id number] : 1940 78 From: Stevo Holman MD Attending Dr: Lakshmi Raman Status: REG I Ordering Dr: Lakshmi Raman Date: 11/11/18 Location: [facility] Sex: M C Admitted: Reason For Study: BRUIT Rt. Velocities/BP Lt. Velocities/BP Prox CCA 85/8 cm/sec. Prox CCA 147/0 cm/sec. Mid CCA 83/8 cm/sec. Mid CCA 83/15 cm/sec. Dist CCA 64/12 cm/sec. Dist CCA 72/15 cm/sec. Prox ICA 67/14 cm/sec. Prox ICA 121/23 cm/sec. Mid ICA 115/22 cm/sec. Mid ICA 78/16 cm/sec. Dist ICA 140/15 cm/sec. Dist ICA 86/18 cm/sec. Rt. ICA/CCA = 1.6. Lt. ICA/CCA = .8. Prox ECA 126/0 cm/sec. Prox ECA 169/33 cm/sec. Rt. Vert. 77/15 cm/sec. Lt. Vert. 98/18 cm/sec. Right Extracranial There is intimal thickening but no significant atherosclerotic plaque noted in the right common carotid artery. There is heterogeneous, irregular atherosclerotic plaque noted in the right internal carotid artery. There is heterogeneous, smooth atherosclerotic plaque noted in the right external carotid artery. Antegrade flow is noted in the right vertebral artery. There is heterogeneous, smooth atherosclerotic plaque noted in the right bulb. Left Extracranial There is homogeneous, smooth atherosclerotic plaque noted in the left common carotid artery. There is heterogeneous, irregular atherosclerotic plaque noted in the left internal carotid artery. There is heterogeneous, irregular atherosclerotic plaque noted in the left external carotid artery. The Doppler flow velocities are elevated in the left vertebral artery, suggesting stenosis. Antegrade flow is noted in the left vertebral artery. There is heterogeneous, irregular atherosclerotic plaque noted in the left bulb. Procedure Carotid Duplex 91319. Exam performed in department. Interpretation Summary Mild (<50%) stenosis right extracranial internal carotid. Moderate (50-69%) stenosis left extracranial internal carotid. Flow within the vertebral arteries is antegrade bilaterally. Ordering Physician: Lakshmi Raman Referring Physician: LAURA RODRIGUEZ Performed By: Roma Barbosa RDCS, RVT 11/20/18 1121 Date Stevo Holman MD CC: Laura Rodriguez DO; Lakshmi Raman Date Dictated: 11/11/18 0958 Date Transcribed: 11/20/18 112 [employer] Tinner: Signed Laura Rodriguez Start: 11-11-2018 End: 11-11-2018 Echo, Complete w/ Contrast Comments: See Note; NOTES: [facility] [address] [place] [address] Echo Complete W/ Contrast 11/11/18 1039 MR#: [id number] Acct: [id number] Name: REMY BLACKBURN Rep #: [id number] : 1940 78 From: Benito Diaz MD Attending Dr: Lakshmi Raman Status: REG [facility] Ordering Dr: Lakshmi Raman Date: 11/11/18 Location: [facility] Sex: M C Admitted: Reason For Study: Dyspnea/SOB Procedure This was a 2D Doppler, Color Flow transthoracic echocardiogram. Exam performed in department. Left Ventricle Normal LV size. The estimated ejection fraction is 50 %. Left ventricular systolic function is lower limits of normal. No regional wall motion abnormalities noted. Right Ventricle Normal RV size. Normal systolic function. Atria The left atrium is mildly enlarged. Normal right atrium. Mitral Valve Normal mitral valve. Mild-Moderate (1-2+) eccentric mitral valve insufficiency. Tricuspid Valve Normal tricuspid valve. Mild to moderate (1-2+) tricuspid valve insufficiency. Pulmonary artery systolic pressure is 50 mmHg. Aortic Valve Trisinus/trileaflet aortic valve. Mild focal aortic valve calcification. Peak aortic valve gradient 18 mmHg. Mean aortic valve gradient 9.4 mmHg. Mild (1+) eccentric aortic valve insufficiency. Pulmonic Valve Normal pulmonic valve. Great Vessels Normal aortic root. The pulmonary artery is normal size. Normal inferior vena cava. Pericardium/Pleural No pericardial effusion. Medication 22 gauge I.V. with prn adaptor inserted into right arm. Diluted definity 2ml given slow IV push to enhance endocardial definition. MMode/2D Measurements AND Calculations LVIDd: 5.2 cm IVSd: 0.93 cm LVOT diam: 2.0 cm LVIDs: 3.8 cm LVPWd: 0.99 cm FS: 26.8 % LVOT area: 3.2 cm2 Ao root diam: 3.1 cm LAV(MOD-bp): 68.8 ml LVAd ap4: 40.7 cm2 LA dimension: 4.7 cm LAV(MOD-bp) Indexed: 33.0 ml/m2 EDV(MOD-sp4): 152.0 ml LAV(MOD-sp2): 66.8 ml EDV(sp4-el): 161.5 ml LAV(MOD-sp4): 70.3 ml LVAs ap4: 22.6 cm2 ESV(MOD-sp4): 59.1 ml ESV(sp4-el): 61.7 ml EF(MOD-sp4): 61.1 % EF(sp4-el): 61.8 % SV(MOD-sp4): 92.8 ml SV(sp4-el): 99.8 ml LA A4 area: 23.9 cm2 RA A4 area: 18.6 cm2 Time Measurements MV dec time: 0.17 sec Doppler Measurements AND Calculations MV E max memo: 81.5 cm/sec Med Peak E' Memo: 5.8 cm/sec MV V2 max: 84.4 cm/sec MV A max memo: 43.0 cm/sec E/E' med: 14.0 MV max P.9 mmHg MV E/A: 1.9 MV V2 mean: 51.3 cm/sec MV mean P.2 mmHg MV V2 VTI: 25.3 cm MVA(VTI): 3.5 cm2 MV P1/2t max memo: 84.4 cm/sec Ao V2 max: 216.7 cm/sec AI max memo: 394.5 cm/sec MV P1/2t: 85.4 msec Ao max P.8 mmHg AI max P.3 mmHg MV dec slope: 289.6 cm/sec2 Ao V2 mean: 139.4 cm/sec AI dec slope: 254.8 cm/sec2 Ao mean P.4 mmHg AI P1/2t: 453.6 msec MVA(P1/2t): 2.6 cm2 Ao V2 VTI: 56.1 cm ERIN(I,D): 1.6 cm2 ERIN(V,D): 1.7 cm2 LV V1 max: 116.2 cm/sec MR max memo: 597.5 cm/sec SV(LVOT): 88.4 ml LV V1 max P.4 mmHg MR max P.8 mmHg LV V1 mean P.4 mmHg LV V1 mean: 69.2 cm/sec LV V1 VTI: 27.4 cm PA V2 max: 60.8 cm/sec PI end-d memo: 124.2 cm/sec TR max memo: 335.1 cm/sec TR max P.9 mmHg Interpretation Summary Normal LV size. The estimated ejection fraction is 50 %. Left ventricular systolic function is lower limits of normal. The left atrium is mildly enlarged. Mild-Moderate (1-2+) eccentric mitral valve insufficiency. Mild to moderate (1-2+) tricuspid valve insufficiency. Mean aortic valve gradient 9.4 mmHg. Compared to previous study, the left ventricular systolic function is the same.. Ordering Physician: Lakshmi Raman Referring Physician: Laura Rodriguez Performed By: Jorge L Garcia RCS 11/11/18 1521 Date Benito Diaz MD CC: Laura Rodriguez DO; Lakshmi Raman Date Dictated: 11/11/18 1039 Date Transcribed: 11/11/18 1521 [employer]inner: Signed Laura Rodriguez Start: 11-11-2018 End: 11-11-2018 Stress Report Comments: See Note; NOTES: [facility] Cardi[facility] Services [address] [place] [address] MR#: [id number] Acct: [id number] Name: REMY BLACKBURN Rep #: [id number] : 1940 78 From: Benito Diaz MD Primary Care: Laura Rodriguez DO Status: REG CLI Ordering Dr: Sex: Regi Herrera Stress Test Report Pharmacologic myocardial perfusion stress test. 78-year-old man with a history of chest pain and coronary artery disease. Stress protocol: Resting EKG demonstrates sinus bradycardia with a rate of 49 bpm normal intervals are noted resting blood pressure 170/80 mmHg. 0.4 mg of regadenoson was infused per usual protocol followed by rapid intravenous saline flush injection continuous EKG monitoring was performed. Patient maintained sinus rhythm throughout the recording. At rest there were nonspecific ST-T wave changes noted at peak infusion nonspecific ST-T wave changes were noted. The resting blood pressure 170/80 mmHg with a final blood pressure 140/82 mmHg. Myocardial perfusion protocol. 14.1 mCi of technetium 99m sestamibi was injected at rest. 0.4 mg of regadenoson was infused per usual protocol. At peak infusion 43.6 mCi of technetium 99m sestamibi was injected stress images were obtained stress and rest images were reconstructed and compared in the short axis vertical long horizontal long axis. Gated images were also obtained per Perfusion SPECT analysis: Review of the stress images demonstrate normal uptake of tracer noted in all areas of the myocardium. The resting images similarly demonstrate normal uptake of tracer noted in all areas of the myocardium. No areas of reversibility are noted suggest ischemia no previous infarct is noted. Gated SPECT analysis: The gated ejection fraction is noted to be 64%. Conclusion: Normal pharmacologic myocardial perfusion stress test. Preserved ejection fraction. 11/11/18 0838 <Electronically signed by Benito Diaz MD> Date Benito Diaz MD CC: Laura Rodriguez DO; Lakshmi Raman Date Dictated: 11/11/18835 Date Transcribed: 11/11/18835 [employer]umber [employer] Tinner: [place] Signed Laura Rodriguez Start: 10-19-2018 End: 10-19-2018 Cardiology Visit Report Comments: See Note; NOTES: [facility] [address] [place] [address] OFFICE VISIT Date of Service: 10/15/18 MR#: [id number] Acct: [id number] Name: REMY BLACKBURN Rep #: [id number] : 1940 Provider: Lakshmi Raman Age/Sex: 78/M Location: [facility] [place] Status: Signed HPI HPI Chief Complaint: Shortness of breath Details: REMY BLACKBURN, is a 78 M who presents to the office today for a cardiovascular followup. He has a history of coronary artery disease with bypass surgery in 2000. He had an ARREAGA to the LAD, radial graft to 2 marginal branches, SVG to the RCA. He also has a history of hypertension and hyperlipidemia. Pt notes that he is still having SOB with activity. He sts that with activity he feels that his lungs are getting crowded. He notes that his BP has been higher. He notes that he does not have any chest pain/heaviness. He does not have any orthopnea. He does have positional dizziness. He does have edema. He does not have any palpitations. 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 Accompanied by: Is patient in pain?: No Allergies No Known Allergies Allergy (Verified 10/15/18 10:11) Medications Aspirin [Aspirin, Baby] 81 mg PO DAILY@0800 04/18/14 [History Confirmed 10/15/18] Nitroglycerin [Nitrostat] 0.4 mg SUBLINGUAL Q5M PRN 04/18/14 [History Confirmed 10/15/18] Pravastatin [Pravachol] 80 mg PO QHS 04/18/14 [History Confirmed 10/15/18] alfuzosin ER 10 mg tablet,extended release 24 hr 10 mg PO QDAY 09/06/17 [History Confirmed 10/15/18] oxybutynin chloride ER 5 mg tablet,extended release 24 hr 5 mg PO QDAY 09/06/17 [History Confirmed 10/15/18] dutasteride 0.5 mg capsule 0.5 mg PO DAILY 04/16/18 [History Confirmed 10/15/18] esomeprazole magnesium 40 mg capsule,delayed release 40 mg PO DAILY #90 cap 04/16/18 [Rx Confirmed 10/15/18] furosemide 40 mg tablet 40 mg PO DAILY tab 10/15/18 [History Confirmed 10/15/18] losartan 50 mg tablet 50 mg PO DAILY #90 tab 10/15/18 [Rx Confirmed 10/15/18] Ejection fraction %: 50 to 54 PFSH Medical History Pure hypercholesterolemia (Chronic) Dyspnea on exertion (Acute) Secondary pulmonary arterial hypertension (Chronic) Nonrheumatic aortic valve insufficiency (Chronic) Non-rheumatic tricuspid valve insufficiency (Chronic) Dizziness and giddiness (Acute) Edema (Acute) Essential (primary) hypertension (Chronic) Atherosclerosis of coronary artery of [place] heart without angina pectoris (Chronic) Shortness of breath (Acute) TIA (transient ischemic attack) (Chronic) Bilateral carotid artery stenosis (Chronic) Pulmonary embolism (Resolved) Surgical History H/O coronary artery bypass surgery (Resolved 06/2001) History of hip replacement (Resolved) 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) Family History Father CAD (coronary artery disease) Mother CAD (coronary artery disease) Brother CAD (coronary artery disease) Social History Smoking Status: Never smoker alcohol intake: never caffeine: Yes Type: coffee Number of servings: 2 ROS Const Const: Negative for fatigue, weakness, fever(s) or headache(s) Eyes Eyes: Negative for blind spots, loss of peripheral vision or transient loss of vision ENT ENT: Negative for headache(s), dizziness, tinnitus or Nosebleed/epistaxis Cardio Chest Pain: No Palpitations: No Edema: None Muscle aches with walking: None Resp Respiratory: Positive for SOB with activity; negative for SOB at rest, SOB orthopnea\SOB lying down or Cough GI GI: Negative nausea, vomiting, heartburn or vomiting blood/hematemesis : Negative for hematuria Musc Musc: Negative for muscle aches/ myalgia Neuro Neuro: Negative for dizziness, lightheadedness, near syncope, syncope, orthostatic symptoms, headache(s) or weakness Emmanuel Hematologic/Lymphatic: Negative for easy bleeding Endo Endo: Negative for fatigue Cardiology Exam Const Appearance: cooperative, healthy appearing, comfortable and no acute distress Nutritional Appearance: well nourished and overweight Orientation: alert, awake and oriented x3 Head Head: normal to inspection Ears: hearing grossly normal bilaterally Nose: external nose normal Face and Sinus: face symmetric Mouth: oral mucosae normal Eyes General: appearance normal, both eyes and all related structures Eyelids: eyelids normal Conjunctivae: conjunctivae normal Pupils: PERRL EOM: EOM intact bilaterally Neck Neck: normal visual inspection and no JVD Carotids: normal carotid upstroke Chest Chest inspection: normal inspection of the chest, symmetric chest movement and normal respiratory effort; negative cough Auscultation: Bilateral: Clear to Auscultation Cardio Rate: regular rate Rhythm: regular rhythm Heart sounds: S1 normal, S2 normal and normal, physiologic split S2; negative rub, gallop or murmur GI GI: normal to inspection and distended Neuro General: alert, awake, oriented x3 and CN's II-XI intact bilaterally Skin Skin: no rashes or lesions noted Extremities Pulses: Normal: Right Posterior Tibial Pulse, Left Posterior Tibial Pulse, Right Radial Pulse, Left Radial Pulse Lower Extremity Edema: +2: Bilateral Psych Psychological: normal affect Assessment AND Plan 1. Dyspnea on exertion R06.09 Plan - CONNOR Starks Shortness of breath could be multifactorial. Will obtain chest x-ray and labs. We will also obtain a stress test to evaluate for underlying ischemia as this could be an anginal equivalent. We will also obtain an echocardiogram to reevaluate LV function as he did have an elevated BNP in the past. Shortness of breath could also be related to elevated blood pressure. We are increasing his medication for this. Orders Orders: 2. Arteriosclerotic heart disease (ASHD) I25.10 Gerardo - CONNOR Starks As mentioned above with patient's shortness of breath with exertion will obtain an echocardiogram and stress test. He will continue with his current medical management at this point. We will follow-up after testing is complete. Orders Orders: 3. Essential hypertension I10 Plan - CONNOR Starks Blood pressure is elevated today. We will increase his losartan to 50 mg daily. He will follow up accordingly after. Patient Instructions - CONNOR Starks increase your losartan to 50 mg daily I will call you with your labs I will obtain a stress and echo Orders Orders: 4. Bilateral carotid artery stenosis I65.23 Plan - CONNOR Starks Patient does have moderate carotid artery stenosis. Would like to repeat a carotid ultrasound to evaluate stability. Orders Orders: 5. Pure hypercholesterolemia E78.00 Plan - CONNOR Starks Lipid profile from March 2018 demonstrated total cholesterol 161, HDL 30, LDL 104. Patient will continue with current high intensity statin. Orders Orders: Plan Detail Other Orders Orders: Other Medications Changed: Additional Comments - CONNOR Starks The above patient was discussed with Dr. Diaz, he agrees with plan of care. Thank you for allowing us to participate in patient's plan of care, if you have any questions please do not hesitate to call. This note was generated using a voice recognition system and there may be incorrect words, spelling or punctuation errors that were not noted when reviewing the office note prior to saving. Follow Up 1 Month (MMM) Coding Level of Care Code Off vis,est,level 4 Diagnoses Dyspnea on exertion R06.09 Arteriosclerotic heart disease (ASHD) I25.10 Essential hypertension I10 Bilateral carotid artery stenosis I65.23 Pure hypercholesterolemia E78.00 Coding Level of Care Code Off vis,est,level 4 Diagnoses Dyspnea on exertion R06.09 Arteriosclerotic heart disease (ASHD) I25.10 Essential hypertension I10 Bilateral carotid artery stenosis I65.23 Pure hypercholesterolemia E78.00 Supplemental Info Supplemental Information Carotid duplex ultrasound from May 2016 showed moderate stenosis of left and right extracranial internal carotid carotids Echocardiogram from July 2013 showed an estimated ejection fraction of 50%, mild mitral valve insufficiency, mild to moderate aortic valve insufficiency, and an RVSP of 50 mmHg. Cardiovascular stress test from June 2013 was negative for myocardial induced ischemia and reported a preserved ejection fraction. Labs LDL Cholesterol 104 mg/dL (0-130) 04/22/18 HDL Cholesterol 30 mg/dL (40-) L 04/22/18 Triglycerides 137 mg/dL (-199) 04/22/18 VLDL Cholesterol 27 mg/dL (5-40) 04/22/18 Diagnostics Chest X-Ray 10/15/18 10/16/18 1627 <Electronically signed by Lakshmi Raman PA> Date Lakshmi RYAN 10/19/18 0815<Electronically signed by Benito Diaz MD> Cosigner Signature: Date (if applicable) Benito Diaz MD CC: Laura Hinojosa Start: 10-15-2018 End: 10-16-2018 Chest PA and Lateral Comments: See Note; NOTES: [facility] Imaging Services [address] [place] [address] Chest PA and Lateral MR#: [id number] Acct: [id number] Name: REMY BLACKBURN Rep #: [id number] : 1940 M 78 From: Sam Rea DO PCP: Laura Rodriguez DO Status: REG CLI Study: Chest PA and Lateral Date of Exam: 10/15/18 Exam# [id number] Ordering Dr: Lakshmi Raman STUDY: X-RAY CHEST REASON FOR EXAM: Male, 78 years old. Shortness of breath TECHNIQUE: PA and lateral views of the chest. COMPARISON: 08/18/2014 FINDINGS: Stable calcified right midlung granuloma The lungs are clear and expanded. There is no demonstrated pleural abnormality. Sternal cerclage wires and vascular clips are present from a prior sternotomy and coronary artery bypass graft procedure (CABG). Mild cardiomegaly. Normal mediastinum and susie. Normal visualized pulmonary arteries. Normal visualized aortic arch and descending thoracic aorta. Normal visualized thoracic spine. Normal visualized ribs, clavicles, and shoulders. There is no demonstrated abnormality of the visualized soft tissue structures of the upper abdomen. RAD/Chest PA and Lateral IMPRESSION: No acute cardiopulmonary disease Electronically Signed: Sam Rea DO at 11:38 EDT Tel , Service support , CC: Laura Rodriguez DO; Lakshmi Raman [employer] Tinner: Signed Laura Rodriguez Start: 10-10-2018 End: 10-10-2018 Cardiology Visit Report Comments: See Note; NOTES: [facility] [address] [place] [address]. [address] [place] [address] OFFICE VISIT Date of Service: 05/07/18 MR#: [id number] Acct: [id number] Name: REMY BLACKBURN Rep #: [id number] : 1940 Provider: VANESSA Youssef Age/Sex: 77/M Location: [facility] [place] Status: Signed [facility] HPI Chief Complaint: Shortness of breath Details: REMY BLACKBURN, is a 77 M who presents to the office today for a cardiovascular outpatient follow-up. Patient has a history of coronary artery disease status post bypass surgery in 2000 with a ARREAGA to the LAD, radial graft to obtuse marginal branch, and SVG to RCA. He also has history of hypertension, hyperlipidemia, and carotid artery disease. He states gradual worsening SOB over the three weeks since stopping chlorthalidone. He also noticed a gradual increase in lower extremity edema. His SOB is worse with exertion. He states worsening orthopnea. He continues to have dizziness with position changes that can be associated with pre-syncope if he does not rest. He denies any syncopal episodes. He states his activity is less over the last few weeks d/t fatigue and shortness of breath. Intake Vital Signs05/07/18 Height 6 ft 05/07/18 Weight: 201 lb 05/07/18 Body Mass Index (BMI) 27.2 05/07/18 Blood Pressure 162/60 H 05/07/18 Respiratory Rate 18 05/07/18 Pulse Rate 64 Intake Visit Reasons: edema SOB Allergies No Known Allergies Allergy (Verified 05/07/18 09:22) Medications Aspirin [Aspirin, Baby] 81 mg PO DAILY@0800 04/18/14 [History Confirmed 04/16/18] Nitroglycerin [Nitrostat] 0.4 mg SUBLINGUAL Q5M PRN 04/18/14 [History Confirmed 04/16/18] Pravastatin [Pravachol] 80 mg PO QHS 04/18/14 [History Confirmed 04/16/18] losartan 25 mg tablet 25 mg PO DAILY #90 tab 08/06/17 [Rx Confirmed 04/16/18] alfuzosin ER 10 mg tablet,extended release 24 hr 10 mg PO QDAY 09/06/17 [History Confirmed 04/16/18] oxybutynin chloride ER 5 mg tablet,extended release 24 hr 5 mg PO QDAY 09/06/17 [History Confirmed 04/16/18] dutasteride 0.5 mg capsule 0.5 mg PO DAILY 04/16/18 [History Confirmed 04/16/18] esomeprazole magnesium 40 mg capsule,delayed release 40 mg PO DAILY #90 cap 04/16/18 [Rx Confirmed 04/16/18] furosemide 40 mg tablet 40 mg PO DAILY PRN #30 tab 05/07/18 [Rx Confirmed 05/07/18] [facility] [facility] Medical History Secondary pulmonary arterial hypertension (Chronic) Nonrheumatic aortic valve insufficiency (Chronic) Non-rheumatic tricuspid valve insufficiency (Chronic) Essential (primary) hypertension (Chronic) Atherosclerosis of coronary artery of [place] heart without angina pectoris (Chronic) Hyperlipidemia (Chronic) TIA (transient ischemic attack) (Chronic) Bilateral carotid artery stenosis (Chronic) Pulmonary embolism (Resolved) Surgical History H/O coronary artery bypass surgery (Resolved 06/2001) History of hip replacement (Resolved) 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) Family History Father CAD (coronary artery disease) Mother CAD (coronary artery disease) Brother CAD (coronary artery disease) Social History Smoking Status: Never smoker ROS Const Const: Positive for weakness, other (Increase weight and SOB with little activity over the last 3 weeks) and fatigue; negative for difficulty sleeping, frequent falls, excessive sweating or headache(s) Eyes Eyes: Negative for loss of peripheral vision, transient loss of vision, tunnel vision, blurry vision or double vision ENT ENT: Positive for dizziness; negative for headache(s), Nosebleed/epistaxis or balance problems Cardio Chest Pain: No Palpitations: No Edema: Bilateral (BLE ankle and pedal edema) Muscle aches with walking: None Resp Respiratory: Positive for SOB with activity, SOB orthopnea\SOB lying down and Cough (dry); negative for SOB at rest or paroxysmal nocturnal dyspnea GI GI: Positive for other (C/O abdominal fullness); negative nausea, heartburn, black,tarry stools or vomiting : Negative for hematuria Musc Musc: Negative for muscle aches/ myalgia, muscle weakness, joint pain or balance problems Skin Skin: Negative non-healing lesions, unusual bruising or rash Neuro Neuro: Positive for lightheadedness, near syncope, weakness and dizziness; negative for blurry vision, double vision, orthostatic symptoms, syncope, lack of coordination, frequent falls or headache(s) Emmanuel Hematologic/Lymphatic: Negative for easy bruising or easy bleeding Endo Endo: Positive for fatigue; negative for excessive sweating or increased thirst/drinking Psych Psych: Negative for anxiety or depression Allergy Allergy/Immunology: Negative for hives, Negative for rash Cardiology Exam Const Appearance: cooperative, healthy appearing, comfortable and no acute distress Nutritional Appearance: well nourished and overweight Orientation: alert, awake and oriented x3 Head Head: normal to inspection Ears: hearing grossly normal bilaterally Nose: external nose normal Face and Sinus: face symmetric Mouth: oral mucosae normal Eyes General: appearance normal, both eyes and all related structures Eyelids: eyelids normal Conjunctivae: conjunctivae normal Pupils: PERRL EOM: EOM intact bilaterally Neck Neck: no JVD and normal visual inspection Carotids: normal carotid upstroke Chest Chest inspection: normal inspection of the chest, normal respiratory effort and symmetric chest movement; negative cough Auscultation: Bilateral: Clear to Auscultation Cardio Rate: regular rate Rhythm: regular rhythm Heart sounds: S1 normal, S2 normal and normal, physiologic split S2; negative rub, gallop or murmur GI GI: normal to inspection and distended Neuro General: alert, awake, oriented x3 and CN's II-XI intact bilaterally Skin Skin: no rashes or lesions noted Extremities Pulses: Normal: Right Posterior Tibial Pulse, Left Posterior Tibial Pulse, Right Radial Pulse, Left Radial Pulse Lower Extremity Edema: +2: Bilateral Psych Psychological: normal affect Supplemental Info Carotid duplex ultrasound from May 2016 showed moderate stenosis of left and right extracranial internal carotid carotids Echocardiogram from July 2013 showed an estimated ejection fraction of 50%, mild mitral valve insufficiency, mild to moderate aortic valve insufficiency, and an RVSP of 50 mmHg. Cardiovascular stress test from June 2013 was negative for myocardial induced ischemia and reported a preserved ejection fraction. Assessment AND Plan 1. Dyspnea on exertion R06.09 Gerardo - DASH Roberts His echocardiogram in July 2013 showed ejection fraction of 50%, mild to moderate aortic valve insufficiency, and RVSP of 50 mmHg. Due to his ongoing dyspnea on exertion he will undergo a repeat echocardiogram to evaluate ejection fraction and valvular status. He will schedule this after his 's health concerns are stable. He will undergo a BMP and BNP evaluation today. Assuming his BNP is elevated, he will start Lasix 80 mg on day 1 and 40 mg on day 2 and day 3 and contact our office before the weekend with an update. If symptoms are improved we will consider reinitiating a lower dose of chlorthalidone. He acknowledges that his dizziness did not worsened or improved since stopping chlorthalidone after last office visit. Orders Orders: 2. Atherosclerosis of [place] coronary artery of [place] heart without angina pectoris I25.10 CABG in 2000 with ARREAGA to LAD, radial graft to obtuse marginal branch, and SVG to RCA; Plan DASH Leonard At last office visit, due to age of bypass grafts and last stress test being in June 2013 it was recommended he undergo a stress test to evaluate bypass graft status. He did not have this completed. He will schedule this after his 's medical issues are stable. He will continue with current medications. Orders Orders: 3. H/O coronary artery bypass surgery Z95.1 CABG in 2000 with ARREAGA to LAD, radial graft to obtuse marginal branch, and SVG to RCA; DASH Benitez As noted above he will undergo a repeat stress test to evaluate bypass graft status. Orders Orders: 4. Essential (primary) hypertension I10 Plan - DASH Roberts His blood pressure is elevated today in office. We will reassess this after his fluid status is improved. If his fluid status improves, but his blood pressure remains elevated, we can consider increasing losartan. 5. Pure hypercholesterolemia E78.00 Plan - DASH Roberts He will continue with current statin medication. Plan Detail Other Medications New: Additional Comments - DASH Roberts Discussed the above patient with Dr. Diaz, he agrees with the plan of care. Thank you for allowing us to participate in the patients plan of care, if you have any questions please do not hesitate to call. This note was generated using a voice recognition system and there may be incorrect words, spelling or punctuation that were not noted when reviewing the office note prior to saving. Coding Level of Care Code Off vis,est,level 4 Diagnoses Dyspnea on exertion R06.09 Atherosclerosis of [place] coronary artery of [place] heart without angina pectoris I25.10 Coronary Disease-Associated Artery/Lesion type: [place] artery H/O coronary artery bypass surgery Z95.1 Essential (primary) hypertension I10 Pure hypercholesterolemia E78.00 Coding Level of Care Code Off vis,est,level 4 Diagnoses Dyspnea on exertion R06.09 Atherosclerosis of [place] coronary artery of [place] heart without angina pectoris I25.10 Coronary Disease-Associated Artery/Lesion type: [place] artery H/O coronary artery bypass surgery Z95.1 Essential (primary) hypertension I10 Pure hypercholesterolemia E78.00 05/07/18 1059 <Electronically signed by Arnie RAMIREZC> Date Arnie Youssef DISTRICT OPERATIONS MANAGERJaneC 05/07/18 1100<Electronically signed by Benito Diaz MD> Cosigner Signature: Date (if applicable) Benito Diaz MD CC: Laura Hinojosa Start: 04-16-2018 End: 04-16-2018 Cardiology Visit Report Comments: See Note; NOTES: [facility] [address] [place] [address] OFFICE VISIT Date of Service: 04/16/18 MR#: [id number] Acct: [id number] Name: REMY BLACKBURN Rep #: [id number] : 1940 Provider: Benito Diaz MD Age/Sex: 77/M Location: [facility] [place] Status: Signed HPI HPI Chief Complaint: Follow up Details: REMY BLACKBURN, is a 77 M who presents to the office today for a cardiovascular outpatient follow-up. Patient has a history of coronary artery disease status post bypass surgery in 2000 with a ARREAGA to the LAD, radial graft to obtuse marginal branch, and SVG to RCA. He also has history of hypertension, hyperlipidemia, and carotid artery disease. Pt. denies chest, arm, jaw, or neck discomfort. His exercise tolerance is stable. Pt. denies symptoms of CHF, palpitations. He has had some dizziness especially when he gets up quickly he felt was due to 1 of his medications. He has had no geronimo syncopal episodes though. His previous tests are as follows: Carotid duplex ultrasound from May 2016 showed moderate stenosis of left and right extracranial internal carotid carotids Echocardiogram from July 2013 showed an estimated ejection fraction of 50%, mild mitral valve insufficiency, mild to moderate aortic valve insufficiency, and an RVSP of 50 mmHg. Cardiovascular stress test from June 2013 was negative for myocardial induced ischemia and reported a preserved ejection fraction. His physical exam demonstrates clear lung fragoso regular rate and rhythm and no pedal edema. His blood pressure is under good control. Intake Vital Signs04/16/18 Height 6 ft 04/16/18 Weight: 190 lb 04/16/18 Body Mass Index (BMI) 25.7 04/16/18 Blood Pressure 112/52 04/16/18 Blood Pressure Location Lt brachial Intake Visit Reasons: 6 M FU (pt r/s from -) Automotive Artist Required: No Is patient in pain?: No Allergies No Known Allergies Allergy (Verified 04/16/18 14:11) Medications Aspirin [Aspirin, Baby] 81 mg PO DAILY@0800 04/18/14 [History Confirmed 04/16/18] Nitroglycerin [Nitrostat] 0.4 mg SUBLINGUAL Q5M PRN 04/18/14 [History Confirmed 04/16/18] Pravastatin [Pravachol] 80 mg PO QHS 04/18/14 [History Confirmed 04/16/18] losartan 25 mg tablet 25 mg PO DAILY #90 tab 08/06/17 [Rx Confirmed 04/16/18] alfuzosin ER 10 mg tablet,extended release 24 hr 10 mg PO QDAY 09/06/17 [History Confirmed 04/16/18] oxybutynin chloride ER 5 mg tablet,extended release 24 hr 5 mg PO QDAY 09/06/17 [History Confirmed 04/16/18] dutasteride 0.5 mg capsule 0.5 mg PO DAILY 04/16/18 [History Confirmed 04/16/18] esomeprazole magnesium 40 mg capsule,delayed release 40 mg PO DAILY 04/16/18 [History Confirmed 04/16/18] PFSH Social History Smoking Status: Never smoker ROS Const Const: Negative for fatigue, weakness, night sweats, excessive sweating, frequent falls, headache(s) or daytime sleepiness Eyes Eyes: Negative for loss of peripheral vision, transient loss of vision, blind spots, double vision or blurry vision ENT ENT: Negative for headache(s), dizziness, balance problems, Nosebleed/epistaxis, tongue swelling or lip swelling Cardio Chest Pain: No Palpitations: No Edema: None Muscle aches with walking: None Resp Respiratory: Positive for SOB with activity; negative for SOB at rest, SOB orthopnea\SOB lying down, Cough or paroxysmal nocturnal dyspnea GI GI: Negative nausea, vomiting, heartburn, black,tarry stools or bright, red blood in stools : Negative for hematuria Musc Musc: Negative for balance problems, muscle aches/ myalgia, muscle weakness or joint pain Skin Skin: Negative non-healing lesions, unusual bruising or rash Neuro Neuro: Positive for lightheadedness; negative for weakness, frequent falls, headache(s), double vision, dizziness, orthostatic symptoms, blurry vision or lack of coordination Emmanuel Hematologic/Lymphatic: Negative for easy bruising or easy bleeding Endo Endo: Negative for fatigue, excessive sweating, cold intolerance, heat intolerance, increased thirst/drinking or hair loss Psych Psych: Negative for anxiety or depression Allergy Allergy/Immunology: Negative for throat swelling, Negative for tongue swelling, Negative for hives, Negative for rash, Negative for lip swelling Cardiology Exam Const Appearance: cooperative, healthy appearing, well developed, well groomed and no acute distress Nutritional Appearance: well nourished and average body habitus Orientation: alert, awake and oriented x3 Head Head: normal to inspection, normocephalic and atraumatic Ears: hearing grossly normal bilaterally and external ears normal Nose: external nose normal, nasal mucous membranes and turbinates normal, nares normal, septum normal, no nasal discharge Face and Sinus: face symmetric Mouth: oral mucosae normal, tongue normal, oropharynx normal and moist mucous membranes Teeth and gingiva: dentition normal Throat: posterior oropharynx normal, tonsils normal and uvula midline Eyes General: appearance normal, both eyes and all related structures Eyelids: eyelids normal Conjunctivae: conjunctivae normal Pupils: PERRL, normal by confrontation and accommodation normal EOM: EOM intact bilaterally Neck Neck: normal visual inspection, trachea midline and no JVD JVD: +5 Carotids: normal carotid upstroke and bounding pulses Chest Chest inspection: normal inspection of the chest, symmetric chest movement and normal respiratory effort Auscultation: Bilateral: Clear to Auscultation Cardio Palpation: normal PMI Rate: regular rate Rhythm: regular rhythm Heart sounds: S1 normal, S2 normal and normal, physiologic split S2; negative rub, gallop or murmur GI GI: normal to inspection, soft, no hepatosplenomegaly and bowel sounds present Neuro General: alert, awake, oriented x3, no focal sensory deficit, gait normal and moves all extremities Skin Skin: no rashes or lesions noted Extremities Pulses: Normal: Right Femoral Pulse, Left Femoral Pulse, Right Dorsalis Pedis Pulse, Left Dorsalis Pedis Pulse, Right Posterior Tibial Pulse, Left Posterior Tibial Pulse, Right Radial Pulse, Left Radial Pulse Lower Extremity Edema: None: Bilateral Musculoskel Musculoskeletal: No joint tenderness Psych Psychological: normal affect Assessment AND Plan 1. Dizziness and giddiness R42 Plan He does have mild dizziness which I suspect is secondary to his chlorthalidone. I will recommend that we discontinue the above and he will remain on his losartan. He will continue to monitor his blood pressures and we will see how he does. 2. Hypertension I10 Plan His blood pressure appears to be under good control the chlorthalidone will be discontinued to see whether there be any improvement in his symptoms. His last echocardiogram from 2013 demonstrated ejection fraction of 50% with pulmonary systolic pressure of 50 mmHg. I like to repeat the above to make sure his numbers have not changed. 3. 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 His last stress test was over 5 years ago. A repeat myocardial perfusion scan will be performed to reassess the above. Orders Orders: 4. Coronary atherosclerosis I25.10 CABG in 2000 with ARREAGA to LAD, radial graft to obtuse marginal branch, and SVG to RCA; Plan As noted above I would recommend repeating his stress test to make sure that his 17-year-old bypass grafts still patent and that he has not developed any progression of disease. Orders Orders: 5. Hyperlipidemia E78.5 Plan He does have a history of hyperlipidemia on high intensity statin. Appropriate repeat lipid profile will be obtained. 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 Coronary atherosclerosis I25.10 Hyperlipidemia E78.5 04/16/18 1432 <Electronically signed by Benito Diaz MD> Date Benito Diaz MD Cosigner Signature: Date (if applicable) CC: Laura Hinojosa Start: 12-11-2017 End: 12-11-2017 Carotid Duplex Ultrasound Comments: See Note; NOTES: [facility] [address] [place] [address] [place] [address] Carotid Duplex Ultrasound 12/11/17 0900 MR#: [id number] Acct: [id number] Name: REMY BLACKBURN Rep #: [id number] : 1940 77 From: Stevo Holman MD Attending Dr: Arnie Youssef NP Status: REG CLI Ordering Dr: Arnie Youssef DISTRICT OPERATIONS MANAGER-C Date: 12/11/17 Location: [facility] Sex: M C Admitted: Reason For Study: carotid stenosis Rt. Velocities/BP Lt. Velocities/BP Prox CCA 89.1/13.5 cm/sec. Prox CCA 107/15.7 cm/sec. Mid CCA 79.7/13.5 cm/sec. Mid CCA 77.0/15.7 cm/sec. Dist CCA 75.6/12.9 cm/sec. Dist CCA 78.6/14.7 cm/sec. Prox ICA 79.4/16.5 cm/sec. Prox ICA 82.1/24.0 cm/sec. Mid ICA 137/28.3 cm/sec. Mid ICA 145/38.5 cm/sec. Dist ICA 116/23.6 cm/sec. Dist ICA 89.6/22.8 cm/sec. Rt. ICA/CCA = 1.7. Lt. ICA/CCA = 1.9. Prox ECA 136/12.6 cm/sec. Prox ECA 97.9/11.1 cm/sec. Rt. Vert. 42.8/10.2 cm/sec. Lt. Vert. 72.3/17.3 cm/sec. Right Extracranial There is homogeneous, smooth atherosclerotic plaque noted in the right common carotid artery. There is heterogeneous, irregular atherosclerotic plaque noted in the right internal carotid artery. There is homogeneous, smooth atherosclerotic plaque noted in the right external carotid artery. Antegrade flow is noted in the right vertebral artery. Abnormal waveform morphology noted in the right vertebral artery. There is heterogeneous, irregular atherosclerotic plaque noted in the left bulb. Left Extracranial There is homogeneous, smooth atherosclerotic plaque noted in the left common carotid artery. There is heterogeneous, irregular atherosclerotic plaque noted in the left internal carotid artery. There is homogeneous, smooth atherosclerotic plaque noted in the left external carotid artery. Antegrade flow is noted in the left vertebral artery. There is heterogeneous, irregular atherosclerotic plaque noted in the left bulb. Procedure Carotid Duplex [address]. The exam was diagnostic. Exam performed in department. Interpretation Summary Moderate (50-69%) stenosis right extracranial internal carotid. Moderate (50-69%) stenosis left extracranial internal carotid. Flow within the vertebral arteries is antegrade bilaterally. Ordering Physician: Arnie Youssef Performed By: Remy Villegas RVT 12/11/17 1517 Date Stevo Holman MD CC: VANESSA Youssef; Rosa Box DO Date Dictated: 12/11/17 0900 Date Transcribed: 12/11/17 151 Plumber And Tinner: Signed Laura Rodriguez Start: 09-06-2017 End: 09-06-2017 Cardiology Visit Report Comments: See Note; NOTES: [facility] [address] [place] [address] [address] [place] [address] OFFICE VISIT Date of Service: 09/06/17 MR#: [id number] Acct: [id number] Name: REMY BLACKBURN Rep #: [id number] : 1940 Provider: VANESSA Youssef Age/Sex: 77/M Location: [facility] [place] Status: Signed HPI HPI Details: REMY BLACKBURN, is a 77 M who presents to the office today for a cardiovascular outpatient follow-up. Patient has a history of coronary artery disease status post bypass surgery in 2000 with a ARREAGA to the LAD, radial graft to obtuse marginal branch, and SVG to RCA. He also has history of hypertension, hyperlipidemia, and carotid artery disease. Pt. denies chest, arm, jaw, or neck discomfort. His exercise tolerance is stable. Pt. denies symptoms of CHF, palpitations, lightheadedness, dizziness, near syncope, or syncopal episodes. Pt. denies edema or claudication issues. Pt. denies orthopnea, PND, fever, chills, blood in urine, blood in stool, myalgia, or unexplainable fatigue. Carotid duplex ultrasound from May 2016 showed moderate stenosis of left and right extracranial internal carotid carotids. Echocardiogram from July 2013 showed an estimated ejection fraction of 50%, mild mitral valve insufficiency, mild to moderate aortic valve insufficiency, and an RVSP of 50 mmHg. Cardiovascular stress test from June 2013 was negative for myocardial induced ischemia and reported a preserved ejection fraction. Intake Vital Signs09/06/17 Height 6 ft 09/06/17 Weight: 194 lb 09/06/17 Body Mass Index (BMI) 26.3 09/06/17 Blood Pressure 122/60 Intake Visit Reasons: 6 M Automotive Artist Required: No Accompanied by: Is patient in pain?: No Allergies No Known Allergies Allergy (Verified 04/18/14 20:00) Medications Aspirin [Aspirin, Baby] 81 mg PO DAILY@0800 04/18/14 [History Confirmed 08/29/17] Esomeprazole Mag Trihydrate [Nexium] 40 mg PO DAILY 04/18/14 [History Confirmed 08/29/17] Nitroglycerin [Nitrostat] 0.4 mg SUBLINGUAL Q5M PRN 04/18/14 [History Confirmed 08/29/17] Pravastatin [Pravachol] 80 mg PO QHS 04/18/14 [History Confirmed 08/29/17] chlorthalidone 25 mg tablet 25 mg PO QDAY #90 tab 08/06/17 [Rx Confirmed 08/29/17] dutasteride 0.5 mg capsule 0.5 mg PO QDAY #90 cap 08/06/17 [Rx Confirmed 08/29/17] losartan 25 mg tablet 25 mg PO DAILY #90 tab 08/06/17 [Rx Confirmed 08/29/17] alfuzosin ER 10 mg tablet,extended release 24 hr 10 mg PO QDAY 09/06/17 [History Confirmed 09/06/17] oxybutynin chloride ER 5 mg tablet,extended release 24 hr 5 mg PO QDAY 09/06/17 [History Confirmed 09/06/17] PFSH Social History Smoking Status: Never smoker ROS Const Const: Negative for fatigue, weakness, body ache, fever(s) or chills ENT ENT: Negative for dizziness Cardio Chest Pain: No Palpitations: Positive for No Edema: None Muscle aches with walking: None Resp Respiratory: Negative for SOB with activity, SOB at rest, SOB orthopnea\SOB lying down or paroxysmal nocturnal dyspnea GI GI: Negative nausea, black,tarry stools, bright, red blood in stools or vomiting blood/hematemesis : Negative for hematuria or frequent nighttime urination/ nocturia Musc Musc: Negative for muscle aches/ myalgia Neuro Neuro: Negative for weakness, Negative for dizziness, Negative for lightheadedness, Negative for near syncope, Negative for syncope, Negative for orthostatic symptoms Endo Endo: Negative for fatigue Cardiology Exam Const Appearance: cooperative, healthy appearing, comfortable and no acute distress Orientation: alert, awake and oriented x3 Head Head: normal to inspection Mouth: oral mucosae normal Neck Neck: no JVD and normal visual inspection Carotids: normal carotid upstroke Chest Chest inspection: normal inspection of the chest and normal respiratory effort Auscultation: Bilateral: Clear to Auscultation Cardio Rate: regular rate Rhythm: regular rhythm Heart sounds: murmur (LLSB systolic ); negative rub or gallop Murmur: Grade 2/6 GI GI: normal to inspection Neuro General: alert, awake, oriented x3 and CN's II-XI intact bilaterally Skin Skin: no rashes or lesions noted Extremities Pulses: Normal: Right Posterior Tibial Pulse, Left Posterior Tibial Pulse, Right Radial Pulse, Left Radial Pulse Lower Extremity Edema: None: Bilateral Psych Psychological: normal affect Assessment AND Plan 1. Atherosclerosis of [place] coronary artery of [place] heart without angina pectoris I25.10 CABG in 2000 with ARREAGA to LAD, radial graft to obtuse marginal branch, and SVG to RCA; Plan - DASH Roberts Patient denies any chest pain, arm pain, jaw pain, neck pain, shortness of breath, or fatigue suggestive of angina at this time. We will continue to monitor this. We will not make any medication regimen changes and will continue risk factor modification. At next office visit it would be approximately 5 years since his last stress test. At that time we can consider repeating it for surveillance purposes. 2. Essential hypertension I10 Plan - DASH Roberts Patient's blood pressure is well-controlled today in the office. We will continue to monitor this. We will not make any medication regimen changes. 3. Mixed hyperlipidemia E78.2 Plan - DASH Roberts Patient states having this evaluated by primary care physician. We will continue current cholesterol lowering medication. 4. Sinus bradycardia R00.1 Plan - DASH Roberts Patient remains asymptomatic with this. He is not on any rate lowering medication. We will continue to monitor this. 5. Bilateral carotid artery stenosis I65.23 Plan - DASH Roberts Patient's most recent carotid duplex ultrasound is noted above. We will repeat this test to evaluate progression of disease. Patient will continue with cholesterol lowering medication. He will continue to monitor his weight and exercise. We will wait for results of the ultrasound for further recommendation. Orders Orders: Plan Detail Additional Comments - DASH Roberts Discussed the above patient with Dr. Diaz, he agrees with the plan of care. Thank you for allowing us to participate in the patients plan of care, if you have any questions please do not hesitate to call. This note was generated using a voice recognition system and there may be incorrect words, spelling or punctuation that were not noted when reviewing the office note prior to saving. 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) Coding Level of Care Code Off vis,est,level 3 Diagnoses Atherosclerosis of [place] coronary artery of [place] heart without angina pectoris I25.10 Coronary Disease-Associated Artery/Lesion type: [place] artery [place] vs. transplanted heart: [place] heart Associated angina: without angina Essential hypertension I10 Hypertension type: essential hypertension Mixed hyperlipidemia E78.2 Hyperlipidemia type: mixed hyperlipidemia Sinus bradycardia R00.1 Bilateral carotid artery stenosis I65.23 Coding Level of Care Code Off vis,est,level 3 Diagnoses Atherosclerosis of [place] coronary artery of [place] heart without angina pectoris I25.10 Coronary Disease-Associated Artery/Lesion type: [place] artery [place] vs. transplanted heart: [place] heart Associated angina: without angina Essential hypertension I10 Hypertension type: essential hypertension Mixed hyperlipidemia E78.2 Hyperlipidemia type: mixed hyperlipidemia Sinus bradycardia R00.1 Bilateral carotid artery stenosis I65.23 09/06/17 1426 <Electronically signed by Arnie BOWLING> Date Arnie BOWLING 09/06/17 1648<Electronically signed by Benito Diaz MD> Cosigner Signature: Date (if applicable) Benito Diaz MD CC: Laura Zepedaon Start: 01-25-2017 End: 01-25-2017 Follow Up Appt 6 months Regi Bell Start: 01-25-2017 End: 01-25-2017 NAHOMI Diaz MD Start: 08-01-2016 End: 08-01-2016 LUIS ANTONIO Raman PA-C Work Phone: Start: 08-01-2016 End: 08-01-2016 Follow Up Appt 6 months Lakshmi Raman PA-C Work Phone: Start: 06-21-2016 End: 06-21-2016 Carotid Duplex Ultrasound Comments: See Note; NOTES: [facility] [address] [place] [address] Carotid Duplex Ultrasound 06/19/16 0842 MR#: [id number] Acct: [id number] Name: REMY BLACKBURN Rep #: [id number] : 1940 76 From: Stevo Holman MD Attending Dr: Rosa Box DO Status: REG CLI Ordering Dr: Rosa Box DO Date: 06/19/16 Location: US Sex: M C Admitted: Reason For Study: carotid stenosis Rt. Velocities/BP Lt. Velocities/BP Prox CCA 99.7/14.7 cm/sec. Prox CCA 90.3/12.9 cm/sec. Mid CCA 82.7/12.9 cm/sec. Mid CCA 108.0/14.1 cm/sec. Dist CCA 75.6/12.9 cm/sec. Dist CCA 85.0/14.1 cm/sec. Prox ICA 89.6/20.4 cm/sec. Prox ICA 84.4/21.1 cm/sec. Mid ICA 125.0/29.1 cm/sec. Mid ICA 138.0/29.8 cm/sec. Dist ICA 133.0/29.9 cm/sec. Dist ICA 84.4/18.2 cm/sec. Rt. ICA/CCA = 133.0/82.7=1.6. Lt. ICA/CCA = 138.0/108.0=1.3. Prox ECA 147.0/0.0 cm/sec. Prox ECA 96.2/0.0 cm/sec. Rt. Vert. 56.2/12.6 cm/sec. Lt. Vert. 86.2/14.1 cm/sec. Right Extracranial There is intimal thickening but no significant atherosclerotic plaque noted in the right common carotid artery. There is homogeneous, smooth atherosclerotic plaque noted in the right internal carotid artery. The tortuous nature of the right internal carotid artery may result in flow velocities overestimating the degree of stenosis. There is homogeneous, smooth atherosclerotic plaque noted in the right external carotid artery. Antegrade flow is noted in the right vertebral artery. There is heterogeneous, smooth atherosclerotic plaque noted in the left bulb. There is homogeneous, smooth atherosclerotic plaque noted in the left bulb. Left Extracranial There is intimal thickening but no significant atherosclerotic plaque noted in the left common carotid artery. There is heterogeneous, irregular atherosclerotic plaque noted in the left internal carotid artery. The tortuous nature of the left internal carotid artery may result in flow velocities overestimating the degree of stenosis. There is homogeneous, smooth atherosclerotic plaque noted in the left external carotid artery. Antegrade flow is noted in the left vertebral artery. There is heterogeneous, irregular atherosclerotic plaque noted in the left bulb. There is homogeneous, smooth atherosclerotic plaque noted in the left bulb. Procedure Carotid Duplex 85679. The exam was diagnostic. Exam performed in department. Interpretation Summary Moderate (50-69%) stenosis right extracranial internal carotid. Moderate (50-69%) stenosis left extracranial internal carotid. Flow within the vertebral arteries is antegrade bilaterally. Ordering Physician: Rosa Box Performed By: Monserrat Felipe RDCS, RVT 06/21/16 1045 Date Stevo Holman MD CC: Rosa Box DO Date Dictated: 06/19/16 0842 Date Transcribed: 06/21/16 104 Plumber And Tinner: Signed Rosa Box Work Phone: Start: 06-19-2016 End: 06-19-2016 Thyroid Comments: See Note; NOTES: [facility] Imaging Services [address] [place] [address] Verdana 4d Thyroid MR#: [id number] Acct: [id number] Name: REMY BLACKBURN Rep #: [id number] : 1940 M 76 From: Juan Manuel Bhat MD PCP: Rosa Box DO Status: REG CLI Study: Thyroid Date of Exam: 06/19/16 Exam# [id number] Ordering Dr: Rosa Box DO STUDY: THYROID ULTRASOUND REASON FOR EXAM: Male, 76 years old. The patient has a history of thyroid nodules. TECHNIQUE: Ultrasound evaluation of the thyroid was performed with real-time and static ovalle-scale imaging. COMPARISON: Comparison is made with prior examination dated February 04, 2015. FINDINGS: RIGHT LOBE: The right lobe of the thyroid gland measures 4.5 cm x 1.5 sinus by 1.2 cm. There is a homogeneous echotexture. Once again, there are 4 hypoechoic solid nodules in the upper and midportion of the right lobe. The largest measures 1.3 cm x 0.9 cm x 0.8 cm. This has increased slightly in size. There is evidence of intranodular vascularity. LEFT LOBE: The left lobe of the thyroid gland measures 4.0 cm x 1.5 cm x 1.2 cm. There is a homogeneous echotexture. Was again, there are 6 hypoechoic solid nodules in the left lobe. The largest measures 1.1 cm x 1.1 cm x 0.9 cm. Calcifications are seen within. There is evidence of intranodular vascularity. ISTHMUS: The isthmus measures 2.0 mm. The regional lymph nodes are normal. US/Thyroid IMPRESSION: Multiple thyroid nodules as described. There is been essentially no change except for mild enlargement of the dominant nodule in the right lobe now measuring 1.3 cm x 0.9 cm x 0.8 cm. Electronically Signed: Juan Manuel Bhat MD at 9:10 EST Tel [phone], Service support [phone], CC: Rosa Box DO Plumber And Tinner: Signed Rosa Box Work Phone: Start: 02-01-2016 End: 07-18-2016 Follow Up Appt 6 months Regi Bell Start: 02-01-2016 End: 07-18-2016 NAHOMI Diaz MD Start: 08-19-2015 End: 08-19-2015 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Lakshmi Raman PA-C Work Phone: Start: 08-19-2015 End: 08-19-2015 Electrocardiogram, complete Lakshim Raman PA-C Work Phone: Start: 08-19-2015 End: 08-19-2015 Follow Up Appt 6 months Lakshmi Raman PA-C Work Phone: Start: 02-18-2015 End: 02-18-2015 Dietary management education, guidance, and counseling Kika Escalante Start: 02-18-2015 End: 02-19-2015 Documentation of current medications Benito Diaz MD Start: 02-18-2015 End: 02-18-2015 Follow Up Appt 6 months Regi Bell Start: 02-18-2015 End: 02-18-2015 MMM Benito Diaz MD Start: 02-15-2015 End: 02-15-2015 Carotid Duplex Ultrasound Comments: See Note; NOTES: [facility] [address] [place] [address] Carotid Duplex Ultrasound 02/04/15 1722 MR#: [id number] Acct: [id number] Name: REMY BLACKBURN Rep #: [id number] : 1940 74 From: Stevo Holman MD Attending Dr: Rosa Box DO Status: REG CLI Ordering Dr: Rosa Box DO Date: 02/04/15 Location: US Sex: M C Admitted: Rt. Velocities/BP Lt. Velocities/BP Prox CCA 142/18 cm/sec. Prox CCA 112/13 cm/sec. Mid CCA 100/18 cm/sec. Mid CCA 104/14 cm/sec. Dist CCA 98/17 cm/sec. Dist CCA 83/17 cm/sec. Prox ICA 105/19 cm/sec. Prox ICA 70/18 cm/sec. Mid ICA 104/20 cm/sec. Mid ICA 62/14 cm/sec. Dist ICA 53/11 cm/sec. Dist ICA 92/26 cm/sec. Rt. ICA/CCA = 1.1. Lt. ICA/CCA = .9. Prox ECA 177/13 cm/sec. Prox ECA 133/13 cm/sec. Rt. Vert. 41/0 cm/sec. Lt. Vert. 78/14 cm/sec. Right Extracranial There is intimal thickening but no significant atherosclerotic plaque noted in the right common carotid artery. There is homogeneous, smooth atherosclerotic plaque noted in the right internal carotid artery. There is homogeneous, smooth atherosclerotic plaque noted in the right external carotid artery. Antegrade flow is noted in the right vertebral artery. There is heterogeneous, smooth atherosclerotic plaque noted in the right bulb. Left Extracranial There is intimal thickening but no significant atherosclerotic plaque noted in the left common carotid artery. There is heterogeneous, irregular atherosclerotic plaque noted in the left internal carotid artery. The left internal carotid artery is very tortuous. There is intimal thickening but no significant atherosclerotic plaque noted in the left external carotid artery. Antegrade flow is noted in the left vertebral artery. There is heterogeneous, irregular atherosclerotic plaque noted in the left bulb. There is homogeneous, smooth atherosclerotic plaque noted in the left bulb. Procedure Carotid Duplex 98402. Exam performed in department. Interpretation Summary Mild (<50%) stenosis right extracranial internal carotid. Mild (<50%) stenosis left extracranial internal carotid. Flow within the vertebral arteries is antegrade bilaterally. Ordering Physician: Rosa Box Referring Physician: Rosa Box D.O. Performed By: Roma Barbosa RDCS 02/15/152009 Date Stevo Holman MD CC: Rosa Box DO Date Dictated: 02/04/15 1722 Date Transcribed: 02/15/152009 Plumber And Tinner: Signed Rosa Box Work Phone: Start: 02-04-2015 End: 02-05-2015 Thyroid Comments: See Note; NOTES: [facility] [address] [facility] [place] [address] Ultrasound Report MR#: [id number] Acct: [id number] Name: REMY BLACKBURN Rep #: [id number] : 1940 M 74 From: Juan Manuel Bhat MD PCP: Rosa Box DO Status: REG CLI Study: Thyroid Date of Exam: 02/04/15 Exam# [id number] Ordering Dr: Rosa Box DO STUDY: THYROID ULTRASOUND REASON FOR EXAM: Male, 74 years old. Thyroid nodules. TECHNIQUE: Ultrasound evaluation of the thyroid was performed with real-time and static ovalle-scale imaging. COMPARISON: Comparison is made with prior examination dated February 06, 2014. FINDINGS: RIGHT LOBE: The right lobe of the thyroid gland measures 4.0 cm x 1.7 cm x 1.6 cm. There is a homogeneous echotexture. Once again, there are 4 hypoechoic solid nodules in the upper and mid portion of the right lobe. The largest measures 1.1 cm x 0.8 cm x 0.8 cm. These are essentially unchanged. LEFT LOBE: The left lobe of the thyroid gland measures 4.8 cm x 1.8 cm x 2.0 cm. There is a homogeneous echotexture. Once again, there are at least 6 hypoechoic solid nodules in the left lobe the largest measures 1.5 cm x 1 cm x 0.8 cm. This is unchanged. ISTHMUS: The isthmus measures 2.0 mm. The regional lymph nodes are normal. IMPRESSION: Stable bilateral thyroid nodules. Electronically Signed: Juan Manuel Bhat MD at 15:36 EDT Tel [phone], Service support [phone], CC: Rosa Box DO Plumber And Tinner: Signed Rosa Box Work Phone: Start: 08-18-2014 End: 08-18-2014 Chest PA and Lateral Comments: See Note; NOTES: [facility] Imaging Services [address] [place], [place] [address] [address] Radiology Report MR#: [id number] Acct: [id number] Name: REMY BLACKBURN Rep #: [id number] : 1940 M 74 From: Juan Manuel Bhat MD PCP: Rosa Box DO Status: REG CLI Study: Chest PA and Lateral Date of Exam: 08/18/14 Exam# [id number] Ordering Dr: Rosa Box DO STUDY: X-RAY CHEST REASON FOR EXAM: Male, 74 years old. Followup examination. TECHNIQUE: PA and lateral views of the chest. COMPARISON: Comparison is made with prior study dated July 18, 2013. FINDINGS: Hyperinflation. Calcified old granulomatous disease. No acute abnormality is present. There is no demonstrated pleural abnormality. Sternal cerclage wires and vascular clips are present from a prior sternotomy and coronary artery bypass graft procedure (CABG). Normal mediastinum and susie. Normal visualized pulmonary arteries. Normal visualized aortic arch and descending thoracic aorta. There are diffuse degenerative changes of the visualized thoracic spine. Normal visualized ribs, clavicles, and shoulders. There is no demonstrated abnormality of the visualized soft tissue structures of the upper abdomen. IMPRESSION: Hyperinflation. The previously seen bibasilar changes have resolved. Electronically Signed: Juan Manuel Bhat MD at 16:15 EST Tel [phone], Service support [phone], RAD/Chest PA and Lateral IMPRESSION: Hyperinflation. The previously seen bibasilar changes have resolved. Electronically Signed: Juan Manuel Bhat MD at 16:15 EST Tel [phone], Service support [phone], CC: Rosa Box DO Plumber And Tinner: Signed Rosa Box Work Phone: Start: 08-18-2014 End: 08-18-2014 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Lakshmi Raman PA-C Work Phone: Start: 08-18-2014 End: 08-19-2014 Documentation of current medications Lakshmi Raman PA-C Work Phone: Start: 08-18-2014 End: 08-18-2014 Follow Up Appt 6 months Lakshmi Raman PA-C Work Phone: Start: 08-18-2014 End: 08-18-2014 Follow Up Appt Other Lakshmi Raman PA-C Work Phone: Start: 02-13-2014 End: 02-13-2014 Follow Up Appt 6 months Regi Bell Start: 02-13-2014 End: 02-13-2014 NAHOMI Diaz MD Start: 02-11-2014 End: 02-11-2014 Carotid Duplex Ultrasound Comments: See Note; NOTES: [facility] [address] [place] [address] Carotid Duplex Ultrasound 02/06/14 1023 MR#: [id number] Acct: [id number] Name: REMY BLACKBURN Rep #: [id number] : 1940 73 From: Stevo Holman MD Attending Dr: Rosa Box DO Status: REG CLI Ordering Dr: Rosa Box DO Date: 02/06/14 Location: US Sex: M C Admitted: Rt. Velocities/BP Lt. Velocities/BP Prox CCA 99.1/14.7 cm/sec. Prox CCA 93.8/ 12.9 cm/sec. Mid CCA 90.3/16.4 cm/sec. Mid CCA 96.7/14.7 cm/sec. Dist CCA 77.4/11.1 cm/sec. Dist CCA 83.8/ 12.9 cm/sec. Prox ICA 87.9/17.6 cm/sec. Prox ICA 130.0/ 28.3 cm/sec. Mid ICA 76.8/18.8 cm/sec. Mid ICA 110.0/ 20.7 cm/sec. Dist ICA 75.6/17.2 cm/sec. Dist ICA 118.0/ 24.4 cm/sec. Rt. ICA/CCA = .97. Lt. ICA/CCA = 1.3. Prox ECA 117.0/8.2 cm/sec. Prox ECA 83.3/5.3 cm/sec. Rt. Vert. 56.3/14.7 cm/sec. Lt. Vert. 66.0/ 16.5 cm/sec. Right Extracranial There is intimal thickening but no significant atherosclerotic plaque noted in the right common carotid artery. There is heterogeneous, smooth atherosclerotic plaque noted in the right internal carotid artery. There is intimal thickening but no significant atherosclerotic plaque noted in the right external carotid artery. Antegrade flow is noted in the right vertebral artery. Left Extracranial There is intimal thickening but no significant atherosclerotic plaque noted in the left common carotid artery. There is heterogeneous, smooth atherosclerotic plaque noted in the left internal carotid artery. There is intimal thickening but no significant atherosclerotic plaque noted in the left external carotid artery. Antegrade flow is noted in the left vertebral artery. Procedure Carotid Duplex [id number]. Exam performed in department. Interpretation Summary Mild (<50%) stenosis right extracranial internal carotid. Moderate (50-69%) stenosis left extracranial internal carotid. Flow within the vertebral arteries is antegrade bilaterally. Ordering Physician: Rosa Box Performed By: Patsy Jordan RVT : Rosa Box DO Date Dictated: 02/06/14 1023 Date Transcribed: 02/11/14 2227 Plumber And Tinner: Signed Larua Rodriguez Start: 02-06-2014 End: 02-06-2014 Thyroid Comments: See Note; NOTES: [facility] Imaging Services [address] [place] [address] Ultrasound Report MR#: [id number] Acct: [id number] Name: REMY BLACKBURN Rep #: [id number] : 1940 M 73 From: Juan Manuel Bhat MD PCP: Rosa Box DO Status: REG CLI Study: Thyroid Date of Exam: 02/06/14 Exam# [id number] Ordering Dr: Rosa Box DO STUDY: THYROID ULTRASOUND REASON FOR EXAM: Male, 73 years old. Thyroid nodules. TECHNIQUE: Ultrasound evaluation of the thyroid was performed with real-time and static ovalle-scale imaging. COMPARISON: Comparison is made with prior examination dated September 16, 2012. FINDINGS: RIGHT LOBE: The right lobe of the thyroid gland measures 4.8 cm x 2.4 cm x 1.4 cm. There is a homogeneous echotexture. There are 4 hypoechoic solid nodules in the upper and midportion of the right lobe. The largest measures 1 cm x 0.8 cm x 0.8 cm. There has been essentially no change. LEFT LOBE: The left lobe of the thyroid gland measures 4.8 cm x 1.9 cm x 1.6 cm. There is a homogeneous echotexture. There are at least 6 hypoechoic solid nodules in the left lobe. The largest measures 1.2 cm x 0.9 cm x 0.9 cm. There has been essentially no change. ISTHMUS: The isthmus measures 3.0 mm. IMPRESSION: Multiple nodules are seen in both lobes of the thyroid. There has been essentially no change. Electronically Signed: Juan Manuel Bhat MD at 14:13 EDT Tel [phone], Service support [phone], CC: Rosa Box DO Plumber And Tinner: Signed Rosa Box Work Phone: Start: 11-11-2013 End: 08-05-2014 24 hour holter monitor Lakshmi Raman PA-C Work Phone: Start: 11-11-2013 End: 08-05-2014 Electrocardiogram, complete Lakshmi Raman PA-C Work Phone: Start: 09-29-2013 End: 09-29-2013 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Lakshmi Raman PA-C Work Phone: Start: 09-29-2013 End: 09-29-2013 Follow Up Appt 3 months Lakshmi Raman PA-C Work Phone: Start: 09-29-2013 End: 09-29-2013 Follow Up BP Check Lakshmi Raman PA-C Work Phone: Start: 08-01-2013 End: 08-01-2013 *BMP Benito Diaz MD Start: 08-01-2013 End: 08-01-2013 BNP Benito Diaz MD Start: 08-01-2013 End: 09-16-2013 Ct orbit/ear/fossa w/o dye Benito Diaz MD Start: 08-01-2013 End: 09-16-2013 Echocardiography Benito Diaz MD Start: 08-01-2013 End: 08-01-2013 Follow Up Appt 2 months Regi Bell Start: 08-01-2013 End: 08-01-2013 MMM Benito Diaz MD Start: 07-28-2013 End: 07-30-2013 Nuclear Stress Test - Chemical Comments: See Note; NOTES: [facility] Imaging Services [address] [place] [address] Nuclear Medicine Report MR#: [id number] Acct: [id number] Name: REMY BLACKBURN Rep #: [id number] : 1940 M 73 From: Benito Diaz MD PCP: Status: REG CLI Study: Nuclear Stress Test - Chemical Date of Exam: 07/28/13 Exam# [id number] Ordering Dr: Rosa Box DO PHARMACOLOGIC MYOCARDIAL PERFUSION STRESS TEST REASON FOR EVALUATION: This is a 73-year-old man with a history of coronary artery disease status post coronary artery bypass surgery who presents with shortness of breath. BASELINE INFORMATION: Resting EKG demonstrates sinus bradycardia with a rate of 53 beats per minute. Normal intervals are noted. STRESS TEST: 0.4 mg of regadenoson was infused per usual protocol followed by rapid intravenous saline flush injection. Continuous EKG monitoring was performed. The maximum heart rate attained was 70 beats per minute, which was 47% of maximum predicted heart rate. The maximum workload attained was 1 MET. At rest , there were no ST or T-wave changes noted to suggest abnormal flow reserve. At peak infusion, no ST or T-wave changes were noted to suggest abnormal flow reserve. Resting blood pressure was 160/90 with a final blood pressure of 160/ 86. No evidence of ischemia was noted. MYOCARDIAL PERFUSION PROTOCOL: 14.1 mCi of Sestamibi was injected at rest. 0.4 mg of regadenoson was infused per usual protocol. At peak infusion, 42.2 mCi of Sestamibi was injected. Stress images were obtained. Stress and rest images were reconstructed and compared in the short axis, vertical long, and horizontal long axes. Gated images were also obtained. PERFUSION SPECT ANALYSIS: Review of the images demonstrated normal uptake of tracer noted in all areas of the myocardium on the stress and resting images to a similar extent. No reversibility was noted to suggest ischemia. No infarct was noted. GATED SPECT ANALYSIS: The left ventricle was noted to be normal in size with an estimated ejection fraction of 56%. No wall motion abnormalities were noted. CONCLUSION: 1. Normal pharmacologic myocardial perfusion stress test. 2. Preserved ejection fraction. CC: Rosa Box DO Plumber And Tinner: FROST Signed Rosa Box Work Phone: Start: 07-18-2013 End: 07-18-2013 Chest PA and Lateral Comments: See Note; NOTES: [facility] Imaging Services [address] [place] [address] Radiology Report MR#: [id number] Acct: [id number] Name: REMY BLACKBURN Rep #: [id number] : 1940 M 73 From: Juan Manuel Bhat MD PCP: Status: REG CLI Study: Chest PA and Lateral Date of Exam: 07/18/13 Exam# [id number] Ordering Dr: Rosa Box DO STUDY: X-RAY CHEST REASON FOR EXAM: Male, 73 years old. Shortness of breath. TECHNIQUE: PA and lateral views of the chest. COMPARISON: Comparison is made with prior study dated January 22, 2012. FINDINGS: Elevation of the right hemidiaphragm. Mild increased markings in the right midlung as well as in the left lower lobe suggestive of atelectasis. There is blunting of the costophrenic angles bilaterally. Sternal cerclage wires and vascular clips are present from a prior sternotomy and coronary artery bypass graft procedure (CABG). Normal mediastinum and susie. Normal visualized pulmonary arteries. Normal visualized aortic arch and descending thoracic aorta. There are diffuse degenerative changes of the visualized thoracic spine. Normal visualized ribs, clavicles, and shoulders. There is no demonstrated abnormality of the visualized soft tissue structures of the upper abdomen. IMPRESSION: Elevation of the right hemidiaphragm with mild degree of bibasilar atelectasis and blunting of the costophrenic angles bilaterally. Electronically Signed: Juan Manuel Bhat M.D. 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 Colonoscopy Melissa Gee Comment on above: 04-28-08, FU in 5 yrs. Eye sx Mya Braga Comment on above: rt eye 118 Eye sx Melissa Gravius Comment on above: rt eye 18 Eye sx Shaina aviles Comment on above: rt eye 18 Past history of procedure Melissa Gravius Comment on above: 04-28-08, FU in 5 yrs. Past history of procedure Shaina Jules Comment on above: 04-28-08, FU in 5 yrs. Past history of procedure Rosiemars Gil GROUND WORKER Prosthetic arthropla sty of the hip Mya Braga Comment on above: partial Total replacement of hip Jonnathan shabbir Messenger Comment on above: partial Total replacement of hip Omkar min Gravius Comment on above: partial Total replacement of hip oMy Jules Comment on above: partial Total replacement of hip Madeline lsea [place] GROUND WORKER Vasectomy Alvina L Long Vasectomy Mya Braga Vasectomy Alvina L Long Vasectomy Mya Messenger Vasectomy Melissa Gravius Vasectomy planned Melissa Gra vius Vasectomy planned Alvina L Lo ng Vasectomy planned Shaina J ohnson Vasectomy planned Rosie Ma nchak GROUND WORKER Shaina aviles GROUND WORKER Rosie Manchak GROUND WORKER Melissa Gravius GROUND WORKER Plan of Treatment Date Care Activity Detail Author Start: 06-13-2021 Procedure Education [facility]; [facility] Work Phone: Start: 06-13-2021 Provider Instructions for Treatment [facility] Work Phone: Start: 07-15-2020 Procedure Education [facility] Work Phone: Start: 07-15-2020 Provider Instructions for Treatment [facility] Work Phone: Start: 07-01-2020 Procedure Education [facility] Work Phone: Start: 07-01-2020 Provider Instructions for Treatment [facility] Work Phone: Start: 07-01-2020 TSH Qn TSH (88024) [facility] Work Phone: Start: 07-01-2020 Urnls dip stick/tablet reagent auto microscopy URINALYSIS, W/ MICRO (17060) [facility] Work Phone: Start: 07-01-2020 Urine albumin quantitative MICROALBUMIN: CREATININE RATIO (33255) AND (88195) [facility] Work Phone: Start: 07-01-2020 Comprehensive metabolic panel METABOLIC PANEL, COMPREHENSIVE (14620) [facility] Work Phone: Start: 07-01-2020 Lipid panel LIPID PANEL (24882) [facility] Work Phone: Start: 07-01-2020 Blood count manual cell count each CBC with auto diff (06392) [facility] Work Phone: Start: 09-04-2019 Procedure Education [facility] Work Phone: Start: 11-29-2017 Provider Instructions for Treatment [facility] Work Phone: Start: 11-29-2017 Assay of thyroid stimulating hormone tsh [facility] Work Phone: Start: 11-29-2017 Thyrotropin Qn TSH (25815) [facility] Work Phone: Start: 11-29-2017 Urnls dip stick/tablet reagent auto microscopy [facility] Work Phone: Start: 11-29-2017 Urine albumin quantitative [facility] Work Phone: Start: 11-29-2017 Comprehensive metabolic panel [facility] Work Phone: Start: 11-29-2017 Lipoprotein blood сергей numbers & subclasses [facility] Work Phone: Start: 11-29-2017 Protein mass conc LIPOPROTEIN, BLD, BY NMR (39503) [facility] Work Phone: Start: 11-29-2017 Lipid panel [facility] Work Phone: Start: 11-29-2017 Blood count complete auto&auto difrntl wbc [facility] Work Phone: Start: 09-11-2017 Provider Instructions for Treatment [facility] Work Phone: Start: 08-28-2017 Provider Instructions for Treatment [facility] Work Phone: Start: 08-09-2017 End: 08-09-2017 Appointment Appointment [facility] Work Phone: Start: 08-07-2017 End: 08-07-2017 Appointment Appointment [facility] Work Phone: Start: 01-25-2017 Procedure Education [facility] Work Phone: Start: 01-25-2017 Provider Instructions for Treatment [facility] Work Phone: Start: 01-25-2017 End: 01-25-2017 Appointment Appointment [facility] Work Phone: Start: 01-25-2017 End: 01-25-2017 Follow Up Appt 6 months Follow Up Appt 6 months [facility] Work Phone: Start: 01-25-2017 End: 01-25-2017 MMM MMM [facility] Work Phone: Start: 08-01-2016 End: 08-01-2016 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[facility] Work Phone: Start: 08-01-2016 End: 08-01-2016 Follow Up Appt 6 months Follow Up Appt 6 months [facility] Work Phone: Start: 07-04-2016 Procedure Education [facility] Work Phone: Start: 07-04-2016 Provider Instructions for Treatment [facility] Work Phone: Start: 07-04-2016 Assay of prostate specific antigen total [facility] Work Phone: Start: 07-04-2016 Protein mass conc PSA (PROSTATE SPECIFIC ANTIGEN) (V76.44) [facility] Work Phone: Start: 07-04-2016 Urine albumin quantitative [facility] Work Phone: Start: 07-04-2016 25 hydroxy includes fractions if performed [facility] Work Phone: Start: 07-04-2016 Assay of thyroid stimulating hormone tsh [facility] Work Phone: Start: 07-04-2016 Thyrotropin Qn TSH (THYROID STIMULATING HORMONE) (87690) [facility] Work Phone: Start: 07-04-2016 Lipid panel [facility] Work Phone: Start: 07-04-2016 Comprehensive metabolic panel [facility] Work Phone: Start: 07-04-2016 Blood count complete auto&auto difrntl wbc [facility] Work Phone: Start: 02-01-2016 End: 07-18-2016 Follow Up Appt 6 months Follow Up Appt 6 months [facility] Work Phone: Start: 02-01-2016 End: 07-18-2016 MMM MMM [facility] Work Phone: Start: 12-22-2015 Procedure Education [facility] Work Phone: Start: 09-28-2015 Procedure Education [facility] Work Phone: Start: 09-28-2015 Provider Instructions for Treatment [facility] Work Phone: Start: 08-19-2015 End: 08-19-2015 *Hepatic Function Panel *Hepatic Function Panel [facility] Work Phone: Start: 08-19-2015 End: 08-19-2015 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[facility] Work Phone: Start: 08-19-2015 End: 08-19-2015 Electrocardiogram, complete EKG (In office) [facility] Work Phone: Start: 08-19-2015 End: 08-19-2015 Follow Up Appt 6 months Follow Up Appt 6 months [facility] Work Phone: Start: 08-19-2015 End: 08-19-2015 Lipid panel [AGGREGATE] *Lipid Profile CC PCP [facility] Work Phone: Start: 05-14-2015 Procedure Education [facility] Work Phone: Start: 05-14-2015 Provider Instructions for Treatment [facility] Work Phone: Start: 05-14-2015 Hemoglobin A1c/Hemoglobin.total mass fraction (Bld) HgA1C , Office (78185) [facility] Work Phone: Start: 05-14-2015 Hemoglobin glycosylated a1c [facility] Work Phone: Start: 02-18-2015 End: 02-18-2015 Follow Up Appt 6 months Follow Up Appt 6 months [facility] Work Phone: Start: 02-18-2015 End: 02-18-2015 MMM MMM [facility] Work Phone: Start: 12-25-2014 Procedure Education [facility] Work Phone: Start: 12-25-2014 Assay of thyroid stimulating hormone tsh [facility] Work Phone: Start: 12-25-2014 Thyrotropin Qn TSH (77859) [facility] Work Phone: Start: 12-25-2014 Urine albumin quantitative [facility] Work Phone: Start: 12-25-2014 Urnls dip stick/tablet reagent auto microscopy [facility] Work Phone: Start: 12-25-2014 Blood count complete auto&auto difrntl wbc [facility] Work Phone: Start: 12-25-2014 Comprehensive metabolic panel [facility] Work Phone: Start: 12-25-2014 Lipid panel [facility] Work Phone: Comment on above: send copy Emily Start: 08-18-2014 End: 08-18-2014 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[facility] Work Phone: Start: 08-18-2014 End: 08-18-2014 Follow Up Appt 6 months Follow Up Appt 6 months [facility] Work Phone: Start: 08-18-2014 End: 08-18-2014 Follow Up Appt Other Follow Up Appt Other [facility] Work Phone: Start: 07-20-2014 Procedure Education [facility] Work Phone: Start: 07-20-2014 Provider Instructions for Treatment [facility] Work Phone: Start: 02-13-2014 End: 02-13-2014 Follow Up Appt 6 months Follow Up Appt 6 months [facility] Work Phone: Start: 02-13-2014 End: 02-13-2014 MMM MMM [facility] Work Phone: Start: 12-26-2013 Patient Education [facility] Work Phone: Start: 12-08-2013 Patient Education [facility] Work Phone: Start: 11-11-2013 End: 11-11-2013 24 hour holter monitor 24 hour holter monitor [facility] Work Phone: Start: 11-11-2013 End: 08-05-2014 Electrocardiogram, complete EKG (In office) [facility] Work Phone: Start: 09-29-2013 End: 09-29-2013 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[facility] Work Phone: Start: 09-29-2013 End: 09-29-2013 Follow Up Appt 3 months Follow Up Appt 3 months [facility] Work Phone: Start: 09-29-2013 End: 09-29-2013 Follow Up BP Check Follow Up BP Check [facility] Work Phone: Start: 08-01-2013 End: 08-01-2013 *BMP *BMP [facility] Work Phone: Start: 08-01-2013 End: 08-01-2013 BNP *Brain Natriuretic Peptide BNP [facility] Work Phone: Start: 08-01-2013 End: 08-01-2013 Ct orbit/ear/fossa w/o dye CT Head [facility] Work Phone: Start: 08-01-2013 End: 08-01-2013 Echocardiography Echocardiogram (complete) [facility] Work Phone: Start: 08-01-2013 End: 08-01-2013 Follow Up Appt 2 months Follow Up Appt 2 months [facility] Work Phone: Start: 08-01-2013 End: 08-01-2013 MMM MMM [facility] Work Phone: Start: 07-04-2013 Hemoglobin A1c/Hemoglobin.total mass fraction (Bld) HgA1C , Office (40093) [facility] Work Phone: Start: 07-04-2013 Hemoglobin glycosylated a1c [facility] Work Phone: Start: 02-26-2013 Hemoglobin A1c/Hemoglobin.total mass fraction (Bld) HgA1C , Office (76576) [facility] Work Phone: Start: 02-26-2013 Hemoglobin glycosylated a1c [facility] Work Phone: Start: 09-27-2012 Provider Instructions for Treatment [facility] Work Phone: Start: 07-05-2012 Iaad ia clostridium difficile toxin [facility] Work Phone: Start: 07-01-2012 Patient Education [facility] Work Phone: Start: 06-28-2012 Patient Education [facility] Work Phone: Start: 06-27-2012 Patient Education [facility] Work Phone: Start: 06-24-2012 Iadna s aureus methicillin resist amp probe tq [facility] Work Phone: Comment on above: BY PCR Start: 06-24-2012 Patient Education [facility] Work Phone: Start: 06-18-2012 Patient Education [facility] Work Phone: Start: 06-17-2012 Provider Instructions for Treatment [facility] Work Phone: Start: 06-12-2012 Provider Instructions for Treatment [facility] Work Phone: Start: 06-11-2012 Provider Instructions for Treatment [facility] Work Phone: Start: 06-10-2012 Provider Instructions for Treatment [facility] Work Phone: Start: 12-26-2011 End: 08-01-2013 Follow Up Appt 6 months Follow Up Appt 6 months [facility] Work Phone: Start: 09-21-2011 Provider Instructions for Treatment [facility] Work Phone: Start: 08-30-2011 Assay of thyroid stimulating hormone tsh [facility] Work Phone: Start: 08-30-2011 Thyrotropin Qn TSH (64434) [facility] Work Phone: Start: 08-30-2011 Comprehensive metabolic panel [facility] Work Phone: Start: 08-30-2011 Lipid panel [facility] Work Phone: Start: 08-30-2011 Gluc bld gluc mntr dev cleared fda spec home use [facility] Work Phone: Start: 08-30-2011 Glucose mass conc Blood Glucose , Office (86483) [facility] Work Phone: Start: 08-30-2011 Provider Instructions for Treatment [facility] Work Phone: Start: 06-20-2011 End: 06-20-2011 Follow Up Appt 6 months Follow Up Appt 6 months [facility] Work Phone: Start: 03-03-2011 Assay of prostate specific antigen total [facility] Work Phone: Start: 03-03-2011 Protein mass conc PSA (PROSTATE SPECIFIC ANTIGEN) (V76.44) [facility] Work Phone: Start: 03-03-2011 Blood count manual cell count each [facility] Work Phone: Start: 03-03-2011 Lipid panel [facility] Work Phone: Start: 03-03-2011 Urnls dip stick/tablet reagent auto microscopy [facility] Work Phone: Start: 03-03-2011 Comprehensive metabolic panel [facility] Work Phone: Start: 06-29-2009 Assay of prostate specific antigen total [facility] Work Phone: Start: 06-29-2009 Protein mass conc PSA (PROSTATE SPECIFIC ANTIGEN) (V76.44) [facility] Work Phone: Start: 06-29-2009 Comprehensive metabolic panel [facility] Work Phone: Start: 06-29-2009 Urine albumin quantitative [facility] Work Phone: Start: 06-29-2009 Blood count manual cell count each [facility] Work Phone: Start: 06-29-2009 Glucose tolerance test gtt 3 specimens [facility] Work Phone: Start: 06-29-2009 Hepatic function panel [facility] Work Phone: Start: 06-29-2009 Lipid panel [facility] Work Phone: Start: 02-25-2008 Glucose tolerance test gtt 3 specimens [facility] Work Phone: Start: 02-25-2008 Assay of thyroid stimulating hormone tsh [facility] Work Phone: Start: 02-25-2008 Thyrotropin Qn TSH (86941) [facility] Work Phone: Start: 02-25-2008 Assay of prostate specific antigen total [facility] Work Phone: Start: 02-25-2008 Protein mass conc PSA (PROSTATE SPECIFIC ANTIGEN) (V76.44) [facility] Work Phone: Start: 02-25-2008 Blood count manual cell count each [facility] Work Phone: Start: 02-25-2008 Hepatic function panel [facility] Work Phone: Start: 02-25-2008 Lipid panel [facility] Work Phone: Start: 03-15-2007 Glucose tolerance test gtt 3 specimens [facility] Work Phone: Start: 03-15-2007 Hepatic function panel [facility] Work Phone: Start: 03-15-2007 Lipid panel [facility] Work Phone: Start: 10-09-2006 Comprehensive metabolic panel [facility] Work Phone: Start: 10-09-2006 Hepatic function panel [facility] Work Phone: Start: 10-09-2006 Lipid panel [facility] Work Phone: Start: 06-25-2006 Provider Instructions for Treatment [facility] Work Phone: Start: 06-25-2006 Blood count complete auto&auto difrntl wbc [facility] Work Phone: Start: 06-25-2006 Assay of haptoglobin quantitative [facility] Work Phone: Start: 06-25-2006 Blood count reticulocyte automated [facility] Work Phone: Start: 06-25-2006 Lactate dehydrogenase ldh [facility] Work Phone: Start: 05-31-2006 Assay of prostate specific antigen total [facility] Work Phone: Start: 05-31-2006 Protein mass conc PSA (PROSTATE SPECIFIC ANTIGEN) (11794) [facility] Work Phone: Start: 05-31-2006 Cobalamin (Vitamin B12) mass conc VITAMIN B-12 (CYANOCOBALAMIN) (78755) [facility] Work Phone: Start: 05-31-2006 Cyanocobalamin vitamin b-12 [facility] Work Phone: Start: 05-31-2006 Assay of folic acid serum [facility] Work Phone: Start: 05-31-2006 Assay of ferritin [facility] Work Phone: Start: 05-31-2006 Ferritin [Mass/Vol] FERRITIN (84089) [facility] Work Phone: Start: 05-31-2006 Assay of haptoglobin quantitative [facility] Work Phone: Start: 05-31-2006 Assay of iron [facility] Work Phone: Start: 05-31-2006 Iron mass conc IRON (55915) [facility] Work Phone: Start: 05-31-2006 Blood count reticulocyte automated [facility] Work Phone: Start: 05-31-2006 Iron binding capacity [facility] Work Phone: Start: 05-31-2006 Lactate dehydrogenase ldh [facility] Work Phone: Start: 05-31-2006 Lipid panel [facility] Work Phone: Start: 05-31-2006 Hepatic function panel [facility] Work Phone: Start: 05-31-2006 Blood count manual cell count each [facility] Work Phone: Start: 05-31-2006 Urine albumin quantitative [facility] Work Phone: Start: 05-31-2006 Urnls dip stick/tablet rgnt auto w/o microscopy [facility] Work Phone: Start: 05-31-2006 Assay of thyroid stimulating hormone tsh [facility] Work Phone: Start: 05-31-2006 Thyrotropin Qn TSH (34038) [facility] Work Phone: Start: 05-31-2006 Comprehensive metabolic panel [facility] Work Phone: Start: 05-31-2006 Provider Instructions for Treatment [facility] Work Phone: Start: 04-21-2006 Nursing Care Education [facility] Work Phone: [facility] Work Phone: [facility] Work Phone: [facility] Work Phone: [facility] Work Phone: [facility] Work Phone: [facility] Work Phone: [facility] Work Phone: [facility] Work Phone: [facility] Work Phone: [facility] Work Phone[facility] Work Phone: [facility] Work Phone: [facility] Work Phone: [facility] Work Phone: [facility] Work Phone: [facility] Work Phone: [facility] Work Phone: [facility] Work Phone: [facility] Work Phone[facility] Work Phone[facility] Work Phone[facility] Work Phone: [facility] Work Phone[facility] Work Phone[facility] Work Phone: [facility] Work Phone: [facility] Work Phone[facility] Work Phone: [facility] Work Phone[facility] Work Phone: [facility] Work Phone: [facility] Work Phone: [facility] Work Phone: [facility] Work Phone: [facility] Work Phone: [facility] Work Phone: [facility] Work Phone: [facility] Work Phone: [facility] Work Phone: [facility] Work Phone: [facility] Work Phone: [facility] Work Phone: [facility] Work Phone: [facility] Work Phone: [facility] Work Phone: Cellulitis : IV [facility] Work Phone: [facility] Work Phone: [facility] Work Phone: [facility] Work Phone: [facility] Work Phone: [facility]; [facility] Work Phone: [facility]; [facility] Work Phone: Immunizations Immunization Date Immunization Notes Care Provider Fa cili 08-27-2023 tetanus toxoid, reduced diphtheria toxoid, and acellular pertussis vaccine, adsorbed Dr. Laura Rodriguez DO Work Phone: [facility] 06-11-2006 influenza, seasonal, injectable Laura Rodriguez [facility] Work Phone: Payers Date Payer Category Payer Unknown [id number] 2024 Unknown [id number] 2024 Unknown [id number] 2023 Self-pay [id number] 2023 Unknown [id number] 2005 Private Health Insurance [id number] 2004 Medicare [id number] Unknown Unknown [id number] 2.16.8 [id number] Unknown [id number] 2.16.8 [id number] Unknown [id number] 2.16.8 40.1.676039.3.579.2.462 Unknown [id number] 2.16.8 40.1.164837.3.579.2.462 Unknown [id number] 2.16.8 40.1.796623.3.579.2.462 Unknown [id number] 2.16.8 40.1.089941.3.579.2.462 Unknown [id number] 2.16.8 40.1.424201.3.579.2.462 Unknown [id number] 2.16.8 40.1.013945.3.579.2.462 Unknown [id number] 2.16.8 40.1.870568.3.579.2.462 Unknown [id number] 2.16.8 40.1.992970.3.579.2.462 Unknown [id number] 2.16.8 40.1.512451.3.579.2.462 Unknown [id number] 2.16.8 40.1.073749.3.579.2.462 Unknown [id number] 2.16.8 40.1.865343.3.579.2.462 Unknown [id number] 2.16.8 40.1.870968.3.579.2.462 Unknown [id number] 2.16.8 40.1.157237.3.579.2.462 Unknown [id number] 2.16.8 40.1.451633.3.579.2.462 Unknown [id number] 2.16.8 40.1.802614.3.579.2.462 Unknown [id number] 2.16.8 40.1.593539.3.579.2.462 Unknown [id number] 2.16.8 40.1.161732.3.579.2.462 Unknown [id number] 2.16.8 40.1.345088.3.579.2.462 Unknown [id number] 2.16.8 40.1.445084.3.579.2.462 Unknown [id number] 2.16.8 40.1.869231.3.579.2.462 Unknown [id number] 2.16.8 40.1.727440.3.579.2.462 Unknown [id number] 2.16.8 40.1.072409.3.579.2.462 Unknown [id number] 2.16.8 40.1.087002.3.579.2.462 Social History Date Type Detail Facility Caffeine Use Former smoker [facility] Work Phone: Comment on above: 1 serving 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 [facility] Work Phone: Never smoker. [facility] Work Phone: Start: 06-18-2023 Tobacco smoking stat [facility] Unknown if ever smoked [facility] Start: 1940 Sex Assigned At Male [facility] Start: 10[facility]25[facility] Medical Equipment Procedure Code Equipment Code Equipment Origin al Text Equipment Identifier Dates ([id number]) Intracardiac pacemaker [id number] 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, resolved February 19, 2025 10:46am [facility] Work Phone: 1(728) 245-479007-24-2025 Evaluation note* Diagnosis Onset Date Resolution Status Admit Date Sick sinus syndrome acute February 19, 2025 10:46am Chronic diastolic (congestiv e) heart failure chronic February 19, 2025 10:46am Essential (primary) hypertension chr onic February 19, 2025 10:46am 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 February 19, 2025 10:46am Persistent atrial fibrillation chron ic February 19, 2025 10:46am Pure hypercholesterolemia chronic February 19, 2025 10:46am 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, resolved February 19, 2025 10:46am Sick sinus syndrome acute Augus t 2024 11:29am Chronic diastolic (congestiv e) heart failure chronic March 25 11:29am Essential (primary) hypertension chr onic March 25, 2025 11:29am 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 Augu st 2024 11:29am Persistent atrial fibrillation chron ic March 25, 2025 11:29am Pure hypercholesterolemia chronic March 25, 2025 11:29am 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, resolved March 25 11:29am [facility] Work Phone: [phone] Evaluation note* Diagnosis Onset Date Resolution Status Admit Date Sick sinus syndrome acute [id number] 2:14pm Chronic diastolic (congestiv e) heart failure chronic September 19, 2 025 2:14pm Essential (primary) hypertension chronic September 19, 2 025 2:14pm 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 Febr [id number] 2:14pm Persistent atrial fibrillation chron ic September 19, 2024 2:14pm Pure hypercholesterolemia chronic September 19, 2024 2:14pm 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, resolved September 19, 2 025 2:14pm [facility] Work Phone: Evaluation note* Diagnosis Onset Date Resolution Status Sick sinus syndrome acute History of placement of leadless cardiac pacemaker chronic Persistent atrial fibrillation chronic 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 Persistent atrial fibrillation chronic 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, resolved [facility] Work Phone: Evaluation noteNo assessment information available [facility] Work Phone: Evaluation note* Diagnosis Onset Date Resolution Status Admit Date Sick sinus syndrome acute February 19, 2025 10:46am Chronic diastolic (congestiv e) heart failure chronic February 19, 2025 10:46am Essential (primary) hypertension chr onic February 19, 2025 10:46am 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 February 19, 2025 10:46am Persistent atrial fibrillation chron ic February 19, 2025 10:46am Pure hypercholesterolemia chronic February 19, 2025 10:46am 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, resolved February 19, 2025 10:46am [facility] Work Phone: Instructions* Name Dates Details cardiovascular counseling Indication:Coronary artery disease Start:15-Jul-2020 Instruction Type:Provider Instructions for Treatment How to Access Health Informa tion Online using Patient Portal and [facility] Indication:Non-smoker Start:15-Jul-2020 Instruction Type:Patient Education Patient Instructions Indication:Non-smoker Start:15-Jul-2020 Instruction Type:Provider Instructions for Treatment How to access health informa tion online Indication:Non-smoker Start:01-Jul-2020 Instruction Type:Patient Education How to access health informa tion online - Detail Indication:Non-smoker Start:01-Jul-2020 Instruction Type:Patient Education Patient Instructions Indication:Non-smoker Start:01-Jul-2020 Instruction Type:Provider Instructions for Treatment How to access health informa tion online Indication:Non-smoker Start:04-Sep-2019 Instruction Type:Patient Education How to access health informa tion online - Detail Indication:Non-smoker Start:04-Sep-2019 Instruction Type:Patient Education Patient Instructions Indication:Non-smoker Start:04-Sep-2019 Instruction Type:Provider Instructions for Treatment How to access health informa tion online Indication:BMI 27.0-27.9,adult Start:29-Nov-2017 Instruction Type:Patient Education How to access health informa tion online - Detail Indication:BMI 27.0-27.9,adult Start:29-Nov-2017 Instruction Type:Patient Education Patient Instructions Indication:BMI 27.0-27.9,adult Start:29-Nov-2017 Instruction Type:Provider Instructions for Treatment How to access health informa tion online Indication:Diabetes mellitus type II, controlled, with no complications (Renamed from Controlled type 2 diabetes mellitus without complication) Start:29-Nov-2017 Instruction Type:Patient Education Patient Instructions Indication:Diabetes mellitus type II, controlled, with no complications (Renamed from Controlled type 2 diabetes mellitus without complication) Start:29-Nov-2017 Instruction Type:Provider Instructions for Treatment cardiovascular counseling Indication:Coronary artery disease Start:11-Sep-2017 Instruction Type:Provider Instructions for Treatment How to access health informa tion online Indication:Non-smoker Start:11-Sep-2017 Instruction Type:Patient Education How to access health informa tion online - Detail Indication:Non-smoker Start:11-Sep-2017 Instruction Type:Patient Education Patient Instructions Indication:Non-smoker Start:11-Sep-2017 Instruction Type:Provider Instructions for Treatment How to access health informa tion online Indication:Non-smoker Start:28-Aug-2017 Instruction Type:Patient Education How to access health informa tion online - Detail Indication:Non-smoker Start:28-Aug-2017 Instruction Type:Patient Education Patient Instructions Indication:Non-smoker Start:28-Aug-2017 Instruction Type:Provider Instructions for Treatment How to access health informa tion online Indication:Diabetes mellitus type II, controlled, with no complications (Renamed from Controlled type 2 diabetes mellitus without complication) Start:25-Jan-2017 Instruction Type:Patient Education How to access health informa tion online - Detail Indication:Diabetes mellitus type II, controlled, with no complications (Renamed from Controlled type 2 diabetes mellitus without complication) Start:25-Jan-2017 Instruction Type:Patient Education Patient Instructions Indication:Diabetes mellitus type II, controlled, with no complications (Renamed from Controlled type 2 diabetes mellitus without complication) Start:25-Jan-2017 Instruction Type:Provider Instructions for Treatment How to access health informa tion online Indication:BMI 26.0-26.9,adult Start:04-Jul-2016 Instruction Type:Patient Education How to access health informa tion online - Detail Indication:BMI 26.0-26.9,adult Start:04-Jul-2016 Instruction Type:Patient Education Patient Instructions Indication:BMI 26.0-26.9,adult Start:04-Jul-2016 Instruction Type:Provider Instructions for Treatment How to access health informa tion online Indication:Diabetes mellitus type II, controlled, with no complications (Renamed from Controlled type 2 diabetes mellitus without complication) Start:22-Dec-2015 Instruction Type:Patient Education How to access health informa tion online - Detail Indication:Diabetes mellitus type II, controlled, with no complications (Renamed from Controlled type 2 diabetes mellitus without complication) Start:22-Dec-2015 Instruction Type:Patient Education Patient Instructions Indication:Diabetes mellitus type II, controlled, with no complications (Renamed from Controlled type 2 diabetes mellitus without complication) Start:22-Dec-2015 Instruction Type:Provider Instructions for Treatment How to access health informa tion online Indication:Other hyperlipidemia Start:28-Sep-2015 Instruction Type:Patient Education How to access health informa tion online - Detail Indication:Other hyperlipidemia Start:28-Sep-2015 Instruction Type:Patient Education Patient Instructions Indication:Other hyperlipidemia Start:28-Sep-2015 Instruction Type:Provider Instructions for Treatment Patient Instructions Indication:Impaired fasting glucose Start:14-May-2015 Instruction Type:Provider Instructions for Treatment Patient Instructions Indication:Impaired fasting glucose Start:25-Dec-2014 Instruction Type:Provider Instructions for Treatment Patient Instructions Indication:Impaired fasting glucose Start:20-Jul-2014 Instruction Type:Provider Instructions for Treatment Patient Instructions Indication:Hypotension Start:26-Dec-2013 Instruction Type:Provider Instructions for Treatment Patient Instructions Indication:Dizziness and giddiness Start:08-Dec-2013 Instruction Type:Provider Instructions for Treatment Patient Instructions Indication:Essential hypertension Start:04-Jul-2013 Instruction Type:Provider Instructions for Treatment Patient Instructions Indication:Infective otitis externa, unspecified laterality Start:06-Jun-2013 Instruction Type:Provider Instructions for Treatment Patient Instructions Indication:Impaired fasting glucose Start:26-Feb-2013 Instruction Type:Provider Instructions for Treatment obesity counseling Indication:BMI 30.0-30.9,adult Start:27-Sep-2012 Instruction Type:Provider Instructions for Treatment Patient Instructions Indication:Impaired fasting glucose Start:27-Sep-2012 Instruction Type:Provider Instructions for Treatment Patient Instructions Indication:Cellulitis and abscess of leg Start:23-Aug-2012 Instruction Type:Provider Instructions for Treatment Patient Instructions Indication:Cellulitis and abscess of leg Start:12-Jul-2012 Instruction Type:Provider Instructions for Treatment Patient Instructions Indication:Cellulitis and abscess of leg Start:05-Jul-2012 Instruction Type:Provider Instructions for Treatment Patient Instructions Indication:Cellulitis and abscess of leg Start:01-Jul-2012 Instruction Type:Provider Instructions for Treatment Patient Instructions Indication:Cellulitis and abscess of leg Start:28-Jun-2012 Instruction Type:Provider Instructions for Treatment Patient Instructions Indication:Cellulitis and abscess of leg Start:27-Jun-2012 Instruction Type:Provider Instructions for Treatment Patient Instructions Indication:Cellulitis and abscess of leg Start:26-Jun-2012 Instruction Type:Provider Instructions for Treatment Patient Instructions Indication:Cellulitis and abscess of leg Start:25-Jun-2012 Instruction Type:Provider Instructions for Treatment Patient Instructions Indication:Cellulitis and abscess of leg Start:24-Jun-2012 Instruction Type:Provider Instructions for Treatment Patient Instructions Indication:Cellulitis and abscess of leg Start:18-Jun-2012 Instruction Type:Provider Instructions for Treatment Patient Instructions Indication:Cellulitis and abscess of leg Start:17-Jun-2012 Instruction Type:Provider Instructions for Treatment [facility] Work Phone: Instructions* Name Dates Details cardiovascular counseling Indication:Coronary artery disease Start:15-Jul-2020 Instruction Type:Provider Instructions for Treatment How to Access Health Informa tion Online using Patient Portal and [employer] Indication:Non-smoker Start:15-Jul-2020 Instruction Type:Patient Education Patient Instructions Indication:Non-smoker Start:15-Jul-2020 Instruction Type:Provider Instructions for Treatment How to access health informa tion online Indication:Non-smoker Start:01-Jul-2020 Instruction Type:Patient Education How to access health informa tion online - Detail Indication:Non-smoker Start:01-Jul-2020 Instruction Type:Patient Education Patient Instructions Indication:Non-smoker Start:01-Jul-2020 Instruction Type:Provider Instructions for Treatment How to access health informa tion online Indication:Non-smoker Start:04-Sep-2019 Instruction Type:Patient Education How to access health informa tion online - Detail Indication:Non-smoker Start:04-Sep-2019 Instruction Type:Patient Education Patient Instructions Indication:Non-smoker Start:04-Sep-2019 Instruction Type:Provider Instructions for Treatment How to access health informa tion online Indication:BMI 27.0-27.9,adult Start:29-Nov-2017 Instruction Type:Patient Education How to access health informa tion online - Detail Indication:BMI 27.0-27.9,adult Start:29-Nov-2017 Instruction Type:Patient Education Patient Instructions Indication:BMI 27.0-27.9,adult Start:29-Nov-2017 Instruction Type:Provider Instructions for Treatment How to access health informa tion online Indication:Diabetes mellitus type II, controlled, with no complications (Renamed from Controlled type 2 diabetes mellitus without complication) Start:29-Nov-2017 Instruction Type:Patient Education Patient Instructions Indication:Diabetes mellitus type II, controlled, with no complications (Renamed from Controlled type 2 diabetes mellitus without complication) Start:29-Nov-2017 Instruction Type:Provider Instructions for Treatment cardiovascular counseling Indication:Coronary artery disease Start:11-Sep-2017 Instruction Type:Provider Instructions for Treatment How to access health informa tion online Indication:Non-smoker Start:11-Sep-2017 Instruction Type:Patient Education How to access health informa tion online - Detail Indication:Non-smoker Start:11-Sep-2017 Instruction Type:Patient Education Patient Instructions Indication:Non-smoker Start:11-Sep-2017 Instruction Type:Provider Instructions for Treatment How to access health informa tion online Indication:Non-smoker Start:28-Aug-2017 Instruction Type:Patient Education How to access health informa tion online - Detail Indication:Non-smoker Start:28-Aug-2017 Instruction Type:Patient Education Patient Instructions Indication:Non-smoker Start:28-Aug-2017 Instruction Type:Provider Instructions for Treatment How to access health informa tion online Indication:Diabetes mellitus type II, controlled, with no complications (Renamed from Controlled type 2 diabetes mellitus without complication) Start:25-Jan-2017 Instruction Type:Patient Education How to access health informa tion online - Detail Indication:Diabetes mellitus type II, controlled, with no complications (Renamed from Controlled type 2 diabetes mellitus without complication) Start:25-Jan-2017 Instruction Type:Patient Education Patient Instructions Indication:Diabetes mellitus type II, controlled, with no complications (Renamed from Controlled type 2 diabetes mellitus without complication) Start:25-Jan-2017 Instruction Type:Provider Instructions for Treatment How to access health informa tion online Indication:BMI 26.0-26.9,adult Start:04-Jul-2016 Instruction Type:Patient Education How to access health informa tion online - Detail Indication:BMI 26.0-26.9,adult Start:04-Jul-2016 Instruction Type:Patient Education Patient Instructions Indication:BMI 26.0-26.9,adult Start:04-Jul-2016 Instruction Type:Provider Instructions for Treatment How to access health informa tion online Indication:Diabetes mellitus type II, controlled, with no complications (Renamed from Controlled type 2 diabetes mellitus without complication) Start:22-Dec-2015 Instruction Type:Patient Education How to access health informa tion online - Detail Indication:Diabetes mellitus type II, controlled, with no complications (Renamed from Controlled type 2 diabetes mellitus without complication) Start:22-Dec-2015 Instruction Type:Patient Education Patient Instructions Indication:Diabetes mellitus type II, controlled, with no complications (Renamed from Controlled type 2 diabetes mellitus without complication) Start:22-Dec-2015 Instruction Type:Provider Instructions for Treatment How to access health informa tion online Indication:Other hyperlipidemia Start:28-Sep-2015 Instruction Type:Patient Education How to access [facility] online - Detail Indication:Other hyperlipidemia Start:28-Sep-2015 Instruction Type:Patient Education Patient Instructions Indication:Other hyperlipidemia Start:28-Sep-2015 Instruction Type:Provider Instructions for Treatment Patient Instructions Indication:Impaired fasting glucose Start:14-May-2015 Instruction Type:Provider Instructions for Treatment Patient Instructions Indication:Impaired fasting glucose Start:25-Dec-2014 Instruction Type:Provider Instructions for Treatment Patient Instructions Indication:Impaired fasting glucose Start:20-Jul-2014 Instruction Type:Provider Instructions for Treatment Patient Instructions Indication:Hypotension Start:26-Dec-2013 Instruction Type:Provider Instructions for Treatment Patient Instructions Indication:Dizziness and giddiness Start:08-Dec-2013 Instruction Type:Provider Instructions for Treatment Patient Instructions Indication:Essential hypertension Start:04-Jul-2013 Instruction Type:Provider Instructions for Treatment Patient Instructions Indication:Infective otitis externa, unspecified laterality Start:06-Jun-2013 Instruction Type:Provider Instructions for Treatment Patient Instructions Indication:Impaired fasting glucose Start:26-Feb-2013 Instruction Type:Provider Instructions for Treatment obesity counseling Indication:BMI 30.0-30.9,adult Start:27-Sep-2012 Instruction Type:Provider Instructions for Treatment Patient Instructions Indication:Impaired fasting glucose Start:27-Sep-2012 Instruction Type:Provider Instructions for Treatment Patient Instructions Indication:Cellulitis and abscess of leg Start:23-Aug-2012 Instruction Type:Provider Instructions for Treatment Patient Instructions Indication:Cellulitis and abscess of leg Start:12-Jul-2012 Instruction Type:Provider Instructions for Treatment Patient Instructions Indication:Cellulitis and abscess of leg Start:05-Jul-2012 Instruction Type:Provider Instructions for Treatment Patient Instructions Indication:Cellulitis and abscess of leg Start:01-Jul-2012 Instruction Type:Provider Instructions for Treatment Patient Instructions Indication:Cellulitis and abscess of leg Start:28-Jun-2012 Instruction Type:Provider Instructions for Treatment Patient Instructions Indication:Cellulitis and abscess of leg Start:27-Jun-2012 Instruction Type:Provider Instructions for Treatment Patient Instructions Indication:Cellulitis and abscess of leg Start:26-Jun-2012 Instruction Type:Provider Instructions for Treatment Patient Instructions Indication:Cellulitis and abscess of leg Start:25-Jun-2012 Instruction Type:Provider Instructions for Treatment Patient Instructions Indication:Cellulitis and abscess of leg Start:24-Jun-2012 Instruction Type:Provider Instructions for Treatment Patient Instructions Indication:Cellulitis and abscess of leg Start:18-Jun-2012 Instruction Type:Provider Instructions for Treatment Patient Instructions Indication:Cellulitis and abscess of leg Start:17-Jun-2012 Instruction Type:Provider Instructions for Treatment [facility] Work Phone: Instructions* Name Dates Details Patient Instructions Indication:Skin lesion Start:13-Jun-2021 Instruction Type:Provider Instructions for Treatment How to Access Health Informa tion Online using Patient Portal and [facility] Indication:Skin lesion Start:13-Jun-2021 Instruction Type:Patient Education cardiovascular counseling Indication:Coronary artery disease Start:15-Jul-2020 Instruction Type:Provider Instructions for Treatment How to Access Health Informa tion Online using Patient Portal and [facility] Indication:Non-smoker Start:15-Jul-2020 Instruction Type:Patient Education Patient Instructions Indication:Non-smoker Start:15-Jul-2020 Instruction Type:Provider Instructions for Treatment How to access health informa tion online Indication:Non-smoker Start:01-Jul-2020 Instruction Type:Patient Education How to access health informa tion online - Detail Indication:Non-smoker Start:01-Jul-2020 Instruction Type:Patient Education Patient Instructions Indication:Non-smoker Start:01-Jul-2020 Instruction Type:Provider Instructions for Treatment How to access health informa tion online Indication:Non-smoker Start:04-Sep-2019 Instruction Type:Patient Education How to access health informa tion online - Detail Indication:Non-smoker Start:04-Sep-2019 Instruction Type:Patient Education Patient Instructions Indication:Non-smoker Start:04-Sep-2019 Instruction Type:Provider Instructions for Treatment How to access health informa tion online Indication:BMI 27.0-27.9,adult Start:29-Nov-2017 Instruction Type:Patient Education How to access health informa tion online - Detail Indication:BMI 27.0-27.9,adult Start:29-Nov-2017 Instruction Type:Patient Education Patient Instructions Indication:BMI 27.0-27.9,adult Start:29-Nov-2017 Instruction Type:Provider Instructions for Treatment How to access health informa tion online Indication:Diabetes mellitus type II, controlled, with no complications (Renamed from Controlled type 2 diabetes mellitus without complication) Start:29-Nov-2017 Instruction Type:Patient Education Patient Instructions Indication:Diabetes mellitus type II, controlled, with no complications (Renamed from Controlled type 2 diabetes mellitus without complication) Start:29-Nov-2017 Instruction Type:Provider Instructions for Treatment cardiovascular counseling Indication:Coronary artery disease Start:11-Sep-2017 Instruction Type:Provider Instructions for Treatment How to access health informa tion online Indication:Non-smoker Start:11-Sep-2017 Instruction Type:Patient Education How to access health informa tion online - Detail Indication:Non-smoker Start:11-Sep-2017 Instruction Type:Patient Education Patient Instructions Indication:Non-smoker Start:11-Sep-2017 Instruction Type:Provider Instructions for Treatment How to access health informa tion online Indication:Non-smoker Start:28-Aug-2017 Instruction Type:Patient Education How to access health informa tion online - Detail Indication:Non-smoker Start:28-Aug-2017 Instruction Type:Patient Education Patient Instructions Indication:Non-smoker Start:28-Aug-2017 Instruction Type:Provider Instructions for Treatment How to access health informa tion online Indication:Diabetes mellitus type II, controlled, with no complications (Renamed from Controlled type 2 diabetes mellitus without complication) Start:25-Jan-2017 Instruction Type:Patient Education How to access health informa tion online - Detail Indication:Diabetes mellitus type II, controlled, with no complications (Renamed from Controlled type 2 diabetes mellitus without complication) Start:25-Jan-2017 Instruction Type:Patient Education Patient Instructions Indication:Diabetes mellitus type II, controlled, with no complications (Renamed from Controlled type 2 diabetes mellitus without complication) Start:25-Jan-2017 Instruction Type:Provider Instructions for Treatment How to access health informa tion online Indication:BMI 26.0-26.9,adult Start:04-Jul-2016 Instruction Type:Patient Education How to access health informa tion online - Detail Indication:BMI 26.0-26.9,adult Start:04-Jul-2016 Instruction Type:Patient Education Patient Instructions Indication:BMI 26.0-26.9,adult Start:04-Jul-2016 Instruction Type:Provider Instructions for Treatment How to access health informa tion online Indication:Diabetes mellitus type II, controlled, with no complications (Renamed from Controlled type 2 diabetes mellitus without complication) Start:22-Dec-2015 Instruction Type:Patient Education How to access health informa tion online - Detail Indication:Diabetes mellitus type II, controlled, with no complications (Renamed from Controlled type 2 diabetes mellitus without complication) Start:22-Dec-2015 Instruction Type:Patient Education Patient Instructions Indication:Diabetes mellitus type II, controlled, with no complications (Renamed from Controlled type 2 diabetes mellitus without complication) Start:22-Dec-2015 Instruction Type:Provider Instructions for Treatment How to access health informa tion online Indication:Other hyperlipidemia Start:28-Sep-2015 Instruction Type:Patient Education How to access health informa tion online - Detail Indication:Other hyperlipidemia Start:28-Sep-2015 Instruction Type:Patient Education Patient Instructions Indication:Other hyperlipidemia Start:28-Sep-2015 Instruction Type:Provider Instructions for Treatment Patient Instructions Indication:Impaired fasting glucose Start:14-May-2015 Instruction Type:Provider Instructions for Treatment Patient Instructions Indication:Impaired fasting glucose Start:25-Dec-2014 Instruction Type:Provider Instructions for Treatment Patient Instructions Indication:Impaired fasting glucose Start:20-Jul-2014 Instruction Type:Provider Instructions for Treatment Patient Instructions Indication:Hypotension Start:26-Dec-2013 Instruction Type:Provider Instructions for Treatment Patient Instructions Indication:Dizziness and giddiness Start:08-Dec-2013 Instruction Type:Provider Instructions for Treatment Patient Instructions Indication:Essential hypertension Start:04-Jul-2013 Instruction Type:Provider Instructions for Treatment Patient Instructions Indication:Infective otitis externa, unspecified laterality Start:06-Jun-2013 Instruction Type:Provider Instructions for Treatment Patient Instructions Indication:Impaired fasting glucose Start:26-Feb-2013 Instruction Type:Provider Instructions for Treatment obesity counseling Indication:BMI 30.0-30.9,adult Start:27-Sep-2012 Instruction Type:Provider Instructions for Treatment Patient Instructions Indication:Impaired fasting glucose Start:27-Sep-2012 Instruction Type:Provider Instructions for Treatment Patient Instructions Indication:Cellulitis and abscess of leg Start:23-Aug-2012 Instruction Type:Provider Instructions for Treatment Patient Instructions Indication:Cellulitis and abscess of leg Start:12-Jul-2012 Instruction Type:Provider Instructions for Treatment Patient Instructions Indication:Cellulitis and abscess of leg Start:05-Jul-2012 Instruction Type:Provider Instructions for Treatment Patient Instructions Indication:Cellulitis and abscess of leg Start:01-Jul-2012 Instruction Type:Provider Instructions for Treatment Patient Instructions Indication:Cellulitis and abscess of leg Start:28-Jun-2012 Instruction Type:Provider Instructions for Treatment Patient Instructions Indication:Cellulitis and abscess of leg Start:27-Jun-2012 Instruction Type:Provider Instructions for Treatment Patient Instructions Indication:Cellulitis and abscess of leg Start:26-Jun-2012 Instruction Type:Provider Instructions for Treatment Patient Instructions Indication:Cellulitis and abscess of leg Start:25-Jun-2012 Instruction Type:Provider Instructions for Treatment Patient Instructions Indication:Cellulitis and abscess of leg Start:24-Jun-2012 Instruction Type:Provider Instructions for Treatment Patient Instructions Indication:Cellulitis and abscess of leg Start:18-Jun-2012 Instruction Type:Provider Instructions for Treatment Patient Instructions Indication:Cellulitis and abscess of leg Start:17-Jun-2012 Instruction Type:Provider Instructions for Treatment [facility]; [facility] Work Phone: Instructions* Name Dates Details How to access health informa tion online Indication:Non-smoker Start:04-Sep-2019 Instruction Type:Patient Education How to access health informa tion online - Detail Indication:Non-smoker Start:04-Sep-2019 Instruction Type:Patient Education Patient Instructions Indication:Non-smoker Start:04-Sep-2019 Instruction Type:Provider Instructions for Treatment How to access health informa tion online Indication:BMI 27.0-27.9,adult Start:29-Nov-2017 Instruction Type:Patient Education How to access health informa tion online - Detail Indication:BMI 27.0-27.9,adult Start:29-Nov-2017 Instruction Type:Patient Education Patient Instructions Indication:BMI 27.0-27.9,adult Start:29-Nov-2017 Instruction Type:Provider Instructions for Treatment How to access health informa tion online Indication:Diabetes mellitus type II, controlled, with no complications (Renamed from Controlled type 2 diabetes mellitus without complication) Start:29-Nov-2017 Instruction Type:Patient Education Patient Instructions Indication:Diabetes mellitus type II, controlled, with no complications (Renamed from Controlled type 2 diabetes mellitus without complication) Start:29-Nov-2017 Instruction Type:Provider Instructions for Treatment cardiovascular counseling Indication:Coronary artery disease Start:11-Sep-2017 Instruction Type:Provider Instructions for Treatment How to access health informa tion online Indication:Non-smoker Start:11-Sep-2017 Instruction Type:Patient Education How to access health informa tion online - Detail Indication:Non-smoker Start:11-Sep-2017 Instruction Type:Patient Education Patient Instructions Indication:Non-smoker Start:11-Sep-2017 Instruction Type:Provider Instructions for Treatment How to access health informa tion online Indication:Non-smoker Start:28-Aug-2017 Instruction Type:Patient Education How to access health informa tion online - Detail Indication:Non-smoker Start:28-Aug-2017 Instruction Type:Patient Education Patient Instructions Indication:Non-smoker Start:28-Aug-2017 Instruction Type:Provider Instructions for Treatment How to access health informa tion online Indication:Diabetes mellitus type II, controlled, with no complications (Renamed from Controlled type 2 diabetes mellitus without complication) Start:25-Jan-2017 Instruction Type:Patient Education How to access health informa tion online - Detail Indication:Diabetes mellitus type II, controlled, with no complications (Renamed from Controlled type 2 diabetes mellitus without complication) Start:25-Jan-2017 Instruction Type:Patient Education Patient Instructions Indication:Diabetes mellitus type II, controlled, with no complications (Renamed from Controlled type 2 diabetes mellitus without complication) Start:25-Jan-2017 Instruction Type:Provider Instructions for Treatment How to access health informa tion online Indication:BMI 26.0-26.9,adult Start:04-Jul-2016 Instruction Type:Patient Education How to access health informa tion online - Detail Indication:BMI 26.0-26.9,adult Start:04-Jul-2016 Instruction Type:Patient Education Patient Instructions Indication:BMI 26.0-26.9,adult Start:04-Jul-2016 Instruction Type:Provider Instructions for Treatment How to access health informa tion online Indication:Diabetes mellitus type II, controlled, with no complications (Renamed from Controlled type 2 diabetes mellitus without complication) Start:22-Dec-2015 Instruction Type:Patient Education How to access health informa tion online - Detail Indication:Diabetes mellitus type II, controlled, with no complications (Renamed from Controlled type 2 diabetes mellitus without complication) Start:22-Dec-2015 Instruction Type:Patient Education Patient Instructions Indication:Diabetes mellitus type II, controlled, with no complications (Renamed from Controlled type 2 diabetes mellitus without complication) Start:22-Dec-2015 Instruction Type:Provider Instructions for Treatment How to access health informa tion online Indication:Other hyperlipidemia Start:28-Sep-2015 Instruction Type:Patient Education How to access health informa tion online - Detail Indication:Other hyperlipidemia Start:28-Sep-2015 Instruction Type:Patient Education Patient Instructions Indication:Other hyperlipidemia Start:28-Sep-2015 Instruction Type:Provider Instructions for Treatment Patient Instructions Indication:Impaired fasting glucose Start:14-May-2015 Instruction Type:Provider Instructions for Treatment Patient Instructions Indication:Impaired fasting glucose Start:25-Dec-2014 Instruction Type:Provider Instructions for Treatment Patient Instructions Indication:Impaired fasting glucose Start:20-Jul-2014 Instruction Type:Provider Instructions for Treatment Patient Instructions Indication:Hypotension Start:26-Dec-2013 Instruction Type:Provider Instructions for Treatment Patient Instructions Indication:Dizziness and giddiness Start:08-Dec-2013 Instruction Type:Provider Instructions for Treatment Patient Instructions Indication:Essential hypertension Start:04-Jul-2013 Instruction Type:Provider Instructions for Treatment Patient Instructions Indication:Infective otitis externa, unspecified laterality Start:06-Jun-2013 Instruction Type:Provider Instructions for Treatment Patient Instructions Indication:Impaired fasting glucose Start:26-Feb-2013 Instruction Type:Provider Instructions for Treatment obesity counseling Indication:BMI 30.0-30.9,adult Start:27-Sep-2012 Instruction Type:Provider Instructions for Treatment Patient Instructions Indication:Impaired fasting glucose Start:27-Sep-2012 Instruction Type:Provider Instructions for Treatment Patient Instructions Indication:Cellulitis and abscess of leg Start:23-Aug-2012 Instruction Type:Provider Instructions for Treatment Patient Instructions Indication:Cellulitis and abscess of leg Start:12-Jul-2012 Instruction Type:Provider Instructions for Treatment Patient Instructions Indication:Cellulitis and abscess of leg Start:05-Jul-2012 Instruction Type:Provider Instructions for Treatment Patient Instructions Indication:Cellulitis and abscess of leg Start:01-Jul-2012 Instruction Type:Provider Instructions for Treatment Patient Instructions Indication:Cellulitis and abscess of leg Start:28-Jun-2012 Instruction Type:Provider Instructions for Treatment Patient Instructions Indication:Cellulitis and abscess of leg Start:27-Jun-2012 Instruction Type:Provider Instructions for Treatment Patient Instructions Indication:Cellulitis and abscess of leg Start:26-Jun-2012 Instruction Type:Provider Instructions for Treatment Patient Instructions Indication:Cellulitis and abscess of leg Start:25-Jun-2012 Instruction Type:Provider Instructions for Treatment Patient Instructions Indication:Cellulitis and abscess of leg Start:24-Jun-2012 Instruction Type:Provider Instructions for Treatment Patient Instructions Indication:Cellulitis and abscess of leg Start:18-Jun-2012 Instruction Type:Provider Instructions for Treatment Patient Instructions Indication:Cellulitis and abscess of leg Start:17-Jun-2012 Instruction Type:Provider Instructions for Treatment [facility] Work Phone: Instructions* Name Dates Details Patient Instructions Indication:Skin lesion Start:13-Jun-2021 Instruction Type:Provider Instructions for Treatment How to Access Health Informa tion Online using Patient Portal and [employer] Apps Indication:Skin lesion Start:13-Jun-2021 Instruction Type:Patient Education cardiovascular counseling Indication:Coronary artery disease Start:15-Jul-2020 Instruction Type:Provider Instructions for Treatment How to Access Health Informa tion Online using Patient Portal and [employer] Apps Indication:Non-smoker Start:15-Jul-2020 Instruction Type:Patient Education Patient Instructions Indication:Non-smoker Start:15-Jul-2020 Instruction Type:Provider Instructions for Treatment How to access health informa tion online Indication:Non-smoker Start:01-Jul-2020 Instruction Type:Patient Education How to access health informa tion online - Detail Indication:Non-smoker Start:01-Jul-2020 Instruction Type:Patient Education Patient Instructions Indication:Non-smoker Start:01-Jul-2020 Instruction Type:Provider Instructions for Treatment How to access health informa tion online Indication:Non-smoker Start:04-Sep-2019 Instruction Type:Patient Education How to access health informa tion online - Detail Indication:Non-smoker Start:04-Sep-2019 Instruction Type:Patient Education Patient Instructions Indication:Non-smoker Start:04-Sep-2019 Instruction Type:Provider Instructions for Treatment How to access health informa tion online Indication:BMI 27.0-27.9,adult Start:29-Nov-2017 Instruction Type:Patient Education How to access health informa tion online - Detail Indication:BMI 27.0-27.9,adult Start:29-Nov-2017 Instruction Type:Patient Education Patient Instructions Indication:BMI 27.0-27.9,adult Start:29-Nov-2017 Instruction Type:Provider Instructions for Treatment How to access health informa tion online Indication:Diabetes mellitus type II, controlled, with no complications (Renamed from Controlled type 2 diabetes mellitus without complication) Start:29-Nov-2017 Instruction Type:Patient Education Patient Instructions Indication:Diabetes mellitus type II, controlled, with no complications (Renamed from Controlled type 2 diabetes mellitus without complication) Start:29-Nov-2017 Instruction Type:Provider Instructions for Treatment cardiovascular counseling Indication:Coronary artery disease Start:11-Sep-2017 Instruction Type:Provider Instructions for Treatment How to access health informa tion online Indication:Non-smoker Start:11-Sep-2017 Instruction Type:Patient Education How to access health informa tion online - Detail Indication:Non-smoker Start:11-Sep-2017 Instruction Type:Patient Education Patient Instructions Indication:Non-smoker Start:11-Sep-2017 Instruction Type:Provider Instructions for Treatment How to access health informa tion online Indication:Non-smoker Start:28-Aug-2017 Instruction Type:Patient Education How to access health informa tion online - Detail Indication:Non-smoker Start:28-Aug-2017 Instruction Type:Patient Education Patient Instructions Indication:Non-smoker Start:28-Aug-2017 Instruction Type:Provider Instructions for Treatment How to access health informa tion online Indication:Diabetes mellitus type II, controlled, with no complications (Renamed from Controlled type 2 diabetes mellitus without complication) Start:25-Jan-2017 Instruction Type:Patient Education How to access health informa tion online - Detail Indication:Diabetes mellitus type II, controlled, with no complications (Renamed from Controlled type 2 diabetes mellitus without complication) Start:25-Jan-2017 Instruction Type:Patient Education Patient Instructions Indication:Diabetes mellitus type II, controlled, with no complications (Renamed from Controlled type 2 diabetes mellitus without complication) Start:25-Jan-2017 Instruction Type:Provider Instructions for Treatment How to access health informa tion online Indication:BMI 26.0-26.9,adult Start:04-Jul-2016 Instruction Type:Patient Education How to access health informa tion online - Detail Indication:BMI 26.0-26.9,adult Start:04-Jul-2016 Instruction Type:Patient Education Patient Instructions Indication:BMI 26.0-26.9,adult Start:04-Jul-2016 Instruction Type:Provider Instructions for Treatment How to access health informa tion online Indication:Diabetes mellitus type II, controlled, with no complications (Renamed from Controlled type 2 diabetes mellitus without complication) Start:22-Dec-2015 Instruction Type:Patient Education How to access health informa tion online - Detail Indication:Diabetes mellitus type II, controlled, with no complications (Renamed from Controlled type 2 diabetes mellitus without complication) Start:22-Dec-2015 Instruction Type:Patient Education Patient Instructions Indication:Diabetes mellitus type II, controlled, with no complications (Renamed from Controlled type 2 diabetes mellitus without complication) Start:22-Dec-2015 Instruction Type:Provider Instructions for Treatment How to access health informa tion online Indication:Other hyperlipidemia Start:28-Sep-2015 Instruction Type:Patient Education How to access health informa tion online - Detail Indication:Other hyperlipidemia Start:28-Sep-2015 Instruction Type:Patient Education Patient Instructions Indication:Other hyperlipidemia Start:28-Sep-2015 Instruction Type:Provider Instructions for Treatment Patient Instructions Indication:Impaired fasting glucose Start:14-May-2015 Instruction Type:Provider Instructions for Treatment Patient Instructions Indication:Impaired fasting glucose Start:25-Dec-2014 Instruction Type:Provider Instructions for Treatment Patient Instructions Indication:Impaired fasting glucose Start:20-Jul-2014 Instruction Type:Provider Instructions for Treatment Patient Instructions Indication:Hypotension Start:26-Dec-2013 Instruction Type:Provider Instructions for Treatment Patient Instructions Indication:Dizziness and giddiness Start:08-Dec-2013 Instruction Type:Provider Instructions for Treatment Patient Instructions Indication:Essential hypertension Start:04-Jul-2013 Instruction Type:Provider Instructions for Treatment Patient Instructions Indication:Infective otitis externa, unspecified laterality Start:06-Jun-2013 Instruction Type:Provider Instructions for Treatment Patient Instructions Indication:Impaired fasting glucose Start:26-Feb-2013 Instruction Type:Provider Instructions for Treatment obesity counseling Indication:BMI 30.0-30.9,adult Start:27-Sep-2012 Instruction Type:Provider Instructions for Treatment Patient Instructions Indication:Impaired fasting glucose Start:27-Sep-2012 Instruction Type:Provider Instructions for Treatment Patient Instructions Indication:Cellulitis and abscess of leg Start:23-Aug-2012 Instruction Type:Provider Instructions for Treatment Patient Instructions Indication:Cellulitis and abscess of leg Start:12-Jul-2012 Instruction Type:Provider Instructions for Treatment Patient Instructions Indication:Cellulitis and abscess of leg Start:05-Jul-2012 Instruction Type:Provider Instructions for Treatment Patient Instructions Indication:Cellulitis and abscess of leg Start:01-Jul-2012 Instruction Type:Provider Instructions for Treatment Patient Instructions Indication:Cellulitis and abscess of leg Start:28-Jun-2012 Instruction Type:Provider Instructions for Treatment Patient Instructions Indication:Cellulitis and abscess of leg Start:27-Jun-2012 Instruction Type:Provider Instructions for Treatment Patient Instructions Indication:Cellulitis and abscess of leg Start:26-Jun-2012 Instruction Type:Provider Instructions for Treatment Patient Instructions Indication:Cellulitis and abscess of leg Start:25-Jun-2012 Instruction Type:Provider Instructions for Treatment Patient Instructions Indication:Cellulitis and abscess of leg Start:24-Jun-2012 Instruction Type:Provider Instructions for Treatment Patient Instructions Indication:Cellulitis and abscess of leg Start:18-Jun-2012 Instruction Type:Provider Instructions for Treatment Patient Instructions Indication:Cellulitis and abscess of leg Start:17-Jun-2012 Instruction Type:Provider Instructions for Treatment [facility]; [facility] Work Phone: Instructions* Name Dates Details Patient Instructions Indication:Skin lesion Start:13-Jun-2021 Instruction Type:Provider Instructions for Treatment How to Access Health Informa tion Online using Patient Portal and [employer] Apps Indication:Skin lesion Start:13-Jun-2021 Instruction Type:Patient Education cardiovascular counseling Indication:Coronary artery disease Start:15-Jul-2020 Instruction Type:Provider Instructions for Treatment How to Access Health Informa tion Online using Patient Portal and [employer] Apps Indication:Non-smoker Start:15-Jul-2020 Instruction Type:Patient Education Patient Instructions Indication:Non-smoker Start:15-Jul-2020 Instruction Type:Provider Instructions for Treatment How to access health informa tion online Indication:Non-smoker Start:01-Jul-2020 Instruction Type:Patient Education How to access health informa tion online - Detail Indication:Non-smoker Start:01-Jul-2020 Instruction Type:Patient Education Patient Instructions Indication:Non-smoker Start:01-Jul-2020 Instruction Type:Provider Instructions for Treatment How to access health informa tion online Indication:Non-smoker Start:04-Sep-2019 Instruction Type:Patient Education How to access health informa tion online - Detail Indication:Non-smoker Start:04-Sep-2019 Instruction Type:Patient Education Patient Instructions Indication:Non-smoker Start:04-Sep-2019 Instruction Type:Provider Instructions for Treatment How to access health informa tion online Indication:BMI 27.0-27.9,adult Start:29-Nov-2017 Instruction Type:Patient Education How to access health informa tion online - Detail Indication:BMI 27.0-27.9,adult Start:29-Nov-2017 Instruction Type:Patient Education Patient Instructions Indication:BMI 27.0-27.9,adult Start:29-Nov-2017 Instruction Type:Provider Instructions for Treatment How to access health informa tion online Indication:Diabetes mellitus type II, controlled, with no complications (Renamed from Controlled type 2 diabetes mellitus without complication) Start:29-Nov-2017 Instruction Type:Patient Education Patient Instructions Indication:Diabetes mellitus type II, controlled, with no complications (Renamed from Controlled type 2 diabetes mellitus without complication) Start:29-Nov-2017 Instruction Type:Provider Instructions for Treatment cardiovascular counseling Indication:Coronary artery disease Start:11-Sep-2017 Instruction Type:Provider Instructions for Treatment How to access health informa tion online Indication:Non-smoker Start:11-Sep-2017 Instruction Type:Patient Education How to access health informa tion online - Detail Indication:Non-smoker Start:11-Sep-2017 Instruction Type:Patient Education Patient Instructions Indication:Non-smoker Start:11-Sep-2017 Instruction Type:Provider Instructions for Treatment How to access health informa tion online Indication:Non-smoker Start:28-Aug-2017 Instruction Type:Patient Education How to access health informa tion online - Detail Indication:Non-smoker Start:28-Aug-2017 Instruction Type:Patient Education Patient Instructions Indication:Non-smoker Start:28-Aug-2017 Instruction Type:Provider Instructions for Treatment How to access health informa tion online Indication:Diabetes mellitus type II, controlled, with no complications (Renamed from Controlled type 2 diabetes mellitus without complication) Start:25-Jan-2017 Instruction Type:Patient Education How to access health informa tion online - Detail Indication:Diabetes mellitus type II, controlled, with no complications (Renamed from Controlled type 2 diabetes mellitus without complication) Start:25-Jan-2017 Instruction Type:Patient Education Patient Instructions Indication:Diabetes mellitus type II, controlled, with no complications (Renamed from Controlled type 2 diabetes mellitus without complication) Start:25-Jan-2017 Instruction Type:Provider Instructions for Treatment How to access health informa tion online Indication:BMI 26.0-26.9,adult Start:04-Jul-2016 Instruction Type:Patient Education How to access health informa tion online - Detail Indication:BMI 26.0-26.9,adult Start:04-Jul-2016 Instruction Type:Patient Education Patient Instructions Indication:BMI 26.0-26.9,adult Start:04-Jul-2016 Instruction Type:Provider Instructions for Treatment How to access health informa tion online Indication:Diabetes mellitus type II, controlled, with no complications (Renamed from Controlled type 2 diabetes mellitus without complication) Start:22-Dec-2015 Instruction Type:Patient Education How to access health informa tion online - Detail Indication:Diabetes mellitus type II, controlled, with no complications (Renamed from Controlled type 2 diabetes mellitus without complication) Start:22-Dec-2015 Instruction Type:Patient Education Patient Instructions Indication:Diabetes mellitus type II, controlled, with no complications (Renamed from Controlled type 2 diabetes mellitus without complication) Start:22-Dec-2015 Instruction Type:Provider Instructions for Treatment How to access health informa [place] online Indication:Other hyperlipidemia Start:28-Sep-2015 Instruction Type:Patient Education How to access health informa tion online - Detail Indication:Other hyperlipidemia Start:28-Sep-2015 Instruction Type:Patient Education Patient Instructions Indication:Other hyperlipidemia Start:28-Sep-2015 Instruction Type:Provider Instructions for Treatment Patient Instructions Indication:Impaired fasting glucose Start:14-May-2015 Instruction Type:Provider Instructions for Treatment Patient Instructions Indication:Impaired fasting glucose Start:25-Dec-2014 Instruction Type:Provider Instructions for Treatment Patient Instructions Indication:Impaired fasting glucose Start:20-Jul-2014 Instruction Type:Provider Instructions for Treatment Patient Instructions Indication:Hypotension Start:26-Dec-2013 Instruction Type:Provider Instructions for Treatment Patient Instructions Indication:Dizziness and giddiness Start:08-Dec-2013 Instruction Type:Provider Instructions for Treatment Patient Instructions Indication:Essential hypertension Start:04-Jul-2013 Instruction Type:Provider Instructions for Treatment Patient Instructions Indication:Infective otitis externa, unspecified laterality Start:06-Jun-2013 Instruction Type:Provider Instructions for Treatment Patient Instructions Indication:Impaired fasting glucose Start:26-Feb-2013 Instruction Type:Provider Instructions for Treatment obesity counseling Indication:BMI 30.0-30.9,adult Start:27-Sep-2012 Instruction Type:Provider Instructions for Treatment Patient Instructions Indication:Impaired fasting glucose Start:27-Sep-2012 Instruction Type:Provider Instructions for Treatment Patient Instructions Indication:Cellulitis and abscess of leg Start:23-Aug-2012 Instruction Type:Provider Instructions for Treatment Patient Instructions Indication:Cellulitis and abscess of leg Start:12-Jul-2012 Instruction Type:Provider Instructions for Treatment Patient Instructions Indication:Cellulitis and abscess of leg Start:05-Jul-2012 Instruction Type:Provider Instructions for Treatment Patient Instructions Indication:Cellulitis and abscess of leg Start:01-Jul-2012 Instruction Type:Provider Instructions for Treatment Patient Instructions Indication:Cellulitis and abscess of leg Start:28-Jun-2012 Instruction Type:Provider Instructions for Treatment Patient Instructions Indication:Cellulitis and abscess of leg Start:27-Jun-2012 Instruction Type:Provider Instructions for Treatment Patient Instructions Indication:Cellulitis and abscess of leg Start:26-Jun-2012 Instruction Type:Provider Instructions for Treatment Patient Instructions Indication:Cellulitis and abscess of leg Start:25-Jun-2012 Instruction Type:Provider Instructions for Treatment Patient Instructions Indication:Cellulitis and abscess of leg Start:24-Jun-2012 Instruction Type:Provider Instructions for Treatment Patient Instructions Indication:Cellulitis and abscess of leg Start:18-Jun-2012 Instruction Type:Provider Instructions for Treatment Patient Instructions Indication:Cellulitis and abscess of leg Start:17-Jun-2012 Instruction Type:Provider Instructions for Treatment [facility] Work Phone: Instructions* Name Dates Details Patient Instructions Indication:Skin lesion Start:13-Jun-2021 Instruction Type:Provider Instructions for Treatment How to Access Health Informa tion Online using Patient Portal and [employer] Apps Indication:Skin lesion Start:13-Jun-2021 Instruction Type:Patient Education cardiovascular counseling Indication:Coronary artery disease Start:15-Jul-2020 Instruction Type:Provider Instructions for Treatment How to Access Health Informa tion Online using Patient Portal and [facility] Apps Indication:Non-smoker Start:15-Jul-2020 Instruction Type:Patient Education Patient Instructions Indication:Non-smoker Start:15-Jul-2020 Instruction Type:Provider Instructions for Treatment How to access health informa tion online Indication:Non-smoker Start:01-Jul-2020 Instruction Type:Patient Education How to access health informa tion online - Detail Indication:Non-smoker Start:01-Jul-2020 Instruction Type:Patient Education Patient Instructions Indication:Non-smoker Start:01-Jul-2020 Instruction Type:Provider Instructions for Treatment How to access health informa tion online Indication:Non-smoker Start:04-Sep-2019 Instruction Type:Patient Education How to access health informa tion online - Detail Indication:Non-smoker Start:04-Sep-2019 Instruction Type:Patient Education Patient Instructions Indication:Non-smoker Start:04-Sep-2019 Instruction Type:Provider Instructions for Treatment How to access health informa tion online Indication:BMI 27.0-27.9,adult Start:29-Nov-2017 Instruction Type:Patient Education How to access health informa tion online - Detail Indication:BMI 27.0-27.9,adult Start:29-Nov-2017 Instruction Type:Patient Education Patient Instructions Indication:BMI 27.0-27.9,adult Start:29-Nov-2017 Instruction Type:Provider Instructions for Treatment How to access health informa tion online Indication:Diabetes mellitus type II, controlled, with no complications (Renamed from Controlled type 2 diabetes mellitus without complication) Start:29-Nov-2017 Instruction Type:Patient Education Patient Instructions Indication:Diabetes mellitus type II, controlled, with no complications (Renamed from Controlled type 2 diabetes mellitus without complication) Start:29-Nov-2017 Instruction Type:Provider Instructions for Treatment cardiovascular counseling Indication:Coronary artery disease Start:11-Sep-2017 Instruction Type:Provider Instructions for Treatment How to access health informa tion online Indication:Non-smoker Start:11-Sep-2017 Instruction Type:Patient Education How to access health informa tion online - Detail Indication:Non-smoker Start:11-Sep-2017 Instruction Type:Patient Education Patient Instructions Indication:Non-smoker Start:11-Sep-2017 Instruction Type:Provider Instructions for Treatment How to access health informa tion online Indication:Non-smoker Start:28-Aug-2017 Instruction Type:Patient Education How to access health informa tion online - Detail Indication:Non-smoker Start:28-Aug-2017 Instruction Type:Patient Education Patient Instructions Indication:Non-smoker Start:28-Aug-2017 Instruction Type:Provider Instructions for Treatment How to access health informa tion online Indication:Diabetes mellitus type II, controlled, with no complications (Renamed from Controlled type 2 diabetes mellitus without complication) Start:25-Jan-2017 Instruction Type:Patient Education How to access health informa tion online - Detail Indication:Diabetes mellitus type II, controlled, with no complications (Renamed from Controlled type 2 diabetes mellitus without complication) Start:25-Jan-2017 Instruction Type:Patient Education Patient Instructions Indication:Diabetes mellitus type II, controlled, with no complications (Renamed from Controlled type 2 diabetes mellitus without complication) Start:25-Jan-2017 Instruction Type:Provider Instructions for Treatment How to access health informa tion online Indication:BMI 26.0-26.9,adult Start:04-Jul-2016 Instruction Type:Patient Education How to access health informa tion online - Detail Indication:BMI 26.0-26.9,adult Start:04-Jul-2016 Instruction Type:Patient Education Patient Instructions Indication:BMI 26.0-26.9,adult Start:04-Jul-2016 Instruction Type:Provider Instructions for Treatment How to access health [employer] Indication:Diabetes mellitus type II, controlled, with no complications (Renamed from Controlled type 2 diabetes mellitus without complication) Start:22-Dec-2015 Instruction Type:Patient Education How to access health informa tion online - Detail Indication:Diabetes mellitus type II, controlled, with no complications (Renamed from Controlled type 2 diabetes mellitus without complication) Start:22-Dec-2015 Instruction Type:Patient Education Patient Instructions Indication:Diabetes mellitus type II, controlled, with no complications (Renamed from Controlled type 2 diabetes mellitus without complication) Start:22-Dec-2015 Instruction Type:Provider Instructions for Treatment How to access [employer] informa [employer] Indication:Other hyperlipidemia Start:28-Sep-2015 Instruction Type:Patient Education How to access health informa tion online - Detail Indication:Other hyperlipidemia Start:28-Sep-2015 Instruction Type:Patient Education Patient Instructions Indication:Other hyperlipidemia Start:28-Sep-2015 Instruction Type:Provider Instructions for Treatment Patient Instructions Indication:Impaired fasting glucose Start:14-May-2015 Instruction Type:Provider Instructions for Treatment Patient Instructions Indication:Impaired fasting glucose Start:25-Dec-2014 Instruction Type:Provider Instructions for Treatment Patient Instructions Indication:Impaired fasting glucose Start:20-Jul-2014 Instruction Type:Provider Instructions for Treatment Patient Instructions Indication:Hypotension Start:26-Dec-2013 Instruction Type:Provider Instructions for Treatment Patient Instructions Indication:Dizziness and giddiness Start:08-Dec-2013 Instruction Type:Provider Instructions for Treatment Patient Instructions Indication:Essential hypertension Start:04-Jul-2013 Instruction Type:Provider Instructions for Treatment Patient Instructions Indication:Infective otitis externa, unspecified laterality Start:06-Jun-2013 Instruction Type:Provider Instructions for Treatment Patient Instructions Indication:Impaired fasting glucose Start:26-Feb-2013 Instruction Type:Provider Instructions for Treatment obesity counseling Indication:BMI 30.0-30.9,adult Start:27-Sep-2012 Instruction Type:Provider Instructions for Treatment Patient Instructions Indication:Impaired fasting glucose Start:27-Sep-2012 Instruction Type:Provider Instructions for Treatment Patient Instructions Indication:Cellulitis and abscess of leg Start:23-Aug-2012 Instruction Type:Provider Instructions for Treatment Patient Instructions Indication:Cellulitis and abscess of leg Start:12-Jul-2012 Instruction Type:Provider Instructions for Treatment Patient Instructions Indication:Cellulitis and abscess of leg Start:05-Jul-2012 Instruction Type:Provider Instructions for Treatment Patient Instructions Indication:Cellulitis and abscess of leg Start:01-Jul-2012 Instruction Type:Provider Instructions for Treatment Patient Instructions Indication:Cellulitis and abscess of leg Start:28-Jun-2012 Instruction Type:Provider Instructions for Treatment Patient Instructions Indication:Cellulitis and abscess of leg Start:27-Jun-2012 Instruction Type:Provider Instructions for Treatment Patient Instructions Indication:Cellulitis and abscess of leg Start:26-Jun-2012 Instruction Type:Provider Instructions for Treatment Patient Instructions Indication:Cellulitis and abscess of leg Start:25-Jun-2012 Instruction Type:Provider Instructions for Treatment Patient Instructions Indication:Cellulitis and abscess of leg Start:24-Jun-2012 Instruction Type:Provider Instructions for Treatment Patient Instructions Indication:Cellulitis and abscess of leg Start:18-Jun-2012 Instruction Type:Provider Instructions for Treatment Patient Instructions Indication:Cellulitis and abscess of leg Start:17-Jun-2012 Instruction Type:Provider Instructions for Treatment [facility]; [facility] Work Phone: Instructions* Name Dates Details Patient Instructions Indication:Skin lesion Start:13-Jun-2021 Instruction Type:Provider Instructions for Treatment How to Access Health Informa tion Online using Patient Portal and [facility] Apps Indication:Skin lesion Start:13-Jun-2021 Instruction Type:Patient Education cardiovascular counseling Indication:Coronary artery disease Start:15-Jul-2020 Instruction Type:Provider Instructions for Treatment How to Access Health Informa tion Online using Patient Portal and [facility] Apps Indication:Non-smoker Start:15-Jul-2020 Instruction Type:Patient Education Patient Instructions Indication:Non-smoker Start:15-Jul-2020 Instruction Type:Provider Instructions for Treatment How to access health informa tion online Indication:Non-smoker Start:01-Jul-2020 Instruction Type:Patient Education How to access health informa tion online - Detail Indication:Non-smoker Start:01-Jul-2020 Instruction Type:Patient Education Patient Instructions Indication:Non-smoker Start:01-Jul-2020 Instruction Type:Provider Instructions for Treatment How to access health informa tion online Indication:Non-smoker Start:04-Sep-2019 Instruction Type:Patient Education How to access health informa tion online - Detail Indication:Non-smoker Start:04-Sep-2019 Instruction Type:Patient Education Patient Instructions Indication:Non-smoker Start:04-Sep-2019 Instruction Type:Provider Instructions for Treatment How to access health informa tion online Indication:BMI 27.0-27.9,adult Start:29-Nov-2017 Instruction Type:Patient Education How to access health informa tion online - Detail Indication:BMI 27.0-27.9,adult Start:29-Nov-2017 Instruction Type:Patient Education Patient Instructions Indication:BMI 27.0-27.9,adult Start:29-Nov-2017 Instruction Type:Provider Instructions for Treatment How to access health informa tion online Indication:Diabetes mellitus type II, controlled, with no complications (Renamed from Controlled type 2 diabetes mellitus without complication) Start:29-Nov-2017 Instruction Type:Patient Education Patient Instructions Indication:Diabetes mellitus type II, controlled, with no complications (Renamed from Controlled type 2 diabetes mellitus without complication) Start:29-Nov-2017 Instruction Type:Provider Instructions for Treatment cardiovascular counseling Indication:Coronary artery disease Start:11-Sep-2017 Instruction Type:Provider Instructions for Treatment How to access health informa tion online Indication:Non-smoker Start:11-Sep-2017 Instruction Type:Patient Education How to access health informa tion online - Detail Indication:Non-smoker Start:11-Sep-2017 Instruction Type:Patient Education Patient Instructions Indication:Non-smoker Start:11-Sep-2017 Instruction Type:Provider Instructions for Treatment How to access health informa tion online Indication:Non-smoker Start:28-Aug-2017 Instruction Type:Patient Education How to access health informa tion online - Detail Indication:Non-smoker Start:28-Aug-2017 Instruction Type:Patient Education Patient Instructions Indication:Non-smoker Start:28-Aug-2017 Instruction Type:Provider Instructions for Treatment How to access health informa tion online Indication:Diabetes mellitus type II, controlled, with no complications (Renamed from Controlled type 2 diabetes mellitus without complication) Start:25-Jan-2017 Instruction Type:Patient Education How to access health informa tion online - Detail Indication:Diabetes mellitus type II, controlled, with no complications (Renamed from Controlled type 2 diabetes mellitus without complication) Start:25-Jan-2017 Instruction Type:Patient Education Patient Instructions Indication:Diabetes mellitus type II, controlled, with no complications (Renamed from Controlled type 2 diabetes mellitus without complication) Start:25-Jan-2017 Instruction Type:Provider Instructions for Treatment How to access health informa tion online Indication:BMI 26.0-26.9,adult Start:04-Jul-2016 Instruction Type:Patient Education How to access health informa tion online - Detail Indication:BMI 26.0-26.9,adult Start:04-Jul-2016 Instruction Type:Patient Education Patient Instructions Indication:BMI 26.0-26.9,adult Start:04-Jul-2016 Instruction Type:Provider Instructions for Treatment How to access health informa tion online Indication:Diabetes mellitus type II, controlled, with no complications (Renamed from Controlled type 2 diabetes mellitus without complication) Start:22-Dec-2015 Instruction Type:Patient Education How to access health informa tion online - Detail Indication:Diabetes mellitus type II, controlled, with no complications (Renamed from Controlled type 2 diabetes mellitus without complication) Start:22-Dec-2015 Instruction Type:Patient Education Patient Instructions Indication:Diabetes mellitus type II, controlled, with no complications (Renamed from Controlled type 2 diabetes mellitus without complication) Start:22-Dec-2015 Instruction Type:Provider Instructions for Treatment How to access health informa tion online Indication:Other hyperlipidemia Start:28-Sep-2015 Instruction Type:Patient Education How to access health informa tion online - Detail Indication:Other hyperlipidemia Start:28-Sep-2015 Instruction Type:Patient Education Patient Instructions Indication:Other hyperlipidemia Start:28-Sep-2015 Instruction Type:Provider Instructions for Treatment Patient Instructions Indication:Impaired fasting glucose Start:14-May-2015 Instruction Type:Provider Instructions for Treatment Patient Instructions Indication:Impaired fasting glucose Start:25-Dec-2014 Instruction Type:Provider Instructions for Treatment Patient Instructions Indication:Impaired fasting glucose Start:20-Jul-2014 Instruction Type:Provider Instructions for Treatment Patient Instructions Indication:Hypotension Start:26-Dec-2013 Instruction Type:Provider Instructions for Treatment Patient Instructions Indication:Dizziness and giddiness Start:08-Dec-2013 Instruction Type:Provider Instructions for Treatment Patient Instructions Indication:Essential hypertension Start:04-Jul-2013 Instruction Type:Provider Instructions for Treatment Patient Instructions Indication:Infective otitis externa, unspecified laterality Start:06-Jun-2013 Instruction Type:Provider Instructions for Treatment Patient Instructions Indication:Impaired fasting glucose Start:26-Feb-2013 Instruction Type:Provider Instructions for Treatment obesity counseling Indication:BMI 30.0-30.9,adult Start:27-Sep-2012 Instruction Type:Provider Instructions for Treatment Patient Instructions Indication:Impaired fasting glucose Start:27-Sep-2012 Instruction Type:Provider Instructions for Treatment Patient Instructions Indication:Cellulitis and abscess of leg Start:23-Aug-2012 Instruction Type:Provider Instructions for Treatment Patient Instructions Indication:Cellulitis and abscess of leg Start:12-Jul-2012 Instruction Type:Provider Instructions for Treatment Patient Instructions Indication:Cellulitis and abscess of leg Start:05-Jul-2012 Instruction Type:Provider Instructions for Treatment Patient Instructions Indication:Cellulitis and abscess of leg Start:01-Jul-2012 Instruction Type:Provider Instructions for Treatment Patient Instructions Indication:Cellulitis and abscess of leg Start:28-Jun-2012 Instruction Type:Provider Instructions for Treatment Patient Instructions Indication:Cellulitis and abscess of leg Start:27-Jun-2012 Instruction Type:Provider Instructions for Treatment Patient Instructions Indication:Cellulitis and abscess of leg Start:26-Jun-2012 Instruction Type:Provider Instructions for Treatment Patient Instructions Indication:Cellulitis and abscess of leg Start:25-Jun-2012 Instruction Type:Provider Instructions for Treatment Patient Instructions Indication:Cellulitis and abscess of leg Start:24-Jun-2012 Instruction Type:Provider Instructions for Treatment Patient Instructions Indication:Cellulitis and abscess of leg Start:18-Jun-2012 Instruction Type:Provider Instructions for Treatment Patient Instructions Indication:Cellulitis and abscess of leg Start:17-Jun-2012 Instruction Type:Provider Instructions for Treatment [facility] Work Phone: reason for referral (narrative)No [facility] for [facility]: Family History No Family History Records FoundUnknown Family Member Name Dates Details Brother 1 Comments:cabg, - 50s Status:Active Brother 2 Comments:[email or web address]-[email or web address], Status:Active Brother 3 Comments:cabg Status:Active Father Comments:-52 [place] Status:Active Mother Comments:- heart dis ease, mi-age 59 Status:Active Unknown Family Member Name Dates Details Brother 1 Comments:cabg, - 50s Status:Active Brother 2 Comments:[email or web address], Status:Active Brother 3 Comments:cabg Status:Active Father Comments:-52 [place] Status:Active Mother Comments:- heart dis ease, mi-age 59 Status:Active Unknown Family Member Name Dates Details Brother 1 Comments:cabg, - 50s Status:Active Brother 2 Comments:[email or web address], Status:Active Brother 3 Comments:cabg Status:Active Father Comments:-52 [place] Status:Active Mother Comments:- heart dis ease, mi-age 59 Status:Active Unknown Family Member Name Dates Details Brother 1 Comments:cabg, - 50s Status:Active Brother 2 Comments:[email or web address], Status:Active Brother 3 Comments:cabg Status:Active Father Comments:-52 [place] Status:Active Mother Comments:- heart dis ease, mi-age 59 Status:Active Unknown Family Member Name Dates Details Brother 1 Comments:cabg, - 50s Status:Active Brother 2 Comments:[email or web address], Status:Active Brother 3 Comments:cabg Status:Active Father Comments:-52 [place] Status:Active Mother Comments:- heart dis ease, mi-age 59 Status:Active Unknown Family Member Name Dates Details Brother 1 Comments:cabg, - 50s Status:Active Brother 2 Comments:[email or web address]-60s, Status:Active Brother 3 Comments:cabg Status:Active Father Comments:-52 [place] Status:Active Mother Comments:- heart dis ease, mi-age 59 Status:Active Unknown Family Member Name Dates Details Brother 1 Comments:cabg, - 50s Status:Active Brother 2 Comments:[email or web address]-60s, Status:Active Brother 3 Comments:cabg Status:Active Father Comments:-52 [place] Status:Active Mother Comments:- heart dis ease, mi-age 59 Status:Active Unknown Family Member Name Dates Details Brother 1 Comments:cabg, - 50s Status:Active Brother 2 Comments:[email or web address]-60s, Status:Active Brother 3 Comments:cabg Status:Active Father Comments:-52 [place] Status:Active Mother Comments:- heart dis ease, mi-age 59 Status:Active Unknown Family Member Name Dates Details Brother 1 Comments:cabg, - 50s Status:Active Brother 2 Comments:[email or web address]-60s, Status:Active Brother 3 Comments:cabg Status:Active Father Comments:-52 [place] Status:Active Mother Comments:- heart dis ease, mi-age 59 Status:Active Unknown Family Member Name Dates Details Brother 1 Comments:cabg, - 50s Status:Active Brother 2 Comments:[email or web address]-60s, Status:Active Brother 3 Comments:cabg Status:Active Father Comments:-52 [place] Status:Active Mother Comments:- heart dis ease, mi-age 59 Status:Active Unknown Family Member Name Dates Details Brother 1 Comments:cabg, - 50s Status:Active Brother 2 Comments:[email or web address]-60s, Status:Active Brother 3 Comments:cabg Status:Active Father Comments:-52 [place] Status:Active Mother Comments:- heart dis ease, mi-age 59 Status:Active Unknown Family Member Name Dates Details Brother 1 Comments:cabg, - 50s Status:Active Brother 2 Comments:[email or web address]-60s, Status:Active Brother 3 Comments:cabg Status:Active Father Comments:-52 [place] Status:Active Mother Comments:- heart dis ease, mi-age 59 Status:Active Unknown Family Member Name Dates Details Brother 1 Comments:cabg, - 50s Status:Active Brother 2 Comments:[email or web address]-60s, Status:Active Brother 3 Comments:cabg Status:Active Father Comments:-52 [place] Status:Active Mother Comments:- heart dis ease, mi-age 59 Status:Active Unknown Family Member Name Dates Details Brother 1 Comments:cabg, - 50s Status:Active Brother 2 Comments:[email or web address]-60s, Status:Active Brother 3 Comments:cabg Status:Active Father Comments:-52 [place] Status:Active Mother Comments:- heart dis ease, mi-age 59 Status:Active Unknown Family Member Name Dates Details Brother 1 Comments:cabg, - 50s Status:Active Brother 2 Comments:[email or web address]-60s, Status:Active Brother 3 Comments:cabg Status:Active Father Comments:-52 [place] Status:Active Mother Comments:- heart dis ease, mi-age 59 Status:Active Unknown Family Member Name Dates Details Brother 1 Comments:cabg, - 50s Status:Active Brother 2 Comments:[email or web address]-60s, Status:Active Brother 3 Comments:cabg Status:Active Father Comments:-52 [place] Status:Active Mother Comments:- heart dis ease, mi-age 59 Status:Active Unknown Family Member Name Dates Details Brother 1 Comments:cabg, - 50s Status:Active Brother 2 Comments:[email or web address]-60s, Status:Active Brother 3 Comments:cabg Status:Active Father Comments:-52 [place] Status:Active Mother Comments:- heart dis ease, mi-age 59 Status:Active Unknown Family Member Name Dates Details Brother 1 Comments:cabg, - 50s Status:Active Brother 2 Comments:[email or web address]-60s, Status:Active Brother 3 Comments:cabg Status:Active Father Comments:-52 [place] Status:Active Mother Comments:- heart dis ease, mi-age 59 Status:Active Relationship Condition Age at Onset Recorded Date/T jaya father Coronary artery disease Unknown mother Coronary artery disease Unknown brother Coronary artery disease Unknown Instructions Name Dates Details BMI 27.0-27.9,adult : How to access health information online Indication:BMI 27.0-27.9,adult BMI 27.0-27.9,adult : How to access health information online - Detail Indication:BMI 27.0-27.9,adult BMI 27.0-27.9,adult : Patien t Instructions Indication:BMI 27.0-27.9,adult Diabetes mellitus type II, c ontrolled, with no complications (Renamed from Controlled type 2 diabetes mellitus without complication) : How to access health information online Indication:Diabetes mellitus type II, controlled, with no complications (Renamed from Controlled type 2 diabetes mellitus without complication) Diabetes mellitus type II, c ontrolled, with no complications (Renamed from Controlled type 2 diabetes mellitus without complication) : Patient Instructions Indication:Diabetes mellitus type II, controlled, with no complications (Renamed from Controlled type 2 diabetes mellitus without complication) Coronary artery disease : ca rdiovascular counseling Indication:Coronary artery disease Non-smoker : How to access h ealth information online Indication:Non-smoker Non-smoker : How to access h ealth information online - Detail Indication:Non-smoker Non-smoker : Patient Instruc tions Indication:Non-smoker Diabetes mellitus type II, c ontrolled, with no complications (Renamed from Controlled type 2 diabetes mellitus without complication) : How to access health information online - Detail Indication:Diabetes mellitus type II, controlled, with no complications (Renamed from Controlled type 2 diabetes mellitus without complication) BMI 26.0-26.9,adult : How to access health information online Indication:BMI 26.0-26.9,adult BMI 26.0-26.9,adult : How to access health information online - Detail Indication:BMI 26.0-26.9,adult BMI 26.0-26.9,adult : Patien t Instructions Indication:BMI 26.0-26.9,adult Other hyperlipidemia : How t o access health information online Indication:Other hyperlipidemia Other hyperlipidemia : How t o access health information online - Detail Indication:Other hyperlipidemia Other hyperlipidemia : Patie nt Instructions Indication:Other hyperlipidemia Impaired fasting glucose : P atient Instructions Indication:Impaired fasting glucose Hypotension : Patient Instru ctions Indication:Hypotension Dizziness and giddiness : Pa tient Instructions Indication:Dizziness and giddiness Essential hypertension : Pat ient Instructions Indication:Essential hypertension Infective otitis externa, un specified laterality : Patient Instructions Indication:Infective otitis externa, unspecified laterality BMI 30.0-30.9,adult : obesit y counseling Indication:BMI 30.0-30.9,adult Cellulitis and abscess of le g : Patient Instructions Indication:Cellulitis and abscess of leg Name Dates Details How to access health informa tion online Indication:BMI 27.0-27.9,adult Start:29-Nov-2017 Instruction Type:Patient Education How to access health informa tion online - Detail Indication:BMI 27.0-27.9,adult Start:29-Nov-2017 Instruction Type:Patient Education Patient Instructions Indication:BMI 27.0-27.9,adult Start:29-Nov-2017 Instruction Type:Provider Instructions for Treatment How to access health informa tion online Indication:Diabetes mellitus type II, controlled, with no complications (Renamed from Controlled type 2 diabetes mellitus without complication) Start:29-Nov-2017 Instruction Type:Patient Education Patient Instructions Indication:Diabetes mellitus type II, controlled, with no complications (Renamed from Controlled type 2 diabetes mellitus without complication) Start:29-Nov-2017 Instruction Type:Provider Instructions for Treatment cardiovascular counseling Indication:Coronary artery disease Start:11-Sep-2017 Instruction Type:Provider Instructions for Treatment How to access health informa tion online Indication:Non-smoker Start:11-Sep-2017 Instruction Type:Patient Education How to access health informa tion online - Detail Indication:Non-smoker Start:11-Sep-2017 Instruction Type:Patient Education Patient Instructions Indication:Non-smoker Start:11-Sep-2017 Instruction Type:Provider Instructions for Treatment How to access health informa tion online Indication:Non-smoker Start:28-Aug-2017 Instruction Type:Patient Education How to access health informa tion online - Detail Indication:Non-smoker Start:28-Aug-2017 Instruction Type:Patient Education Patient Instructions Indication:Non-smoker Start:28-Aug-2017 Instruction Type:Provider Instructions for Treatment How to access health informa tion online Indication:Diabetes mellitus type II, controlled, with no complications (Renamed from Controlled type 2 diabetes mellitus without complication) Start:25-Jan-2017 Instruction Type:Patient Education How to access health informa tion online - Detail Indication:Diabetes mellitus type II, controlled, with no complications (Renamed from Controlled type 2 diabetes mellitus without complication) Start:25-Jan-2017 Instruction Type:Patient Education Patient Instructions Indication:Diabetes mellitus type II, controlled, with no complications (Renamed from Controlled type 2 diabetes mellitus without complication) Start:25-Jan-2017 Instruction Type:Provider Instructions for Treatment How to access health informa tion online Indication:BMI 26.0-26.9,adult Start:04-Jul-2016 Instruction Type:Patient Education How to access health informa tion online - Detail Indication:BMI 26.0-26.9,adult Start:04-Jul-2016 Instruction Type:Patient Education Patient Instructions Indication:BMI 26.0-26.9,adult Start:04-Jul-2016 Instruction Type:Provider Instructions for Treatment How to access health informa tion online Indication:Diabetes mellitus type II, controlled, with no complications (Renamed from Controlled type 2 diabetes mellitus without complication) Start:22-Dec-2015 Instruction Type:Patient Education How to access health informa tion online - Detail Indication:Diabetes mellitus type II, controlled, with no complications (Renamed from Controlled type 2 diabetes mellitus without complication) Start:22-Dec-2015 Instruction Type:Patient Education Patient Instructions Indication:Diabetes mellitus type II, controlled, with no complications (Renamed from Controlled type 2 diabetes mellitus without complication) Start:22-Dec-2015 Instruction Type:Provider Instructions for Treatment How to access health informa tion online Indication:Other hyperlipidemia Start:28-Sep-2015 Instruction Type:Patient Education How to access health informa tion online - Detail Indication:Other hyperlipidemia Start:28-Sep-2015 Instruction Type:Patient Education Patient Instructions Indication:Other hyperlipidemia Start:28-Sep-2015 Instruction Type:Provider Instructions for Treatment Patient Instructions Indication:Impaired fasting glucose Start:14-May-2015 Instruction Type:Provider Instructions for Treatment Patient Instructions Indication:Impaired fasting glucose Start:25-Dec-2014 Instruction Type:Provider Instructions for Treatment Patient Instructions Indication:Impaired fasting glucose Start:20-Jul-2014 Instruction Type:Provider Instructions for Treatment Patient Instructions Indication:Hypotension Start:26-Dec-2013 Instruction Type:Provider Instructions for Treatment Patient Instructions Indication:Dizziness and giddiness Start:08-Dec-2013 Instruction Type:Provider Instructions for Treatment Patient Instructions Indication:Essential hypertension Start:04-Jul-2013 Instruction Type:Provider Instructions for Treatment Patient Instructions Indication:Infective otitis externa, unspecified laterality Start:06-Jun-2013 Instruction Type:Provider Instructions for Treatment Patient Instructions Indication:Impaired fasting glucose Start:26-Feb-2013 Instruction Type:Provider Instructions for Treatment obesity counseling Indication:BMI 30.0-30.9,adult Start:27-Sep-2012 Instruction Type:Provider Instructions for Treatment Patient Instructions Indication:Impaired fasting glucose Start:27-Sep-2012 Instruction Type:Provider Instructions for Treatment Patient Instructions Indication:Cellulitis and abscess of leg Start:23-Aug-2012 Instruction Type:Provider Instructions for Treatment Patient Instructions Indication:Cellulitis and abscess of leg Start:12-Jul-2012 Instruction Type:Provider Instructions for Treatment Patient Instructions Indication:Cellulitis and abscess of leg Start:05-Jul-2012 Instruction Type:Provider Instructions for Treatment Patient Instructions Indication:Cellulitis and abscess of leg Start:01-Jul-2012 Instruction Type:Provider Instructions for Treatment Patient Instructions Indication:Cellulitis and abscess of leg Start:28-Jun-2012 Instruction Type:Provider Instructions for Treatment Patient Instructions Indication:Cellulitis and abscess of leg Start:27-Jun-2012 Instruction Type:Provider Instructions for Treatment Patient Instructions Indication:Cellulitis and abscess of leg Start:26-Jun-2012 Instruction Type:Provider Instructions for Treatment Patient Instructions Indication:Cellulitis and abscess of leg Start:25-Jun-2012 Instruction Type:Provider Instructions for Treatment Patient Instructions Indication:Cellulitis and abscess of leg Start:24-Jun-2012 Instruction Type:Provider Instructions for Treatment Patient Instructions Indication:Cellulitis and abscess of leg Start:18-Jun-2012 Instruction Type:Provider Instructions for Treatment Patient Instructions Indication:Cellulitis and abscess of leg Start:17-Jun-2012 Instruction Type:Provider Instructions for Treatment Name Dates Details How to access [employer] [facility]a [employer] online Indication:Non-smoker Start:04-Sep-2019 Instruction Type:Patient Education How to access health informa tion online - Detail Indication:Non-smoker Start:04-Sep-2019 Instruction Type:Patient Education Patient Instructions Indication:Non-smoker Start:04-Sep-2019 Instruction Type:Provider Instructions for Treatment How to access health informa tion online Indication:BMI 27.0-27.9,adult Start:29-Nov-2017 Instruction Type:Patient Education How to access health informa tion online - Detail Indication:BMI 27.0-27.9,adult Start:29-Nov-2017 Instruction Type:Patient Education Patient Instructions Indication:BMI 27.0-27.9,adult Start:29-Nov-2017 Instruction Type:Provider Instructions for Treatment How to access health informa tion online Indication:Diabetes mellitus type II, controlled, with no complications (Renamed from Controlled type 2 diabetes mellitus without complication) Start:29-Nov-2017 Instruction Type:Patient Education Patient Instructions Indication:Diabetes mellitus type II, controlled, with no complications (Renamed from Controlled type 2 diabetes mellitus without complication) Start:29-Nov-2017 Instruction Type:Provider Instructions for Treatment cardiovascular counseling Indication:Coronary artery disease Start:11-Sep-2017 Instruction Type:Provider Instructions for Treatment How to access health informa tion online Indication:Non-smoker Start:11-Sep-2017 Instruction Type:Patient Education How to access health informa tion online - Detail Indication:Non-smoker Start:11-Sep-2017 Instruction Type:Patient Education Patient Instructions Indication:Non-smoker Start:11-Sep-2017 Instruction Type:Provider Instructions for Treatment How to access health informa tion online Indication:Non-smoker Start:28-Aug-2017 Instruction Type:Patient Education How to access health informa tion online - Detail Indication:Non-smoker Start:28-Aug-2017 Instruction Type:Patient Education Patient Instructions Indication:Non-smoker Start:28-Aug-2017 Instruction Type:Provider Instructions for Treatment How to access health informa tion online Indication:Diabetes mellitus type II, controlled, with no complications (Renamed from Controlled type 2 diabetes mellitus without complication) Start:25-Jan-2017 Instruction Type:Patient Education How to access health informa tion online - Detail Indication:Diabetes mellitus type II, controlled, with no complications (Renamed from Controlled type 2 diabetes mellitus without complication) Start:25-Jan-2017 Instruction Type:Patient Education Patient Instructions Indication:Diabetes mellitus type II, controlled, with no complications (Renamed from Controlled type 2 diabetes mellitus without complication) Start:25-Jan-2017 Instruction Type:Provider Instructions for Treatment How to access health informa tion online Indication:BMI 26.0-26.9,adult Start:04-Jul-2016 Instruction Type:Patient Education How to access health informa tion online - Detail Indication:BMI 26.0-26.9,adult Start:04-Jul-2016 Instruction Type:Patient Education Patient Instructions Indication:BMI 26.0-26.9,adult Start:04-Jul-2016 Instruction Type:Provider Instructions for Treatment How to access health informa tion online Indication:Diabetes mellitus type II, controlled, with no complications (Renamed from Controlled type 2 diabetes mellitus without complication) Start:22-Dec-2015 Instruction Type:Patient Education How to access health informa tion online - Detail Indication:Diabetes mellitus type II, controlled, with no complications (Renamed from Controlled type 2 diabetes mellitus without complication) Start:22-Dec-2015 Instruction Type:Patient Education Patient Instructions Indication:Diabetes mellitus type II, controlled, with no complications (Renamed from Controlled type 2 diabetes mellitus without complication) Start:22-Dec-2015 Instruction Type:Provider Instructions for Treatment How to access health informa tion online Indication:Other hyperlipidemia Start:28-Sep-2015 Instruction Type:Patient Education How to access health informa tion online - Detail Indication:Other hyperlipidemia Start:28-Sep-2015 Instruction Type:Patient Education Patient Instructions Indication:Other hyperlipidemia Start:28-Sep-2015 Instruction Type:Provider Instructions for Treatment Patient Instructions Indication:Impaired fasting glucose Start:14-May-2015 Instruction Type:Provider Instructions for Treatment Patient Instructions Indication:Impaired fasting glucose Start:25-Dec-2014 Instruction Type:Provider Instructions for Treatment Patient Instructions Indication:Impaired fasting glucose Start:20-Jul-2014 Instruction Type:Provider Instructions for Treatment Patient Instructions Indication:Hypotension Start:26-Dec-2013 Instruction Type:Provider Instructions for Treatment Patient Instructions Indication:Dizziness and giddiness Start:08-Dec-2013 Instruction Type:Provider Instructions for Treatment Patient Instructions Indication:Essential hypertension Start:04-Jul-2013 Instruction Type:Provider Instructions for Treatment Patient Instructions Indication:Infective otitis externa, unspecified laterality Start:06-Jun-2013 Instruction Type:Provider Instructions for Treatment Patient Instructions Indication:Impaired fasting glucose Start:26-Feb-2013 Instruction Type:Provider Instructions for Treatment obesity counseling Indication:BMI 30.0-30.9,adult Start:27-Sep-2012 Instruction Type:Provider Instructions for Treatment Patient Instructions Indication:Impaired fasting glucose Start:27-Sep-2012 Instruction Type:Provider Instructions for Treatment Patient Instructions Indication:Cellulitis and abscess of leg Start:23-Aug-2012 Instruction Type:Provider Instructions for Treatment Patient Instructions Indication:Cellulitis and abscess of leg Start:12-Jul-2012 Instruction Type:Provider Instructions for Treatment Patient Instructions Indication:Cellulitis and abscess of leg Start:05-Jul-2012 Instruction Type:Provider Instructions for Treatment Patient Instructions Indication:Cellulitis and abscess of leg Start:01-Jul-2012 Instruction Type:Provider Instructions for Treatment Patient Instructions Indication:Cellulitis and abscess of leg Start:28-Jun-2012 Instruction Type:Provider Instructions for Treatment Patient Instructions Indication:Cellulitis and abscess of leg Start:27-Jun-2012 Instruction Type:Provider Instructions for Treatment Patient Instructions Indication:Cellulitis and abscess of leg Start:26-Jun-2012 Instruction Type:Provider Instructions for Treatment Patient Instructions Indication:Cellulitis and abscess of leg Start:25-Jun-2012 Instruction Type:Provider Instructions for Treatment Patient Instructions Indication:Cellulitis and abscess of leg Start:24-Jun-2012 Instruction Type:Provider Instructions for Treatment Patient Instructions Indication:Cellulitis and abscess of leg Start:18-Jun-2012 Instruction Type:Provider Instructions for Treatment Patient Instructions Indication:Cellulitis and abscess of leg Start:17-Jun-2012 Instruction Type:Provider Instructions for Treatment Name Dates Details How to access health [employer] online Indication:Non-smoker Start:04-Sep-2019 Instruction Type:Patient Education How to access health informa [employer] online - Detail Indication:Non-smoker Start:04-Sep-2019 Instruction Type:Patient Education Patient Instructions Indication:Non-smoker Start:04-Sep-2019 Instruction Type:Provider Instructions for Treatment How to access health informa [employer] online Indication:BMI 27.0-27.9,adult Start:29-Nov-2017 Instruction Type:Patient Education How to access health informa [employer] online - Detail Indication:BMI 27.0-27.9,adult Start:29-Nov-2017 Instruction Type:Patient Education Patient Instructions Indication:BMI 27.0-27.9,adult Start:29-Nov-2017 Instruction Type:Provider Instructions for Treatment How to access health informa tion online Indication:Diabetes mellitus type II, controlled, with no complications (Renamed from Controlled type 2 diabetes mellitus without complication) Start:29-Nov-2017 Instruction Type:Patient Education Patient Instructions Indication:Diabetes mellitus type II, controlled, with no complications (Renamed from Controlled type 2 diabetes mellitus without complication) Start:29-Nov-2017 Instruction Type:Provider Instructions for Treatment cardiovascular counseling Indication:Coronary artery disease Start:11-Sep-2017 Instruction Type:Provider Instructions for Treatment How to access health informa tion online Indication:Non-smoker Start:11-Sep-2017 Instruction Type:Patient Education How to access health informa tion online - Detail Indication:Non-smoker Start:11-Sep-2017 Instruction Type:Patient Education Patient Instructions Indication:Non-smoker Start:11-Sep-2017 Instruction Type:Provider Instructions for Treatment How to access health informa tion online Indication:Non-smoker Start:28-Aug-2017 Instruction Type:Patient Education How to access health informa tion online - Detail Indication:Non-smoker Start:28-Aug-2017 Instruction Type:Patient Education Patient Instructions Indication:Non-smoker Start:28-Aug-2017 Instruction Type:Provider Instructions for Treatment How to access health informa tion online Indication:Diabetes mellitus type II, controlled, with no complications (Renamed from Controlled type 2 diabetes mellitus without complication) Start:25-Jan-2017 Instruction Type:Patient Education How to access health informa tion online - Detail Indication:Diabetes mellitus type II, controlled, with no complications (Renamed from Controlled type 2 diabetes mellitus without complication) Start:25-Jan-2017 Instruction Type:Patient Education Patient Instructions Indication:Diabetes mellitus type II, controlled, with no complications (Renamed from Controlled type 2 diabetes mellitus without complication) Start:25-Jan-2017 Instruction Type:Provider Instructions for Treatment How to access health informa tion online Indication:BMI 26.0-26.9,adult Start:04-Jul-2016 Instruction Type:Patient Education How to access health informa tion online - Detail Indication:BMI 26.0-26.9,adult Start:04-Jul-2016 Instruction Type:Patient Education Patient Instructions Indication:BMI 26.0-26.9,adult Start:04-Jul-2016 Instruction Type:Provider Instructions for Treatment How to access health informa tion online Indication:Diabetes mellitus type II, controlled, with no complications (Renamed from Controlled type 2 diabetes mellitus without complication) Start:22-Dec-2015 Instruction Type:Patient Education How to access health informa tion online - Detail Indication:Diabetes mellitus type II, controlled, with no complications (Renamed from Controlled type 2 diabetes mellitus without complication) Start:22-Dec-2015 Instruction Type:Patient Education Patient Instructions Indication:Diabetes mellitus type II, controlled, with no complications (Renamed from Controlled type 2 diabetes mellitus without complication) Start:22-Dec-2015 Instruction Type:Provider Instructions for Treatment How to access health informa tion online Indication:Other hyperlipidemia Start:28-Sep-2015 Instruction Type:Patient Education How to access health informa tion online - Detail Indication:Other hyperlipidemia Start:28-Sep-2015 Instruction Type:Patient Education Patient Instructions Indication:Other hyperlipidemia Start:28-Sep-2015 Instruction Type:Provider Instructions for Treatment Patient Instructions Indication:Impaired fasting glucose Start:14-May-2015 Instruction Type:Provider Instructions for Treatment Patient Instructions Indication:Impaired fasting glucose Start:25-Dec-2014 Instruction Type:Provider Instructions for Treatment Patient Instructions Indication:Impaired fasting glucose Start:20-Jul-2014 Instruction Type:Provider Instructions for Treatment Patient Instructions Indication:Hypotension Start:26-Dec-2013 Instruction Type:Provider Instructions for Treatment Patient Instructions Indication:Dizziness and giddiness Start:08-Dec-2013 Instruction Type:Provider Instructions for Treatment Patient Instructions Indication:Essential hypertension Start:04-Jul-2013 Instruction Type:Provider Instructions for Treatment Patient Instructions Indication:Infective otitis externa, unspecified laterality Start:06-Jun-2013 Instruction Type:Provider Instructions for Treatment Patient Instructions Indication:Impaired fasting glucose Start:26-Feb-2013 Instruction Type:Provider Instructions for Treatment obesity counseling Indication:BMI 30.0-30.9,adult Start:27-Sep-2012 Instruction Type:Provider Instructions for Treatment Patient Instructions Indication:Impaired fasting glucose Start:27-Sep-2012 Instruction Type:Provider Instructions for Treatment Patient Instructions Indication:Cellulitis and abscess of leg Start:23-Aug-2012 Instruction Type:Provider Instructions for Treatment Patient Instructions Indication:Cellulitis and abscess of leg Start:12-Jul-2012 Instruction Type:Provider Instructions for Treatment Patient Instructions Indication:Cellulitis and abscess of leg Start:05-Jul-2012 Instruction Type:Provider Instructions for Treatment Patient Instructions Indication:Cellulitis and abscess of leg Start:01-Jul-2012 Instruction Type:Provider Instructions for Treatment Patient Instructions Indication:Cellulitis and abscess of leg Start:28-Jun-2012 Instruction Type:Provider Instructions for Treatment Patient Instructions Indication:Cellulitis and abscess of leg Start:27-Jun-2012 Instruction Type:Provider Instructions for Treatment Patient Instructions Indication:Cellulitis and abscess of leg Start:26-Jun-2012 Instruction Type:Provider Instructions for Treatment Patient Instructions Indication:Cellulitis and abscess of leg Start:25-Jun-2012 Instruction Type:Provider Instructions for Treatment Patient Instructions Indication:Cellulitis and abscess of leg Start:24-Jun-2012 Instruction Type:Provider Instructions for Treatment Patient Instructions Indication:Cellulitis and abscess of leg Start:18-Jun-2012 Instruction Type:Provider Instructions for Treatment Patient Instructions Indication:Cellulitis and abscess of leg Start:17-Jun-2012 Instruction Type:Provider Instructions for Treatment Name Dates Details How to access health informa tion online Indication:Non-smoker Start:01-Jul-2020 Instruction Type:Patient Education How to access health informa tion online - Detail Indication:Non-smoker Start:01-Jul-2020 Instruction Type:Patient Education Patient Instructions Indication:Non-smoker Start:01-Jul-2020 Instruction Type:Provider Instructions for Treatment How to access health informa tion online Indication:Non-smoker Start:04-Sep-2019 Instruction Type:Patient Education How to access health informa tion online - Detail Indication:Non-smoker Start:04-Sep-2019 Instruction Type:Patient Education Patient Instructions Indication:Non-smoker Start:04-Sep-2019 Instruction Type:Provider Instructions for Treatment How to access health informa tion online Indication:BMI 27.0-27.9,adult Start:29-Nov-2017 Instruction Type:Patient Education How to access health informa tion online - Detail Indication:BMI 27.0-27.9,adult Start:29-Nov-2017 Instruction Type:Patient Education Patient Instructions Indication:BMI 27.0-27.9,adult Start:29-Nov-2017 Instruction Type:Provider Instructions for Treatment How to access health informa tion online Indication:Diabetes mellitus type II, controlled, with no complications (Renamed from Controlled type 2 diabetes mellitus without complication) Start:29-Nov-2017 Instruction Type:Patient Education Patient Instructions Indication:Diabetes mellitus type II, controlled, with no complications (Renamed from Controlled type 2 diabetes mellitus without complication) Start:29-Nov-2017 Instruction Type:Provider Instructions for Treatment cardiovascular counseling Indication:Coronary artery disease Start:11-Sep-2017 Instruction Type:Provider Instructions for Treatment How to access health informa tion online Indication:Non-smoker Start:11-Sep-2017 Instruction Type:Patient Education How to access health informa tion online - Detail Indication:Non-smoker Start:11-Sep-2017 Instruction Type:Patient Education Patient Instructions Indication:Non-smoker Start:11-Sep-2017 Instruction Type:Provider Instructions for Treatment How to access health informa tion online Indication:Non-smoker Start:28-Aug-2017 Instruction Type:Patient Education How to access health informa tion online - Detail Indication:Non-smoker Start:28-Aug-2017 Instruction Type:Patient Education Patient Instructions Indication:Non-smoker Start:28-Aug-2017 Instruction Type:Provider Instructions for Treatment How to access health informa tion online Indication:Diabetes mellitus type II, controlled, with no complications (Renamed from Controlled type 2 diabetes mellitus without complication) Start:25-Jan-2017 Instruction Type:Patient Education How to access health informa tion online - Detail Indication:Diabetes mellitus type II, controlled, with no complications (Renamed from Controlled type 2 diabetes mellitus without complication) Start:25-Jan-2017 Instruction Type:Patient Education Patient Instructions Indication:Diabetes mellitus type II, controlled, with no complications (Renamed from Controlled type 2 diabetes mellitus without complication) Start:25-Jan-2017 Instruction Type:Provider Instructions for Treatment How to access health informa tion online Indication:BMI 26.0-26.9,adult Start:04-Jul-2016 Instruction Type:Patient Education How to access health informa tion online - Detail Indication:BMI 26.0-26.9,adult Start:04-Jul-2016 Instruction Type:Patient Education Patient Instructions Indication:BMI 26.0-26.9,adult Start:04-Jul-2016 Instruction Type:Provider Instructions for Treatment How to access health informa tion online Indication:Diabetes mellitus type II, controlled, with no complications (Renamed from Controlled type 2 diabetes mellitus without complication) Start:22-Dec-2015 Instruction Type:Patient Education How to access health informa tion online - Detail Indication:Diabetes mellitus type II, controlled, with no complications (Renamed from Controlled type 2 diabetes mellitus without complication) Start:22-Dec-2015 Instruction Type:Patient Education Patient Instructions Indication:Diabetes mellitus type II, controlled, with no complications (Renamed from Controlled type 2 diabetes mellitus without complication) Start:22-Dec-2015 Instruction Type:Provider Instructions for Treatment How to access health informa tion online Indication:Other hyperlipidemia Start:28-Sep-2015 Instruction Type:Patient Education How to access health informa tion online - Detail Indication:Other hyperlipidemia Start:28-Sep-2015 Instruction Type:Patient Education Patient Instructions Indication:Other hyperlipidemia Start:28-Sep-2015 Instruction Type:Provider Instructions for Treatment Patient Instructions Indication:Impaired fasting glucose Start:14-May-2015 Instruction Type:Provider Instructions for Treatment Patient Instructions Indication:Impaired fasting glucose Start:25-Dec-2014 Instruction Type:Provider Instructions for Treatment Patient Instructions Indication:Impaired fasting glucose Start:20-Jul-2014 Instruction Type:Provider Instructions for Treatment Patient Instructions Indication:Hypotension Start:26-Dec-2013 Instruction Type:Provider Instructions for Treatment Patient Instructions Indication:Dizziness and giddiness Start:08-Dec-2013 Instruction Type:Provider Instructions for Treatment Patient Instructions Indication:Essential hypertension Start:04-Jul-2013 Instruction Type:Provider Instructions for Treatment Patient Instructions Indication:Infective otitis externa, unspecified laterality Start:06-Jun-2013 Instruction Type:Provider Instructions for Treatment Patient Instructions Indication:Impaired fasting glucose Start:26-Feb-2013 Instruction Type:Provider Instructions for Treatment obesity counseling Indication:BMI 30.0-30.9,adult Start:27-Sep-2012 Instruction Type:Provider Instructions for Treatment Patient Instructions Indication:Impaired fasting glucose Start:27-Sep-2012 Instruction Type:Provider Instructions for Treatment Patient Instructions Indication:Cellulitis and abscess of leg Start:23-Aug-2012 Instruction Type:Provider Instructions for Treatment Patient Instructions Indication:Cellulitis and abscess of leg Start:12-Jul-2012 Instruction Type:Provider Instructions for Treatment Patient Instructions Indication:Cellulitis and abscess of leg Start:05-Jul-2012 Instruction Type:Provider Instructions for Treatment Patient Instructions Indication:Cellulitis and abscess of leg Start:01-Jul-2012 Instruction Type:Provider Instructions for Treatment Patient Instructions Indication:Cellulitis and abscess of leg Start:28-Jun-2012 Instruction Type:Provider Instructions for Treatment Patient Instructions Indication:Cellulitis and abscess of leg Start:27-Jun-2012 Instruction Type:Provider Instructions for Treatment Patient Instructions Indication:Cellulitis and abscess of leg Start:26-Jun-2012 Instruction Type:Provider Instructions for Treatment Patient Instructions Indication:Cellulitis and abscess of leg Start:25-Jun-2012 Instruction Type:Provider Instructions for Treatment Patient Instructions Indication:Cellulitis and abscess of leg Start:24-Jun-2012 Instruction Type:Provider Instructions for Treatment Patient Instructions Indication:Cellulitis and abscess of leg Start:18-Jun-2012 Instruction Type:Provider Instructions for Treatment Patient Instructions Indication:Cellulitis and abscess of leg Start:17-Jun-2012 Instruction Type:Provider Instructions for Treatment Name Dates Details How to access health informa tion online Indication:Non-smoker Start:01-Jul-2020 Instruction Type:Patient Education How to access health informa tion online - Detail Indication:Non-smoker Start:01-Jul-2020 Instruction Type:Patient Education Patient Instructions Indication:Non-smoker Start:01-Jul-2020 Instruction Type:Provider Instructions for Treatment How to access health informa tion online Indication:Non-smoker Start:04-Sep-2019 Instruction Type:Patient Education How to access health informa tion online - Detail Indication:Non-smoker Start:04-Sep-2019 Instruction Type:Patient Education Patient Instructions Indication:Non-smoker Start:04-Sep-2019 Instruction Type:Provider Instructions for Treatment How to access health informa tion online Indication:BMI 27.0-27.9,adult Start:29-Nov-2017 Instruction Type:Patient Education How to access health informa tion online - Detail Indication:BMI 27.0-27.9,adult Start:29-Nov-2017 Instruction Type:Patient Education Patient Instructions Indication:BMI 27.0-27.9,adult Start:29-Nov-2017 Instruction Type:Provider Instructions for Treatment How to access health informa tion online Indication:Diabetes mellitus type II, controlled, with no complications (Renamed from Controlled type 2 diabetes mellitus without complication) Start:29-Nov-2017 Instruction Type:Patient Education Patient Instructions Indication:Diabetes mellitus type II, controlled, with no complications (Renamed from Controlled type 2 diabetes mellitus without complication) Start:29-Nov-2017 Instruction Type:Provider Instructions for Treatment cardiovascular counseling Indication:Coronary artery disease Start:11-Sep-2017 Instruction Type:Provider Instructions for Treatment How to access health informa tion online Indication:Non-smoker Start:11-Sep-2017 Instruction Type:Patient Education How to access health informa tion online - Detail Indication:Non-smoker Start:11-Sep-2017 Instruction Type:Patient Education Patient Instructions Indication:Non-smoker Start:11-Sep-2017 Instruction Type:Provider Instructions for Treatment How to access health informa tion online Indication:Non-smoker Start:28-Aug-2017 Instruction Type:Patient Education How to access health informa tion online - Detail Indication:Non-smoker Start:28-Aug-2017 Instruction Type:Patient Education Patient Instructions Indication:Non-smoker Start:28-Aug-2017 Instruction Type:Provider Instructions for Treatment How to access health informa tion online Indication:Diabetes mellitus type II, controlled, with no complications (Renamed from Controlled type 2 diabetes mellitus without complication) Start:25-Jan-2017 Instruction Type:Patient Education How to access health informa tion online - Detail Indication:Diabetes mellitus type II, controlled, with no complications (Renamed from Controlled type 2 diabetes mellitus without complication) Start:25-Jan-2017 Instruction Type:Patient Education Patient Instructions Indication:Diabetes mellitus type II, controlled, with no complications (Renamed from Controlled type 2 diabetes mellitus without complication) Start:25-Jan-2017 Instruction Type:Provider Instructions for Treatment How to access health informa tion online Indication:BMI 26.0-26.9,adult Start:04-Jul-2016 Instruction Type:Patient Education How to access health informa tion online - Detail Indication:BMI 26.0-26.9,adult Start:04-Jul-2016 Instruction Type:Patient Education Patient Instructions Indication:BMI 26.0-26.9,adult Start:04-Jul-2016 Instruction Type:Provider Instructions for Treatment How to access health informa tion online Indication:Diabetes mellitus type II, controlled, with no complications (Renamed from Controlled type 2 diabetes mellitus without complication) Start:22-Dec-2015 Instruction Type:Patient Education How to access health informa tion online - Detail Indication:Diabetes mellitus type II, controlled, with no complications (Renamed from Controlled type 2 diabetes mellitus without complication) Start:22-Dec-2015 Instruction Type:Patient Education Patient Instructions Indication:Diabetes mellitus type II, controlled, with no complications (Renamed from Controlled type 2 diabetes mellitus without complication) Start:22-Dec-2015 Instruction Type:Provider Instructions for Treatment How to access health informa tion online Indication:Other hyperlipidemia Start:28-Sep-2015 Instruction Type:Patient Education How to access health informa tion online - Detail Indication:Other hyperlipidemia Start:28-Sep-2015 Instruction Type:Patient Education Patient Instructions Indication:Other hyperlipidemia Start:28-Sep-2015 Instruction Type:Provider Instructions for Treatment Patient Instructions Indication:Impaired fasting glucose Start:14-May-2015 Instruction Type:Provider Instructions for Treatment Patient Instructions Indication:Impaired fasting glucose Start:25-Dec-2014 Instruction Type:Provider Instructions for Treatment Patient Instructions Indication:Impaired fasting glucose Start:20-Jul-2014 Instruction Type:Provider Instructions for Treatment Patient Instructions Indication:Hypotension Start:26-Dec-2013 Instruction Type:Provider Instructions for Treatment Patient Instructions Indication:Dizziness and giddiness Start:08-Dec-2013 Instruction Type:Provider Instructions for Treatment Patient Instructions Indication:Essential hypertension Start:04-Jul-2013 Instruction Type:Provider Instructions for Treatment Patient Instructions Indication:Infective otitis externa, unspecified laterality Start:06-Jun-2013 Instruction Type:Provider Instructions for Treatment Patient Instructions Indication:Impaired fasting glucose Start:26-Feb-2013 Instruction Type:Provider Instructions for Treatment obesity counseling Indication:BMI 30.0-30.9,adult Start:27-Sep-2012 Instruction Type:Provider Instructions for Treatment Patient Instructions Indication:Impaired fasting glucose Start:27-Sep-2012 Instruction Type:Provider Instructions for Treatment Patient Instructions Indication:Cellulitis and abscess of leg Start:23-Aug-2012 Instruction Type:Provider Instructions for Treatment Patient Instructions Indication:Cellulitis and abscess of leg Start:12-Jul-2012 Instruction Type:Provider Instructions for Treatment Patient Instructions Indication:Cellulitis and abscess of leg Start:05-Jul-2012 Instruction Type:Provider Instructions for Treatment Patient Instructions Indication:Cellulitis and abscess of leg Start:01-Jul-2012 Instruction Type:Provider Instructions for Treatment Patient Instructions Indication:Cellulitis and abscess of leg Start:28-Jun-2012 Instruction Type:Provider Instructions for Treatment Patient Instructions Indication:Cellulitis and abscess of leg Start:27-Jun-2012 Instruction Type:Provider Instructions for Treatment Patient Instructions Indication:Cellulitis and abscess of leg Start:26-Jun-2012 Instruction Type:Provider Instructions for Treatment Patient Instructions Indication:Cellulitis and abscess of leg Start:25-Jun-2012 Instruction Type:Provider Instructions for Treatment Patient Instructions Indication:Cellulitis and abscess of leg Start:24-Jun-2012 Instruction Type:Provider Instructions for Treatment Patient Instructions Indication:Cellulitis and abscess of leg Start:18-Jun-2012 Instruction Type:Provider Instructions for Treatment Patient Instructions Indication:Cellulitis and abscess of leg Start:17-Jun-2012 Instruction Type:Provider Instructions for Treatment Name Dates Details How to Access Health Informa tion Online using Patient Portal and [facility] Indication:Non-smoker Start:15-Jul-2020 Instruction Type:Patient Education Patient Instructions Indication:Non-smoker Start:15-Jul-2020 Instruction Type:Provider Instructions for Treatment How to access health informa tion online Indication:Non-smoker Start:01-Jul-2020 Instruction Type:Patient Education How to access health informa tion online - Detail Indication:Non-smoker Start:01-Jul-2020 Instruction Type:Patient Education Patient Instructions Indication:Non-smoker Start:01-Jul-2020 Instruction Type:Provider Instructions for Treatment How to access health informa tion online Indication:Non-smoker Start:04-Sep-2019 Instruction Type:Patient Education How to access health informa tion online - Detail Indication:Non-smoker Start:04-Sep-2019 Instruction Type:Patient Education Patient Instructions Indication:Non-smoker Start:04-Sep-2019 Instruction Type:Provider Instructions for Treatment How to access health informa tion online Indication:BMI 27.0-27.9,adult Start:29-Nov-2017 Instruction Type:Patient Education How to access health informa tion online - Detail Indication:BMI 27.0-27.9,adult Start:29-Nov-2017 Instruction Type:Patient Education Patient Instructions Indication:BMI 27.0-27.9,adult Start:29-Nov-2017 Instruction Type:Provider Instructions for Treatment How to access health informa tion online Indication:Diabetes mellitus type II, controlled, with no complications (Renamed from Controlled type 2 diabetes mellitus without complication) Start:29-Nov-2017 Instruction Type:Patient Education Patient Instructions Indication:Diabetes mellitus type II, controlled, with no complications (Renamed from Controlled type 2 diabetes mellitus without complication) Start:29-Nov-2017 Instruction Type:Provider Instructions for Treatment cardiovascular counseling Indication:Coronary artery disease Start:11-Sep-2017 Instruction Type:Provider Instructions for Treatment How to access health informa tion online Indication:Non-smoker Start:11-Sep-2017 Instruction Type:Patient Education How to access health informa tion online - Detail Indication:Non-smoker Start:11-Sep-2017 Instruction Type:Patient Education Patient Instructions Indication:Non-smoker Start:11-Sep-2017 Instruction Type:Provider Instructions for Treatment How to access health informa tion online Indication:Non-smoker Start:28-Aug-2017 Instruction Type:Patient Education How to access health informa tion online - Detail Indication:Non-smoker Start:28-Aug-2017 Instruction Type:Patient Education Patient Instructions Indication:Non-smoker Start:28-Aug-2017 Instruction Type:Provider Instructions for Treatment How to access health informa tion online Indication:Diabetes mellitus type II, controlled, with no complications (Renamed from Controlled type 2 diabetes mellitus without complication) Start:25-Jan-2017 Instruction Type:Patient Education How to access health informa tion online - Detail Indication:Diabetes mellitus type II, controlled, with no complications (Renamed from Controlled type 2 diabetes mellitus without complication) Start:25-Jan-2017 Instruction Type:Patient Education Patient Instructions Indication:Diabetes mellitus type II, controlled, with no complications (Renamed from Controlled type 2 diabetes mellitus without complication) Start:25-Jan-2017 Instruction Type:Provider Instructions for Treatment How to access health informa tion online Indication:BMI 26.0-26.9,adult Start:04-Jul-2016 Instruction Type:Patient Education How to access health informa tion online - Detail Indication:BMI 26.0-26.9,adult Start:04-Jul-2016 Instruction Type:Patient Education Patient Instructions Indication:BMI 26.0-26.9,adult Start:04-Jul-2016 Instruction Type:Provider Instructions for Treatment How to access health informa tion online Indication:Diabetes mellitus type II, controlled, with no complications (Renamed from Controlled type 2 diabetes mellitus without complication) Start:22-Dec-2015 Instruction Type:Patient Education How to access health informa tion online - Detail Indication:Diabetes mellitus type II, controlled, with no complications (Renamed from Controlled type 2 diabetes mellitus without complication) Start:22-Dec-2015 Instruction Type:Patient Education Patient Instructions Indication:Diabetes mellitus type II, controlled, with no complications (Renamed from Controlled type 2 diabetes mellitus without complication) Start:22-Dec-2015 Instruction Type:Provider Instructions for Treatment How to access health informa tion online Indication:Other hyperlipidemia Start:28-Sep-2015 Instruction Type:Patient Education How to access [facility] online - Detail Indication:Other hyperlipidemia Start:28-Sep-2015 Instruction Type:Patient Education Patient Instructions Indication:Other hyperlipidemia Start:28-Sep-2015 Instruction Type:Provider Instructions for Treatment Patient Instructions Indication:Impaired fasting glucose Start:14-May-2015 Instruction Type:Provider Instructions for Treatment Patient Instructions Indication:Impaired fasting glucose Start:25-Dec-2014 Instruction Type:Provider Instructions for Treatment Patient Instructions Indication:Impaired fasting glucose Start:20-Jul-2014 Instruction Type:Provider Instructions for Treatment Patient Instructions Indication:Hypotension Start:26-Dec-2013 Instruction Type:Provider Instructions for Treatment Patient Instructions Indication:Dizziness and giddiness Start:08-Dec-2013 Instruction Type:Provider Instructions for Treatment Patient Instructions Indication:Essential hypertension Start:04-Jul-2013 Instruction Type:Provider Instructions for Treatment Patient Instructions Indication:Infective otitis externa, unspecified laterality Start:06-Jun-2013 Instruction Type:Provider Instructions for Treatment Patient Instructions Indication:Impaired fasting glucose Start:26-Feb-2013 Instruction Type:Provider Instructions for Treatment obesity counseling Indication:BMI 30.0-30.9,adult Start:27-Sep-2012 Instruction Type:Provider Instructions for Treatment Patient Instructions Indication:Impaired fasting glucose Start:27-Sep-2012 Instruction Type:Provider Instructions for Treatment Patient Instructions Indication:Cellulitis and abscess of leg Start:23-Aug-2012 Instruction Type:Provider Instructions for Treatment Patient Instructions Indication:Cellulitis and abscess of leg Start:12-Jul-2012 Instruction Type:Provider Instructions for Treatment Patient Instructions Indication:Cellulitis and abscess of leg Start:05-Jul-2012 Instruction Type:Provider Instructions for Treatment Patient Instructions Indication:Cellulitis and abscess of leg Start:01-Jul-2012 Instruction Type:Provider Instructions for Treatment Patient Instructions Indication:Cellulitis and abscess of leg Start:28-Jun-2012 Instruction Type:Provider Instructions for Treatment Patient Instructions Indication:Cellulitis and abscess of leg Start:27-Jun-2012 Instruction Type:Provider Instructions for Treatment Patient Instructions Indication:Cellulitis and abscess of leg Start:26-Jun-2012 Instruction Type:Provider Instructions for Treatment Patient Instructions Indication:Cellulitis and abscess of leg Start:25-Jun-2012 Instruction Type:Provider Instructions for Treatment Patient Instructions Indication:Cellulitis and abscess of leg Start:24-Jun-2012 Instruction Type:Provider Instructions for Treatment Patient Instructions Indication:Cellulitis and abscess of leg Start:18-Jun-2012 Instruction Type:Provider Instructions for Treatment Patient Instructions Indication:Cellulitis and abscess of leg Start:17-Jun-2012 Instruction Type:Provider Instructions for Treatment Name Dates Details cardiovascular counseling Indication:Coronary artery disease Start:15-Jul-2020 Instruction Type:Provider Instructions for Treatment How to Access Health Informa tion Online using Patient Portal and [employer] Apps Indication:Non-smoker Start:15-Jul-2020 Instruction Type:Patient Education Patient Instructions Indication:Non-smoker Start:15-Jul-2020 Instruction Type:Provider Instructions for Treatment How to access health informa tion online Indication:Non-smoker Start:01-Jul-2020 Instruction Type:Patient Education How to access health informa tion online - Detail Indication:Non-smoker Start:01-Jul-2020 Instruction Type:Patient Education Patient Instructions Indication:Non-smoker Start:01-Jul-2020 Instruction Type:Provider Instructions for Treatment How to access health informa tion online Indication:Non-smoker Start:04-Sep-2019 Instruction Type:Patient Education How to access health informa tion online - Detail Indication:Non-smoker Start:04-Sep-2019 Instruction Type:Patient Education Patient Instructions Indication:Non-smoker Start:04-Sep-2019 Instruction Type:Provider Instructions for Treatment How to access health informa tion online Indication:BMI 27.0-27.9,adult Start:29-Nov-2017 Instruction Type:Patient Education How to access health informa tion online - Detail Indication:BMI 27.0-27.9,adult Start:29-Nov-2017 Instruction Type:Patient Education Patient Instructions Indication:BMI 27.0-27.9,adult Start:29-Nov-2017 Instruction Type:Provider Instructions for Treatment How to access health informa tion online Indication:Diabetes mellitus type II, controlled, with no complications (Renamed from Controlled type 2 diabetes mellitus without complication) Start:29-Nov-2017 Instruction Type:Patient Education Patient Instructions Indication:Diabetes mellitus type II, controlled, with no complications (Renamed from Controlled type 2 diabetes mellitus without complication) Start:29-Nov-2017 Instruction Type:Provider Instructions for Treatment cardiovascular counseling Indication:Coronary artery disease Start:11-Sep-2017 Instruction Type:Provider Instructions for Treatment How to access health informa tion online Indication:Non-smoker Start:11-Sep-2017 Instruction Type:Patient Education How to access health informa tion online - Detail Indication:Non-smoker Start:11-Sep-2017 Instruction Type:Patient Education Patient Instructions Indication:Non-smoker Start:11-Sep-2017 Instruction Type:Provider Instructions for Treatment How to access health informa tion online Indication:Non-smoker Start:28-Aug-2017 Instruction Type:Patient Education How to access health informa tion online - Detail Indication:Non-smoker Start:28-Aug-2017 Instruction Type:Patient Education Patient Instructions Indication:Non-smoker Start:28-Aug-2017 Instruction Type:Provider Instructions for Treatment How to access health informa tion online Indication:Diabetes mellitus type II, controlled, with no complications (Renamed from Controlled type 2 diabetes mellitus without complication) Start:25-Jan-2017 Instruction Type:Patient Education How to access health informa tion online - Detail Indication:Diabetes mellitus type II, controlled, with no complications (Renamed from Controlled type 2 diabetes mellitus without complication) Start:25-Jan-2017 Instruction Type:Patient Education Patient Instructions Indication:Diabetes mellitus type II, controlled, with no complications (Renamed from Controlled type 2 diabetes mellitus without complication) Start:25-Jan-2017 Instruction Type:Provider Instructions for Treatment How to access health informa tion online Indication:BMI 26.0-26.9,adult Start:04-Jul-2016 Instruction Type:Patient Education How to access health informa tion online - Detail Indication:BMI 26.0-26.9,adult Start:04-Jul-2016 Instruction Type:Patient Education Patient Instructions Indication:BMI 26.0-26.9,adult Start:04-Jul-2016 Instruction Type:Provider Instructions for Treatment How to access health informa tion online Indication:Diabetes mellitus type II, controlled, with no complications (Renamed from Controlled type 2 diabetes mellitus without complication) Start:22-Dec-2015 Instruction Type:Patient Education How to access health informa tion online - Detail Indication:Diabetes mellitus type II, controlled, with no complications (Renamed from Controlled type 2 diabetes mellitus without complication) Start:22-Dec-2015 Instruction Type:Patient Education Patient Instructions Indication:Diabetes mellitus type II, controlled, with no complications (Renamed from Controlled type 2 diabetes mellitus without complication) Start:22-Dec-2015 Instruction Type:Provider Instructions for Treatment How to access health informa tion online Indication:Other hyperlipidemia Start:28-Sep-2015 Instruction Type:Patient Education How to access [facility] online - Detail Indication:Other hyperlipidemia Start:28-Sep-2015 Instruction Type:Patient Education Patient Instructions Indication:Other hyperlipidemia Start:28-Sep-2015 Instruction Type:Provider Instructions for Treatment Patient Instructions Indication:Impaired fasting glucose Start:14-May-2015 Instruction Type:Provider Instructions for Treatment Patient Instructions Indication:Impaired fasting glucose Start:25-Dec-2014 Instruction Type:Provider Instructions for Treatment Patient Instructions Indication:Impaired fasting glucose Start:20-Jul-2014 Instruction Type:Provider Instructions for Treatment Patient Instructions Indication:Hypotension Start:26-Dec-2013 Instruction Type:Provider Instructions for Treatment Patient Instructions Indication:Dizziness and giddiness Start:08-Dec-2013 Instruction Type:Provider Instructions for Treatment Patient Instructions Indication:Essential hypertension Start:04-Jul-2013 Instruction Type:Provider Instructions for Treatment Patient Instructions Indication:Infective otitis externa, unspecified laterality Start:06-Jun-2013 Instruction Type:Provider Instructions for Treatment Patient Instructions Indication:Impaired fasting glucose Start:26-Feb-2013 Instruction Type:Provider Instructions for Treatment obesity counseling Indication:BMI 30.0-30.9,adult Start:27-Sep-2012 Instruction Type:Provider Instructions for Treatment Patient Instructions Indication:Impaired fasting glucose Start:27-Sep-2012 Instruction Type:Provider Instructions for Treatment Patient Instructions Indication:Cellulitis and abscess of leg Start:23-Aug-2012 Instruction Type:Provider Instructions for Treatment Patient Instructions Indication:Cellulitis and abscess of leg Start:12-Jul-2012 Instruction Type:Provider Instructions for Treatment Patient Instructions Indication:Cellulitis and abscess of leg Start:05-Jul-2012 Instruction Type:Provider Instructions for Treatment Patient Instructions Indication:Cellulitis and abscess of leg Start:01-Jul-2012 Instruction Type:Provider Instructions for Treatment Patient Instructions Indication:Cellulitis and abscess of leg Start:28-Jun-2012 Instruction Type:Provider Instructions for Treatment Patient Instructions Indication:Cellulitis and abscess of leg Start:27-Jun-2012 Instruction Type:Provider Instructions for Treatment Patient Instructions Indication:Cellulitis and abscess of leg Start:26-Jun-2012 Instruction Type:Provider Instructions for Treatment Patient Instructions Indication:Cellulitis and abscess of leg Start:25-Jun-2012 Instruction Type:Provider Instructions for Treatment Patient Instructions Indication:Cellulitis and abscess of leg Start:24-Jun-2012 Instruction Type:Provider Instructions for Treatment Patient Instructions Indication:Cellulitis and abscess of leg Start:18-Jun-2012 Instruction Type:Provider Instructions for Treatment Patient Instructions Indication:Cellulitis and abscess of leg Start:17-Jun-2012 Instruction Type:Provider Instructions for Treatment Name Dates Details cardiovascular counseling Indication:Coronary artery disease Start:15-Jul-2020 Instruction Type:Provider Instructions for Treatment How to Access Health Informa tion Online using Patient Portal and [employer] Apps Indication:Non-smoker Start:15-Jul-2020 Instruction Type:Patient Education Patient Instructions Indication:Non-smoker Start:15-Jul-2020 Instruction Type:Provider Instructions for Treatment How to access health informa tion online Indication:Non-smoker Start:01-Jul-2020 Instruction Type:Patient Education How to access health informa tion online - Detail Indication:Non-smoker Start:01-Jul-2020 Instruction Type:Patient Education Patient Instructions Indication:Non-smoker Start:01-Jul-2020 Instruction Type:Provider Instructions for Treatment How to access health informa tion online Indication:Non-smoker Start:04-Sep-2019 Instruction Type:Patient Education How to access health informa tion online - Detail Indication:Non-smoker Start:04-Sep-2019 Instruction Type:Patient Education Patient Instructions Indication:Non-smoker Start:04-Sep-2019 Instruction Type:Provider Instructions for Treatment How to access health informa tion online Indication:BMI 27.0-27.9,adult Start:29-Nov-2017 Instruction Type:Patient Education How to access health informa tion online - Detail Indication:BMI 27.0-27.9,adult Start:29-Nov-2017 Instruction Type:Patient Education Patient Instructions Indication:BMI 27.0-27.9,adult Start:29-Nov-2017 Instruction Type:Provider Instructions for Treatment How to access health informa tion online Indication:Diabetes mellitus type II, controlled, with no complications (Renamed from Controlled type 2 diabetes mellitus without complication) Start:29-Nov-2017 Instruction Type:Patient Education Patient Instructions Indication:Diabetes mellitus type II, controlled, with no complications (Renamed from Controlled type 2 diabetes mellitus without complication) Start:29-Nov-2017 Instruction Type:Provider Instructions for Treatment cardiovascular counseling Indication:Coronary artery disease Start:11-Sep-2017 Instruction Type:Provider Instructions for Treatment How to access health informa tion online Indication:Non-smoker Start:11-Sep-2017 Instruction Type:Patient Education How to access health informa tion online - Detail Indication:Non-smoker Start:11-Sep-2017 Instruction Type:Patient Education Patient Instructions Indication:Non-smoker Start:11-Sep-2017 Instruction Type:Provider Instructions for Treatment How to access health informa tion online Indication:Non-smoker Start:28-Aug-2017 Instruction Type:Patient Education How to access health informa tion online - Detail Indication:Non-smoker Start:28-Aug-2017 Instruction Type:Patient Education Patient Instructions Indication:Non-smoker Start:28-Aug-2017 Instruction Type:Provider Instructions for Treatment How to access health informa tion online Indication:Diabetes mellitus type II, controlled, with no complications (Renamed from Controlled type 2 diabetes mellitus without complication) Start:25-Jan-2017 Instruction Type:Patient Education How to access health informa tion online - Detail Indication:Diabetes mellitus type II, controlled, with no complications (Renamed from Controlled type 2 diabetes mellitus without complication) Start:25-Jan-2017 Instruction Type:Patient Education Patient Instructions Indication:Diabetes mellitus type II, controlled, with no complications (Renamed from Controlled type 2 diabetes mellitus without complication) Start:25-Jan-2017 Instruction Type:Provider Instructions for Treatment How to access health informa tion online Indication:BMI 26.0-26.9,adult Start:04-Jul-2016 Instruction Type:Patient Education How to access health informa tion online - Detail Indication:BMI 26.0-26.9,adult Start:04-Jul-2016 Instruction Type:Patient Education Patient Instructions Indication:BMI 26.0-26.9,adult Start:04-Jul-2016 Instruction Type:Provider Instructions for Treatment How to access health informa tion online Indication:Diabetes mellitus type II, controlled, with no complications (Renamed from Controlled type 2 diabetes mellitus without complication) Start:22-Dec-2015 Instruction Type:Patient Education How to access health informa tion online - Detail Indication:Diabetes mellitus type II, controlled, with no complications (Renamed from Controlled type 2 diabetes mellitus without complication) Start:22-Dec-2015 Instruction Type:Patient Education Patient Instructions Indication:Diabetes mellitus type II, controlled, with no complications (Renamed from Controlled type 2 diabetes mellitus without complication) Start:22-Dec-2015 Instruction Type:Provider Instructions for Treatment How to access health informa tion online Indication:Other hyperlipidemia Start:28-Sep-2015 Instruction Type:Patient Education How to access [facility] online - Detail Indication:Other hyperlipidemia Start:28-Sep-2015 Instruction Type:Patient Education Patient Instructions Indication:Other hyperlipidemia Start:28-Sep-2015 Instruction Type:Provider Instructions for Treatment Patient Instructions Indication:Impaired fasting glucose Start:14-May-2015 Instruction Type:Provider Instructions for Treatment Patient Instructions Indication:Impaired fasting glucose Start:25-Dec-2014 Instruction Type:Provider Instructions for Treatment Patient Instructions Indication:Impaired fasting glucose Start:20-Jul-2014 Instruction Type:Provider Instructions for Treatment Patient Instructions Indication:Hypotension Start:26-Dec-2013 Instruction Type:Provider Instructions for Treatment Patient Instructions Indication:Dizziness and giddiness Start:08-Dec-2013 Instruction Type:Provider Instructions for Treatment Patient Instructions Indication:Essential hypertension Start:04-Jul-2013 Instruction Type:Provider Instructions for Treatment Patient Instructions Indication:Infective otitis externa, unspecified laterality Start:06-Jun-2013 Instruction Type:Provider Instructions for Treatment Patient Instructions Indication:Impaired fasting glucose Start:26-Feb-2013 Instruction Type:Provider Instructions for Treatment obesity counseling Indication:BMI 30.0-30.9,adult Start:27-Sep-2012 Instruction Type:Provider Instructions for Treatment Patient Instructions Indication:Impaired fasting glucose Start:27-Sep-2012 Instruction Type:Provider Instructions for Treatment Patient Instructions Indication:Cellulitis and abscess of leg Start:23-Aug-2012 Instruction Type:Provider Instructions for Treatment Patient Instructions Indication:Cellulitis and abscess of leg Start:12-Jul-2012 Instruction Type:Provider Instructions for Treatment Patient Instructions Indication:Cellulitis and abscess of leg Start:05-Jul-2012 Instruction Type:Provider Instructions for Treatment Patient Instructions Indication:Cellulitis and abscess of leg Start:01-Jul-2012 Instruction Type:Provider Instructions for Treatment Patient Instructions Indication:Cellulitis and abscess of leg Start:28-Jun-2012 Instruction Type:Provider Instructions for Treatment Patient Instructions Indication:Cellulitis and abscess of leg Start:27-Jun-2012 Instruction Type:Provider Instructions for Treatment Patient Instructions Indication:Cellulitis and abscess of leg Start:26-Jun-2012 Instruction Type:Provider Instructions for Treatment Patient Instructions Indication:Cellulitis and abscess of leg Start:25-Jun-2012 Instruction Type:Provider Instructions for Treatment Patient Instructions Indication:Cellulitis and abscess of leg Start:24-Jun-2012 Instruction Type:Provider Instructions for Treatment Patient Instructions Indication:Cellulitis and abscess of leg Start:18-Jun-2012 Instruction Type:Provider Instructions for Treatment Patient Instructions Indication:Cellulitis and abscess of leg Start:17-Jun-2012 Instruction Type:Provider Instructions for Treatment Name Dates Details cardiovascular counseling Indication:Coronary artery disease Start:15-Jul-2020 Instruction Type:Provider Instructions for Treatment How to Access Health Informa tion Online using Patient Portal and [employer] Apps Indication:Non-smoker Start:15-Jul-2020 Instruction Type:Patient Education Patient Instructions Indication:Non-smoker Start:15-Jul-2020 Instruction Type:Provider Instructions for Treatment How to access health informa tion online Indication:Non-smoker Start:01-Jul-2020 Instruction Type:Patient Education How to access health informa tion online - Detail Indication:Non-smoker Start:01-Jul-2020 Instruction Type:Patient Education Patient Instructions Indication:Non-smoker Start:01-Jul-2020 Instruction Type:Provider Instructions for Treatment How to access health informa tion online Indication:Non-smoker Start:04-Sep-2019 Instruction Type:Patient Education How to access health informa tion online - Detail Indication:Non-smoker Start:04-Sep-2019 Instruction Type:Patient Education Patient Instructions Indication:Non-smoker Start:04-Sep-2019 Instruction Type:Provider Instructions for Treatment How to access health informa tion online Indication:BMI 27.0-27.9,adult Start:29-Nov-2017 Instruction Type:Patient Education How to access health informa tion online - Detail Indication:BMI 27.0-27.9,adult Start:29-Nov-2017 Instruction Type:Patient Education Patient Instructions Indication:BMI 27.0-27.9,adult Start:29-Nov-2017 Instruction Type:Provider Instructions for Treatment How to access health informa tion online Indication:Diabetes mellitus type II, controlled, with no complications (Renamed from Controlled type 2 diabetes mellitus without complication) Start:29-Nov-2017 Instruction Type:Patient Education Patient Instructions Indication:Diabetes mellitus type II, controlled, with no complications (Renamed from Controlled type 2 diabetes mellitus without complication) Start:29-Nov-2017 Instruction Type:Provider Instructions for Treatment cardiovascular counseling Indication:Coronary artery disease Start:11-Sep-2017 Instruction Type:Provider Instructions for Treatment How to access health informa tion online Indication:Non-smoker Start:11-Sep-2017 Instruction Type:Patient Education How to access health informa tion online - Detail Indication:Non-smoker Start:11-Sep-2017 Instruction Type:Patient Education Patient Instructions Indication:Non-smoker Start:11-Sep-2017 Instruction Type:Provider Instructions for Treatment How to access health informa tion online Indication:Non-smoker Start:28-Aug-2017 Instruction Type:Patient Education How to access health informa tion online - Detail Indication:Non-smoker Start:28-Aug-2017 Instruction Type:Patient Education Patient Instructions Indication:Non-smoker Start:28-Aug-2017 Instruction Type:Provider Instructions for Treatment How to access health informa tion online Indication:Diabetes mellitus type II, controlled, with no complications (Renamed from Controlled type 2 diabetes mellitus without complication) Start:25-Jan-2017 Instruction Type:Patient Education How to access health informa tion online - Detail Indication:Diabetes mellitus type II, controlled, with no complications (Renamed from Controlled type 2 diabetes mellitus without complication) Start:25-Jan-2017 Instruction Type:Patient Education Patient Instructions Indication:Diabetes mellitus type II, controlled, with no complications (Renamed from Controlled type 2 diabetes mellitus without complication) Start:25-Jan-2017 Instruction Type:Provider Instructions for Treatment How to access health informa tion online Indication:BMI 26.0-26.9,adult Start:04-Jul-2016 Instruction Type:Patient Education How to access health informa tion online - Detail Indication:BMI 26.0-26.9,adult Start:04-Jul-2016 Instruction Type:Patient Education Patient Instructions Indication:BMI 26.0-26.9,adult Start:04-Jul-2016 Instruction Type:Provider Instructions for Treatment How to access health informa tion online Indication:Diabetes mellitus type II, controlled, with no complications (Renamed from Controlled type 2 diabetes mellitus without complication) Start:22-Dec-2015 Instruction Type:Patient Education How to access health informa tion online - Detail Indication:Diabetes mellitus type II, controlled, with no complications (Renamed from Controlled type 2 diabetes mellitus without complication) Start:22-Dec-2015 Instruction Type:Patient Education Patient Instructions Indication:Diabetes mellitus type II, controlled, with no complications (Renamed from Controlled type 2 diabetes mellitus without complication) Start:22-Dec-2015 Instruction Type:Provider Instructions for Treatment How to access health informa tion online Indication:Other hyperlipidemia Start:28-Sep-2015 Instruction Type:Patient Education How to access [employer] - Detail Indication:Other hyperlipidemia Start:28-Sep-2015 Instruction Type:Patient Education Patient Instructions Indication:Other hyperlipidemia Start:28-Sep-2015 Instruction Type:Provider Instructions for Treatment Patient Instructions Indication:Impaired fasting glucose Start:14-May-2015 Instruction Type:Provider Instructions for Treatment Patient Instructions Indication:Impaired fasting glucose Start:25-Dec-2014 Instruction Type:Provider Instructions for Treatment Patient Instructions Indication:Impaired fasting glucose Start:20-Jul-2014 Instruction Type:Provider Instructions for Treatment Patient Instructions Indication:Hypotension Start:26-Dec-2013 Instruction Type:Provider Instructions for Treatment Patient Instructions Indication:Dizziness and giddiness Start:08-Dec-2013 Instruction Type:Provider Instructions for Treatment Patient Instructions Indication:Essential hypertension Start:04-Jul-2013 Instruction Type:Provider Instructions for Treatment Patient Instructions Indication:Infective otitis externa, unspecified laterality Start:06-Jun-2013 Instruction Type:Provider Instructions for Treatment Patient Instructions Indication:Impaired fasting glucose Start:26-Feb-2013 Instruction Type:Provider Instructions for Treatment obesity counseling Indication:BMI 30.0-30.9,adult Start:27-Sep-2012 Instruction Type:Provider Instructions for Treatment Patient Instructions Indication:Impaired fasting glucose Start:27-Sep-2012 Instruction Type:Provider Instructions for Treatment Patient Instructions Indication:Cellulitis and abscess of leg Start:23-Aug-2012 Instruction Type:Provider Instructions for Treatment Patient Instructions Indication:Cellulitis and abscess of leg Start:12-Jul-2012 Instruction Type:Provider Instructions for Treatment Patient Instructions Indication:Cellulitis and abscess of leg Start:05-Jul-2012 Instruction Type:Provider Instructions for Treatment Patient Instructions Indication:Cellulitis and abscess of leg Start:01-Jul-2012 Instruction Type:Provider Instructions for Treatment Patient Instructions Indication:Cellulitis and abscess of leg Start:28-Jun-2012 Instruction Type:Provider Instructions for Treatment Patient Instructions Indication:Cellulitis and abscess of leg Start:27-Jun-2012 Instruction Type:Provider Instructions for Treatment Patient Instructions Indication:Cellulitis and abscess of leg Start:26-Jun-2012 Instruction Type:Provider Instructions for Treatment Patient Instructions Indication:Cellulitis and abscess of leg Start:25-Jun-2012 Instruction Type:Provider Instructions for Treatment Patient Instructions Indication:Cellulitis and abscess of leg Start:24-Jun-2012 Instruction Type:Provider Instructions for Treatment Patient Instructions Indication:Cellulitis and abscess of leg Start:18-Jun-2012 Instruction Type:Provider Instructions for Treatment Patient Instructions Indication:Cellulitis and abscess of leg Start:17-Jun-2012 Instruction Type:Provider Instructions for Treatment Name Dates Details How to access health informa tion online Indication:BMI 27.0-27.9,adult Start:29-Nov-2017 Instruction Type:Patient Education How to access health informa tion online - Detail Indication:BMI 27.0-27.9,adult Start:29-Nov-2017 Instruction Type:Patient Education Patient Instructions Indication:BMI 27.0-27.9,adult Start:29-Nov-2017 Instruction Type:Provider Instructions for Treatment How to access health informa tion online Indication:Diabetes mellitus type II, controlled, with no complications (Renamed from Controlled type 2 diabetes mellitus without complication) Start:29-Nov-2017 Instruction Type:Patient Education Patient Instructions Indication:Diabetes mellitus type II, controlled, with no complications (Renamed from Controlled type 2 diabetes mellitus without complication) Start:29-Nov-2017 Instruction Type:Provider Instructions for Treatment cardiovascular counseling Indication:Coronary artery disease Start:11-Sep-2017 Instruction Type:Provider Instructions for Treatment How to access health informa tion online Indication:Non-smoker Start:11-Sep-2017 Instruction Type:Patient Education How to access health informa tion online - Detail Indication:Non-smoker Start:11-Sep-2017 Instruction Type:Patient Education Patient Instructions Indication:Non-smoker Start:11-Sep-2017 Instruction Type:Provider Instructions for Treatment How to access health informa tion online Indication:Non-smoker Start:28-Aug-2017 Instruction Type:Patient Education How to access health informa tion online - Detail Indication:Non-smoker Start:28-Aug-2017 Instruction Type:Patient Education Patient Instructions Indication:Non-smoker Start:28-Aug-2017 Instruction Type:Provider Instructions for Treatment How to access health informa tion online Indication:Diabetes mellitus type II, controlled, with no complications (Renamed from Controlled type 2 diabetes mellitus without complication) Start:25-Jan-2017 Instruction Type:Patient Education How to access health informa tion online - Detail Indication:Diabetes mellitus type II, controlled, with no complications (Renamed from Controlled type 2 diabetes mellitus without complication) Start:25-Jan-2017 Instruction Type:Patient Education Patient Instructions Indication:Diabetes mellitus type II, controlled, with no complications (Renamed from Controlled type 2 diabetes mellitus without complication) Start:25-Jan-2017 Instruction Type:Provider Instructions for Treatment How to access health informa tion online Indication:BMI 26.0-26.9,adult Start:04-Jul-2016 Instruction Type:Patient Education How to access health informa tion online - Detail Indication:BMI 26.0-26.9,adult Start:04-Jul-2016 Instruction Type:Patient Education Patient Instructions Indication:BMI 26.0-26.9,adult Start:04-Jul-2016 Instruction Type:Provider Instructions for Treatment How to access health informa tion online Indication:Diabetes mellitus type II, controlled, with no complications (Renamed from Controlled type 2 diabetes mellitus without complication) Start:22-Dec-2015 Instruction Type:Patient Education How to access health informa tion online - Detail Indication:Diabetes mellitus type II, controlled, with no complications (Renamed from Controlled type 2 diabetes mellitus without complication) Start:22-Dec-2015 Instruction Type:Patient Education Patient Instructions Indication:Diabetes mellitus type II, controlled, with no complications (Renamed from Controlled type 2 diabetes mellitus without complication) Start:22-Dec-2015 Instruction Type:Provider Instructions for Treatment How to access health informa tion online Indication:Other hyperlipidemia Start:28-Sep-2015 Instruction Type:Patient Education How to access health informa tion online - Detail Indication:Other hyperlipidemia Start:28-Sep-2015 Instruction Type:Patient Education Patient Instructions Indication:Other hyperlipidemia Start:28-Sep-2015 Instruction Type:Provider Instructions for Treatment Patient Instructions Indication:Impaired fasting glucose Start:14-May-2015 Instruction Type:Provider Instructions for Treatment Patient Instructions Indication:Impaired fasting glucose Start:25-Dec-2014 Instruction Type:Provider Instructions for Treatment Patient Instructions Indication:Impaired fasting glucose Start:20-Jul-2014 Instruction Type:Provider Instructions for Treatment Patient Instructions Indication:Hypotension Start:26-Dec-2013 Instruction Type:Provider Instructions for Treatment Patient Instructions Indication:Dizziness and giddiness Start:08-Dec-2013 Instruction Type:Provider Instructions for Treatment Patient Instructions Indication:Essential hypertension Start:04-Jul-2013 Instruction Type:Provider Instructions for Treatment Patient Instructions Indication:Infective otitis externa, unspecified laterality Start:06-Jun-2013 Instruction Type:Provider Instructions for Treatment Patient Instructions Indication:Impaired fasting glucose Start:26-Feb-2013 Instruction Type:Provider Instructions for Treatment obesity counseling Indication:BMI 30.0-30.9,adult Start:27-Sep-2012 Instruction Type:Provider Instructions for Treatment Patient Instructions Indication:Impaired fasting glucose Start:27-Sep-2012 Instruction Type:Provider Instructions for Treatment Patient Instructions Indication:Cellulitis and abscess of leg Start:23-Aug-2012 Instruction Type:Provider Instructions for Treatment Patient Instructions Indication:Cellulitis and abscess of leg Start:12-Jul-2012 Instruction Type:Provider Instructions for Treatment Patient Instructions Indication:Cellulitis and abscess of leg Start:05-Jul-2012 Instruction Type:Provider Instructions for Treatment Patient Instructions Indication:Cellulitis and abscess of leg Start:01-Jul-2012 Instruction Type:Provider Instructions for Treatment Patient Instructions Indication:Cellulitis and abscess of leg Start:28-Jun-2012 Instruction Type:Provider Instructions for Treatment Patient Instructions Indication:Cellulitis and abscess of leg Start:27-Jun-2012 Instruction Type:Provider Instructions for Treatment Patient Instructions Indication:Cellulitis and abscess of leg Start:26-Jun-2012 Instruction Type:Provider Instructions for Treatment Patient Instructions Indication:Cellulitis and abscess of leg Start:25-Jun-2012 Instruction Type:Provider Instructions for Treatment Patient Instructions Indication:Cellulitis and abscess of leg Start:24-Jun-2012 Instruction Type:Provider Instructions for Treatment Patient Instructions Indication:Cellulitis and abscess of leg Start:18-Jun-2012 Instruction Type:Provider Instructions for Treatment Patient Instructions Indication:Cellulitis and abscess of leg Start:17-Jun-2012 Instruction Type:Provider Instructions for Treatment Chief Complaint and Reason for Visit Chief Complaint 3 mos remote Micra V R f/u 8 m fu Cough CAD Amb Documentation Amb Documentation Reason for Visit Sick sinus syndrome History of placement of leadless cardiac pacemaker Persistent atrial fibrillation 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 August 2:14pm Pacer Check Remote December 17, 2024 1:33p m Reason for Visit Admit Date Sick sinus syndrome September 19, 2024 2:14pm Chronic diastolic (congestive) heart hanny lure September 19, 2024 2:14pm Essential (primary) hypertension 2024 2:14pm Nonrheumatic aortic (valve) stenosis wit h insufficiency September 19, 2024 2:14pm Persistent atrial fibrillation September 19, 2024 2:14pm Pure hypercholesterolemia September 19, 2024 2:14pm H/O coronary artery bypass surgery 2024 2:14pm Chief Complaint Admit Date Pacer Check Remote December 17, 2024 1:33p m NEEDS ORDER February 03, 2025 10:26 am Chief Complaint Admit Date Pacer Check Remote December 17, 2024 1:33p m NEEDS ORDER February 03, 2025 10:26 am 5 M FU February 19, 2025 10:4 6am Reason for Visit Admit Date Sick sinus syndrome February 19, 2025 10:4 6am Chronic diastolic (congestive) heart hanny lure February 19, 2025 10:46am Essential (primary) hypertension February 192024 10:46am Nonrheumatic aortic (valve) stenosis wit h insufficiency February 19, 2025 10:46am Persistent atrial fibrillation January 10:46am Pure hypercholesterolemia February 19 10:46am H/O coronary artery bypass surgery February 19, 2025 10:46am Chief Complaint Admit Date Pacer Check Remote December 17, 2024 1:33p m NEEDS ORDER February 03, 2025 10:26 am 5 M FU February 19, 2025 10:4 6am Pacer Check Remote March 13, 2025 11 :36pm Chief Complaint Admit Date Pacer Check Remote December 17, 2024 1:33p m NEEDS ORDER February 03, 2025 10:26 am 5 M FU February 19, 2025 10:4 6am Pacer Check Remote March 13, 2025 11 :36pm 4 W FU March 25, 2025 11 :29am Reason for Visit Admit Date Sick sinus syndrome February 19, 2025 10:4 6am Chronic diastolic (congestive) heart hanny lure February 19, 2025 10:46am Essential (primary) hypertension February 192024 10:46am Nonrheumatic aortic (valve) stenosis wit h insufficiency February 19, 2025 10:46am Persistent atrial fibrillation January 10:46am Pure hypercholesterolemia February 19 10:46am H/O coronary artery bypass surgery February 19, 2025 10:46am Sick sinus syndrome March 25, 2025 11 :29am Chronic diastolic (congestive) heart hanny lure March 25, 2025 11:29am Essential (primary) hypertension March 25, 2025 11:29am Nonrheumatic aortic (valve) stenosis wit h insufficiency March 25, 2025 11:29am Persistent atrial fibrillation March 252024 11:29am Pure hypercholesterolemia March 25, 2 025 11:29am H/O coronary artery bypass surgery Augus t 2024 11:29am Advance Directives No Advanced Directives Records Found Advance Directive Response Recorded Date/ Time Advance Directives Yes March 9:15am Living Will Yes April 14, 2021 9:15am Power of Link And Link Knitting Machine Operator Yes March 9:15am Advance Directive Response Recorded Date/ Time Advance Directives Yes October 24, 2 024 10:45am Summary Purpose Additional Source Comments Care Teams (unrecognized sec tion and content) Team Status: Active Member Role Status Dates Dr. Laura Rodriguez , DO Family Provider Active Dr. Laura Rodriguez , DO Primary Care Provider Active Team Status: Inactive Member Role Status Dates Dr. Laura Rodriguez , DO Primary Care Provider, Referr ing Provider Active Arnie Youssef DISTRICT OPERATIONS MANAGER, DISTRICT OPERATIONS MANAGER-C Attending Provider Active Team Status: Inactive Member Role Status Dates Dr. Laura Rodriguez DO Primary Care Provider Active Danielle Diaz MD Attending Provider, Referring Pro vider Active Team Status: Inactive Member Role Status Dates Dr. Laura Rodriguez DO Primary Care Provider, Referr ing Provider Active Melecio RYAN, [place] Attending Provider Active Team Status: Active Member Role Status Dates Dr. Laura Rodriguez DO Primary Care Provider Active Dr. Karthikeyan Spencer MD Attending Provider Active Team Status: Active Member Role Status Dates Dr. Laura Rodriguez , DO Primary Care Provider Active Arnie Youssef DISTRICT OPERATIONS MANAGER, DISTRICT OPERATIONS MANAGER-C Attending Provider Active Team Status: Active Member Role Status Dates Dr. Laura Rodriguez DO Primary Care Provider Active Dr. Benito Diaz MD Attending Provider Active Team Status: Inactive Member Role Status Dates Dr. Laura Rodriguez , DO Primary Care Provider Active Arnie Youssef DISTRICT OPERATIONS MANAGER, DISTRICT OPERATIONS MANAGER-C Attending Provider, Referring Pro vider Active Team Status: Active Member Role Status Dates Dr. Laura Rodriguez DO Primary Care Provider Active Team Status: Inactive Member Role Status Dates Dr. Laura Rodriguez DO Primary Care Provider Active Start: September 18, 2024 End: September 18, 2024 Arnie Youssef DISTRICT OPERATIONS MANAGER, DISTRICT OPERATIONS MANAGER-C Attending Provider Active S tart: September 18, 2024 End: September 18, 2024 Arnie Youssef DISTRICT OPERATIONS MANAGER, DISTRICT OPERATIONS MANAGER-C Referring Provider Active S tart: September 18, 2024 End: September 18, 2024 Team Status: Inactive Member Role Status Dates Dr. Laura Rodriguez DO Primary Care Provider Active Start: September 19, 2024 End: September 19, 2024 Dr. Laura Rodriguez DO Referring Provider Active Start: September 19, 2024 End: September 19, 2024 Arnie Youssef DISTRICT OPERATIONS MANAGER, DISTRICT OPERATIONS MANAGER-C Attending Provider Active S tart: September 19, 2024 End: September 19, 2024 Team Status: Inactive Member Role Status Dates Dr. Laura Rodriguez DO Primary Care Provider Active Start: December 17, 2024 End: December 17, 2024 Dr. Benito Diaz MD Attending Provider Active S tart: December 17, 2024 End: December 17, 2024 Team Status: Active Member Role/Relationship Status Dates Dr. Laura Rodriguez DO Primary Care Provider Active Team Status: Inactive Member Role/Relationship Status Dates Dr. Laura Rodriguez DO Primary Care Provider Active Start: December 17, 2024 End: December 17, 2024 Dr. Benito Diaz MD Attending Provider Active S tart: December 17, 2024 End: December 17, 2024 Dr. Benito Diaz MD Referring Provider Active S tart: December 17, 2024 End: December 17, 2024 Team Status: Inactive Member Role/Relationship Status Dates Dr. Laura Rodriguez DO Primary Care Provider Active Start: February 03, 2025 End: February 03, 2025 Arnie Youssef DISTRICT OPERATIONS MANAGER, DISTRICT OPERATIONS MANAGER-C Attending Provider Active S tart: February 03, 2025 End: February 03, 2025 Arnie Youssef DISTRICT OPERATIONS MANAGER, DISTRICT OPERATIONS MANAGER-C Referring Provider Active S tart: February 03, 2025 End: February 03, 2025 Team Status: Inactive Member Role/Relationship Status Dates Dr. Laura Rodriguez DO Primary Care Provider Active Start: February 19, 2025 End: February 19, 2025 Dr. Laura Rodriguez DO Referring Provider Active Start: February 19, 2025 End: February 19, 2025 Arnie Youssef NP, DISTRICT OPERATIONS MANAGER-C Attending Provider Active S tart: February 19, 2025 End: February 19, 2025 Team Status: Inactive Member Role/Relationship Status Dates Dr. Laura Rodriguez DO Primary Care Provider Active Start: March 02, 2025 End: March 02, 2025 Arnie Youssef DISTRICT OPERATIONS MANAGER, DISTRICT OPERATIONS MANAGER-C Attending Provider Active S tart: March 02, 2025 End: March 02, 2025 Arnie Yousesf NP, DISTRICT OPERATIONS MANAGER-C Referring Provider Active S tart: March 02, 2025 End: March 02, 2025 Team Status: Inactive Member Role/Relationship Status Dates Dr. Laura Rodriguez DO Primary Care Provider Active Start: March 13, 2025 End: March 13, 2025 Dr. Benito Diaz MD Attending Provider Active S tart: March 13, 2025 End: March 13, 2025 Team Status: Inactive Member Role/Relationship Status Dates Dr. Laura Rodriguez DO Primary Care Provider Active Start: March 25, 2025 End: March 25, 2025 Dr. Laura Rodriguez DO Referring Provider Active Start: March 25, 2025 End: March 25, 2025 Arnie Youssef NP, DISTRICT OPERATIONS MANAGER-C Attending Provider Active S tart: March 25, 2025 End: March 25, 2025 Goals (unrecognized section and content) Goals may be documented in a n alternate sectionGoals may be documented in an alternate sectionGoals may be documented in an alternate sectionGoals may be documented in an alternate sectionGoals may be documented in an alternate sectionGoals may be documented in an alternate sectionGoals may be documented in an alternate section (unrecognized sect ion and content) No Status Records Found INFORMATION SOURCE (unrecogn ized section and content) DATE CREATED AUTHOR 05/05/2025 [facility] FOR RECORDS PERTAINING TO PATIENTS WHO ARE OR HAVE BEEN ENROLLED IN A CHEMICAL DEPENDENCY/SUBSTANCEABUSE PROGRAM, SOME INFORMATION MAY BE OMITTED. This clinical summary was aggregated from multiple sources. Caution should be exercised in using it in the provision of clinical care. This summary normalizes information from multiple sources, and as a consequence, information in this document may materially change the coding, format and clinical context of patient data. In addition, data may be omitted in some cases. CLINICAL DECISIONS SHOULD BE BASED ON THE PRIMARY CLINICAL RECORDS. [employer] [facility]. provides no warranty or guarantee of the accuracy or completeness of information in this document.
[2025-07-05 17:48] VITALS: BP 126/66; BP 143/64; BP 143/72; PULSE 78; PULSE 84; PULSE 85
[2025-07-05 17:59] LABS: Troponin T High Sensitivity 36 ng/L (<=22)
[2025-07-05] MEDS: 0.9% Normal Saline (1000mL) 1,000 ML 150 ML IV (18:04)
[2025-07-05 18:26] LABS: Anion Gap 14 (5-15); BUN 22 mg/dL (4-19); BUN/Creat Ratio 19.7 RATIO (10-20); Calcium,Total 9.3 mg/dL (7.6-11.0); Carbon Dioxide 22.1 mmol/L (21.0-32.0); Chloride 100 mmol/L (98-108); Estimated Creatinine Clearance 50.42 ml/min (50-250); Glucose 163 mg/dL (70-99); Potassium 3.8 mmol/L (3.3-5.1)
[2025-07-05 18:39] VITALS: BP 119/63; PULSE 65; RESP 18; O2SAT 98
[2025-07-05 19:54] LABS: Troponin T High Sens 2 HR 21 ng/L (<=22)
[2025-07-05 20:18] VITALS: PULSE 78; RESP 14; O2SAT 97
[2025-07-05 20:34] VITALS: BP 119/63; PULSE 78; RESP 14; TEMP 36.7; O2SAT 97
== END 2025-07-05 20:34 | disposition home or self-care (01) ==
PROVIDERS: Emergency Provider Emergency Medicine; PCP Internal Medicine; Visit Provider Emergency Medicine
DX: R42 Dizziness and giddiness (principal); I11.0 Hypertensive heart disease with heart failure; I50.32 Chronic diastolic (congestive) heart failure; I48.91 Unspecified atrial fibrillation; I25.10 Atherosclerotic heart disease of native coronary artery without angina pectoris; Z79.01 Long term (current) use of anticoagulants; E78.00 Pure hypercholesterolemia, unspecified; Z86.711 Personal history of pulmonary embolism; I35.0 Nonrheumatic aortic (valve) stenosis; Z95.1 Presence of aortocoronary bypass graft; Z86.73 Personal history of transient ischemic attack (TIA), and cerebral infarction without residual deficits; R11.0 Nausea; R51.9 Headache, unspecified; Z79.82 Long term (current) use of aspirin; Z95.0 Presence of cardiac pacemaker
CPT/HCPCS: 70450; 80048; 84484; 85025; 93005; 99285; A4216

== ENCOUNTER → 2025-07-10 | Outpatient (CLI) | payer MEDICARE, OTHER, SELFPAY ==
--- NOTE | 2025-07-10 10:51 | ECHOD_ITS ---
Reason For Study : DYSPNEA/SOB Procedure This was a 2D Doppler, Color Flow transthoracic echocardiogram. The patient is in an irregular rhythm. Exam performed in department. Left Ventricle Normal LV size. D shaped septum in diastole. Left ventricular systolic function is normal. The left ventricular ejection fraction is 55 %. Right Ventricle Normal RV size. Normal systolic function. Atria The left atrium is mildly enlarged. Normal right atrium. Tricuspid Valve Normal tricuspid valve. Mild (1+) tricuspid valve insufficiency. Pulmonary artery systolic pressure is 38 mmHg. Aortic Valve Trisinus/trileaflet aortic valve. Moderate focal aortic valve calcification. Peak aortic valve gradient 47 mmHg. Mean aortic valve gradient 30 mmHg. Moderate aortic stenosis. Mild (1+) aortic valve insufficiency. Pulmonic Valve Normal pulmonic valve. Mild (1+) pulmonic valve insufficiency. Great Vessels Normal aortic root. The pulmonary artery is normal size. Inferior vena cava collapse with respiration. Pericardium/Pleural No pericardial effusion. MMode/2D Measurements & Calculations LVIDd: 4.9 cm IVSd: 0.76 cm LVOT diam: 2.0 cm LVIDs: 3.1 cm LVPWd: 0.86 cm LVOT area: 3.3 cm2 RVDd: 4.0 cm FS: 36.4 % Ao root diam: 3.0 cm LAV(MOD-bp): 68.6 ml LVAd ap4: 29.1 cm2 LAV(MOD-bp) Indexed: 33.9 ml/m2 LVLd ap4: 8.2 cm LAV(MOD-sp2): 66.2 ml EDV(MOD-sp4): 83.9 ml LAV(MOD-sp4): 64.2 ml EDV(sp4-el): 87.1 ml LVAs ap4: 17.5 cm2 LVLs ap4: 6.6 cm ESV(MOD-sp4): 38.8 ml ESV(sp4-el): 39.0 ml EF(MOD-sp4): 53.7 % EF(sp4-el): 55.2 % SV(MOD-sp4): 45.1 ml LVAd ap2: 31.7 cm2 EDV(MOD-bp): 93.6 ml LVLd ap2: 8.5 cm ESV(MOD-bp): 38.2 ml SI(MOD-sp4): 22.2 ml/m2 EDV(MOD-sp2): 100.2 ml EF(MOD-bp): 59.2 % EDV(sp2-el): 100.7 ml LVAs ap2: 17.1 cm2 LVLs ap2: 6.5 cm ESV(MOD-sp2): 38.3 ml ESV(sp2-el): 38.2 ml EF(MOD-sp2): 61.8 % SV(MOD-sp2): 61.9 ml SV(sp4-el): 48.1 ml LA A4 area: 24.0 cm2 SI(MOD-sp2): 30.5 ml/m2 LA dimension(2D): 4.9 cm TAPSE: 1.4 cm RA A4 area: 18.7 cm2 Time Measurements MV dec time: 0.19 sec Doppler Measurements & Calculations MV E max memo: 114.8 cm/sec Ao V2 max: 342.6 cm/sec AI max memo: 339.5 cm/sec Ao max P.9 mmHg AI max P.1 mmHg Ao V2 mean: 258.0 cm/sec Ao mean P.6 mmHg AI dec slope: 224.4 cm/sec2 Ao V2 VTI: 83.5 cm AI P1/2t: 443.2 msec AV (velocity ratio): 0.33 ERIN(I,D): 1.1 cm2 ERIN(V,D): 1.2 cm2 LV V1 max: 123.8 cm/sec SV(LVOT): 91.4 ml PA V2 max: 63.2 cm/sec LV V1 max P.1 mmHg LV V1 mean P.8 mmHg LV V1 mean: 93.7 cm/sec LV V1 VTI: 27.8 cm PI end-d memo: 127.1 cm/sec TR max memo: 291.4 cm/sec TR max P.0 mmHg ECHO/Echo Complete Interpretation Summary Normal LV size. Left ventricular systolic function is normal. The left ventricular ejection fraction is 55 %. D shaped septum in diastole. Mean aortic valve gradient 30 mmHg. Moderate aortic stenosis. Ordering Physician: Cheng Youssef Referring Physician: Laura Shannon Performed By: Skylar Ayala RDCS
== END | disposition home or self-care (01) ==
LOC: CVS 10:50
PROVIDERS: PCP Internal Medicine; Referring Provider Nurse Practitioner Family; Visit Provider Nurse Practitioner Family
DX: I35.2 Nonrheumatic aortic (valve) stenosis with insufficiency (principal); I50.32 Chronic diastolic (congestive) heart failure; I11.0 Hypertensive heart disease with heart failure; I48.19 Other persistent atrial fibrillation; I49.5 Sick sinus syndrome; Z95.1 Presence of aortocoronary bypass graft; E78.00 Pure hypercholesterolemia, unspecified
CPT/HCPCS: 93306